=== PATIENT | male | born 1960 | race Caucasian/White ===

== ENCOUNTER 2017-12-07 08:31 | Inpatient (IN) ==
--- NOTE | 2017-12-07 08:39 | Emergency Department Report ---
Dizziness HPI - General Stated Complaint: dizzy,no appetite, Time Seen by Provider: 12/07/17 08:39 Source: patient Mode of arrival: ambulatory Limitations: no limitations - History of Present Illness HPI Narrative: Patient is a 57-year-old male presents emergency room for evaluation of a chief complaint of dizziness. Patient states he has been dizzy for about a week, and "not feeling well". Patient has not been eating well or drinking well for the past several days, did see his primary medical physician today for medication check, at that time patient was found to have a blood pressure of 80/50, so patient was referred to the ER for evaluation. Patient denies any chest pain or shortness of breath fevers or chills. Patient did urinate this morning " very dark". MD complaint: dizziness, lightheadedness Onset (ago): week(s) - Related Data Home Medications Medication Instructions Recorded Confirmed Cholecalciferol (Vitamin D3) 400 unit PO DAILY #0 03/04/16 12/07/17 [Vitamin D3] Etanercept [Enbrel Sureclick] 50 mg SQ WEEKLY #392 03/04/16 12/07/17 Diclofenac [Voltaren] 1 applicatio TOP BID PRN 12/07/17 12/07/17 Fluticasone Nasal [place] [Flonase] 1 spray EA NOSTRIL DAILY PRN 12/07/17 12/07/17 Hydrocodone/APAP 5/325 [[place] 1 tab PO QID PRN 12/07/17 12/07/17 5/325] azaTHIOprine [Imuran] 50 mg PO BID 12/07/17 12/07/17 Allergies Allergy/AdvReac Type Severity Reaction Status Date / Time No Known Allergies Allergy Verified 12/07/17 09:09 Review of Systems Constitutional: Reports: weakness. Denies: fever, chills Eyes: Denies: eye pain, eye discharge, vision change ENT: Denies: throat pain, dental pain Cardiovascular: Denies: chest pain, palpitations, dyspnea on exertion Respiratory: Denies: cough, dyspnea, wheezes Gastrointestinal: Denies: abdominal pain, nausea, vomiting Genitourinary: Denies: dysuria, frequency Musculoskeletal: Denies: back pain Neurological: Denies: headache, weakness Psychiatric: Denies: anxiety, depression Endocrine: Denies: fatigue, heat or cold intolerance PFSH Patient Stated Medical History Other HEENT Yes: a lot of sore throats Pneumonia Yes Other Musculoskeletal Yes: RA Shingles Yes Medical History Updates: Rheumatoid arthritis. History of alcohol - Social History Substance use type: does not use Physical Exam - Limitations Limitations: no limitations - General General appearance: alert, in no apparent distress - Eye Eye exam: Present: PERRL, EOMI - ENT ENT exam: Present: normal oropharynx, mucous membranes dry, TM's normal bilaterally - Neck Neck exam: Present: full ROM - Chest Chest inspection: Present: symmetric chest wall rise. Absent: tenderness - Respiratory Respiratory exam: Present: normal lung sounds bilaterally. Absent: respiratory distress, wheezes, stridor - Cardiovascular Cardiovascular exam: Present: regular rate, normal rhythm, normal heart sounds - Abdominal Exam Abdominal exam: Present: soft, normal bowel sounds. Absent: distention, tenderness - Skin Skin exam: Present: warm, dry, pallor - Neurological Exam Neurological exam: Present: alert, oriented X3 - Psychiatric Psychiatric exam: Present: normal affect, normal mood Course Vital Signs Temperature 98.8 F 12/07/17 08:31 Pulse Rate 138 H 12/07/17 08:31 Respiratory Rate 18 12/07/17 08:31 Blood Pressure 97/51 12/07/17 08:31 Pulse Oximetry 91 12/07/17 08:31 Temperature 98.8 F 12/07/17 08:31 Pulse Rate 138 H 12/07/17 08:31 Respiratory Rate 18 12/07/17 08:31 Blood Pressure 97/51 12/07/17 08:31 Pulse Oximetry 91 12/07/17 08:31 Dizziness - MDM Narrative Medical decision making narrative: Discuss case with Dr. Ying, he will admit patient CCU septic shock right upper lobe pneumonia - Medical Records Attestation: I reviewed the patient's medical records. - Lab Data Attestation: I reviewed the patient's lab results. Result diagrams: 12/07/17 08:49 12/07/17 08:49 Lab Results 12/07/17 12/07/17 12/07/17 Range/Units 08:49 08:49 08:49 WBC 3.7 L (4.5-11.0) T/MM3 RBC 2.38 L (4.50-5.90) M/MM3 Hgb 8.9 L (13.5-17.5) GM/DL Hct 24.6 L (41-53) % MCV 103.4 H (80-100) UM3 MCH 37.4 H (26-34) UUG MCHC 36.2 (31-37) GM/DL RDW Std Deviation 55.7 H (36.9-50.2) FL Plt Count 16 L* (130-400) T/MM3 MPV Not performed Immature Gran % (Auto) Not performed Neut % (Auto) Not performed Lymph % (Auto) Not performed [place] % (Auto) Not performed Eos % (Auto) Not performed Baso % (Auto) Not performed Neut # (Auto) Not performed Lymph # (Auto) Not performed [place] # (Auto) Not performed Eos # (Auto) Not performed Baso # (Auto) Not performed Abs Immat Gran (auto) Not performed Neutrophils % (Manual) 73.0 H (33-66) % Band Neutrophils % 9.0 H (0-6) % Lymphocytes % (Manual) 9.0 L (23-45) % Monocytes % (Manual) 8.0 (0-9.0) % Metamyelocytes % 1.0 H (0-0) % Neutrophils # (Manual) 2.7 (1.8-7.7) T/MM3 Band Neutrophils # 0.3 T/MM3 Lymphocytes # (Manual) 0.3 L (1-4.8) T/MM3 Monocytes # (Manual) 0.3 (0-0.8) T/MM3 Metamyelocytes # 0.0 T/MM3 Nucleated RBCs 4 Polychromasia 1+ Anisocytosis 1+ Macrocytosis 1+ Tear Drop Cells 1+ Helmet Cells 1+ Schistocytes 1+ RBC Morph Comment Abnormal INR 1.14 (0.99-1.21) Turbidity < 20 (0-20) Sodium 126 L (134-144) MEQ/L Potassium 4.8 (3.6-5) MEQ/L Chloride 90 L (98-107) MEQ/L Carbon Dioxide 23 (22-30) MEQ/L Anion Gap 13 (5-15) MEQ/L BUN 26.0 H (9-20) MG/DL Creatinine 0.9 (0.8-1.5) MG/DL GFR Calculation 87 BUN/Creatinine Ratio 29 H (6-26) RATIO Glucose 135 H (75-110) MG/DL Calculated Osmolality 250 L (261-280) MOSM/KG Calcium 10.4 H (8.4-10.2) MG/DL Total Bilirubin 2.40 H (0.20-1.30) MG/DL Icterus Index < 2 (0-7) AST 143 H (17-59) U/L ALT 65 (21-72) U/L Alkaline Phosphatase 553 H (38-126) U/L Creatine Kinase 125 (55-170) U/L Troponin I < 0.012 (0-0.12) ng/ml Total Protein 6.0 L (6.3-8.2) G/DL Albumin 2.8 L (3.5-5.0) G/DL Globulin 3.2 (2.4-3.6) G/DL Albumin/Globulin Ratio 0.9 L (1.1-2.2) RATIO Lipase 226 (23-300) U/L Plasma Lactate 4.5 H* (0.6-2.2) MMOL/L Procalcitonin NG/ML Specimen Hemolysis 52 H (0-25) 12/07/17 Range/Units 08:49 WBC (4.5-11.0) T/MM3 RBC (4.50-5.90) M/MM3 Hgb (13.5-17.5) GM/DL Hct (41-53) % MCV (80-100) UM3 MCH (26-34) UUG MCHC (31-37) GM/DL RDW Std Deviation (36.9-50.2) FL Plt Count (130-400) T/MM3 MPV Immature Gran % (Auto) Neut % (Auto) Lymph % (Auto) [place] % (Auto) Eos % (Auto) Baso % (Auto) Neut # (Auto) Lymph # (Auto) [place] # (Auto) Eos # (Auto) Baso # (Auto) Abs Immat Gran (auto) Neutrophils % (Manual) (33-66) % Band Neutrophils % (0-6) % Lymphocytes % (Manual) (23-45) % Monocytes % (Manual) (0-9.0) % Metamyelocytes % (0-0) % Neutrophils # (Manual) (1.8-7.7) T/MM3 Band Neutrophils # T/MM3 Lymphocytes # (Manual) (1-4.8) T/MM3 Monocytes # (Manual) (0-0.8) T/MM3 Metamyelocytes # T/MM3 Nucleated RBCs Polychromasia Anisocytosis Macrocytosis Tear Drop Cells Helmet Cells Schistocytes RBC Morph Comment INR (0.99-1.21) Turbidity (0-20) Sodium (134-144) MEQ/L Potassium (3.6-5) MEQ/L Chloride (98-107) MEQ/L Carbon Dioxide (22-30) MEQ/L Anion Gap (5-15) MEQ/L BUN (9-20) MG/DL Creatinine (0.8-1.5) MG/DL GFR Calculation BUN/Creatinine Ratio (6-26) RATIO Glucose (75-110) MG/DL Calculated Osmolality (261-280) MOSM/KG Calcium (8.4-10.2) MG/DL Total Bilirubin (0.20-1.30) MG/DL Icterus Index (0-7) AST (17-59) U/L ALT (21-72) U/L Alkaline Phosphatase (38-126) U/L Creatine Kinase (55-170) U/L Troponin I (0-0.12) ng/ml Total Protein (6.3-8.2) G/DL Albumin (3.5-5.0) G/DL Globulin (2.4-3.6) G/DL Albumin/Globulin Ratio (1.1-2.2) RATIO Lipase (23-300) U/L Plasma Lactate (0.6-2.2) MMOL/L Procalcitonin 12.91 H* NG/ML Specimen Hemolysis (0-25) - Radiology Data Attestation: I reviewed the patient's radiology results. Chest x-ray shows right upper lobe pneumonia Disposition Clinical Impression: Septic shock Right upper lobe pneumonia Qualifiers: Pneumonia type: due to unspecified organism Qualified Code(s): J18.1 - Lobar pneumonia, unspecified organism Disposition: 02 To [facility] Acute Care Condition: Stable Prescriptions: No Action Cholecalciferol (Vitamin D3) [Vitamin D3] 400 unit PO DAILY #0 Fluticasone Nasal [place] [Flonase] 1 spray EA NOSTRIL DAILY PRN PRN Reason: Prn Orders azaTHIOprine [Imuran] 50 mg PO BID Diclofenac [Voltaren] 1 applicatio TOP BID PRN PRN Reason: Pain Etanercept [Enbrel Sureclick] 50 mg SQ WEEKLY #392 Hydrocodone/APAP 5/325 [[place] 5/325] 1 tab PO QID PRN PRN Reason: Pain Referrals: Jair Danielle MD [Family Provider] - Time of Disposition: 09:58 - Seen By: physician
[2017-12-07] MEDS ORDERED: NS 1,000 ML IV ONE ×2 (08:43→09:13)
[2017-12-07] MEDS ORDERED: CEFEPIME 1 GM in NS 100 ML IV ONE (08:43)
[2017-12-07] MEDS: SALINE FLUSH 10ml SYRINGE IVF PRN ×3 (08:54→18:35)
--- NOTE | 2017-12-07 09:46 | XRay Report ---
Indication: dizziness shortness of air sepsis workup XR chest 2V: Comparison: 04/23/2012 Technique: PA and lateral chest Findings: Patient continues to show chronic appearing lung changes without superimposed pneumonic infiltrate involving the lower portion of the right upper lobe laterally. Follow-up after aggressive medical treatment suggested. Heart, mediastinum and central vascularity are unremarkable. Left lung shows no acute findings. Patient showed degenerative changes throughout the spine similar to the previous study. No new fractures are identified. Impression: 1. Probable pneumonic infiltrate involving the right upper lobe with follow-up imaging recommended after treatment. .
--- NOTE | 2017-12-07 10:36 | History & Physical Report ---
History of Present Illness Date: 12/07/17 Chief complaint: WEAKNESS HPI: "Jumana Baker is a 57 year-old immunocompromised male with a history of rheumatoid arthritis. He sees Dr. Hetal Jolly for RA and Dr. Finn Danielle for primary care. He reports that he's been sick with mild cough, shortness of breath dizziness and lightheadedness which is worse with change in positions, generalized weakness, poor oral intake (limited to jello, pudding, and tea) and dark-colored urine, sinus drainage, sore throat, headache, and body aches for almost a week. His legs have become very swollen. His friend, Andre, also reported that he's had hallucinations. He's been sleeping more, and he would wake up briefly with hallucinations, fall back asleep. When he woke back up he was lucid again. Edwin denies fevers or chills, vomiting or diarrhea, chest pain , or rashes/easy bruising/bleeding. His , Emelyn, has been trying to care for him at home over the weekend. Andre reports that Edwin finally agreed to see Dr. Danielle on 12/07/17. He was hypotensive, and Dr. Danielle recommended evaluation in the ED. There, his initial BP was 97/61 and HR was 138. Saturation was 91% on room air. IVF bolus per sepsis protocol was started. CXR revealed right sided pneumonia. He was found to be in septic shock with a lactate of 4.5. Procalcitonin was elevated at 12.91. In addition, he had organ dysfunction including thrombocytopenia with platelet count of 16 (which is a new finding -- he has had normal platelet counts in 2017), and hyperbilirubinemia with a total bilirubin of 2.4 (also a new finding). CRP was 570 (typically he is <0.5). Na was low at 126. WBC was low at 3.7; hgb was 8.9. He received 2L fluids in the ED which exceeds the 30 mL/kg bolus for septic shock. He was also started on cefepime. Dr. Vivar was notified and Mr. Baker was admitted to inpatient status for aggressive management of septic shock, organ dysfunction, cardiovascular support, and pneumonia. Review of Systems All systems PM: 10-point ROS was reviewed, no additional remarkable complaints except - Constitutional Constitutional: Present: as per HPI - EENMT Eyes: Absent: change in vision Balance: Present: as per HPI Nose: Present: as per HPI Mouth/Throat: Present: as per HPI - Cardiovascular Cardiovascular: Present: as per HPI Vascular: Present: see HPI - Respiratory Respiratory: Present: as per HPI - Gastrointestinal Gastrointestinal: Present: as per HPI - Genitourinary Genitourinary: Present: as per HPI - Musculoskeletal Musculoskeletal: Present: as per HPI, deformity (hands - RA) - Integumentary/Breasts Integumentary: Present: as per HPI - Neurological Neurological: Present: as per HPI - Psychiatric Psychiatric: Present: as per HPI - Endocrine Endocrine: Absent: polydipsia, polyuria - Hematologic/Lymphatic Hematologic/Lymphatic: Present: as per HPI - Allergic/Immunologic Allergic/Immunologic: Absent: tongue swelling Past Medical History Rheumatoid arthritis Immunocompromised Chronic antritis Depression Insomnia Chronic hyponatremia (131-134) Surgical History: Cyst removed from the left side of his neck Family History Updates: Mother had RA and emphysema. She in the mid but he's not sure of her age. Father had RA and lung cancer. Other records also show CAD. He in the mid but he's not sure of age. patient isn' t sure about medical history of paternal/maternal grandparents. He has 2 brothers with RA, 1 brother who is healthy. 1 step brother and 1 step sister are also healthy. 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 [employer] Social history: PCP - Shashi Jolyl ENT - [place] Medications Home Medications Medication Instructions Recorded Confirmed Type Cholecalciferol (Vitamin D3) 400 unit PO DAILY #0 03/04/16 12/07/17 History [Vitamin D3] Etanercept [Enbrel Sureclick] 50 mg SQ WEEKLY #392 03/04/16 12/07/17 History Diclofenac [Voltaren] 1 applicatio TOP BID PRN 12/07/17 12/07/17 History Fluticasone Nasal [place] [Flonase] 1 spray EA NOSTRIL DAILY PRN 12/07/17 History Hydrocodone/APAP 5/325 [[place] 1 tab PO QID PRN 12/07/17 12/07/17 History 5/325] azaTHIOprine [Imuran] 50 mg PO BID 12/07/17 12/07/17 History Allergies Allergy/AdvReac Type Severity Reaction Status Date / Time No Known Allergies Allergy Verified 12/07/17 09:09 Exam Vital Signs: Temperature 98.8 F 12/07/17 08:31 Pulse Rate 105 H 12/07/17 10:15 Respiratory Rate 20 12/07/17 10:15 Blood Pressure 91/58 12/07/17 10:15 Pulse Oximetry 100 12/07/17 10:15 Telemetry Rhythm: Sinus Tachycardia - Constitutional Present: no acute distress, thin - Routine HEENT Exam Head: Present: normocephalic Eye: Present: PERRL, conjunctival icterus (subtle) ENT: Present: mucous membranes dry, oropharynx clear. Absent: dentition normal (edentulous) - Routine Neck Exam Absent: lymphadenopathy - Routine Respiratory Exam Present: decreased breath sounds, wheezes (very faint, scattered), crackles ( right) - Routine Cardiovascular Exam Present: RRR, S1, S2, tachycardia Comments: radial pulses +2 pedal pulses +1 - Routine Abdominal Exam Present: soft, normoactive bowel sounds, tenderness (RUQ), non distended, organomegaly (hepatomegaly) - Routine Extremities Exam Present: edema (4+ BLE). Absent: normal capillary refill (>2 sec.) Comments: Rheumatoid deformity to hands/fingers - Routine Skin Exam Present: intact, dry, pallor, warm Comments: cap refill >2 sec. - Routine Neurological Exam Present: alert, oriented X3, CN II-XII intact, normal speech - Routine Psychiatric Exam Present: normal affect, normal thought process, cooperative Results - Labs CBC & Chem 7: 12/07/17 08:49 12/07/17 08:49 - ECG Data Tracing #1 I reviewed this ECG and interpreted as documented below: Sinus tachycardia, rate 111; no ST segment depression/elevation - Imaging and Cardiology Chest x-ray Status: image reviewed by me (Rt upper/lower infiltrates) Assessment and Plan (1) Septic shock Current visit: Yes Status: Acute Assessment and Plan: IMPRESSION Sepsis secondary to Right sided pneumonia Septic shock based on lactate of 4.5 (per CMS) Severe sepsis based on 2016 Surviving Sepsis Guidelines Organ dysfunction = MAP <70, hyperbilirubinemia (2.4), thrombocytopenia ( 16) SOFA on admission = 7, presumed baseline of 0 Acute on chronic Hyponatremia, POA (baseline 131-134) Pancytopenia, POA, including platelet count of 16 and hgb of 8.9 Hyperbilirubinemia, elevated AST and Alk phos, POA Hypercalcemia, POA Elevated CRP and procalcitonin, secondary to acute infection Macrocytic anemia Rheumatoid arthritis Immunocompromised Chronic antritis PLAN Admit, inpatient status, to CCU; Patient is critically ill. Dr. Vivar attending. Septic shock based on CMS and Severe Sepsis based on Surviving Sepsis He received full 30 mL/kg bolus in ED. If unable to keep MAP >65, will need to start norepinephrine, which would indicate shock based on 2016 rec. Initial lactate was 4.5; if lactate is still elevated >4 on recheck, this would also indicate shock based on 2016 recommendations. Blood cultures already drawn. Repeat physical exam done. Repeat procalcitonin in am. Sinus tachycardia has improved after fluid boluses, from 138-105. Right sided pneumonia in an immunocompromised patient with significant smoking history. Cefepime was started in the ED -- will continue with this and add vancomycin and cefepime d/t immunocompromised state. Check for strep pneumo and legionella. Check sputum culture. Consult Dr. Mckinney; suspect he may require additional respiratory intervention and with smoking hx likely has underlying COPD. Ev Pan. Ask RT to provide tobacco cessation information. Nicotine patch ordered. Hold RA medications including Enbrel & Imuran. Pancytopenia Suspect d/t sepsis. If no improvement in next few days consider heme consultation. Platelets only 16 on admission. Will give platelet pack x1. Lovenox is contraindicated. Macrocytic anemia - check iron studies, folate, vitamin B12. Hyperbilirubinemia Suspect d/t sepsis. Hepatomegaly and RUQ tenderness. He had liver sono in Aug which was normal. Consider repeating sono. Check INR. Hyponatremia and hypercalcemia Suspect d/t dehydration. Continue IVF and check in am. Advanced directives None. Requests full resuscitation. DVT Prophylaxis: SCD's, GIBRAN Hose Resuscitation Status: Full Code - Time spent with patient Time with patient PN: 50 minutes - Physician Narrative Physician: Wesley Vivar MD Narrative: Date: 12/07/17 Time: 1029 (MEDICAL OFFICE REP), 1305 Cb Have independently interviewed and examined pt. Chart reviewed. Case discussed with ED provider, CCU nursing, and my PATIENT CASE COORDINATOR. Care plan developed with my supervision; agree with above. Feeling sick for at least 1 week-increasing chest congestion and cough. Not mobilizing sputum. Appetite declining-not hungry. Nausea with eating. Progressively more weak, dizzy with positional changes. No falls or trauma. Chills. finally convinced him to go to clinic. Seen there and urgently directed to ED secondary to the acuity of his illness. Meeting septic shock in ED. CXR showing infiltrate. EXAM and Septic Shock evaluation: Lungs: decreased, no distress on 1L O2 CV: tachy, regular. Normal radial pulses bilaterally. MSE: awake alert, converses well. Skin: Normal color and temp, Cap refill less than 2 seconds Plan: Inpatient admission to CCU for treatment of his septic shock - anticipate greater than 2 midnights of care needed. Triple antibiotic therapy secondary to immunosuppression. 30mg/KG IV Bolus given in ED. Continue IVF for support; currently maintaining MAP above 65. O2 for respiratory support. Transfuse platelets. SCD (No Lovenox secondary to thrombocytopenia). Hospital Course Summary Disclaimer: The visit summary below is not to be considered part of the above Progress Note. Hospital Course: 12/07/17 Admit, inpatient status, to CCU; Patient is critically ill. Dr. Vivar attending. Septic shock based on CMS and Severe Sepsis based on Surviving Sepsis He received full 30 mL/kg bolus in ED. If unable to keep MAP >65, will need to start norepinephrine, which would indicate shock based on 2016 rec. Initial lactate was 4.5; if lactate is still elevated >4 on recheck, this would also indicate shock based on 2016 recommendations. Blood cultures already drawn. Repeat physical exam done. Repeat procalcitonin in am. Sinus tachycardia has improved after fluid boluses, from 138-105. Right sided pneumonia in an immunocompromised patient with significant smoking history. Cefepime was started in the ED -- will continue with this and add vanco d/t immunocompromised state. Check for strep pneumo and legionella. Check sputum culture. Consult Dr. Mckinney; suspect he may require additional respiratory intervention and with smoking hx likely has underlying COPD. Ev Pan. Ask RT to provide tobacco cessation information. Nicotine patch ordered. Hold RA medications including Enbrel & Imuran. Pancytopenia Suspect d/t sepsis. If no improvement in next few days consider heme consultation. Platelets only 16 on admission. Will give platelet pack x1. Lovenox is contraindicated. Macrocytic anemia - check iron studies, folate, vitamin B12. Hyperbilirubinemia Suspect d/t sepsis. Hepatomegaly and RUQ tenderness. He had liver sono in Aug which was normal. Consider repeating sono. Check INR. Hyponatremia and hypercalcemia Suspect d/t dehydration. Continue IVF and check in am. Advanced directives None. Requests full resuscitation.
[2017-12-07] MEDS ORDERED: ALBUTEROL/IPRATROPIUM 2.5mg-0.5mg/3ml NEB AEROSOL SCH (11:00)
[2017-12-07] MEDS ORDERED: VANCOMYCIN - PHARMACY CONSULT MC ONE ×2 (11:09→11:21)
[2017-12-07] MEDS ORDERED: CEFEPIME 1 GM in NS 100 ML IV SCH (11:21)
[2017-12-07] MEDS ORDERED: FLUTICASONE NASAL SPRAY 50mcg EA NOSTRIL PRN (11:25)
[2017-12-07] MEDS: NS 1,000 ML IV SCH ×2 (11:38→22:47)
--- NOTE | 2017-12-07 11:54 | Pulmonology Consult Note ---
<Sara Espinosa - Last Filed: 12/07/17 12:14> History of Present Illness Consult date: 12/07/17 Requesting physician: Wesley Vivar Reason for consult: dyspnea, cough, COPD, pneumonia Chief complaint: SOB History of present illness: This is a 57 yo male with a Hx of RA on Imuran and Enbrel for several years. He sees Dr. Hetal Jolly for his RA, was seen in the past 4 months with blood drawn and was told everything was fine and continued on his same therapies. He states for the past week he has had SOB, fatigue and generalization of not feling well. He did notice increased BLE edema, + cough but no sputum. States his SOB continued to increase and he was seen at his PCP's office today where it was recommended he be admitted to the hospital due to hypotension. In the ER his initial BP was 97/61 and HR was 138. Saturation was 91% on room air. He was found to be in septic shock with a lactate of 4.5, Procalcitonin was elevated at 12.91, Na 126, plt 16, CRP 570 (typically he is <0.5), WBC 3.7. CXR revealed right sided pneumonia. He was given cefepime in ER and 2L IVF for sepsis. He was admitted for further cares. We have been consulted for his pneumonia and likely COPD. Review of Systems - Constitutional Constitutional: Present: daytime sleepiness, fatigue, weakness. Absent: anorexia, chills, fever(s), increased appetite - EENT Eyes: Absent: blurry vision, change in vision, diplopia Nose: Absent: change in smell, pain Mouth/Throat: Present: mucosa dry - Cardiovascular Cardiovascular: Present: dyspnea on exertion. Absent: chest pain, palpitations - Respiratory Respiratory: Present: cough, dyspnea, dyspnea on exertion. Absent: wheezing - Gastrointestinal Gastrointestinal: Absent: abdominal pain, change in bowel habits - Musculoskeletal Additional comments: Hx RA, deformities to hands - Integumentary/Breasts Integumentary: Absent: alopecia, change in hair, change in nails - Neurological Neurological: Absent: abnormal movements, abnormal speech - Psychiatric Psychiatric: Present: abnormal sleep pattern. Absent: anxiety, mood swings - Hematologic/Lymphatic Hematologic/Lymphatic: Absent: easy bleeding, easy bruising - Allergic/Immunologic Allergic/Immunologic: Absent: tongue swelling, throat swelling PFSH Patient Stated Medical History Dental Problems Yes: poor fitting dentures Other HEENT Yes: a lot of sore throats Hypotension Yes: with sepsis 11/2017 Pneumonia Yes Other Respiratory Yes: 40 pk/yr hx. started smoking 1977 Gastrointestinal Bleeding Yes: current Clotting Problems Yes: thrombocytopenia Other Musculoskeletal Yes: RA Shingles Yes Medical History Updates: Rheumatoid arthritis. History of alcohol Surgical History: Cyst removed from the left side of his neck - Social History Smoking status: Current every day smoker (started smoking at age 17; has smoked 1-1.5 ppd since then) Housing: house Household members: spouse Medications Home Medications Medication Instructions Recorded Confirmed Type Cholecalciferol (Vitamin D3) 400 unit PO DAILY #0 03/04/16 12/07/17 History [Vitamin D3] Etanercept [Enbrel Sureclick] 50 mg SQ WEEKLY #392 03/04/16 12/07/17 History Diclofenac [Voltaren] 1 applicatio TOP BID PRN 12/07/17 12/07/17 History Fluticasone Nasal [place] [Flonase] 1 spray EA NOSTRIL DAILY PRN 12/07/17 History Hydrocodone/APAP 5/325 [[place] 1 tab PO QID PRN 12/07/17 12/07/17 History 5/325] azaTHIOprine [Imuran] 50 mg PO BID 12/07/17 12/07/17 History Allergies Allergy/AdvReac Type Severity Reaction Status Date / Time No Known Allergies Allergy Verified 12/07/17 09:09 Exam Vital signs: Temperature 98.8 F 12/07/17 08:31 Pulse Rate 105 H 12/07/17 10:15 Respiratory Rate 20 12/07/17 10:15 Blood Pressure 91/58 12/07/17 10:15 Pulse Oximetry 100 12/07/17 10:15 - Constitutional no acute distress, thin, cooperative - Routine HEENT Exam Head: Present: normocephalic, atraumatic Eye: Present: EOMI, PERRL - Routine Neck Exam Present: supple, full ROM, trachea midline - Routine Respiratory Exam Present: rhonchi. Absent: accessory muscle use, patient mechanically ventilated - Routine Cardiovascular Exam Present: RRR, S1, S2, no murmur - Routine Abdominal Exam Present: soft, normoactive bowel sounds - Routine Extremities Exam Present: edema, non tender, full ROM - Routine Back/Spine/Pelvis Exam Back/Spine: Present: full ROM - Routine Skin Exam Present: intact, dry - Routine Neurological Exam Present: alert, oriented X3, CN II-XII intact - Routine Psychiatric Exam Present: normal affect, normal thought process Results - Laboratory Findings CBC and BMP: 12/07/17 08:49 12/07/17 08:49 PT/INR, D-dimer INR 1.14 (0.99-1.21) 12/07/17 08:49 - Diagnostic Findings Chest x-ray: image reviewed (as noted in HPI) Assessment and Plan - Assessment and Plan Acute Hypoxic Respiratory Failure Sepsis RUL pneumonia RA/Immune compromised Pancytopenia - likely 2/2 sepsis Likely COPD Tobaccoism Hyponatremia Plan: Pt currently on O2 at 2L per NC and saad well, keep O2 to keep sats 90-95%. Will increase A/A to q4hr, start acapella. Highly encourage smoking cessation. Pt septic, CXR shows RUL infiltrates, WBC low 3.7, bands 9, procal 12.9, plasma 4.5 , on cefepime, levaquin and vanco. Follow CXR, already received 2L bolus in ER now on NS 125ml/hr. Recheck lactate per protocol and procal in am. Cont to hold Imuran and Enbrel. BC pending, awaiting sputum sample, strep/leg urine antigen pending. - Time Spent With Patient Total time spent is greater than 50% in coordination of care (as documented) at patient's floor/unit and/or counseling patient: 25 - 35 minutes <Christiano Mckinney - Last Filed: 12/08/17 16:45> [facility] Patient Stated Medical History Dental Problems Yes: poor fitting dentures Other HEENT Yes: a lot of sore throats Hypotension Yes: with sepsis 11/2017 Pneumonia Yes Other Respiratory Yes: 40 pk/yr hx. started smoking 1977 Gastrointestinal Bleeding Yes: current Hx Renal Disease No Clotting Problems Yes: thrombocytopenia Other Musculoskeletal Yes: RA Shingles Yes Exam Vital signs: Temperature 98.7 F 12/08/17 13:00 Pulse Rate 138 H 12/08/17 13:30 Respiratory Rate 16 12/08/17 16:14 Blood Pressure 113/66 12/08/17 13:30 Pulse Oximetry 94 12/08/17 16:14 Results - Laboratory Findings CBC and BMP: 12/08/17 11:38 12/08/17 04:28 PT/INR, D-dimer INR 1.14 (0.99-1.21) 12/07/17 08:49 Abnormal lab findings: Abnormal Labs 12/07/17 12/07/17 12/07/17 12:57 18:13 18:34 WBC RBC Hgb Hct MCV MCH RDW Std Deviation Plt Count 28 L* D Neutrophils % (Manual) Lymphocytes % (Manual) Monocytes % (Manual) Neutrophils # (Manual) Lymphocytes # (Manual) Sodium Creatinine BUN/Creatinine Ratio Calculated Osmolality Total Bilirubin AST Alkaline Phosphatase Total Protein Albumin Albumin/Globulin Ratio Prealbumin < 3.0 L Procalcitonin Urine Protein Trace A Urine Ketones Trace A Urine Bilirubin 1+ A 12/08/17 12/08/17 12/08/17 04:28 04:28 04:28 WBC 2.4 L RBC 1.80 L Hgb 6.7 L D Hct 18.9 L D MCV 105.0 H MCH 37.2 H RDW Std Deviation 57.3 H Plt Count 30 L Neutrophils % (Manual) 70.0 H Lymphocytes % (Manual) 11.0 L Monocytes % (Manual) 13.0 H Neutrophils # (Manual) 1.7 L Lymphocytes # (Manual) 0.3 L Sodium 128 L Creatinine 0.6 L D BUN/Creatinine Ratio 28 H Calculated Osmolality 249 L Total Bilirubin 1.40 H AST 63 H D Alkaline Phosphatase 349 H D Total Protein 4.9 L Albumin 2.1 L Albumin/Globulin Ratio 0.8 L Prealbumin Procalcitonin 11.91 H* Urine Protein Urine Ketones Urine Bilirubin 12/08/17 11:38 WBC RBC Hgb 8.7 L D Hct MCV MCH RDW Std Deviation Plt Count Neutrophils % (Manual) Lymphocytes % (Manual) Monocytes % (Manual) Neutrophils # (Manual) Lymphocytes # (Manual) Sodium Creatinine BUN/Creatinine Ratio Calculated Osmolality Total Bilirubin AST Alkaline Phosphatase Total Protein Albumin Albumin/Globulin Ratio Prealbumin Procalcitonin Urine Protein Urine Ketones Urine Bilirubin Assessment and Plan (1) Acute hypoxemic respiratory failure Status: Acute Current Visit: Yes (2) Septic shock Status: Acute Current Visit: Yes - Time Spent With Patient Total time spent is greater than 50% in coordination of care (as documented) at patient's floor/unit and/or counseling patient: - Attestation Attestation Narrative: I have personally interviewed and examined this patient. I have reviewed all pertinent data and discussed the case with the nurse and the family at bedside. I discussed the case with Dr Vivar. The above notes represent my findings and recommendations
[2017-12-07] MEDS: LEVOFLOXACIN PB 750 MG/150 ML BAG IV SCH (12:07)
[2017-12-07] MEDS: NICOTINE 21 MG PATCH TD SCH (12:11)
--- NOTE | 2017-12-07 12:44 | Pharmacy Consult-Antibiotics ---
Pharmacy Consult-Vancomycin - Laboratory Information WBC 3.7 T/MM3 (4.5-11.0) L 12/07/17 08:49 BUN 26.0 MG/DL (9-20) H 12/07/17 08:49 Creatinine 0.9 MG/DL (0.8-1.5) 12/07/17 08:49 Procalcitonin 12.91 NG/ML H* 12/07/17 08:49 - Consult Information 57 y.o. Male admitted with symptoms of shortness of air, lightheadedness, body aches, hypotensive. Chest x-ray report notes probable pneumonia involving the upper right lobe. Cefepime, Levofloxacin and Vancomycin were initiated for empiric coverage of sepsis. Goal Vanco trough range= 15 to 20 mcg/ml Will give a Vancomycin bolus dose of 1,750 mg IV then Vancomycin 1250 mg IV Q12h Pharmacy will monitor and adjust as needed. Thank you for the Vanco dosing consult, Mitali Anderson [facility]
[2017-12-07] MEDS ORDERED: BENZONATATE 100 MG CAPSULE PO PRN (12:48)
[2017-12-07] MEDS ORDERED: PROMETHAZINE/CODEINE ORAL LIQUID 5ml PO PRN (12:49)
[2017-12-07] MEDS ORDERED: BISACODYL 10 MG SUPPOSITORY RECTALLY PRN (12:53)
[2017-12-07] MEDS: NS FLUSH BAG 500ml IV PRN (15:00)
[2017-12-07] MEDS: ALBUTEROL/IPRATROPIUM 2.5mg-0.5mg/3ml NEB AEROSOL SCH ×3 (15:26→22:55)
[2017-12-07] MEDS: HYDROCODONE/APAP 5mg/325mg TABLET PO PRN (16:08)
[2017-12-07] MEDS: CEFEPIME 1 GM in NS 50 ML IV SCH ×2 (16:11→21:09)
[2017-12-07] MEDS: MORPHINE SULFATE 2mg INJECTION IVP PRN (22:07)
[2017-12-08] MEDS: ALBUTEROL/IPRATROPIUM 2.5mg-0.5mg/3ml NEB AEROSOL SCH ×6 (03:17→23:50)
[2017-12-08] MEDS: CEFEPIME 1 GM in NS 50 ML IV SCH ×4 (04:44→21:27)
[2017-12-08] MEDS: NS 1,000 ML IV SCH (05:16)
[2017-12-08] MEDS ORDERED: NS FLUSH BAG 500ml IV PRN (05:27)
--- NOTE | 2017-12-08 08:42 | XRay Report ---
Indication: pna PROCEDURE: XR chest 1V: Encounter: Initial Comparison: December 07, 2017 Findings: New right PICC line in place with the tip projecting over the expected cavoatrial junction. Worsening dense consolidation in the right upper lobe and right infrahilar region. Small right effusion. No pneumothorax. Left lung is grossly clear. Heart size and mediastinal contours are stable. Impression: New right PICC line appears appropriately positioned. Severe right-sided pneumonia. .
[2017-12-08] MEDS: NICOTINE 21 MG PATCH TD SCH (09:22)
[2017-12-08] MEDS: NICOTINE PATCH REMOVAL TD SCH (09:24)
[2017-12-08] MEDS: HYDROCODONE/APAP 5mg/325mg TABLET PO PRN ×2 (09:31→21:26)
--- NOTE | 2017-12-08 10:20 | Progress Note ---
- Date 12/08/17 Subjective: F/U: Septic shock, pneumonia Doing fair. Working more to breath - still with cough/congestion, hard to mobilize sputum. Oral drive decreased-working on intake, but coughs with swallow. Mouth and throat sore. Slight nausea, not having ab pain or cramping. Very weak in general. Objective Vital signs: Temperature 98.4 F 12/08/17 08:00 Pulse Rate 132 H 12/08/17 08:00 Respiratory Rate 22 12/08/17 08:00 Blood Pressure 113/63 12/08/17 08:00 Pulse Oximetry 93 12/08/17 08:00 Height/Weight/BMI: Height 1.7 m Weight 61.1 kg Body Mass Index 21.1 - Constitutional Present: mild distress, well developed, average body habitus, cooperative. Absent: agitated - Routine HEENT Exam Head: Present: normocephalic, atraumatic Eye: Present: EOMI, PERRL ENT: Present: mucous membranes dry - Routine Respiratory Exam Present: decreased breath sounds, rales, respiratory distress, rhonchi, distant breath sounds, diminished air movement - Routine Cardiovascular Exam Present: no murmur, tachycardia (Regular) - Routine Abdominal Exam Present: soft, non distended, non tender. Absent: normoactive bowel sounds ( Decreased ) - Routine Extremities Exam Present: edema (+2 pedal edema bilaterally), pulses intact, normal capillary refill. Absent: cyanosis, clubbing Comments: SCD in place - Routine Musculoskeletal Exam Musculoskeletal: Present: no clubbing or cyanosis - Routine Skin Exam Present: warm. Absent: mottling - Routine Neurological Exam Present: alert, oriented X3, CN II-XII intact, moving all extremities, vision grossly intact, hearing grossly intact, normal speech. Absent: motor deficit, altered mental status - Routine Psychiatric Exam Present: normal affect, normal thought process, cooperative. Absent: anxious, agitated Results - Labs CBC & Chem 7: 12/08/17 04:28 12/08/17 04:28 Microbiology Results: Microbiology 12/07/17 12:45 Sputum, Expectorated Gram Stain - Final 12/07/17 12:45 Sputum, Expectorated Sputum Culture - Preliminary Culture Initiated - Results Pending Assessment and Plan (1) Septic shock Current visit: Yes Status: Acute (2) Pneumonia Current visit: Yes Status: Acute Assessment and Plan: IMPRESSION Sepsis secondary to Right sided pneumonia Septic shock based on lactate of 4.5 (per CMS) Severe sepsis based on 2016 Surviving Sepsis Guidelines Organ dysfunction = MAP <70, hyperbilirubinemia (2.4), thrombocytopenia ( 16) SOFA on admission = 7, presumed baseline of 0 Pneumonia Hypoxia Acute on chronic Hyponatremia (POA) (baseline 131-134) Pancytopenia (POA) including platelet count of 16 and hgb of 8.9 Hyperbilirubinemia, elevated AST and Alk phos, POA Hypercalcemia (POA) Elevated CRP and procalcitonin, secondary to acute infection Severe PCM - prealbumin undetectable Macrocytic anemia Rheumatoid arthritis Immunocompromised Chronic antritis Tobacco dependency PLAN Continue with levofloxacin, cefepime and vancomycin for pulmonary coverage. Neb treatments and acapella to continue. Monitor saturations and work of breathing - on 2L currently. Will have speech check swallow secondary to coughing with swallow. Hemoglobin decreased to 6.7 - transfusion initiated. Iron/B12/Folate tests pending. Platelets increased to 30K. Monitor. No Lovenox due to thrombocytopenia. Sodium with slight improvement to 128, but potassium decreased to 3.7. Will change IVF to NS with 20KCl and 20KPhos and decrease rate to 75cc/hr. BP improved. Recheck CMP, Mg, Phos, Procalcitonin, and CBC secondary to resolving septic shock. Continues to need close nursing care and support, continue CCU monitoring. Case discussed with CCU nursing. Time spent with patient care 25 minutes. DVT Prophylaxis: SCD's Resuscitation Status: Full Code - Time spent with patient Time with patient PN: 25 minutes - Physician Narrative Physician: Wesley Vivar MD Narrative: Date: 12/08/17 Time: 1016 Hospital Course Summary Disclaimer: The visit summary below is not to be considered part of the above Progress Note. Hospital Course: 12/07/17 Admit, inpatient status, to CCU; Patient is critically ill. Dr. Vivar attending. Septic shock based on CMS and Severe Sepsis based on Surviving Sepsis He received full 30 mL/kg bolus in ED. If unable to keep MAP >65, will need to start norepinephrine, which would indicate shock based on 2016 rec. Initial lactate was 4.5; if lactate is still elevated >4 on recheck, this would also indicate shock based on 2016 recommendations. Blood cultures already drawn. Repeat physical exam done. Repeat procalcitonin in am. Sinus tachycardia has improved after fluid boluses, from 138-105. Right sided pneumonia in an immunocompromised patient with significant smoking history. Cefepime was started in the ED -- will continue with this and add vancomycin and levofloxacin d/t immunocompromised state. Check for strep pneumo and legionella. Check sputum culture. Consult Dr. Mckinney; suspect he may require additional respiratory intervention and with smoking hx likely has underlying COPD. Acapella, DuoNeb. Ask RT to provide tobacco cessation information. Nicotine patch ordered. Hold RA medications including Enbrel & Imuran. Pancytopenia Suspect d/t sepsis. If no improvement in next few days consider heme consultation. Platelets only 16 on admission. Will give platelet pack x1. Lovenox is contraindicated. SCD for DVT prevention. Macrocytic anemia - check iron studies, folate, vitamin B12. Hyperbilirubinemia Suspect d/t sepsis. Hepatomegaly and RUQ tenderness. He had liver sono in Aug which was normal. Check INR. Hyponatremia and hypercalcemia Suspect d/t dehydration. Continue IVF and check in am. Advanced directives None. Requests full resuscitation. 11/28/17 Continue with levofloxacin, cefepime and vancomycin for pulmonary coverage. Neb treatments and acapella to continue. Monitor saturations and work of breathing - on 2L currently. Will have speech check swallow secondary to coughing with swallow. Hemoglobin decreased to 6.7 - transfusion initiated. Iron/B12/Folate tests pending. Platelets increased to 30K. Monitor. No Lovenox due to thrombocytopenia. Sodium with slight improvement to 128, but potassium decreased to 3.7. Will change IVF to NS with 20KCl and 20KPhos and decrease rate to 75cc/hr. BP improved. Recheck CMP, Mg, Phos, Procalcitonin, and CBC secondary to resolving septic shock. Continues to need close nursing care and support, continue CCU monitoring.
[2017-12-08] MEDS: POTASSIUM CHLORIDE INJ 20 MEQ, POTASSIUM PHOSPHATE (mEq) 20 MEQ in NS 1,000 ML IV SCH (10:56)
[2017-12-08] MEDS: LEVOFLOXACIN PB 750 MG/150 ML BAG IV SCH (11:00)
[2017-12-08] MEDS: SALINE 0.65% NASAL SPRAY 44 ML BOTTLE EA NOSTRIL SCH ×4 (11:01→21:26)
[2017-12-08] MEDS: SALINE FLUSH 10ml SYRINGE IVF PRN (13:37)
[2017-12-08] MEDS: NS FLUSH BAG 500ml IV PRN (21:28)
[2017-12-09] MEDS: CEFEPIME 1 GM in NS 50 ML IV SCH ×4 (03:00→22:40)
[2017-12-09] MEDS: POTASSIUM CHLORIDE INJ 20 MEQ, POTASSIUM PHOSPHATE (mEq) 20 MEQ in NS 1,000 ML IV SCH (03:44)
[2017-12-09] MEDS: ALBUTEROL/IPRATROPIUM 2.5mg-0.5mg/3ml NEB AEROSOL SCH ×6 (04:11→23:07)
[2017-12-09] MEDS: HYDROCODONE/APAP 5mg/325mg TABLET PO PRN (08:00)
[2017-12-09] MEDS: NICOTINE PATCH REMOVAL TD SCH (09:14)
[2017-12-09] MEDS: NICOTINE 21 MG PATCH TD SCH (09:14)
[2017-12-09] MEDS: SALINE 0.65% NASAL SPRAY 44 ML BOTTLE EA NOSTRIL SCH ×4 (09:14→21:27)
[2017-12-09] MEDS ORDERED: NS FLUSH BAG 500ml IV PRN (10:36)
[2017-12-09] MEDS ORDERED: DiphenhydrAMINE 25 MG CAPSULE PO ONE (10:36)
--- NOTE | 2017-12-09 10:49 | Pulmonology Progress Note ---
Subjective Principal diagnosis: pneumonia Interval history: Pt sitting up in the bed. States his breathing is doing ok. No real SOB at this time, + cough with sputum, on O2 at 2L. Exam Vital signs: Temperature 98.0 F 12/09/17 03:30 Pulse Rate 112 H 12/09/17 07:00 Respiratory Rate 22 12/09/17 07:06 Blood Pressure 111/75 12/09/17 07:00 Pulse Oximetry 91 12/09/17 07:06 Inpatient Medications: Generic Name Dose Route Start Last Admin Trade Name Freq PRN Reason Stop Dose Admin Hydrocodone Bitart/Acetaminophen 1 tab 12/07/17 11:21 12/09/17 08:00 [place] 5/325 PO 1 tab QID PRN Administration Pain Albuterol/Ipratropium 3 ml 12/07/17 16:00 12/09/17 07:06 Duoneb AEROSOL 3 ml Q4HR RANDALL Administration Benzonatate 100 mg 12/07/17 12:48 Tessalon Perles PO TID PRN Cough Bisacodyl 10 mg 12/07/17 12:53 Dulcolax RECTALLY DAILY PRN Constipation Clotrimazole 10 mg 12/09/17 12:00 Mycelex Pj MM 5XD RANDALL Fluticasone Propionate 1 spray 12/07/17 11:25 Flonase EA NOSTRIL DAILY PRN PRN orders Cefepime HCl 1 gm/ Sodium 50 mls @ 100 mls/hr 12/07/17 16:00 12/09/17 09:53 Chloride IV 100 mls/hr Q6H RANDALL Administration Levofloxacin/Dextrose 750 mg in 150 mls @ 100 mls/hr 12/07/17 11:21 12/08/17 12:30 Levaquin Premix IV Infused Q24H RANDALL Infusion Vancomycin HCl 1,250 mg/ 250 mls @ 200 mls/hr 12/08/17 02:00 12/09/17 02:30 Sodium Chloride IV Infused Q12H RANDALL Infusion Potassium Chloride 20 meq/ 1,014.5455 mls @ 75 mls/hr 12/08/17 09:45 07:00 Potassium Phosphate 20 meq/ IV 75 mls/hr Sodium Chloride .[id number] RANDALL Infusion Lorazepam 0.25 mg 12/07/17 12:48 Ativan Inj IVP Q4H PRN Air hunger/Anxiety Magnesium Hydroxide 30 ml 12/07/17 12:53 Mom PO DAILY PRN Constipation Morphine Sulfate 2 mg 12/07/17 12:47 12/07/17 22:07 Morphine Sulfate Inj IVP 1 mg Q2HR PRN Administration Pain Nicotine 21 mg 12/07/17 10:45 12/09/17 09:14 Nicoderm TD 21 mg DAILY RANDALL Administration Nicotine 1 removal 12/08/17 09:00 12/09/17 09:14 Nicotine Patch Removal TD 1 removal DAILY RANDALL Administration Ondansetron HCl 4 mg 12/07/17 11:21 Zofran IVP Q6H PRN Nausea Promethazine HCl/Codeine 5 ml 12/07/17 12:49 Phenergan + Codeine PO Q6HR PRN Cough Sodium Chloride 10 - 80 ml 12/07/17 08:43 12/08/17 13:37 Iv Flush IVF 40 ml PRN PRN Administration [place] Sodium Chloride 500 ml 12/07/17 11:24 12/08/17 21:28 Normal Saline IV 500 ml PRN PRN Administration Sodium Chloride 2 spray 12/08/17 10:15 12/09/17 09:14 [place] Nasal Moisturizing [place] EA NOSTRIL 2 spray QID RANDALL Administration Sodium Chloride 500 ml 12/09/17 10:36 Normal Saline IV PRN PRN Discontinued Medications Generic Name Dose Route Start Last Admin Trade Name Freq PRN Reason Stop Dose Admin Albuterol/Ipratropium 3 ml 12/07/17 11:00 12/07/17 16:44 Duoneb AEROSOL Not Given RTQID RANDALL Diphenhydramine HCl 50 mg 12/09/17 10:36 Benadryl PO 12/09/17 10:37 ONCE ONE Cefepime HCl 1 gm/ Sodium 100 mls @ 200 mls/hr 12/07/17 08:43 12/07/17 09:33 Chloride IV 12/07/17 09:12 Infused O ONE Infusion Sodium Chloride 1,000 mls @ 1,000 mls/hr 12/07/17 08:43 12/07/17 10:08 Normal Saline IV 12/07/17 09:42 Infused .Q1H ONE Infusion Sodium Chloride 1,000 mls @ 999.9 mls/hr 12/07/17 09:13 12/07/17 11:38 Normal Saline IV 12/07/17 10:12 Infused .Q1H ONE Infusion Sodium Chloride 1,000 mls @ 125 mls/hr 12/07/17 11:21 12/08/17 10:31 Normal Saline IV Infused .Q8H RANDALL Infusion Vancomycin HCl 1,750 mg/ 500 mls @ 250 mls/hr 12/07/17 14:00 12/07/17 15:00 Sodium Chloride IV 12/07/17 14:01 Infused O ONE Infusion Sodium Chloride 500 mls @ 500 mls/hr 12/08/17 03:40 12/08/17 03:40 Normal Saline IV 12/08/17 04:39 Not Given .Q1H ONE Sodium Chloride 500 mls @ 500 mls/hr 12/08/17 05:30 12/08/17 05:17 Normal Saline IV 12/08/17 06:30 Not Given .Q1H RANDALL Vancomycin HCl 1 each 12/07/17 11:09 Pharmacy Consult - Vancomycin 12/07/17 11:10 O ONE Vancomycin HCl 1 each 12/07/17 11:21 Pharmacy Consult - Vancomycin 12/07/17 11:22 O ONE - Constitutional no acute distress, thin, cooperative - Routine HEENT Exam Head: Present: normocephalic, atraumatic Eye: Present: EOMI, PERRL ENT: Present: mucous membranes moist - Routine Neck Exam Present: supple, full ROM, trachea midline - Routine Respiratory Exam Present: decreased breath sounds, crackles. Absent: accessory muscle use, patient mechanically ventilated - Routine Cardiovascular Exam Present: RRR, S1, S2, no murmur - Routine Abdominal Exam Present: soft, normoactive bowel sounds - Routine Extremities Exam Present: no edema, non tender - Routine Skin Exam Present: intact, dry - Routine Neurological Exam Present: alert, oriented X3, CN II-XII intact - Routine Psychiatric Exam Present: normal affect, normal thought process - Urinary Catheter Management Urethral Cath placed during this visit: yes Reason for continuing: Prolonged Immobilization Insertion date: 12/07/17 Insertion time: 19:45 Results - Laboratory Findings Laboratory: Laboratory Results - last 48 hr 12/07/17 12/07/17 12/07/17 11:24 12:57 18:13 WBC RBC Hgb Hct MCV MCH MCHC RDW Std Deviation Plt Count MPV Immature Gran % (Auto) Neut % (Auto) Lymph % (Auto) [place] % (Auto) Eos % (Auto) Baso % (Auto) Neut # (Auto) Lymph # (Auto) [place] # (Auto) Eos # (Auto) Baso # (Auto) Abs Immat Gran (auto) Neutrophils % (Manual) Band Neutrophils % Lymphocytes % (Manual) Monocytes % (Manual) Metamyelocytes % Myelocytes % Neutrophils # (Manual) Band Neutrophils # Lymphocytes # (Manual) Monocytes # (Manual) Metamyelocytes # Myelocytes # Nucleated RBCs Polychromasia Anisocytosis Macrocytosis Tear Drop Cells Helmet Cells Schistocytes RBC Morph Comment Turbidity Sodium Potassium Chloride Carbon Dioxide Anion Gap BUN Creatinine GFR Calculation BUN/Creatinine Ratio Glucose Calculated Osmolality Calcium Phosphorus Magnesium Total Bilirubin Icterus Index AST ALT Alkaline Phosphatase Total Protein Albumin Globulin Albumin/Globulin Ratio Prealbumin < 3.0 L Plasma Lactate 2.1 Procalcitonin Specimen Hemolysis Ur Collection Type Urine, void-cc/notcc Urine Color Yellow Urine Clarity Sl cloudy Urine pH 5.5 Ur Specific [place] 1.025 Urine Protein Trace A Urine Glucose (UA) Negative Urine Ketones Trace A Urine Occult Blood Trace-intact Urine Nitrate Negative Urine Bilirubin 1+ A Urine Urobilinogen 1.0 Ur Leukocyte Esterase Negative Urinalysis Comment Microscopic not ind. Blood Product Request 1 unit ppp issued 12/07/17 12/08/17 12/08/17 18:34 04:28 04:28 WBC 2.4 L RBC 1.80 L Hgb 6.7 L D Hct 18.9 L D MCV 105.0 H MCH 37.2 H MCHC 35.4 RDW Std Deviation 57.3 H Plt Count 28 L* D 30 L MPV 11.4 Immature Gran % (Auto) Not performed Neut % (Auto) Not performed Lymph % (Auto) Not performed [place] % (Auto) Not performed Eos % (Auto) Not performed Baso % (Auto) Not performed Neut # (Auto) Not performed Lymph # (Auto) Not performed [place] # (Auto) Not performed Eos # (Auto) Not performed Baso # (Auto) Not performed Abs Immat Gran (auto) Not performed Neutrophils % (Manual) 70.0 H Band Neutrophils % 6.0 Lymphocytes % (Manual) 11.0 L Monocytes % (Manual) 13.0 H Metamyelocytes % Myelocytes % Neutrophils # (Manual) 1.7 L Band Neutrophils # 0.1 Lymphocytes # (Manual) 0.3 L Monocytes # (Manual) 0.3 Metamyelocytes # Myelocytes # Nucleated RBCs 1 Polychromasia 1+ Anisocytosis 1+ Macrocytosis 1+ Tear Drop Cells 1+ Helmet Cells 1+ Schistocytes 1+ RBC Morph Comment Abnormal Turbidity < 20 Sodium 128 L Potassium 3.7 D Chloride 98 D Carbon Dioxide 22 Anion Gap 8 BUN 17.0 Creatinine 0.6 L D GFR Calculation 139 BUN/Creatinine Ratio 28 H Glucose 105 Calculated Osmolality 249 L Calcium 9.8 Phosphorus Magnesium 1.9 Total Bilirubin 1.40 H Icterus Index < 2 AST 63 H D ALT 53 Alkaline Phosphatase 349 H D Total Protein 4.9 L Albumin 2.1 L Globulin 2.8 Albumin/Globulin Ratio 0.8 L Prealbumin Plasma Lactate Procalcitonin Specimen Hemolysis < 15 Ur Collection Type Urine Color Urine Clarity Urine pH Ur Specific [place] Urine Protein Urine Glucose (UA) Urine Ketones Urine Occult Blood Urine Nitrate Urine Bilirubin Urine Urobilinogen Ur Leukocyte Esterase Urinalysis Comment Blood Product Request 12/08/17 12/08/17 12/08/17 04:28 07:54 11:38 WBC RBC Hgb 8.7 L D Hct MCV MCH MCHC RDW Std Deviation Plt Count MPV Immature Gran % (Auto) Neut % (Auto) Lymph % (Auto) [place] % (Auto) Eos % (Auto) Baso % (Auto) Neut # (Auto) Lymph # (Auto) [place] # (Auto) Eos # (Auto) Baso # (Auto) Abs Immat Gran (auto) Neutrophils % (Manual) Band Neutrophils % Lymphocytes % (Manual) Monocytes % (Manual) Metamyelocytes % Myelocytes % Neutrophils # (Manual) Band Neutrophils # Lymphocytes # (Manual) Monocytes # (Manual) Metamyelocytes # Myelocytes # Nucleated RBCs Polychromasia Anisocytosis Macrocytosis Tear Drop Cells Helmet Cells Schistocytes RBC Morph Comment Turbidity Sodium Potassium Chloride Carbon Dioxide Anion Gap BUN Creatinine GFR Calculation BUN/Creatinine Ratio Glucose Calculated Osmolality Calcium Phosphorus Magnesium Total Bilirubin Icterus Index AST ALT Alkaline Phosphatase Total Protein Albumin Globulin Albumin/Globulin Ratio Prealbumin Plasma Lactate Procalcitonin 11.91 H* Specimen Hemolysis Ur Collection Type Urine Color Urine Clarity Urine pH Ur Specific [place] Urine Protein Urine Glucose (UA) Urine Ketones Urine Occult Blood Urine Nitrate Urine Bilirubin Urine Urobilinogen Ur Leukocyte Esterase Urinalysis Comment Blood Product Request 1 unit pc issued 12/09/17 12/09/17 12/09/17 04:50 04:50 04:50 WBC 3.7 L D RBC 2.39 L Hgb 8.2 L Hct 23.4 L D MCV 97.9 MCH 34.3 H MCHC 35.0 RDW Std Deviation 72.3 H Plt Count 19 L* D MPV 10.0 Immature Gran % (Auto) Not performed Neut % (Auto) Not performed Lymph % (Auto) Not performed [place] % (Auto) Not performed Eos % (Auto) Not performed Baso % (Auto) Not performed Neut # (Auto) Not performed Lymph # (Auto) Not performed [place] # (Auto) Not performed Eos # (Auto) Not performed Baso # (Auto) Not performed Abs Immat Gran (auto) Not performed Neutrophils % (Manual) 72.0 H Band Neutrophils % 15.0 H Lymphocytes % (Manual) 10.0 L Monocytes % (Manual) 1.0 Metamyelocytes % 1.0 H Myelocytes % 1.0 H Neutrophils # (Manual) 2.7 Band Neutrophils # 0.6 Lymphocytes # (Manual) 0.4 L Monocytes # (Manual) 0.0 Metamyelocytes # 0.0 Myelocytes # 0.0 Nucleated RBCs Polychromasia Anisocytosis 1+ Macrocytosis Tear Drop Cells Helmet Cells Schistocytes RBC Morph Comment Abnormal Turbidity < 20 Sodium 134 D Potassium 4.2 Chloride 104 D Carbon Dioxide 20 L Anion Gap 10 BUN 15.0 Creatinine 0.6 L GFR Calculation 139 BUN/Creatinine Ratio 25 Glucose 115 H Calculated Osmolality 260 L Calcium 10.6 H D Phosphorus 4.3 Magnesium 2.0 Total Bilirubin 1.50 H Icterus Index < 2 AST 128 H D ALT 65 Alkaline Phosphatase 469 H D Total Protein 5.0 L Albumin 2.2 L Globulin 2.8 Albumin/Globulin Ratio 0.8 L Prealbumin Plasma Lactate Procalcitonin 7.64 H* Specimen Hemolysis < 15 Ur Collection Type Urine Color Urine Clarity Urine pH Ur Specific [place] Urine Protein Urine Glucose (UA) Urine Ketones Urine Occult Blood Urine Nitrate Urine Bilirubin Urine Urobilinogen Ur Leukocyte Esterase Urinalysis Comment Blood Product Request Assessment and Plan - Assessment and Plan Acute Hypoxic Respiratory Failure Sepsis RUL pneumonia RA/Immune compromised Pancytopenia - likely 2/2 sepsis Likely COPD Tobaccoism Hyponatremia - improved Plan: Pt currently on O2 at 2L per NC and saad well, keep O2 to keep sats 90-95%. On A/ A q4hr with acapella. Highly encourage smoking cessation. Last CXR cont to show RUL infiltrates, WBC low 3.7, bands 15, procal 12.9>7.64. On cefepime, levaquin and vanco, temp max 99.3. Cont to hold Imuran and Enbrel. BC NTD, sputum showing early growth, strep/leg urine antigen negative, cont to follow cx's and CXR. - Time Spent With Patient Total time spent is greater than 50% in coordination of care (as documented) at patient's floor/unit and/or counseling patient: less than 15 minutes
[2017-12-09] MEDS: LEVOFLOXACIN PB 750 MG/150 ML BAG IV SCH (10:54)
[2017-12-09] MEDS ORDERED: POTASSIUM CHLORIDE INJ 20 MEQ, POTASSIUM PHOSPHATE (mEq) 20 MEQ in NS 1,000 ML IV SCH (11:00)
--- NOTE | 2017-12-09 11:12 | Progress Note ---
- Date 12/09/17 Subjective: F/U: Septic shock, pneumonia Breathing still short, congested, and with cough. Hard to mobilize sputum. Chest sore from cough. Some nasal congestion. Mouth dry and sore. Appetite with slight increase. Speech saw and changed diet to pureed as it takes so long for him to chew. Speech reports he is swallowing better. Stools slow. Very weak in general. Objective Vital signs: Temperature 98.0 F 12/09/17 03:30 Pulse Rate 112 H 12/09/17 07:00 Respiratory Rate 22 12/09/17 07:06 Blood Pressure 111/75 12/09/17 07:00 Pulse Oximetry 91 12/09/17 07:06 Height/Weight/BMI: Height 1.7 m Weight 68.3 kg Body Mass Index 21.4 - Constitutional Present: moderate distress, well nourished, well developed, average body habitus , cooperative. Absent: combative, agitated - Routine HEENT Exam Head: Present: normocephalic, atraumatic Eye: Present: EOMI, PERRL ENT: Present: mucous membranes dry - Routine Respiratory Exam Present: decreased breath sounds, rales, rhonchi, distant breath sounds, diminished air movement - Routine Cardiovascular Exam Present: no murmur, tachycardia - Routine Abdominal Exam Present: soft, non distended, non tender. Absent: normoactive bowel sounds ( decreased ) - Routine Exam Comments: Rivas present - Routine Extremities Exam Present: pulses intact. Absent: cyanosis, clubbing - Routine Musculoskeletal Exam Musculoskeletal: Present: no clubbing or cyanosis - Routine Skin Exam Present: dry, warm - Routine Neurological Exam Present: alert, oriented X3, CN II-XII intact, moving all extremities, normal speech. Absent: altered mental status - Routine Psychiatric Exam Present: normal affect, normal thought process, cooperative Results - Labs CBC & Chem 7: 12/09/17 04:50 12/09/17 04:50 Microbiology Results: Microbiology 12/07/17 18:13 Urine Legionella Urinary Antigen - Final 12/07/17 18:13 Urine Streptococcus pneumoniae Antigen (M - Final 12/07/17 12:45 Sputum, Expectorated Gram Stain - Final 12/07/17 12:45 Sputum, Expectorated Sputum Culture - Preliminary Early growth Assessment and Plan (1) Septic shock Current visit: Yes Status: Acute (2) Pneumonia Current visit: Yes Status: Acute Assessment and Plan: IMPRESSION Sepsis secondary to Right sided pneumonia Septic shock based on lactate of 4.5 (per CMS) Severe sepsis based on 2016 Surviving Sepsis Guidelines Organ dysfunction = MAP <70, hyperbilirubinemia (2.4), thrombocytopenia ( 16) SOFA on admission = 7, presumed baseline of 0 Pneumonia Hypoxia Acute on chronic Hyponatremia (POA) (baseline 131-134) Pancytopenia (POA) including platelet count of 16 and hgb of 8.9 Hyperbilirubinemia, elevated AST and Alk phos, POA Hypercalcemia (POA) Elevated CRP and procalcitonin, secondary to acute infection Severe PCM - prealbumin undetectable Thrush. Macrocytic anemia Rheumatoid arthritis Immunocompromised Chronic antritis Tobacco dependency PLAN Continue with levofloxacin, cefepime and vancomycin for pulmonary coverage. Neb treatments and acapella to continue. Monitor saturations and work of breathing - on 2L currently. Start Mycelex lola for thrush. Speech check recommends pureed diet as very difficult to chew foods - may need to upgrade is not liking pureed consistency. Platelets decreased to 20K. Monitor. Give platelet pack. Sodium improvement to 134, with potassium and phos normal at 4.2 and 4.3 respectively. Continue IVF to NS with 20KCl and 20KPhos but decrease rate to 50cc/hr. BP improved. HR still in 115 range. Start Bladder retraining - possible discontinue Rivas in near future. Start Miralax daily to help bowel function - hold with loose stool. PT/OT consult to help improve strength. Recheck CMP, Mg, Phos, Procalcitonin, and CBC secondary to resolving septic shock. Recheck CXR in am. Can transfer to medical floor for continuation of care. Case discussed with CCU nursing. Time spent with patient care 25 minutes. DVT Prophylaxis: SCD's Resuscitation Status: Full Code - Time spent with patient Time with patient PN: 25 minutes - Physician Narrative Physician: Wesley Vivar MD Narrative: Date: 12/09/17 Time: 1109 Hospital Course Summary Disclaimer: The visit summary below is not to be considered part of the above Progress Note. Hospital Course: 12/07/17 Admit, inpatient status, to CCU; Patient is critically ill. Dr. Vivar attending. Septic shock based on CMS and Severe Sepsis based on Surviving Sepsis He received full 30 mL/kg bolus in ED. If unable to keep MAP >65, will need to start norepinephrine, which would indicate shock based on 2016 rec. Initial lactate was 4.5; if lactate is still elevated >4 on recheck, this would also indicate shock based on 2016 recommendations. Blood cultures already drawn. Repeat physical exam done. Repeat procalcitonin in am. Sinus tachycardia has improved after fluid boluses, from 138-105. Right sided pneumonia in an immunocompromised patient with significant smoking history. Cefepime was started in the ED -- will continue with this and add vancomycin and levofloxacin d/t immunocompromised state. Check for strep pneumo and legionella. Check sputum culture. Consult Dr. Mckinney; suspect he may require additional respiratory intervention and with smoking hx likely has underlying COPD. Acapella, JameeloNeb. Ask RT to provide tobacco cessation information. Nicotine patch ordered. Hold RA medications including Enbrel & Imuran. Pancytopenia Suspect d/t sepsis. If no improvement in next few days consider heme consultation. Platelets only 16 on admission. Will give platelet pack x1. Lovenox is contraindicated. SCD for DVT prevention. Macrocytic anemia - check iron studies, folate, vitamin B12. Hyperbilirubinemia Suspect d/t sepsis. Hepatomegaly and RUQ tenderness. He had liver sonogram in Aug, 2017 which was normal. Check INR. Hyponatremia and hypercalcemia Suspect d/t dehydration. Continue IVF and check in am. Advanced directives None. Requests full resuscitation. 12/08/17 Continue with levofloxacin, cefepime and vancomycin for pulmonary coverage. Neb treatments and acapella to continue. Monitor saturations and work of breathing - on 2L currently. Will have speech check swallow secondary to coughing with swallow. Hemoglobin decreased to 6.7 - transfusion initiated. Iron/B12/Folate tests pending. Platelets increased to 30K. Monitor. No Lovenox due to thrombocytopenia. Sodium with slight improvement to 128, but potassium decreased to 3.7. Will change IVF to NS with 20KCl and 20KPhos and decrease rate to 75cc/hr. BP improved. Recheck CMP, Mg, Phos, Procalcitonin, and CBC secondary to resolving septic shock. Continues to need close nursing care and support, continue CCU monitoring. 12/09/17 Continue with levofloxacin, cefepime and vancomycin for pulmonary coverage. Neb treatments and acapella to continue. Monitor saturations and work of breathing - on 2L currently. Start Mycelex lola for thrush. Speech check recommends pureed diet as very difficult to chew foods - may need to upgrade is not liking pureed consistency. Platelets decreased to 20K. Monitor. Give platelet pack. Hemoglobin improved to 8.2 post transfusion yesterday. Sodium improvement to 134, with potassium and phos normal at 4.2 and 4.3 respectively. Continue IVF to NS with 20KCl and 20KPhos but decrease rate to 50cc/hr. BP improved. HR still in 115 range. Start Bladder retraining - possible discontinue Rivas in near future. Start Miralax daily to help bowel function - hold with loose stool. PT/OT consult to help improve strength. Can transfer to medical floor for continuation of care.
[2017-12-09] MEDS: POLYETHYL GLYCOL 3350 17gm PACKET PO SCH (11:17)
[2017-12-09] MEDS: CLOTRIMAZOLE 10 MG TROCHE MM SCH ×3 (13:06→18:38)
--- NOTE | 2017-12-09 14:29 | Pharmacy Consult-Antibiotics ---
Pharmacy Consult-Vancomycin - Laboratory Information WBC 3.7 T/MM3 (4.5-11.0) L D 12/09/17 04:50 BUN 15.0 MG/DL (9-20) 12/09/17 04:50 Creatinine 0.6 MG/DL (0.8-1.5) L 12/09/17 04:50 Procalcitonin 7.64 NG/ML H* 12/09/17 04:50 Vancomycin Trough 13.73 UG/ML (15-20) L 12/09/17 13:03 - Consult Information VANCOMYCIN CONSULT: Day 3 57 y.o. Male admitted with symptoms of shortness of air, lightheadedness, body aches, hypotensive. Chest x-ray report notes probable pneumonia involving the upper right lobe. Cefepime, Levofloxacin and Vancomycin were initiated for empiric coverage of sepsis. Vancomycin trough: 13.73 mcg/mL S Cr = 0.6 mg/dL Cr Cl = 130 Ml/MIN Will change the Vancomycin to 1,750 mg IV IV Q12h. The model indicates a vancomycin trough of around 17.00 mcg/mL. The pharmacy will continue monitor the renal function and the vancomycin troughs and the will adjust the vancomycin as needed. Thank you for the Vanco dosing consult, Jakub Carlisle, Pharmacist.
[2017-12-09] MEDS: SALINE FLUSH 10ml SYRINGE IVF PRN (21:26)
[2017-12-09] MEDS: NS FLUSH BAG 500ml IV PRN (21:27)
[2017-12-10] MEDS: SALINE FLUSH 10ml SYRINGE IVF PRN ×3 (00:20→05:33)
[2017-12-10] MEDS: CLOTRIMAZOLE 10 MG TROCHE MM SCH ×6 (00:20→22:23)
[2017-12-10] MEDS: ALBUTEROL/IPRATROPIUM 2.5mg-0.5mg/3ml NEB AEROSOL SCH ×5 (03:26→21:30)
[2017-12-10] MEDS: CEFEPIME 1 GM in NS 50 ML IV SCH ×4 (03:54→22:23)
[2017-12-10] MEDS: SALINE 0.65% NASAL SPRAY 44 ML BOTTLE EA NOSTRIL SCH ×4 (09:06→22:22)
[2017-12-10] MEDS: NICOTINE 21 MG PATCH TD SCH (09:07)
[2017-12-10] MEDS: NICOTINE PATCH REMOVAL TD SCH (09:08)
[2017-12-10] MEDS: POLYETHYL GLYCOL 3350 17gm PACKET PO SCH (09:08)
--- NOTE | 2017-12-10 09:11 | XRay Report ---
Indication: pna PROCEDURE: XR chest 1V: Encounter: Initial Comparison: December 08, 2017 Findings: Right PICC line remains in place. Worsening airspace consolidation in the right lower lobe with stable severe airspace disease in the right upper lobe. Left lung appears stable and grossly clear. No significant pleural effusion. No pneumothorax. Heart size and mediastinal contours are stable. Pulmonary vascularity is unchanged. Impression: Worsening airspace disease in the right lung base. .
--- NOTE | 2017-12-10 10:02 | Progress Note ---
- Date 12/10/17 Subjective: I was called by the nurse earlier this morning and notified that the patient had become confused last night and they were having trouble getting him to keep his oxygen on. He was becoming hypoxic at times and tachycardic with heart rate up into the 130s. He also pulled out his IV. When I came to see him they had cleaned him up and placed a new IV. When he was on oxygen his tachycardia improved with heart rate down to 110, but when I came in the room his nasal cannula was pointed down towards his mouth and his O2 sat was 75% with heart rate in the 130s. I did reposition his nasal cannula and on 4 L his oxygen saturation did go back up to 90%. Heart rate was in the 130s and improved into the 120s. The patient admits that he is confused but is oriented to place, time and situation, but also states he needs to be going home soon and asks if his dog is outside the window because he thinks he has seen his dog. He currently denies any pain. He has a Rivas catheter in place. He is requesting something to drink. Objective Vital signs: Temperature 99.4 F 12/10/17 04:00 Pulse Rate 119 H 12/10/17 08:39 Respiratory Rate 20 12/10/17 08:39 Blood Pressure 132/81 12/10/17 08:39 Pulse Oximetry 94 12/10/17 08:39 Height/Weight/BMI: Height 1.7 m Weight 70.7 kg Body Mass Index 21.4 Comments: Temp is 99 4, heart rate up to 139, blood pressure 138/67, O2 sat 92% on 4 L, respirations 28 Weight is up 9 kg. I&O is +9 L GEN-alert, oriented to [facility], 12/09/2017, self. Does appear confused. HEENT-sclera anicteric, oropharynx is moist, tongue has patchy white spots NECK-supple CV-tachycardic rate with irregular rhythm CHEST-coarse breath sounds bilaterally ABD-soft, nontender with positive bowel sounds -Rivas in place with good urine output EXT-2+ pedal edema NEURO-no focal deficits SKIN-warm and dry Results - Labs CBC & Chem 7: 12/10/17 04:00 12/10/17 04:00 Labs: Calcium is elevated at 10.6 and albumin is low at 2.2 Phosphorus is 4.4 Magnesium is 1.9 ANC is 2.2 Microbiology Results: Microbiology 12/07/17 12:45 Sputum, Expectorated Gram Stain - Final 12/07/17 12:45 Sputum, Expectorated Sputum Culture - Preliminary Pseudomonas aeruginosa 12/07/17 18:13 Urine Legionella Urinary Antigen - Final 12/07/17 18:13 Urine Streptococcus pneumoniae Antigen (M - Final - Impressions Chest x-ray shows stable right upper lobe infiltrate, worsening right lower lobe infiltrate, and no change in pulmonary vascularity. I have viewed the films myself and agree Assessment and Plan (1) Septic shock Current visit: Yes Status: Acute (2) Pneumonia Current visit: Yes Status: Acute Assessment and Plan: IMPRESSION Sepsis secondary to Right sided pneumonia Septic shock based on lactate of 4.5 (per CMS) Severe sepsis based on 2016 Surviving Sepsis Guidelines Organ dysfunction = MAP <70, hyperbilirubinemia (2.4), thrombocytopenia ( 16) SOFA on admission = 7, presumed baseline of 0 Pneumonia -right upper lobe and right lower lobe Acute Hypoxia -worsening on 12/10/2017 requiring 4 L Acute on chronic Hyponatremia (POA) (baseline 131-134) Pancytopenia (POA) including platelet count of 16 and hgb of 8.9 Hyperbilirubinemia, elevated AST and Alk phos, POA Hypercalcemia (POA) Hypoalbuminemia Elevated CRP and procalcitonin, secondary to acute infection Severe PCM - prealbumin undetectable Thrush. Macrocytic anemia Rheumatoid arthritis Immunocompromised Chronic antritis Tobacco dependency Encephalopathy-normal on 12/10/2017 Tachycardia with questionable atrial flutter on EKG on admission PLAN The patient became confused last night and was pulling off his oxygen and pulled out his IV. He is more calm at this time but is still confused. With his severity of illness, will transfer back to intensive care when a bed is open. In the meantime will have his nurse stay close to his room and obtain continuous oximetry. Dr. Galarza was called and consulted regarding his pancytopenia. We'll check PTH regarding hypercalcemia. His hypercalcemia is likely worse than it appears since he also has hypoalbuminemia. Hold IV fluids for now. He is 9 L up on fluids. May require diuresis. Continue Rivas catheter for now. Check ammonia level regarding altered mental status. Repeat CBC and CMP tomorrow. Continue with levofloxacin, cefepime and vancomycin for pneumonia with immunosuppression. Neb treatments and acapella to continue. Monitor saturations and work of breathing - now requiring 4 L PT/OT consult. Repeat EKG Greater than 40 minutes of critical care time spent seeing and evaluating the patient today. While waiting for an ICU bed, we'll move the patient close to the nurses station and have a sitter. DVT Prophylaxis: SCD's Resuscitation Status: Full Code - Physician Narrative Narrative: Date: 12/10/17 Time: 0959 Hospital Course Summary Disclaimer: The visit summary below is not to be considered part of the above Progress Note. Hospital Course: 12/07/17 Admit, inpatient status, to CCU; Patient is critically ill. Dr. Vivar attending. Septic shock based on CMS and Severe Sepsis based on Surviving Sepsis He received full 30 mL/kg bolus in ED. If unable to keep MAP >65, will need to start norepinephrine, which would indicate shock based on 2016 rec. Initial lactate was 4.5; if lactate is still elevated >4 on recheck, this would also indicate shock based on 2016 recommendations. Blood cultures already drawn. Repeat physical exam done. Repeat procalcitonin in am. Sinus tachycardia has improved after fluid boluses, from 138-105. Right sided pneumonia in an immunocompromised patient with significant smoking history. Cefepime was started in the ED -- will continue with this and add vancomycin and levofloxacin d/t immunocompromised state. Check for strep pneumo and legionella. Check sputum culture. Consult Dr. Mckinney; suspect he may require additional respiratory intervention and with smoking hx likely has underlying COPD. Acapella, DuoNeb. Ask RT to provide tobacco cessation information. Nicotine patch ordered. Hold RA medications including Enbrel & Imuran. Pancytopenia Suspect d/t sepsis. If no improvement in next few days consider heme consultation. Platelets only 16 on admission. Will give platelet pack x1. Lovenox is contraindicated. SCD for DVT prevention. Macrocytic anemia - check iron studies, folate, vitamin B12. Hyperbilirubinemia Suspect d/t sepsis. Hepatomegaly and RUQ tenderness. He had liver sonogram in Aug, 2017 which was normal. Check INR. Hyponatremia and hypercalcemia Suspect d/t dehydration. Continue IVF and check in am. Advanced directives None. Requests full resuscitation. 12/08/17 Continue with levofloxacin, cefepime and vancomycin for pulmonary coverage. Neb treatments and acapella to continue. Monitor saturations and work of breathing - on 2L currently. Will have speech check swallow secondary to coughing with swallow. Hemoglobin decreased to 6.7 - transfusion initiated. Iron/B12/Folate tests pending. Platelets increased to 30K. Monitor. No Lovenox due to thrombocytopenia. Sodium with slight improvement to 128, but potassium decreased to 3.7. Will change IVF to NS with 20KCl and 20KPhos and decrease rate to 75cc/hr. BP improved. Recheck CMP, Mg, Phos, Procalcitonin, and CBC secondary to resolving septic shock. Continues to need close nursing care and support, continue CCU monitoring. 12/09/17 Continue with levofloxacin, cefepime and vancomycin for pulmonary coverage. Neb treatments and acapella to continue. Monitor saturations and work of breathing - on 2L currently. Start Mycelex lola for thrush. Speech check recommends pureed diet as very difficult to chew foods - may need to upgrade is not liking pureed consistency. Platelets decreased to 20K. Monitor. Give platelet pack. Hemoglobin improved to 8.2 post transfusion yesterday. Sodium improvement to 134, with potassium and phos normal at 4.2 and 4.3 respectively. Continue IVF to NS with 20KCl and 20KPhos but decrease rate to 50cc/hr. BP improved. HR still in 115 range. Start Bladder retraining - possible discontinue Rivas in near future. Start Miralax daily to help bowel function - hold with loose stool. PT/OT consult to help improve strength. Can transfer to medical floor for continuation of care.
[2017-12-10] MEDS: MORPHINE SULFATE 2mg INJECTION IVP PRN ×2 (11:14→17:55)
[2017-12-10] MEDS: LEVOFLOXACIN PB 750 MG/150 ML BAG IV SCH (11:19)
--- NOTE | 2017-12-10 14:25 | Consult Note ---
<Sharifa Duarte - Last Filed: 12/10/17 14:13> Oncology HPI - Data of Consult Patient: new to practice Consult date: 12/10/17 Requesting Physician: Didi Jolly MD Primary Care Provider: Jair Danielle MD Family Provider: Jair Danielle MD - Consult Narrative Reason for consult: pancytopenia History of present illness: 57-year-old male, seen as new patient by Dr. Galarza was admitted through [facility] emergency room with acute weakness, fatigue and shortness of breath. He was seen by his primary care provider in the office day of admit and recommended he present to the emergency room secondary to hypotension. He was noted to be in septic shock with a lactate of 4.5, pro calcitonin elevated at 12.91, CRP 570. Chest x-ray revealed right-sided pneumonia. He is being followed by pulmonology for pneumonia, likely COPD. Was noted to be pancytopenic on admission, initially felt likely to sepsis. He was given 1 unit platelets. Pancytopenia has persisted/ not improved. Has a 20 year history of rheumatoid arthritis, is followed by Dr. Hetal Jolly, and takes Enbrel. At time of intake, reclining in hospital bed. He is alert and oriented to person/place. Answers questions appropriately; knows his name, 's name, and that he is in the hospital. Had acute confusion during the night and removed his IV and oxygen. c/o lower back pain, SOA, cough, and weakness. Unknown weight loss past 6 months , states decreased appetite. Review of Systems - Constitutional Constitutional: Present: fatigue, malaise, weight loss - EENT Mouth/Throat: Absent: painful swallowing - Cardiovascular Cardiovascular: Present: chest pain, dyspnea on exertion - Respiratory Respiratory: Present: cough, dyspnea - Gastrointestinal Gastrointestinal: Present: early satiety. Absent: abdominal pain - Musculoskeletal Musculoskeletal: Present: muscle weakness - Neurological Neurological: Present: confusion (acute confusion) - Hematologic/Lymphatic Hematologic/Lymphatic: Present: easy bleeding (denies epistatxis, but some bloody nasal mucous) [facility] Patient Stated Medical History Dental Problems Yes: poor fitting dentures Other HEENT Yes: a lot of sore throats Hypotension Yes: with sepsis 11/2017 Pneumonia Yes Other Respiratory Yes: 40 pk/yr hx. started smoking 1978 Gastrointestinal Bleeding Yes: current Hx Renal Disease No Clotting Problems Yes: thrombocytopenia Other Musculoskeletal Yes: RA Shingles Yes Medical History Updates: Rheumatoid arthritis. History of alcohol Surgical History: Cyst removed from the left side of his neck - Social History Smoking status: Current every day smoker Packs per day: 2 Household members: spouse, children (grandchild) Current residence: Apartment/Private Home Medications Home Medications Medication Instructions Recorded Confirmed Type Cholecalciferol (Vitamin D3) 400 unit PO DAILY #0 03/04/16 12/07/17 History [Vitamin D3] Etanercept [Enbrel Sureclick] 50 mg SQ WEEKLY #392 03/04/16 12/07/17 History Diclofenac [Voltaren] 1 applicatio TOP BID PRN 12/07/17 12/07/17 History Fluticasone Nasal [place] [Flonase] 1 spray EA NOSTRIL DAILY PRN 12/07/17 History Hydrocodone/APAP 5/325 [[place] 1 tab PO QID PRN 12/07/17 12/07/17 History 5/325] azaTHIOprine [Imuran] 50 mg PO BID 12/07/17 12/07/17 History Allergies Allergy/AdvReac Type Severity Reaction Status Date / Time No Known Allergies Allergy Verified 12/07/17 09:09 Exam Vital signs: Temperature 97.5 F 12/10/17 11:00 Pulse Rate 134 H 12/10/17 11:00 Respiratory Rate 18 12/10/17 11:49 Blood Pressure 112/63 12/10/17 11:00 Pulse Oximetry 96 12/10/17 11:49 - Constitutional mild distress, thin, cooperative - Routine HEENT Exam Head: Present: normocephalic Eye: Present: EOMI ENT: Present: mucous membranes moist (mild white coating of tongue) - Routine Neck Exam Present: supple. Absent: lymphadenopathy, thyromegaly - Routine Respiratory Exam Present: rhonchi, wheezes - Routine Cardiovascular Exam Present: RRR, tachycardia - Routine Abdominal Exam Present: soft, non distended, non tender - Routine Extremities Exam Present: no edema, joint swelling (christopher hands w/ lateral deviation of fingers) - Routine Skin Exam Present: dry, pallor, petechiae (dorsum christopher. feet and christopher. lower arms/wrists) - Routine Neurological Exam Present: alert, moving all extremities - Routine Psychiatric Exam Present: normal affect, cooperative Oncology Results - Labs CBC & Chem 7: 12/10/17 04:00 12/10/17 04:00 Labs: Short CBC 12/10/17 12/10/17 Range/Units 00:16 04:00 WBC 3.4 L (4.5-11.0) T/MM3 Hgb 8.0 L (13.5-17.5) GM/DL Hct 23.0 L (41-53) % Plt Count 30 L D 28 L* (130-400) T/MM3 BMP 12/10/17 04:00 Sodium 135 Potassium 4.1 Chloride 105 Carbon Dioxide 23 BUN 11.0 Creatinine 0.5 L Glucose 90 Calcium 10.6 H Liver Function 12/10/17 Range/Units 04:00 Total Bilirubin 1.50 H (0.20-1.30) MG/DL AST 146 H (17-59) U/L ALT 75 H (21-72) U/L Alkaline Phosphatase 513 H (38-126) U/L Albumin 2.2 L (3.5-5.0) G/DL Assessment and Plan Assessment and Plan: Assessment 1. Pancytopenia with decreased WBC, HGB, and platelets. Potential medication effect versus bone marrow failure vs liver disease versus metastatic process. 2. sepsis/pneumonia 3. COPD 4. rheumatoid arthritis Plan check GGT, LDH, peripheral smear, and reticulocyte count. Will recommend CT chest/abd/pelvis, without contrast. Dr. Galarza discussed with Dr. Malissa Jolly and patient/family. Continue supportive care. <Davy Galarza - Last Filed: 12/10/17 20:50> Oncology HPI - Data of Consult Requesting Physician: Didi Jolly MD Primary Care Provider: Jair Danielle MD Family Provider: Jair Danielle MD [facility] Patient Stated Medical History Dental Problems Yes: poor fitting dentures Other HEENT Yes: a lot of sore throats Hypotension Yes: with sepsis 11/2017 Pneumonia Yes Other Respiratory Yes: 40 pk/yr hx. started smoking 1978 Gastrointestinal Bleeding Yes: current Hx Renal Disease No Clotting Problems Yes: thrombocytopenia Other Musculoskeletal Yes: RA Shingles Yes Exam Vital signs: Temperature 97.8 F 12/10/17 15:15 Pulse Rate 130 H 12/10/17 16:00 Respiratory Rate 36 H 12/10/17 17:31 Blood Pressure 116/73 12/10/17 15:45 Pulse Oximetry 97 12/10/17 17:31 - Routine Respiratory Exam Present: dyspnea - Detailed Upper Extremity Exam Hand/Fingers: Bilateral joint swelling Oncology Results - Labs CBC & Chem 7: 12/10/17 20:09 12/10/17 20:09 Labs: Short CBC 12/10/17 12/10/17 12/10/17 Range/Units 00:16 04:00 20:09 WBC 3.4 L (4.5-11.0) T/MM3 Hgb 8.0 L 7.6 L (13.5-17.5) GM/DL Hct 23.0 L (41-53) % Plt Count 30 L D 28 L* (130-400) T/MM3 BMP 12/10/17 12/10/17 04:00 20:09 Sodium 135 138 Potassium 4.1 3.4 L Chloride 105 108 H Carbon Dioxide 23 22 BUN 11.0 11.0 Creatinine 0.5 L 0.6 L Glucose 90 118 H Calcium 10.6 H 10.7 H Liver Function 12/10/17 Range/Units 04:00 Total Bilirubin 1.50 H (0.20-1.30) MG/DL AST 146 H (17-59) U/L ALT 75 H (21-72) U/L Alkaline Phosphatase 513 H (38-126) U/L Albumin 2.2 L (3.5-5.0) G/DL Laboratory Tests 12/07/17 12/07/17 12/08/17 08:49 08:49 04:28 WBC Hgb Plt Count Neutrophils % (Manual) Band Neutrophils % Lymphocytes % (Manual) Monocytes % (Manual) Metamyelocytes % Myelocytes % Percent Retic AST ALT Alkaline Phosphatase Lactate Dehydrogenase C-Reactive Protein 570.5 H Procalcitonin 12.91 H* 11.91 H* 12/09/17 12/09/17 12/09/17 04:50 04:50 04:50 WBC Hgb Plt Count 19 L* D Neutrophils % (Manual) 72.0 H Band Neutrophils % 15.0 H Lymphocytes % (Manual) 10.0 L Monocytes % (Manual) 1.0 Metamyelocytes % 1.0 H Myelocytes % 1.0 H Percent Retic AST 128 H D ALT 65 Alkaline Phosphatase 469 H D Lactate Dehydrogenase C-Reactive Protein Procalcitonin 7.64 H* 12/10/17 12/10/17 12/10/17 00:16 03:58 04:00 WBC 3.4 L Hgb 8.0 L Plt Count 30 L D 28 L* Neutrophils % (Manual) 66.0 Band Neutrophils % 12.0 H Lymphocytes % (Manual) 12.0 L Monocytes % (Manual) 9.0 Metamyelocytes % 1.0 H Myelocytes % Percent Retic AST ALT Alkaline Phosphatase Lactate Dehydrogenase 3101 H C-Reactive Protein Procalcitonin 12/10/17 12/10/17 12/10/17 04:00 10:34 15:57 WBC Hgb Plt Count Neutrophils % (Manual) Band Neutrophils % Lymphocytes % (Manual) Monocytes % (Manual) Metamyelocytes % Myelocytes % Percent Retic 0.7 AST 146 H ALT 75 H Alkaline Phosphatase 513 H Lactate Dehydrogenase C-Reactive Protein Procalcitonin 4.09 H* Assessment and Plan Assessment and Plan: Patient examined, chart reviewed, hospital course noted. Sepsis with sputum growing Pseudomonas, staph aureus and Yeast. Elevated Pro Calcitonin. Worsening respiratory status and moved back to ICU today. Pancytopenia with NRBC and Metamyelocytes and Myelocytes on differential worrisome for Myelophthisic process. Immuran can suppress bone marrow function but this is on hold. Would be concerned about metastatic cancer with LDH of over 3000. This could also be due to sepsis or B 12 deficiency. Elevated LFT' s GGT drawn to clarify elevated alk phos as to liver or bone. Consider u/s of liver. Reticulocyte count low at 0.7 %. Peripheral smear pending. 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 Rheumatoid arthritis treated with embryl and Immuran. pancytopenia could be related to Immuran. This is currently on hold. COPD Tobacco use. Rec. Imaging. B 12, MMA and Homocysteine. Continue antibiotics.
--- NOTE | 2017-12-10 15:40 | Pulmonology Progress Note ---
Subjective Principal diagnosis: pneumonia Interval history: moved back to ICU due to respiratory distress, tachycardia afebrile Exam Vital signs: Temperature 97.5 F 12/10/17 11:00 Pulse Rate 150 H 12/10/17 14:49 Respiratory Rate 21 12/10/17 14:46 Blood Pressure 114/81 12/10/17 14:49 Pulse Oximetry 96 12/10/17 11:49 Inpatient Medications: Generic Name Dose Route Start Last Admin Trade Name Freq PRN Reason Stop Dose Admin Hydrocodone Bitart/Acetaminophen 1 tab 12/07/17 11:21 12/09/17 08:00 Dinosaur 5/325 PO 1 tab QID PRN Administration Pain Albuterol/Ipratropium 3 ml 12/07/17 16:00 12/10/17 11:46 Duoneb AEROSOL 3 ml Q4HR RANDALL Administration Benzonatate 100 mg 12/07/17 12:48 Tessalon Perles PO TID PRN Cough Bisacodyl 10 mg 12/07/17 12:53 Dulcolax RECTALLY DAILY PRN Constipation Clotrimazole 10 mg 12/09/17 12:00 12/10/17 13:16 Mycelex Pj MM 10 mg 5XD RANDALL Administration Fluticasone Propionate 1 spray 12/07/17 11:25 Flonase EA NOSTRIL DAILY PRN PRN orders Cefepime HCl 1 gm/ Sodium 50 mls @ 100 mls/hr 12/07/17 16:00 12/10/17 09:07 Chloride IV 100 mls/hr Q6H RANDALL Administration Levofloxacin/Dextrose 750 mg in 150 mls @ 100 mls/hr 12/07/17 11:21 12/10/17 11:19 Levaquin Premix IV 100 mls/hr Q24H RANDALL Administration Potassium Chloride 20 meq/ 1,014.5455 mls @ 50 mls/hr 12/09/17 11:00 05:30 Potassium Phosphate 20 meq/ IV 0 mls/hr Sodium Chloride .[id number] RANDALL Infusion Vancomycin HCl 1,750 mg/ 500 mls @ 250 mls/hr 12/09/17 14:00 12/10/17 07:54 Sodium Chloride IV Infused Q12H RANDALL Infusion Lorazepam 0.25 mg 12/07/17 12:48 Ativan Inj IVP Q4H PRN Air hunger/Anxiety Magnesium Hydroxide 30 ml 12/07/17 12:53 Mom PO DAILY PRN Constipation Morphine Sulfate 2 mg 12/07/17 12:47 12/10/17 11:14 Morphine Sulfate Inj IVP 2 mg Q2HR PRN Administration Pain Nicotine 21 mg 12/07/17 10:45 12/10/17 09:07 Nicoderm TD 21 mg DAILY RANDALL Administration Nicotine 1 removal 12/08/17 09:00 12/10/17 09:08 Nicotine Patch Removal TD 1 removal DAILY RANDALL Administration Ondansetron HCl 4 mg 12/07/17 11:21 Zofran IVP Q6H PRN Nausea Polyethylene Glycol 17 gm 12/09/17 11:00 12/10/17 09:08 Miralax PO Not Given DAILY RANDALL Promethazine HCl/Codeine 5 ml 12/07/17 12:49 Phenergan + Codeine PO Q6HR PRN Cough Sodium Chloride 10 - 80 ml 12/07/17 08:43 12/10/17 05:33 Iv Flush IVF 10 ml PRN PRN Administration Flushing Sodium Chloride 500 ml 12/07/17 11:24 12/09/17 21:27 Normal Saline IV 500 ml PRN PRN Administration Sodium Chloride 2 spray 12/08/17 10:15 12/10/17 13:20 Deep Sea Nasal Moisturizing [place]clure EA NOSTRIL 2 spray QID RANDALL Administration Sodium Chloride 500 ml 12/09/17 10:36 Normal Saline IV PRN PRN Discontinued Medications Generic Name Dose Route Start Last Admin Trade Name Freq PRN Reason Stop Dose Admin Albuterol/Ipratropium 3 ml 12/07/17 11:00 12/07/17 16:44 Duoneb AEROSOL Not Given RTQID RANDALL Diphenhydramine HCl 50 mg 12/09/17 10:36 12/09/17 12:51 Benadryl PO 12/09/17 10:37 50 mg ONCE ONE Administration Cefepime HCl 1 gm/ Sodium 100 mls @ 200 mls/hr 12/07/17 08:43 12/07/17 09:33 Chloride IV 12/07/17 09:12 Infused O ONE Infusion Sodium Chloride 1,000 mls @ 1,000 mls/hr 12/07/17 08:43 12/07/17 10:08 Normal Saline IV 12/07/17 09:42 Infused .Q1H ONE Infusion Sodium Chloride 1,000 mls @ 999.9 mls/hr 12/07/17 09:13 12/07/17 11:38 Normal Saline IV 12/07/17 10:12 Infused .Q1H ONE Infusion Sodium Chloride 1,000 mls @ 125 mls/hr 12/07/17 11:21 12/08/17 10:31 Normal Saline IV Infused .Q8H RANDALL Infusion Vancomycin HCl 1,250 mg/ 250 mls @ 200 mls/hr 12/08/17 02:00 12/09/17 18:58 Sodium Chloride IV Not Given Q12H RANDALL Vancomycin HCl 1,750 mg/ 500 mls @ 250 mls/hr 12/07/17 14:00 12/07/17 15:00 Sodium Chloride IV 12/07/17 14:01 Infused O ONE Infusion Sodium Chloride 500 mls @ 500 mls/hr 12/08/17 03:40 12/08/17 03:40 Normal Saline IV 12/08/17 04:39 Not Given .Q1H ONE Sodium Chloride 500 mls @ 500 mls/hr 12/08/17 05:30 12/08/17 05:17 Normal Saline IV 12/08/17 06:30 Not Given .Q1H RANDALL Potassium Chloride 20 meq/ 1,014.5455 mls @ 75 mls/hr 12/08/17 09:45 13:00 Potassium Phosphate 20 meq/ IV 0 mls/hr Sodium Chloride .[id number] RANDALL Infusion Vancomycin HCl 1 each 12/07/17 11:09 Pharmacy Consult - Vancomycin 12/07/17 11:10 O ONE Vancomycin HCl 1 each 12/07/17 11:21 Pharmacy Consult - Vancomycin 12/07/17 11:22 O ONE - Constitutional mild distress, thin - Routine HEENT Exam Head: Present: normocephalic, atraumatic Eye: Absent: conjunctival icterus - Routine Neck Exam Present: supple, full ROM - Routine Respiratory Exam Present: accessory muscle use, decreased breath sounds, CTA bilaterally. Absent : patient mechanically ventilated - Routine Cardiovascular Exam Present: tachycardia. Absent: murmur - Routine Abdominal Exam Present: soft. Absent: guarding - Routine Extremities Exam Absent: cyanosis, clubbing - Routine Skin Exam Absent: rash - Routine Neurological Exam Absent: motor deficit - Urinary Catheter Management Urethral Cath placed during this visit: yes Insertion date: 12/07/17 Insertion time: 19:45 Results - Laboratory Findings Laboratory: Laboratory Results - last 48 hr 12/09/17 12/09/17 12/09/17 04:50 04:50 04:50 WBC 3.7 L D RBC 2.39 L Hgb 8.2 L Hct 23.4 L D MCV 97.9 MCH 34.3 H MCHC 35.0 RDW Std Deviation 72.3 H Plt Count 19 L* D MPV 10.0 Immature Gran % (Auto) Not performed Neut % (Auto) Not performed Lymph % (Auto) Not performed Swisher % (Auto) Not performed Eos % (Auto) Not performed Baso % (Auto) Not performed Neut # (Auto) Not performed Lymph # (Auto) Not performed Swisher # (Auto) Not performed Eos # (Auto) Not performed Baso # (Auto) Not performed Abs Immat Gran (auto) Not performed Neutrophils % (Manual) 72.0 H Band Neutrophils % 15.0 H Lymphocytes % (Manual) 10.0 L Monocytes % (Manual) 1.0 Metamyelocytes % 1.0 H Myelocytes % 1.0 H Neutrophils # (Manual) 2.7 Band Neutrophils # 0.6 Lymphocytes # (Manual) 0.4 L Monocytes # (Manual) 0.0 Metamyelocytes # 0.0 Myelocytes # 0.0 Nucleated RBCs Blood Smear Review Poikilocytosis Anisocytosis 1+ Tear Drop Cells Ovalocytes Helmet Cells Schistocytes RBC Morph Comment Abnormal Absolute Retic Percent Retic Immature Retic Fraction Retic Hgb Content CHr Turbidity < 20 Sodium 134 D Potassium 4.2 Chloride 104 D Carbon Dioxide 20 L Anion Gap 10 BUN 15.0 Creatinine 0.6 L GFR Calculation 139 BUN/Creatinine Ratio 25 Glucose 115 H Calculated Osmolality 260 L Calcium 10.6 H D Phosphorus 4.3 Magnesium 2.0 Total Bilirubin 1.50 H Icterus Index < 2 AST 128 H D ALT 65 Alkaline Phosphatase 469 H D Ammonia Lactate Dehydrogenase Total Protein 5.0 L Albumin 2.2 L Globulin 2.8 Albumin/Globulin Ratio 0.8 L Procalcitonin 7.64 H* TSH PTH Intact Specimen Hemolysis < 15 Vancomycin Trough Blood Product Request 12/09/17 12/09/17 12/10/17 10:36 13:03 00:16 WBC RBC Hgb Hct MCV MCH MCHC RDW Std Deviation Plt Count 30 L D MPV Immature Gran % (Auto) Neut % (Auto) Lymph % (Auto) Swisher % (Auto) Eos % (Auto) Baso % (Auto) Neut # (Auto) Lymph # (Auto) Swisher # (Auto) Eos # (Auto) Baso # (Auto) Abs Immat Gran (auto) Neutrophils % (Manual) Band Neutrophils % Lymphocytes % (Manual) Monocytes % (Manual) Metamyelocytes % Myelocytes % Neutrophils # (Manual) Band Neutrophils # Lymphocytes # (Manual) Monocytes # (Manual) Metamyelocytes # Myelocytes # Nucleated RBCs Blood Smear Review Poikilocytosis Anisocytosis Tear Drop Cells Ovalocytes Helmet Cells Schistocytes RBC Morph Comment Absolute Retic Percent Retic Immature Retic Fraction Retic Hgb Content CHr Turbidity Sodium Potassium Chloride Carbon Dioxide Anion Gap BUN Creatinine GFR Calculation BUN/Creatinine Ratio Glucose Calculated Osmolality Calcium Phosphorus Magnesium Total Bilirubin Icterus Index AST ALT Alkaline Phosphatase Ammonia Lactate Dehydrogenase Total Protein Albumin Globulin Albumin/Globulin Ratio Procalcitonin TSH PTH Intact Specimen Hemolysis Vancomycin Trough 13.73 L Blood Product Request 1 unit ppp issued 12/10/17 12/10/17 12/10/17 03:58 04:00 04:00 WBC 3.4 L RBC 2.32 L Hgb 8.0 L Hct 23.0 L MCV 99.1 MCH 34.5 H MCHC 34.8 RDW Std Deviation 71.8 H Plt Count 28 L* MPV 9.9 Immature Gran % (Auto) Not performed Neut % (Auto) Not performed Lymph % (Auto) Not performed Swisher % (Auto) Not performed Eos % (Auto) Not performed Baso % (Auto) Not performed Neut # (Auto) Not performed Lymph # (Auto) Not performed Swisher # (Auto) Not performed Eos # (Auto) Not performed Baso # (Auto) Not performed Abs Immat Gran (auto) Not performed Neutrophils % (Manual) 66.0 Band Neutrophils % 12.0 H Lymphocytes % (Manual) 12.0 L Monocytes % (Manual) 9.0 Metamyelocytes % 1.0 H Myelocytes % Neutrophils # (Manual) 2.2 Band Neutrophils # 0.4 Lymphocytes # (Manual) 0.4 L Monocytes # (Manual) 0.3 Metamyelocytes # 0.0 Myelocytes # Nucleated RBCs 2 Blood Smear Review Poikilocytosis 1+ Anisocytosis 1+ Tear Drop Cells 1+ Ovalocytes 1+ Helmet Cells 1+ Schistocytes 1+ RBC Morph Comment Abnormal Absolute Retic Percent Retic Immature Retic Fraction Retic Hgb Content CHr Turbidity < 20 Sodium 135 Potassium 4.1 Chloride 105 Carbon Dioxide 23 Anion Gap 7 BUN 11.0 Creatinine 0.5 L GFR Calculation 172 BUN/Creatinine Ratio 22 Glucose 90 Calculated Osmolality 259 L Calcium 10.6 H Phosphorus 4.4 Magnesium 1.9 Total Bilirubin 1.50 H Icterus Index < 2 AST 146 H ALT 75 H Alkaline Phosphatase 513 H Ammonia Lactate Dehydrogenase 3101 H Total Protein 4.8 L Albumin 2.2 L Globulin 2.6 Albumin/Globulin Ratio 0.8 L Procalcitonin TSH PTH Intact Specimen Hemolysis < 15 Vancomycin Trough Blood Product Request 12/10/17 12/10/17 12/10/17 04:00 10:34 10:34 WBC RBC Hgb Hct MCV MCH MCHC RDW Std Deviation Plt Count MPV Immature Gran % (Auto) Neut % (Auto) Lymph % (Auto) Swisher % (Auto) Eos % (Auto) Baso % (Auto) Neut # (Auto) Lymph # (Auto) Swisher # (Auto) Eos # (Auto) Baso # (Auto) Abs Immat Gran (auto) Neutrophils % (Manual) Band Neutrophils % Lymphocytes % (Manual) Monocytes % (Manual) Metamyelocytes % Myelocytes % Neutrophils # (Manual) Band Neutrophils # Lymphocytes # (Manual) Monocytes # (Manual) Metamyelocytes # Myelocytes # Nucleated RBCs Blood Smear Review Poikilocytosis Anisocytosis Tear Drop Cells Ovalocytes Helmet Cells Schistocytes RBC Morph Comment Absolute Retic Percent Retic Immature Retic Fraction Retic Hgb Content CHr Turbidity Sodium Potassium Chloride Carbon Dioxide Anion Gap BUN Creatinine GFR Calculation BUN/Creatinine Ratio Glucose Calculated Osmolality Calcium Phosphorus Magnesium Total Bilirubin Icterus Index AST ALT Alkaline Phosphatase Ammonia < 9 L Lactate Dehydrogenase Total Protein Albumin Globulin Albumin/Globulin Ratio Procalcitonin TSH 1.33 PTH Intact 13.5 L Specimen Hemolysis Vancomycin Trough Blood Product Request 12/10/17 12/10/17 10:34 10:34 WBC RBC Hgb Hct MCV MCH MCHC RDW Std Deviation Plt Count MPV Immature Gran % (Auto) Neut % (Auto) Lymph % (Auto) Swisher % (Auto) Eos % (Auto) Baso % (Auto) Neut # (Auto) Lymph # (Auto) Swisher # (Auto) Eos # (Auto) Baso # (Auto) Abs Immat Gran (auto) Neutrophils % (Manual) Band Neutrophils % Lymphocytes % (Manual) Monocytes % (Manual) Metamyelocytes % Myelocytes % Neutrophils # (Manual) Band Neutrophils # Lymphocytes # (Manual) Monocytes # (Manual) Metamyelocytes # Myelocytes # Nucleated RBCs Blood Smear Review notified Poikilocytosis Anisocytosis Tear Drop Cells Ovalocytes Helmet Cells Schistocytes RBC Morph Comment Absolute Retic 0.0194 L Percent Retic 0.7 Immature Retic Fraction 16.5 H Retic Hgb Content CHr 28.4 L Turbidity Sodium Potassium Chloride Carbon Dioxide Anion Gap BUN Creatinine GFR Calculation BUN/Creatinine Ratio Glucose Calculated Osmolality Calcium Phosphorus Magnesium Total Bilirubin Icterus Index AST ALT Alkaline Phosphatase Ammonia Lactate Dehydrogenase Total Protein Albumin Globulin Albumin/Globulin Ratio Procalcitonin TSH PTH Intact Specimen Hemolysis Vancomycin Trough Blood Product Request - Diagnostic Findings Chest x-ray: report reviewed, image reviewed Assessment and Plan (1) Acute hypoxemic respiratory failure Status: Acute Assessment and plan: continue O2 at 4 lpm to maintain O2 sat >90% Current Visit: Yes (2) Septic shock Status: Acute Assessment and plan: likely related to RLL pneumonia, worsening airspace disease on CXR today. repeat cultures continue empiric antibiotics with Vanco/Cefepime/Levaquin agree with transfer to ICU Current Visit: Yes - Assessment and Plan Acute Hypoxic Respiratory Failure Sepsis RUL pneumonia RA/Immune compromised - Imuran/Enbrel Pancytopenia - likely 2/2 sepsis Likely COPD Tobaccoism Hyponatremia - improved - Time Spent With Patient Total time spent is greater than 50% in coordination of care (as documented) at patient's floor/unit and/or counseling patient: less than 15 minutes
[2017-12-10] MEDS: NS FLUSH BAG 500ml IV PRN (16:47)
[2017-12-10] MEDS ORDERED: NS 1,000 ML IV ONE (16:53)
[2017-12-10] MEDS ORDERED: NS FLUSH BAG 500ml IV PRN (16:57)
[2017-12-10] MEDS: HYDROCODONE/APAP 5mg/325mg TABLET PO PRN (20:42)
[2017-12-11] MEDS: ALBUTEROL/IPRATROPIUM 2.5mg-0.5mg/3ml NEB AEROSOL SCH ×6 (01:15→20:11)
[2017-12-11] MEDS: MORPHINE SULFATE 2mg INJECTION IVP PRN (03:40)
[2017-12-11] MEDS: CEFEPIME 1 GM in NS 50 ML IV SCH (03:55)
[2017-12-11] MEDS: SALINE FLUSH 10ml SYRINGE IVF PRN ×3 (08:24→23:59)
[2017-12-11] MEDS: POLYETHYL GLYCOL 3350 17gm PACKET PO SCH (08:25)
[2017-12-11] MEDS: CLOTRIMAZOLE 10 MG TROCHE MM SCH ×5 (08:26→23:02)
[2017-12-11] MEDS: HYDROCODONE/APAP 5mg/325mg TABLET PO PRN ×2 (08:27→20:04)
--- NOTE | 2017-12-11 08:28 | XRay Report ---
Indication: pneumonia and hypoxia PROCEDURE: XR chest 1V: Encounter: Initial Comparison: December 10, 2017 Findings: Severe right-sided airspace consolidation has not significantly changed. Diffuse groundglass type opacity in the right mid to lower lung field. No pneumothorax. Trace right effusion. Prior right PICC line has been removed. New left PICC line in place with the tip projecting over the expected cavoatrial junction. Impression: No significant change in severe right-sided airspace consolidation. There may be superimposed pulmonary edema which would be atypical edema given the relatively normal pulmonary vascularity on the left. This pattern of consolidation can sometimes be seen in acute mitral regurgitation. .
--- NOTE | 2017-12-11 10:01 | Pulmonology Progress Note ---
Subjective Principal diagnosis: pneumonia Interval history: Pt sitting up in the chair, resting. Wakes to voice. States no SOB at this time , + cough with some sputum. Exam Vital signs: Temperature 98.6 F 12/11/17 08:00 Pulse Rate 132 H 12/11/17 08:30 Respiratory Rate 19 12/11/17 08:30 Blood Pressure 123/90 H 12/11/17 08:00 Pulse Oximetry 95 12/11/17 08:30 Inpatient Medications: Generic Name Dose Route Start Last Admin Trade Name Freq PRN Reason Stop Dose Admin Hydrocodone Bitart/Acetaminophen 1 tab 12/07/17 11:21 12/11/17 08:27 [place] 5/325 PO 1 tab QID PRN Administration Pain Albuterol/Ipratropium 3 ml 12/07/17 16:00 12/11/17 07:30 Duoneb AEROSOL 3 ml Q4HR RANDALL Administration Benzonatate 100 mg 12/07/17 12:48 Tessalon Perles PO TID PRN Cough Bisacodyl 10 mg 12/07/17 12:53 Dulcolax RECTALLY DAILY PRN Constipation Clotrimazole 10 mg 12/09/17 12:00 12/11/17 08:26 Mycelex Pj MM 10 mg 5XD RANDALL Administration Fluticasone Propionate 1 spray 12/07/17 11:25 Flonase EA NOSTRIL DAILY PRN PRN orders Cefepime HCl 1 gm/ Sodium 50 mls @ 100 mls/hr 12/07/17 16:00 12/11/17 04:25 Chloride IV Infused Q6H RANDALL Infusion Levofloxacin/Dextrose 750 mg in 150 mls @ 100 mls/hr 12/07/17 11:21 12/10/17 12:49 Levaquin Premix IV Infused Q24H RANDALL Infusion Potassium Chloride 20 meq/ 1,014.5455 mls @ 50 mls/hr 12/09/17 11:00 05:30 Potassium Phosphate 20 meq/ IV 0 mls/hr Sodium Chloride .[id number] RANDALL Infusion Vancomycin HCl 1,750 mg/ 500 mls @ 250 mls/hr 12/09/17 14:00 12/11/17 08:15 Sodium Chloride IV 250 mls/hr Q12H RANDALL Administration Lorazepam 0.25 mg 12/07/17 12:48 Ativan Inj IVP Q4H PRN Air hunger/Anxiety Magnesium Hydroxide 30 ml 12/07/17 12:53 Mom PO DAILY PRN Constipation Morphine Sulfate 2 mg 12/07/17 12:47 12/11/17 03:40 Morphine Sulfate Inj IVP 2 mg Q2HR PRN Administration Pain Nicotine 21 mg 12/07/17 10:45 12/10/17 09:07 Nicoderm TD 21 mg DAILY RANDALL Administration Nicotine 1 removal 12/08/17 09:00 12/10/17 09:08 Nicotine Patch Removal TD 1 removal DAILY RANDALL Administration Ondansetron HCl 4 mg 12/07/17 11:21 Zofran IVP Q6H PRN Nausea Polyethylene Glycol 17 gm 12/09/17 11:00 12/11/17 08:25 Miralax PO 17 gm DAILY RANDALL Administration Promethazine HCl/Codeine 5 ml 12/07/17 12:49 Phenergan + Codeine PO Q6HR PRN Cough Sodium Chloride 10 - 80 ml 12/07/17 08:43 12/11/17 08:24 Iv Flush IVF 30 ml PRN PRN Administration [place] Sodium Chloride 500 ml 12/07/17 11:24 12/10/17 16:47 Normal Saline IV 500 ml PRN PRN Administration Sodium Chloride 2 spray 12/08/17 10:15 12/10/17 22:22 [place] Nasal Moisturizing [place] EA NOSTRIL 2 spray QID RANDALL Administration Sodium Chloride 500 ml 12/09/17 10:36 12/11/17 08:14 Normal Saline IV 500 ml PRN PRN Administration Sodium Chloride 500 ml 12/10/17 16:57 Normal Saline IV PRN PRN Discontinued Medications Generic Name Dose Route Start Last Admin Trade Name Freq PRN Reason Stop Dose Admin Albuterol/Ipratropium 3 ml 12/07/17 11:00 12/07/17 16:44 Duoneb AEROSOL Not Given RTQID RANDALL Diphenhydramine HCl 50 mg 12/09/17 10:36 12/09/17 12:51 Benadryl PO 12/09/17 10:37 50 mg ONCE ONE Administration Cefepime HCl 1 gm/ Sodium 100 mls @ 200 mls/hr 12/07/17 08:43 12/07/17 09:33 Chloride IV 12/07/17 09:12 Infused O ONE Infusion Sodium Chloride 1,000 mls @ 1,000 mls/hr 12/07/17 08:43 12/07/17 10:08 Normal Saline IV 12/07/17 09:42 Infused .Q1H ONE Infusion Sodium Chloride 1,000 mls @ 999.9 mls/hr 12/07/17 09:13 12/07/17 11:38 Normal Saline IV 12/07/17 10:12 Infused .Q1H ONE Infusion Sodium Chloride 1,000 mls @ 125 mls/hr 12/07/17 11:21 12/08/17 10:31 Normal Saline IV Infused .Q8H RANDALL Infusion Vancomycin HCl 1,250 mg/ 250 mls @ 200 mls/hr 12/08/17 02:00 12/09/17 18:58 Sodium Chloride IV Not Given Q12H RANDALL Vancomycin HCl 1,750 mg/ 500 mls @ 250 mls/hr 12/07/17 14:00 12/07/17 15:00 Sodium Chloride IV 12/07/17 14:01 Infused O ONE Infusion Sodium Chloride 500 mls @ 500 mls/hr 12/08/17 03:40 12/08/17 03:40 Normal Saline IV 12/08/17 04:39 Not Given .Q1H ONE Sodium Chloride 500 mls @ 500 mls/hr 12/08/17 05:30 12/08/17 05:17 Normal Saline IV 12/08/17 06:30 Not Given .Q1H RANDALL Potassium Chloride 20 meq/ 1,014.5455 mls @ 75 mls/hr 12/08/17 09:45 13:00 Potassium Phosphate 20 meq/ IV 0 mls/hr Sodium Chloride .[id number] RANDALL Infusion Sodium Chloride 1,000 mls @ 500 mls/hr 12/10/17 16:53 12/10/17 19:30 Normal Saline IV 12/10/17 18:52 Infused .Q2H ONE Infusion Vancomycin HCl 1 each 12/07/17 11:09 Pharmacy Consult - Vancomycin 12/07/17 11:10 O ONE Vancomycin HCl 1 each 12/07/17 11:21 Pharmacy Consult - Vancomycin 12/07/17 11:22 O ONE - Constitutional no acute distress, thin, cooperative - Routine HEENT Exam Head: Present: normocephalic, atraumatic Eye: Present: EOMI, PERRL ENT: Present: mucous membranes moist - Routine Neck Exam Present: supple, full ROM, trachea midline - Routine Respiratory Exam Present: decreased breath sounds, rhonchi. Absent: accessory muscle use, patient mechanically ventilated - Routine Cardiovascular Exam Present: RRR, S2, no murmur - Routine Abdominal Exam Present: soft, normoactive bowel sounds - Routine Extremities Exam Present: edema, non tender, full ROM - Routine Back/Spine/Pelvis Exam Back/Spine: Present: full ROM - Routine Skin Exam Present: intact, dry - Routine Neurological Exam Present: alert, CN II-XII intact - Routine Psychiatric Exam Present: normal affect, normal thought process, good judgment - Urinary Catheter Management Urethral Cath placed during this visit: yes Insertion date: 12/07/17 Insertion time: 19:45 Results - Laboratory Findings Laboratory: Laboratory Results - last 48 hr 12/09/17 12/09/17 12/10/17 10:36 13:03 00:16 WBC RBC Hgb Hct MCV MCH MCHC RDW Std Deviation Plt Count 30 L D MPV Immature Gran % (Auto) Neut % (Auto) Lymph % (Auto) [place] % (Auto) Eos % (Auto) Baso % (Auto) Neut # (Auto) Lymph # (Auto) [place] # (Auto) Eos # (Auto) Baso # (Auto) Abs Immat Gran (auto) Neutrophils % (Manual) Band Neutrophils % Lymphocytes % (Manual) Monocytes % (Manual) Metamyelocytes % Neutrophils # (Manual) Band Neutrophils # Lymphocytes # (Manual) Monocytes # (Manual) Metamyelocytes # Nucleated RBCs Blood Smear Review Poikilocytosis Anisocytosis Tear Drop Cells Ovalocytes Helmet Cells Schistocytes RBC Morph Comment Absolute Retic Percent Retic Immature Retic Fraction Retic Hgb Content CHr Turbidity Sodium Potassium Chloride Carbon Dioxide Anion Gap BUN Creatinine GFR Calculation BUN/Creatinine Ratio Glucose Calculated Osmolality Calcium Phosphorus Magnesium Total Bilirubin Icterus Index GGT AST ALT Alkaline Phosphatase Ammonia Lactate Dehydrogenase Total Protein Albumin Globulin Albumin/Globulin Ratio Plasma Lactate Procalcitonin TSH PTH Intact Specimen Hemolysis Vancomycin Trough 13.73 L Blood Type Antibody Screen Crossmatch ([facility]) Blood Product Request 1 unit ppp issued 12/10/17 12/10/17 12/10/17 03:58 04:00 04:00 WBC 3.4 L RBC 2.32 L Hgb 8.0 L Hct 23.0 L MCV 99.1 MCH 34.5 H MCHC 34.8 RDW Std Deviation 71.8 H Plt Count 28 L* MPV 9.9 Immature Gran % (Auto) Not performed Neut % (Auto) Not performed Lymph % (Auto) Not performed [place] % (Auto) Not performed Eos % (Auto) Not performed Baso % (Auto) Not performed Neut # (Auto) Not performed Lymph # (Auto) Not performed [place] # (Auto) Not performed Eos # (Auto) Not performed Baso # (Auto) Not performed Abs Immat Gran (auto) Not performed Neutrophils % (Manual) 66.0 Band Neutrophils % 12.0 H Lymphocytes % (Manual) 12.0 L Monocytes % (Manual) 9.0 Metamyelocytes % 1.0 H Neutrophils # (Manual) 2.2 Band Neutrophils # 0.4 Lymphocytes # (Manual) 0.4 L Monocytes # (Manual) 0.3 Metamyelocytes # 0.0 Nucleated RBCs 2 Blood Smear Review Poikilocytosis 1+ Anisocytosis 1+ Tear Drop Cells 1+ Ovalocytes 1+ Helmet Cells 1+ Schistocytes 1+ RBC Morph Comment Abnormal Absolute Retic Percent Retic Immature Retic Fraction Retic Hgb Content CHr Turbidity < 20 Sodium 135 Potassium 4.1 Chloride 105 Carbon Dioxide 23 Anion Gap 7 BUN 11.0 Creatinine 0.5 L GFR Calculation 172 BUN/Creatinine Ratio 22 Glucose 90 Calculated Osmolality 259 L Calcium 10.6 H Phosphorus 4.4 Magnesium 1.9 Total Bilirubin 1.50 H Icterus Index < 2 GGT AST 146 H ALT 75 H Alkaline Phosphatase 513 H Ammonia Lactate Dehydrogenase 3101 H Total Protein 4.8 L Albumin 2.2 L Globulin 2.6 Albumin/Globulin Ratio 0.8 L Plasma Lactate Procalcitonin TSH PTH Intact Specimen Hemolysis < 15 Vancomycin Trough Blood Type Antibody Screen Crossmatch ([facility]) Blood Product Request 12/10/17 12/10/17 12/10/17 04:00 10:34 10:34 WBC RBC Hgb Hct MCV MCH MCHC RDW Std Deviation Plt Count MPV Immature Gran % (Auto) Neut % (Auto) Lymph % (Auto) [place] % (Auto) Eos % (Auto) Baso % (Auto) Neut # (Auto) Lymph # (Auto) [place] # (Auto) Eos # (Auto) Baso # (Auto) Abs Immat Gran (auto) Neutrophils % (Manual) Band Neutrophils % Lymphocytes % (Manual) Monocytes % (Manual) Metamyelocytes % Neutrophils # (Manual) Band Neutrophils # Lymphocytes # (Manual) Monocytes # (Manual) Metamyelocytes # Nucleated RBCs Blood Smear Review Poikilocytosis Anisocytosis Tear Drop Cells Ovalocytes Helmet Cells Schistocytes RBC Morph Comment Absolute Retic Percent Retic Immature Retic Fraction Retic Hgb Content CHr Turbidity Sodium Potassium Chloride Carbon Dioxide Anion Gap BUN Creatinine GFR Calculation BUN/Creatinine Ratio Glucose Calculated Osmolality Calcium Phosphorus Magnesium Total Bilirubin Icterus Index GGT AST ALT Alkaline Phosphatase Ammonia < 9 L Lactate Dehydrogenase Total Protein Albumin Globulin Albumin/Globulin Ratio Plasma Lactate Procalcitonin TSH 1.33 PTH Intact 13.5 L Specimen Hemolysis Vancomycin Trough Blood Type Antibody Screen Crossmatch ([facility]) Blood Product Request 12/10/17 12/10/17 12/10/17 10:34 10:34 13:26 WBC RBC Hgb Hct MCV MCH MCHC RDW Std Deviation Plt Count MPV Immature Gran % (Auto) Neut % (Auto) Lymph % (Auto) [place] % (Auto) Eos % (Auto) Baso % (Auto) Neut # (Auto) Lymph # (Auto) [place] # (Auto) Eos # (Auto) Baso # (Auto) Abs Immat Gran (auto) Neutrophils % (Manual) Band Neutrophils % Lymphocytes % (Manual) Monocytes % (Manual) Metamyelocytes % Neutrophils # (Manual) Band Neutrophils # Lymphocytes # (Manual) Monocytes # (Manual) Metamyelocytes # Nucleated RBCs Blood Smear Review notified Poikilocytosis Anisocytosis Tear Drop Cells Ovalocytes Helmet Cells Schistocytes RBC Morph Comment Absolute Retic 0.0194 L Percent Retic 0.7 Immature Retic Fraction 16.5 H Retic Hgb Content CHr 28.4 L Turbidity Sodium Potassium Chloride Carbon Dioxide Anion Gap BUN Creatinine GFR Calculation BUN/Creatinine Ratio Glucose Calculated Osmolality Calcium Phosphorus Magnesium Total Bilirubin Icterus Index GGT 249 H AST ALT Alkaline Phosphatase Ammonia Lactate Dehydrogenase Total Protein Albumin Globulin Albumin/Globulin Ratio Plasma Lactate Procalcitonin TSH PTH Intact Specimen Hemolysis Vancomycin Trough Blood Type Antibody Screen Crossmatch ([facility]) Blood Product Request 12/10/17 12/10/17 12/10/17 15:57 15:57 20:09 WBC RBC Hgb Hct MCV MCH MCHC RDW Std Deviation Plt Count MPV Immature Gran % (Auto) Neut % (Auto) Lymph % (Auto) [place] % (Auto) Eos % (Auto) Baso % (Auto) Neut # (Auto) Lymph # (Auto) [place] # (Auto) Eos # (Auto) Baso # (Auto) Abs Immat Gran (auto) Neutrophils % (Manual) Band Neutrophils % Lymphocytes % (Manual) Monocytes % (Manual) Metamyelocytes % Neutrophils # (Manual) Band Neutrophils # Lymphocytes # (Manual) Monocytes # (Manual) Metamyelocytes # Nucleated RBCs Blood Smear Review Poikilocytosis Anisocytosis Tear Drop Cells Ovalocytes Helmet Cells Schistocytes RBC Morph Comment Absolute Retic Percent Retic Immature Retic Fraction Retic Hgb Content CHr Turbidity Sodium Potassium Chloride Carbon Dioxide Anion Gap BUN Creatinine GFR Calculation BUN/Creatinine Ratio Glucose Calculated Osmolality Calcium Phosphorus Magnesium Total Bilirubin Icterus Index GGT AST ALT Alkaline Phosphatase Ammonia Lactate Dehydrogenase Total Protein Albumin Globulin Albumin/Globulin Ratio Plasma Lactate 2.7 H 2.0 Procalcitonin 4.09 H* TSH PTH Intact Specimen Hemolysis Vancomycin Trough Blood Type Antibody Screen Crossmatch ([facility]) Blood Product Request 12/10/17 12/10/17 12/10/17 20:09 20:09 20:09 WBC RBC Hgb 7.6 L Hct MCV MCH MCHC RDW Std Deviation Plt Count MPV Immature Gran % (Auto) Neut % (Auto) Lymph % (Auto) [place] % (Auto) Eos % (Auto) Baso % (Auto) Neut # (Auto) Lymph # (Auto) [place] # (Auto) Eos # (Auto) Baso # (Auto) Abs Immat Gran (auto) Neutrophils % (Manual) Band Neutrophils % Lymphocytes % (Manual) Monocytes % (Manual) Metamyelocytes % Neutrophils # (Manual) Band Neutrophils # Lymphocytes # (Manual) Monocytes # (Manual) Metamyelocytes # Nucleated RBCs Blood Smear Review Poikilocytosis Anisocytosis Tear Drop Cells Ovalocytes Helmet Cells Schistocytes RBC Morph Comment Absolute Retic Percent Retic Immature Retic Fraction Retic Hgb Content CHr Turbidity < 20 Sodium 138 Potassium 3.4 L Chloride 108 H Carbon Dioxide 22 Anion Gap 8 BUN 11.0 Creatinine 0.6 L GFR Calculation 139 BUN/Creatinine Ratio 18 Glucose 118 H Calculated Osmolality 266 Calcium 10.7 H Phosphorus Magnesium Total Bilirubin Icterus Index < 2 GGT AST ALT Alkaline Phosphatase Ammonia Lactate Dehydrogenase Total Protein Albumin Globulin Albumin/Globulin Ratio Plasma Lactate Procalcitonin TSH PTH Intact Specimen Hemolysis < 15 Vancomycin Trough Blood Type O Positive Antibody Screen Negative Crossmatch ([facility]) See Detail Blood Product Request 12/11/17 12/11/17 03:48 03:48 WBC 4.8 D RBC 2.32 L Hgb 7.9 L Hct 23.2 L MCV 100.0 MCH 34.1 H MCHC 34.1 RDW Std Deviation 71.7 H Plt Count 18 L* D MPV Not performed Immature Gran % (Auto) Neut % (Auto) Lymph % (Auto) [place] % (Auto) Eos % (Auto) Baso % (Auto) Neut # (Auto) Lymph # (Auto) [place] # (Auto) Eos # (Auto) Baso # (Auto) Abs Immat Gran (auto) Neutrophils % (Manual) 67.0 H Band Neutrophils % 12.0 H Lymphocytes % (Manual) 14.0 L Monocytes % (Manual) 4.0 Metamyelocytes % 3.0 H Neutrophils # (Manual) 3.2 Band Neutrophils # 0.6 Lymphocytes # (Manual) 0.7 L Monocytes # (Manual) 0.2 Metamyelocytes # 0.1 Nucleated RBCs 1 Blood Smear Review Poikilocytosis 1+ Anisocytosis 2+ Tear Drop Cells Ovalocytes 1+ Helmet Cells 1+ Schistocytes 1+ RBC Morph Comment Abnormal Absolute Retic Percent Retic Immature Retic Fraction Retic Hgb Content CHr Turbidity < 20 Sodium 139 Potassium 3.5 L Chloride 108 H Carbon Dioxide 22 Anion Gap 9 BUN 12.0 Creatinine 0.6 L GFR Calculation 139 BUN/Creatinine Ratio 20 Glucose 108 Calculated Osmolality 269 Calcium 11.5 H Phosphorus Magnesium Total Bilirubin 1.30 Icterus Index < 2 GGT AST 75 H D ALT 67 Alkaline Phosphatase 475 H Ammonia Lactate Dehydrogenase Total Protein 4.9 L Albumin 2.2 L Globulin 2.7 Albumin/Globulin Ratio 0.8 L Plasma Lactate Procalcitonin TSH PTH Intact Specimen Hemolysis < 15 Vancomycin Trough Blood Type Antibody Screen Crossmatch ([facility]) Blood Product Request - Diagnostic Findings Chest x-ray: image reviewed (CXR: Continued RUL infiltrates, no change) Assessment and Plan - Assessment and Plan Acute Hypoxic Respiratory Failure Sepsis RUL pneumonia RA/Immune compromised - Imuran/Enbrel Pancytopenia - likely 2/2 sepsis Likely COPD Tobaccoism Hyponatremia - improved Dysphagia - alt diet Plan: Pt currently on O2 at 2L per [place], saad. O2 to keep sats 90-95%. CXR still with RUL infiltrate. sputum + psa and MSSA, currently on Vanco, levaquin and cefepime , primary to d/c cefepime. Primary also checking a CT chest/abd/pelvis, ? possible cancer, Ca+ elevated. Repeat cultures from yesterday pending. Continue on BT's with A/A q4hr and acapella. - Time Spent With Patient Total time spent is greater than 50% in coordination of care (as documented) at patient's floor/unit and/or counseling patient: less than 15 minutes
[2017-12-11] MEDS: NICOTINE 21 MG PATCH TD SCH (10:23)
[2017-12-11] MEDS: NICOTINE PATCH REMOVAL TD SCH (10:23)
[2017-12-11] MEDS: SALINE 0.65% NASAL SPRAY 44 ML BOTTLE EA NOSTRIL SCH ×4 (10:28→23:08)
[2017-12-11] MEDS ORDERED: FUROSEMIDE 20 MG/2 ML INJECTION IVP ONE (10:29)
[2017-12-11] MEDS ORDERED: DiphenhydrAMINE 25 MG CAPSULE PO ONE (10:29)
[2017-12-11] MEDS ORDERED: NS FLUSH BAG 500ml IV PRN (10:29)
[2017-12-11] MEDS ORDERED: ACETAMINOPHEN 325 MG TABLET PO ONE (10:30)
--- NOTE | 2017-12-11 10:40 | Progress Note ---
- Date 12/11/17 Subjective: The patient was seen this morning in CCU. He is sitting up in a chair. He has some mild shortness of breath. His heart rate remains in the 120s to 130s throughout the night. He seems a little confused. Speech is a little dysarthric. He complains of pain in his legs which is chronic. He denies any chest pain or abdominal pain. He denies any nausea. His appetite has been poor. He did check for breakfast. He has a Rivas in place with good urine output. RT was able to turn down his oxygen to 2 L today. Objective Vital signs: Temperature 98.6 F 12/11/17 08:00 Pulse Rate 132 H 12/11/17 08:30 Respiratory Rate 19 12/11/17 08:30 Blood Pressure 123/90 H 12/11/17 08:00 Pulse Oximetry 95 12/11/17 08:30 Height/Weight/BMI: Height 1.7 m Weight 70.5 kg Body Mass Index 21.4 Comments: Afebrile, O2 sat 99% on 2 L, heart rate 1:30 blood pressure 166 sitting I&O is 2759/1577 Weight is 70.5 kg which is stable over the past 2 days. Weight on admission was 61.1 kg GEN-alert, mildly mild dysarthric speech HEENT-sclerae anicteric, oropharynx is moist, mild white NECK-supple CV-tachycardic rate with irregular rhythm CHEST-clear to auscultation bilaterally ABD-soft, positive bowel sounds -Rivas in place with good urine output EXT-+1 pedal edema NEURO-mild dysarthric speech which is new per his , cranial nerves II through XII are intact, strength is poor throughout but no focal deficits. Oriented to [facility]. When asked the month he just says which was the date when he was admitted SKIN-warm and dry Results - Labs CBC & Chem 7: 12/11/17 03:48 12/11/17 03:48 Labs: GGT 249, AST 75, ALP 67, alkaline phosphatase 475 LDH 3101 Lactate elevated at 2.7 yesterday afternoon and by evening was 2.0 Microbiology Results: Microbiology 12/07/17 12:45 Sputum, Expectorated Gram Stain - Final 12/07/17 12:45 Sputum, Expectorated Sputum Culture - Preliminary Pseudomonas aeruginosa Staphylococcus aureus Normal Resp Pallavi incl. Yeast 12/10/17 15:57 Peripheral/Iv Start Blood Culture - Preliminary Culture Initiated - Results Pending 12/10/17 16:00 Peripheral/Iv Start Blood Culture - Preliminary Culture Initiated - Results Pending 12/07/17 18:13 Urine Legionella Urinary Antigen - Final 12/07/17 18:13 Urine Streptococcus pneumoniae Antigen (M - Final - Impressions Date of Exam: 12/11/17 Ordering Provider: Didi Jolly MD Type of Exam(s): XR chest 1V Reason for Exam(s): pneumonia and hypoxia Indication: pneumonia and hypoxia PROCEDURE: XR chest 1V: Encounter: Initial Comparison: December 10, 2017 Findings: Severe right-sided airspace consolidation has not significantly changed. Diffuse groundglass type opacity in the right mid to lower lung field. No pneumothorax. Trace right effusion. Prior right PICC line has been removed. New left PICC line in place with the tip projecting over the expected cavoatrial junction. Impression: No significant change in severe right-sided airspace consolidation. There may be superimposed pulmonary edema which would be atypical edema given the relatively normal pulmonary vascularity on the left. This pattern of consolidation can sometimes be seen in acute mitral regurgitation. . Assessment and Plan (1) Septic shock Current visit: Yes Status: Acute (2) Pneumonia Current visit: Yes Status: Acute Assessment and Plan: IMPRESSION Sepsis secondary to Right sided pneumonia Septic shock based on lactate of 4.5 (per CMS) Severe sepsis based on 2016 Surviving Sepsis Guidelines Organ dysfunction = MAP <70, hyperbilirubinemia (2.4), thrombocytopenia ( 16) SOFA on admission = 7, presumed baseline of 0 Pneumonia -right upper lobe and right lower lobe-sputum positive for Pseudomonas and MSSA Acute Hypoxia -currently on 2 L Acute on chronic Hyponatremia (POA) (baseline 131-134) Pancytopenia (POA) including platelet count of 16 and hgb of 8.9 Hyperbilirubinemia, elevated AST and Alk phos, POA Hypercalcemia-worsening Hypoalbuminemia Elevated LDH Elevated CRP and procalcitonin, secondary to acute infection Severe PCM - prealbumin undetectable Thrush. Macrocytic anemia Rheumatoid arthritis Immunocompromised Chronic antritis Tobacco dependency Encephalopathy Sinus tachycardia PLAN The patient had recurrence of elevated lactate yesterday despite continued treatment with triple antibiotics. Heart rate was back up to 1:30. The patient was given IV fluids and transferred back to closer monitoring. This morning hemoglobin is dropped to 7.9 and platelets are 18,000. Discussed with Dr. Galarza and we will give 1 platelet pack and 1 unit of blood. There is concern for occult malignancy and we will obtain a CT head, chest, abdomen and pelvis all without contrast today. Regarding his elevated calcium, PTH was low. Await results of CAT scans. Regarding Pseudomonas and MSSA pneumonia, continue Levaquin. Stop cefepime. Continue vancomycin for now until blood cultures have returned Discussed with Dr. Galarza, [employer], patient's , patient's nurse. Greater than 40 minutes of critical care time spent seeing and evaluating the patient Repeat CBC, CMP, magnesium, phosphorus tomorrow. DVT Prophylaxis: SCD's Resuscitation Status: Full Code - Physician Narrative Physician: Didi Jolly MD Narrative: Date: 12/11/17 Time: 1031 Hospital Course Summary Disclaimer: The visit summary below is not to be considered part of the above Progress Note. Hospital Course: 12/07/17 Admit, inpatient status, to CCU; Patient is critically ill. Dr. Vivar attending. Septic shock based on CMS and Severe Sepsis based on Surviving Sepsis He received full 30 mL/kg bolus in ED. If unable to keep MAP >65, will need to start norepinephrine, which would indicate shock based on 2016 rec. Initial lactate was 4.5; if lactate is still elevated >4 on recheck, this would also indicate shock based on 2016 recommendations. Blood cultures already drawn. Repeat physical exam done. Repeat procalcitonin in am. Sinus tachycardia has improved after fluid boluses, from 138-105. Right sided pneumonia in an immunocompromised patient with significant smoking history. Cefepime was started in the ED -- will continue with this and add vancomycin and levofloxacin d/t immunocompromised state. Check for strep pneumo and legionella. Check sputum culture. Consult Dr. Mckinney; suspect he may require additional respiratory intervention and with smoking hx likely has underlying COPD. AcaEv joya. Ask RT to provide tobacco cessation information. Nicotine patch ordered. Hold RA medications including Enbrel & Imuran. Pancytopenia Suspect d/t sepsis. If no improvement in next few days consider heme consultation. Platelets only 16 on admission. Will give platelet pack x1. Lovenox is contraindicated. SCD for DVT prevention. Macrocytic anemia - check iron studies, folate, vitamin B12. Hyperbilirubinemia Suspect d/t sepsis. Hepatomegaly and RUQ tenderness. He had liver sonogram in Aug, 2017 which was normal. Check INR. Hyponatremia and hypercalcemia Suspect d/t dehydration. Continue IVF and check in am. Advanced directives None. Requests full resuscitation. 12/08/17 Continue with levofloxacin, cefepime and vancomycin for pulmonary coverage. Neb treatments and acapella to continue. Monitor saturations and work of breathing - on 2L currently. Will have speech check swallow secondary to coughing with swallow. Hemoglobin decreased to 6.7 - transfusion initiated. Iron/B12/Folate tests pending. Platelets increased to 30K. Monitor. No Lovenox due to thrombocytopenia. Sodium with slight improvement to 128, but potassium decreased to 3.7. Will change IVF to NS with 20KCl and 20KPhos and decrease rate to 75cc/hr. BP improved. Recheck CMP, Mg, Phos, Procalcitonin, and CBC secondary to resolving septic shock. Continues to need close nursing care and support, continue CCU monitoring. 12/09/17 Continue with levofloxacin, cefepime and vancomycin for pulmonary coverage. Neb treatments and acapella to continue. Monitor saturations and work of breathing - on 2L currently. Start Mycelex lola for thrush. Speech check recommends pureed diet as very difficult to chew foods - may need to upgrade is not liking pureed consistency. Platelets decreased to 20K. Monitor. Give platelet pack. Hemoglobin improved to 8.2 post transfusion yesterday. Sodium improvement to 134, with potassium and phos normal at 4.2 and 4.3 respectively. Continue IVF to NS with 20KCl and 20KPhos but decrease rate to 50cc/hr. BP improved. HR still in 115 range. Start Bladder retraining - possible discontinue Rivas in near future. Start Miralax daily to help bowel function - hold with loose stool. PT/OT consult to help improve strength. Can transfer to medical floor for continuation of care.
[2017-12-11] MEDS ORDERED: FALL RISK - PHARMACY CONSULT XX ONE (11:34)
[2017-12-11] MEDS: LEVOFLOXACIN PB 750 MG/150 ML BAG IV SCH (11:45)
--- NOTE | 2017-12-11 13:11 | CT Scan Report ---
Indication: slurred speech, PNA, occult malignancy? PROCEDURE: CT head/chest/abd/pelv wo con: Encounter: Initial Comparison: None CT head without contrast: Technique: Axial CT images through the head were performed without contrast. Iterative Reconstruction dose reducing technique was utilized. FINDINGS: The ventricles are of normal size, shape, and contour for the patient's age. There are scattered areas of low attenuation in the white matter which most likely represent changes from chronic microvascular ischemia. The brainstem, cerebellum, and cerebral hemispheres otherwise have a normal morphology and CT attenuation. There is no evidence of midline displacement. No hemorrhage, signs of acute territorial stroke, mass effect, mass lesions, or edema is evident. The visualized portions of the skull base, midface, and calvarium demonstrate no abnormality. Chronic appearing maxillary sinus disease. Small air-fluid level in the left maxillary sinus. Small mastoid effusions.. The tympanic and mastoid cavities appear normal. IMPRESSION: No acute intracranial abnormality or hemorrhage. Mild sinus disease. CT chest, abdomen and pelvis without contrast: Comparison: Chest x-ray from today Technique: Axial CT images were performed through the chest, abdomen and pelvis without intravenous contrast. Coronal and sagittal two-dimensional reformats. Automated Exposure Control and Iterative Reconstruction dose reducing techniques were utilized. Findings: Chest: Paraseptal emphysema in the right lung apex. There is dense masslike consolidation with air bronchograms present in the right upper lobe which measures 9.4 x 5.6 cm on axial image #31. There are loculated right pleural effusions. There is an additional area of spiculated mass or masslike consolidation in the right middle lobe in a subpleural location best seen on axial image #43 measuring 4.7 x 3 cm in size. There is bronchial wall thickening and interlobular septal thickening seen in the right middle and lower lobes with areas of bronchiectasis. Moderate to severe emphysema in both lungs. There is a small to moderate left pleural effusion also present. No pneumothorax. The central airways are patent. No axillary adenopathy. There is mediastinal adenopathy present with a paratracheal is no on image #27 measuring 1.7 cm in short axis dimension. Additional right hilar adenopathy which is difficult to measure on this noncontrast study. Heart size is normal. Trace pericardial effusion. Abdomen/pelvis: Irregular low-attenuation lesion in the inferior medial right lobe liver on image #81 measuring 3.1 cm in diameter. The gallbladder is contracted. The spleen is unremarkable. The pancreas is grossly normal. The adrenal glands are normal. Kidneys are unremarkable. No obvious abdominal or pelvic lymphadenopathy. Bladder is decompressed. There is moderate amount of free pelvic fluid. No obvious bowel obstruction. Small and large bowel are not well evaluated without contrast. Diffuse subcutaneous edema. Bone windows show scattered small areas of lucency within the spine. There is a larger lytic focus in the right aspect of the T12 vertebra with evidence of cortical breakthrough seen on axial image #59. This lesion measures 1.4 cm. Old healed right rib fractures. Impression: 1. Constellation of findings most consistent with a primary lung malignancy which may be within the right middle or right upper lobes with regional ranjith metastatic disease along with hepatic and osseous metastases. Image guided biopsy of the liver could be performed to obtain a tissue diagnosis. 2. Superimposed right-sided pneumonia with bilateral effusions. Findings were called to the ordering physician at 1305 on December 11, 2017. .
--- NOTE | 2017-12-11 15:39 | Progress Note ---
<Sharifa Duarte - Last Filed: 12/11/17 15:35> Oncology Subjective Sitting in chair. /children at bedside. Knows his name/where he is. Cannot name date. Continues w/ SOA w/ minimal exertion, low back pain. Denies fever/ chills. Exam Vital signs: Temperature 98.6 F 12/11/17 08:00 Pulse Rate 132 H 12/11/17 08:30 Respiratory Rate 22 12/11/17 14:54 Blood Pressure 123/90 H 12/11/17 08:00 Pulse Oximetry 95 12/11/17 14:54 - Constitutional no acute distress, well nourished, well developed - Routine HEENT Exam Head: Present: normocephalic Eye: Present: EOMI ENT: Present: mucous membranes dry - Routine Neck Exam Present: supple. Absent: lymphadenopathy - Routine Respiratory Exam Present: decreased breath sounds (crackles bibasilar), crackles - Routine Cardiovascular Exam Present: RRR, tachycardia - Routine Abdominal Exam Present: soft, non tender - Routine Extremities Exam Present: edema (1+ - 2+ pitting edema christopher. LE) - Routine Skin Exam Present: dry, pallor - Routine Neurological Exam Present: alert, normal speech - Routine Psychiatric Exam Present: normal affect Oncology Results - Labs CBC & Chem 7: 12/11/17 14:56 12/11/17 12:39 Labs: Short CBC 12/10/17 12/11/17 12/11/17 Range/Units 20:09 03:48 14:56 WBC 4.8 D 5.1 (4.5-11.0) T/MM3 Hgb 7.6 L 7.9 L 7.5 L (13.5-17.5) GM/DL Hct 23.2 L 22.1 L (41-53) % Plt Count 18 L* D 55 L D (130-400) T/MM3 BMP 12/10/17 12/11/17 12/11/17 20:09 03:48 12:39 Sodium 138 139 Potassium 3.4 L 3.5 L Chloride 108 H 108 H Carbon Dioxide 22 22 BUN 11.0 12.0 Creatinine 0.6 L 0.6 L 0.6 L Glucose 118 H 108 Calcium 10.7 H 11.5 H Liver Function 12/10/17 12/11/17 Range/Units 13:26 03:48 Total Bilirubin 1.30 (0.20-1.30) MG/DL GGT 249 H (12-64) U/L AST 75 H D (17-59) U/L ALT 67 (21-72) U/L Alkaline Phosphatase 475 H (38-126) U/L Albumin 2.2 L (3.5-5.0) G/DL - Impressions Date of Exam: 12/11/17 Ordering Provider: Didi Jolly MD Type of Exam(s): CT head/chest/abd/pelv wo con Reason for Exam(s): sluured speech, PNA, occult malignancy? Indication: slurred speech, PNA, occult malignancy? PROCEDURE: CT head/chest/abd/pelv wo con: Encounter: Initial Comparison: None CT head without contrast: Technique: Axial CT images through the head were performed without contrast. Iterative Reconstruction dose reducing technique was utilized. FINDINGS: The ventricles are of normal size, shape, and contour for the patient's age. There are scattered areas of low attenuation in the white matter which most likely represent changes from chronic microvascular ischemia. The brainstem, cerebellum, and cerebral hemispheres otherwise have a normal morphology and CT attenuation. There is no evidence of midline displacement. No hemorrhage, signs of acute territorial stroke, mass effect, mass lesions, or edema is evident. The visualized portions of the skull base, midface, and calvarium demonstrate no abnormality. Chronic appearing maxillary sinus disease. Small air-fluid level in the left maxillary sinus. Small mastoid effusions.. The tympanic and mastoid cavities appear normal. IMPRESSION: No acute intracranial abnormality or hemorrhage. Mild sinus disease. CT chest, abdomen and pelvis without contrast: Comparison: Chest x-ray from today Technique: Axial CT images were performed through the chest, abdomen and pelvis without intravenous contrast. Coronal and sagittal two-dimensional reformats. Automated Exposure Control and Iterative Reconstruction dose reducing techniques were utilized. Findings: Chest: Paraseptal emphysema in the right lung apex. There is dense masslike consolidation with air bronchograms present in the right upper lobe which measures 9.4 x 5.6 cm on axial image #31. There are loculated right pleural effusions. There is an additional area of spiculated mass or masslike consolidation in the right middle lobe in a subpleural location best seen on axial image #43 measuring 4.7 x 3 cm in size. There is bronchial wall thickening and interlobular septal thickening seen in the right middle and lower lobes with areas of bronchiectasis. Moderate to severe emphysema in both lungs. There is a small to moderate left pleural effusion also present. No pneumothorax. The central airways are patent. No axillary adenopathy. There is mediastinal adenopathy present with a paratracheal is no on image #27 measuring 1.7 cm in short axis dimension. Additional right hilar adenopathy which is difficult to measure on this noncontrast study. Heart size is normal. Trace pericardial effusion. Abdomen/pelvis: Irregular low-attenuation lesion in the inferior medial right lobe liver on image #81 measuring 3.1 cm in diameter. The gallbladder is contracted. The spleen is unremarkable. The pancreas is grossly normal. The adrenal glands are normal. Kidneys are unremarkable. No obvious abdominal or pelvic lymphadenopathy. Bladder is decompressed. There is moderate amount of free pelvic fluid. No obvious bowel obstruction. Small and large bowel are not well evaluated without contrast. Diffuse subcutaneous edema. Bone windows show scattered small areas of lucency within the spine. There is a larger lytic focus in the right aspect of the T12 vertebra with evidence of cortical breakthrough seen on axial image #59. This lesion measures 1.4 cm. Old healed right rib fractures. Impression: 1. Constellation of findings most consistent with a primary lung malignancy which may be within the right middle or right upper lobes with regional ranjith metastatic disease along with hepatic and osseous metastases. Image guided biopsy of the liver could be performed to obtain a tissue diagnosis. 2. Superimposed right-sided pneumonia with bilateral effusions. Findings were called to the ordering physician at 1305 on December 11, 2017. . Assessment and Plan Assessment and Plan: Assessment 1. Pancytopenia with decreased WBC, HGB, and platelets. CT C/A/P shows constellation of findings consistent w/ likely primary lung malignancy w/ ranjith metastatic disease and hepatic and osseous metastases. Discussed w/ Dr. Galarza and Dr. Fofana-liver biopsy indicated to obtain tissue diagnosis. 2. sepsis/pneumonia 3. COPD 4. rheumatoid arthritis- treated with embryl and Immuran. pancytopenia could be related to Immuran. This is currently on hold. 5. Tobacco use. Plan Discussed findings w/ patient, , son, and daughter. Likely metastatic lung cancer, but unable to give definitive diagnosis without biopsy/tissue sample. Informed is metastatic disease- whatever the underlying cancer, will not be able to cure because of extensive metastatic findings. Option is comfort / palliative care or biopsy to determine cancer type and then look at possible treatment options. Patient and desire definitive diagnosis. Will give 1 u platelets, then do stat CBC. If platelets > 50K, will proceed with liver biopsy. Dr. Galarza will see patient later today. - Time Spent With Patient Total time spent is greater than 50% in coordination of care (as documented) at patient's floor/unit and/or counseling patient: 25 - 35 minutes <Davy Galarza - Last Filed: 12/11/17 17:58> Exam Vital signs: Temperature 98.6 F 12/11/17 08:00 Pulse Rate 118 H 12/11/17 17:00 Respiratory Rate 19 12/11/17 17:00 Blood Pressure 115/72 12/11/17 17:00 Pulse Oximetry 97 12/11/17 17:00 Oncology Results - Labs CBC & Chem 7: 12/11/17 14:56 12/11/17 12:39 Labs: Short CBC 12/10/17 12/11/17 12/11/17 Range/Units 20:09 03:48 14:56 WBC 4.8 D 5.1 (4.5-11.0) T/MM3 Hgb 7.6 L 7.9 L 7.5 L (13.5-17.5) GM/DL Hct 23.2 L 22.1 L (41-53) % Plt Count 18 L* D 55 L D (130-400) T/MM3 BMP 12/10/17 12/11/17 12/11/17 20:09 03:48 12:39 Sodium 138 139 Potassium 3.4 L 3.5 L Chloride 108 H 108 H Carbon Dioxide 22 22 BUN 11.0 12.0 Creatinine 0.6 L 0.6 L 0.6 L Glucose 118 H 108 Calcium 10.7 H 11.5 H Liver Function 12/10/17 12/11/17 Range/Units 13:26 03:48 Total Bilirubin 1.30 (0.20-1.30) MG/DL GGT 249 H (12-64) U/L AST 75 H D (17-59) U/L ALT 67 (21-72) U/L Alkaline Phosphatase 475 H (38-126) U/L Albumin 2.2 L (3.5-5.0) G/DL Assessment and Plan Assessment and Plan: Patient examined, Chart reviewed. Plan of care developed in conjunction with Yovana Duarte. CT findings suggesting lung cancer and LDH and lesions suggest small cell. This is treatable but need to get diagnosis MANISHA. Liver would be accessible and will give platelets and get biopsy today. Discussed with Dr. Jolly. - Time Spent With Patient Total time spent is greater than 50% in coordination of care (as documented) at patient's floor/unit and/or counseling patient:
[2017-12-11] MEDS ORDERED: LIDOCAINE 1% (10mg/ml) 5ml PF SDV ONE (15:48)
--- NOTE | 2017-12-11 16:55 | Ultrasound Report ---
Indication:LIVER MASS Procedure:US biopsy liver MONITORED IV SEDATION: The patient was given 1 mg Versed and 50 mcg fentanyl intravenously . Moderate sedation was administered by the sedation nurse under the supervision of the radiologist. The patient was continuously monitored with oxygen saturation, heart rate, ECG rhythm, and blood pressure throughout the administration of the sedation and throughout the procedure. There is no complication. Total intra-procedural sedation time was approximately 10 minutes. LIVER MASS BIOPSY WITH ULTRASOUND GUIDANCE: After discussing the details of the procedure, including the risks, the patient wished to proceed. Informed consent was obtained. Using aseptic technique, local lidocaine anesthetic, and ultrasound guidance throughout, four passes using an 18-gauge x 2.3 cm throw core Biopince biopsy needle were performed to obtain multiple tissue samples of the lesion in the medial right lobe of the liver. The tissue samples were placed in formalin and sent to lab for the requested studies. There was no complication. The patient tolerated this procedure well. Following this, the patient was taken back to his room in the CCU for continued monitoring. Impression: Successful core biopsy of the lesion located in the medial right lobe of the liver. Jace Becker RPA/COSMO performed this under my personal supervision. .
[2017-12-11] MEDS ORDERED: FentaNYL 100 MCG/2 ML INJECTION IVP ONE (17:55)
[2017-12-11] MEDS ORDERED: MIDAZOLAM 2mg/2ml INJECTION IVP ONE (17:55)
[2017-12-11] MEDS: NS 1,000 ML IV SCH (18:29)
[2017-12-12] MEDS: ALBUTEROL/IPRATROPIUM 2.5mg-0.5mg/3ml NEB AEROSOL SCH ×6 (00:17→19:55)
[2017-12-12] MEDS: CEFEPIME 1 GM in NS 50 ML IV SCH (00:59)
[2017-12-12] MEDS: HYDROCODONE/APAP 5mg/325mg TABLET PO PRN (03:02)
[2017-12-12] MEDS: CLOTRIMAZOLE 10 MG TROCHE MM SCH ×5 (08:37→20:14)
[2017-12-12] MEDS: NICOTINE 21 MG PATCH TD SCH (08:37)
[2017-12-12] MEDS: POLYETHYL GLYCOL 3350 17gm PACKET PO SCH (08:38)
[2017-12-12] MEDS: SALINE 0.65% NASAL SPRAY 44 ML BOTTLE EA NOSTRIL SCH ×4 (08:38→20:15)
[2017-12-12] MEDS: NICOTINE PATCH REMOVAL TD SCH (08:38)
--- NOTE | 2017-12-12 09:06 | Progress Note ---
Oncology Subjective No problems from the liver biopsy yesterday. He is having continued cough and shortness of breath. He continues to have joint pain and weakness. Rivas catheter is in place. Review of systems: Gen.: Negative for fever or chills, positive malaise Eyes: Negative eye discharge, eye pain ENT: Negative for nosebleeds, mouth sores positive for thrush Lymph: Negative enlarged lymph nodes, no night sweats Respiratory: Positive for cough, shortness of breath, negative for hemoptysis, Cardiac: Negative for chest pain, palpitations, or positive swelling GI: Negative for nausea, negative for vomiting, negative for diarrhea, positive for abdominal pain Genitourinary: Rivas catheter in place Musculoskeletal: Positive for weakness, positive for joint pain Neurologic: Negative for headache, negative for focal weakness, negative for numbness Exam Vital signs: Temperature 97.9 F 12/12/17 08:00 Pulse Rate 124 H 12/12/17 08:42 Respiratory Rate 17 12/12/17 08:42 Blood Pressure 112/74 12/12/17 08:42 Pulse Oximetry 94 12/12/17 08:42 - Constitutional mild distress, cooperative - Routine HEENT Exam Head: Present: normocephalic ENT: Present: mucous membranes moist Throat: other (Mycelex lola currently being used. Thrush is improved) - Routine Neck Exam Present: supple. Absent: lymphadenopathy - Routine Respiratory Exam Present: decreased breath sounds, rhonchi - Routine Cardiovascular Exam Present: RRR, no murmur - Routine Abdominal Exam Present: soft, tenderness (right upper quadrant of liver), non distended - Routine Extremities Exam Present: edema (2+). Absent: cyanosis, clubbing - Routine Back/Spine/Pelvis Exam Comments: Multiple joints with arthritic deformity and enlargement - Routine Skin Exam Present: dry, warm - Routine Neurological Exam Present: alert, CN II-XII intact - Routine Psychiatric Exam Present: normal affect Oncology Results - Labs CBC & Chem 7: 12/12/17 06:48 12/12/17 06:48 Labs: Short CBC 12/11/17 12/11/17 12/11/17 Range/Units 14:56 23:53 23:53 WBC 5.1 (4.5-11.0) T/MM3 Hgb 7.5 L 7.1 L (13.5-17.5) GM/DL Hct 22.1 L (41-53) % Plt Count 55 L D 34 L D (130-400) T/MM3 12/12/17 Range/Units 06:48 WBC 3.5 L (4.5-11.0) T/MM3 Hgb 7.7 L (13.5-17.5) GM/DL Hct 23.2 L (41-53) % Plt Count 33 L (130-400) T/MM3 BMP 12/11/17 12/12/17 12:39 06:48 Sodium 144 Potassium 3.3 L Chloride 113 H Carbon Dioxide 23 BUN 19.0 D Creatinine 0.6 L 1.0 D Glucose 107 Calcium 12.2 H Liver Function 12/12/17 Range/Units 06:48 Total Bilirubin 1.00 (0.20-1.30) MG/DL AST 60 H (17-59) U/L ALT 56 (21-72) U/L Alkaline Phosphatase 435 H (38-126) U/L Albumin 2.1 L (3.5-5.0) g/dL Laboratory Tests 12/10/17 12/10/17 12/10/17 03:58 04:00 13:26 WBC Hgb Plt Count Sodium Potassium Chloride Carbon Dioxide Creatinine Total Bilirubin 1.50 H GGT 249 H AST ALT Alkaline Phosphatase 513 H Lactate Dehydrogenase 3101 H Total Protein Albumin Plasma Lactate 12/10/17 12/11/17 12/11/17 15:57 03:48 03:48 WBC 4.8 D Hgb Plt Count 18 L* D Sodium Potassium Chloride Carbon Dioxide Creatinine Total Bilirubin GGT AST ALT Alkaline Phosphatase 475 H Lactate Dehydrogenase Total Protein Albumin Plasma Lactate 2.7 H 12/11/17 12/12/17 12/12/17 14:56 06:48 06:48 WBC 3.5 L Hgb 7.7 L Plt Count 55 L D 33 L Sodium 144 Potassium 3.3 L Chloride 113 H Carbon Dioxide 23 Creatinine 1.0 D Total Bilirubin 1.00 GGT AST 60 H ALT 56 Alkaline Phosphatase 435 H Lactate Dehydrogenase Total Protein 4.7 L Albumin 2.1 L Plasma Lactate - Impressions Call from Dr. Campos. Liver lesion is malignant. It is compatible with small cell lung cancer. Special stains for this will not be available Thursday. Assessment and Plan Assessment and Plan: 1. Malignant process with lesions and lung, liver, bone, elevated LDH, bone marrow involvement and thrombocytopenia and anemia. Preliminary pathology is compatible with small cell lung cancer and elevated LDH, pattern presentation, bone marrow involvement with thrombocytopenia also this diagnosis. Will discuss with family later today but based on how sick the patient is and multiple organs that are being compromised, I feel that we need to address urgent treatment directed toward small cell neuroendocrine carcinoma based on malignancy in liver and IHC for confirmation will not be available for another 2 to 2 1/2 days. Will discuss with family and Dr. Ying. Check for uric acid elevation, repeat LDH and Phos. Start allopurinol in anticipation of therapy. 2. 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 Pneumonia with culture growing Pseudomonas, MSSA, Hemophilus influenza, and yeast. Presented with Sepsis with elevated procalciton. Improving. 4. RA on Embryl Immuran. 5. Severe deconditioning Recommendations: Discuss therapy for small cell. Etoposide is in very short supply. We have carboplatin and Irenotecan that we can use to start therapy and that is an approved regimen for extensive stage small cell cancer. Will discuss with family and consider starting therapy soon. Continue antibiotics Blood and platelets support. - Time Spent With Patient Total time spent is greater than 50% in coordination of care (as documented) at patient's floor/unit and/or counseling patient: 25 - 35 minutes
[2017-12-12] MEDS: NS 1,000 ML IV SCH (11:24)
[2017-12-12] MEDS: LEVOFLOXACIN PB 750 MG/150 ML BAG IV SCH (11:26)
--- NOTE | 2017-12-12 11:27 | Pharmacy Consult-Antibiotics ---
Pharmacy Consult-Vancomycin - Laboratory Information WBC 3.5 T/MM3 (4.5-11.0) L 12/12/17 06:48 BUN 19.0 MG/DL (9-20) D 12/12/17 06:48 Creatinine 1.0 mg/dL (0.8-1.5) D 12/12/17 06:48 Procalcitonin 4.09 NG/ML H* 12/10/17 15:57 Vancomycin Trough 40.61 UG/ML (15-20) H* 12/12/17 06:48 - Consult Information Vancomycin: day 6 Patient's low urine output, critically high trough level = 40.61 mcg/ml, and increase in SCr from yesterday 12/11/17 @ 1239 SCr= 0.6 mg/dL; 12/12/17 0648 SCr= 1.0, suggest that patient has acute renal failure. Will give no vancomycin today. Will obtain a random Vancomycin level with tomorrow morning's labs. If tomorrow's Vanco level is less than 20 mcg/ml will give Vancomycin 1,750 mg IV q24h starting 12/12/17 @0800. Thank you, Mitali Anderson [facility]
[2017-12-12] MEDS ORDERED: SODIUM BICARBONATE 100 MEQ in D5W 1,000 ML IV SCH (14:00)
[2017-12-12] MEDS ORDERED: FUROSEMIDE 20 MG/2 ML INJECTION IVP ONE (14:06)
[2017-12-12] MEDS: ALLOPURINOL 300 MG TABLET PO SCH (14:14)
[2017-12-12] MEDS: SODIUM BICARBONATE 100 MEQ in D5W 1,000 ML IV SCH (14:46)
--- NOTE | 2017-12-12 19:03 | Progress Note ---
- Date 12/12/17 Subjective: F/U: Sepsis, pneumonia Doing fair this evening. Feels tired and weak. Breathing short, cough/ congestion varies. Oral drive decreased (eating about 10% of meals). Some nausea. Objective Vital signs: Temperature 98.7 F 12/12/17 13:30 Pulse Rate 123 H 12/12/17 16:30 Respiratory Rate 21 12/12/17 16:30 Blood Pressure 119/71 12/12/17 16:30 Pulse Oximetry 94 12/12/17 16:30 Height/Weight/BMI: Height 1.7 m Weight 73.7 kg Body Mass Index 21.4 - Constitutional Present: mild distress, well nourished, well developed, cooperative, other ( Appears tired and weak ) - Routine HEENT Exam Head: Present: normocephalic, atraumatic Eye: Present: EOMI, PERRL ENT: Present: mucous membranes dry - Routine Respiratory Exam Present: decreased breath sounds, respiratory distress (Shallow breathing), distant breath sounds, diminished air movement - Routine Cardiovascular Exam Present: no murmur, tachycardia - Routine Abdominal Exam Present: soft, non distended, non tender. Absent: normoactive bowel sounds - Routine Extremities Exam Present: pulses intact. Absent: cyanosis, clubbing - Routine Musculoskeletal Exam Musculoskeletal: Present: no clubbing or cyanosis - Routine Skin Exam Present: dry, warm - Routine Neurological Exam Present: alert, CN II-XII intact, vision grossly intact, hearing grossly intact. Absent: motor deficit, altered mental status - Routine Psychiatric Exam Present: normal affect, normal thought process, cooperative Results - Labs CBC & Chem 7: 12/12/17 06:48 12/12/17 06:48 Microbiology Results: Microbiology 12/10/17 16:00 Peripheral/Iv Start Blood Culture - Preliminary No Growth After 2 Days 12/10/17 15:57 Peripheral/Iv Start Blood Culture - Preliminary No Growth After 2 Days 12/07/17 12:45 Sputum, Expectorated Gram Stain - Final 12/07/17 12:45 Sputum, Expectorated Sputum Culture - Final Pseudomonas aeruginosa Haemophilus influenzae Staphylococcus aureus Normal Resp Pallavi incl. Yeast 12/07/17 18:13 Urine Legionella Urinary Antigen - Final 12/07/17 18:13 Urine Streptococcus pneumoniae Antigen (M - Final Assessment and Plan (1) Septic shock Current visit: Yes Status: Acute (2) Pneumonia Current visit: Yes Status: Acute Assessment and Plan: IMPRESSION Sepsis secondary to Right sided pneumonia Septic shock based on lactate of 4.5 (per CMS) Severe sepsis based on 2016 Surviving Sepsis Guidelines Organ dysfunction = MAP <70, hyperbilirubinemia (2.4), thrombocytopenia ( 16) SOFA on admission = 7, presumed baseline of 0 Pneumonia -right upper lobe and right lower lobe-sputum positive for Pseudomonas and MSSA Acute Hypoxia -currently on 2 L Malignant process with lesions and lung, liver, bone, elevated LDH, bone marrow involvement and thrombocytopenia and anemia. 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 Macrocytic anemia Rheumatoid arthritis Immunocompromised Chronic antritis Tobacco dependency Encephalopathy Sinus tachycardia PLAN Continue levofloxacin and vancomycin for antimicrobial coverage. Dr Galarza considering initiation of chemotherapy. Discussed with Dr Galarza about patient significantly declined status-concern currently too ill to start chemo. Worry that a large component of patient's acute problems are due to his cancerous process - uncertain if will make much gains without treating cancer, but uncertain how well he could tolerate chemo. Ultimately decided to wait until final path report returns before initiating chemo. Dr Galarza starting treatments to help protect from tumor lysis. IVF change to D5W with 2amps Bicarb at 75 cc/hr to alkalinize urine. Encourage oral intake. Monitor lab. Time spent with patient care 25 minutes. Case discussed with CCU nursing, Dr Galarza, and family. DVT Prophylaxis: SCD's Resuscitation Status: Full Code - Time spent with patient Time with patient PN: 25 minutes - Physician Narrative Physician: Wesley Vivar MD Narrative: Date: 12/12/17 Time: 1900 Hospital Course Summary Disclaimer: The visit summary below is not to be considered part of the above Progress Note. Hospital Course: 12/07/17 Admit, inpatient status, to CCU; Patient is critically ill. Dr. Vivar attending. Septic shock based on CMS and Severe Sepsis based on Surviving Sepsis He received full 30 mL/kg bolus in ED. If unable to keep MAP >65, will need to start norepinephrine, which would indicate shock based on 2016 rec. Initial lactate was 4.5; if lactate is still elevated >4 on recheck, this would also indicate shock based on 2016 recommendations. Blood cultures already drawn. Repeat physical exam done. Repeat procalcitonin in am. Sinus tachycardia has improved after fluid boluses, from 138-105. Right sided pneumonia in an immunocompromised patient with significant smoking history. Cefepime was started in the ED -- will continue with this and add vancomycin and levofloxacin d/t immunocompromised state. Check for strep pneumo and legionella. Check sputum culture. Consult Dr. Mckinney; suspect he may require additional respiratory intervention and with smoking hx likely has underlying COPD. Acapella, DuoNeb. Ask RT to provide tobacco cessation information. Nicotine patch ordered. Hold RA medications including Enbrel & Imuran. Pancytopenia Suspect d/t sepsis. If no improvement in next few days consider heme consultation. Platelets only 16 on admission. Will give platelet pack x1. Lovenox is contraindicated. SCD for DVT prevention. Macrocytic anemia - check iron studies, folate, vitamin B12. Hyperbilirubinemia Suspect d/t sepsis. Hepatomegaly and RUQ tenderness. He had liver sonogram in Aug, 2017 which was normal. Check INR. Hyponatremia and hypercalcemia Suspect d/t dehydration. Continue IVF and check in am. Advanced directives None. Requests full resuscitation. 12/08/17 Continue with levofloxacin, cefepime and vancomycin for pulmonary coverage. Neb treatments and acapella to continue. Monitor saturations and work of breathing - on 2L currently. Will have speech check swallow secondary to coughing with swallow. Hemoglobin decreased to 6.7 - transfusion initiated. Iron/B12/Folate tests pending. Platelets increased to 30K. Monitor. No Lovenox due to thrombocytopenia. Sodium with slight improvement to 128, but potassium decreased to 3.7. Will change IVF to NS with 20KCl and 20KPhos and decrease rate to 75cc/hr. BP improved. Recheck CMP, Mg, Phos, Procalcitonin, and CBC secondary to resolving septic shock. Continues to need close nursing care and support, continue CCU monitoring. 12/09/17 Continue with levofloxacin, cefepime and vancomycin for pulmonary coverage. Neb treatments and acapella to continue. Monitor saturations and work of breathing - on 2L currently. Start Mycelex lola for thrush. Speech check recommends pureed diet as very difficult to chew foods - may need to upgrade is not liking pureed consistency. Platelets decreased to 20K. Monitor. Give platelet pack. Hemoglobin improved to 8.2 post transfusion yesterday. Sodium improvement to 134, with potassium and phos normal at 4.2 and 4.3 respectively. Continue IVF to NS with 20KCl and 20KPhos but decrease rate to 50cc/hr. BP improved. HR still in 115 range. Start Bladder retraining - possible discontinue Rivas in near future. Start Miralax daily to help bowel function - hold with loose stool. PT/OT consult to help improve strength. Can transfer to medical floor for continuation of care. 12/10/17 The patient became confused last night and was pulling off his oxygen and pulled out his IV. He is more calm at this time but is still confused. With his severity of illness, will transfer back to intensive care when a bed is open. In the meantime will have his nurse stay close to his room and obtain continuous oximetry. Dr. Galarza was called and consulted regarding his pancytopenia. We'll check PTH regarding hypercalcemia. His hypercalcemia is likely worse than it appears since he also has hypoalbuminemia. Hold IV fluids for now. He is 9 L up on fluids. May require diuresis. Continue Rivas catheter for now. Check ammonia level regarding altered mental status. Repeat CBC and CMP tomorrow. Continue with levofloxacin, cefepime and vancomycin for pneumonia with immunosuppression. Neb treatments and acapella to continue. Monitor saturations and work of breathing - now requiring 4 L PT/OT consult. 12/11/17 The patient had recurrence of elevated lactate yesterday despite continued treatment with triple antibiotics. Heart rate was back up to 130. The patient was given IV fluids. This morning hemoglobin is dropped to 7.9 and platelets are 18,000. Discussed with Dr. Galarza and we will give 1 platelet pack and 1 unit of blood. There is concern for occult malignancy and we will obtain a CT head, chest, abdomen and pelvis all without contrast today. Regarding his elevated calcium, PTH was low. Await results of CAT scans. Regarding Pseudomonas and MSSA pneumonia, continue Levaquin. Stop cefepime. Continue vancomycin for now until blood cultures have returned. 12/12/17 Continue levofloxacin and vancomycin for antimicrobial coverage. Dr Galarza considering initiation of chemotherapy. Discussed with Dr Galarza about patient significantly declined status-concern currently too ill to start chemo. Worry that a large component of patient's acute problems are due to his cancerous process - uncertain if will make much gains without treating cancer, but uncertain how well he could tolerate chemo. Ultimately decided to wait until final path report returns before initiating chemo. Dr Galarza starting treatments to help protect from tumor lysis. IVF change to D5W with 2amps Bicarb at 75cc/hr to alkalinize urine.
[2017-12-12] MEDS: MORPHINE SULFATE 2mg INJECTION IVP PRN (22:01)
[2017-12-13] MEDS: ALBUTEROL/IPRATROPIUM 2.5mg-0.5mg/3ml NEB AEROSOL SCH ×6 (00:27→21:15)
[2017-12-13] MEDS: MORPHINE SULFATE 2mg INJECTION IVP PRN ×4 (04:22→18:01)
[2017-12-13] MEDS: SODIUM BICARBONATE 100 MEQ in D5W 1,000 ML IV SCH ×3 (04:26→17:08)
[2017-12-13] MEDS: ALLOPURINOL 300 MG TABLET PO SCH (09:17)
[2017-12-13] MEDS: POLYETHYL GLYCOL 3350 17gm PACKET PO SCH (09:18)
[2017-12-13] MEDS: CLOTRIMAZOLE 10 MG TROCHE MM SCH ×5 (09:18→20:02)
[2017-12-13] MEDS: NICOTINE 21 MG PATCH TD SCH (09:18)
[2017-12-13] MEDS: NICOTINE PATCH REMOVAL TD SCH (09:19)
[2017-12-13] MEDS: SALINE 0.65% NASAL SPRAY 44 ML BOTTLE EA NOSTRIL SCH ×4 (09:19→20:02)
[2017-12-13] MEDS ORDERED: NS FLUSH BAG 500ml IV PRN ×2 (09:27→10:04)
[2017-12-13] MEDS ORDERED: FUROSEMIDE 20 MG/2 ML INJECTION IVP ONE (09:29)
[2017-12-13] MEDS ORDERED: SPIRONOLACTONE 25 MG TABLET PO ONE (09:30)
--- NOTE | 2017-12-13 10:26 | Progress Note ---
Oncology Subjective Feels better today. Continues with cough. Some difficulty with confusion. Review of systems: Gen.: Negative for fever or chills, positive malaise Eyes: Negative eye discharge, eye pain ENT: Negative for nosebleeds, mouth sores Lymph: Negative enlarged lymph nodes, no night sweats Respiratory: Positive for cough, shortness of breath, negative hemoptysis, Cardiac: Negative for chest pain, palpitations, or swelling GI: Negative for nausea, negative for vomiting, negative for diarrhea Genitourinary: Rivas Musculoskeletal: Positive for weakness, positive for joint pain Neurologic: Negative for headache, negative for focal weakness, negative for numbness Exam Vital signs: Temperature 98.5 F 12/13/17 08:00 Pulse Rate 113 H 12/13/17 09:00 Respiratory Rate 27 H 12/13/17 09:00 Blood Pressure 133/80 12/13/17 09:00 Pulse Oximetry 96 12/13/17 09:00 - Constitutional no acute distress - Routine HEENT Exam Head: Present: normocephalic ENT: Present: mucous membranes moist - Routine Neck Exam Present: supple. Absent: lymphadenopathy - Routine Respiratory Exam Present: decreased breath sounds, rhonchi. Absent: accessory muscle use - Routine Cardiovascular Exam Present: RRR, no murmur - Routine Abdominal Exam Present: soft, tenderness (right upper quadrant). Absent: rebound, guarding - Routine Extremities Exam Present: edema (1+). Absent: cyanosis, clubbing - Routine Back/Spine/Pelvis Exam Comments: Swollen joints and ulnar deviation from rheumatoid arthritis - Routine Skin Exam Present: dry, warm - Routine Neurological Exam Present: alert, CN II-XII intact Strength good in ankle flexors - Routine Psychiatric Exam Present: normal affect Oncology Results - Labs CBC & Chem 7: 12/13/17 04:04 12/13/17 04:04 Labs: Short CBC 12/13/17 Range/Units 04:04 WBC 4.7 (4.5-11.0) T/MM3 Hgb 7.6 L (13.5-17.5) GM/DL Hct 22.6 L (41-53) % Plt Count 16 L* D (130-400) T/MM3 BMP 12/13/17 04:04 Sodium 144 Potassium 3.5 L Chloride 111 H Carbon Dioxide 26 BUN 25.0 H Creatinine 1.3 D Glucose 121 H Calcium 12.9 H Liver Function 12/13/17 Range/Units 04:04 Total Bilirubin 0.80 (0.20-1.30) MG/DL AST 51 (17-59) U/L ALT 48 (21-72) U/L Alkaline Phosphatase 439 H (38-126) U/L Albumin 2.0 L (3.5-5.0) g/dL Laboratory Tests 12/10/17 12/11/17 12/12/17 04:00 03:48 06:48 WBC Hgb Plt Count Band Neutrophils % Sodium Potassium Chloride Carbon Dioxide 23 BUN 19.0 D Creatinine 1.0 D Calcium 11.5 H 12.2 H Alkaline Phosphatase Lactate Dehydrogenase PTH Intact 13.5 L 12/12/17 12/13/17 12/13/17 06:48 04:04 04:04 WBC 4.7 Hgb 7.6 L Plt Count 16 L* D Band Neutrophils % 10.0 H D Sodium 144 Potassium 3.5 L Chloride 111 H Carbon Dioxide 26 BUN 25.0 H Creatinine 1.3 D Calcium 12.9 H Alkaline Phosphatase 439 H Lactate Dehydrogenase 1978 H 2177 H PTH Intact Assessment and Plan Assessment and Plan: 1. Malignant process with lesions and lung, liver, bone, elevated LDH, bone marrow involvement and thrombocytopenia and anemia. Preliminary pathology is compatible with small cell lung cancer and elevated LDH, pattern presentation, bone marrow involvement with thrombocytopenia also this diagnosis. Will discuss with family later today but based on how sick the patient is and multiple organs that are being compromised, I feel that we need to address urgent treatment directed toward small cell neuroendocrine carcinoma based on malignancy in liver and IHC for confirmation will not be available for another 2 to 2 1/2 days. Will discuss with family and Dr. Ying. Check for uric acid elevation, repeat LDH and Phos. Start allopurinol in anticipation of therapy. Calcium elevated and increasing. Renal function decreasing with creatinine 1.3 and elevated BUN. He is not a good candidate or hydration to treat the hypercalcemia and PTH is low suggesting this is hypercalcemia of malignancy. We'll use Zometa. We'll also obtain bone marrow biopsy to document bone marrow involvement. 2. 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 Dr. Vivar disorder platelets. 3. Pneumonia with culture growing Pseudomonas, MSSA, Hemophilus influenza, and yeast. Presented with Sepsis with elevated procalciton. Improving. 4. RA on Embryl Immuran. These medications have been discontinued 5. Severe deconditioning Recommendations: Probable small cell. Awaiting formal pathology. Will treat hypercalcemia with Zometa. Consider increasing fluids as BUN is increasing creatinine is increasing. Will discuss with Dr. Vivar. Continue antibiotics Blood and platelets support. Patient edentulous. Creat 1.3 CG GFR 56. Rapid rise in Creatinine. Will dose zometa at 3.0 because of declining renal function. - Time Spent With Patient Total time spent is greater than 50% in coordination of care (as documented) at patient's floor/unit and/or counseling patient: 25 - 35 minutes
[2017-12-13] MEDS ORDERED: ZOLEDRONIC ACID IV ONE (12:00)
--- NOTE | 2017-12-13 12:39 | Progress Note ---
- Date 12/13/17 Subjective: F/U: Sepsis, pneumonia Tired and weak this afternoon. Wants to be up in chair. More groggy-speaks with very short phrases. Still notes cough/congestion. Breathing short. More low back pain. Harder to take oral in. Objective Vital signs: Temperature 98.5 F 12/13/17 08:00 Pulse Rate 115 H 12/13/17 12:00 Respiratory Rate 17 12/13/17 12:15 Blood Pressure 133/80 12/13/17 09:00 Pulse Oximetry 97 12/13/17 12:15 Height/Weight/BMI: Height 1.7 m Weight 73.6 kg Body Mass Index 21.4 - Constitutional Present: moderate distress, well nourished, well developed, somnolent - Routine HEENT Exam Head: Present: normocephalic, atraumatic Eye: Present: EOMI, PERRL ENT: Present: mucous membranes dry - Routine Respiratory Exam Present: decreased breath sounds, rales, respiratory distress, rhonchi, distant breath sounds, diminished air movement - Routine Cardiovascular Exam Present: no murmur, tachycardia - Routine Abdominal Exam Present: soft, non distended, non tender. Absent: normoactive bowel sounds - Routine Extremities Exam Present: edema (+1 hands/feet bilaterally ), pulses intact. Absent: cyanosis, clubbing - Routine Musculoskeletal Exam Musculoskeletal: Present: no clubbing or cyanosis - Routine Skin Exam Present: dry, warm - Routine Neurological Exam Present: CN II-XII intact, altered mental status, moving all extremities, vision grossly intact, hearing grossly intact - Routine Psychiatric Exam Comments: Appears tire and somnolent Results - Labs CBC & Chem 7: 12/13/17 04:04 12/13/17 04:04 Microbiology Results: Microbiology 12/10/17 16:00 Peripheral/Iv Start Blood Culture - Preliminary No Growth After 2 Days 12/10/17 15:57 Peripheral/Iv Start Blood Culture - Preliminary No Growth After 2 Days 12/07/17 12:45 Sputum, Expectorated Gram Stain - Final 12/07/17 12:45 Sputum, Expectorated Sputum Culture - Final Pseudomonas aeruginosa Haemophilus influenzae Staphylococcus aureus Normal Resp Pallavi incl. Yeast 12/07/17 18:13 Urine Legionella Urinary Antigen - Final 12/07/17 18:13 Urine Streptococcus pneumoniae Antigen (M - Final Assessment and Plan (1) Septic shock Current visit: Yes Status: Acute (2) Pneumonia Current visit: Yes Status: Acute Assessment and Plan: IMPRESSION Sepsis secondary to Right sided pneumonia Septic shock based on lactate of 4.5 (per CMS) Severe sepsis based on 2016 Surviving Sepsis Guidelines Organ dysfunction = MAP <70, hyperbilirubinemia (2.4), thrombocytopenia ( 16) SOFA on admission = 7, presumed baseline of 0 Pneumonia -right upper lobe and right lower lobe-sputum positive for Pseudomonas and MSSA Acute Hypoxia -currently on 2 L Malignant process with lesions and lung, liver, bone, elevated LDH, bone marrow involvement and thrombocytopenia and anemia. 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 Macrocytic anemia Rheumatoid arthritis Immunocompromised Chronic antritis Tobacco dependency Encephalopathy Sinus tachycardia PLAN Continue levofloxacin and vancomycin for antimicrobial coverage. Increase rate of D5W with 2amps Bicarb to 100 cc/hr. Did give Lasix 20mg IV to help minimize edema and increase urine output. Zometa initiated by Dr Galarza to help hypercalcemia. Cautious oral intake secondary to somnolence. Continue pain control. Recheck CMP, Mg, CBC and CXR in am. Time spent with patient care 25 minutes. Case discussed with CCU nursing, Dr Galarza, and family. DVT Prophylaxis: SCD's Resuscitation Status: Full Code - Time spent with patient Time with patient PN: 25 minutes - Physician Narrative Physician: Wesley Vivar MD Narrative: Date: 12/13/17 Time: 1236 Hospital Course Summary Disclaimer: The visit summary below is not to be considered part of the above Progress Note. Hospital Course: 12/07/17 Admit, inpatient status, to CCU; Patient is critically ill. Dr. Vivar attending. Septic shock based on CMS and Severe Sepsis based on Surviving Sepsis He received full 30 mL/kg bolus in ED. If unable to keep MAP >65, will need to start norepinephrine, which would indicate shock based on 2016 rec. Initial lactate was 4.5; if lactate is still elevated >4 on recheck, this would also indicate shock based on 2016 recommendations. Blood cultures already drawn. Repeat physical exam done. Repeat procalcitonin in am. Sinus tachycardia has improved after fluid boluses, from 138-105. Right sided pneumonia in an immunocompromised patient with significant smoking history. Cefepime was started in the ED -- will continue with this and add vancomycin and levofloxacin d/t immunocompromised state. Check for strep pneumo and legionella. Check sputum culture. Consult Dr. Mckinney; suspect he may require additional respiratory intervention and with smoking hx likely has underlying COPD. Acapella, DuoNeb. Ask RT to provide tobacco cessation information. Nicotine patch ordered. Hold RA medications including Enbrel & Imuran. Pancytopenia Suspect d/t sepsis. If no improvement in next few days consider heme consultation. Platelets only 16 on admission. Will give platelet pack x1. Lovenox is contraindicated. SCD for DVT prevention. Macrocytic anemia - check iron studies, folate, vitamin B12. Hyperbilirubinemia Suspect d/t sepsis. Hepatomegaly and RUQ tenderness. He had liver sonogram in Aug, 2017 which was normal. Check INR. Hyponatremia and hypercalcemia Suspect d/t dehydration. Continue IVF and check in am. Advanced directives None. Requests full resuscitation. 12/08/17 Continue with levofloxacin, cefepime and vancomycin for pulmonary coverage. Neb treatments and acapella to continue. Monitor saturations and work of breathing - on 2L currently. Will have speech check swallow secondary to coughing with swallow. Hemoglobin decreased to 6.7 - transfusion initiated. Iron/B12/Folate tests pending. Platelets increased to 30K. Monitor. No Lovenox due to thrombocytopenia. Sodium with slight improvement to 128, but potassium decreased to 3.7. Will change IVF to NS with 20KCl and 20KPhos and decrease rate to 75cc/hr. BP improved. Recheck CMP, Mg, Phos, Procalcitonin, and CBC secondary to resolving septic shock. Continues to need close nursing care and support, continue CCU monitoring. 12/09/17 Continue with levofloxacin, cefepime and vancomycin for pulmonary coverage. Neb treatments and acapella to continue. Monitor saturations and work of breathing - on 2L currently. Start Mycelex lola for thrush. Speech check recommends pureed diet as very difficult to chew foods - may need to upgrade is not liking pureed consistency. Platelets decreased to 20K. Monitor. Give platelet pack. Hemoglobin improved to 8.2 post transfusion yesterday. Sodium improvement to 134, with potassium and phos normal at 4.2 and 4.3 respectively. Continue IVF to NS with 20KCl and 20KPhos but decrease rate to 50cc/hr. BP improved. HR still in 115 range. Start Bladder retraining - possible discontinue Rivas in near future. Start Miralax daily to help bowel function - hold with loose stool. PT/OT consult to help improve strength. Can transfer to medical floor for continuation of care. 12/10/17 The patient became confused last night and was pulling off his oxygen and pulled out his IV. He is more calm at this time but is still confused. With his severity of illness, will transfer back to intensive care when a bed is open. In the meantime will have his nurse stay close to his room and obtain continuous oximetry. Dr. Galarza was called and consulted regarding his pancytopenia. We'll check PTH regarding hypercalcemia. His hypercalcemia is likely worse than it appears since he also has hypoalbuminemia. Hold IV fluids for now. He is 9 L up on fluids. May require diuresis. Continue Rivas catheter for now. Check ammonia level regarding altered mental status. Continue with levofloxacin, cefepime and vancomycin for pneumonia with immunosuppression. Neb treatments and acapella to continue. Monitor saturations and work of breathing - now requiring 4 L PT/OT consult. 12/11/17 The patient had recurrence of elevated lactate yesterday despite continued treatment with triple antibiotics. Heart rate was back up to 130. The patient was given IV fluids. This morning hemoglobin is dropped to 7.9 and platelets are 18,000. Discussed with Dr. Galarza and we will give 1 platelet pack and 1 unit of blood. There is concern for occult malignancy and we will obtain a CT head, chest, abdomen and pelvis all without contrast today. Regarding his elevated calcium, PTH was low. Await results of CAT scans. Regarding Pseudomonas and MSSA pneumonia, continue Levaquin. Stop cefepime. Continue vancomycin for now until blood cultures have returned. 12/12/17 Continue levofloxacin and vancomycin for antimicrobial coverage. Dr Galarza considering initiation of chemotherapy. Discussed with Dr Galarza about patient significantly declined status-concern currently too ill to start chemo. Worry that a large component of patient's acute problems are due to his cancerous process - uncertain if will make much gains without treating cancer, but uncertain how well he could tolerate chemo. Ultimately decided to wait until final path report returns before initiating chemo. Dr Galarza starting treatments to help protect from tumor lysis. IVF change to D5W with 2amps Bicarb at 75cc/hr to alkalinize urine. 12/13/17 More somnolent and weak this afternoon. Oral drive decreased. Continue levofloxacin and vancomycin for antimicrobial coverage. Increase rate of D5W with 2amps Bicarb to 100 cc/hr. Did give Lasix 20mg IV to help minimize edema and increase urine output. Zometa initiated by Dr Galarza to help hypercalcemia. Cautious oral intake secondary to somnolence. Continue pain control.
[2017-12-13] MEDS: LEVOFLOXACIN PB 750 MG/150 ML BAG IV SCH (12:51)
--- NOTE | 2017-12-13 13:28 | Pulmonology Progress Note ---
Subjective Principal diagnosis: pneumonia Interval history: Pt sitting up in the chair, + cough with some spit, otherwise feeling ok. Exam Vital signs: Temperature 98.5 F 12/13/17 08:00 Pulse Rate 115 H 12/13/17 12:00 Respiratory Rate 17 12/13/17 12:15 Blood Pressure 133/80 12/13/17 09:00 Pulse Oximetry 97 12/13/17 12:15 Inpatient Medications: Generic Name Dose Route Start Last Admin Trade Name Freq PRN Reason Stop Dose Admin Hydrocodone Bitart/Acetaminophen 1 tab 12/07/17 11:21 12/12/17 03:02 [place] 5/325 PO 1 tab QID PRN Administration Pain Albuterol/Ipratropium 3 ml 12/07/17 16:00 12/13/17 12:14 Duoneb AEROSOL 3 ml Q4HR RANDALL Administration Allopurinol 300 mg 12/12/17 13:45 12/13/17 09:17 Zyloprim PO 300 mg DAILY RANDALL Administration Benzonatate 100 mg 12/07/17 12:48 Tessalon Perles PO TID PRN Cough Bisacodyl 10 mg 12/07/17 12:53 Dulcolax RECTALLY DAILY PRN Constipation Clotrimazole 10 mg 12/09/17 12:00 12/13/17 12:51 Mycelex Pj MM 10 mg 5XD RANDALL Administration Fluticasone Propionate 1 spray 12/07/17 11:25 Flonase EA NOSTRIL DAILY PRN PRN orders Levofloxacin/Dextrose 750 mg in 150 mls @ 100 mls/hr 12/07/17 11:21 12/13/17 12:51 Levaquin Premix IV 100 mls/hr Q24H RANDALL Administration Sodium Bicarbonate 100 meq/ 1,100 mls @ 75 mls/hr 12/12/17 14:00 12/13/17 04: 26 Dextrose IV 75 mls/hr .[id number] RANDALL Administration Vancomycin HCl 1,250 mg/ 250 mls @ 200 mls/hr 12/14/17 08:00 Sodium Chloride IV Q48H RANDALL Lorazepam 0.25 mg 12/07/17 12:48 12/13/17 04:22 Ativan Inj IVP 0.25 mg Q4H PRN Administration Air hunger/Anxiety Magnesium Hydroxide 30 ml 12/07/17 12:53 Mom PO DAILY PRN Constipation Morphine Sulfate 2 mg 12/07/17 12:47 12/13/17 11:50 Morphine Sulfate Inj IVP 2 mg Q2HR PRN Administration Pain Nicotine 21 mg 12/07/17 10:45 12/13/17 09:18 Nicoderm TD 21 mg DAILY RANDALL Administration Nicotine 1 removal 12/08/17 09:00 12/13/17 09:19 Nicotine Patch Removal TD 1 removal DAILY RANDALL Administration Ondansetron HCl 4 mg 12/07/17 11:21 Zofran IVP Q6H PRN Nausea Polyethylene Glycol 17 gm 12/09/17 11:00 12/13/17 09:18 Miralax PO 17 gm DAILY RANDALL Administration Potassium Chloride 20 meq 12/13/17 12:30 K-Dur 20 Meq Tablet PO BIDWM RANDALL Promethazine HCl/Codeine 5 ml 12/07/17 12:49 Phenergan + Codeine PO Q6HR PRN Cough Sodium Chloride 10 - 80 ml 12/07/17 08:43 12/11/17 23:59 Iv Flush IVF 50 ml PRN PRN Administration [place] Sodium Chloride 2 spray 12/08/17 10:15 12/13/17 09:19 [place] Nasal Moisturizing [place] EA NOSTRIL 2 spray QID RANDALL Administration Sodium Chloride 500 ml 12/11/17 10:29 Normal Saline IV PRN PRN Sodium Chloride 500 ml 12/13/17 09:27 Normal Saline IV PRN PRN Sodium Chloride 500 ml 12/13/17 10:04 Normal Saline IV PRN PRN Discontinued Medications Generic Name Dose Route Start Last Admin Trade Name Freq PRN Reason Stop Dose Admin Acetaminophen 650 mg 12/11/17 10:30 12/11/17 20:30 Tylenol PO 12/11/17 10:31 325 mg O ONE Administration Albuterol/Ipratropium 3 ml 12/07/17 11:00 12/07/17 16:44 Duoneb AEROSOL Not Given RTQID RANDALL Diphenhydramine HCl 50 mg 12/09/17 10:36 12/09/17 12:51 Benadryl PO 12/09/17 10:37 50 mg ONCE ONE Administration Diphenhydramine HCl 25 mg 12/11/17 10:29 12/11/17 20:30 Benadryl PO 12/11/17 10:30 25 mg ONCE ONE Administration Furosemide 20 mg 12/11/17 10:29 12/11/17 23:59 Lasix IVP 12/11/17 10:30 20 mg O ONE Administration Furosemide 20 mg 12/12/17 14:06 12/12/17 14:47 Lasix IVP 12/12/17 14:07 20 mg ONCE ONE Administration Furosemide 20 mg 12/13/17 09:29 12/13/17 11:51 Lasix IVP 12/13/17 09:30 20 mg ONCE ONE Administration Cefepime HCl 1 gm/ Sodium 100 mls @ 200 mls/hr 12/07/17 08:43 12/07/17 09:33 Chloride IV 12/07/17 09:12 Infused O ONE Infusion Sodium Chloride 1,000 mls @ 1,000 mls/hr 12/07/17 08:43 12/07/17 10:08 Normal Saline IV 12/07/17 09:42 Infused .Q1H ONE Infusion Sodium Chloride 1,000 mls @ 999.9 mls/hr 12/07/17 09:13 12/07/17 11:38 Normal Saline IV 12/07/17 10:12 Infused .Q1H ONE Infusion Cefepime HCl 1 gm/ Sodium 50 mls @ 100 mls/hr 12/07/17 16:00 12/12/17 00:59 Chloride IV Not Given Q6H RANDALL Sodium Chloride 1,000 mls @ 125 mls/hr 12/07/17 11:21 12/08/17 10:31 Normal Saline IV Infused .Q8H RANDALL Infusion Vancomycin HCl 1,250 mg/ 250 mls @ 200 mls/hr 12/08/17 02:00 12/09/17 18:58 Sodium Chloride IV Not Given Q12H RANDALL Vancomycin HCl 1,750 mg/ 500 mls @ 250 mls/hr 12/07/17 14:00 12/07/17 15:00 Sodium Chloride IV 12/07/17 14:01 Infused O ONE Infusion Sodium Chloride 500 mls @ 500 mls/hr 12/08/17 03:40 12/08/17 03:40 Normal Saline IV 12/08/17 04:39 Not Given .Q1H ONE Sodium Chloride 500 mls @ 500 mls/hr 12/08/17 05:30 12/08/17 05:17 Normal Saline IV 12/08/17 06:30 Not Given .Q1H RANDALL Potassium Chloride 20 meq/ 1,014.5455 mls @ 75 mls/hr 12/08/17 09:45 13:00 Potassium Phosphate 20 meq/ IV 0 mls/hr Sodium Chloride .[id number] RANDALL Infusion Potassium Chloride 20 meq/ 1,014.5455 mls @ 50 mls/hr 12/09/17 11:00 05:30 Potassium Phosphate 20 meq/ IV 0 mls/hr Sodium Chloride .[id number] RANDALL Infusion Vancomycin HCl 1,750 mg/ 500 mls @ 250 mls/hr 12/09/17 14:00 12/12/17 08:00 Sodium Chloride IV 12/12/17 07:30 Not Given Q12H RANDALL Sodium Chloride 1,000 mls @ 500 mls/hr 12/10/17 16:53 12/10/17 19:30 Normal Saline IV 12/10/17 18:52 Infused .Q2H ONE Infusion Sodium Chloride 1,000 mls @ 75 mls/hr 12/11/17 18:00 12/12/17 14:46 Normal Saline IV Infused .[id number] RANDALL Infusion Sodium Chloride 500 mls @ 250 mls/hr 12/11/17 15:45 12/11/17 18:20 Normal Saline IV 12/11/17 17:44 Infused .Q2H RANDALL Infusion Vancomycin HCl 1,750 mg/ 500 mls @ 250 mls/hr 12/13/17 08:00 Sodium Chloride IV 12/13/17 08:00 Q24H RANDALL Zoledronic Acid 3 mg in 75 mls @ 150 mls/hr 12/13/17 12:00 Zometa IV 12/13/17 12:29 O ONE Pharmacy Consult 1 each 12/11/17 11:34 Pharmacy Consult - Fall Risk XX 12/11/17 11:35 ONE TIME ONE Potassium Chloride 20 meq 12/12/17 13:58 12/12/17 14:14 K-Dur 20 Meq Tablet PO 12/12/17 13:59 20 meq O ONE Administration Sodium Chloride 500 ml 12/07/17 11:24 12/10/17 16:47 Normal Saline IV 500 ml PRN PRN Administration Sodium Chloride 500 ml 12/09/17 10:36 12/11/17 08:14 Normal Saline IV 500 ml PRN PRN Administration Sodium Chloride 500 ml 12/10/17 16:57 Normal Saline IV PRN PRN Spironolactone 12.5 mg 12/13/17 09:30 12/13/17 11:51 Aldactone PO 12/13/17 09:31 12.5 mg ONE TIME ONE Administration Vancomycin HCl 1 each 12/07/17 11:09 Pharmacy Consult - Vancomycin 12/07/17 11:10 O ONE Vancomycin HCl 1 each 12/07/17 11:21 Pharmacy Consult - Vancomycin 12/07/17 11:22 O ONE - Constitutional no acute distress, cachectic, cooperative - Routine HEENT Exam Head: Present: normocephalic, atraumatic Eye: Present: EOMI, PERRL ENT: Present: mucous membranes moist - Routine Neck Exam Present: supple, full ROM, trachea midline - Routine Respiratory Exam Present: rhonchi. Absent: patient mechanically ventilated - Routine Cardiovascular Exam Present: RRR, S1, S2, no murmur - Routine Abdominal Exam Present: soft, normoactive bowel sounds - Routine Extremities Exam Present: edema, non tender, full ROM. Absent: cyanosis, clubbing - Routine Back/Spine/Pelvis Exam Back/Spine: Present: full ROM - Routine Skin Exam Present: intact, dry - Routine Neurological Exam Present: alert, oriented X3, CN II-XII intact - Routine Psychiatric Exam Present: normal affect, normal thought process - Urinary Catheter Management Urethral Cath placed during this visit: yes Insertion date: 12/07/17 Insertion time: 19:45 Results - Laboratory Findings Laboratory: Laboratory Results - last 48 hr 12/10/17 12/11/17 12/11/17 20:09 10:29 10:29 WBC RBC Hgb Hct MCV MCH MCHC RDW Std Deviation Plt Count MPV Immature Gran % (Auto) Neut % (Auto) Lymph % (Auto) [place] % (Auto) Eos % (Auto) Baso % (Auto) Neut # (Auto) Lymph # (Auto) [place] # (Auto) Eos # (Auto) Baso # (Auto) Abs Immat Gran (auto) Neutrophils % (Manual) Band Neutrophils % Lymphocytes % (Manual) Reactive Lymphs % Monocytes % (Manual) Metamyelocytes % Myelocytes % Neutrophils # (Manual) Band Neutrophils # Lymphocytes # (Manual) Abs React Lymphs (Man) Monocytes # (Manual) Metamyelocytes # Myelocytes # Poikilocytosis Anisocytosis Macrocytosis Tear Drop Cells Ovalocytes Helmet Cells Schistocytes RBC Morph Comment Turbidity Sodium Potassium Chloride Carbon Dioxide Anion Gap BUN Creatinine GFR Calculation BUN/Creatinine Ratio Glucose Calculated Osmolality Uric Acid Calcium Phosphorus Magnesium Total Bilirubin Icterus Index AST ALT Alkaline Phosphatase Lactate Dehydrogenase Total Protein Albumin Globulin Albumin/Globulin Ratio Specimen Hemolysis Vancomycin Trough Random Vancomycin Blood Type O Positive Antibody Screen Negative Crossmatch ([facility]) See Detail Blood Product Request 1 unit pc issued 1 unit ppp issued 12/11/17 12/11/17 12/11/17 12:39 14:56 17:37 WBC 5.1 RBC 2.19 L Hgb 7.5 L Hct 22.1 L MCV 100.9 H MCH 34.2 H MCHC 33.9 RDW Std Deviation 70.8 H Plt Count 55 L D MPV 10.7 Immature Gran % (Auto) Not performed Neut % (Auto) Not performed Lymph % (Auto) Not performed [place] % (Auto) Not performed Eos % (Auto) Not performed Baso % (Auto) Not performed Neut # (Auto) Not performed Lymph # (Auto) Not performed [place] # (Auto) Not performed Eos # (Auto) Not performed Baso # (Auto) Not performed Abs Immat Gran (auto) Not performed Neutrophils % (Manual) 56.0 Band Neutrophils % 19.0 H Lymphocytes % (Manual) 13.0 L Reactive Lymphs % 1.0 H Monocytes % (Manual) 3.0 Metamyelocytes % 5.0 H Myelocytes % 3.0 H Neutrophils # (Manual) 2.9 Band Neutrophils # 1.0 Lymphocytes # (Manual) 0.7 L Abs React Lymphs (Man) 0.1 H Monocytes # (Manual) 0.2 Metamyelocytes # 0.3 Myelocytes # 0.2 Poikilocytosis 1+ Anisocytosis 3+ Macrocytosis 1+ Tear Drop Cells Ovalocytes 2+ Helmet Cells 1+ Schistocytes 1+ RBC Morph Comment Abnormal Turbidity Sodium Potassium Chloride Carbon Dioxide Anion Gap BUN Creatinine GFR Calculation BUN/Creatinine Ratio Glucose Calculated Osmolality Uric Acid Calcium Phosphorus Magnesium Total Bilirubin Icterus Index AST ALT Alkaline Phosphatase Lactate Dehydrogenase Total Protein Albumin Globulin Albumin/Globulin Ratio Specimen Hemolysis Vancomycin Trough Cancelled Random Vancomycin Blood Type Antibody Screen Crossmatch ([facility]) Blood Product Request 1 unit ppp issued 12/11/17 12/11/17 12/12/17 23:53 23:53 06:48 WBC RBC Hgb 7.1 L Hct MCV MCH MCHC RDW Std Deviation Plt Count 34 L D MPV Immature Gran % (Auto) Neut % (Auto) Lymph % (Auto) [place] % (Auto) Eos % (Auto) Baso % (Auto) Neut # (Auto) Lymph # (Auto) [place] # (Auto) Eos # (Auto) Baso # (Auto) Abs Immat Gran (auto) Neutrophils % (Manual) Band Neutrophils % Lymphocytes % (Manual) Reactive Lymphs % Monocytes % (Manual) Metamyelocytes % Myelocytes % Neutrophils # (Manual) Band Neutrophils # Lymphocytes # (Manual) Abs React Lymphs (Man) Monocytes # (Manual) Metamyelocytes # Myelocytes # Poikilocytosis Anisocytosis Macrocytosis Tear Drop Cells Ovalocytes Helmet Cells Schistocytes RBC Morph Comment Turbidity Sodium Potassium Chloride Carbon Dioxide Anion Gap BUN Creatinine GFR Calculation BUN/Creatinine Ratio Glucose Calculated Osmolality Uric Acid Calcium Phosphorus Magnesium Total Bilirubin Icterus Index AST ALT Alkaline Phosphatase Lactate Dehydrogenase Total Protein Albumin Globulin Albumin/Globulin Ratio Specimen Hemolysis Vancomycin Trough 40.61 H* Random Vancomycin Blood Type Antibody Screen Crossmatch ([facility]) Blood Product Request 12/12/17 12/12/17 12/12/17 06:48 06:48 06:48 WBC 3.5 L RBC 2.30 L Hgb 7.7 L Hct 23.2 L MCV 100.9 H MCH 33.5 MCHC 33.2 RDW Std Deviation 68.8 H Plt Count 33 L MPV 10.0 Immature Gran % (Auto) Neut % (Auto) Lymph % (Auto) [place] % (Auto) Eos % (Auto) Baso % (Auto) Neut # (Auto) Lymph # (Auto) [place] # (Auto) Eos # (Auto) Baso # (Auto) Abs Immat Gran (auto) Neutrophils % (Manual) 61.0 Band Neutrophils % 23.0 H Lymphocytes % (Manual) 8.0 L Reactive Lymphs % Monocytes % (Manual) Metamyelocytes % 7.0 H Myelocytes % 1.0 H Neutrophils # (Manual) 2.1 Band Neutrophils # 0.8 Lymphocytes # (Manual) 0.3 L Abs React Lymphs (Man) Monocytes # (Manual) Metamyelocytes # 0.2 Myelocytes # 0.0 Poikilocytosis 1+ Anisocytosis 3+ Macrocytosis Tear Drop Cells 1+ Ovalocytes Helmet Cells Schistocytes 1+ RBC Morph Comment Abnormal Turbidity < 20 Sodium 144 Potassium 3.3 L Chloride 113 H Carbon Dioxide 23 Anion Gap 8 BUN 19.0 D Creatinine 1.0 D GFR Calculation 77 BUN/Creatinine Ratio 19 Glucose 107 Calculated Osmolality 279 Uric Acid 5.7 Calcium 12.2 H Phosphorus 4.5 4.5 Magnesium 2.0 Total Bilirubin 1.00 Icterus Index < 2 AST 60 H ALT 56 Alkaline Phosphatase 435 H Lactate Dehydrogenase 1978 H Total Protein 4.7 L Albumin 2.1 L Globulin 2.6 Albumin/Globulin Ratio 0.8 L Specimen Hemolysis < 15 Vancomycin Trough Random Vancomycin Blood Type Antibody Screen Crossmatch ([facility]) Blood Product Request 12/13/17 12/13/17 04:04 04:04 WBC 4.7 RBC 2.25 L Hgb 7.6 L Hct 22.6 L MCV 100.4 H MCH 33.8 MCHC 33.6 RDW Std Deviation 68.6 H Plt Count 16 L* D MPV 9.3 L Immature Gran % (Auto) Not performed Neut % (Auto) Not performed Lymph % (Auto) Not performed [place] % (Auto) Not performed Eos % (Auto) Not performed Baso % (Auto) Not performed Neut # (Auto) Not performed Lymph # (Auto) Not performed [place] # (Auto) Not performed Eos # (Auto) Not performed Baso # (Auto) Not performed Abs Immat Gran (auto) Not performed Neutrophils % (Manual) 69.0 H Band Neutrophils % 10.0 H D Lymphocytes % (Manual) 20.0 L Reactive Lymphs % Monocytes % (Manual) 1.0 Metamyelocytes % Myelocytes % Neutrophils # (Manual) 3.2 Band Neutrophils # 0.5 Lymphocytes # (Manual) 0.9 L Abs React Lymphs (Man) Monocytes # (Manual) 0.0 Metamyelocytes # Myelocytes # Poikilocytosis 1+ Anisocytosis 1+ Macrocytosis Tear Drop Cells 1+ Ovalocytes Helmet Cells Schistocytes 1+ RBC Morph Comment Abnormal Turbidity < 20 Sodium 144 Potassium 3.5 L Chloride 111 H Carbon Dioxide 26 Anion Gap 7 BUN 25.0 H Creatinine 1.3 D GFR Calculation 57 BUN/Creatinine Ratio 19 Glucose 121 H Calculated Osmolality 282 H Uric Acid 5.7 Calcium 12.9 H Phosphorus Magnesium 2.2 Total Bilirubin 0.80 Icterus Index < 2 AST 51 ALT 48 Alkaline Phosphatase 439 H Lactate Dehydrogenase 2177 H Total Protein 4.7 L Albumin 2.0 L Globulin 2.7 Albumin/Globulin Ratio 0.7 L Specimen Hemolysis < 15 Vancomycin Trough Random Vancomycin 27.76 Blood Type Antibody Screen Crossmatch ([facility]) Blood Product Request Assessment and Plan - Assessment and Plan Acute Hypoxic Respiratory Failure Sepsis RUL pneumonia Met Cancer, Bx pending RA/Immune compromised - Imuran/Enbrel Pancytopenia - likely 2/2 sepsis, ? cancer Likely COPD Tobaccoism Hyponatremia - improved Dysphagia - alt diet Plan: Pt currently on O2 at 3L per [place], saad. O2 to keep sats 90-95%. Sputum + psa and MSSA, H. influenza, currently on Vanco, levaquin, s/p cefepime. Continue on BT' s with A/A q4hr and acapella. CT shows met Ca likely lung primary and ? small cell. S/P liver Bx on 12/11, awaiting path. Currently very weak, encourage increased ambulation. - Time Spent With Patient Total time spent is greater than 50% in coordination of care (as documented) at patient's floor/unit and/or counseling patient: less than 15 minutes
[2017-12-14] MEDS: ALBUTEROL/IPRATROPIUM 2.5mg-0.5mg/3ml NEB AEROSOL SCH ×5 (01:55→20:28)
[2017-12-14] MEDS: SODIUM BICARBONATE 100 MEQ in D5W 1,000 ML IV SCH ×2 (03:43→18:40)
--- NOTE | 2017-12-14 08:35 | XRay Report ---
Indication: F/U Procedure: XR chest 1V: Encounter: Subsequent Comparison: 12/11/2017, 12/10/2017 Technique: A single portable AP chest radiograph was obtained. Findings: Life support devices: Unchanged left PICC with tip in the right atrium. Lungs and airways: Normal lung volumes. Interval worsened heterogeneous airspace consolidation now involving both the right upper and lower lobes. Normal pulmonary vasculature. Pleura: Right pleural effusion effusion not excluded. No pneumothorax. Heart and mediastinum: The cardiomediastinal silhouette and great vessels are within normal limits. Osseous structures and soft tissues: No acute osseous abnormality is seen. Impression: Interval worsened heterogeneous airspace consolidation now involving both the right upper and lower lobes. .
[2017-12-14] MEDS: MORPHINE SULFATE 2mg INJECTION IVP PRN ×2 (08:36→10:38)
[2017-12-14] MEDS: SALINE FLUSH 10ml SYRINGE IVF PRN ×3 (08:55→12:46)
[2017-12-14] MEDS: CLOTRIMAZOLE 10 MG TROCHE MM SCH ×5 (09:09→20:04)
[2017-12-14] MEDS: NICOTINE 21 MG PATCH TD SCH (09:09)
[2017-12-14] MEDS: SALINE 0.65% NASAL SPRAY 44 ML BOTTLE EA NOSTRIL SCH ×4 (09:09→20:04)
[2017-12-14] MEDS: POLYETHYL GLYCOL 3350 17gm PACKET PO SCH (09:09)
[2017-12-14] MEDS: NICOTINE PATCH REMOVAL TD SCH (09:11)
[2017-12-14] MEDS: ALLOPURINOL 300 MG TABLET PO SCH (09:11)
--- NOTE | 2017-12-14 10:37 | Pulmonology Progress Note ---
Subjective Principal diagnosis: pneumonia Interval history: Pt sitting up in bed, + cough with some sputum noted. Feeling tired and c/o abd pain. Exam Vital signs: Temperature 98.3 F 12/14/17 00:00 Pulse Rate 145 H 12/14/17 07:00 Respiratory Rate 22 12/14/17 07:05 Blood Pressure 118/85 12/14/17 07:00 Pulse Oximetry 93 12/14/17 07:05 Inpatient Medications: Generic Name Dose Route Start Last Admin Trade Name Freq PRN Reason Stop Dose Admin Hydrocodone Bitart/Acetaminophen 1 tab 12/07/17 11:21 12/12/17 03:02 Stanley 5/325 PO 1 tab QID PRN Administration Pain Albuterol/Ipratropium 3 ml 12/07/17 16:00 12/14/17 07:05 Duoneb AEROSOL 3 ml Q4HR RANDALL Administration Allopurinol 300 mg 12/12/17 13:45 12/14/17 09:11 Zyloprim PO 300 mg DAILY RANDALL Administration Benzonatate 100 mg 12/07/17 12:48 Tessalon Perles PO TID PRN Cough Bisacodyl 10 mg 12/07/17 12:53 Dulcolax RECTALLY DAILY PRN Constipation Clotrimazole 10 mg 12/09/17 12:00 12/14/17 09:09 Mycelex Pj MM 10 mg 5XD RANDALL Administration Fluticasone Propionate 1 spray 12/07/17 11:25 Flonase EA NOSTRIL DAILY PRN PRN orders Levofloxacin/Dextrose 750 mg in 150 mls @ 100 mls/hr 12/07/17 11:21 12/13/17 14:21 Levaquin Premix IV Infused Q24H RANDALL Infusion Vancomycin HCl 1,250 mg/ 250 mls @ 200 mls/hr 12/14/17 08:00 12/14/17 09:04 Sodium Chloride IV 200 mls/hr Q48H RANDALL Administration Sodium Bicarbonate 100 meq/ 1,100 mls @ 100 mls/hr 12/13/17 12:30 12/14/17 07 :00 Dextrose IV 100 mls/hr .Q11H RANDALL Infusion Lorazepam 0.25 mg 12/07/17 12:48 12/13/17 04:22 Ativan Inj IVP 0.25 mg Q4H PRN Administration Air hunger/Anxiety Magnesium Hydroxide 30 ml 12/07/17 12:53 Mom PO DAILY PRN Constipation Morphine Sulfate 2 mg 12/07/17 12:47 12/14/17 08:36 Morphine Sulfate Inj IVP 2 mg Q2HR PRN Administration Pain Nicotine 21 mg 12/07/17 10:45 12/14/17 09:09 Nicoderm TD 21 mg DAILY RANDALL Administration Nicotine 1 removal 12/08/17 09:00 12/14/17 09:11 Nicotine Patch Removal TD 1 removal DAILY RANDALL Administration Ondansetron HCl 4 mg 12/07/17 11:21 Zofran IVP Q6H PRN Nausea Polyethylene Glycol 17 gm 12/09/17 11:00 12/14/17 09:09 Miralax PO 17 gm DAILY RANDALL Administration Potassium Chloride 20 meq 12/13/17 12:30 12/14/17 09:08 K-Dur 20 Meq Tablet PO 20 meq BIDWM RANDALL Administration Promethazine HCl/Codeine 5 ml 12/07/17 12:49 Phenergan + Codeine PO Q6HR PRN Cough Sodium Chloride 10 - 80 ml 12/07/17 08:43 12/14/17 08:55 Iv Flush IVF 30 ml PRN PRN Administration Flushing Sodium Chloride 2 spray 12/08/17 10:15 12/14/17 09:09 Deep Sea Nasal Moisturizing [place] EA NOSTRIL 2 spray QID RANDALL Administration Sodium Chloride 500 ml 12/11/17 10:29 Normal Saline IV PRN PRN Sodium Chloride 500 ml 12/13/17 09:27 Normal Saline IV PRN PRN Sodium Chloride 500 ml 12/13/17 10:04 Normal Saline IV PRN PRN Discontinued Medications Generic Name Dose Route Start Last Admin Trade Name Freq PRN Reason Stop Dose Admin Acetaminophen 650 mg 12/11/17 10:30 12/11/17 20:30 Tylenol PO 12/11/17 10:31 325 mg O ONE Administration Albuterol/Ipratropium 3 ml 12/07/17 11:00 12/07/17 16:44 Duoneb AEROSOL Not Given RTQID RANDALL Diphenhydramine HCl 50 mg 12/09/17 10:36 12/09/17 12:51 Benadryl PO 12/09/17 10:37 50 mg ONCE ONE Administration Diphenhydramine HCl 25 mg 12/11/17 10:29 12/11/17 20:30 Benadryl PO 12/11/17 10:30 25 mg ONCE ONE Administration Furosemide 20 mg 12/11/17 10:29 12/11/17 23:59 Lasix IVP 12/11/17 10:30 20 mg O ONE Administration Furosemide 20 mg 12/12/17 14:06 12/12/17 14:47 Lasix IVP 12/12/17 14:07 20 mg ONCE ONE Administration Furosemide 20 mg 12/13/17 09:29 12/13/17 11:51 Lasix IVP 12/13/17 09:30 20 mg ONCE ONE Administration Cefepime HCl 1 gm/ Sodium 100 mls @ 200 mls/hr 12/07/17 08:43 12/07/17 09:33 Chloride IV 12/07/17 09:12 Infused O ONE Infusion Sodium Chloride 1,000 mls @ 1,000 mls/hr 12/07/17 08:43 12/07/17 10:08 Normal Saline IV 12/07/17 09:42 Infused .Q1H ONE Infusion Sodium Chloride 1,000 mls @ 999.9 mls/hr 12/07/17 09:13 12/07/17 11:38 Normal Saline IV 12/07/17 10:12 Infused .Q1H ONE Infusion Cefepime HCl 1 gm/ Sodium 50 mls @ 100 mls/hr 12/07/17 16:00 12/12/17 00:59 Chloride IV Not Given Q6H RANDALL Sodium Chloride 1,000 mls @ 125 mls/hr 12/07/17 11:21 12/08/17 10:31 Normal Saline IV Infused .Q8H RANDALL Infusion Vancomycin HCl 1,250 mg/ 250 mls @ 200 mls/hr 12/08/17 02:00 12/09/17 18:58 Sodium Chloride IV Not Given Q12H RANDALL Vancomycin HCl 1,750 mg/ 500 mls @ 250 mls/hr 12/07/17 14:00 12/07/17 15:00 Sodium Chloride IV 12/07/17 14:01 Infused O ONE Infusion Sodium Chloride 500 mls @ 500 mls/hr 12/08/17 03:40 12/08/17 03:40 Normal Saline IV 12/08/17 04:39 Not Given .Q1H ONE Sodium Chloride 500 mls @ 500 mls/hr 12/08/17 05:30 12/08/17 05:17 Normal Saline IV 12/08/17 06:30 Not Given .Q1H RANDALL Potassium Chloride 20 meq/ 1,014.5455 mls @ 75 mls/hr 12/08/17 09:45 13:00 Potassium Phosphate 20 meq/ IV 0 mls/hr Sodium Chloride .[id number] RANDALL Infusion Potassium Chloride 20 meq/ 1,014.5455 mls @ 50 mls/hr 12/09/17 11:00 05:30 Potassium Phosphate 20 meq/ IV 0 mls/hr Sodium Chloride .[id number] RANDALL Infusion Vancomycin HCl 1,750 mg/ 500 mls @ 250 mls/hr 12/09/17 14:00 12/12/17 08:00 Sodium Chloride IV 12/12/17 07:30 Not Given Q12H RANDALL Sodium Chloride 1,000 mls @ 500 mls/hr 12/10/17 16:53 12/10/17 19:30 Normal Saline IV 12/10/17 18:52 Infused .Q2H ONE Infusion Sodium Chloride 1,000 mls @ 75 mls/hr 12/11/17 18:00 12/12/17 14:46 Normal Saline IV Infused .[id number] RANDALL Infusion Sodium Chloride 500 mls @ 250 mls/hr 12/11/17 15:45 12/11/17 18:20 Normal Saline IV 12/11/17 17:44 Infused .Q2H RANDALL Infusion Vancomycin HCl 1,750 mg/ 500 mls @ 250 mls/hr 12/13/17 08:00 Sodium Chloride IV 12/13/17 08:00 Q24H RANDALL Sodium Bicarbonate 100 meq/ 1,100 mls @ 75 mls/hr 12/12/17 14:00 12/13/17 12: 30 Dextrose IV Infused .[id number] RANDALL Infusion Zoledronic Acid 3 mg in 75 mls @ 150 mls/hr 12/13/17 12:00 12/13/17 14:59 Zometa IV 12/13/17 12:29 Infused O ONE Infusion Pharmacy Consult 1 each 12/11/17 11:34 Pharmacy Consult - Fall Risk XX 12/11/17 11:35 ONE TIME ONE Potassium Chloride 20 meq 12/12/17 13:58 12/12/17 14:14 K-Dur 20 Meq Tablet PO 12/12/17 13:59 20 meq O ONE Administration Sodium Chloride 500 ml 12/07/17 11:24 12/10/17 16:47 Normal Saline IV 500 ml PRN PRN Administration Sodium Chloride 500 ml 12/09/17 10:36 12/11/17 08:14 Normal Saline IV 500 ml PRN PRN Administration Sodium Chloride 500 ml 12/10/17 16:57 Normal Saline IV PRN PRN Spironolactone 12.5 mg 12/13/17 09:30 12/13/17 11:51 Aldactone PO 12/13/17 09:31 12.5 mg ONE TIME ONE Administration Vancomycin HCl 1 each 12/07/17 11:09 Pharmacy Consult - Vancomycin 12/07/17 11:10 O ONE Vancomycin HCl 1 each 12/07/17 11:21 Pharmacy Consult - Vancomycin 12/07/17 11:22 O ONE - Constitutional no acute distress, cachectic, cooperative - Routine HEENT Exam Head: Present: normocephalic, atraumatic Eye: Present: EOMI, PERRL ENT: Present: mucous membranes moist - Routine Neck Exam Present: supple, full ROM, trachea midline - Routine Respiratory Exam Present: rhonchi. Absent: accessory muscle use, patient mechanically ventilated - Routine Cardiovascular Exam Present: RRR, S1, S2, no murmur - Routine Abdominal Exam Present: soft, normoactive bowel sounds, tenderness - Routine Extremities Exam Present: edema, non tender, full ROM - Routine Back/Spine/Pelvis Exam Back/Spine: Present: full ROM - Routine Skin Exam Present: intact, dry - Routine Neurological Exam Present: alert, oriented X3, CN II-XII intact - Routine Psychiatric Exam Present: normal affect, normal thought process - Urinary Catheter Management Urethral Cath placed during this visit: yes Insertion date: 12/07/17 Insertion time: 19:45 Results - Laboratory Findings Laboratory: Laboratory Results - last 48 hr 12/10/17 12/13/17 12/13/17 20:09 04:04 04:04 WBC 4.7 RBC 2.25 L Hgb 7.6 L Hct 22.6 L MCV 100.4 H MCH 33.8 MCHC 33.6 RDW Std Deviation 68.6 H Plt Count 16 L* D MPV 9.3 L Immature Gran % (Auto) Not performed Neut % (Auto) Not performed Lymph % (Auto) Not performed [place] % (Auto) Not performed Eos % (Auto) Not performed Baso % (Auto) Not performed Neut # (Auto) Not performed Lymph # (Auto) Not performed [place] # (Auto) Not performed Eos # (Auto) Not performed Baso # (Auto) Not performed Abs Immat Gran (auto) Not performed Neutrophils % (Manual) 69.0 H Band Neutrophils % 10.0 H D Lymphocytes % (Manual) 20.0 L Monocytes % (Manual) 1.0 Eosinophils % (Manual) Metamyelocytes % Neutrophils # (Manual) 3.2 Band Neutrophils # 0.5 Lymphocytes # (Manual) 0.9 L Monocytes # (Manual) 0.0 Eosinophils # (Manual) Metamyelocytes # Nucleated RBCs Poikilocytosis 1+ Anisocytosis 1+ Tear Drop Cells 1+ Helmet Cells Schistocytes 1+ RBC Morph Comment Abnormal Turbidity < 20 Sodium 144 Potassium 3.5 L Chloride 111 H Carbon Dioxide 26 Anion Gap 7 BUN 25.0 H Creatinine 1.3 D GFR Calculation 57 BUN/Creatinine Ratio 19 Glucose 121 H Calculated Osmolality 282 H Uric Acid 5.7 Calcium 12.9 H Phosphorus Magnesium 2.2 Total Bilirubin 0.80 Icterus Index < 2 AST 51 ALT 48 Alkaline Phosphatase 439 H Lactate Dehydrogenase 2177 H Total Protein 4.7 L Albumin 2.0 L Globulin 2.7 Albumin/Globulin Ratio 0.7 L Specimen Hemolysis < 15 Random Vancomycin 27.76 Blood Type O Positive Antibody Screen Negative Crossmatch ([facility]) See Detail Blood Product Request 12/13/17 12/13/17 12/14/17 09:27 18:38 03:52 WBC 4.5 RBC 2.27 L Hgb 7.7 L Hct 22.9 L MCV 100.9 H MCH 33.9 MCHC 33.6 RDW Std Deviation 69.0 H Plt Count 43 L D 34 L MPV 11.2 Immature Gran % (Auto) Not performed Neut % (Auto) Not performed Lymph % (Auto) Not performed [place] % (Auto) Not performed Eos % (Auto) Not performed Baso % (Auto) Not performed Neut # (Auto) Not performed Lymph # (Auto) Not performed [place] # (Auto) Not performed Eos # (Auto) Not performed Baso # (Auto) Not performed Abs Immat Gran (auto) Not performed Neutrophils % (Manual) 71.0 H Band Neutrophils % 9.0 H Lymphocytes % (Manual) 8.0 L Monocytes % (Manual) 9.0 Eosinophils % (Manual) 1.0 Metamyelocytes % 2.0 H Neutrophils # (Manual) 3.2 Band Neutrophils # 0.4 Lymphocytes # (Manual) 0.4 L Monocytes # (Manual) 0.4 Eosinophils # (Manual) 0.0 Metamyelocytes # 0.1 Nucleated RBCs 3 Poikilocytosis 2+ Anisocytosis 2+ Tear Drop Cells 1+ Helmet Cells 1+ Schistocytes 1+ RBC Morph Comment Abnormal Turbidity Sodium Potassium Chloride Carbon Dioxide Anion Gap BUN Creatinine GFR Calculation BUN/Creatinine Ratio Glucose Calculated Osmolality Uric Acid Calcium Phosphorus Magnesium Total Bilirubin Icterus Index AST ALT Alkaline Phosphatase Lactate Dehydrogenase Total Protein Albumin Globulin Albumin/Globulin Ratio Specimen Hemolysis Random Vancomycin Blood Type Antibody Screen Crossmatch ([facility]) Blood Product Request 1 unit ppp issued 12/14/17 03:52 WBC RBC Hgb Hct MCV MCH MCHC RDW Std Deviation Plt Count MPV Immature Gran % (Auto) Neut % (Auto) Lymph % (Auto) [place] % (Auto) Eos % (Auto) Baso % (Auto) Neut # (Auto) Lymph # (Auto) [place] # (Auto) Eos # (Auto) Baso # (Auto) Abs Immat Gran (auto) Neutrophils % (Manual) Band Neutrophils % Lymphocytes % (Manual) Monocytes % (Manual) Eosinophils % (Manual) Metamyelocytes % Neutrophils # (Manual) Band Neutrophils # Lymphocytes # (Manual) Monocytes # (Manual) Eosinophils # (Manual) Metamyelocytes # Nucleated RBCs Poikilocytosis Anisocytosis Tear Drop Cells Helmet Cells Schistocytes RBC Morph Comment Turbidity < 20 Sodium 143 Potassium 3.6 Chloride 106 Carbon Dioxide 28 Anion Gap 9 BUN 28.0 H Creatinine 1.3 GFR Calculation 57 BUN/Creatinine Ratio 22 Glucose 125 H Calculated Osmolality 282 H Uric Acid Calcium 13.3 H* Phosphorus 3.0 Magnesium 2.0 Total Bilirubin 1.00 Icterus Index < 2 AST 131 H D ALT 68 Alkaline Phosphatase 574 H D Lactate Dehydrogenase 2433 H Total Protein 4.9 L Albumin 2.2 L Globulin 2.7 Albumin/Globulin Ratio 0.8 L Specimen Hemolysis < 15 Random Vancomycin Blood Type Antibody Screen Crossmatch ([facility]) Blood Product Request - Diagnostic Findings Chest x-ray: image reviewed (CXR with increased infiltrates in RLL now along with RUL infiltrates) Assessment and Plan - Assessment and Plan Acute Hypoxic Respiratory Failure Sepsis RUL pneumonia Met Cancer, Bx pending RA/Immune compromised - Imuran/Enbrel Pancytopenia - likely 2/2 sepsis, ? cancer Likely COPD Tobaccoism Hyponatremia - improved Dysphagia - alt diet Plan: Pt currently on O2 at 6L per NC, increased from 3L yesterday, sats 94%, O2 to keep sats 90-95%. Sputum + psa and MSSA, H. influenza, currently on Vanco, levaquin, s/p cefepime. Continue on BT's with A/A q4hr and acapella, add IS, don't have Ezpap available. CT shows met Ca likely lung primary and ? small cell. S/P liver Bx on 12/11, awaiting path. Currently very weak, encourage increased ambulation, IS and coughing. WBC stable, bands improving, follow closely. - Time Spent With Patient Total time spent is greater than 50% in coordination of care (as documented) at patient's floor/unit and/or counseling patient: less than 15 minutes
--- NOTE | 2017-12-14 10:58 | Progress Note ---
- Date 12/14/17 Subjective: F/U: Sepsis, pneumonia Very tired, weak. Will open eyes and verbalize with short phrases. Breathing feels more short and labored. Mouth and throat sore. Oral drive minimal-few bites of intake. Back pain has been bothersome-would like to be up in chair to help discomfort, but too weak for transfers. CXR worsening despite treatments. Objective Vital signs: Temperature 98.3 F 12/14/17 00:00 Pulse Rate 145 H 12/14/17 07:00 Respiratory Rate 22 12/14/17 07:05 Blood Pressure 118/85 12/14/17 07:00 Pulse Oximetry 93 12/14/17 07:05 Height/Weight/BMI: Height 1.7 m Weight 76.8 kg Body Mass Index 21.4 - Constitutional Present: moderate distress, well nourished, well developed, average body habitus , disheveled, other (Very weak and tired.) - Routine HEENT Exam Head: Present: normocephalic, atraumatic Eye: Present: EOMI, PERRL ENT: Present: mucous membranes dry. Absent: dentition normal - Routine Respiratory Exam Present: decreased breath sounds, rales, respiratory distress, rhonchi, distant breath sounds, diminished air movement - Routine Cardiovascular Exam Present: no murmur, tachycardia - Routine Abdominal Exam Present: soft, non distended, non tender. Absent: normoactive bowel sounds ( decreased) - Routine Extremities Exam Present: edema (+3 bilateral upper and lower). Absent: cyanosis, clubbing - Routine Musculoskeletal Exam Musculoskeletal: Present: no clubbing or cyanosis. Absent: normal strength - Routine Skin Exam Present: warm. Absent: dry (Moist) - Routine Neurological Exam Present: alert (For brief periods), CN II-XII intact, vision grossly intact, hearing grossly intact. Absent: motor deficit - Routine Psychiatric Exam Present: normal affect, cooperative. Absent: anxious, agitated Results - Labs CBC & Chem 7: 12/14/17 03:52 12/14/17 03:52 Microbiology Results: Microbiology 12/10/17 15:57 Peripheral/Iv Start Blood Culture - Preliminary No Growth After 3 Days 12/10/17 16:00 Peripheral/Iv Start Blood Culture - Preliminary No Growth After 3 Days 12/07/17 12:45 Sputum, Expectorated Gram Stain - Final 12/07/17 12:45 Sputum, Expectorated Sputum Culture - Final Pseudomonas aeruginosa Haemophilus influenzae Staphylococcus aureus Normal Resp Pallavi incl. Yeast 12/07/17 18:13 Urine Legionella Urinary Antigen - Final 12/07/17 18:13 Urine Streptococcus pneumoniae Antigen (M - Final Assessment and Plan (1) Septic shock Current visit: Yes Status: Acute (2) Pneumonia Current visit: Yes Status: Acute Assessment and Plan: IMPRESSION Sepsis secondary to Right sided pneumonia Septic shock based on lactate of 4.5 (per CMS) Severe sepsis based on 2016 Surviving Sepsis Guidelines Organ dysfunction = MAP <70, hyperbilirubinemia (2.4), thrombocytopenia ( 16) SOFA on admission = 7, presumed baseline of 0 Pneumonia -right upper lobe and right lower lobe-sputum positive for Pseudomonas and MSSA Acute Hypoxia -currently on 2 L Malignant process with lesions and lung, liver, bone, elevated LDH, bone marrow involvement and thrombocytopenia and anemia. 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 Macrocytic anemia Rheumatoid arthritis Immunocompromised Chronic antritis Tobacco dependency Encephalopathy Sinus tachycardia PLAN Clinically declining. O2 needs and work of breathing increasing. CXR worsening despite treatment. Calcium increasing despite Zometa. Uncertain that patient will survive this acute event. Discussed with about his progressive decline despite treatments initiated - will call family in. Continue with supportive care and antibiotics - levofloxacin and vancomycin, neb treatments, O2. Continue to work on pain and symptom control. Restart cefepime due to worsening pneumonia. Case discussed with CCU nursing, pulm, and family. Time spent with patient care 35 minutes. DVT Prophylaxis: SCD's Resuscitation Status: Full Code - Time spent with patient Time with patient PN: 35 minutes - Physician Narrative Physician: Wesley Vivar MD Narrative: Date: 12/14/17 Time: 1055 Hospital Course Summary Disclaimer: The visit summary below is not to be considered part of the above Progress Note. Hospital Course: 12/07/17 Admit, inpatient status, to CCU; Patient is critically ill. Dr. Vivar attending. Septic shock based on CMS and Severe Sepsis based on Surviving Sepsis He received full 30 mL/kg bolus in ED. If unable to keep MAP >65, will need to start norepinephrine, which would indicate shock based on 2016 rec. Initial lactate was 4.5; if lactate is still elevated >4 on recheck, this would also indicate shock based on 2016 recommendations. Blood cultures already drawn. Repeat physical exam done. Repeat procalcitonin in am. Sinus tachycardia has improved after fluid boluses, from 138-105. Right sided pneumonia in an immunocompromised patient with significant smoking history. Cefepime was started in the ED -- will continue with this and add vancomycin and levofloxacin d/t immunocompromised state. Check for strep pneumo and legionella. Check sputum culture. Consult Dr. Mckinney; suspect he may require additional respiratory intervention and with smoking hx likely has underlying COPD. Acapella, DuoNeb. Ask RT to provide tobacco cessation information. Nicotine patch ordered. Hold RA medications including Enbrel & Imuran. Pancytopenia Suspect d/t sepsis. If no improvement in next few days consider heme consultation. Platelets only 16 on admission. Will give platelet pack x1. Lovenox is contraindicated. SCD for DVT prevention. Macrocytic anemia - check iron studies, folate, vitamin B12. Hyperbilirubinemia Suspect d/t sepsis. Hepatomegaly and RUQ tenderness. He had liver sonogram in Aug, 2017 which was normal. Check INR. Hyponatremia and hypercalcemia Suspect d/t dehydration. Continue IVF and check in am. Advanced directives None. Requests full resuscitation. 12/08/17 Continue with levofloxacin, cefepime and vancomycin for pulmonary coverage. Neb treatments and acapella to continue. Monitor saturations and work of breathing - on 2L currently. Will have speech check swallow secondary to coughing with swallow. Hemoglobin decreased to 6.7 - transfusion initiated. Iron/B12/Folate tests pending. Platelets increased to 30K. Monitor. No Lovenox due to thrombocytopenia. Sodium with slight improvement to 128, but potassium decreased to 3.7. Will change IVF to NS with 20KCl and 20KPhos and decrease rate to 75cc/hr. BP improved. Recheck CMP, Mg, Phos, Procalcitonin, and CBC secondary to resolving septic shock. Continues to need close nursing care and support, continue CCU monitoring. 12/09/17 Continue with levofloxacin, cefepime and vancomycin for pulmonary coverage. Neb treatments and acapella to continue. Monitor saturations and work of breathing - on 2L currently. Start Mycelex lola for thrush. Speech check recommends pureed diet as very difficult to chew foods - may need to upgrade is not liking pureed consistency. Platelets decreased to 20K. Monitor. Give platelet pack. Hemoglobin improved to 8.2 post transfusion yesterday. Sodium improvement to 134, with potassium and phos normal at 4.2 and 4.3 respectively. Continue IVF to NS with 20KCl and 20KPhos but decrease rate to 50cc/hr. BP improved. HR still in 115 range. Start Bladder retraining - possible discontinue Rivas in near future. Start Miralax daily to help bowel function - hold with loose stool. PT/OT consult to help improve strength. Can transfer to medical floor for continuation of care. 12/10/17 The patient became confused last night and was pulling off his oxygen and pulled out his IV. He is more calm at this time but is still confused. With his severity of illness, will transfer back to intensive care when a bed is open. In the meantime will have his nurse stay close to his room and obtain continuous oximetry. Dr. Galarza was called and consulted regarding his pancytopenia. We'll check PTH regarding hypercalcemia. His hypercalcemia is likely worse than it appears since he also has hypoalbuminemia. Hold IV fluids for now. He is 9 L up on fluids. May require diuresis. Continue Rivas catheter for now. Check ammonia level regarding altered mental status. Continue with levofloxacin, cefepime and vancomycin for pneumonia with immunosuppression. Neb treatments and acapella to continue. Monitor saturations and work of breathing - now requiring 4 L PT/OT consult. 12/11/17 The patient had recurrence of elevated lactate yesterday despite continued treatment with triple antibiotics. Heart rate was back up to 130. The patient was given IV fluids. This morning hemoglobin is dropped to 7.9 and platelets are 18,000. Discussed with Dr. Galarza and we will give 1 platelet pack and 1 unit of blood. There is concern for occult malignancy and we will obtain a CT head, chest, abdomen and pelvis all without contrast today. Regarding his elevated calcium, PTH was low. Await results of CAT scans. Regarding Pseudomonas and MSSA pneumonia, continue Levaquin. Stop cefepime. Continue vancomycin for now until blood cultures have returned. 12/12/17 Continue levofloxacin and vancomycin for antimicrobial coverage. Dr Galarza considering initiation of chemotherapy. Discussed with Dr Galarza about patient significantly declined status-concern currently too ill to start chemo. Worry that a large component of patient's acute problems are due to his cancerous process - uncertain if will make much gains without treating cancer, but uncertain how well he could tolerate chemo. Ultimately decided to wait until final path report returns before initiating chemo. Dr Galarza starting treatments to help protect from tumor lysis. IVF change to D5W with 2amps Bicarb at 75cc/hr to alkalinize urine. 12/13/17 More somnolent and weak this afternoon. Oral drive decreased. Continue levofloxacin and vancomycin for antimicrobial coverage. Increase rate of D5W with 2amps Bicarb to 100 cc/hr. Did give Lasix 20mg IV to help minimize edema and increase urine output. Zometa initiated by Dr Galarza to help hypercalcemia. Cautious oral intake secondary to somnolence. Continue pain control. Restart cefepime due to worsening pneumonia.
[2017-12-14] MEDS ORDERED: FUROSEMIDE 40 MG/4 ML INJECTION IVP ONE (11:19)
[2017-12-14] MEDS: LEVOFLOXACIN PB 750 MG/150 ML BAG IV SCH (12:15)
[2017-12-14] MEDS: MORPHINE SULFATE 4mg INJECTION IVP PRN ×2 (12:44→17:44)
--- NOTE | 2017-12-14 14:58 | Pharmacy Consult-Antibiotics ---
Pharmacy Consult-Vancomycin - Laboratory Information WBC 4.5 T/MM3 (4.5-11.0) 12/14/17 03:52 BUN 28.0 MG/DL (9-20) H 12/14/17 03:52 Creatinine 1.3 mg/dL (0.8-1.5) 12/14/17 03:52 Procalcitonin 4.09 NG/ML H* 12/10/17 15:57 Vancomycin Trough 40.61 UG/ML (15-20) H* 12/12/17 06:48 - Consult Information We will confirm proper vancomycin dosing with vancomycin random level on2017. Adjustment if any will be made at that time. Thanks
[2017-12-14] MEDS ORDERED: LIDOCAINE 1% (10mg/ml) 5ml PF SDV ONE (16:50)
[2017-12-14] MEDS ORDERED: BUPIVACAINE 0.5% (5mg/ml) PF 30ml INJ SDV ONE (16:50)
--- NOTE | 2017-12-14 17:32 | CT Scan Report ---
Indication:pancytopenia Procedure:CT biopsy bone marrow CT GUIDED BONE MARROW BIOPSY/ASPIRATION: The procedure including the benefits, risks, and alternatives were explained in detail to the patient. All of his questions were answered. They stated that they understood and wished to proceed. Informed consent was obtained. A pre-procedural timeout was done to verify the correct patient and procedure. Using sterile technique, local Xylocaine and Marcaine anesthesia, and CT guidance, an 11-gauge bone biopsy needle is advanced from a posterior approach into the left iliac bone. Despite repeated repositioning of the needle, no bone marrow was able to be aspirated. A small bone core was obtained and the needle was removed. Hemostasis was obtained and a compression bandage was applied. Following this, the patient was taken back to his room in the CCU. He was in stable condition. Impression: 1. Inability to aspirate any bone marrow from the posterior aspect left iliac bone despite multiple repositionings of the needle. 2. Small bone core was obtained and sent to lab. Jace Becker RPA/COSMO performed this under my personal supervision. .
--- NOTE | 2017-12-14 17:46 | Progress Note ---
Oncology Subjective Bone marrow this evening. Pain in back and joints. Patient very passive. He does not want to but seems that his will to live is decreased. Exam Vital signs: Temperature 98.4 F 12/14/17 12:01 Pulse Rate 132 H 12/14/17 13:00 Respiratory Rate 18 12/14/17 14:59 Blood Pressure 108/74 12/14/17 13:00 Pulse Oximetry 90 12/14/17 14:59 - Constitutional moderate distress, thin, cooperative - Routine HEENT Exam Head: Present: normocephalic Eye: Present: EOMI, PERRL ENT: Present: mucous membranes moist - Routine Neck Exam Present: supple. Absent: lymphadenopathy - Routine Respiratory Exam Present: decreased breath sounds, rales (right lung) - Routine Cardiovascular Exam Present: RRR, no murmur - Routine Abdominal Exam Present: soft, tenderness (right upper quadrant) - Routine Extremities Exam Absent: cyanosis, clubbing - Routine Back/Spine/Pelvis Exam Comments: joint deformities 2 to RA - Routine Skin Exam Present: dry, warm - Routine Neurological Exam Present: alert, CN II-XII intact - Routine Psychiatric Exam Present: depressed Oncology Results - Labs CBC & Chem 7: 12/14/17 03:52 12/14/17 03:52 Labs: Short CBC 12/13/17 12/14/17 Range/Units 18:38 03:52 WBC 4.5 (4.5-11.0) T/MM3 Hgb 7.7 L (13.5-17.5) GM/DL Hct 22.9 L (41-53) % Plt Count 43 L D 34 L (130-400) T/MM3 BMP 12/14/17 03:52 Sodium 143 Potassium 3.6 Chloride 106 Carbon Dioxide 28 BUN 28.0 H Creatinine 1.3 Glucose 125 H Calcium 13.3 H* Liver Function 12/14/17 Range/Units 03:52 Total Bilirubin 1.00 (0.20-1.30) MG/DL AST 131 H D (17-59) U/L ALT 68 (21-72) U/L Alkaline Phosphatase 574 H D (38-126) U/L Albumin 2.2 L (3.5-5.0) g/dL Laboratory Tests 12/13/17 12/14/17 04:04 03:52 Creatinine 1.3 Calcium 12.9 H 13.3 H* AST 131 H D Lactate Dehydrogenase 2433 H Albumin 2.2 L CA increasing Assessment and Plan Assessment and Plan: 1. 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 Creatinine 1.3 and elevated BUN. Had Zometa yesterday. Calcium is increasing. He is not a good candidate or hydration to treat the hypercalcemia and PTH is low suggesting this is hypercalcemia of malignancy. Bone marrow biopsy to document bone marrow involvement done today. Discussed therapy with Carboplatin and etoposide versus comfort care. Patient and family will decide by tomorrow. Discussed with Dr. Vivar. Therapy would be prolonged hospitalization with blood and platelet support and he would not qualify for SNU. His ability to survive therapy would be limited and the comorbid conditions of RA have dramatically reduced performance status. . 2. 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 12/14/17: Platelets 35K. 3. Pneumonia with culture growing Pseudomonas, MSSA, Hemophilus influenza, and yeast. Presented with Sepsis with elevated procalciton. Respiratory status is declining. 4. RA on Embryl Immuran. These medications have been discontinued 5. Severe deconditioning Recommendations: Discussed with Dr. Vivar. Continue antibiotics Blood and platelets support. Follow lab Patient and family to make decision about therapy by AM. Their comprehension and realistic expectations of disease process is limited. . - Time Spent With Patient Total time spent is greater than 50% in coordination of care (as documented) at patient's floor/unit and/or counseling patient: 25 - 35 minutes
[2017-12-14] MEDS: CEFEPIME 1 GM in NS 100 ML IV SCH (20:42)
[2017-12-15] MEDS: CEFEPIME 1 GM in NS 100 ML IV SCH (01:01)
[2017-12-15] MEDS: ALBUTEROL/IPRATROPIUM 2.5mg-0.5mg/3ml NEB AEROSOL SCH ×8 (01:15→23:37)
[2017-12-15] MEDS: MORPHINE SULFATE 4mg INJECTION IVP PRN ×2 (02:24→15:16)
[2017-12-15] MEDS: SODIUM BICARBONATE 100 MEQ in D5W 1,000 ML IV SCH (07:21)
[2017-12-15] MEDS: CEFEPIME 1 GM in NS 50 ML IV SCH ×3 (08:38→20:21)
[2017-12-15] MEDS: ALLOPURINOL 300 MG TABLET PO SCH (09:27)
--- NOTE | 2017-12-15 09:27 | XRay Report ---
Indication: infiltrates PROCEDURE: XR chest 1V: Encounter: Initial Comparison: December 14, 2017 Findings: Slight interval improvement in aeration of the right lower lobe with continued severe right-sided airspace consolidation. Left PICC line remains in stable position. Small bilateral pleural effusions. Left basilar atelectasis is slightly increased. No pneumothorax. Heart size and mediastinal contours are stable. Impression: Slight improvement in aeration of the right lower lobe with continued severe airspace disease. .
[2017-12-15] MEDS: NICOTINE 21 MG PATCH TD SCH (09:28)
[2017-12-15] MEDS: CLOTRIMAZOLE 10 MG TROCHE MM SCH ×5 (09:28→22:05)
[2017-12-15] MEDS ORDERED: FUROSEMIDE 40 MG/4 ML INJECTION IVP ONE ×2 (09:29→17:41)
[2017-12-15] MEDS ORDERED: NS FLUSH BAG 500ml IV PRN (09:29)
[2017-12-15] MEDS: POLYETHYL GLYCOL 3350 17gm PACKET PO SCH (10:03)
[2017-12-15] MEDS: NICOTINE PATCH REMOVAL TD SCH (10:03)
[2017-12-15] MEDS: SALINE 0.65% NASAL SPRAY 44 ML BOTTLE EA NOSTRIL SCH ×4 (10:03→20:21)
--- NOTE | 2017-12-15 10:57 | Pharmacy Consult-Antibiotics ---
Pharmacy Consult-Vancomycin - Laboratory Information WBC 3.2 T/MM3 (4.5-11.0) L 12/15/17 04:12 BUN 36.0 MG/DL (9-20) H 12/15/17 04:12 Creatinine 1.3 mg/dL (0.8-1.5) 12/15/17 07:53 Procalcitonin 4.09 NG/ML H* 12/10/17 15:57 Vancomycin Trough 20.67 ug/mL (15-20) H 12/15/17 07:53 - Consult Information New dose of vancomycin 1gm ivpb will be given q24h at 1200. Renal function is still compensated from baseline so will closely monitor. A dose of vancomycin of 1.25gm was given at 0900 with a 24 hour random trough level resulted as 20.6. Decrease the dose to 1 gram q24h should provide safe and therapeutic dose. Thanks
[2017-12-15] MEDS: LEVOFLOXACIN PB 750 MG/150 ML BAG IV SCH (11:44)
--- NOTE | 2017-12-15 13:22 | Pulmonology Progress Note ---
Subjective Principal diagnosis: pneumonia Interval history: reports coughing with dark sputum breathing is not difficult at this time wants to drink but he is NPO Exam Vital signs: Temperature 97.4 F 12/15/17 08:00 Pulse Rate 127 H 12/15/17 11:00 Respiratory Rate 20 12/15/17 11:00 Blood Pressure 95/69 12/15/17 11:00 Pulse Oximetry 98 12/15/17 11:00 Inpatient Medications: Generic Name Dose Route Start Last Admin Trade Name Freq PRN Reason Stop Dose Admin Hydrocodone Bitart/Acetaminophen 1 tab 12/07/17 11:21 12/12/17 03:02 [place] 5/325 PO 1 tab QID PRN Administration Pain Albuterol/Ipratropium 3 ml 12/07/17 16:00 12/15/17 10:47 Duoneb AEROSOL 3 ml Q4HR RANDALL Administration Allopurinol 300 mg 12/12/17 13:45 12/15/17 09:27 Zyloprim PO 300 mg DAILY RANDALL Administration Benzonatate 100 mg 12/07/17 12:48 Tessalon Perles PO TID PRN Cough Bisacodyl 10 mg 12/07/17 12:53 Dulcolax RECTALLY DAILY PRN Constipation Clotrimazole 10 mg 12/09/17 12:00 12/15/17 12:59 Mycelex Pj MM Not Given 5XD RANDALL Fluticasone Propionate 1 spray 12/07/17 11:25 Flonase EA NOSTRIL DAILY PRN PRN orders Levofloxacin/Dextrose 750 mg in 150 mls @ 100 mls/hr 12/07/17 11:21 12/15/17 11:44 Levaquin Premix IV 150 mls/hr Q24H RANDALL Administration Sodium Bicarbonate 100 meq/ 1,100 mls @ 100 mls/hr 12/13/17 12:30 12/15/17 11 :44 Dextrose IV 0 mls/hr .Q11H RANDALL Infusion Cefepime HCl 1 gm/ Sodium 50 mls @ 200 mls/hr 12/15/17 09:00 12/15/17 08:53 Chloride IV Infused Q6HR RANDALL Infusion Vancomycin HCl 1,000 mg/ 250 mls @ 250 mls/hr 12/15/17 12:00 12/15/17 12:58 Sodium Chloride IV 250 mls/hr Q24H RANDALL Administration Lorazepam 0.25 mg 12/07/17 12:48 12/13/17 04:22 Ativan Inj IVP 0.25 mg Q4H PRN Administration Air hunger/Anxiety Magnesium Hydroxide 30 ml 12/07/17 12:53 Mom PO DAILY PRN Constipation Morphine Sulfate 4 mg 12/14/17 11:20 12/15/17 02:24 Morphine Sulfate Inj IVP 4 mg Q2HR PRN Administration Pain Nicotine 21 mg 12/07/17 10:45 12/15/17 09:28 Nicoderm TD 21 mg DAILY RANDALL Administration Nicotine 1 removal 12/08/17 09:00 12/15/17 10:03 Nicotine Patch Removal TD 1 removal DAILY RANDALL Administration Ondansetron HCl 4 mg 12/07/17 11:21 Zofran IVP Q6H PRN Nausea Pharmacy Profile Note 5 ml 12/14/17 11:19 Lidocaine/Maalox/Benadryl Soln PO Q4H PRN Mouth pain Polyethylene Glycol 17 gm 12/09/17 11:00 12/15/17 10:03 Miralax PO Not Given DAILY RANDALL Potassium Chloride 20 meq 12/13/17 12:30 12/15/17 07:57 K-Dur 20 Meq Tablet PO 20 meq BIDWM RANDALL Administration Promethazine HCl/Codeine 5 ml 12/07/17 12:49 Phenergan + Codeine PO Q6HR PRN Cough Sodium Chloride 10 - 80 ml 12/07/17 08:43 12/14/17 12:46 Iv Flush IVF 20 ml PRN PRN Administration Flushing Sodium Chloride 2 spray 12/08/17 10:15 12/15/17 10:03 [place] Nasal Moisturizing [place] EA NOSTRIL 2 spray QID RANDALL Administration Sodium Chloride 500 ml 12/13/17 10:04 Normal Saline IV PRN PRN Sodium Chloride 500 ml 12/15/17 09:29 Normal Saline IV PRN PRN Discontinued Medications Generic Name Dose Route Start Last Admin Trade Name Freq PRN Reason Stop Dose Admin Acetaminophen 650 mg 12/11/17 10:30 12/11/17 20:30 Tylenol PO 12/11/17 10:31 325 mg O ONE Administration Albuterol/Ipratropium 3 ml 12/07/17 11:00 12/07/17 16:44 Duoneb AEROSOL Not Given RTQID RANDALL Diphenhydramine HCl 50 mg 12/09/17 10:36 12/09/17 12:51 Benadryl PO 12/09/17 10:37 50 mg ONCE ONE Administration Diphenhydramine HCl 25 mg 12/11/17 10:29 12/11/17 20:30 Benadryl PO 12/11/17 10:30 25 mg ONCE ONE Administration Furosemide 20 mg 12/11/17 10:29 12/11/17 23:59 Lasix IVP 12/11/17 10:30 20 mg O ONE Administration Furosemide 20 mg 12/12/17 14:06 12/12/17 14:47 Lasix IVP 12/12/17 14:07 20 mg ONCE ONE Administration Furosemide 20 mg 12/13/17 09:29 12/13/17 11:51 Lasix IVP 12/13/17 09:30 20 mg ONCE ONE Administration Furosemide 40 mg 12/14/17 11:19 12/14/17 12:14 Lasix IVP 12/14/17 11:20 40 mg O ONE Administration Furosemide 40 mg 12/15/17 09:29 12/15/17 11:44 Lasix IVP 12/15/17 09:30 40 mg O ONE Administration Cefepime HCl 1 gm/ Sodium 100 mls @ 200 mls/hr 12/07/17 08:43 12/07/17 09:33 Chloride IV 12/07/17 09:12 Infused O ONE Infusion Sodium Chloride 1,000 mls @ 1,000 mls/hr 12/07/17 08:43 12/07/17 10:08 Normal Saline IV 12/07/17 09:42 Infused .Q1H ONE Infusion Sodium Chloride 1,000 mls @ 999.9 mls/hr 12/07/17 09:13 12/07/17 11:38 Normal Saline IV 12/07/17 10:12 Infused .Q1H ONE Infusion Cefepime HCl 1 gm/ Sodium 50 mls @ 100 mls/hr 12/07/17 16:00 12/12/17 00:59 Chloride IV Not Given Q6H RADNALL Sodium Chloride 1,000 mls @ 125 mls/hr 12/07/17 11:21 12/08/17 10:31 Normal Saline IV Infused .Q8H RANDALL Infusion Vancomycin HCl 1,250 mg/ 250 mls @ 200 mls/hr 12/08/17 02:00 12/09/17 18:58 Sodium Chloride IV Not Given Q12H RANDALL Vancomycin HCl 1,750 mg/ 500 mls @ 250 mls/hr 12/07/17 14:00 12/07/17 15:00 Sodium Chloride IV 12/07/17 14:01 Infused O ONE Infusion Sodium Chloride 500 mls @ 500 mls/hr 12/08/17 03:40 12/08/17 03:40 Normal Saline IV 12/08/17 04:39 Not Given .Q1H ONE Sodium Chloride 500 mls @ 500 mls/hr 12/08/17 05:30 12/08/17 05:17 Normal Saline IV 12/08/17 06:30 Not Given .Q1H RANDALL Potassium Chloride 20 meq/ 1,014.5455 mls @ 75 mls/hr 12/08/17 09:45 13:00 Potassium Phosphate 20 meq/ IV 0 mls/hr Sodium Chloride .[id number] RANDALL Infusion Potassium Chloride 20 meq/ 1,014.5455 mls @ 50 mls/hr 12/09/17 11:00 05:30 Potassium Phosphate 20 meq/ IV 0 mls/hr Sodium Chloride .[id number] RANDALL Infusion Vancomycin HCl 1,750 mg/ 500 mls @ 250 mls/hr 12/09/17 14:00 12/12/17 08:00 Sodium Chloride IV 12/12/17 07:30 Not Given Q12H RANDALL Sodium Chloride 1,000 mls @ 500 mls/hr 12/10/17 16:53 12/10/17 19:30 Normal Saline IV 12/10/17 18:52 Infused .Q2H ONE Infusion Sodium Chloride 1,000 mls @ 75 mls/hr 12/11/17 18:00 12/12/17 14:46 Normal Saline IV Infused .[id number] RANDALL Infusion Sodium Chloride 500 mls @ 250 mls/hr 12/11/17 15:45 12/11/17 18:20 Normal Saline IV 12/11/17 17:44 Infused .Q2H RANDALL Infusion Vancomycin HCl 1,750 mg/ 500 mls @ 250 mls/hr 12/13/17 08:00 Sodium Chloride IV 12/13/17 08:00 Q24H RANDALL Sodium Bicarbonate 100 meq/ 1,100 mls @ 75 mls/hr 12/12/17 14:00 12/13/17 12: 30 Dextrose IV Infused .[id number] RANDALL Infusion Vancomycin HCl 1,250 mg/ 250 mls @ 200 mls/hr 12/14/17 08:00 12/14/17 11:00 Sodium Chloride IV Infused Q48H RANDALL Infusion Zoledronic Acid 3 mg in 75 mls @ 150 mls/hr 12/13/17 12:00 12/13/17 14:59 Zometa IV 12/13/17 12:29 Infused O ONE Infusion Cefepime HCl 1 gm/ Sodium 100 mls @ 200 mls/hr 12/14/17 19:30 12/15/17 01:35 Chloride IV Infused Q6H RANDALL Infusion Morphine Sulfate 2 mg 12/07/17 12:47 12/14/17 10:38 Morphine Sulfate Inj IVP 2 mg Q2HR PRN Administration Pain Pharmacy Consult 1 each 12/11/17 11:34 Pharmacy Consult - Fall Risk XX 12/11/17 11:35 ONE TIME ONE Potassium Chloride 20 meq 12/12/17 13:58 12/12/17 14:14 K-Dur 20 Meq Tablet PO 12/12/17 13:59 20 meq O ONE Administration Sodium Chloride 500 ml 12/07/17 11:24 12/10/17 16:47 Normal Saline IV 500 ml PRN PRN Administration Sodium Chloride 500 ml 12/09/17 10:36 12/11/17 08:14 Normal Saline IV 500 ml PRN PRN Administration Sodium Chloride 500 ml 12/10/17 16:57 Normal Saline IV PRN PRN Sodium Chloride 500 ml 12/11/17 10:29 Normal Saline IV PRN PRN Sodium Chloride 500 ml 12/13/17 09:27 Normal Saline IV PRN PRN Spironolactone 12.5 mg 12/13/17 09:30 12/13/17 11:51 Aldactone PO 12/13/17 09:31 12.5 mg ONE TIME ONE Administration Vancomycin HCl 1 each 12/07/17 11:09 Pharmacy Consult - Vancomycin 12/07/17 11:10 O ONE Vancomycin HCl 1 each 12/07/17 11:21 Pharmacy Consult - Vancomycin 12/07/17 11:22 O ONE - Constitutional no acute distress Comments: lethargic - Routine HEENT Exam Head: Present: normocephalic, atraumatic - Routine Respiratory Exam Present: decreased breath sounds. Absent: accessory muscle use Comments: rales right base - Routine Cardiovascular Exam Present: RRR - Urinary Catheter Management Urethral Cath placed during this visit: yes Insertion date: 12/07/17 Insertion time: 19:45 Results - Laboratory Findings Laboratory: Laboratory Results - last 48 hr 12/10/17 12/13/17 12/13/17 20:09 09:27 18:38 WBC RBC Hgb Hct MCV MCH MCHC RDW Std Deviation Plt Count 43 L D MPV Immature Gran % (Auto) Neut % (Auto) Lymph % (Auto) [place] % (Auto) Eos % (Auto) Baso % (Auto) Neut # (Auto) Lymph # (Auto) [place] # (Auto) Eos # (Auto) Baso # (Auto) Abs Immat Gran (auto) Neutrophils % (Manual) Band Neutrophils % Lymphocytes % (Manual) Monocytes % (Manual) Eosinophils % (Manual) Metamyelocytes % Neutrophils # (Manual) Band Neutrophils # Lymphocytes # (Manual) Monocytes # (Manual) Eosinophils # (Manual) Metamyelocytes # Nucleated RBCs Poikilocytosis Anisocytosis Macrocytosis Tear Drop Cells Ovalocytes Helmet Cells Schistocytes RBC Morph Comment Turbidity Sodium Potassium Chloride Carbon Dioxide Anion Gap BUN Creatinine GFR Calculation BUN/Creatinine Ratio Glucose Calculated Osmolality Calcium Phosphorus Magnesium Total Bilirubin Icterus Index AST ALT Alkaline Phosphatase Lactate Dehydrogenase Total Protein Albumin Globulin Albumin/Globulin Ratio Specimen Hemolysis BM Aspirate Exam Vancomycin Trough Random Vancomycin Blood Type O Positive Antibody Screen Negative Crossmatch (AHG) See Detail Blood Product Request 1 unit ppp issued 12/14/17 12/14/17 12/14/17 03:52 03:52 13:22 WBC 4.5 RBC 2.27 L Hgb 7.7 L Hct 22.9 L MCV 100.9 H MCH 33.9 MCHC 33.6 RDW Std Deviation 69.0 H Plt Count 34 L MPV 11.2 Immature Gran % (Auto) Not performed Neut % (Auto) Not performed Lymph % (Auto) Not performed [place] % (Auto) Not performed Eos % (Auto) Not performed Baso % (Auto) Not performed Neut # (Auto) Not performed Lymph # (Auto) Not performed [place] # (Auto) Not performed Eos # (Auto) Not performed Baso # (Auto) Not performed Abs Immat Gran (auto) Not performed Neutrophils % (Manual) 71.0 H Band Neutrophils % 9.0 H Lymphocytes % (Manual) 8.0 L Monocytes % (Manual) 9.0 Eosinophils % (Manual) 1.0 Metamyelocytes % 2.0 H Neutrophils # (Manual) 3.2 Band Neutrophils # 0.4 Lymphocytes # (Manual) 0.4 L Monocytes # (Manual) 0.4 Eosinophils # (Manual) 0.0 Metamyelocytes # 0.1 Nucleated RBCs 3 Poikilocytosis 2+ Anisocytosis 2+ Macrocytosis Tear Drop Cells 1+ Ovalocytes Helmet Cells 1+ Schistocytes 1+ RBC Morph Comment Abnormal Turbidity < 20 Sodium 143 Potassium 3.6 Chloride 106 Carbon Dioxide 28 Anion Gap 9 BUN 28.0 H Creatinine 1.3 GFR Calculation 57 BUN/Creatinine Ratio 22 Glucose 125 H Calculated Osmolality 282 H Calcium 13.3 H* Phosphorus 3.0 Magnesium 2.0 Total Bilirubin 1.00 Icterus Index < 2 AST 131 H D ALT 68 Alkaline Phosphatase 574 H D Lactate Dehydrogenase 2433 H Total Protein 4.9 L Albumin 2.2 L Globulin 2.7 Albumin/Globulin Ratio 0.8 L Specimen Hemolysis < 15 BM Aspirate Exam Vancomycin Trough Random Vancomycin 29.17 Blood Type Antibody Screen Crossmatch (AHG) Blood Product Request 12/14/17 12/15/17 12/15/17 17:20 04:12 04:12 WBC 3.2 L RBC 2.10 L Hgb 7.2 L Hct 21.5 L MCV 102.4 H MCH 34.3 H MCHC 33.5 RDW Std Deviation 68.3 H Plt Count 15 L* D MPV TNP Immature Gran % (Auto) [employer]ile Supervisor Neut % (Auto) Sterile Supervisor Lymph % (Auto) Sterile Supervisor [place] % (Auto) Sterile Supervisor Eos % (Auto) Sterile Supervisor Baso % (Auto) Sterile Supervisor Neut # (Auto) Sterile Supervisor Lymph # (Auto) Sterile Supervisor [place] # (Auto) Sterile Supervisor Eos # (Auto) Sterile Supervisor Baso # (Auto) Sterile Supervisor Abs Immat Gran (auto) Sterile Supervisor Neutrophils % (Manual) 78.0 H Band Neutrophils % 7.0 H Lymphocytes % (Manual) 13.0 L Monocytes % (Manual) 1.0 Eosinophils % (Manual) Metamyelocytes % 1.0 H Neutrophils # (Manual) 2.5 Band Neutrophils # 0.2 Lymphocytes # (Manual) 0.4 L Monocytes # (Manual) 0.0 Eosinophils # (Manual) Metamyelocytes # 0.0 Nucleated RBCs 1 Poikilocytosis 2+ Anisocytosis 2+ Macrocytosis 1+ Tear Drop Cells Ovalocytes 1+ Helmet Cells 1+ Schistocytes 1+ RBC Morph Comment Abnormal Turbidity < 20 Sodium 143 Potassium 4.3 D Chloride 104 Carbon Dioxide 32 H Anion Gap 7 BUN 36.0 H Creatinine 1.4 GFR Calculation 52 BUN/Creatinine Ratio 26 Glucose 97 Calculated Osmolality 283 H Calcium 12.3 H Phosphorus Magnesium 2.0 Total Bilirubin 1.40 H Icterus Index < 2 AST 109 H ALT 62 Alkaline Phosphatase 489 H Lactate Dehydrogenase Total Protein 4.4 L Albumin 2.0 L Globulin 2.4 Albumin/Globulin Ratio 0.8 L Specimen Hemolysis < 15 BM Aspirate Exam Send out Vancomycin Trough Random Vancomycin Blood Type Antibody Screen Crossmatch ([facility]) Blood Product Request 12/15/17 12/15/17 07:53 07:53 WBC RBC Hgb Hct MCV MCH MCHC RDW Std Deviation Plt Count MPV Immature Gran % (Auto) Neut % (Auto) Lymph % (Auto) [place] % (Auto) Eos % (Auto) Baso % (Auto) Neut # (Auto) Lymph # (Auto) [place] # (Auto) Eos # (Auto) Baso # (Auto) Abs Immat Gran (auto) Neutrophils % (Manual) Band Neutrophils % Lymphocytes % (Manual) Monocytes % (Manual) Eosinophils % (Manual) Metamyelocytes % Neutrophils # (Manual) Band Neutrophils # Lymphocytes # (Manual) Monocytes # (Manual) Eosinophils # (Manual) Metamyelocytes # Nucleated RBCs Poikilocytosis Anisocytosis Macrocytosis Tear Drop Cells Ovalocytes Helmet Cells Schistocytes RBC Morph Comment Turbidity Sodium Potassium Chloride Carbon Dioxide Anion Gap BUN Creatinine 1.3 GFR Calculation 57 BUN/Creatinine Ratio Glucose Calculated Osmolality Calcium Phosphorus Magnesium Total Bilirubin Icterus Index AST ALT Alkaline Phosphatase Lactate Dehydrogenase Total Protein Albumin Globulin Albumin/Globulin Ratio Specimen Hemolysis BM Aspirate Exam Vancomycin Trough 20.67 H Random Vancomycin Blood Type Antibody Screen Crossmatch (AHG) Blood Product Request - Diagnostic Findings Chest x-ray: report reviewed, image reviewed Assessment and Plan (1) Neuroendocrine carcinoma metastatic to liver Status: Acute Assessment and plan: 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 prognosis is poor Current Visit: Yes (2) Acute hypoxemic respiratory failure Status: Acute Assessment and plan: continue O2, neb treatments I suggest DNR status on this patient Current Visit: Yes - Assessment and Plan Acute Hypoxic Respiratory Failure Sepsis RUL pneumonia Met Cancer, Bx pending RA/Immune compromised - Imuran/Enbrel Pancytopenia - likely 2/2 sepsis, ? cancer Likely COPD Tobaccoism Hyponatremia - improved Dysphagia - alt diet - Time Spent With Patient Total time spent is greater than 50% in coordination of care (as documented) at patient's floor/unit and/or counseling patient: less than 15 minutes
[2017-12-15] MEDS: D5-1/2NS 1,000 ML IV SCH (14:10)
--- NOTE | 2017-12-15 15:14 | Progress Note ---
<Sharifa Duarte - Last Filed: 12/15/17 15:11> Oncology Subjective Reclining in hospital bed, at bedside. Patient opens eyes, answers questions briefly but lethargic. General: No fever, no night sweats Eyes: No redness, no pain, no diplopia ENT: No mouth sores, no trouble swallowing Cardiac: No chest pain no palpitations Pulmonary: Positive cough, positive shortness of air Abdomen: No pain, no nausea vomiting, no diarrhea or constipation : crews Musculoskeletal: Rheumatoid arthritis/back pain Neurological: No headaches, no focal weakness Skin: No rash, no sores Psychiatric: No anxiety, no depression Exam Vital signs: Temperature 97.4 F 12/15/17 08:00 Pulse Rate 134 H 12/15/17 12:00 Respiratory Rate 25 H 12/15/17 14:30 Blood Pressure 95/69 12/15/17 11:00 Pulse Oximetry 94 12/15/17 14:30 - Constitutional no acute distress, cooperative, somnolent - Routine HEENT Exam Head: Present: normocephalic Eye: Present: EOMI ENT: Present: mucous membranes moist - Routine Neck Exam Present: supple. Absent: lymphadenopathy - Routine Respiratory Exam Present: decreased breath sounds, crackles (bibasilar) - Routine Cardiovascular Exam Present: RRR, no murmur - Routine Abdominal Exam Present: soft, normoactive bowel sounds, non tender - Routine Extremities Exam Present: edema (1+2+ pedal edema bilateral extremities.) - Routine Skin Exam Present: intact, dry, pallor, petechiae - Routine Neurological Exam Present: alert, altered mental status (answers questions appropriately, but slow with responses.), moving all extremities - Routine Psychiatric Exam Present: cooperative Oncology Results - Labs CBC & Chem 7: 12/15/17 04:12 12/15/17 07:53 Labs: Short CBC 12/15/17 Range/Units 04:12 WBC 3.2 L (4.5-11.0) T/MM3 Hgb 7.2 L (13.5-17.5) GM/DL Hct 21.5 L (41-53) % Plt Count 15 L* D (130-400) T/MM3 BMP 12/15/17 12/15/17 04:12 07:53 Sodium 143 Potassium 4.3 D Chloride 104 Carbon Dioxide 32 H BUN 36.0 H Creatinine 1.4 1.3 Glucose 97 Calcium 12.3 H Liver Function 12/15/17 Range/Units 04:12 Total Bilirubin 1.40 H (0.20-1.30) MG/DL AST 109 H (17-59) U/L ALT 62 (21-72) U/L Alkaline Phosphatase 489 H (38-126) U/L Albumin 2.0 L (3.5-5.0) g/dL - Impressions = = = = = = = = = = = = = = = = = = = = = = = = = = = = = = = = = = = = = = = = = = = = = = = = = = = = = = = = = = = Date of Exam: 12/15/17 Ordering Provider: Sara Espinosa APRN Type of Exam(s): XR chest 1V Reason for Exam(s): infiltrates Indication: infiltrates PROCEDURE: XR chest 1V: Encounter: Initial Comparison: December 14, 2017 Findings: Slight interval improvement in aeration of the right lower lobe with continued severe right-sided airspace consolidation. Left PICC line remains in stable position. Small bilateral pleural effusions. Left basilar atelectasis is slightly increased. No pneumothorax. Heart size and mediastinal contours are stable. Impression: Slight improvement in aeration of the right lower lobe with continued severe airspace disease. . Assessment and Plan Assessment and Plan: 1. 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 Creatinine 1.3 and elevated BUN. Had Zometa. Calcium is increasing. He is not a good candidate for hydration to treat the hypercalcemia and PTH is low suggesting this is hypercalcemia of malignancy. Bone marrow biopsy to document bone marrow involvement done today. Discussed therapy with Carboplatin and etoposide versus comfort care. Patient and family will decide by tomorrow. Discussed with Dr. Vivar. Therapy would be prolonged hospitalization with blood and platelet support and he would not qualify for SNU. His ability to survive therapy would be limited and the comorbid conditions of RA have dramatically reduced performance status. 2. 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 12/14/17: Platelets 35K. 12/15/17: Platelets 15 K. patient to receive one unit platelets today. 3. Pneumonia with culture growing Pseudomonas, MSSA, Hemophilus influenza, and yeast. Presented with Sepsis with elevated procalciton. 4. RA on Embryl Immuran. These medications have been discontinued 5. Severe deconditioning Plan Dr. Samayoa had long discussion with patient and , Maribeth. Reviewed small cell /neuroendocrine cancer, metastatic and is aggressive with growth and the cancer is contributing to pneumonia and decreased bone marrow function. Feel his cancer is aggressive, has limited life expectancy if cancer is not treated. Note , prior to this hospitalization, patient was ambulatory, working, and describes as "tough" . Reviewed potential toxicities with treatment, including worsening pneumonia, other infections, bleeding, transfusion reaction, and potentially life-threatening. Following discussion, patient and desire chemotherapy be initiated. Dr. Samayoa will visit with Dr. Vivar. - Time Spent With Patient Total time spent is greater than 50% in coordination of care (as documented) at patient's floor/unit and/or counseling patient: 25 - 35 minutes <Lizzette Samayoa - Last Filed: 12/16/17 15:42> Exam Vital signs: Temperature 97.8 F 12/16/17 11:00 Pulse Rate 120 H 12/16/17 12:00 Respiratory Rate 20 12/16/17 12:01 Blood Pressure 123/80 12/16/17 11:00 Pulse Oximetry 100 12/16/17 12:01 Oncology Results - Labs CBC & Chem 7: 12/16/17 02:12 12/16/17 02:12 Labs: Short CBC 12/15/17 12/16/17 Range/Units 18:35 02:12 WBC 2.7 L (4.5-11.0) T/MM3 Hgb 7.9 L (13.5-17.5) GM/DL Hct 23.2 L (41-53) % Plt Count 14 L* 27 L* D (130-400) T/MM3 BMP 03/07/18 02:12 Sodium 143 Potassium 4.1 Chloride 104 Carbon Dioxide 32 H BUN 40.0 H Creatinine 1.5 D Glucose 134 H Calcium 11.1 H D Liver Function 12/16/17 Range/Units 02:12 Total Bilirubin 1.70 H (0.20-1.30) MG/DL AST 88 H (17-59) U/L ALT 48 (21-72) U/L Alkaline Phosphatase 453 H (38-126) U/L Albumin 2.2 L (3.5-5.0) g/dL Assessment and Plan Assessment and Plan: I have examined the patient. I reviewed the chart and I discussed the critical situation of advanced disease and goal of therapy with the patient and his . We discussed the role of chemotherapy and potential toxicities. The patient and his would like to proceed with treatment. Chemotherapy using carboplatin AUC of 4 and etoposide 100 mg daily for 3 days will be started in the morning. - Time Spent With Patient Total time spent is greater than 50% in coordination of care (as documented) at patient's floor/unit and/or counseling patient:
[2017-12-15] MEDS: METHYLPREDNISOLONE SOD SUCC 125mg/2ml INJECTION IVP SCH ×2 (16:03→20:21)
--- NOTE | 2017-12-15 17:30 | Progress Note ---
- Date 12/15/17 Subjective: F/U: Sepsis, pneumonia Resting in bed. Answers questions with brief answers. Little change to breathing -still very congested and short, cough at time. Hard to move up sputum. No nausea. Oral drive decrease. Swallowing difficult. Denies nausea. Reports pain controlled with MS. Feels very tired and weak in general. Objective Vital signs: Temperature 98.6 F 12/15/17 15:30 Pulse Rate 130 H 12/15/17 16:00 Respiratory Rate 22 12/15/17 16:00 Blood Pressure 105/59 12/15/17 16:00 Pulse Oximetry 93 12/15/17 16:00 Height/Weight/BMI: Height 1.7 m Weight 77.7 kg Body Mass Index 21.4 - Constitutional Present: moderate distress, well nourished, well developed, other (Very tired and weak appearing) - Routine HEENT Exam Head: Present: normocephalic, atraumatic Eye: Present: EOMI, PERRL ENT: Present: mucous membranes dry - Routine Respiratory Exam Present: decreased breath sounds, rales, respiratory distress, rhonchi, distant breath sounds - Routine Cardiovascular Exam Present: no murmur, tachycardia - Routine Abdominal Exam Present: soft, non distended, non tender. Absent: normoactive bowel sounds ( decreased) - Routine Extremities Exam Present: edema (+3 bilateral upper and lower edema) - Routine Musculoskeletal Exam Musculoskeletal: Present: no clubbing or cyanosis - Routine Skin Exam Present: warm. Absent: dry (Moist) - Routine Psychiatric Exam Comments: Somnolent Results - Labs CBC & Chem 7: 12/15/17 04:12 12/15/17 07:53 Microbiology Results: Microbiology 12/10/17 15:57 Peripheral/Iv Start Blood Culture - Final No Growth After 5 Days 12/10/17 16:00 Peripheral/Iv Start Blood Culture - Final No Growth After 5 Days 12/07/17 12:45 Sputum, Expectorated Gram Stain - Final 12/07/17 12:45 Sputum, Expectorated Sputum Culture - Final Pseudomonas aeruginosa Haemophilus influenzae Staphylococcus aureus Normal Resp Pallavi incl. Yeast 12/07/17 18:13 Urine Legionella Urinary Antigen - Final 12/07/17 18:13 Urine Streptococcus pneumoniae Antigen (M - Final Assessment and Plan (1) Septic shock Current visit: Yes Status: Acute (2) Pneumonia Current visit: Yes Status: Acute Assessment and Plan: IMPRESSION Sepsis secondary to Right sided pneumonia Septic shock based on lactate of 4.5 (per CMS) Severe sepsis based on 2016 Surviving Sepsis Guidelines Organ dysfunction = MAP <70, hyperbilirubinemia (2.4), thrombocytopenia ( 16) SOFA on admission = 7, presumed baseline of 0 Pneumonia -right upper lobe and right lower lobe-sputum positive for Pseudomonas and MSSA Acute Hypoxia -currently on 2 L 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 Acute on chronic Hyponatremia (POA) (baseline 131-134) Pancytopenia (POA) including platelet count of 16 and hgb of 8.9 Hyperbilirubinemia, elevated AST and Alk phos, POA Hypercalcemia-worsening Hypoalbuminemia Elevated LDH Elevated CRP and procalcitonin, secondary to acute infection Severe PCM - prealbumin undetectable Thrush. Macrocytic anemia Rheumatoid arthritis Immunocompromised Chronic antritis Tobacco dependency Encephalopathy Sinus tachycardia PLAN Dr Samayoa discussed with family - with small cell cancer, only hope for survival is chemotherapy. With patient's significant decline, uncertain if pt could survive chemo. Will continue with antimicrobial therapy. Add Solu-Medrol to try to decrease pulmonary inflammation. Platelet transfusion given due to declining platelets of 15. IVF changed to D5 1/2NS at 75. Lasix given earlier to help motivate fluid. Will repeat dose this evening. Case discussed with CCU nursing and Dr Samayoa. Time spent with patient care 25 minutes. DVT Prophylaxis: SCD's Resuscitation Status: Full Code - Time spent with patient Time with patient PN: 25 minutes - Physician Narrative Physician: Wesley Vivar MD Narrative: Date: 12/15/17 Time: 1727 Hospital Course Summary Disclaimer: The visit summary below is not to be considered part of the above Progress Note. Hospital Course: 12/07/17 Admit, inpatient status, to CCU; Patient is critically ill. Dr. Vivar attending. Septic shock based on CMS and Severe Sepsis based on Surviving Sepsis He received full 30 mL/kg bolus in ED. If unable to keep MAP >65, will need to start norepinephrine, which would indicate shock based on 2016 rec. Initial lactate was 4.5; if lactate is still elevated >4 on recheck, this would also indicate shock based on 2016 recommendations. Blood cultures already drawn. Repeat physical exam done. Repeat procalcitonin in am. Sinus tachycardia has improved after fluid boluses, from 138-105. Right sided pneumonia in an immunocompromised patient with significant smoking history. Cefepime was started in the ED -- will continue with this and add vancomycin and levofloxacin d/t immunocompromised state. Check for strep pneumo and legionella. Check sputum culture. Consult Dr. Mckinney; suspect he may require additional respiratory intervention and with smoking hx likely has underlying COPD. Ev Pan. Ask RT to provide tobacco cessation information. Nicotine patch ordered. Hold RA medications including Enbrel & Imuran. Pancytopenia Suspect d/t sepsis. If no improvement in next few days consider heme consultation. Platelets only 16 on admission. Will give platelet pack x1. Lovenox is contraindicated. SCD for DVT prevention. Macrocytic anemia - check iron studies, folate, vitamin B12. Hyperbilirubinemia Suspect d/t sepsis. Hepatomegaly and RUQ tenderness. He had liver sonogram in Aug, 2017 which was normal. Check INR. Hyponatremia and hypercalcemia Suspect d/t dehydration. Continue IVF and check in am. Advanced directives None. Requests full resuscitation. 12/08/17 Continue with levofloxacin, cefepime and vancomycin for pulmonary coverage. Neb treatments and acapella to continue. Monitor saturations and work of breathing - on 2L currently. Will have speech check swallow secondary to coughing with swallow. Hemoglobin decreased to 6.7 - transfusion initiated. Iron/B12/Folate tests pending. Platelets increased to 30K. Monitor. No Lovenox due to thrombocytopenia. Sodium with slight improvement to 128, but potassium decreased to 3.7. Will change IVF to NS with 20KCl and 20KPhos and decrease rate to 75cc/hr. BP improved. Recheck CMP, Mg, Phos, Procalcitonin, and CBC secondary to resolving septic shock. Continues to need close nursing care and support, continue CCU monitoring. 12/09/17 Continue with levofloxacin, cefepime and vancomycin for pulmonary coverage. Neb treatments and acapella to continue. Monitor saturations and work of breathing - on 2L currently. Start Mycelex lola for thrush. Speech check recommends pureed diet as very difficult to chew foods - may need to upgrade is not liking pureed consistency. Platelets decreased to 20K. Monitor. Give platelet pack. Hemoglobin improved to 8.2 post transfusion yesterday. Sodium improvement to 134, with potassium and phos normal at 4.2 and 4.3 respectively. Continue IVF to NS with 20KCl and 20KPhos but decrease rate to 50cc/hr. BP improved. HR still in 115 range. Start Bladder retraining - possible discontinue Rivas in near future. Start Miralax daily to help bowel function - hold with loose stool. PT/OT consult to help improve strength. Can transfer to medical floor for continuation of care. 12/10/17 The patient became confused last night and was pulling off his oxygen and pulled out his IV. He is more calm at this time but is still confused. With his severity of illness, will transfer back to intensive care when a bed is open. In the meantime will have his nurse stay close to his room and obtain continuous oximetry. Dr. Galarza was called and consulted regarding his pancytopenia. We'll check PTH regarding hypercalcemia. His hypercalcemia is likely worse than it appears since he also has hypoalbuminemia. Hold IV fluids for now. He is 9 L up on fluids. May require diuresis. Continue Rivas catheter for now. Check ammonia level regarding altered mental status. Continue with levofloxacin, cefepime and vancomycin for pneumonia with immunosuppression. Neb treatments and acapella to continue. Monitor saturations and work of breathing - now requiring 4 L PT/OT consult. 12/11/17 The patient had recurrence of elevated lactate yesterday despite continued treatment with triple antibiotics. Heart rate was back up to 130. The patient was given IV fluids. This morning hemoglobin is dropped to 7.9 and platelets are 18,000. Discussed with Dr. Galarza and we will give 1 platelet pack and 1 unit of blood. There is concern for occult malignancy and we will obtain a CT head, chest, abdomen and pelvis all without contrast today. Regarding his elevated calcium, PTH was low. Await results of CAT scans. Regarding Pseudomonas and MSSA pneumonia, continue Levaquin. Stop cefepime. Continue vancomycin for now until blood cultures have returned. 12/12/17 Continue levofloxacin and vancomycin for antimicrobial coverage. Dr Galarza considering initiation of chemotherapy. Discussed with Dr Galarza about patient significantly declined status-concern currently too ill to start chemo. Worry that a large component of patient's acute problems are due to his cancerous process - uncertain if will make much gains without treating cancer, but uncertain how well he could tolerate chemo. Ultimately decided to wait until final path report returns before initiating chemo. Dr Galarza starting treatments to help protect from tumor lysis. IVF change to D5W with 2amps Bicarb at 75cc/hr to alkalinize urine. 12/13/17 More somnolent and weak this afternoon. Oral drive decreased. Continue levofloxacin and vancomycin for antimicrobial coverage. Increase rate of D5W with 2amps Bicarb to 100 cc/hr. Did give Lasix 20mg IV to help minimize edema and increase urine output. Zometa initiated by Dr Galarza to help hypercalcemia. Cautious oral intake secondary to somnolence. Continue pain control. Restart cefepime due to worsening pneumonia. 12/14/17 Dr Samayoa discussed with family - with small cell cancer, only hope for survival is chemotherapy. With patient's significant decline, uncertain if pt could survive chemo. Will continue with antimicrobial therapy. Add Solu-Medrol to try to decrease pulmonary inflammation. Platelet transfusion given due to declining platelets of 15. IVF changed to D5 1/2NS at 75. Lasix given earlier to help motivate fluid. Will repeat dose this evening.
[2017-12-15] MEDS: ALLOPURINOL 100 MG TABLET PO SCH (18:33)
[2017-12-16] MEDS: CEFEPIME 1 GM in NS 50 ML IV SCH ×4 (03:00→21:02)
[2017-12-16] MEDS: METHYLPREDNISOLONE SOD SUCC 125mg/2ml INJECTION IVP SCH ×4 (03:01→21:03)
[2017-12-16] MEDS: D5-1/2NS 1,000 ML IV SCH ×2 (03:01→22:26)
[2017-12-16] MEDS: ALBUTEROL/IPRATROPIUM 2.5mg-0.5mg/3ml NEB AEROSOL SCH ×6 (04:14→23:33)
[2017-12-16] MEDS: NICOTINE PATCH REMOVAL TD SCH (09:00)
--- NOTE | 2017-12-16 09:11 | XRay Report ---
Indication: F/U PROCEDURE: XR chest 1V: Encounter: Initial Comparison: December 15, 2017 Findings: Left PICC line remains in place. Worsening airspace consolidation in the right lower lobe with severe diffuse airspace disease and mass seen in the right chest. Increasing moderate right pleural effusion. No pneumothorax. Small left pleural effusion is grossly stable with left basilar airspace consolidation. Heart size and mediastinal contours are stable. Impression: Worsening appearance of the right lung. .
--- NOTE | 2017-12-16 09:27 | Pulmonology Progress Note ---
Subjective Principal diagnosis: pneumonia Interval history: Pt. resting quietly in bed. States he is still having SOB, fatigued, mumbles. Exam Vital signs: Temperature 98.0 F 12/16/17 04:00 Pulse Rate 101 H 12/16/17 07:00 Respiratory Rate 18 12/16/17 07:00 Blood Pressure 148/88 H 12/16/17 07:00 Pulse Oximetry 100 12/16/17 07:00 Inpatient Medications: Generic Name Dose Route Start Last Admin Trade Name Freq PRN Reason Stop Dose Admin Hydrocodone Bitart/Acetaminophen 1 tab 12/07/17 11:21 12/12/17 03:02 [place] 5/325 PO 1 tab QID PRN Administration Pain Albuterol/Ipratropium 3 ml 12/07/17 16:00 12/16/17 06:53 Duoneb AEROSOL 3 ml Q4HR RANDALL Administration Allopurinol 300 mg 12/12/17 13:45 12/15/17 09:27 Zyloprim PO 300 mg DAILY RANDALL Administration Allopurinol 100 mg 12/15/17 18:30 12/15/17 18:33 Zyloprim PO 100 mg DAILY RANDALL Administration Benzonatate 100 mg 12/07/17 12:48 Tessalon Perles PO TID PRN Cough Bisacodyl 10 mg 12/07/17 12:53 Dulcolax RECTALLY DAILY PRN Constipation Clotrimazole 10 mg 12/09/17 12:00 12/15/17 22:05 Mycelex Pj MM Not Given 5XD RANDALL Fluticasone Propionate 1 spray 12/07/17 11:25 Flonase EA NOSTRIL DAILY PRN PRN orders Levofloxacin/Dextrose 750 mg in 150 mls @ 100 mls/hr 12/07/17 11:21 12/15/17 12:44 Levaquin Premix IV Infused Q24H RANDALL Infusion Cefepime HCl 1 gm/ Sodium 50 mls @ 200 mls/hr 12/15/17 09:00 12/16/17 03:20 Chloride IV Infused Q6HR RANDALL Infusion Vancomycin HCl 1,000 mg/ 250 mls @ 250 mls/hr 12/15/17 12:00 12/15/17 13:58 Sodium Chloride IV Infused Q24H RANDALL Infusion Dextrose/Sodium Chloride 1,000 mls @ 75 mls/hr 12/15/17 13:30 03/07/18 07:00 D5-1/2ns IV 75 mls/hr .[id number] RANDALL Infusion Lorazepam 0.25 mg 12/07/17 12:48 12/13/17 04:22 Ativan Inj IVP 0.25 mg Q4H PRN Administration Air hunger/Anxiety Magnesium Hydroxide 30 ml 12/07/17 12:53 Mom PO DAILY PRN Constipation Methylprednisolone Sodium Succinate 125 mg 12/15/17 15:30 12/16/17 03:01 Solu-Medrol IVP 125 mg Q6HR RANDALL Administration Morphine Sulfate 4 mg 12/14/17 11:20 12/15/17 15:16 Morphine Sulfate Inj IVP 4 mg Q2HR PRN Administration Pain Nicotine 21 mg 12/07/17 10:45 12/15/17 09:28 Nicoderm TD 21 mg DAILY RANDALL Administration Nicotine 1 removal 12/08/17 09:00 12/15/17 10:03 Nicotine Patch Removal TD 1 removal DAILY RANDALL Administration Ondansetron HCl 4 mg 12/07/17 11:21 Zofran IVP Q6H PRN Nausea Pharmacy Profile Note 5 ml 12/14/17 11:19 Lidocaine/Maalox/Benadryl Soln PO Q4H PRN Mouth pain Polyethylene Glycol 17 gm 12/09/17 11:00 12/15/17 10:03 Miralax PO Not Given DAILY [facility] Potassium Chloride 20 meq 12/13/17 12:30 12/15/17 17:29 K-Dur 20 Meq Tablet PO Not Given BIDWM [facility] Promethazine HCl/Codeine 5 ml 12/07/17 12:49 Phenergan + Codeine PO Q6HR PRN Cough Sodium Chloride 10 - 80 ml 12/07/17 08:43 12/14/17 12:46 Iv Flush IVF 20 ml PRN PRN Administration [place] Sodium Chloride 2 spray 12/08/17 10:15 12/15/17 20:21 [place] Nasal Moisturizing [place] EA NOSTRIL 2 spray QID RANDALL Administration Sodium Chloride 500 ml 12/13/17 10:04 Normal Saline IV PRN PRN Sodium Chloride 500 ml 12/15/17 09:29 Normal Saline IV PRN PRN Sodium Chloride 500 ml 12/15/17 16:40 Normal Saline IV PRN PRN Sodium Chloride 10 - 80 ml 12/15/17 16:40 Iv Flush IV PRN PRN Flushing Discontinued Medications Generic Name Dose Route Start Last Admin Trade Name Freq PRN Reason Stop Dose Admin Acetaminophen 650 mg 12/11/17 10:30 12/11/17 20:30 Tylenol PO 12/11/17 10:31 325 mg O ONE Administration Albuterol/Ipratropium 3 ml 12/07/17 11:00 12/07/17 16:44 Duoneb AEROSOL Not Given RTQID RANDALL Diphenhydramine HCl 50 mg 12/09/17 10:36 12/09/17 12:51 Benadryl PO 12/09/17 10:37 50 mg ONCE ONE Administration Diphenhydramine HCl 25 mg 12/11/17 10:29 12/11/17 20:30 Benadryl PO 12/11/17 10:30 25 mg ONCE ONE Administration Furosemide 20 mg 12/11/17 10:29 12/11/17 23:59 Lasix IVP 12/11/17 10:30 20 mg O ONE Administration Furosemide 20 mg 12/12/17 14:06 12/12/17 14:47 Lasix IVP 12/12/17 14:07 20 mg ONCE ONE Administration Furosemide 20 mg 12/13/17 09:29 12/13/17 11:51 Lasix IVP 12/13/17 09:30 20 mg ONCE ONE Administration Furosemide 40 mg 12/14/17 11:19 12/14/17 12:14 Lasix IVP 12/14/17 11:20 40 mg O ONE Administration Furosemide 40 mg 12/15/17 09:29 12/15/17 11:44 Lasix IVP 12/15/17 09:30 40 mg O ONE Administration Furosemide 40 mg 12/15/17 17:41 12/15/17 18:32 Lasix IVP 12/15/17 17:42 40 mg O ONE Administration Cefepime HCl 1 gm/ Sodium 100 mls @ 200 mls/hr 12/07/17 08:43 12/07/17 09:33 Chloride IV 12/07/17 09:12 Infused O ONE Infusion Sodium Chloride 1,000 mls @ 1,000 mls/hr 12/07/17 08:43 12/07/17 10:08 Normal Saline IV 12/07/17 09:42 Infused .Q1H ONE Infusion Sodium Chloride 1,000 mls @ 999.9 mls/hr 12/07/17 09:13 12/07/17 11:38 Normal Saline IV 12/07/17 10:12 Infused .Q1H ONE Infusion Cefepime HCl 1 gm/ Sodium 50 mls @ 100 mls/hr 12/07/17 16:00 12/12/17 00:59 Chloride IV Not Given Q6H RANDALL Sodium Chloride 1,000 mls @ 125 mls/hr 12/07/17 11:21 12/08/17 10:31 Normal Saline IV Infused .Q8H RANDALL Infusion Vancomycin HCl 1,250 mg/ 250 mls @ 200 mls/hr 12/08/17 02:00 12/09/17 18:58 Sodium Chloride IV Not Given Q12H RANDALL Vancomycin HCl 1,750 mg/ 500 mls @ 250 mls/hr 12/07/17 14:00 12/07/17 15:00 Sodium Chloride IV 12/07/17 14:01 Infused O ONE Infusion Sodium Chloride 500 mls @ 500 mls/hr 12/08/17 03:40 12/08/17 03:40 Normal Saline IV 12/08/17 04:39 Not Given .Q1H ONE Sodium Chloride 500 mls @ 500 mls/hr 12/08/17 05:30 12/08/17 05:17 Normal Saline IV 12/08/17 06:30 Not Given .Q1H RANDALL Potassium Chloride 20 meq/ 1,014.5455 mls @ 75 mls/hr 12/08/17 09:45 13:00 Potassium Phosphate 20 meq/ IV 0 mls/hr Sodium Chloride .[id number] RANDALL Infusion Potassium Chloride 20 meq/ 1,014.5455 mls @ 50 mls/hr 12/09/17 11:00 05:30 Potassium Phosphate 20 meq/ IV 0 mls/hr Sodium Chloride .[id number] RANDALL Infusion Vancomycin HCl 1,750 mg/ 500 mls @ 250 mls/hr 12/09/17 14:00 12/12/17 08:00 Sodium Chloride IV 12/12/17 07:30 Not Given Q12H RANDALL Sodium Chloride 1,000 mls @ 500 mls/hr 12/10/17 16:53 12/10/17 19:30 Normal Saline IV 12/10/17 18:52 Infused .Q2H ONE Infusion Sodium Chloride 1,000 mls @ 75 mls/hr 12/11/17 18:00 12/12/17 14:46 Normal Saline IV Infused .[id number] RANDALL Infusion Sodium Chloride 500 mls @ 250 mls/hr 12/11/17 15:45 12/11/17 18:20 Normal Saline IV 12/11/17 17:44 Infused .Q2H RANDALL Infusion Vancomycin HCl 1,750 mg/ 500 mls @ 250 mls/hr 12/13/17 08:00 Sodium Chloride IV 12/13/17 08:00 Q24H RANDALL Sodium Bicarbonate 100 meq/ 1,100 mls @ 75 mls/hr 12/12/17 14:00 12/13/17 12: 30 Dextrose IV Infused .[id number] RANDALL Infusion Vancomycin HCl 1,250 mg/ 250 mls @ 200 mls/hr 12/14/17 08:00 12/14/17 11:00 Sodium Chloride IV Infused Q48H RANDALL Infusion Zoledronic Acid 3 mg in 75 mls @ 150 mls/hr 12/13/17 12:00 12/13/17 14:59 Zometa IV 12/13/17 12:29 Infused O ONE Infusion Sodium Bicarbonate 100 meq/ 1,100 mls @ 100 mls/hr 12/13/17 12:30 12/15/17 14 :10 Dextrose IV Infused .Q11H RANDALL Infusion Cefepime HCl 1 gm/ Sodium 100 mls @ 200 mls/hr 12/14/17 19:30 12/15/17 01:35 Chloride IV Infused Q6H RANDALL Infusion Morphine Sulfate 2 mg 12/07/17 12:47 12/14/17 10:38 Morphine Sulfate Inj IVP 2 mg Q2HR PRN Administration Pain Pharmacy Consult 1 each 12/11/17 11:34 Pharmacy Consult - Fall Risk XX 12/11/17 11:35 ONE TIME ONE Potassium Chloride 20 meq 12/12/17 13:58 12/12/17 14:14 K-Dur 20 Meq Tablet PO 12/12/17 13:59 20 meq O ONE Administration Sodium Chloride 500 ml 12/07/17 11:24 12/10/17 16:47 Normal Saline IV 500 ml PRN PRN Administration Sodium Chloride 500 ml 12/09/17 10:36 12/11/17 08:14 Normal Saline IV 500 ml PRN PRN Administration Sodium Chloride 500 ml 12/10/17 16:57 Normal Saline IV PRN PRN Sodium Chloride 500 ml 12/11/17 10:29 Normal Saline IV PRN PRN Sodium Chloride 500 ml 12/13/17 09:27 Normal Saline IV PRN PRN Spironolactone 12.5 mg 12/13/17 09:30 12/13/17 11:51 Aldactone PO 12/13/17 09:31 12.5 mg ONE TIME ONE Administration Vancomycin HCl 1 each 12/07/17 11:09 Pharmacy Consult - Vancomycin 12/07/17 11:10 O ONE Vancomycin HCl 1 each 12/07/17 11:21 Pharmacy Consult - Vancomycin 12/07/17 11:22 O ONE - Constitutional mild distress, cachectic - Routine HEENT Exam Head: Present: normocephalic, atraumatic Eye: Present: EOMI, PERRL ENT: Present: mucous membranes moist - Routine Respiratory Exam Present: decreased breath sounds, rhonchi, crackles - Routine Cardiovascular Exam Present: S1, S2, no murmur, tachycardia - Routine Abdominal Exam Present: soft, non tender Comments: Hypoactive - Routine Extremities Exam Present: edema, non tender, pulses intact. Absent: cyanosis, clubbing, full ROM - Routine Skin Exam Present: intact, dry, warm - Routine Neurological Exam Present: alert, abnormal gait, moving all extremities - Routine Psychiatric Exam Present: normal thought process, cooperative, good judgment - Urinary Catheter Management Urethral Cath placed during this visit: yes Urethral indwelling: Yes Reason for continuing: Prolonged Immobilization Insertion date: 12/07/17 Insertion time: 19:45 Results - Laboratory Findings Laboratory: Laboratory Results - last 48 hr 12/14/17 12/14/17 12/15/17 13:22 17:20 04:12 WBC 3.2 L RBC 2.10 L Hgb 7.2 L Hct 21.5 L MCV 102.4 H MCH 34.3 H MCHC 33.5 RDW Std Deviation 68.3 H Plt Count 15 L* D MPV TNP Immature Gran % (Auto) Egg Sorter Neut % (Auto) Egg Sorter Lymph % (Auto) Egg Sorter [place] % (Auto) Egg Sorter Eos % (Auto) Egg Sorter Baso % (Auto) Egg Sorter Neut # (Auto) Egg Sorter Lymph # (Auto) Egg Sorter [place] # (Auto) Egg Sorter Eos # (Auto) Egg Sorter Baso # (Auto) Egg Sorter Abs Immat Gran (auto) Egg Sorter Neutrophils % (Manual) 78.0 H Band Neutrophils % 7.0 H Lymphocytes % (Manual) 13.0 L Monocytes % (Manual) 1.0 Eosinophils % (Manual) Basophils % (Manual) Metamyelocytes % 1.0 H Myelocytes % Neutrophils # (Manual) 2.5 Band Neutrophils # 0.2 Lymphocytes # (Manual) 0.4 L Monocytes # (Manual) 0.0 Eosinophils # (Manual) Basophils # (Manual) Metamyelocytes # 0.0 Myelocytes # Nucleated RBCs 1 Poikilocytosis 2+ Anisocytosis 2+ Macrocytosis 1+ Ovalocytes 1+ Helmet Cells 1+ Schistocytes 1+ RBC Morph Comment Abnormal Turbidity Sodium Potassium Chloride Carbon Dioxide Anion Gap BUN Creatinine GFR Calculation BUN/Creatinine Ratio Glucose Calculated Osmolality Uric Acid Calcium Magnesium Total Bilirubin Icterus Index AST ALT Alkaline Phosphatase Lactate Dehydrogenase Total Protein Albumin Globulin Albumin/Globulin Ratio Specimen Hemolysis BM Aspirate Exam Send out Vancomycin Trough Random Vancomycin 29.17 Blood Type Antibody Screen Crossmatch (AHG) Blood Product Request 12/15/17 12/15/17 12/15/17 04:12 07:53 07:53 WBC RBC Hgb Hct MCV MCH MCHC RDW Std Deviation Plt Count MPV Immature Gran % (Auto) Neut % (Auto) Lymph % (Auto) [place] % (Auto) Eos % (Auto) Baso % (Auto) Neut # (Auto) Lymph # (Auto) [place] # (Auto) Eos # (Auto) Baso # (Auto) Abs Immat Gran (auto) Neutrophils % (Manual) Band Neutrophils % Lymphocytes % (Manual) Monocytes % (Manual) Eosinophils % (Manual) Basophils % (Manual) Metamyelocytes % Myelocytes % Neutrophils # (Manual) Band Neutrophils # Lymphocytes # (Manual) Monocytes # (Manual) Eosinophils # (Manual) Basophils # (Manual) Metamyelocytes # Myelocytes # Nucleated RBCs Poikilocytosis Anisocytosis Macrocytosis Ovalocytes Helmet Cells Schistocytes RBC Morph Comment Turbidity < 20 Sodium 143 Potassium 4.3 D Chloride 104 Carbon Dioxide 32 H Anion Gap 7 BUN 36.0 H Creatinine 1.4 1.3 GFR Calculation 52 57 BUN/Creatinine Ratio 26 Glucose 97 Calculated Osmolality 283 H Uric Acid Calcium 12.3 H Magnesium 2.0 Total Bilirubin 1.40 H Icterus Index < 2 AST 109 H ALT 62 Alkaline Phosphatase 489 H Lactate Dehydrogenase Total Protein 4.4 L Albumin 2.0 L Globulin 2.4 Albumin/Globulin Ratio 0.8 L Specimen Hemolysis < 15 BM Aspirate Exam Vancomycin Trough 20.67 H Random Vancomycin Blood Type Antibody Screen Crossmatch (AHG) Blood Product Request 12/15/17 12/15/17 12/15/17 09:29 10:41 16:41 WBC RBC Hgb Hct MCV MCH MCHC RDW Std Deviation Plt Count MPV Immature Gran % (Auto) Neut % (Auto) Lymph % (Auto) [place] % (Auto) Eos % (Auto) Baso % (Auto) Neut # (Auto) Lymph # (Auto) [place] # (Auto) Eos # (Auto) Baso # (Auto) Abs Immat Gran (auto) Neutrophils % (Manual) Band Neutrophils % Lymphocytes % (Manual) Monocytes % (Manual) Eosinophils % (Manual) Basophils % (Manual) Metamyelocytes % Myelocytes % Neutrophils # (Manual) Band Neutrophils # Lymphocytes # (Manual) Monocytes # (Manual) Eosinophils # (Manual) Basophils # (Manual) Metamyelocytes # Myelocytes # Nucleated RBCs Poikilocytosis Anisocytosis Macrocytosis Ovalocytes Helmet Cells Schistocytes RBC Morph Comment Turbidity Sodium Potassium Chloride Carbon Dioxide Anion Gap BUN Creatinine GFR Calculation BUN/Creatinine Ratio Glucose Calculated Osmolality Uric Acid Calcium Magnesium Total Bilirubin Icterus Index AST ALT Alkaline Phosphatase Lactate Dehydrogenase Total Protein Albumin Globulin Albumin/Globulin Ratio Specimen Hemolysis BM Aspirate Exam Vancomycin Trough Random Vancomycin Blood Type O Positive Antibody Screen Negative Crossmatch ([place]) See Detail Blood Product Request 1 unit ppp issued 1 unit pc issued 12/15/17 12/15/17 12/16/17 18:35 19:17 02:12 WBC 2.7 L RBC 2.34 L Hgb 7.9 L Hct 23.2 L MCV 99.1 MCH 33.8 MCHC 34.1 RDW Std Deviation 61.9 H Plt Count 14 L* 27 L* D MPV 10.1 Immature Gran % (Auto) Not performed Neut % (Auto) Not performed Lymph % (Auto) Not performed [place] % (Auto) Not performed Eos % (Auto) Not performed Baso % (Auto) Not performed Neut # (Auto) Not performed Lymph # (Auto) Not performed [place] # (Auto) Not performed Eos # (Auto) Not performed Baso # (Auto) Not performed Abs Immat Gran (auto) Not performed Neutrophils % (Manual) 81.0 H Band Neutrophils % 3.0 Lymphocytes % (Manual) 8.0 L Monocytes % (Manual) 4.0 Eosinophils % (Manual) 1.0 Basophils % (Manual) 1.0 Metamyelocytes % 1.0 H Myelocytes % 1.0 H Neutrophils # (Manual) 2.2 Band Neutrophils # 0.1 Lymphocytes # (Manual) 0.2 L Monocytes # (Manual) 0.1 Eosinophils # (Manual) 0.0 Basophils # (Manual) 0.0 Metamyelocytes # 0.0 Myelocytes # 0.0 Nucleated RBCs 5 Poikilocytosis 2+ Anisocytosis 2+ Macrocytosis Ovalocytes 1+ Helmet Cells 1+ Schistocytes RBC Morph Comment Abnormal Turbidity Sodium Potassium Chloride Carbon Dioxide Anion Gap BUN Creatinine GFR Calculation BUN/Creatinine Ratio Glucose Calculated Osmolality Uric Acid Calcium Magnesium Total Bilirubin Icterus Index AST ALT Alkaline Phosphatase Lactate Dehydrogenase Total Protein Albumin Globulin Albumin/Globulin Ratio Specimen Hemolysis BM Aspirate Exam Vancomycin Trough Random Vancomycin Blood Type Antibody Screen Crossmatch (AHG) Blood Product Request 1 unit ppp issued 12/16/17 12/16/17 02:12 02:12 WBC RBC Hgb Hct MCV MCH MCHC RDW Std Deviation Plt Count MPV Immature Gran % (Auto) Neut % (Auto) Lymph % (Auto) [place] % (Auto) Eos % (Auto) Baso % (Auto) Neut # (Auto) Lymph # (Auto) [place] # (Auto) Eos # (Auto) Baso # (Auto) Abs Immat Gran (auto) Neutrophils % (Manual) Band Neutrophils % Lymphocytes % (Manual) Monocytes % (Manual) Eosinophils % (Manual) Basophils % (Manual) Metamyelocytes % Myelocytes % Neutrophils # (Manual) Band Neutrophils # Lymphocytes # (Manual) Monocytes # (Manual) Eosinophils # (Manual) Basophils # (Manual) Metamyelocytes # Myelocytes # Nucleated RBCs Poikilocytosis Anisocytosis Macrocytosis Ovalocytes Helmet Cells Schistocytes RBC Morph Comment Turbidity < 20 Sodium 143 Potassium 4.1 Chloride 104 Carbon Dioxide 32 H Anion Gap 7 BUN 40.0 H Creatinine 1.5 D GFR Calculation 48 BUN/Creatinine Ratio 27 H Glucose 134 H Calculated Osmolality 287 H Uric Acid 4.5 Calcium 11.1 H D Magnesium Total Bilirubin 1.70 H Icterus Index < 2 AST 88 H ALT 48 Alkaline Phosphatase 453 H Lactate Dehydrogenase 3291 H Total Protein 4.8 L Albumin 2.2 L Globulin 2.6 Albumin/Globulin Ratio 0.8 L Specimen Hemolysis < 15 BM Aspirate Exam Vancomycin Trough Random Vancomycin Blood Type Antibody Screen Crossmatch (AHG) Blood Product Request - Diagnostic Findings Chest x-ray: image reviewed (CXR: Right lung infiltrate continued, now with right pleural effusion) Assessment and Plan - Assessment and Plan Acute Hypoxic Respiratory Failure Sepsis RUL pneumonia Right pleural effusion Met Cancer, Bx pending RA/Immune compromised - Imuran/Enbrel Pancytopenia - likely 2/2 sepsis, ? cancer Likely COPD Tobaccoism Hyponatremia - improved Dysphagia - alt diet Plan: Currently on 6L-NC. CXR showed development of right pleural effusion. Platelet count still low, will hold for thoracentesis at this time, poor prognosis. WBC 2.7, currently on Cefepime 1gm, Levaquin 750mg, and Vanco for pna. Duoneb bt's Q4, started on solu-medrol pre primary. Oncology following, family wanting chemo, poor prognosis and likely would not tolerate chemo. - Time Spent With Patient Total time spent is greater than 50% in coordination of care (as documented) at patient's floor/unit and/or counseling patient: less than 15 minutes
[2017-12-16] MEDS: POLYETHYL GLYCOL 3350 17gm PACKET PO SCH (10:36)
[2017-12-16] MEDS: NICOTINE 21 MG PATCH TD SCH (10:48)
[2017-12-16] MEDS: ALLOPURINOL 300 MG TABLET PO SCH (10:58)
[2017-12-16] MEDS: SALINE 0.65% NASAL SPRAY 44 ML BOTTLE EA NOSTRIL SCH ×4 (10:59→21:01)
[2017-12-16] MEDS: ALLOPURINOL 100 MG TABLET PO SCH (10:59)
--- NOTE | 2017-12-16 11:25 | Progress Note ---
- Date 12/16/17 Subjective: F/U: Sepsis, pneumonia More somnolent today. Speech evaluated patient-recommends NPO (to somnolent and weak to attempt swallow). O2 needs increasing - 6L. Creatine with increase to 1.5, urine output decreasing. Objective Vital signs: Temperature 98.0 F 12/16/17 04:00 Pulse Rate 101 H 12/16/17 07:00 Respiratory Rate 18 12/16/17 07:00 Blood Pressure 148/88 H 12/16/17 07:00 Pulse Oximetry 100 12/16/17 07:00 Height/Weight/BMI: Height 1.7 m Weight 77.7 kg Body Mass Index 21.4 - Constitutional Present: moderate distress, well nourished, well developed, somnolent - Routine HEENT Exam Head: Present: normocephalic, atraumatic Eye: Present: EOMI, PERRL ENT: Present: mucous membranes dry - Routine Respiratory Exam Present: decreased breath sounds, rales, respiratory distress, rhonchi - Routine Cardiovascular Exam Present: no murmur, tachycardia - Routine Abdominal Exam Present: soft, non distended, non tender. Absent: normoactive bowel sounds ( decreased) - Routine Extremities Exam Present: edema (+3 B Upper/lower). Absent: cyanosis, clubbing - Routine Musculoskeletal Exam Musculoskeletal: Present: no clubbing or cyanosis - Routine Skin Exam Present: warm. Absent: dry (Moist) - Routine Psychiatric Exam Comments: Somnolent Results - Labs CBC & Chem 7: 12/16/17 02:12 12/16/17 02:12 Microbiology Results: Microbiology 12/10/17 15:57 Peripheral/Iv Start Blood Culture - Final No Growth After 5 Days 12/10/17 16:00 Peripheral/Iv Start Blood Culture - Final No Growth After 5 Days 12/07/17 12:45 Sputum, Expectorated Gram Stain - Final 12/07/17 12:45 Sputum, Expectorated Sputum Culture - Final Pseudomonas aeruginosa Haemophilus influenzae Staphylococcus aureus Normal Resp Pallavi incl. Yeast 12/07/17 18:13 Urine Legionella Urinary Antigen - Final 12/07/17 18:13 Urine Streptococcus pneumoniae Antigen (M - Final Assessment and Plan (1) Septic shock Current visit: Yes Status: Acute (2) Pneumonia Current visit: Yes Status: Acute Assessment and Plan: IMPRESSION Sepsis secondary to Right sided pneumonia Septic shock based on lactate of 4.5 (per CMS) Severe sepsis based on 2016 Surviving Sepsis Guidelines Organ dysfunction = MAP <70, hyperbilirubinemia (2.4), thrombocytopenia ( 16) SOFA on admission = 7, presumed baseline of 0 Pneumonia -right upper lobe and right lower lobe-sputum positive for Pseudomonas and MSSA Acute Hypoxia -currently on 2 L 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 Acute on chronic Hyponatremia (POA) (baseline 131-134) Pancytopenia (POA) including platelet count of 16 and hgb of 8.9 Hyperbilirubinemia, elevated AST and Alk phos, POA Hypercalcemia-worsening Hypoalbuminemia Elevated LDH Elevated CRP and procalcitonin, secondary to acute infection Severe PCM - prealbumin undetectable Thrush. Macrocytic anemia Rheumatoid arthritis Immunocompromised Chronic antritis Tobacco dependency Encephalopathy Sinus tachycardia PLAN Oncology planning chemotherapy this afternoon - high risk for complications, but not likely to survive without treating his cancer. Discussed with about code status. Would recommend DNR as if patient would arrest, feel resuscitative measures would be futile. needs to discuss with family about this. Will continue with antimicrobial therapy and Solu-Medrol. Case discussed with CCU nursing and patient's . Time spent with patient care 25 minutes. DVT Prophylaxis: SCD's Resuscitation Status: Full Code - Time spent with patient Time with patient PN: 25 minutes - Physician Narrative Physician: Wesley Vivar MD Narrative: Date: 12/16/17 Time: 1121 Hospital Course Summary Disclaimer: The visit summary below is not to be considered part of the above Progress Note. Hospital Course: 12/07/17 Admit, inpatient status, to CCU; Patient is critically ill. Dr. Vivar attending. Septic shock based on CMS and Severe Sepsis based on Surviving Sepsis He received full 30 mL/kg bolus in ED. If unable to keep MAP >65, will need to start norepinephrine, which would indicate shock based on 2016 rec. Initial lactate was 4.5; if lactate is still elevated >4 on recheck, this would also indicate shock based on 2016 recommendations. Blood cultures already drawn. Repeat physical exam done. Repeat procalcitonin in am. Sinus tachycardia has improved after fluid boluses, from 138-105. Right sided pneumonia in an immunocompromised patient with significant smoking history. Cefepime was started in the ED -- will continue with this and add vancomycin and levofloxacin d/t immunocompromised state. Check for strep pneumo and legionella. Check sputum culture. Consult Dr. Mckinney; suspect he may require additional respiratory intervention and with smoking hx likely has underlying COPD. Acapella, DuoNeb. Ask RT to provide tobacco cessation information. Nicotine patch ordered. Hold RA medications including Enbrel & Imuran. Pancytopenia Suspect d/t sepsis. If no improvement in next few days consider heme consultation. Platelets only 16 on admission. Will give platelet pack x1. Lovenox is contraindicated. SCD for DVT prevention. Macrocytic anemia - check iron studies, folate, vitamin B12. Hyperbilirubinemia Suspect d/t sepsis. Hepatomegaly and RUQ tenderness. He had liver sonogram in Aug, 2017 which was normal. Check INR. Hyponatremia and hypercalcemia Suspect d/t dehydration. Continue IVF and check in am. Advanced directives None. Requests full resuscitation. 12/08/17 Continue with levofloxacin, cefepime and vancomycin for pulmonary coverage. Neb treatments and acapella to continue. Monitor saturations and work of breathing - on 2L currently. Will have speech check swallow secondary to coughing with swallow. Hemoglobin decreased to 6.7 - transfusion initiated. Iron/B12/Folate tests pending. Platelets increased to 30K. Monitor. No Lovenox due to thrombocytopenia. Sodium with slight improvement to 128, but potassium decreased to 3.7. Will change IVF to NS with 20KCl and 20KPhos and decrease rate to 75cc/hr. BP improved. Recheck CMP, Mg, Phos, Procalcitonin, and CBC secondary to resolving septic shock. Continues to need close nursing care and support, continue CCU monitoring. 12/09/17 Continue with levofloxacin, cefepime and vancomycin for pulmonary coverage. Neb treatments and acapella to continue. Monitor saturations and work of breathing - on 2L currently. Start Mycelex lola for thrush. Speech check recommends pureed diet as very difficult to chew foods - may need to upgrade is not liking pureed consistency. Platelets decreased to 20K. Monitor. Give platelet pack. Hemoglobin improved to 8.2 post transfusion yesterday. Sodium improvement to 134, with potassium and phos normal at 4.2 and 4.3 respectively. Continue IVF to NS with 20KCl and 20KPhos but decrease rate to 50cc/hr. BP improved. HR still in 115 range. Start Bladder retraining - possible discontinue Rivas in near future. Start Miralax daily to help bowel function - hold with loose stool. PT/OT consult to help improve strength. Can transfer to medical floor for continuation of care. 12/10/17 The patient became confused last night and was pulling off his oxygen and pulled out his IV. He is more calm at this time but is still confused. With his severity of illness, will transfer back to intensive care when a bed is open. In the meantime will have his nurse stay close to his room and obtain continuous oximetry. Dr. Galarza was called and consulted regarding his pancytopenia. We'll check PTH regarding hypercalcemia. His hypercalcemia is likely worse than it appears since he also has hypoalbuminemia. Hold IV fluids for now. He is 9 L up on fluids. May require diuresis. Continue Rivas catheter for now. Check ammonia level regarding altered mental status. Continue with levofloxacin, cefepime and vancomycin for pneumonia with immunosuppression. Neb treatments and acapella to continue. Monitor saturations and work of breathing - now requiring 4 L PT/OT consult. 12/11/17 The patient had recurrence of elevated lactate yesterday despite continued treatment with triple antibiotics. Heart rate was back up to 130. The patient was given IV fluids. This morning hemoglobin is dropped to 7.9 and platelets are 18,000. Discussed with Dr. Galarza and we will give 1 platelet pack and 1 unit of blood. There is concern for occult malignancy and we will obtain a CT head, chest, abdomen and pelvis all without contrast today. Regarding his elevated calcium, PTH was low. Await results of CAT scans. Regarding Pseudomonas and MSSA pneumonia, continue Levaquin. Stop cefepime. Continue vancomycin for now until blood cultures have returned. 12/12/17 Continue levofloxacin and vancomycin for antimicrobial coverage. Dr Galarza considering initiation of chemotherapy. Discussed with Dr Galarza about patient significantly declined status-concern currently too ill to start chemo. Worry that a large component of patient's acute problems are due to his cancerous process - uncertain if will make much gains without treating cancer, but uncertain how well he could tolerate chemo. Ultimately decided to wait until final path report returns before initiating chemo. Dr Galarza starting treatments to help protect from tumor lysis. IVF change to D5W with 2amps Bicarb at 75cc/hr to alkalinize urine. 12/13/17 More somnolent and weak this afternoon. Oral drive decreased. Continue levofloxacin and vancomycin for antimicrobial coverage. Increase rate of D5W with 2amps Bicarb to 100 cc/hr. Did give Lasix 20mg IV to help minimize edema and increase urine output. Zometa initiated by Dr Galarza to help hypercalcemia. Cautious oral intake secondary to somnolence. Continue pain control. Restart cefepime due to worsening pneumonia. 12/14/17 Dr Samayoa discussed with family - with small cell cancer, only hope for survival is chemotherapy. With patient's significant decline, uncertain if pt could survive chemo. Will continue with antimicrobial therapy. Add Solu-Medrol to try to decrease pulmonary inflammation. Platelet transfusion given due to declining platelets of 15. IVF changed to D5 1/2NS at 75. Lasix given earlier to help motivate fluid. Will repeat dose this evening. 12/15/17 More somnolent today. Speech evaluated patient-recommends NPO (to somnolent and weak to attempt swallow). O2 needs increasing - 6L. Creatine with increase to 1.5, urine output decreasing. Platelets 27 after 2 platelet pack transfusion yesterday. HGB 7.9. Oncology planning chemotherapy this afternoon - high risk for complications, but not likely to survive without treating his cancer. Discussed with about code status. Would recommend DNR as if patient would arrest, feel resuscitative measures would be futile. needs to discuss with family about this. Will continue with antimicrobial therapy and Solu-Medrol.
[2017-12-16] MEDS: SODIUM BICARBONATE 100 MEQ in D5W 1,000 ML IV SCH (12:04)
[2017-12-16] MEDS: LEVOFLOXACIN PB 750 MG/150 ML BAG IV SCH (12:58)
[2017-12-16] MEDS: SALINE FLUSH 10ml SYRINGE IVF PRN (12:59)
[2017-12-16] MEDS: CLOTRIMAZOLE 10 MG TROCHE MM SCH ×4 (13:01→20:53)
[2017-12-16] MEDS ORDERED: HYDROCORTISONE SOD SUCC 100mg/2ml INJECTION IVP PRN (14:00)
[2017-12-16] MEDS ORDERED: DEXAMETHASONE INJ 10 MG in NS 50 ML IV ONE (14:00)
[2017-12-16] MEDS ORDERED: METHYLPREDNISOLONE SOD SUCC 125mg/2ml INJECTION IVP PRN (14:00)
[2017-12-16] MEDS ORDERED: PALONOSETRON 0.25 MG/5 ML INJECTION IV ONE (14:00)
[2017-12-16] MEDS ORDERED: CARBOPLATIN IV ONE (14:30)
[2017-12-16] MEDS ORDERED: D5W IV ONE (14:30)
[2017-12-16] MEDS ORDERED: FUROSEMIDE 40 MG/4 ML INJECTION IVP ONE (15:13)
[2017-12-16] MEDS ORDERED: ETOPOSIDE IV ONE (15:30)
[2017-12-16] MEDS ORDERED: NS IV ONE (15:30)
--- NOTE | 2017-12-16 15:56 | Progress Note ---
Oncology Subjective The patient remains critically ill. He is very short of breath and congested. He remains bedridden. Exam Vital signs: Temperature 97.8 F 12/16/17 11:00 Pulse Rate 120 H 12/16/17 12:00 Respiratory Rate 20 12/16/17 12:01 Blood Pressure 123/80 12/16/17 11:00 Pulse Oximetry 100 12/16/17 12:01 - Constitutional moderate distress, thin Comments: Remains in critical condition. He is in respiratory distress, moderate. He is on nasal cannula oxygen. - Routine Respiratory Exam Present: dyspnea, rales, respiratory distress, rhonchi, wheezes, crackles Comments: Tachypneic with respiratory between 20-30. - Routine Cardiovascular Exam Present: RRR, no murmur - Routine Abdominal Exam Present: soft - Routine Neurological Exam Present: alert, oriented X3 Oncology Results - Labs CBC & Chem 7: 12/16/17 02:12 12/16/17 02:12 Labs: Short CBC 12/15/17 12/16/17 Range/Units 18:35 02:12 WBC 2.7 L (4.5-11.0) T/MM3 Hgb 7.9 L (13.5-17.5) GM/DL Hct 23.2 L (41-53) % Plt Count 14 L* 27 L* D (130-400) T/MM3 BMP 12/16/17 02:12 Sodium 143 Potassium 4.1 Chloride 104 Carbon Dioxide 32 H BUN 40.0 H Creatinine 1.5 D Glucose 134 H Calcium 11.1 H D Liver Function 12/16/17 Range/Units 02:12 Total Bilirubin 1.70 H (0.20-1.30) MG/DL AST 88 H (17-59) U/L ALT 48 (21-72) U/L Alkaline Phosphatase 453 H (38-126) U/L Albumin 2.2 L (3.5-5.0) g/dL Assessment and Plan Assessment and Plan: Assessment/plan 1. 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 2. Moderate respiratory distress/respiratory failure due to advanced disease and obstructive pneumonia. 3. Hypercalcemia due to malignancy. 4. Pancytopenia; neutropenia and thrombocytopenia due to bone metastasis and most likely bone marrow metastases. The patient and family decided for palliative chemotherapy. Risk and benefit of chemotherapy has been discussed with the patient and his . Today would be the first cycle of chemotherapy carboplatin AUC of 4+ etoposide 100 mg daily for 3 days. G-CSF 480 mcg subcu starting 24 hour after the chemotherapy. Allopurinol monitor patient for tumor lysis. Prognosis guarded. - Time Spent With Patient Total time spent is greater than 50% in coordination of care (as documented) at patient's floor/unit and/or counseling patient: less than 15 minutes
[2017-12-16] MEDS: MORPHINE SULFATE 4mg INJECTION IVP PRN (19:13)
[2017-12-17] MEDS: METHYLPREDNISOLONE SOD SUCC 125mg/2ml INJECTION IVP SCH ×4 (03:16→20:08)
[2017-12-17] MEDS: CEFEPIME 1 GM in NS 50 ML IV SCH ×3 (03:16→19:19)
[2017-12-17] MEDS: SALINE FLUSH 10ml SYRINGE IVF PRN (03:17)
[2017-12-17] MEDS: ALBUTEROL/IPRATROPIUM 2.5mg-0.5mg/3ml NEB AEROSOL SCH ×6 (03:41→23:14)
[2017-12-17] MEDS: POLYETHYL GLYCOL 3350 17gm PACKET PO SCH (08:56)
[2017-12-17] MEDS: ALLOPURINOL 300 MG TABLET PO SCH (08:56)
[2017-12-17] MEDS: ALLOPURINOL 100 MG TABLET PO SCH (08:56)
[2017-12-17] MEDS: CLOTRIMAZOLE 10 MG TROCHE MM SCH ×5 (08:56→22:16)
[2017-12-17] MEDS: SALINE 0.65% NASAL SPRAY 44 ML BOTTLE EA NOSTRIL SCH ×4 (09:09→20:27)
[2017-12-17] MEDS: NICOTINE 21 MG PATCH TD SCH (09:11)
[2017-12-17] MEDS: NICOTINE PATCH REMOVAL TD SCH (09:11)
--- NOTE | 2017-12-17 10:42 | Pulmonology Progress Note ---
Subjective Principal diagnosis: pneumonia Interval history: very weak. speech slurred. no respiratory distress Exam Vital signs: Temperature 97.9 F 12/17/17 04:00 Pulse Rate 116 H 12/17/17 08:00 Respiratory Rate 19 12/17/17 07:17 Blood Pressure 121/79 12/17/17 06:15 Pulse Oximetry 95 12/17/17 07:17 Inpatient Medications: Generic Name Dose Route Start Last Admin Trade Name Freq PRN Reason Stop Dose Admin Hydrocodone Bitart/Acetaminophen 1 tab 12/07/17 11:21 12/12/17 03:02 [place] 5/325 PO 1 tab QID PRN Administration Pain Albuterol/Ipratropium 3 ml 12/07/17 16:00 12/17/17 07:17 Duoneb AEROSOL 3 ml Q4HR RANDALL Administration Allopurinol 300 mg 12/12/17 13:45 12/17/17 08:56 Zyloprim PO Not Given DAILY RANDALL Allopurinol 100 mg 12/15/17 18:30 12/17/17 08:56 Zyloprim PO Not Given DAILY RANDALL Benzonatate 100 mg 12/07/17 12:48 Tessalon Perles PO TID PRN Cough Bisacodyl 10 mg 12/07/17 12:53 Dulcolax RECTALLY DAILY PRN Constipation Clotrimazole 10 mg 12/09/17 12:00 12/17/17 08:56 Mycelex Pj MM Not Given 5XD RANDALL Diphenhydramine HCl 50 mg 12/16/17 14:00 Benadryl IVP PRN PRN For reaction to chemo Fluticasone Propionate 1 spray 12/07/17 11:25 Flonase EA NOSTRIL DAILY PRN PRN orders Hydrocortisone Sodium Succinate 100 mg 12/16/17 14:00 Solu-Cortef IVP PRN PRN For reaction to chemo Levofloxacin/Dextrose 750 mg in 150 mls @ 100 mls/hr 12/07/17 11:21 12/16/17 14:11 Levaquin Premix IV Infused Q24H RANDALL Infusion Cefepime HCl 1 gm/ Sodium 50 mls @ 200 mls/hr 12/15/17 09:00 12/17/17 09:10 Chloride IV 200 mls/hr Q6HR RANDALL Administration Vancomycin HCl 1,000 mg/ 250 mls @ 250 mls/hr 12/15/17 12:00 12/16/17 14:11 Sodium Chloride IV Infused Q24H RANDALL Infusion Dextrose/Sodium Chloride 1,000 mls @ 75 mls/hr 12/15/17 13:30 12/17/17 07:00 D5-1/2ns IV 75 mls/hr .[id number] RANDALL Infusion Dexamethasone 10 mg/ Sodium 52.5 mls @ 150 mls/hr 12/17/17 14:00 Chloride IV 12/17/17 14:20 O ONE Etoposide 100 mg/ Sodium 505 mls @ 125 mls/hr 12/17/17 14:30 Chloride IV 12/17/17 18:32 O ONE Lorazepam 0.25 mg 12/07/17 12:48 12/13/17 04:22 Ativan Inj IVP 0.25 mg Q4H PRN Administration Air hunger/Anxiety Magnesium Hydroxide 30 ml 12/07/17 12:53 Mom PO DAILY PRN Constipation Methylprednisolone Sodium Succinate 125 mg 12/15/17 15:30 12/17/17 09:10 Solu-Medrol IVP 125 mg Q6HR RANDALL Administration Methylprednisolone Sodium Succinate 125 mg 12/16/17 14:00 Solu-Medrol IVP PRN PRN For reaction to chemo Morphine Sulfate 4 mg 12/14/17 11:20 12/16/17 19:13 Morphine Sulfate Inj IVP 4 mg Q2HR PRN Administration Pain Nicotine 21 mg 12/07/17 10:45 12/17/17 09:11 Nicoderm TD 21 mg DAILY RANDALL Administration Nicotine 1 removal 12/08/17 09:00 12/17/17 09:11 Nicotine Patch Removal TD 1 removal DAILY RANDALL Administration Ondansetron HCl 4 mg 12/07/17 11:21 Zofran IVP Q6H PRN Nausea Pharmacy Profile Note 5 ml 12/14/17 11:19 Lidocaine/Maalox/Benadryl Soln PO Q4H PRN Mouth pain Polyethylene Glycol 17 gm 12/09/17 11:00 12/17/17 08:56 Miralax PO Not Given DAILY RANDALL Potassium Chloride 20 meq 12/13/17 12:30 12/17/17 08:55 K-Dur 20 Meq Tablet PO Not Given BIDWM RANDALL Promethazine HCl/Codeine 5 ml 12/07/17 12:49 Phenergan + Codeine PO Q6HR PRN Cough Sodium Chloride 10 - 80 ml 12/07/17 08:43 12/17/17 03:17 Iv Flush IVF 60 ml PRN PRN Administration [place] Sodium Chloride 2 spray 12/08/17 10:15 12/17/17 09:09 [place] Nasal Moisturizing [place] EA NOSTRIL 2 spray QID RANDALL Administration Sodium Chloride 500 ml 12/15/17 16:40 Normal Saline IV PRN PRN Sodium Chloride 10 - 80 ml 12/15/17 16:40 Iv Flush IV PRN PRN [place] Discontinued Medications Generic Name Dose Route Start Last Admin Trade Name Freq PRN Reason Stop Dose Admin Acetaminophen 650 mg 12/11/17 10:30 12/11/17 20:30 Tylenol PO 12/11/17 10:31 325 mg O ONE Administration Albuterol/Ipratropium 3 ml 12/07/17 11:00 12/07/17 16:44 Duoneb AEROSOL Not Given RTQID RANDALL Diphenhydramine HCl 50 mg 12/09/17 10:36 12/09/17 12:51 Benadryl PO 12/09/17 10:37 50 mg ONCE ONE Administration Diphenhydramine HCl 25 mg 12/11/17 10:29 12/11/17 20:30 Benadryl PO 12/11/17 10:30 25 mg ONCE ONE Administration Furosemide 20 mg 12/11/17 10:29 12/11/17 23:59 Lasix IVP 12/11/17 10:30 20 mg O ONE Administration Furosemide 20 mg 12/12/17 14:06 12/12/17 14:47 Lasix IVP 12/12/17 14:07 20 mg ONCE ONE Administration Furosemide 20 mg 12/13/17 09:29 12/13/17 11:51 Lasix IVP 12/13/17 09:30 20 mg ONCE ONE Administration Furosemide 40 mg 12/14/17 11:19 12/14/17 12:14 Lasix IVP 12/14/17 11:20 40 mg O ONE Administration Furosemide 40 mg 12/15/17 09:29 12/15/17 11:44 Lasix IVP 12/15/17 09:30 40 mg O ONE Administration Furosemide 40 mg 12/15/17 17:41 12/15/17 18:32 Lasix IVP 12/15/17 17:42 40 mg O ONE Administration Furosemide 40 mg 12/16/17 15:13 12/16/17 15:18 Lasix IVP 12/16/17 15:14 40 mg O ONE Administration Cefepime HCl 1 gm/ Sodium 100 mls @ 200 mls/hr 12/07/17 08:43 12/07/17 09:33 Chloride IV 12/07/17 09:12 Infused O ONE Infusion Sodium Chloride 1,000 mls @ 1,000 mls/hr 12/07/17 08:43 12/07/17 10:08 Normal Saline IV 12/07/17 09:42 Infused .Q1H ONE Infusion Sodium Chloride 1,000 mls @ 999.9 mls/hr 12/07/17 09:13 12/07/17 11:38 Normal Saline IV 12/07/17 10:12 Infused .Q1H ONE Infusion Cefepime HCl 1 gm/ Sodium 50 mls @ 100 mls/hr 12/07/17 16:00 12/12/17 00:59 Chloride IV Not Given Q6H RANDALL Sodium Chloride 1,000 mls @ 125 mls/hr 12/07/17 11:21 12/08/17 10:31 Normal Saline IV Infused .Q8H RANDALL Infusion Vancomycin HCl 1,250 mg/ 250 mls @ 200 mls/hr 12/08/17 02:00 12/09/17 18:58 Sodium Chloride IV Not Given Q12H RANDALL Vancomycin HCl 1,750 mg/ 500 mls @ 250 mls/hr 12/07/17 14:00 12/07/17 15:00 Sodium Chloride IV 12/07/17 14:01 Infused O ONE Infusion Sodium Chloride 500 mls @ 500 mls/hr 12/08/17 03:40 12/08/17 03:40 Normal Saline IV 12/08/17 04:39 Not Given .Q1H ONE Sodium Chloride 500 mls @ 500 mls/hr 12/08/17 05:30 12/08/17 05:17 Normal Saline IV 12/08/17 06:30 Not Given .Q1H RANDALL Potassium Chloride 20 meq/ 1,014.5455 mls @ 75 mls/hr 12/08/17 09:45 13:00 Potassium Phosphate 20 meq/ IV 0 mls/hr Sodium Chloride .[id number] RANDALL Infusion Potassium Chloride 20 meq/ 1,014.5455 mls @ 50 mls/hr 12/09/17 11:00 12:05 Potassium Phosphate 20 meq/ IV Infused Sodium Chloride .[id number] RANDALL Infusion Vancomycin HCl 1,750 mg/ 500 mls @ 250 mls/hr 12/09/17 14:00 12/12/17 08:00 Sodium Chloride IV 12/12/17 07:30 Not Given Q12H RANDALL Sodium Chloride 1,000 mls @ 500 mls/hr 12/10/17 16:53 12/10/17 19:30 Normal Saline IV 12/10/17 18:52 Infused .Q2H ONE Infusion Sodium Chloride 1,000 mls @ 75 mls/hr 12/11/17 18:00 12/12/17 14:46 Normal Saline IV Infused .[id number] RANDALL Infusion Sodium Chloride 500 mls @ 250 mls/hr 12/11/17 15:45 12/11/17 18:20 Normal Saline IV 12/11/17 17:44 Infused .Q2H RANDALL Infusion Vancomycin HCl 1,750 mg/ 500 mls @ 250 mls/hr 12/13/17 08:00 Sodium Chloride IV 12/13/17 08:00 Q24H RANDALL Sodium Bicarbonate 100 meq/ 1,100 mls @ 75 mls/hr 12/12/17 14:00 12/13/17 12: 30 Dextrose IV Infused .[id number] RANDALL Infusion Vancomycin HCl 1,250 mg/ 250 mls @ 200 mls/hr 12/14/17 08:00 12/14/17 11:00 Sodium Chloride IV Infused Q48H RANDALL Infusion Zoledronic Acid 3 mg in 75 mls @ 150 mls/hr 12/13/17 12:00 12/13/17 14:59 Zometa IV 12/13/17 12:29 Infused O ONE Infusion Sodium Bicarbonate 100 meq/ 1,100 mls @ 100 mls/hr 12/13/17 12:30 12/16/17 12 :04 Dextrose IV Not Given .Q11H RANDALL Cefepime HCl 1 gm/ Sodium 100 mls @ 200 mls/hr 12/14/17 19:30 12/15/17 01:35 Chloride IV Infused Q6H RANDALL Infusion Dexamethasone 10 mg/ Sodium 52.5 mls @ 210 mls/hr 12/16/17 14:00 12/16/17 14: 39 Chloride IV 12/16/17 14:14 Infused O ONE Infusion Carboplatin 377 mg/ Dextrose 287.7 mls @ 250 mls/hr 12/16/17 14:30 12/16/17 16:00 IV 12/16/17 15:39 Infused O ONE Infusion Etoposide 100 mg/ Sodium 505 mls @ 125 mls/hr 12/16/17 15:30 12/16/17 20:00 Chloride IV 12/16/17 19:32 Infused O ONE Infusion Morphine Sulfate 2 mg 12/07/17 12:47 12/14/17 10:38 Morphine Sulfate Inj IVP 2 mg Q2HR PRN Administration Pain Palonosetron 0.25 mg 12/16/17 14:00 12/16/17 14:04 Aloxi IV 12/16/17 14:01 0.25 mg O ONE Administration Pharmacy Consult 1 each 12/11/17 11:34 Pharmacy Consult - Fall Risk XX 12/11/17 11:35 ONE TIME ONE Potassium Chloride 20 meq 12/12/17 13:58 12/12/17 14:14 K-Dur 20 Meq Tablet PO 12/12/17 13:59 20 meq O ONE Administration Sodium Chloride 500 ml 12/07/17 11:24 12/10/17 16:47 Normal Saline IV 500 ml PRN PRN Administration Sodium Chloride 500 ml 12/09/17 10:36 12/11/17 08:14 Normal Saline IV 500 ml PRN PRN Administration Sodium Chloride 500 ml 12/10/17 16:57 Normal Saline IV PRN PRN Sodium Chloride 500 ml 12/11/17 10:29 Normal Saline IV PRN PRN Sodium Chloride 500 ml 12/13/17 09:27 Normal Saline IV PRN PRN Sodium Chloride 500 ml 12/13/17 10:04 Normal Saline IV PRN PRN Sodium Chloride 500 ml 12/15/17 09:29 Normal Saline IV PRN PRN Spironolactone 12.5 mg 12/13/17 09:30 12/13/17 11:51 Aldactone PO 12/13/17 09:31 12.5 mg ONE TIME ONE Administration Vancomycin HCl 1 each 12/07/17 11:09 Pharmacy Consult - Vancomycin MC 12/07/17 11:10 O ONE Vancomycin HCl 1 each 12/07/17 11:21 Pharmacy Consult - Vancomycin 12/07/17 11:22 O ONE - Constitutional no acute distress, cachectic Comments: lethargic - Routine Neck Exam Present: supple - Routine Respiratory Exam Present: decreased breath sounds, rales Comments: rales on right - Routine Cardiovascular Exam Present: RRR, tachycardia - Routine Abdominal Exam Present: soft - Routine Extremities Exam Absent: cyanosis, clubbing, edema - Urinary Catheter Management Urethral Cath placed during this visit: yes Urethral indwelling: Yes Insertion date: 12/07/17 Insertion time: 19:45 Results - Laboratory Findings Laboratory: Laboratory Results - last 48 hr 12/15/17 12/15/17 12/15/17 09:29 10:41 16:41 WBC RBC Hgb Hct MCV MCH MCHC RDW Std Deviation Plt Count MPV Immature Gran % (Auto) Neut % (Auto) Lymph % (Auto) [place] % (Auto) Eos % (Auto) Baso % (Auto) Neut # (Auto) Lymph # (Auto) [place] # (Auto) Eos # (Auto) Baso # (Auto) Abs Immat Gran (auto) Neutrophils % (Manual) Band Neutrophils % Lymphocytes % (Manual) Monocytes % (Manual) Eosinophils % (Manual) Basophils % (Manual) Metamyelocytes % Myelocytes % Neutrophils # (Manual) Band Neutrophils # Lymphocytes # (Manual) Monocytes # (Manual) Eosinophils # (Manual) Basophils # (Manual) Metamyelocytes # Myelocytes # Nucleated RBCs Poikilocytosis Anisocytosis Tear Drop Cells Ovalocytes Helmet Cells RBC Morph Comment Turbidity Sodium Potassium Chloride Carbon Dioxide Anion Gap BUN Creatinine GFR Calculation BUN/Creatinine Ratio Glucose Calculated Osmolality Uric Acid Calcium Phosphorus Magnesium Total Bilirubin Icterus Index AST ALT Alkaline Phosphatase Lactate Dehydrogenase Total Protein Albumin Globulin Albumin/Globulin Ratio Specimen Hemolysis Blood Type O Positive Antibody Screen Negative Crossmatch (AHG) See Detail Blood Product Request 1 unit ppp issued 1 unit pc issued 12/15/17 12/15/17 12/16/17 18:35 19:17 02:12 WBC 2.7 L RBC 2.34 L Hgb 7.9 L Hct 23.2 L MCV 99.1 MCH 33.8 MCHC 34.1 RDW Std Deviation 61.9 H Plt Count 14 L* 27 L* D MPV 10.1 Immature Gran % (Auto) Not performed Neut % (Auto) Not performed Lymph % (Auto) Not performed [place] % (Auto) Not performed Eos % (Auto) Not performed Baso % (Auto) Not performed Neut # (Auto) Not performed Lymph # (Auto) Not performed [place] # (Auto) Not performed Eos # (Auto) Not performed Baso # (Auto) Not performed Abs Immat Gran (auto) Not performed Neutrophils % (Manual) 81.0 H Band Neutrophils % 3.0 Lymphocytes % (Manual) 8.0 L Monocytes % (Manual) 4.0 Eosinophils % (Manual) 1.0 Basophils % (Manual) 1.0 Metamyelocytes % 1.0 H Myelocytes % 1.0 H Neutrophils # (Manual) 2.2 Band Neutrophils # 0.1 Lymphocytes # (Manual) 0.2 L Monocytes # (Manual) 0.1 Eosinophils # (Manual) 0.0 Basophils # (Manual) 0.0 Metamyelocytes # 0.0 Myelocytes # 0.0 Nucleated RBCs 5 Poikilocytosis 2+ Anisocytosis 2+ Tear Drop Cells Ovalocytes 1+ Helmet Cells 1+ RBC Morph Comment Abnormal Turbidity Sodium Potassium Chloride Carbon Dioxide Anion Gap BUN Creatinine GFR Calculation BUN/Creatinine Ratio Glucose Calculated Osmolality Uric Acid Calcium Phosphorus Magnesium Total Bilirubin Icterus Index AST ALT Alkaline Phosphatase Lactate Dehydrogenase Total Protein Albumin Globulin Albumin/Globulin Ratio Specimen Hemolysis Blood Type Antibody Screen Crossmatch (AHG) Blood Product Request 1 unit ppp issued 12/16/17 12/16/17 12/17/17 02:12 02:12 04:01 WBC 3.0 L RBC 2.66 L Hgb 8.9 L D Hct 26.3 L D MCV 98.9 MCH 33.5 MCHC 33.8 RDW Std Deviation 66.1 H Plt Count 20 L* MPV TNP Immature Gran % (Auto) Not performed Neut % (Auto) Not performed Lymph % (Auto) Not performed [place] % (Auto) Not performed Eos % (Auto) Not performed Baso % (Auto) Not performed Neut # (Auto) Not performed Lymph # (Auto) Not performed [place] # (Auto) Not performed Eos # (Auto) Not performed Baso # (Auto) Not performed Abs Immat Gran (auto) Not performed Neutrophils % (Manual) 86.0 H Band Neutrophils % 9.0 H Lymphocytes % (Manual) 2.0 L Monocytes % (Manual) 2.0 Eosinophils % (Manual) Basophils % (Manual) 1.0 Metamyelocytes % Myelocytes % Neutrophils # (Manual) 2.6 Band Neutrophils # 0.3 Lymphocytes # (Manual) 0.1 L Monocytes # (Manual) 0.1 Eosinophils # (Manual) Basophils # (Manual) 0.0 Metamyelocytes # Myelocytes # Nucleated RBCs 5 Poikilocytosis 2+ Anisocytosis 2+ Tear Drop Cells 1+ Ovalocytes 1+ Helmet Cells 1+ RBC Morph Comment Abnormal Turbidity < 20 Sodium 143 Potassium 4.1 Chloride 104 Carbon Dioxide 32 H Anion Gap 7 BUN 40.0 H Creatinine 1.5 D GFR Calculation 48 BUN/Creatinine Ratio 27 H Glucose 134 H Calculated Osmolality 287 H Uric Acid 4.5 Calcium 11.1 H D Phosphorus Magnesium Total Bilirubin 1.70 H Icterus Index < 2 AST 88 H ALT 48 Alkaline Phosphatase 453 H Lactate Dehydrogenase 3291 H Total Protein 4.8 L Albumin 2.2 L Globulin 2.6 Albumin/Globulin Ratio 0.8 L Specimen Hemolysis < 15 Blood Type Antibody Screen Crossmatch (AHG) Blood Product Request 12/17/17 04:01 WBC RBC Hgb Hct MCV MCH MCHC RDW Std Deviation Plt Count MPV Immature Gran % (Auto) Neut % (Auto) Lymph % (Auto) [place] % (Auto) Eos % (Auto) Baso % (Auto) Neut # (Auto) Lymph # (Auto) [place] # (Auto) Eos # (Auto) Baso # (Auto) Abs Immat Gran (auto) Neutrophils % (Manual) Band Neutrophils % Lymphocytes % (Manual) Monocytes % (Manual) Eosinophils % (Manual) Basophils % (Manual) Metamyelocytes % Myelocytes % Neutrophils # (Manual) Band Neutrophils # Lymphocytes # (Manual) Monocytes # (Manual) Eosinophils # (Manual) Basophils # (Manual) Metamyelocytes # Myelocytes # Nucleated RBCs Poikilocytosis Anisocytosis Tear Drop Cells Ovalocytes Helmet Cells RBC Morph Comment Turbidity < 20 Sodium 144 Potassium 3.7 Chloride 106 Carbon Dioxide 29 Anion Gap 9 BUN 51.0 H* Creatinine 1.6 H D GFR Calculation 45 BUN/Creatinine Ratio 32 H Glucose 126 H Calculated Osmolality 293 H Uric Acid 4.6 Calcium 10.0 D Phosphorus 3.5 Magnesium 2.1 Total Bilirubin 1.50 H Icterus Index < 2 AST 73 H ALT 51 Alkaline Phosphatase 468 H Lactate Dehydrogenase 3102 H Total Protein 4.7 L Albumin 2.1 L Globulin 2.6 Albumin/Globulin Ratio 0.8 L Specimen Hemolysis < 15 Blood Type Antibody Screen Crossmatch (AHG) Blood Product Request - Diagnostic Findings Chest x-ray: report reviewed (12/16/17) Assessment and Plan (1) Neuroendocrine carcinoma metastatic to liver Status: Acute Assessment and plan: Neuroendocrine mixed small and large cell malignant process with lesions and lung, liver, bone, elevated LDH, bone marrow involvement and thrombocytopenia and anemia. prognosis is poor Current Visit: Yes (2) Acute hypoxemic respiratory failure Status: Acute Assessment and plan: continue O2, neb treatments I suggest DNR status on this patient, which would not preclude further treatment but would prevent intubation if he further deteriorates, which is expected Current Visit: Yes - Assessment and Plan Acute Hypoxic Respiratory Failure Sepsis RUL pneumonia Right pleural effusion Met Cancer, Bx pending RA/Immune compromised - Imuran/Enbrel Pancytopenia - likely 2/2 sepsis, ? cancer Likely COPD Tobaccoism Hyponatremia - improved Dysphagia - alt diet - Time Spent With Patient Total time spent is greater than 50% in coordination of care (as documented) at patient's floor/unit and/or counseling patient: less than 15 minutes
--- NOTE | 2017-12-17 11:35 | Progress Note ---
<Sharifa Duarte - Last Filed: 12/17/17 12:49> Oncology Subjective Alone in room. Alert, knows his name, knows month is December, knows his address. Incorrectly states [place] is president, otherwise totally appropriate with responses. Denies pain currently. States is hungry. Patient has been nothing by mouth with aspiration risk. Rivas. Incontinent of BM. General: No fever, no night sweats, generalized weakness. Eyes: No redness, no pain, no diplopia ENT: No mouth sores, no trouble swallowing Cardiac: No chest pain no palpitations Pulmonary: No cough or shortness of air currently. Abdomen: No pain, no nausea vomiting, no diarrhea or constipation : Rivas Musculoskeletal: Chronic back pain. Denies currently Neurological: No headaches, no focal weakness Skin: Scrotal swelling and skin breakdown. Psychiatric: No anxiety, no depression Exam Vital signs: Temperature 97.9 F 12/17/17 04:00 Pulse Rate 116 H 12/17/17 08:00 Respiratory Rate 22 12/17/17 11:06 Blood Pressure 121/79 12/17/17 06:15 Pulse Oximetry 96 12/17/17 11:06 - Constitutional no acute distress, well nourished, cooperative - Routine HEENT Exam Head: Present: normocephalic Eye: Present: EOMI ENT: Present: mucous membranes moist - Routine Neck Exam Present: supple. Absent: lymphadenopathy - Routine Respiratory Exam Present: decreased breath sounds - Routine Cardiovascular Exam Present: RRR, tachycardia - Routine Abdominal Exam Present: soft, normoactive bowel sounds - Routine Exam Penile: Present: lesions (scrotal lesions, penile lesion.) Scrotal: Present: swelling - Routine Extremities Exam Present: edema, joint swelling (chronic related to rheumatoid arthritis) - Routine Skin Exam Present: dry, petechiae, warm, ecchymosis (ecchymosis bilateral inner arms/ elbows). Absent: rash - Routine Neurological Exam Present: alert, oriented X3 - Routine Psychiatric Exam Present: normal affect Oncology Results - Labs CBC & Chem 7: 12/17/17 04:01 12/17/17 04:01 Labs: Short CBC 12/17/17 Range/Units 04:01 WBC 3.0 L (4.5-11.0) T/MM3 Hgb 8.9 L D (13.5-17.5) GM/DL Hct 26.3 L D (41-53) % Plt Count 20 L* (130-400) T/MM3 BMP 12/17/17 04:01 Sodium 144 Potassium 3.7 Chloride 106 Carbon Dioxide 29 BUN 51.0 H* Creatinine 1.6 H D Glucose 126 H Calcium 10.0 D Liver Function 12/17/17 Range/Units 04:01 Total Bilirubin 1.50 H (0.20-1.30) MG/DL AST 73 H (17-59) U/L ALT 51 (21-72) U/L Alkaline Phosphatase 468 H (38-126) U/L Albumin 2.1 L (3.5-5.0) g/dL Assessment and Plan Assessment and Plan: Assessment/plan 1. 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 2. Moderate respiratory distress/respiratory failure due to advanced disease and obstructive pneumonia. Pulmonology following. 3. Hypercalcemia due to malignancy. Improving, calcium level 10.0 today, . 4. Pancytopenia; neutropenia and thrombocytopenia due to bone metastasis and most likely bone marrow metastases. Platelets 12/17/17 are 20 K. Increased ecchymosis. Continue supportive care. Will give 1 unit of platelets today. Consider TPN. Wound Care has been consulted for scrotal/penile lesions. Nurse reports. Family have decided patient will be DO NOT RESUSCITATE. - Time Spent With Patient Total time spent is greater than 50% in coordination of care (as documented) at patient's floor/unit and/or counseling patient: 25 - 35 minutes <Davy Galarza - Last Filed: 12/17/17 17:09> Exam Vital signs: Temperature 97.8 F 12/17/17 12:01 Pulse Rate 121 H 12/17/17 16:00 Respiratory Rate 22 12/17/17 15:30 Blood Pressure 104/69 12/17/17 15:30 Pulse Oximetry 93 12/17/17 15:30 Oncology Results - Labs CBC & Chem 7: 12/17/17 04:01 12/17/17 04:01 Labs: Short CBC 12/17/17 Range/Units 04:01 WBC 3.0 L (4.5-11.0) T/MM3 Hgb 8.9 L D (13.5-17.5) GM/DL Hct 26.3 L D (41-53) % Plt Count 20 L* (130-400) T/MM3 BMP 12/17/17 04:01 Sodium 144 Potassium 3.7 Chloride 106 Carbon Dioxide 29 BUN 51.0 H* Creatinine 1.6 H D Glucose 126 H Calcium 10.0 D Liver Function 12/17/17 Range/Units 04:01 Total Bilirubin 1.50 H (0.20-1.30) MG/DL AST 73 H (17-59) U/L ALT 51 (21-72) U/L Alkaline Phosphatase 468 H (38-126) U/L Albumin 2.1 L (3.5-5.0) g/dL Assessment and Plan Assessment and Plan: Patient examined, chart reviewed, I participated in the development of the plan of care of this patient with Yovana Mccannns. Bone marrow showed significant necrosis with involvement with neuroendocrine carcinoma. He is currently getting day 3 of chemotherapy today. He has no evidence of tumor lysis is uric acid is 4.6. Creatinine is slightly higher that may be related to vancomycin. We'll continue to follow. Below her current lab results. Laboratory Tests 12/17/17 12/17/17 12/17/17 04:01 04:01 11:40 WBC 3.0 L Hgb 8.9 L D Plt Count 20 L* Creatinine 1.6 H D Uric Acid 4.6 Total Bilirubin 1.50 H AST 73 H Alkaline Phosphatase 468 H Lactate Dehydrogenase 3102 H Albumin 2.1 L Vancomycin Trough 22.52 H* We'll follow kidney function, uric acid, potassium, phosphorus, calcium, and continue to provide supportive care. - Time Spent With Patient Total time spent is greater than 50% in coordination of care (as documented) at patient's floor/unit and/or counseling patient:
[2017-12-17] MEDS: LEVOFLOXACIN PB 750 MG/150 ML BAG IV SCH (11:43)
[2017-12-17] MEDS ORDERED: FUROSEMIDE 20 MG/2 ML INJECTION IVP ONE ×2 (11:44→16:00)
[2017-12-17] MEDS ORDERED: DEXAMETHASONE INJ 10 MG in NS 50 ML IV ONE (14:00)
--- NOTE | 2017-12-17 14:10 | Pharmacy Consult-Antibiotics ---
Pharmacy Consult-Vancomycin - Laboratory Information WBC 3.0 T/MM3 (4.5-11.0) L 12/17/17 04:01 BUN 51.0 MG/DL (9-20) H* 12/17/17 04:01 Creatinine 1.6 mg/dL (0.8-1.5) H D 12/17/17 04:01 Procalcitonin 4.09 NG/ML H* 12/10/17 15:57 Vancomycin Trough 22.52 ug/mL (15-20) H* 12/17/17 11:40 - Consult Information Vancomycin: day 11 Goal vancomycin trough range= 15 to 20 mcg/ml today's trough level was high at 22.52 mcg/ml Will extend the dosing interval to Vancomycin 1 gm IV Q36H. Patient's 12/17/17 SCr remains high @ 1.6 mg/dL, baseline 12/08/17 SCr 0.6 mg/dL Will continue to closely monitor levels and dosing due to poor renal function. Thank you, Mitali Anderson [facility]
[2017-12-17] MEDS ORDERED: ETOPOSIDE IV ONE (14:30)
[2017-12-17] MEDS ORDERED: NS IV ONE (14:30)
--- NOTE | 2017-12-17 14:32 | Progress Note ---
- Date 12/17/17 Subjective: Mr. Baker was seen with nursing and his at the bedside. He reports that his breathing is about the same and was noncommittal with respect to dyspnea but denied cough. He indicated he had been up in a chair at bedside but required assistance of nursing to transfer. He denied pain or palpitations, reported as having no nausea, vomiting, or constipation. He denied fever or chills and reported that his appetite is poor. Nursing reported no oral intake and that even with thickened liquids the patient has been showing signs of aspiration. Speech therapy reports patient tolerated pured diet with honey thickened liquids well this morning while upright and alert. His reports the patient is often lethargic and confused and that she and other family members have discussed severity of his illness and have elected to change to DO NOT RESUSCITATE status. She reports this has been discussed with the patient who concurs. Objective Vital signs: Temperature 97.8 F 12/17/17 12:01 Pulse Rate 126 H 12/17/17 12:01 Respiratory Rate 24 12/17/17 12:01 Blood Pressure 109/84 12/17/17 12:01 Pulse Oximetry 96 - 12 L 12/17/17 12:01 I/O 2611/1058 Cumulative fluid balance since admission-33,450/11,891 Weight up 19 kg from admission EXAM Qcsjppv-gwuihvrv-vyogumkts male, NAD, soft-spoken HEENT-conjunctiva clear, sclera anicteric, oropharynx clear although membranes are somewhat dry Lungs-respirations slightly labored-dyspneic with speech; decreased breath sounds throughout the anterior right lung field, bronchial sounds on the left Cardiac-regular rhythm, distant heart tones, S1 and S2 Abd-soft, mild generalized tenderness in the upper abdomen, decreased bowel sounds Ext-+2 edema upper extremities-greatest in the hand; pitting edema in the thighs and feet Neuro-moving upper extremities spontaneously, flexes/extensive ankles Psych-flat affect - Rhythm: Sinus Tachycardia Height/Weight/BMI: Height 1.7 m Weight 79.5 kg Body Mass Index 21.4 Results - Labs CBC & Chem 7: 12/17/17 04:01 12/17/17 04:01 Labs: Calcium 10.0, albumin 2.1 Bilirubin 1.5, AST 73, ALT 51, alkaline phosphatase 468 LDH 3102, uric acid 4.6 Microbiology Results: Microbiology 12/10/17 15:57 Peripheral/Iv Start Blood Culture - Final No Growth After 5 Days 12/10/17 16:00 Peripheral/Iv Start Blood Culture - Final No Growth After 5 Days 12/07/17 12:45 Sputum, Expectorated Gram Stain - Final 12/07/17 12:45 Sputum, Expectorated Sputum Culture - Final Pseudomonas aeruginosa Haemophilus influenzae Staphylococcus aureus Normal Resp Pallavi incl. Yeast 12/07/17 18:13 Urine Legionella Urinary Antigen - negative 12/07/17 18:13 Urine Streptococcus pneumoniae Antigen - negative - Imaging and Cardiology Chest x-ray Status: image reviewed by me (chest x-ray from 12/16 reviewed by myself demonstrating dense infiltrate/mass right lung with increasing pleural effusion. ) Assessment and Plan (1) Septic shock Current visit: Yes Status: Acute (2) Pneumonia Current visit: Yes Status: Acute (3) Neuroendocrine carcinoma metastatic to liver Problem details: Lung/liver/bone involvement Current visit: Yes Status: Acute Assessment and Plan: IMPRESSION Sepsis secondary to Right sided pneumonia Septic shock based on lactate of 4.5 (per CMS) Severe sepsis based on 2016 Surviving Sepsis Guidelines Organ dysfunction = MAP <70, hyperbilirubinemia (2.4), thrombocytopenia ( 16) SOFA on admission = 7, presumed baseline of 0 Pneumonia -right upper lobe and right lower lobe-sputum positive for Pseudomonas , Haemophilus, and MSSA Acute Hypoxia -currently on 12 L 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 LIEN Pancytopenia (POA) including platelet count of 16, WBC 3.7, and hgb of 8.9 on admission Hyperbilirubinemia, elevated AST and Alk phos, POA Hypercalcemia-Zometa given 3/4 Hypoalbuminemia Elevated LDH Elevated CRP and procalcitonin, secondary to acute infection Severe PCM - prealbumin undetectable Thrush. Macrocytic anemia Rheumatoid arthritis-Imuran/Enbrel Immunocompromised pt Chronic antritis Tobacco dependency Encephalopathy Sinus tachycardia Dysphasia Acute on chronic Hyponatremia (POA) (baseline 131-134) PLAN Date 11 antibiotics with cefepime, Levaquin, and vancomycin. Remains on high dose methylprednisolone for respiratory symptoms. Chemotherapy initiated yesterday for neuroendocrine malignancy. Platelets 20 can-platelet pack to be given; discussed with Dr. Galarza. Calcium improving, remains elevated for albumin level. Renal function continues to deteriorate-grossly volume overloaded with poor urine output. Rise in creatinine loosely corresponds to time. Diuresis has been attempted, will add albumin infusions and attempt to diurese with albumin to mobilize third spaced fluid. Discussed with speech therapy and nursing-very poor oral intake, Dobbhoff to be placed if possible following platelet infusion today. Dietary consult for tube feedings. Add Protonix for GI prophylaxis. DO NOT RESUSCITATE confirmed with patient's , patient was sleeping at the time so not directly discussed with him. Case discussed with CCU nursing and patient's . DVT Prophylaxis: SCD's GI Prophylaxis: Protonix Resuscitation Status: Do Not Resuscitate - Physician Narrative Narrative: Date: 12/17/17 Time: 1428 Hospital Course Summary Disclaimer: The visit summary below is not to be considered part of the above Progress Note. Hospital Course: 12/07/17 Admit, inpatient status, to CCU; Patient is critically ill. Dr. Vivar attending. Septic shock based on CMS and Severe Sepsis based on Surviving Sepsis He received full 30 mL/kg bolus in ED. If unable to keep MAP >65, will need to start norepinephrine, which would indicate shock based on 2016 rec. Initial lactate was 4.5; if lactate is still elevated >4 on recheck, this would also indicate shock based on 2016 recommendations. Blood cultures already drawn. Repeat physical exam done. Repeat procalcitonin in am. Sinus tachycardia has improved after fluid boluses, from 138-105. Right sided pneumonia in an immunocompromised patient with significant smoking history. Cefepime was started in the ED -- will continue with this and add vancomycin and levofloxacin d/t immunocompromised state. Check for strep pneumo and legionella. Check sputum culture. Consult Dr. Mckinney; suspect he may require additional respiratory intervention and with smoking hx likely has underlying COPD. Ev Pan. Ask RT to provide tobacco cessation information. Nicotine patch ordered. Hold RA medications including Enbrel & Imuran. Pancytopenia Suspect d/t sepsis. If no improvement in next few days consider heme consultation. Platelets only 16 on admission. Will give platelet pack x1. Lovenox is contraindicated. SCD for DVT prevention. Macrocytic anemia - check iron studies, folate, vitamin B12. Hyperbilirubinemia Suspect d/t sepsis. Hepatomegaly and RUQ tenderness. He had liver sonogram in Aug, 2017 which was normal. Check INR. Hyponatremia and hypercalcemia Suspect d/t dehydration. Continue IVF and check in am. Advanced directives None. Requests full resuscitation. 12/08/17 Continue with levofloxacin, cefepime and vancomycin for pulmonary coverage. Neb treatments and acapella to continue. Monitor saturations and work of breathing - on 2L currently. Will have speech check swallow secondary to coughing with swallow. Hemoglobin decreased to 6.7 - transfusion initiated. Iron/B12/Folate tests pending. Platelets increased to 30K. Monitor. No Lovenox due to thrombocytopenia. Sodium with slight improvement to 128, but potassium decreased to 3.7. Will change IVF to NS with 20KCl and 20KPhos and decrease rate to 75cc/hr. BP improved. Recheck CMP, Mg, Phos, Procalcitonin, and CBC secondary to resolving septic shock. Continues to need close nursing care and support, continue CCU monitoring. 12/09/17 Continue with levofloxacin, cefepime and vancomycin for pulmonary coverage. Neb treatments and acapella to continue. Monitor saturations and work of breathing - on 2L currently. Start Mycelex lola for thrush. Speech check recommends pureed diet as very difficult to chew foods - may need to upgrade is not liking pureed consistency. Platelets decreased to 20K. Monitor. Give platelet pack. Hemoglobin improved to 8.2 post transfusion yesterday. Sodium improvement to 134, with potassium and phos normal at 4.2 and 4.3 respectively. Continue IVF to NS with 20KCl and 20KPhos but decrease rate to 50cc/hr. BP improved. HR still in 115 range. Start Bladder retraining - possible discontinue Rivas in near future. Start Miralax daily to help bowel function - hold with loose stool. PT/OT consult to help improve strength. Can transfer to medical floor for continuation of care. 12/10/17 The patient became confused last night and was pulling off his oxygen and pulled out his IV. He is more calm at this time but is still confused. With his severity of illness, will transfer back to intensive care when a bed is open. In the meantime will have his nurse stay close to his room and obtain continuous oximetry. Dr. Galarza was called and consulted regarding his pancytopenia. We'll check PTH regarding hypercalcemia. His hypercalcemia is likely worse than it appears since he also has hypoalbuminemia. Hold IV fluids for now. He is 9 L up on fluids. May require diuresis. Continue Rivas catheter for now. Check ammonia level regarding altered mental status. Continue with levofloxacin, cefepime and vancomycin for pneumonia with immunosuppression. Neb treatments and acapella to continue. Monitor saturations and work of breathing - now requiring 4 L PT/OT consult. 12/11/17 The patient had recurrence of elevated lactate yesterday despite continued treatment with triple antibiotics. Heart rate was back up to 130. The patient was given IV fluids. This morning hemoglobin is dropped to 7.9 and platelets are 18,000. Discussed with Dr. Galarza and we will give 1 platelet pack and 1 unit of blood. There is concern for occult malignancy and we will obtain a CT head, chest, abdomen and pelvis all without contrast today. Regarding his elevated calcium, PTH was low. Await results of CAT scans. Regarding Pseudomonas and MSSA pneumonia, continue Levaquin. Stop cefepime. Continue vancomycin for now until blood cultures have returned. 12/12/17 Continue levofloxacin and vancomycin for antimicrobial coverage. Dr Galarza considering initiation of chemotherapy. Discussed with Dr Galarza about patient significantly declined status-concern currently too ill to start chemo. Worry that a large component of patient's acute problems are due to his cancerous process - uncertain if will make much gains without treating cancer, but uncertain how well he could tolerate chemo. Ultimately decided to wait until final path report returns before initiating chemo. Dr Galarza starting treatments to help protect from tumor lysis. IVF change to D5W with 2amps Bicarb at 75cc/hr to alkalinize urine. 12/13/17 More somnolent and weak this afternoon. Oral drive decreased. Continue levofloxacin and vancomycin for antimicrobial coverage. Increase rate of D5W with 2amps Bicarb to 100 cc/hr. Did give Lasix 20mg IV to help minimize edema and increase urine output. Zometa initiated by Dr Galarza to help hypercalcemia. Cautious oral intake secondary to somnolence. Continue pain control. Restart cefepime due to worsening pneumonia. 12/14/17 Dr Samayoa discussed with family - with small cell cancer, only hope for survival is chemotherapy. With patient's significant decline, uncertain if pt could survive chemo. Will continue with antimicrobial therapy. Add Solu-Medrol to try to decrease pulmonary inflammation. Platelet transfusion given due to declining platelets of 15. IVF changed to D5 1/2NS at 75. Lasix given earlier to help motivate fluid. Will repeat dose this evening. 12/15/17 More somnolent today. Speech evaluated patient-recommends NPO (to somnolent and weak to attempt swallow). O2 needs increasing - 6L. Creatine with increase to 1.5, urine output decreasing. Platelets 27 after 2 platelet pack transfusion yesterday. HGB 7.9. Oncology planning chemotherapy this afternoon - high risk for complications, but not likely to survive without treating his cancer. Discussed with about code status. Would recommend DNR as if patient would arrest, feel resuscitative measures would be futile. needs to discuss with family about this. Will continue with antimicrobial therapy and Solu-Medrol. 12/16/17 Oncology planning chemotherapy this afternoon - high risk for complications, but not likely to survive without treating his cancer. Discussed with about code status. Would recommend DNR as if patient would arrest, feel resuscitative measures would be futile. needs to discuss with family about this. Will continue with antimicrobial therapy and Solu-Medrol. 12/17/17 Family has elected to convert to DO NOT RESUSCITATE status. Chemotherapy initiated with etoposide and carboplatin; platelets being given today for count of 20. Ongoing antibiotic therapy-day 11. Persistent dysphasia with minimal oral intake, Dobbhoff to be placed.
[2017-12-17] MEDS ORDERED: ALBUMIN HUMAN 25gm (25%) 100ml IV ONE (15:07)
[2017-12-17] MEDS: METOCLOPRAMIDE 10mg/10ml ORAL LIQUID DOB SCH ×2 (15:25→22:16)
[2017-12-17] MEDS: PANTOPRAZOLE 40 MG INJECTION IVP SCH (15:35)
--- NOTE | 2017-12-17 16:04 | Wound Care Progress Note ---
Wound Center Progress Note: Pt seen for wound consultation r/t wounds on scrotum and penis. 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 Scrotum: edematous, anterior aspect has denudation, punctate areas with scant serosanguineous drainage. Tip and base of penis: denudation, no drainage. Wound care: apply barrier cream daily and PRN, place gauze under crews tubing to provide cushioning, elevate scrotum.
--- NOTE | 2017-12-17 19:01 | Pharmacy Consult- Renal Dosing ---
Pharamcy Consul-Renal Dosing - Laboratory Information 12/08/17 12/09/17 12/10/17 04:28 04:50 04:00 BUN 17.0 15.0 11.0 Creatinine 0.6 L D 0.6 L 0.5 L 12/10/17 12/11/17 12/11/17 20:09 03:48 12:39 BUN 11.0 12.0 Creatinine 0.6 L 0.6 L 0.6 L 12/12/17 12/13/17 12/14/17 06:48 04:04 03:52 BUN 19.0 D 25.0 H 28.0 H Creatinine 1.0 D 1.3 D 1.3 12/15/17 12/15/17 12/16/17 04:12 07:53 02:12 BUN 36.0 H 40.0 H Creatinine 1.4 1.3 1.5 D 12/17/17 04:01 BUN 51.0 H* Creatinine 1.6 H D - Consult Information Renal dosing: Cefepime and Levaquin Cefepime adjusted to 1gm IV q8h Levaquin adjusted to 750 mg IV Q48H Doses and frequency based on current renal function. Adjustments made per pharmacy renal doing program. Thank you, Mitali Anderson [facility]
[2017-12-17] MEDS: D5-1/2NS 1,000 ML IV SCH ×2 (20:00→20:14)
[2017-12-17] MEDS: NS FLUSH BAG 500ml IV PRN (20:28)
[2017-12-17] MEDS: MORPHINE SULFATE 4mg INJECTION IVP PRN ×2 (20:30→23:03)
[2017-12-18] MEDS: CEFEPIME 1 GM in NS 50 ML IV SCH ×2 (00:51→09:01)
[2017-12-18] MEDS: METOCLOPRAMIDE 10mg/10ml ORAL LIQUID DOB SCH ×4 (01:56→21:07)
[2017-12-18] MEDS: METHYLPREDNISOLONE SOD SUCC 125mg/2ml INJECTION IVP SCH ×3 (02:39→16:10)
[2017-12-18] MEDS: ALBUTEROL/IPRATROPIUM 2.5mg-0.5mg/3ml NEB AEROSOL SCH ×6 (03:55→23:00)
[2017-12-18] MEDS: NICOTINE 21 MG PATCH TD SCH (08:58)
[2017-12-18] MEDS: CLOTRIMAZOLE 10 MG TROCHE MM SCH ×4 (08:59→19:35)
[2017-12-18] MEDS: NICOTINE PATCH REMOVAL TD SCH (09:00)
[2017-12-18] MEDS: SALINE 0.65% NASAL SPRAY 44 ML BOTTLE EA NOSTRIL SCH ×3 (09:01→19:34)
[2017-12-18] MEDS: PANTOPRAZOLE 40 MG INJECTION IVP SCH (09:11)
[2017-12-18] MEDS: ALLOPURINOL 100 MG TABLET PO SCH (09:43)
[2017-12-18] MEDS: POLYETHYL GLYCOL 3350 17gm PACKET PO SCH (09:44)
[2017-12-18] MEDS: D5-1/2NS 1,000 ML IV SCH (10:50)
--- NOTE | 2017-12-18 10:53 | Pulmonology Progress Note ---
Subjective Principal diagnosis: pneumonia Interval history: Pt in bed, appears weak. States no SOB and no cough. Wakes to voice but falls asleep easily. Exam Vital signs: Temperature 97.3 F 12/18/17 08:01 Pulse Rate 120 H 12/18/17 08:01 Respiratory Rate 41 H 12/18/17 08:01 Blood Pressure 137/87 12/18/17 08:01 Pulse Oximetry 90 12/18/17 08:01 Inpatient Medications: Generic Name Dose Route Start Last Admin Trade Name Freq PRN Reason Stop Dose Admin Hydrocodone Bitart/Acetaminophen 1 tab 12/07/17 11:21 12/12/17 03:02 [place] 5/325 PO 1 tab QID PRN Administration Pain Albuterol/Ipratropium 3 ml 12/07/17 16:00 12/18/17 06:46 Duoneb AEROSOL 3 ml Q4HR RANDALL Administration Allopurinol 100 mg 12/15/17 18:30 12/18/17 09:43 Zyloprim PO Not Given DAILY RANDALL Benzonatate 100 mg 12/07/17 12:48 Tessalon Perles PO TID PRN Cough Bisacodyl 10 mg 12/07/17 12:53 Dulcolax RECTALLY DAILY PRN Constipation Clotrimazole 10 mg 12/09/17 12:00 12/18/17 08:59 Mycelex Pj MM 10 mg 5XD RANDALL Administration Diphenhydramine HCl 50 mg 12/16/17 14:00 Benadryl IVP PRN PRN For reaction to chemo Fluticasone Propionate 1 spray 12/07/17 11:25 Flonase EA NOSTRIL DAILY PRN PRN orders Hydrocortisone Sodium Succinate 100 mg 12/16/17 14:00 Solu-Cortef IVP PRN PRN For reaction to chemo Dextrose/Sodium Chloride 1,000 mls @ 75 mls/hr 12/15/17 13:30 12/17/17 23:00 D5-1/2ns IV 75 mls/hr .[id number] RANDALL Infusion Vancomycin HCl 1,000 mg/ 250 mls @ 250 mls/hr 12/18/17 00:01 12/18/17 00:46 Sodium Chloride IV Infused Q36H RANDALL Infusion Cefepime HCl 1 gm/ Sodium 50 mls @ 100 mls/hr 12/17/17 17:00 03/09/18 09:01 Chloride IV 100 mls/hr Q8HR RANDALL Administration Levofloxacin/Dextrose 750 mg in 150 mls @ 100 mls/hr 12/19/17 09:00 Levaquin Premix IV Q48H RANDALL Dexamethasone 10 mg/ Sodium 52.5 mls @ 150 mls/hr 12/18/17 14:00 Chloride IV 12/18/17 14:20 O ONE Etoposide 100 mg/ Sodium 505 mls @ 125 mls/hr 12/18/17 14:30 Chloride IV 12/18/17 18:32 O ONE Lorazepam 0.25 mg 12/07/17 12:48 12/13/17 04:22 Ativan Inj IVP 0.25 mg Q4H PRN Administration Air hunger/Anxiety Magnesium Hydroxide 30 ml 12/07/17 12:53 Mom PO DAILY PRN Constipation Methylprednisolone Sodium Succinate 125 mg 12/15/17 15:30 12/18/17 09:12 Solu-Medrol IVP 125 mg Q6HR RANDALL Administration Methylprednisolone Sodium Succinate 125 mg 12/16/17 14:00 Solu-Medrol IVP PRN PRN For reaction to chemo Metoclopramide HCl 5 mg 12/17/17 14:30 12/18/17 09:43 Reglan Not Given Q6H [facility] Morphine Sulfate 4 mg 12/14/17 11:20 12/17/17 23:03 Morphine Sulfate Inj IVP 4 mg Q2HR PRN Administration Pain Nicotine 21 mg 12/07/17 10:45 12/18/17 08:58 Nicoderm TD 21 mg DAILY RANDALL Administration Nicotine 1 removal 12/08/17 09:00 12/18/17 09:00 Nicotine Patch Removal TD 1 removal DAILY [facility] Administration Ondansetron HCl 4 mg 12/07/17 11:21 Zofran IVP Q6H PRN Nausea Pantoprazole Sodium 40 mg 12/17/17 15:30 12/18/17 09:11 Protonix Iv IVP 40 mg DAILY RANDALL Administration Pharmacy Profile Note 5 ml 12/14/17 11:19 Lidocaine/Maalox/Benadryl Soln PO Q4H PRN Mouth pain Polyethylene Glycol 17 gm 12/09/17 11:00 12/18/17 09:44 Miralax PO Not Given DAILY [facility] Potassium Chloride 20 meq 12/13/17 12:30 12/18/17 09:43 K-Dur 20 Meq Tablet PO Not Given BIDWM RANDALL Sodium Chloride 10 - 80 ml 12/07/17 08:43 12/17/17 03:17 Iv Flush IVF 60 ml PRN PRN Administration [place] Sodium Chloride 2 spray 12/08/17 10:15 12/18/17 09:01 [place] Nasal Moisturizing [place] EA NOSTRIL 2 spray QID RANDALL Administration Sodium Chloride 500 ml 12/15/17 16:40 12/17/17 20:28 Normal Saline IV 500 ml PRN PRN Administration Sodium Chloride 10 - 80 ml 12/15/17 16:40 Iv Flush IV PRN PRN [place] Discontinued Medications Generic Name Dose Route Start Last Admin Trade Name Freq PRN Reason Stop Dose Admin Acetaminophen 650 mg 12/11/17 10:30 12/11/17 20:30 Tylenol PO 12/11/17 10:31 325 mg O ONE Administration Albumin Human 25 g 12/17/17 15:07 12/17/17 16:01 Albumin Human IV 12/17/17 15:08 25 g Q8H ONE Administration Albuterol/Ipratropium 3 ml 12/07/17 11:00 12/07/17 16:44 Duoneb AEROSOL Not Given RTQID [facility] Allopurinol 300 mg 12/12/17 13:45 12/17/17 08:56 Zyloprim PO Not Given DAILY RANDALL Diphenhydramine HCl 50 mg 12/09/17 10:36 12/09/17 12:51 Benadryl PO 12/09/17 10:37 50 mg ONCE ONE Administration Diphenhydramine HCl 25 mg 12/11/17 10:29 12/11/17 20:30 Benadryl PO 12/11/17 10:30 25 mg ONCE ONE Administration Furosemide 20 mg 12/11/17 10:29 12/11/17 23:59 Lasix IVP 12/11/17 10:30 20 mg O ONE Administration Furosemide 20 mg 12/12/17 14:06 12/12/17 14:47 Lasix IVP 12/12/17 14:07 20 mg ONCE ONE Administration Furosemide 20 mg 12/13/17 09:29 12/13/17 11:51 Lasix IVP 12/13/17 09:30 20 mg ONCE ONE Administration Furosemide 40 mg 12/14/17 11:19 12/14/17 12:14 Lasix IVP 12/14/17 11:20 40 mg O ONE Administration Furosemide 40 mg 12/15/17 09:29 12/15/17 11:44 Lasix IVP 12/15/17 09:30 40 mg O ONE Administration Furosemide 40 mg 12/15/17 17:41 12/15/17 18:32 Lasix IVP 12/15/17 17:42 40 mg O ONE Administration Furosemide 40 mg 12/16/17 15:13 12/16/17 15:18 Lasix IVP 12/16/17 15:14 40 mg O ONE Administration Furosemide 20 mg 12/17/17 11:44 12/17/17 12:27 Lasix IVP 12/17/17 11:45 20 mg ONCE ONE Administration Furosemide 20 mg 12/17/17 16:00 12/17/17 15:35 Lasix IVP 12/17/17 16:01 20 mg Q8H ONE Administration Cefepime HCl 1 gm/ Sodium 100 mls @ 200 mls/hr 12/07/17 08:43 12/07/17 09:33 Chloride IV 12/07/17 09:12 Infused O ONE Infusion Sodium Chloride 1,000 mls @ 1,000 mls/hr 12/07/17 08:43 12/07/17 10:08 Normal Saline IV 12/07/17 09:42 Infused .Q1H ONE Infusion Sodium Chloride 1,000 mls @ 999.9 mls/hr 12/07/17 09:13 12/07/17 11:38 Normal Saline IV 12/07/17 10:12 Infused .Q1H ONE Infusion Cefepime HCl 1 gm/ Sodium 50 mls @ 100 mls/hr 12/07/17 16:00 12/12/17 00:59 Chloride IV Not Given Q6H RANDALL Levofloxacin/Dextrose 750 mg in 150 mls @ 100 mls/hr 12/07/17 11:21 12/17/17 13:13 Levaquin Premix IV Infused Q24H RANDALL Infusion Sodium Chloride 1,000 mls @ 125 mls/hr 12/07/17 11:21 12/08/17 10:31 Normal Saline IV Infused .Q8H RANDALL Infusion Vancomycin HCl 1,250 mg/ 250 mls @ 200 mls/hr 12/08/17 02:00 12/09/17 18:58 Sodium Chloride IV Not Given Q12H RANDALL Vancomycin HCl 1,750 mg/ 500 mls @ 250 mls/hr 12/07/17 14:00 12/07/17 15:00 Sodium Chloride IV 12/07/17 14:01 Infused O ONE Infusion Sodium Chloride 500 mls @ 500 mls/hr 12/08/17 03:40 12/08/17 03:40 Normal Saline IV 12/08/17 04:39 Not Given .Q1H ONE Sodium Chloride 500 mls @ 500 mls/hr 12/08/17 05:30 12/08/17 05:17 Normal Saline IV 12/08/17 06:30 Not Given .Q1H RANDALL Potassium Chloride 20 meq/ 1,014.5455 mls @ 75 mls/hr 12/08/17 09:45 13:00 Potassium Phosphate 20 meq/ IV 0 mls/hr Sodium Chloride .[id number] RANDALL Infusion Potassium Chloride 20 meq/ 1,014.5455 mls @ 50 mls/hr 12/09/17 11:00 12:05 Potassium Phosphate 20 meq/ IV Infused Sodium Chloride .[id number] RANDALL Infusion Vancomycin HCl 1,750 mg/ 500 mls @ 250 mls/hr 12/09/17 14:00 12/12/17 08:00 Sodium Chloride IV 12/12/17 07:30 Not Given Q12H RANDALL Sodium Chloride 1,000 mls @ 500 mls/hr 12/10/17 16:53 12/10/17 19:30 Normal Saline IV 12/10/17 18:52 Infused .Q2H ONE Infusion Sodium Chloride 1,000 mls @ 75 mls/hr 12/11/17 18:00 12/12/17 14:46 Normal Saline IV Infused .[id number] RANDALL Infusion Sodium Chloride 500 mls @ 250 mls/hr 12/11/17 15:45 12/11/17 18:20 Normal Saline IV 12/11/17 17:44 Infused .Q2H RANDALL Infusion Vancomycin HCl 1,750 mg/ 500 mls @ 250 mls/hr 12/13/17 08:00 Sodium Chloride IV 12/13/17 08:00 Q24H RANDALL Sodium Bicarbonate 100 meq/ 1,100 mls @ 75 mls/hr 12/12/17 14:00 12/13/17 12: 30 Dextrose IV Infused .[id number] RANDALL Infusion Vancomycin HCl 1,250 mg/ 250 mls @ 200 mls/hr 12/14/17 08:00 12/14/17 11:00 Sodium Chloride IV Infused Q48H RANDALL Infusion Zoledronic Acid 3 mg in 75 mls @ 150 mls/hr 12/13/17 12:00 12/13/17 14:59 Zometa IV 12/13/17 12:29 Infused O ONE Infusion Sodium Bicarbonate 100 meq/ 1,100 mls @ 100 mls/hr 12/13/17 12:30 12/16/17 12 :04 Dextrose IV Not Given .Q11H RANDALL Cefepime HCl 1 gm/ Sodium 100 mls @ 200 mls/hr 12/14/17 19:30 12/15/17 01:35 Chloride IV Infused Q6H RANDALL Infusion Cefepime HCl 1 gm/ Sodium 50 mls @ 200 mls/hr 12/15/17 09:00 12/17/17 09:25 Chloride IV Infused Q6HR RANDALL Infusion Vancomycin HCl 1,000 mg/ 250 mls @ 250 mls/hr 12/15/17 12:00 12/16/17 14:11 Sodium Chloride IV 12/17/17 11:59 Infused Q24H RANDALL Infusion Dexamethasone 10 mg/ Sodium 52.5 mls @ 210 mls/hr 12/16/17 14:00 12/16/17 14: 39 Chloride IV 12/16/17 14:14 Infused O ONE Infusion Carboplatin 377 mg/ Dextrose 287.7 mls @ 250 mls/hr 12/16/17 14:30 12/16/17 16:00 IV 12/16/17 15:39 Infused O ONE Infusion Etoposide 100 mg/ Sodium 505 mls @ 125 mls/hr 12/16/17 15:30 12/16/17 20:00 Chloride IV 12/16/17 19:32 Infused O ONE Infusion Dexamethasone 10 mg/ Sodium 52.5 mls @ 150 mls/hr 12/17/17 14:00 12/17/17 14: 42 Chloride IV 12/17/17 14:20 Infused O ONE Infusion Etoposide 100 mg/ Sodium 505 mls @ 125 mls/hr 12/17/17 14:30 12/17/17 19:00 Chloride IV 12/17/17 18:32 Infused O ONE Infusion Morphine Sulfate 2 mg 12/07/17 12:47 12/14/17 10:38 Morphine Sulfate Inj IVP 2 mg Q2HR PRN Administration Pain Palonosetron 0.25 mg 12/16/17 14:00 12/16/17 14:04 Aloxi IV 12/16/17 14:01 0.25 mg O ONE Administration Pharmacy Consult 1 each 12/11/17 11:34 Pharmacy Consult - Fall Risk XX 12/11/17 11:35 ONE TIME ONE Potassium Chloride 20 meq 12/12/17 13:58 12/12/17 14:14 K-Dur 20 Meq Tablet PO 12/12/17 13:59 20 meq O ONE Administration Promethazine HCl/Codeine 5 ml 12/07/17 12:49 Phenergan + Codeine PO Q6HR PRN Cough Sodium Chloride 500 ml 12/07/17 11:24 12/10/17 16:47 Normal Saline IV 500 ml PRN PRN Administration Sodium Chloride 500 ml 12/09/17 10:36 12/11/17 08:14 Normal Saline IV 500 ml PRN PRN Administration Sodium Chloride 500 ml 12/10/17 16:57 Normal Saline IV PRN PRN Sodium Chloride 500 ml 12/11/17 10:29 Normal Saline IV PRN PRN Sodium Chloride 500 ml 12/13/17 09:27 Normal Saline IV PRN PRN Sodium Chloride 500 ml 12/13/17 10:04 Normal Saline IV PRN PRN Sodium Chloride 500 ml 12/15/17 09:29 Normal Saline IV PRN PRN Spironolactone 12.5 mg 12/13/17 09:30 12/13/17 11:51 Aldactone PO 12/13/17 09:31 12.5 mg ONE TIME ONE Administration Vancomycin HCl 1 each 12/07/17 11:09 Pharmacy Consult - Vancomycin 12/07/17 11:10 O ONE Vancomycin HCl 1 each 12/07/17 11:21 Pharmacy Consult - Vancomycin 12/07/17 11:22 O ONE - Constitutional mild distress, cachectic, cooperative - Routine HEENT Exam Head: Present: normocephalic, atraumatic Eye: Present: EOMI, PERRL ENT: Present: mucous membranes moist - Routine Neck Exam Present: supple, full ROM, trachea midline - Routine Respiratory Exam Present: decreased breath sounds, rhonchi, wheezes. Absent: patient mechanically ventilated - Routine Cardiovascular Exam Present: S1, S2, no murmur, tachycardia - Routine Abdominal Exam Present: soft, normoactive bowel sounds - Routine Extremities Exam Present: edema, non tender, full ROM Comments: very weak - Routine Back/Spine/Pelvis Exam Back/Spine: Present: full ROM - Routine Skin Exam Present: intact, dry - Routine Neurological Exam Present: alert, CN II-XII intact, abnormal gait, moving all extremities - Routine Psychiatric Exam Present: normal affect, cooperative - Urinary Catheter Management Urethral Cath placed during this visit: yes Urethral indwelling: Yes Insertion date: 12/07/17 Insertion time: 19:45 Results - Laboratory Findings Laboratory: Laboratory Results - last 48 hr 12/15/17 12/17/17 12/17/17 10:41 04:01 04:01 WBC 3.0 L RBC 2.66 L Hgb 8.9 L D Hct 26.3 L D MCV 98.9 MCH 33.5 MCHC 33.8 RDW Std Deviation 66.1 H Plt Count 20 L* MPV TNP Immature Gran % (Auto) Not performed Neut % (Auto) Not performed Lymph % (Auto) Not performed Emery % (Auto) Not performed Eos % (Auto) Not performed Baso % (Auto) Not performed Neut # (Auto) Not performed Lymph # (Auto) Not performed [place]y # (Auto) Not performed Eos # (Auto) Not performed Baso # (Auto) Not performed Abs Immat Gran (auto) Not performed Neutrophils % (Manual) 86.0 H Band Neutrophils % 9.0 H Lymphocytes % (Manual) 2.0 L Monocytes % (Manual) 2.0 Basophils % (Manual) 1.0 Neutrophils # (Manual) 2.6 Band Neutrophils # 0.3 Lymphocytes # (Manual) 0.1 L Monocytes # (Manual) 0.1 Basophils # (Manual) 0.0 Nucleated RBCs 5 Poikilocytosis 2+ Anisocytosis 2+ Tear Drop Cells 1+ Ovalocytes 1+ Helmet Cells 1+ RBC Morph Comment Abnormal Turbidity < 20 Sodium 144 Potassium 3.7 Chloride 106 Carbon Dioxide 29 Anion Gap 9 BUN 51.0 H* Creatinine 1.6 H D GFR Calculation 45 BUN/Creatinine Ratio 32 H Glucose 126 H Calculated Osmolality 293 H Uric Acid 4.6 Calcium 10.0 D Phosphorus 3.5 Magnesium 2.1 Total Bilirubin 1.50 H Icterus Index < 2 AST 73 H ALT 51 Alkaline Phosphatase 468 H Lactate Dehydrogenase 3102 H Total Protein 4.7 L Albumin 2.1 L Globulin 2.6 Albumin/Globulin Ratio 0.8 L Specimen Hemolysis < 15 Vancomycin Trough Blood Type O Positive Antibody Screen Negative Crossmatch ([facility]) See Detail Blood Product Request 12/17/17 12/17/17 12/17/17 11:40 13:40 20:42 WBC RBC Hgb Hct MCV MCH MCHC RDW Std Deviation Plt Count 33 L D MPV Immature Gran % (Auto) Neut % (Auto) Lymph % (Auto) Emery % (Auto) Eos % (Auto) Baso % (Auto) Neut # (Auto) Lymph # (Auto) Emery # (Auto) Eos # (Auto) Baso # (Auto) Abs Immat Gran (auto) Neutrophils % (Manual) Band Neutrophils % Lymphocytes % (Manual) Monocytes % (Manual) Basophils % (Manual) Neutrophils # (Manual) Band Neutrophils # Lymphocytes # (Manual) Monocytes # (Manual) Basophils # (Manual) Nucleated RBCs Poikilocytosis Anisocytosis Tear Drop Cells Ovalocytes Helmet Cells RBC Morph Comment Turbidity Sodium Potassium Chloride Carbon Dioxide Anion Gap BUN Creatinine GFR Calculation BUN/Creatinine Ratio Glucose Calculated Osmolality Uric Acid Calcium Phosphorus Magnesium Total Bilirubin Icterus Index AST ALT Alkaline Phosphatase Lactate Dehydrogenase Total Protein Albumin Globulin Albumin/Globulin Ratio Specimen Hemolysis Vancomycin Trough 22.52 H* Blood Type Antibody Screen Crossmatch ([facility]) Blood Product Request 1 unit ppp issued 12/18/17 12/18/17 05:24 05:24 WBC 1.9 L* RBC 2.21 L Hgb 7.3 L D Hct 21.9 L D MCV 99.1 MCH 33.0 MCHC 33.3 RDW Std Deviation 65.3 H Plt Count 23 L* MPV 9.9 Immature Gran % (Auto) Neut % (Auto) Lymph % (Auto) [place] % (Auto) Eos % (Auto) Baso % (Auto) Neut # (Auto) Lymph # (Auto) [place] # (Auto) Eos # (Auto) Baso # (Auto) Abs Immat Gran (auto) Neutrophils % (Manual) 92.0 H Band Neutrophils % 3.0 Lymphocytes % (Manual) 5.0 L Monocytes % (Manual) Basophils % (Manual) Neutrophils # (Manual) 1.7 L Band Neutrophils # 0.1 Lymphocytes # (Manual) 0.1 L Monocytes # (Manual) Basophils # (Manual) Nucleated RBCs 1 Poikilocytosis 2+ Anisocytosis 2+ Tear Drop Cells 1+ Ovalocytes 1+ Helmet Cells 1+ RBC Morph Comment Abnormal Turbidity < 20 Sodium 146 H Potassium 3.7 Chloride 108 H Carbon Dioxide 28 Anion Gap 10 BUN 63.0 H* Creatinine 1.9 H D GFR Calculation 37 BUN/Creatinine Ratio 33 H Glucose 151 H Calculated Osmolality 302 H Uric Acid 5.0 Calcium 8.6 D Phosphorus Magnesium 2.1 Total Bilirubin 1.80 H Icterus Index < 2 AST 183 H D ALT 67 Alkaline Phosphatase 474 H Lactate Dehydrogenase 5077 H Total Protein 4.5 L Albumin 2.2 L Globulin 2.3 L Albumin/Globulin Ratio 1.0 L Specimen Hemolysis < 15 Vancomycin Trough Blood Type Antibody Screen Crossmatch ([facility]) Blood Product Request Assessment and Plan - Assessment and Plan Acute Hypoxic Respiratory Failure Sepsis RUL pneumonia Right pleural effusion Met Cancer, Bx pending RA/Immune compromised - Imuran/Enbrel at home Pancytopenia - likely 2/2 sepsis, ? cancer Likely COPD Tobaccoism Hyponatremia - improved Dysphagia - alt diet Plan: Pt currently on 15L NRB since yesterday afternoon, sats 93%, wean to keep sats 90-95%. Júnior check an ABG, may benefit from bipap and will add prn due to weakness. Cont on Bt's with A/A q4hr, solum 125mg q6hr, on abx with levaquin, vanco and cefepime for pna. 2nd day of chemo, check CXR today due to increase O2 needs. - Time Spent With Patient Total time spent is greater than 50% in coordination of care (as documented) at patient's floor/unit and/or counseling patient: less than 15 minutes
--- NOTE | 2017-12-18 11:16 | XRay Report ---
Indication: infiltrates PROCEDURE: XR chest 1V: Encounter: Initial Comparison: December 16, 2017 Findings: Left PICC line remains in place. Right sided areas of airspace consolidation and mass are stable allowing for differences in exposure technique. Small to moderate right pleural effusion is stable. No pneumothorax. Small left effusion with left lower lobe airspace opacities which are unchanged. Slight worsening in pulmonary vascular congestion. Mediastinal contours are stable. Impression: Stable right-sided airspace disease and masses. Mild worsening in pulmonary edema. .
[2017-12-18] MEDS ORDERED: ALBUMIN HUMAN 25gm (25%) 100ml IV SCH (12:00)
--- NOTE | 2017-12-18 12:26 | Pharmacy Consult- Renal Dosing ---
Pharamcy Consul-Renal Dosing - Laboratory Information 12/08/17 12/09/17 12/10/17 04:28 04:50 04:00 BUN 17.0 15.0 11.0 Creatinine 0.6 L D 0.6 L 0.5 L 12/10/17 12/11/17 12/11/17 20:09 03:48 12:39 BUN 11.0 12.0 Creatinine 0.6 L 0.6 L 0.6 L 12/12/17 12/13/17 12/14/17 06:48 04:04 03:52 BUN 19.0 D 25.0 H 28.0 H Creatinine 1.0 D 1.3 D 1.3 12/15/17 12/15/17 12/16/17 04:12 07:53 02:12 BUN 36.0 H 40.0 H Creatinine 1.4 1.3 1.5 D 12/17/17 12/18/17 04:01 05:24 BUN 51.0 H* 63.0 H* Creatinine 1.6 H D 1.9 H D - Consult Information renal dosing: Cefepime SCr continues to rise, today's SCr= 1.9 mg/dL up from baseline 12/08/17 SCr= 0.6 mg/dL The Cefepime dosing interval was extended to Cefepime 1 gm IV Q12H. Adjustment's made per pharmacy renal adjustment protocol. Pharmacy will monitor and adjust dosing as needed. Thank you, Mitali Anderson [facility]
[2017-12-18] MEDS: ALBUMIN HUMAN 25gm (25%) 100ml IV SCH ×2 (12:56→21:01)
[2017-12-18] MEDS: NS FLUSH BAG 500ml IV PRN (13:59)
[2017-12-18] MEDS ORDERED: DEXAMETHASONE INJ 10 MG in NS 50 ML IV ONE (14:00)
--- NOTE | 2017-12-18 14:01 | Progress Note ---
<Sharifa Duarte - Last Filed: 12/18/17 15:13> Oncology Subjective Alone in room. Awakens easily. Denies pain. Only c/o is "dry mouth" General: No fever, no night sweats. Generalized weakness. Eyes: No redness, no pain, no diplopia ENT: No mouth sores, c/o dry mouth Cardiac: No chest pain no palpitations Pulmonary: SOA, cont hi flow O2. Abdomen: No pain, no nausea vomiting, no diarrhea or constipation :crews Musculoskeletal: chronic RA Neurological: No headaches, no focal weakness Skin: scotal wound Psychiatric: No anxiety, no depression Exam Vital signs: Temperature 97.3 F 12/18/17 08:01 Pulse Rate 120 H 12/18/17 08:01 Respiratory Rate 24 12/18/17 12:23 Blood Pressure 137/87 12/18/17 08:01 Pulse Oximetry 94 12/18/17 12:23 - Constitutional mild distress, well nourished, well developed, cooperative - Routine HEENT Exam Head: Present: normocephalic Eye: Present: EOMI ENT: Present: mucous membranes dry (no oral lesions noted) - Routine Neck Exam Present: supple. Absent: lymphadenopathy - Routine Respiratory Exam Present: decreased breath sounds, rhonchi - Routine Cardiovascular Exam Present: RRR, tachycardia - Routine Abdominal Exam Present: soft, normoactive bowel sounds. Absent: tenderness - Routine Exam Scrotal: Present: swelling - Routine Extremities Exam Present: edema (some upper extremity edema/ rt > left, 2-3+ edema christopher. LE) - Routine Skin Exam Present: dry, pallor, petechiae, ecchymosis (christopher. arms) - Routine Neurological Exam Present: alert, hearing grossly intact, normal speech - Routine Psychiatric Exam Present: normal affect, cooperative Oncology Results - Labs CBC & Chem 7: 12/18/17 05:24 12/18/17 05:24 Labs: Short CBC 12/17/17 12/18/17 Range/Units 20:42 05:24 WBC 1.9 L* (4.5-11.0) T/MM3 Hgb 7.3 L D (13.5-17.5) GM/DL Hct 21.9 L D (41-53) % Plt Count 33 L D 23 L* (130-400) T/MM3 BMP 12/18/17 05:24 Sodium 146 H Potassium 3.7 Chloride 108 H Carbon Dioxide 28 BUN 63.0 H* Creatinine 1.9 H D Glucose 151 H Calcium 8.6 D Liver Function 12/18/17 Range/Units 05:24 Total Bilirubin 1.80 H (0.20-1.30) MG/DL AST 183 H D (17-59) U/L ALT 67 (21-72) U/L Alkaline Phosphatase 474 H (38-126) U/L Albumin 2.2 L (3.5-5.0) g/dL - Impressions Date of Exam: 12/18/17 Ordering Provider: Sara Espinosa APRN Type of Exam(s): XR chest 1V Reason for Exam(s): infiltrates Indication: infiltrates PROCEDURE: XR chest 1V: Encounter: Initial Comparison: December 16, 2017 Findings: Left PICC line remains in place. Right sided areas of airspace consolidation and mass are stable allowing for differences in exposure technique. Small to moderate right pleural effusion is stable. No pneumothorax. Small left effusion with left lower lobe airspace opacities which are unchanged. Slight worsening in pulmonary vascular congestion. Mediastinal contours are stable. Impression: Stable right-sided airspace disease and masses. Mild worsening in pulmonary edema. . Assessment and Plan Assessment and Plan: Assessment/plan 1. 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 2. Moderate respiratory distress/respiratory failure due to advanced disease and obstructive pneumonia. Pulmonology following. 3. Hypercalcemia due to malignancy. Improving, calcium level 10.0 on 12/17/17, 8.6 on 12/18/17. 4. Pancytopenia; neutropenia and thrombocytopenia due to bone metastasis and most likely bone marrow metastases. Platelets on 12/17/17 are 20 K, platelets 23K on 12/18/17. HGB on 12/18/17 is 7.3, WBC 1.9/ANC 1.7. Plan Continue chemotherapy, supportive care, antibiotics. To receive Etoposide day 3 today. Plan C-GSF for neutropenia. Follow counts daily; now with fluid overload , worsening renal/liver function. Prognosis guarded. - Time Spent With Patient Total time spent is greater than 50% in coordination of care (as documented) at patient's floor/unit and/or counseling patient: less than 15 minutes <Davy Galarza - Last Filed: 12/18/17 17:08> Oncology Subjective Currently on BiPap. Opens eyes. Exam Vital signs: Temperature 97.3 F 12/18/17 08:01 Pulse Rate 120 H 12/18/17 08:01 Respiratory Rate 19 12/18/17 15:25 Blood Pressure 137/87 12/18/17 08:01 Pulse Oximetry 94 12/18/17 16:51 - Routine Neurological Exam Absent: normal speech Bipap mask. Difficult to understand. Oncology Results - Labs CBC & Chem 7: 12/18/17 05:24 12/18/17 05:24 Labs: Short CBC 12/17/17 12/18/17 Range/Units 20:42 05:24 WBC 1.9 L* (4.5-11.0) T/MM3 Hgb 7.3 L D (13.5-17.5) GM/DL Hct 21.9 L D (41-53) % Plt Count 33 L D 23 L* (130-400) T/MM3 BMP 12/18/17 05:24 Sodium 146 H Potassium 3.7 Chloride 108 H Carbon Dioxide 28 BUN 63.0 H* Creatinine 1.9 H D Glucose 151 H Calcium 8.6 D Liver Function 12/18/17 Range/Units 05:24 Total Bilirubin 1.80 H (0.20-1.30) MG/DL AST 183 H D (17-59) U/L ALT 67 (21-72) U/L Alkaline Phosphatase 474 H (38-126) U/L Albumin 2.2 L (3.5-5.0) g/dL Assessment and Plan Assessment and Plan: Worsening respiratory status and increasing creatinine are not good prognostic signs. Will start G CSF tomorrow evening. Platelets stable. Selected Entries 12/18/17 15:25 12/18/17 16:51 Respiratory Rate 19 Pulse Oximetry 96 94 Laboratory Tests 12/17/17 12/18/17 12/18/17 04:01 05:24 05:24 WBC 1.9 L* Hgb 7.3 L D Plt Count 23 L* Neutrophils % (Manual) 92.0 H Neutrophils # (Manual) 1.7 L BUN 51.0 H* 63.0 H* Creatinine 1.6 H D 1.9 H D Glucose 151 H Calculated Osmolality 302 H Uric Acid 5.0 Calcium 8.6 D Magnesium 2.1 Total Bilirubin 1.80 H AST 183 H D ALT 67 Alkaline Phosphatase 474 H Lactate Dehydrogenase 5077 H LDH can be from tumor lysis. Prognosis guarded. Will continue supportive care. I participated in the development of the plan of care of the patient with Yovana Duarte. - Time Spent With Patient Total time spent is greater than 50% in coordination of care (as documented) at patient's floor/unit and/or counseling patient:
[2017-12-18] MEDS ORDERED: NS IV ONE (14:30)
[2017-12-18] MEDS ORDERED: ETOPOSIDE IV ONE (14:30)
--- NOTE | 2017-12-18 16:29 | Progress Note ---
- Date 12/18/17 Subjective: Mr. Baker has required nonrebreather mask overnight with 15-16 L supplemental oxygen. Verbal responses are mumbled and cannot always be made out of was clear that he complains of pain from arthritis and some dyspnea. Nursing reports minimal oral intake and inability to place Dobbhoff yesterday due to desaturation and tube catching during attempts to pass. Patient denies nausea or vomiting, denies chest pain. No fever reported. Objective Vital signs: Temperature 97.3 F 12/18/17 08:01 Pulse Rate 120 H 12/18/17 08:01 Respiratory Rate 19 12/18/17 15:25 Blood Pressure 137/87 12/18/17 08:01 Pulse Oximetry 96 12/18/17 15:25 EXAM General-appears moderately uncomfortable, drowsy HEENT-conjunctiva clear, sclera anicteric; nonrebreather mask on Lungs-moderately dyspneic at rest, decreased airflow, upper anterior chamorro relatively clear but diminished sounds right anterior and at the left base Cardiac-regular rhythm, tachycardic, S1-S2 Abd-distended, soft, mild generalized tenderness in the upper abdomen, diminished bowel sounds Ext-+2 edema upper extremities, pitting edema in the thighs him a +3 edema in the feet Neuro-sensation intact 4 extremities, 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 Psych-dull, cooperates with testing, oriented to [facility] and [facility] - Rhythm: Sinus Tachycardia Height/Weight/BMI: Height 1.7 m Weight 80.1 kg Body Mass Index 21.4 Results - Labs CBC & Chem 7: 12/18/17 05:24 12/18/17 05:24 Labs: 92% neutrophils, 3% bands Bilirubin 1.8, AST 183-increasing, alkaline phosphatase 474, LDH 5077-increasing Calcium 8.6, albumin 2.2 Microbiology Results: Microbiology 12/10/17 15:57 Peripheral/Iv Start Blood Culture - Final No Growth After 5 Days 12/10/17 16:00 Peripheral/Iv Start Blood Culture - Final No Growth After 5 Days 12/07/17 12:45 Sputum, Expectorated Gram Stain - Final 12/07/17 12:45 Sputum, Expectorated Sputum Culture - Final Pseudomonas aeruginosa Haemophilus influenzae Staphylococcus aureus Normal Resp Pallavi incl. Yeast 12/07/17 18:13 Urine Legionella Urinary Antigen - Final 12/07/17 18:13 Urine Streptococcus pneumoniae Antigen (M - Final - Imaging and Cardiology Chest x-ray Status: image reviewed by me (persistent right mid/lower mass; increased vascular markings/pleural effusions) Assessment and Plan (1) Septic shock Current visit: Yes Status: Acute (2) Pneumonia Current visit: Yes Status: Acute (3) Neuroendocrine carcinoma metastatic to liver Problem details: Lung/liver/bone involvement Current visit: Yes Status: Acute Assessment and Plan: IMPRESSION Sepsis secondary to Right sided pneumonia Septic shock based on lactate of 4.5 (per CMS) Severe sepsis based on 2016 Surviving Sepsis Guidelines Organ dysfunction = MAP <70, hyperbilirubinemia (2.4), thrombocytopenia ( 16) SOFA on admission = 7, presumed baseline of 0 Pneumonia -right upper lobe and right lower lobe-sputum positive for Pseudomonas , Haemophilus, and MSSA Acute Hypoxia respiratory failure-currently on 16 L; BiPAP initiated 12/18 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 LIEN Pancytopenia (POA) including platelet count of 16, WBC 3.7, and hgb of 8.9 on admission Hyperbilirubinemia, elevated AST and Alk phos, POA Hypercalcemia-Zometa given / Hypoalbuminemia Elevated LDH Elevated CRP and procalcitonin, secondary to acute infection Severe PCM - prealbumin undetectable Thrush. Macrocytic anemia Rheumatoid arthritis-Imuran/Enbrel Immunocompromised pt Chronic antritis Tobacco dependency Encephalopathy Sinus tachycardia Dysphasia Acute on chronic Hyponatremia (POA) (baseline 131-134) PLAN Date 12 antibiotics with cefepime, Levaquin, and vancomycin. Remains on high dose methylprednisolone for respiratory symptoms. Chemotherapy initiated 12/16 for neuroendocrine malignancy. White count down, platelets transiently improved after platelet pack yesterday- suspect marrow failure due to malignancy. Calcium stabilizing after treatment earlier in the week. Renal function continues to deteriorate-grossly volume overloaded with poor urine output. Diuresis has been attempted, will add albumin infusions and attempt to diurese with albumin to mobilize third spaced fluid. Convert from Lasix to Bumex with albumin in attempt to diurese today. Respiratory status precludes placement of Dobbhoff at this time; volume status precludes TPN until diuresis can be effectively maintained. Case discussed with CCU nursing and patient's . Patient is critically ill, prognosis guarded at best and survival uncertain. Discussed with pulmonary collection systems consultant. DVT Prophylaxis: SCD's GI Prophylaxis: Protonix Resuscitation Status: Do Not Resuscitate - Physician Narrative Narrative: Date: 12/18/17 Time: 1626 Hospital Course Summary Disclaimer: The visit summary below is not to be considered part of the above Progress Note. Hospital Course: 12/07/17 Admit, inpatient status, to CCU; Patient is critically ill. Dr. Vivar attending. Septic shock based on CMS and Severe Sepsis based on Surviving Sepsis He received full 30 mL/kg bolus in ED. If unable to keep MAP >65, will need to start norepinephrine, which would indicate shock based on 2016 rec. Initial lactate was 4.5; if lactate is still elevated >4 on recheck, this would also indicate shock based on 2016 recommendations. Blood cultures already drawn. Repeat physical exam done. Repeat procalcitonin in am. Sinus tachycardia has improved after fluid boluses, from 138-105. Right sided pneumonia in an immunocompromised patient with significant smoking history. Cefepime was started in the ED -- will continue with this and add vancomycin and levofloxacin d/t immunocompromised state. Check for strep pneumo and legionella. Check sputum culture. Consult Dr. Mckinney; suspect he may require additional respiratory intervention and with smoking hx likely has underlying COPD. [place] j[place]. Ask RT to provide tobacco cessation information. Nicotine patch ordered. Hold RA medications including Enbrel & Imuran. Pancytopenia Suspect d/t sepsis. If no improvement in next few days consider heme consultation. Platelets only 16 on admission. Will give platelet pack x1. Lovenox is contraindicated. SCD for DVT prevention. Macrocytic anemia - check iron studies, folate, vitamin B12. Hyperbilirubinemia Suspect d/t sepsis. Hepatomegaly and RUQ tenderness. He had liver sonogram in Aug, 2017 which was normal. Check INR. Hyponatremia and hypercalcemia Suspect d/t dehydration. Continue IVF and check in am. Advanced directives None. Requests full resuscitation. 12/08/17 Continue with levofloxacin, cefepime and vancomycin for pulmonary coverage. Neb treatments and acapella to continue. Monitor saturations and work of breathing - on 2L currently. Will have speech check swallow secondary to coughing with swallow. Hemoglobin decreased to 6.7 - transfusion initiated. Iron/B12/Folate tests pending. Platelets increased to 30K. Monitor. No Lovenox due to thrombocytopenia. Sodium with slight improvement to 128, but potassium decreased to 3.7. Will change IVF to NS with 20KCl and 20KPhos and decrease rate to 75cc/hr. BP improved. Recheck CMP, Mg, Phos, Procalcitonin, and CBC secondary to resolving septic shock. Continues to need close nursing care and support, continue CCU monitoring. 12/09/17 Continue with levofloxacin, cefepime and vancomycin for pulmonary coverage. Neb treatments and acapella to continue. Monitor saturations and work of breathing - on 2L currently. Start Mycelex lola for thrush. Speech check recommends pureed diet as very difficult to chew foods - may need to upgrade is not liking pureed consistency. Platelets decreased to 20K. Monitor. Give platelet pack. Hemoglobin improved to 8.2 post transfusion yesterday. Sodium improvement to 134, with potassium and phos normal at 4.2 and 4.3 respectively. Continue IVF to NS with 20KCl and 20KPhos but decrease rate to 50cc/hr. BP improved. HR still in 115 range. Start Bladder retraining - possible discontinue Rivas in near future. Start Miralax daily to help bowel function - hold with loose stool. PT/OT consult to help improve strength. Can transfer to medical floor for continuation of care. 12/10/17 The patient became confused last night and was pulling off his oxygen and pulled out his IV. He is more calm at this time but is still confused. With his severity of illness, will transfer back to intensive care when a bed is open. In the meantime will have his nurse stay close to his room and obtain continuous oximetry. Dr. Galarza was called and consulted regarding his pancytopenia. We'll check PTH regarding hypercalcemia. His hypercalcemia is likely worse than it appears since he also has hypoalbuminemia. Hold IV fluids for now. He is 9 L up on fluids. May require diuresis. Continue Rivas catheter for now. Check ammonia level regarding altered mental status. Continue with levofloxacin, cefepime and vancomycin for pneumonia with immunosuppression. Neb treatments and acapella to continue. Monitor saturations and work of breathing - now requiring 4 L PT/OT consult. 12/11/17 The patient had recurrence of elevated lactate yesterday despite continued treatment with triple antibiotics. Heart rate was back up to 130. The patient was given IV fluids. This morning hemoglobin is dropped to 7.9 and platelets are 18,000. Discussed with Dr. Galarza and we will give 1 platelet pack and 1 unit of blood. There is concern for occult malignancy and we will obtain a CT head, chest, abdomen and pelvis all without contrast today. Regarding his elevated calcium, PTH was low. Await results of CAT scans. Regarding Pseudomonas and MSSA pneumonia, continue Levaquin. Stop cefepime. Continue vancomycin for now until blood cultures have returned. 12/12/17 Continue levofloxacin and vancomycin for antimicrobial coverage. Dr Galarza considering initiation of chemotherapy. Discussed with Dr Galarza about patient significantly declined status-concern currently too ill to start chemo. Worry that a large component of patient's acute problems are due to his cancerous process - uncertain if will make much gains without treating cancer, but uncertain how well he could tolerate chemo. Ultimately decided to wait until final path report returns before initiating chemo. Dr Galarza starting treatments to help protect from tumor lysis. IVF change to D5W with 2amps Bicarb at 75cc/hr to alkalinize urine. 12/13/17 More somnolent and weak this afternoon. Oral drive decreased. Continue levofloxacin and vancomycin for antimicrobial coverage. Increase rate of D5W with 2amps Bicarb to 100 cc/hr. Did give Lasix 20mg IV to help minimize edema and increase urine output. Zometa initiated by Dr Gaalrza to help hypercalcemia. Cautious oral intake secondary to somnolence. Continue pain control. Restart cefepime due to worsening pneumonia. 12/14/17 Dr Samayoa discussed with family - with small cell cancer, only hope for survival is chemotherapy. With patient's significant decline, uncertain if pt could survive chemo. Will continue with antimicrobial therapy. Add Solu-Medrol to try to decrease pulmonary inflammation. Platelet transfusion given due to declining platelets of 15. IVF changed to D5 1/2NS at 75. Lasix given earlier to help motivate fluid. Will repeat dose this evening. 12/15/17 More somnolent today. Speech evaluated patient-recommends NPO (to somnolent and weak to attempt swallow). O2 needs increasing - 6L. Creatine with increase to 1.5, urine output decreasing. Platelets 27 after 2 platelet pack transfusion yesterday. HGB 7.9. Oncology planning chemotherapy this afternoon - high risk for complications, but not likely to survive without treating his cancer. Discussed with about code status. Would recommend DNR as if patient would arrest, feel resuscitative measures would be futile. needs to discuss with family about this. Will continue with antimicrobial therapy and Solu-Medrol. 12/16/17 Oncology planning chemotherapy this afternoon - high risk for complications, but not likely to survive without treating his cancer. Discussed with about code status. Would recommend DNR as if patient would arrest, feel resuscitative measures would be futile. needs to discuss with family about this. Will continue with antimicrobial therapy and Solu-Medrol. 12/17/17 Family has elected to convert to DO NOT RESUSCITATE status. Chemotherapy initiated with etoposide and carboplatin; platelets being given today for count of 20. Ongoing antibiotic therapy-day 11. Persistent dysphasia with minimal oral intake, Dobbhoff to be placed. 12/18/17 Persistent pancytopenia; day 3 chemotherapy, day 12 triple antibiotics for sepsis. Oxygen demand increasing, creatinine climbing-converted to Bumex with albumin to attempt to diurese. Chest x-ray with increasing pleural effusions and pulmonary edema. Unable to place Dobbhoff and volume status precludes TPN. Prognosis guarded at best.
[2017-12-19] MEDS: CEFEPIME 1 GM in NS 50 ML IV SCH ×3 (00:01→21:11)
[2017-12-19] MEDS: METHYLPREDNISOLONE SOD SUCC 125mg/2ml INJECTION IVP SCH ×5 (00:07→21:18)
[2017-12-19] MEDS: CLOTRIMAZOLE 10 MG TROCHE MM SCH ×6 (00:08→21:16)
[2017-12-19] MEDS: SALINE 0.65% NASAL SPRAY 44 ML BOTTLE EA NOSTRIL SCH ×5 (00:11→21:26)
[2017-12-19] MEDS: D5-1/2NS 1,000 ML IV SCH ×2 (00:57→10:59)
[2017-12-19] MEDS: ALBUTEROL/IPRATROPIUM 2.5mg-0.5mg/3ml NEB AEROSOL SCH ×6 (03:22→23:40)
[2017-12-19] MEDS: METOCLOPRAMIDE 10mg/10ml ORAL LIQUID DOB SCH ×2 (03:39→10:58)
[2017-12-19] MEDS: ALBUMIN HUMAN 25gm (25%) 100ml IV SCH ×3 (03:57→20:17)
--- NOTE | 2017-12-19 06:40 | Progress Note ---
Oncology Subjective On BiPAP. He will open his eyes to command. Will squeeze fingers to command. ROS not obtainable secondary to respiratory distress Discussed events overnight with nurse. Exam Vital signs: Temperature 97.6 F 12/19/17 04:00 Pulse Rate 112 H 12/19/17 05:00 Respiratory Rate 21 12/19/17 05:00 Blood Pressure 125/74 12/19/17 05:00 Pulse Oximetry 92 12/19/17 05:00 - Constitutional no acute distress, other (on BiPAP. Will open eyes.) - Routine HEENT Exam Head: Present: normocephalic Eye: Present: PERRL. Absent: scleral injection Throat: other (will open mouth. Membranes appear dry.) - Routine Neck Exam Present: supple. Absent: lymphadenopathy - Routine Respiratory Exam Present: decreased breath sounds, rales, rhonchi (bilaterally). Absent: accessory muscle use - Routine Cardiovascular Exam Present: RRR, no murmur - Routine Abdominal Exam Present: soft, normoactive bowel sounds, non distended, non tender - Routine Extremities Exam Present: edema (3+ edema). Absent: cyanosis, clubbing - Routine Skin Exam Present: dry, warm - Routine Neurological Exam Present: alert. Absent: motor deficit (we'll move hands. Squeezes fingers. No focal deficit noted) Oncology Results - Labs CBC & Chem 7: 12/19/17 04:40 12/19/17 04:40 Labs: Short CBC 12/19/17 Range/Units 04:40 WBC 2.0 L (4.5-11.0) T/MM3 Hgb 7.2 L (13.5-17.5) GM/DL Hct 21.6 L (41-53) % Plt Count 16 L* (130-400) T/MM3 BMP 12/19/17 04:40 Sodium 148 H Potassium 3.4 L Chloride 108 H Carbon Dioxide 25 BUN 74.0 H* Creatinine 1.9 H Glucose 176 H Calcium 7.9 L D Liver Function 12/19/17 Range/Units 04:40 Total Bilirubin 1.40 H (0.20-1.30) MG/DL AST 85 H D (17-59) U/L ALT 47 (21-72) U/L Alkaline Phosphatase 366 H (38-126) U/L Albumin 2.7 L (3.5-5.0) g/dL Laboratory Tests 12/18/17 12/19/17 12/19/17 05:24 04:40 04:40 WBC 2.0 L Hgb 7.2 L Plt Count 16 L* BUN 63.0 H* 74.0 H* Creatinine 1.9 H D 1.9 H Calcium 7.9 L D Phosphorus 5.6 H Total Bilirubin 1.80 H 1.40 H AST 183 H D 85 H D Alkaline Phosphatase 474 H 366 H Lactate Dehydrogenase 5077 H 4612 H Assessment and Plan Assessment and Plan: 1. 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 Began chemotherapy with carboplatin and etoposide on 12/16/17. Completed on 12/18/17. Will start G-CSF tonight. 2. Moderate respiratory distress/respiratory failure due to advanced disease and obstructive pneumonia. Pulmonology following. On BiPAP. In no distress 3. Hypercalcemia due to malignancy. Improving, calcium level 10.0 on 12/17/17, 8.6 on 12/18/17, 7.9 on 12/19/17. 4. Pancytopenia; neutropenia and thrombocytopenia due to bone metastasis and most likely bone marrow metastases. Platelets on 12/17/17 are 20 K, platelets 23K on 12/18/17. HGB on 12/18/17 is 7.3, WBC 1.9/ANC 1.7, 12/19/17: WBC 2.0, ANC 1.9, PLT 16. 5. Anemia Hgb 7.2 on 12/19/17. May benefit from transfusion. 6. LDH is starting to decrease 7. Renal insufficiency Creatinine stable at 1.9 on 12/19/17. 8. Respiratory insufficency. Requires Bipap Plan Continue chemotherapy, supportive care, antibiotics. Received Etoposide day 3 on 12/18/17. Plan C-GSF for neutropenia starting at 7 PM tonight. . Follow counts daily; now with fluid overload, renal/liver function is stable to slightly improved today. Prognosis guarded. Discussed with Dr. Cortés - Time Spent With Patient Total time spent is greater than 50% in coordination of care (as documented) at patient's floor/unit and/or counseling patient: 25 - 35 minutes
[2017-12-19] MEDS ORDERED: LEVOFLOXACIN PB 750 MG/150 ML BAG IV SCH (09:00)
[2017-12-19] MEDS: NICOTINE 21 MG PATCH TD SCH (09:51)
[2017-12-19] MEDS: PANTOPRAZOLE 40 MG INJECTION IVP SCH (09:52)
[2017-12-19] MEDS: NICOTINE PATCH REMOVAL TD SCH (09:52)
[2017-12-19] MEDS: SALINE FLUSH 10ml SYRINGE IVF PRN ×3 (09:52→16:12)
[2017-12-19] MEDS: MORPHINE SULFATE 4mg INJECTION IVP PRN ×3 (09:54→23:59)
[2017-12-19] MEDS: POLYETHYL GLYCOL 3350 17gm PACKET PO SCH (10:59)
[2017-12-19] MEDS: ALLOPURINOL 100 MG TABLET PO SCH (10:59)
--- NOTE | 2017-12-19 11:56 | Progress Note ---
- Date 12/19/17 Subjective: Pt on bipap through the night; converted to high-flow mask to speak with me and maintained O2 sat with 16 L. Patient describes feeling short of breath, generalized pain (nursing localizes to abdomen), dry mouth, and nausea. Nursing reports no bowel movement in approximately 3 days and that patient is unable to take oral medications. No fevers overnight; urine output approximately matching fluid in with Bumex/albumin administration. No bleeding described by nursing and no respiratory secretions reported. Objective Vital signs: Temperature 97.7 F 12/19/17 09:30 Pulse Rate 127 H 12/19/17 08:00 Respiratory Rate 24 12/19/17 06:42 Blood Pressure 125/74 12/19/17 05:00 Pulse Oximetry 97 -BiPAP, FiO2 50% 12/19/17 06:46 I/O 2573/2224 Reported weight down 2.3 kg from yesterday EXAM General-fatigued, moderately dyspneic, weak voice-mumbled speech HEENT-conjunctiva clear, sclera anicteric, conjugate gaze, oral membranes pain with very small ulcerations on the distal tongue Lungs-moderately labored respirations, decreased breath sounds throughout- especially right mid and lower anterior lung field, bronchial sounds anterior left lung field, no wheezing Cardiac-regular rhythm, low-grade tachycardia, [id number] heart tones Abd-distended, soft, diminished bowel sounds, mild generalized tenderness without guarding Ext-+3 edema upper extremities and feet, +2 pitting edema in the thighs, minimal edema at the ankles bilaterally MS-marked deforming arthritic changes in the hands, external rotation at the ankles bilaterally Skin-superficial excoriations on the scrotum with hyperpigmented lesion laterally in the right hemiscrotum may represent bruising versus early necrotic tissue Neuro-generalized weakness especially in the lower extremities he does wiggle his toes/flex his ankles to command; spontaneous movement of upper extremities Psych-withdrawn, flat affect - Rhythm: Sinus Tachycardia Height/Weight/BMI: Height 1.7 m Weight 77.7 kg Body Mass Index 21.4 Results - Labs CBC & Chem 7: 12/19/17 04:40 12/19/17 04:40 Labs: S96, B2, M2 Phosphorus 5.6, bilirubin 1.4, AST 85, ALT 47, alkaline phosphatase 366, LDH 4612 Calcium 7.9, albumin 2.7 Uric acid 5.8 Vancomycin 17-controlled Microbiology Results: Microbiology 12/10/17 15:57 Peripheral/Iv Start Blood Culture - Final No Growth After 5 Days 12/10/17 16:00 Peripheral/Iv Start Blood Culture - Final No Growth After 5 Days 12/07/17 12:45 Sputum, Expectorated Gram Stain - Final 12/07/17 12:45 Sputum, Expectorated Sputum Culture - Final Pseudomonas aeruginosa Haemophilus influenzae Staphylococcus aureus Normal Resp Pallavi incl. Yeast 12/07/17 18:13 Urine Legionella Urinary Antigen - Final 12/07/17 18:13 Urine Streptococcus pneumoniae Antigen (M - Final Assessment and Plan (1) Septic shock Current visit: Yes Status: Acute (2) Pneumonia Current visit: Yes Status: Acute (3) Neuroendocrine carcinoma metastatic to liver Problem details: Lung/liver/bone involvement Current visit: Yes Status: Acute Assessment and Plan: IMPRESSION Sepsis secondary to Right sided pneumonia Septic shock based on lactate of 4.5 (per CMS) Severe sepsis based on 2016 Surviving Sepsis Guidelines Organ dysfunction = MAP <70, hyperbilirubinemia (2.4), thrombocytopenia ( 16) SOFA on admission = 7, presumed baseline of 0 Pneumonia -right upper lobe and right lower lobe-sputum positive for Pseudomonas , Haemophilus, and MSSA Acute Hypoxia respiratory failure-currently on 16 L; BiPAP initiated 12/18 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 LIEN Pancytopenia (POA) including platelet count of 16, WBC 3.7, and hgb of 8.9 on admission Hyperbilirubinemia, elevated AST and Alk phos, POA Hypercalcemia-Zometa given / Hypoalbuminemia Elevated LDH Elevated CRP and procalcitonin, secondary to acute infection Severe PCM - prealbumin undetectable Thrush. Macrocytic anemia Rheumatoid arthritis-Imuran/Enbrel Immunocompromised pt Chronic antritis Tobacco dependency Encephalopathy Sinus tachycardia Dysphasia Acute on chronic Hyponatremia (POA) (baseline 131-134)-resolved Volume overload/anasarca Hypokalemia-12/19/17 PLAN Date 13 antibiotics with cefepime, Levaquin, and vancomycin. Remains on high dose methylprednisolone for respiratory distress. Dependent on high flow oxygen/BiPAP. Chemotherapy 12/16-12/18 for neuroendocrine malignancy. G-CSF initiated 12/19. Remains pancytopenic, 1 unit packed red blood cells today. Will require platelets if any evidence of blood loss. Anticipate platelet transfusion tomorrow. Calcium stable following treatment. Urine output improving with albumin/Bumex; BUN climbing-continue regimen today but may not be able to continue if uremia progresses. IV fluids discontinued; supplement potassium IV due to inability to take oral medications. Repeat chest x-ray in a.m. Respiratory status precludes placement of Dobbhoff at this time; volume status precludes TPN until diuresis can be effectively maintained. Case discussed with CCU nursing and Dr. Galarza. Patient is critically ill, prognosis guarded at best and survival uncertain. - Physician Narrative Narrative: Date: 12/19/17 Time: 1152 Hospital Course Summary Disclaimer: The visit summary below is not to be considered part of the above Progress Note. Hospital Course: 12/07/17 Admit, inpatient status, to CCU; Patient is critically ill. Dr. Vivar attending. Septic shock based on CMS and Severe Sepsis based on Surviving Sepsis He received full 30 mL/kg bolus in ED. If unable to keep MAP >65, will need to start norepinephrine, which would indicate shock based on 2016 rec. Initial lactate was 4.5; if lactate is still elevated >4 on recheck, this would also indicate shock based on 2016 recommendations. Blood cultures already drawn. Repeat physical exam done. Repeat procalcitonin in am. Sinus tachycardia has improved after fluid boluses, from 138-105. Right sided pneumonia in an immunocompromised patient with significant smoking history. Cefepime was started in the ED -- will continue with this and add vancomycin and levofloxacin d/t immunocompromised state. Check for strep pneumo and legionella. Check sputum culture. Consult Dr. Mckinney; suspect he may require additional respiratory intervention and with smoking hx likely has underlying COPD. AcaEv joya. Ask RT to provide tobacco cessation information. Nicotine patch ordered. Hold RA medications including Enbrel & Imuran. Pancytopenia Suspect d/t sepsis. If no improvement in next few days consider heme consultation. Platelets only 16 on admission. Will give platelet pack x1. Lovenox is contraindicated. SCD for DVT prevention. Macrocytic anemia - check iron studies, folate, vitamin B12. Hyperbilirubinemia Suspect d/t sepsis. Hepatomegaly and RUQ tenderness. He had liver sonogram in Aug, 2017 which was normal. Check INR. Hyponatremia and hypercalcemia Suspect d/t dehydration. Continue IVF and check in am. Advanced directives None. Requests full resuscitation. 12/08/17 Continue with levofloxacin, cefepime and vancomycin for pulmonary coverage. Neb treatments and acapella to continue. Monitor saturations and work of breathing - on 2L currently. Will have speech check swallow secondary to coughing with swallow. Hemoglobin decreased to 6.7 - transfusion initiated. Iron/B12/Folate tests pending. Platelets increased to 30K. Monitor. No Lovenox due to thrombocytopenia. Sodium with slight improvement to 128, but potassium decreased to 3.7. Will change IVF to NS with 20KCl and 20KPhos and decrease rate to 75cc/hr. BP improved. Recheck CMP, Mg, Phos, Procalcitonin, and CBC secondary to resolving septic shock. Continues to need close nursing care and support, continue CCU monitoring. 12/09/17 Continue with levofloxacin, cefepime and vancomycin for pulmonary coverage. Neb treatments and acapella to continue. Monitor saturations and work of breathing - on 2L currently. Start Mycelex lola for thrush. Speech check recommends pureed diet as very difficult to chew foods - may need to upgrade is not liking pureed consistency. Platelets decreased to 20K. Monitor. Give platelet pack. Hemoglobin improved to 8.2 post transfusion yesterday. Sodium improvement to 134, with potassium and phos normal at 4.2 and 4.3 respectively. Continue IVF to NS with 20KCl and 20KPhos but decrease rate to 50cc/hr. BP improved. HR still in 115 range. Start Bladder retraining - possible discontinue Rivas in near future. Start Miralax daily to help bowel function - hold with loose stool. PT/OT consult to help improve strength. Can transfer to medical floor for continuation of care. 12/10/17 The patient became confused last night and was pulling off his oxygen and pulled out his IV. He is more calm at this time but is still confused. With his severity of illness, will transfer back to intensive care when a bed is open. In the meantime will have his nurse stay close to his room and obtain continuous oximetry. Dr. Galarza was called and consulted regarding his pancytopenia. We'll check PTH regarding hypercalcemia. His hypercalcemia is likely worse than it appears since he also has hypoalbuminemia. Hold IV fluids for now. He is 9 L up on fluids. May require diuresis. Continue Rivas catheter for now. Check ammonia level regarding altered mental status. Continue with levofloxacin, cefepime and vancomycin for pneumonia with immunosuppression. Neb treatments and acapella to continue. Monitor saturations and work of breathing - now requiring 4 L PT/OT consult. 12/11/17 The patient had recurrence of elevated lactate yesterday despite continued treatment with triple antibiotics. Heart rate was back up to 130. The patient was given IV fluids. This morning hemoglobin is dropped to 7.9 and platelets are 18,000. Discussed with Dr. Galarza and we will give 1 platelet pack and 1 unit of blood. There is concern for occult malignancy and we will obtain a CT head, chest, abdomen and pelvis all without contrast today. Regarding his elevated calcium, PTH was low. Await results of CAT scans. Regarding Pseudomonas and MSSA pneumonia, continue Levaquin. Stop cefepime. Continue vancomycin for now until blood cultures have returned. 12/12/17 Continue levofloxacin and vancomycin for antimicrobial coverage. Dr Galarza considering initiation of chemotherapy. Discussed with Dr Galarza about patient significantly declined status-concern currently too ill to start chemo. Worry that a large component of patient's acute problems are due to his cancerous process - uncertain if will make much gains without treating cancer, but uncertain how well he could tolerate chemo. Ultimately decided to wait until final path report returns before initiating chemo. Dr Galarza starting treatments to help protect from tumor lysis. IVF change to D5W with 2amps Bicarb at 75cc/hr to alkalinize urine. 12/13/17 More somnolent and weak this afternoon. Oral drive decreased. Continue levofloxacin and vancomycin for antimicrobial coverage. Increase rate of D5W with 2amps Bicarb to 100 cc/hr. Did give Lasix 20mg IV to help minimize edema and increase urine output. Zometa initiated by Dr Galarza to help hypercalcemia. Cautious oral intake secondary to somnolence. Continue pain control. Restart cefepime due to worsening pneumonia. 12/14/17 Dr Samayoa discussed with family - with small cell cancer, only hope for survival is chemotherapy. With patient's significant decline, uncertain if pt could survive chemo. Will continue with antimicrobial therapy. Add Solu-Medrol to try to decrease pulmonary inflammation. Platelet transfusion given due to declining platelets of 15. IVF changed to D5 1/2NS at 75. Lasix given earlier to help motivate fluid. Will repeat dose this evening. 12/15/17 More somnolent today. Speech evaluated patient-recommends NPO (to somnolent and weak to attempt swallow). O2 needs increasing - 6L. Creatine with increase to 1.5, urine output decreasing. Platelets 27 after 2 platelet pack transfusion yesterday. HGB 7.9. Oncology planning chemotherapy this afternoon - high risk for complications, but not likely to survive without treating his cancer. Discussed with about code status. Would recommend DNR as if patient would arrest, feel resuscitative measures would be futile. needs to discuss with family about this. Will continue with antimicrobial therapy and Solu-Medrol. 12/16/17 Oncology planning chemotherapy this afternoon - high risk for complications, but not likely to survive without treating his cancer. Discussed with about code status. Would recommend DNR as if patient would arrest, feel resuscitative measures would be futile. needs to discuss with family about this. Will continue with antimicrobial therapy and Solu-Medrol. 12/17/17 Family has elected to convert to DO NOT RESUSCITATE status. Chemotherapy initiated with etoposide and carboplatin; platelets being given today for count of 20. Ongoing antibiotic therapy-day 11. Persistent dysphasia with minimal oral intake, Dobbhoff to be placed. 12/18/17 Persistent pancytopenia; day 3 chemotherapy, day 12 triple antibiotics for sepsis. Oxygen demand increasing, creatinine climbing-converted to Bumex with albumin to attempt to diurese. Chest x-ray with increasing pleural effusions and pulmonary edema. Unable to place Dobbhoff and volume status precludes TPN. Prognosis guarded at best. 12/19/17 Date 13 antibiotics with cefepime, Levaquin, and vancomycin. Remains on high dose methylprednisolone for respiratory distress. Dependent on high flow oxygen/BiPAP. Chemotherapy 12/16-12/18 for neuroendocrine malignancy. G-CSF initiated 12/19. Remains pancytopenic, 1 unit packed red blood cells today. Will require platelets if any evidence of blood loss. Anticipate platelet transfusion tomorrow. Calcium stable following treatment. Urine output improving with albumin/Bumex; BUN climbing-continue regimen today but may not be able to continue if uremia progresses. IV fluids discontinued; supplement potassium IV due to inability to take oral medications. Repeat chest x-ray in a.m.
[2017-12-19] MEDS ORDERED: POTASSIUM CHLORIDE IV SCH (13:00)
[2017-12-19] MEDS ORDERED: D5W IV SCH (13:00)
--- NOTE | 2017-12-19 13:29 | Pharmacy Consult-Antibiotics ---
Pharmacy Consult-Vancomycin - Laboratory Information WBC 2.0 T/MM3 (4.5-11.0) L 12/19/17 04:40 BUN 74.0 MG/DL (9-20) H* 12/19/17 04:40 Creatinine 1.9 mg/dL (0.8-1.5) H 12/19/17 04:40 Procalcitonin 4.09 NG/ML H* 12/10/17 15:57 Vancomycin Trough 17.00 ug/mL (15-20) 12/19/17 10:55 - Consult Information VANCOMYCIN CONSULT: Day 13 Vancomycin Trough = 17 mcg/ml. Trough is within the desired range of 15-20. Today's SCr = 1.9 mg/dl. BUN = 74 Will continue with Vancomycin 1250 mg IV q 36 hrs. Will continue to monitor and make adjustments accordingly. Thank you. Elenita Hernandez, PharmD
[2017-12-19] MEDS: ONDANSETRON 4 MG/2 ML INJECTION IVP PRN (13:45)
[2017-12-19] MEDS: NS FLUSH BAG 500ml IV PRN (16:12)
[2017-12-19] MEDS ORDERED: FALL RISK - PHARMACY CONSULT XX ONE (17:12)
[2017-12-19] MEDS: TBO-FILGRASTIM 480mcg/0.8ml INJECTION SQ SCH (20:15)
[2017-12-20] MEDS: METHYLPREDNISOLONE SOD SUCC 125mg/2ml INJECTION IVP SCH ×4 (03:52→21:25)
[2017-12-20] MEDS: ALBUMIN HUMAN 25gm (25%) 100ml IV SCH ×3 (04:02→20:12)
[2017-12-20] MEDS: ALBUTEROL/IPRATROPIUM 2.5mg-0.5mg/3ml NEB AEROSOL SCH ×6 (05:07→23:54)
[2017-12-20] MEDS: NS FLUSH BAG 500ml IV PRN (09:58)
[2017-12-20] MEDS: SALINE FLUSH 10ml SYRINGE IVF PRN ×3 (09:59→15:18)
[2017-12-20] MEDS: CEFEPIME 1 GM in NS 50 ML IV SCH ×2 (10:01→21:25)
[2017-12-20] MEDS: NICOTINE 21 MG PATCH TD SCH (10:01)
[2017-12-20] MEDS: PANTOPRAZOLE 40 MG INJECTION IVP SCH (10:02)
[2017-12-20] MEDS: NICOTINE PATCH REMOVAL TD SCH (10:02)
--- NOTE | 2017-12-20 10:14 | XRay Report ---
Indication: respiratory failure/neuroendocrine cancer PROCEDURE: XR chest 1V: Encounter: Initial Comparison: December 18, 2017 Findings: Left PICC line remains in place. Improving aeration of the right lower lobe with continued dense consolidation and mass in the right hilar region and right upper lobe. Small bilateral effusions. Increasing interstitial prominence in the left lung. Heart size is grossly stable. Impression: Improving aeration of the right lung with slight worsening in moderate pulmonary edema. .
[2017-12-20] MEDS: SALINE 0.65% NASAL SPRAY 44 ML BOTTLE EA NOSTRIL SCH ×4 (10:18→21:27)
[2017-12-20] MEDS: POLYETHYL GLYCOL 3350 17gm PACKET PO SCH (10:18)
[2017-12-20] MEDS: CLOTRIMAZOLE 10 MG TROCHE MM SCH (10:19)
[2017-12-20] MEDS: ONDANSETRON 4 MG/2 ML INJECTION IVP PRN (10:20)
[2017-12-20] MEDS ORDERED: OXYMETAZOLINE 0.05% NASAL SPRAY 15ml EA NOSTRIL PRN (11:00)
[2017-12-20] MEDS: MORPHINE SULFATE 4mg INJECTION IVP PRN ×4 (11:07→21:59)
--- NOTE | 2017-12-20 12:18 | Progress Note ---
- Date 12/20/17 Subjective: Mr. Baker had minor epistaxis with oozing from the right nostril overnight per nursing report. He's been slightly more alert, continues to have generalized pain with abdominal pain localized more to the epigastrium and left upper quadrant yesterday evening and today. Nursing noted asymmetry of pupils this morning but felt the patient was more responsive and at that his speech was clearer than yesterday. Requires pain medication frequently however. He was able to take small amounts of thickened liquids with assistance. Patient describes persistent dyspnea. He is lethargic and responds to questions and commands inconsistently. There's been no recurrent fever per nursing report and urine output has been good with albumin/Bumex. Objective Vital signs: Temperature 97.6 F 12/20/17 08:00 Pulse Rate 108 H 12/20/17 08:42 Respiratory Rate 26 H 12/20/17 10:58 Blood Pressure 106/77 12/20/17 06:00 Pulse Oximetry 97 12/20/17 10:58 I/O 1715/2065 EXAM General-uncomfortable appearing male, mumbled speech HEENT-left pupil 4 mm, right pupil 2 mm-both react to light, EOMI conjugate gaze , sclera anicteric; facial structure symmetric Lungs-mildly labored respirations, improved airflow upper lung chamorro but diminished breath sounds left mid/lower lung, improved breath sounds in the left mid lung field, slightly coarse left lower lung field anteriorly [id number] tachycardia, regular rhythm Abd-marked tenderness on palpation of the left upper quadrant with guarding, epigastrium tender; generalized distention, diminished bowel sounds Ext-+2 edema upper extremities with pitting edema of the thighs and feet Neuro-moves arms spontaneously when stimulated-grossly symmetrically; sensation intact 4 extremities, did not spontaneously or to command and move feet today Psych-sedated having just received morphine prior to my evaluation - Rhythm: Sinus Tachycardia Height/Weight/BMI: Height 1.7 m Weight 79 kg Body Mass Index 21.4 Results - Labs CBC & Chem 7: 12/20/17 04:02 12/20/17 04:02 Labs: S85, B2, L10, M3 Osmolality 319, uric acid 7.2, calcium 6.8, albumin 2.9 AST 66, ALT 36, bilirubin 1.4, alkaline phosphatase 292, LDH 4661 Phosphorus 7.1, magnesium 2.1 Microbiology Results: Microbiology 12/10/17 15:57 Peripheral/Iv Start Blood Culture - Final No Growth After 5 Days 12/10/17 16:00 Peripheral/Iv Start Blood Culture - Final No Growth After 5 Days 12/07/17 12:45 Sputum, Expectorated Gram Stain - Final 12/07/17 12:45 Sputum, Expectorated Sputum Culture - Final Pseudomonas aeruginosa Haemophilus influenzae Staphylococcus aureus Normal Resp Pallavi incl. Yeast 12/07/17 18:13 Urine Legionella Urinary Antigen - Final 12/07/17 18:13 Urine Streptococcus pneumoniae Antigen (M - Final - Imaging and Cardiology Chest x-ray Status: image reviewed by me (persistent mass/infiltrate right lower lobe- slightly improved; increased vascular markings) Assessment and Plan (1) Septic shock Current visit: Yes Status: Acute (2) Pneumonia Current visit: Yes Status: Acute (3) Neuroendocrine carcinoma metastatic to liver Problem details: Lung/liver/bone involvement Current visit: Yes Status: Acute Assessment and Plan: IMPRESSION Sepsis secondary to Right sided pneumonia Septic shock based on lactate of 4.5 (per CMS) Severe sepsis based on 2016 Surviving Sepsis Guidelines Organ dysfunction = MAP <70, hyperbilirubinemia (2.4), thrombocytopenia ( 16) SOFA on admission = 7, presumed baseline of 0 Pneumonia -right upper lobe and right lower lobe-sputum positive for Pseudomonas , Haemophilus, and MSSA Acute Hypoxia respiratory failure-currently on 16 L; BiPAP initiated 12/18 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 LIEN Pancytopenia (POA) including platelet count of 16, WBC 3.7, and hgb of 8.9 on admission Hyperbilirubinemia, elevated AST and Alk phos, POA Hypercalcemia-Zometa given 3, Hypoalbuminemia Elevated LDH Elevated CRP and procalcitonin, secondary to acute infection Severe PCM - prealbumin undetectable Thrush Macrocytic anemia Rheumatoid arthritis-Imuran/Enbrel Immunocompromised pt Chronic antritis Tobacco dependency Encephalopathy Sinus tachycardia Dysphasia Acute on chronic Hyponatremia (POA) (baseline 131-134)-resolved Volume overload/anasarca Hypokalemia-12/19/17 Epistaxis, minor-12/20/ [id number] PLAN Date 14 antibiotics with cefepime, Levaquin, and vancomycin-anticipate discontinuing after today. Remains on high dose methylprednisolone for respiratory distress. Dependent on high flow oxygen/BiPAP. Chemotherapy 12/16-12/18 for neuroendocrine malignancy. G-CSF initiated 12/19. Remains pancytopenic, 1 unit packed red blood cells yesterday. Platelet pack today; Afrin nasal spray as needed for minor epistaxis-no ongoing bleeding this morning. Pupil asymmetry not previously present-mental status has not deteriorated compared to yesterday or the prior day and if anything patient may be slightly more alert but with thrombocytopenia will require CT head. Will also image abdomen/pelvis due to persistent/increasing abdominal pain to exclude intra-abdominal bleed. No contrast to be given. Calcium stable following treatment. Urine output improved with albumin/Bumex; however BUN climbing. Continue albumin but will hold Bumex today. Mycelex troches discontinued nursing request, will coated tongue with nystatin suspension for management of thrush will remains on antibiotics or neutropenic. Case discussed with CCU nursing and Dr. Galarza. Prognosis remains guarded; critically ill. DVT Prophylaxis: SCD's GI Prophylaxis: Protonix Resuscitation Status: Do Not Resuscitate - Physician Narrative Narrative: Date: 12/20/17 Time: 1213 Hospital Course Summary Disclaimer: The visit summary below is not to be considered part of the above Progress Note. Hospital Course: 12/07/17 Admit, inpatient status, to CCU; Patient is critically ill. Dr. Vivar attending. Septic shock based on CMS and Severe Sepsis based on Surviving Sepsis He received full 30 mL/kg bolus in ED. If unable to keep MAP >65, will need to start norepinephrine, which would indicate shock based on 2016 rec. Initial lactate was 4.5; if lactate is still elevated >4 on recheck, this would also indicate shock based on 2016 recommendations. Blood cultures already drawn. Repeat physical exam done. Repeat procalcitonin in am. Sinus tachycardia has improved after fluid boluses, from 138-105. Right sided pneumonia in an immunocompromised patient with significant smoking history. Cefepime was started in the ED -- will continue with this and add vancomycin and levofloxacin d/t immunocompromised state. Check for strep pneumo and legionella. Check sputum culture. Consult Dr. Mckinney; suspect he may require additional respiratory intervention and with smoking hx likely has underlying COPD. Ev Pan. Ask RT to provide tobacco cessation information. Nicotine patch ordered. Hold RA medications including Enbrel & Imuran. Pancytopenia Suspect d/t sepsis. If no improvement in next few days consider heme consultation. Platelets only 16 on admission. Will give platelet pack x1. Lovenox is contraindicated. SCD for DVT prevention. Macrocytic anemia - check iron studies, folate, vitamin B12. Hyperbilirubinemia Suspect d/t sepsis. Hepatomegaly and RUQ tenderness. He had liver sonogram in Aug, 2017 which was normal. Check INR. Hyponatremia and hypercalcemia Suspect d/t dehydration. Continue IVF and check in am. Advanced directives None. Requests full resuscitation. 12/08/17 Continue with levofloxacin, cefepime and vancomycin for pulmonary coverage. Neb treatments and acapella to continue. Monitor saturations and work of breathing - on 2L currently. Will have speech check swallow secondary to coughing with swallow. Hemoglobin decreased to 6.7 - transfusion initiated. Iron/B12/Folate tests pending. Platelets increased to 30K. Monitor. No Lovenox due to thrombocytopenia. Sodium with slight improvement to 128, but potassium decreased to 3.7. Will change IVF to NS with 20KCl and 20KPhos and decrease rate to 75cc/hr. BP improved. Recheck CMP, Mg, Phos, Procalcitonin, and CBC secondary to resolving septic shock. Continues to need close nursing care and support, continue CCU monitoring. 12/09/17 Continue with levofloxacin, cefepime and vancomycin for pulmonary coverage. Neb treatments and acapella to continue. Monitor saturations and work of breathing - on 2L currently. Start Mycelex lola for thrush. Speech check recommends pureed diet as very difficult to chew foods - may need to upgrade is not liking pureed consistency. Platelets decreased to 20K. Monitor. Give platelet pack. Hemoglobin improved to 8.2 post transfusion yesterday. Sodium improvement to 134, with potassium and phos normal at 4.2 and 4.3 respectively. Continue IVF to NS with 20KCl and 20KPhos but decrease rate to 50cc/hr. BP improved. HR still in 115 range. Start Bladder retraining - possible discontinue Rivas in near future. Start Miralax daily to help bowel function - hold with loose stool. PT/OT consult to help improve strength. Can transfer to medical floor for continuation of care. 12/10/17 The patient became confused last night and was pulling off his oxygen and pulled out his IV. He is more calm at this time but is still confused. With his severity of illness, will transfer back to intensive care when a bed is open. In the meantime will have his nurse stay close to his room and obtain continuous oximetry. Dr. Galarza was called and consulted regarding his pancytopenia. We'll check PTH regarding hypercalcemia. His hypercalcemia is likely worse than it appears since he also has hypoalbuminemia. Hold IV fluids for now. He is 9 L up on fluids. May require diuresis. Continue Rivas catheter for now. Check ammonia level regarding altered mental status. Continue with levofloxacin, cefepime and vancomycin for pneumonia with immunosuppression. Neb treatments and acapella to continue. Monitor saturations and work of breathing - now requiring 4 L PT/OT consult. 12/11/17 The patient had recurrence of elevated lactate yesterday despite continued treatment with triple antibiotics. Heart rate was back up to 130. The patient was given IV fluids. This morning hemoglobin is dropped to 7.9 and platelets are 18,000. Discussed with Dr. Galarza and we will give 1 platelet pack and 1 unit of blood. There is concern for occult malignancy and we will obtain a CT head, chest, abdomen and pelvis all without contrast today. Regarding his elevated calcium, PTH was low. Await results of CAT scans. Regarding Pseudomonas and MSSA pneumonia, continue Levaquin. Stop cefepime. Continue vancomycin for now until blood cultures have returned. 12/12/17 Continue levofloxacin and vancomycin for antimicrobial coverage. Dr Galarza considering initiation of chemotherapy. Discussed with Dr Galarza about patient significantly declined status-concern currently too ill to start chemo. Worry that a large component of patient's acute problems are due to his cancerous process - uncertain if will make much gains without treating cancer, but uncertain how well he could tolerate chemo. Ultimately decided to wait until final path report returns before initiating chemo. Dr Galarza starting treatments to help protect from tumor lysis. IVF change to D5W with 2amps Bicarb at 75cc/hr to alkalinize urine. 12/13/17 More somnolent and weak this afternoon. Oral drive decreased. Continue levofloxacin and vancomycin for antimicrobial coverage. Increase rate of D5W with 2amps Bicarb to 100 cc/hr. Did give Lasix 20mg IV to help minimize edema and increase urine output. Zometa initiated by Dr Galarza to help hypercalcemia. Cautious oral intake secondary to somnolence. Continue pain control. Restart cefepime due to worsening pneumonia. 12/14/17 Dr Samayoa discussed with family - with small cell cancer, only hope for survival is chemotherapy. With patient's significant decline, uncertain if pt could survive chemo. Will continue with antimicrobial therapy. Add Solu-Medrol to try to decrease pulmonary inflammation. Platelet transfusion given due to declining platelets of 15. IVF changed to D5 1/2NS at 75. Lasix given earlier to help motivate fluid. Will repeat dose this evening. 12/15/17 More somnolent today. Speech evaluated patient-recommends NPO (to somnolent and weak to attempt swallow). O2 needs increasing - 6L. Creatine with increase to 1.5, urine output decreasing. Platelets 27 after 2 platelet pack transfusion yesterday. HGB 7.9. Oncology planning chemotherapy this afternoon - high risk for complications, but not likely to survive without treating his cancer. Discussed with about code status. Would recommend DNR as if patient would arrest, feel resuscitative measures would be futile. needs to discuss with family about this. Will continue with antimicrobial therapy and Solu-Medrol. 12/16/17 Oncology planning chemotherapy this afternoon - high risk for complications, but not likely to survive without treating his cancer. Discussed with about code status. Would recommend DNR as if patient would arrest, feel resuscitative measures would be futile. needs to discuss with family about this. Will continue with antimicrobial therapy and Solu-Medrol. 12/17/17 Family has elected to convert to DO NOT RESUSCITATE status. Chemotherapy initiated with etoposide and carboplatin; platelets being given today for count of 20. Ongoing antibiotic therapy-day 11. Persistent dysphasia with minimal oral intake, Dobbhoff to be placed. 12/18/17 Persistent pancytopenia; day 3 chemotherapy, day 12 triple antibiotics for sepsis. Oxygen demand increasing, creatinine climbing-converted to Bumex with albumin to attempt to diurese. Chest x-ray with increasing pleural effusions and pulmonary edema. Unable to place Dobbhoff and volume status precludes TPN. Prognosis guarded at best. 12/19/17 Date 13 antibiotics with cefepime, Levaquin, and vancomycin. Remains on high dose methylprednisolone for respiratory distress. Dependent on high flow oxygen/BiPAP. Chemotherapy 12/16-12/18 for neuroendocrine malignancy. G-CSF initiated 12/19. Remains pancytopenic, 1 unit packed red blood cells today. Will require platelets if any evidence of blood loss. Anticipate platelet transfusion tomorrow. Calcium stable following treatment. Urine output improving with albumin/Bumex; BUN climbing-continue regimen today but may not be able to continue if uremia progresses. IV fluids discontinued; supplement potassium IV due to inability to take oral medications. Repeat chest x-ray in a.m. 12/20/17 Remains pancytopenic, 1 unit packed red blood cells yesterday. Platelet pack today; Afrin nasal spray as needed for minor epistaxis-no ongoing bleeding this morning. Pupil asymmetry not previously present-mental status has not deteriorated compared to yesterday or the prior day and if anything patient may be slightly more alert but with thrombocytopenia will require CT head. Will also image abdomen/pelvis due to persistent/increasing abdominal pain to exclude intra-abdominal bleed. No contrast to be given. Calcium stable following treatment. Urine output improved with albumin/Bumex; however BUN climbing. Continue albumin but will hold Bumex today. Mycelex troches discontinued nursing request, will coated tongue with nystatin suspension for management of thrush will remains on antibiotics or neutropenic.
--- NOTE | 2017-12-20 13:50 | Progress Note ---
Oncology Subjective More alert. talkative. Limited motion on request but nurse relates moving both arms. Pupils unequal this morning. CT head negative. Exam Vital signs: Temperature 97.6 F 12/20/17 08:00 Pulse Rate 108 H 12/20/17 08:42 Respiratory Rate 26 H 12/20/17 10:58 Blood Pressure 106/77 12/20/17 06:00 Pulse Oximetry 97 12/20/17 10:58 - Constitutional mild distress - Routine HEENT Exam Head: Present: normocephalic Eye: Present: EOMI. Absent: PERRL ENT: Absent: mucous membranes moist - Routine Neck Exam Present: supple. Absent: lymphadenopathy - Routine Respiratory Exam Present: accessory muscle use, rales, rhonchi - Routine Cardiovascular Exam Present: RRR, no murmur - Routine Abdominal Exam Present: soft, tenderness, distended - Routine Extremities Exam Present: edema. Absent: cyanosis - Routine Skin Exam Present: dry, warm - Routine Neurological Exam Present: alert (left pupil 4 mm right 2 mm new finding. Limitd motion of arms. ) Oncology Results - Labs CBC & Chem 7: 12/20/17 04:02 12/20/17 04:02 Labs: Short CBC 12/20/17 Range/Units 04:02 WBC 1.3 L* (4.5-11.0) T/MM3 Hgb 8.4 L D (13.5-17.5) GM/DL Hct 25.0 L D (41-53) % Plt Count 9 L* D (130-400) T/MM3 BMP 12/20/17 04:02 Sodium 150 H Potassium 3.6 Chloride 110 H Carbon Dioxide 25 BUN 88.0 H* Creatinine 2.0 H Glucose 179 H Calcium 6.8 L D Liver Function 12/20/17 Range/Units 04:02 Total Bilirubin 1.40 H (0.20-1.30) MG/DL AST 66 H (17-59) U/L ALT 36 (21-72) U/L Alkaline Phosphatase 292 H (38-126) U/L Albumin 2.9 L (3.5-5.0) g/dL Laboratory Tests 12/19/17 12/20/17 12/20/17 04:40 04:02 04:02 WBC 1.3 L* Hgb 8.4 L D Hct 25.0 L D Plt Count 9 L* D Sodium 150 H Potassium 3.6 Chloride 110 H Carbon Dioxide 25 Creatinine 2.0 H Calcium 7.9 L D Total Bilirubin 1.40 H AST 66 H ALT 36 Lactate Dehydrogenase 4661 H - Imaging and Cardiology CT scan - abdomen Additional comments: Liver mets Pelvic fluid. Assessment and Plan Assessment and Plan: 1. 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 Began chemotherapy with carboplatin and etoposide on 12/16/17. Completed on 12/18/17. Started G-CSF 12/19. Continuing aggressive support. . 2. Moderate respiratory distress/respiratory failure due to advanced disease and obstructive pneumonia. Pulmonology following. On high flow O2. In no distress 3. Hypercalcemia due to malignancy. Improving, calcium level 10.0 on 12/17/17, 8.6 on 12/18/17, 7.9 on 12/19/17. 6.8 with albumin of 2.7 on 12/20/17 4. Pancytopenia; neutropenia and thrombocytopenia due to bone metastasis and most likely bone marrow metastases. Platelets on 12/17/17 are 20 K, platelets 23K on 12/18/17. HGB on 12/18/17 is 7.3, WBC 1.9/ANC 1.7, 12/19/17: WBC 2.0, ANC 1.9, PLT 16. 3/08/29 WBC1.3, ANC-1.1, PLT-9 Platelets given. 5. Anemia Hgb 7.2 on 12/19/17. May benefit from transfusion. 6. LDH is starting to decrease 7. Renal insufficiency Creatinine stable at 2.0 on 12/20/17. 8. Respiratory insufficency. On High flow O2. 9. Unequal pupils with negative CT. Will follow. Plan Completed chemotherapy, supportive care, antibiotics. Received Etoposide day 3 on 12/18/17. Plan C-GSF for neutropenia starting12/19 . Follow counts daily; now with fluid overload, renal/liver function is stable to slightly improved today. Prognosis guarded. - Time Spent With Patient Total time spent is greater than 50% in coordination of care (as documented) at patient's floor/unit and/or counseling patient: 25 - 35 minutes
[2017-12-20] MEDS: ALLOPURINOL 100 MG TABLET PO SCH (14:10)
[2017-12-20] MEDS: NYSTATIN 500,000 units/5 ml ORAL LIQUID PO SCH ×3 (14:10→21:26)
[2017-12-20] MEDS: TBO-FILGRASTIM 480mcg/0.8ml INJECTION SQ SCH (20:12)
[2017-12-21] MEDS: METHYLPREDNISOLONE SOD SUCC 125mg/2ml INJECTION IVP SCH ×4 (03:19→20:32)
[2017-12-21] MEDS: ALBUMIN HUMAN 25gm (25%) 100ml IV SCH (03:19)
[2017-12-21] MEDS: ALBUTEROL/IPRATROPIUM 2.5mg-0.5mg/3ml NEB AEROSOL SCH ×5 (04:10→20:09)
[2017-12-21] MEDS: MORPHINE SULFATE 4mg INJECTION IVP PRN ×4 (04:25→22:24)
[2017-12-21] MEDS ORDERED: ALTEPLASE (Cathflo*) 2mg INJECTION IV ONE (04:32)
--- NOTE | 2017-12-21 08:19 | CT Scan Report ---
Indication: LLQ pain, thrombocytopenia PROCEDURE: CT abdomen pelvis wo con: Encounter: Initial Comparison: CT abdomen and pelvis dated December 11, 2017 Technique: Axial CT images were performed through the abdomen and pelvis without intravenous contrast. Coronal and sagittal two-dimensional reformats. Automated Exposure Control and Iterative Reconstruction dose reducing techniques were utilized. Findings: Mass in the right middle lobe. Moderate bilateral pleural effusions with compressive atelectasis in the lower lobes. Small pericardial effusion. The liver is diffusely infiltrated with metastases. There is moderate volume ascites. The spleen is grossly unremarkable. The pancreas is within normal. The adrenal glands and kidneys are normal. No bowel obstruction. Rivas catheter within the bladder. No free air. Subcutaneous edema. Bone windows show no acute findings. Impression: 1. Evidence of volume overload with pleural effusions, ascites and anasarca. 2. Otherwise, no gross acute disease process seen in the abdomen or pelvis on this noncontrast study. There is a preliminary report by [employer]. .
--- NOTE | 2017-12-21 08:21 | CT Scan Report ---
Indication: thrombocytopenia, assx pupils, AMS PROCEDURE: CT head/brain wo con: Encounter: Initial Comparison: None Technique: Axial CT images through the head were performed without contrast. Iterative Reconstruction dose reducing technique was utilized. FINDINGS: The ventricles are of normal size, shape, and contour for the patient's age. There are scattered areas of low attenuation in the white matter which most likely represent changes from chronic microvascular ischemia. The brainstem, cerebellum, and cerebral hemispheres otherwise have a normal morphology and CT attenuation. There is no evidence of midline displacement. No hemorrhage, signs of acute territorial stroke, mass effect, mass lesions, or edema is evident. The visualized portions of the skull base, midface, and calvarium demonstrate no abnormality. The paranasal sinuses are well aerated and free of significant disease. The tympanic and mastoid cavities appear normal. IMPRESSION: No acute intracranial abnormality or hemorrhage. There is a preliminary report by [employer]. .
[2017-12-21] MEDS ORDERED: DiphenhydrAMINE 25 MG CAPSULE PO ONE (08:38)
[2017-12-21] MEDS ORDERED: NS FLUSH BAG 500ml IV PRN (08:38)
[2017-12-21] MEDS ORDERED: FUROSEMIDE 20 MG/2 ML INJECTION IVP ONE (08:38)
[2017-12-21] MEDS: NICOTINE 21 MG PATCH TD SCH (08:47)
[2017-12-21] MEDS: CEFEPIME 1 GM in NS 50 ML IV SCH (08:48)
[2017-12-21] MEDS: NICOTINE PATCH REMOVAL TD SCH (08:48)
[2017-12-21] MEDS: PANTOPRAZOLE 40 MG INJECTION IVP SCH (08:51)
[2017-12-21] MEDS: ALLOPURINOL 100 MG TABLET PO SCH (08:51)
[2017-12-21] MEDS: NYSTATIN 500,000 units/5 ml ORAL LIQUID PO SCH ×4 (08:51→20:33)
[2017-12-21] MEDS: POLYETHYL GLYCOL 3350 17gm PACKET PO SCH (08:52)
[2017-12-21] MEDS: SALINE 0.65% NASAL SPRAY 44 ML BOTTLE EA NOSTRIL SCH ×4 (08:52→20:32)
--- NOTE | 2017-12-21 10:16 | Pulmonology Progress Note ---
Subjective Principal diagnosis: pneumonia Interval history: Pt in bed, currently on bipap and just given ativan. Per RN he does wake and answers appropriately, still very weak. Per RN has been pulling off his mask, when he does his sats drop to 70's. Exam Vital signs: Temperature 97.8 F 12/21/17 04:00 Pulse Rate 107 H 12/21/17 09:26 Respiratory Rate 10 12/21/17 09:26 Blood Pressure 131/68 12/21/17 09:00 Pulse Oximetry 98 12/21/17 09:00 Inpatient Medications: Generic Name Dose Route Start Last Admin Trade Name Freq PRN Reason Stop Dose Admin Hydrocodone Bitart/Acetaminophen 1 tab 12/07/17 11:21 12/12/17 03:02 [place] 5/325 PO 1 tab QID PRN Administration Pain Albuterol/Ipratropium 3 ml 12/07/17 16:00 12/21/17 07:21 Duoneb AEROSOL 3 ml Q4HR RANDALL Administration Allopurinol 100 mg 12/15/17 18:30 12/21/17 08:51 Zyloprim PO 100 mg DAILY RANDALL Administration Benzonatate 100 mg 12/07/17 12:48 Tessalon Perles PO TID PRN Cough Bisacodyl 10 mg 12/07/17 12:53 Dulcolax RECTALLY DAILY PRN Constipation Bumetanide 1 mg 12/18/17 14:30 12/20/17 05:50 Bumex 1 Mg/4 Ml Inj. IVP 1 mg Q8H RANDALL Administration Diphenhydramine HCl 50 mg 12/16/17 14:00 Benadryl IVP PRN PRN For reaction to chemo Fluticasone Propionate 1 spray 12/07/17 11:25 Flonase EA NOSTRIL DAILY PRN PRN orders Hydrocortisone Sodium Succinate 100 mg 12/16/17 14:00 Solu-Cortef IVP PRN PRN For reaction to chemo Vancomycin HCl 1,000 mg/ 250 mls @ 250 mls/hr 12/18/17 00:01 12/21/17 01:28 Sodium Chloride IV 12/21/17 11:00 Infused Q36H RANDALL Infusion Cefepime HCl 1 gm/ Sodium 50 mls @ 100 mls/hr 12/18/17 21:00 12/21/17 08:48 Chloride IV 12/21/17 11:00 100 mls/hr Q12H RANDALL Administration Potassium Chloride 40 meq/ 1,020 mls @ 100 mls/hr 12/21/17 10:00 Dextrose IV .[id number] RANDALL Albumin Human 50 mls @ 50 mls/hr 12/21/17 12:00 Albumin Human 12.5 Gm IV Q8H RANDALL Insulin Aspart 1 - 5 unit 12/21/17 09:19 Novolog SQ SS PRN Hyperglycemia Protocol Lorazepam 0.25 mg 12/07/17 12:48 12/21/17 09:55 Ativan Inj IVP 0.25 mg Q4H PRN Administration Air hunger/Anxiety Methylprednisolone Sodium Succinate 125 mg 12/15/17 15:30 12/21/17 08:50 Solu-Medrol IVP 125 mg Q6HR RANDALL Administration Methylprednisolone Sodium Succinate 125 mg 12/16/17 14:00 Solu-Medrol IVP PRN PRN For reaction to chemo Morphine Sulfate 2 - 4 mg 12/19/17 10:49 12/21/17 08:49 Morphine Sulfate Inj IVP 4 mg Q2HR PRN Administration Pain Nicotine 21 mg 12/07/17 10:45 12/21/17 08:47 Nicoderm TD 21 mg DAILY RANDALL Administration Nicotine 1 removal 12/08/17 09:00 12/21/17 08:48 Nicotine Patch Removal TD 1 removal DAILY RANDALL Administration Nystatin 5 ml 12/20/17 13:00 12/21/17 08:51 Mycostatin PO 12/30/17 12:59 5 ml QID RANDALL Administration Ondansetron HCl 4 mg 12/07/17 11:21 12/20/17 10:20 Zofran IVP 4 mg Q6H PRN Administration Nausea Oxymetazoline HCl 2 spray 12/20/17 11:00 12/20/17 13:25 Afrin Nasal [place] EA NOSTRIL 2 spray BID PRN Administration Bleeding Pantoprazole Sodium 40 mg 12/17/17 15:30 12/21/17 08:51 Protonix Iv IVP 40 mg DAILY RANDALL Administration Pharmacy Profile Note 5 ml 12/14/17 11:19 Lidocaine/Maalox/Benadryl Soln PO Q4H PRN Mouth pain Polyethylene Glycol 17 gm 12/09/17 11:00 12/21/17 08:52 Miralax PO Not Given DAILY RANDALL Sodium Chloride 2 spray 12/08/17 10:15 12/21/17 08:52 Deep Sea Nasal Moisturizing [place] EA NOSTRIL 2 spray QID RANDALL Administration Sodium Chloride 500 ml 12/15/17 16:40 12/20/17 09:58 Normal Saline IV 500 ml PRN PRN Administration Sodium Chloride 10 - 80 ml 12/15/17 16:40 Iv Flush IV PRN PRN [place] Sodium Chloride 500 ml 12/21/17 08:38 Normal Saline IV PRN PRN Tbo-Filgrastim 480 mcg 12/19/17 19:00 12/20/17 20:12 Granix SQ 480 mcg Q24H RANDALL Administration Discontinued Medications Generic Name Dose Route Start Last Admin Trade Name Freq PRN Reason Stop Dose Admin Acetaminophen 650 mg 12/11/17 10:30 12/11/17 20:30 Tylenol PO 12/11/17 10:31 325 mg O ONE Administration Albumin Human 25 g 12/17/17 15:07 12/17/17 16:01 Albumin Human IV 12/17/17 15:08 25 g Q8H ONE Administration Albumin Human 25 g 12/18/17 12:00 Albumin Human IV Q8H [facility] Albuterol/Ipratropium 3 ml 12/07/17 11:00 12/07/17 16:44 Duoneb AEROSOL Not Given RTQID [facility] Allopurinol 300 mg 12/12/17 13:45 12/17/17 08:56 Zyloprim PO Not Given DAILY [facility] Alteplase, Recombinant 2 mg 12/21/17 04:32 12/21/17 04:59 Cathflo Activase IV 12/21/17 04:33 2 mg O ONE Administration Bumetanide 1 mg 12/19/17 19:00 12/19/17 19:10 Bumex 1 Mg/4 Ml Inj. IVP 12/19/17 19:01 1 mg O ONE Administration Clotrimazole 10 mg 12/09/17 12:00 12/20/17 10:19 Mycelex Pj MM Not Given 5XD [facility] Diphenhydramine HCl 50 mg 12/09/17 10:36 12/09/17 12:51 Benadryl PO 12/09/17 10:37 50 mg ONCE ONE Administration Diphenhydramine HCl 25 mg 12/11/17 10:29 12/11/17 20:30 Benadryl PO 12/11/17 10:30 25 mg ONCE ONE Administration Diphenhydramine HCl 50 mg 12/21/17 08:38 Benadryl PO 12/21/17 08:39 ONCE ONE Furosemide 20 mg 12/11/17 10:29 12/11/17 23:59 Lasix IVP 12/11/17 10:30 20 mg O ONE Administration Furosemide 20 mg 12/12/17 14:06 12/12/17 14:47 Lasix IVP 12/12/17 14:07 20 mg ONCE ONE Administration Furosemide 20 mg 12/13/17 09:29 12/13/17 11:51 Lasix IVP 12/13/17 09:30 20 mg ONCE ONE Administration Furosemide 40 mg 12/14/17 11:19 12/14/17 12:14 Lasix IVP 12/14/17 11:20 40 mg O ONE Administration Furosemide 40 mg 12/15/17 09:29 12/15/17 11:44 Lasix IVP 12/15/17 09:30 40 mg O ONE Administration Furosemide 40 mg 12/15/17 17:41 12/15/17 18:32 Lasix IVP 12/15/17 17:42 40 mg O ONE Administration Furosemide 40 mg 12/16/17 15:13 12/16/17 15:18 Lasix IVP 12/16/17 15:14 40 mg O ONE Administration Furosemide 20 mg 12/17/17 11:44 12/17/17 12:27 Lasix IVP 12/17/17 11:45 20 mg ONCE ONE Administration Furosemide 20 mg 12/17/17 16:00 12/17/17 15:35 Lasix IVP 12/17/17 16:01 20 mg Q8H ONE Administration Furosemide 20 mg 12/21/17 08:38 Lasix IVP 12/21/17 08:39 O ONE Cefepime HCl 1 gm/ Sodium 100 mls @ 200 mls/hr 12/07/17 08:43 12/07/17 09:33 Chloride IV 12/07/17 09:12 Infused O ONE Infusion Sodium Chloride 1,000 mls @ 1,000 mls/hr 12/07/17 08:43 12/07/17 10:08 Normal Saline IV 12/07/17 09:42 Infused .Q1H ONE Infusion Sodium Chloride 1,000 mls @ 999.9 mls/hr 12/07/17 09:13 12/07/17 11:38 Normal Saline IV 12/07/17 10:12 Infused .Q1H ONE Infusion Cefepime HCl 1 gm/ Sodium 50 mls @ 100 mls/hr 12/07/17 16:00 12/12/17 00:59 Chloride IV Not Given Q6H [facility] Levofloxacin/Dextrose 750 mg in 150 mls @ 100 mls/hr 12/07/17 11:21 12/17/17 13:13 Levaquin Premix IV Infused Q24H [facility]ALL Infusion Sodium Chloride 1,000 mls @ 125 mls/hr 12/07/17 11:21 12/08/17 10:31 Normal Saline IV Infused .Q8H [facility] Infusion Vancomycin HCl 1,250 mg/ 250 mls @ 200 mls/hr 12/08/17 02:00 12/09/17 18:58 Sodium Chloride IV Not Given Q12H RANDALL Vancomycin HCl 1,750 mg/ 500 mls @ 250 mls/hr 12/07/17 14:00 12/07/17 15:00 Sodium Chloride IV 12/07/17 14:01 Infused O ONE Infusion Sodium Chloride 500 mls @ 500 mls/hr 12/08/17 03:40 12/08/17 03:40 Normal Saline IV 12/08/17 04:39 Not Given .Q1H ONE Sodium Chloride 500 mls @ 500 mls/hr 12/08/17 05:30 12/08/17 05:17 Normal Saline IV 12/08/17 06:30 Not Given .Q1H RANDALL Potassium Chloride 20 meq/ 1,014.5455 mls @ 75 mls/hr 12/08/17 09:45 13:00 Potassium Phosphate 20 meq/ IV 0 mls/hr Sodium Chloride .[id number] RANDALL Infusion Potassium Chloride 20 meq/ 1,014.5455 mls @ 50 mls/hr 12/09/17 11:00 12:05 Potassium Phosphate 20 meq/ IV Infused Sodium Chloride .[id number] RANDALL Infusion Vancomycin HCl 1,750 mg/ 500 mls @ 250 mls/hr 12/09/17 14:00 12/12/17 08:00 Sodium Chloride IV 12/12/17 07:30 Not Given Q12H RANDALL Sodium Chloride 1,000 mls @ 500 mls/hr 12/10/17 16:53 12/10/17 19:30 Normal Saline IV 12/10/17 18:52 Infused .Q2H ONE Infusion Sodium Chloride 1,000 mls @ 75 mls/hr 12/11/17 18:00 12/12/17 14:46 Normal Saline IV Infused .[id number] RANDALL Infusion Sodium Chloride 500 mls @ 250 mls/hr 12/11/17 15:45 12/11/17 18:20 Normal Saline IV 12/11/17 17:44 Infused .Q2H RANDALL Infusion Vancomycin HCl 1,750 mg/ 500 mls @ 250 mls/hr 12/13/17 08:00 Sodium Chloride IV 12/13/17 08:00 Q24H RANDALL Sodium Bicarbonate 100 meq/ 1,100 mls @ 75 mls/hr 12/12/17 14:00 12/13/17 12: 30 Dextrose IV Infused .[id number] RANDALL Infusion Vancomycin HCl 1,250 mg/ 250 mls @ 200 mls/hr 12/14/17 08:00 12/14/17 11:00 Sodium Chloride IV Infused Q48H RANDALL Infusion Zoledronic Acid 3 mg in 75 mls @ 150 mls/hr 12/13/17 12:00 12/13/17 14:59 Zometa IV 12/13/17 12:29 Infused O ONE Infusion Sodium Bicarbonate 100 meq/ 1,100 mls @ 100 mls/hr 12/13/17 12:30 12/16/17 12 :04 Dextrose IV Not Given .Q11H RANDALL Cefepime HCl 1 gm/ Sodium 100 mls @ 200 mls/hr 12/14/17 19:30 12/15/17 01:35 Chloride IV Infused Q6H RANDALL Infusion Cefepime HCl 1 gm/ Sodium 50 mls @ 200 mls/hr 12/15/17 09:00 12/17/17 09:25 Chloride IV Infused Q6HR [facility]ALL Infusion Vancomycin HCl 1,000 mg/ 250 mls @ 250 mls/hr 12/15/17 12:00 12/16/17 14:11 Sodium Chloride IV 12/17/17 11:59 Infused Q24H RANDALL Infusion Dextrose/Sodium Chloride 1,000 mls @ 75 mls/hr 12/15/17 13:30 12/19/17 14:00 D5-1/2ns IV Infused .[id number] RANDALL Infusion Dexamethasone 10 mg/ Sodium 52.5 mls @ 210 mls/hr 12/16/17 14:00 12/16/17 14: 39 Chloride IV 12/16/17 14:14 Infused O ONE Infusion Carboplatin 377 mg/ Dextrose 287.7 mls @ 250 mls/hr 12/16/17 14:30 12/16/17 16:00 IV 12/16/17 15:39 Infused O ONE Infusion Etoposide 100 mg/ Sodium 505 mls @ 125 mls/hr 12/16/17 15:30 12/16/17 20:00 Chloride IV 12/16/17 19:32 Infused O ONE Infusion Dexamethasone 10 mg/ Sodium 52.5 mls @ 150 mls/hr 12/17/17 14:00 12/17/17 14: 42 Chloride IV 12/17/17 14:20 Infused O ONE Infusion Etoposide 100 mg/ Sodium 505 mls @ 125 mls/hr 12/17/17 14:30 12/17/17 19:00 Chloride IV 12/17/17 18:32 Infused O ONE Infusion Cefepime HCl 1 gm/ Sodium 50 mls @ 100 mls/hr 12/17/17 17:00 12/18/17 09:01 Chloride IV 100 mls/hr Q8HR RANDALL Administration Levofloxacin/Dextrose 750 mg in 150 mls @ 100 mls/hr 12/19/17 09:00 12/19/17 12:15 Levaquin Premix IV Infused Q48H RANDALL Infusion Dexamethasone 10 mg/ Sodium 52.5 mls @ 150 mls/hr 12/18/17 14:00 12/18/17 14: 38 Chloride IV 12/18/17 14:20 Infused O ONE Infusion Etoposide 100 mg/ Sodium 505 mls @ 125 mls/hr 12/18/17 14:30 12/18/17 14:38 Chloride IV 12/18/17 18:32 125 mls/hr O ONE Administration Albumin Human 100 mls @ 50 mls/hr 12/18/17 12:00 12/21/17 05:19 Albumin Human 25 Gm IV Infused Q8H [facility] Infusion Potassium Chloride 40 meq/ 520 mls @ 100 mls/hr 12/19/17 13:00 03/10/18 19:00 Dextrose IV 12/19/17 18:11 100 mls/hr .Q5H12M [facility]ANDALL Infusion Magnesium Hydroxide 30 ml 12/07/17 12:53 Mom PO DAILY PRN Constipation Metoclopramide HCl 5 mg 12/17/17 14:30 12/19/17 10:58 Reglan Not Given Q6H RANADLL Morphine Sulfate 2 mg 12/07/17 12:47 12/14/17 10:38 Morphine Sulfate Inj IVP 2 mg Q2HR PRN Administration Pain Morphine Sulfate 4 mg 12/14/17 11:20 12/19/17 09:54 Morphine Sulfate Inj IVP 4 mg Q2HR PRN Administration Pain Palonosetron 0.25 mg 12/16/17 14:00 12/16/17 14:04 Aloxi IV 12/16/17 14:01 0.25 mg O ONE Administration Pharmacy Consult 1 each 12/11/17 11:34 Pharmacy Consult - Fall Risk XX 12/11/17 11:35 ONE TIME ONE Pharmacy Consult 1 each 12/19/17 17:12 Pharmacy Consult - Fall Risk XX 12/19/17 17:13 ONE TIME ONE Potassium Chloride 20 meq 12/12/17 13:58 12/12/17 14:14 K-Dur 20 Meq Tablet PO 12/12/17 13:59 20 meq O ONE Administration Potassium Chloride 20 meq 12/13/17 12:30 12/19/17 10:58 K-Dur 20 Meq Tablet PO Not Given BIDWM RANDALL Promethazine HCl/Codeine 5 ml 12/07/17 12:49 Phenergan + Codeine PO Q6HR PRN Cough Sodium Chloride 10 - 80 ml 12/07/17 08:43 12/20/17 15:18 Iv Flush IVF 40 ml PRN PRN Administration Flushing Sodium Chloride 500 ml 12/07/17 11:24 12/10/17 16:47 Normal Saline IV 500 ml PRN PRN Administration Sodium Chloride 500 ml 12/09/17 10:36 12/11/17 08:14 Normal Saline IV 500 ml PRN PRN Administration Sodium Chloride 500 ml 12/10/17 16:57 Normal Saline IV PRN PRN Sodium Chloride 500 ml 12/11/17 10:29 Normal Saline IV PRN PRN Sodium Chloride 500 ml 12/13/17 09:27 Normal Saline IV PRN PRN Sodium Chloride 500 ml 12/13/17 10:04 Normal Saline IV PRN PRN Sodium Chloride 500 ml 12/15/17 09:29 Normal Saline IV PRN PRN Spironolactone 12.5 mg 12/13/17 09:30 12/13/17 11:51 Aldactone PO 12/13/17 09:31 12.5 mg ONE TIME ONE Administration Vancomycin HCl 1 each 12/07/17 11:09 Pharmacy Consult - Vancomycin 12/07/17 11:10 O ONE Vancomycin HCl 1 each 12/07/17 11:21 Pharmacy Consult - Vancomycin 12/07/17 11:22 O ONE - Constitutional mild distress, thin, cachectic - Routine HEENT Exam Head: Present: normocephalic, atraumatic Eye: Present: EOMI, PERRL ENT: Present: mucous membranes moist - Routine Neck Exam Present: supple, full ROM, trachea midline - Routine Respiratory Exam Present: decreased breath sounds, rhonchi - Routine Cardiovascular Exam Present: RRR, S1, S2 - Routine Abdominal Exam Present: soft, normoactive bowel sounds - Routine Extremities Exam Present: edema, non tender, full ROM - Routine Back/Spine/Pelvis Exam Back/Spine: Present: full ROM - Routine Skin Exam Present: intact, dry - Routine Neurological Exam pt sedated on the bipap with morphine and ativan. - Routine Psychiatric Exam Present: unable to assess - Urinary Catheter Management Urethral Cath placed during this visit: yes Urethral indwelling: Yes Insertion date: 12/07/17 Insertion time: 19:45 Results - Laboratory Findings Laboratory: Laboratory Results - last 48 hr 12/19/17 12/19/17 12/19/17 04:40 10:55 10:55 WBC RBC Hgb Hct MCV MCH MCHC RDW Std Deviation Plt Count MPV Immature Gran % (Auto) Neut % (Auto) Lymph % (Auto) [place] % (Auto) Eos % (Auto) Baso % (Auto) Neut # (Auto) Lymph # (Auto) [place] # (Auto) Eos # (Auto) Baso # (Auto) Abs Immat Gran (auto) Neutrophils % (Manual) Band Neutrophils % Lymphocytes % (Manual) Monocytes % (Manual) Neutrophils # (Manual) Band Neutrophils # Lymphocytes # (Manual) Monocytes # (Manual) Nucleated RBCs Poikilocytosis Anisocytosis Tear Drop Cells Ovalocytes Helmet Cells RBC Morph Comment Turbidity Sodium Potassium Chloride Carbon Dioxide Anion Gap BUN Creatinine GFR Calculation BUN/Creatinine Ratio Glucose Calculated Osmolality Uric Acid 5.8 Calcium Phosphorus Magnesium Total Bilirubin Icterus Index AST ALT Alkaline Phosphatase Lactate Dehydrogenase Total Protein Albumin Globulin Albumin/Globulin Ratio Specimen Hemolysis Vancomycin Trough 17.00 Blood Type O Positive Antibody Screen Negative Crossmatch ([facility]) See Detail Blood Product Request 12/19/17 12/20/17 12/20/17 15:20 04:02 04:02 WBC 1.3 L* RBC 2.67 L Hgb 8.4 L D Hct 25.0 L D MCV 93.6 MCH 31.5 MCHC 33.6 RDW Std Deviation 64.5 H Plt Count 9 L* D MPV Not performed Immature Gran % (Auto) Not performed Neut % (Auto) Not performed Lymph % (Auto) Not performed [place] % (Auto) Not performed Eos % (Auto) Not performed Baso % (Auto) Not performed Neut # (Auto) Not performed Lymph # (Auto) Not performed [place] # (Auto) Not performed Eos # (Auto) Not performed Baso # (Auto) Not performed Abs Immat Gran (auto) Not performed Neutrophils % (Manual) 85.0 H Band Neutrophils % 2.0 Lymphocytes % (Manual) 10.0 L Monocytes % (Manual) 3.0 Neutrophils # (Manual) 1.1 L Band Neutrophils # 0.0 Lymphocytes # (Manual) 0.1 L Monocytes # (Manual) 0.0 Nucleated RBCs 1 Poikilocytosis 2+ Anisocytosis 2+ Tear Drop Cells 1+ Ovalocytes 1+ Helmet Cells 1+ RBC Morph Comment Abnormal Turbidity < 20 Sodium 150 H Potassium 3.6 Chloride 110 H Carbon Dioxide 25 Anion Gap 15 BUN 88.0 H* Creatinine 2.0 H GFR Calculation 35 BUN/Creatinine Ratio 44 H Glucose 179 H Calculated Osmolality 319 H Uric Acid 7.2 Calcium 6.8 L D Phosphorus Magnesium 2.1 Total Bilirubin 1.40 H Icterus Index < 2 AST 66 H ALT 36 Alkaline Phosphatase 292 H Lactate Dehydrogenase 4661 H Total Protein 4.9 L Albumin 2.9 L Globulin 2.0 L Albumin/Globulin Ratio 1.5 Specimen Hemolysis < 15 Vancomycin Trough Blood Type Antibody Screen Crossmatch ([facility]) Blood Product Request 1 unit pc issued 12/20/17 12/20/17 12/20/17 04:02 13:00 16:45 WBC RBC Hgb Hct MCV MCH MCHC RDW Std Deviation Plt Count 11 L* MPV Immature Gran % (Auto) Neut % (Auto) Lymph % (Auto) [place] % (Auto) Eos % (Auto) Baso % (Auto) Neut # (Auto) Lymph # (Auto) [place] # (Auto) Eos # (Auto) Baso # (Auto) Abs Immat Gran (auto) Neutrophils % (Manual) Band Neutrophils % Lymphocytes % (Manual) Monocytes % (Manual) Neutrophils # (Manual) Band Neutrophils # Lymphocytes # (Manual) Monocytes # (Manual) Nucleated RBCs Poikilocytosis Anisocytosis Tear Drop Cells Ovalocytes Helmet Cells RBC Morph Comment Turbidity Sodium Potassium Chloride Carbon Dioxide Anion Gap BUN Creatinine GFR Calculation BUN/Creatinine Ratio Glucose Calculated Osmolality Uric Acid Calcium Phosphorus 7.1 H Magnesium Total Bilirubin Icterus Index AST ALT Alkaline Phosphatase Lactate Dehydrogenase Total Protein Albumin Globulin Albumin/Globulin Ratio Specimen Hemolysis Vancomycin Trough Blood Type Antibody Screen Crossmatch ([facility]) Blood Product Request 1 unit ppp issued 12/21/17 12/21/17 04:00 04:00 WBC 0.5 L* D RBC 2.07 L Hgb 6.5 L D Hct 19.7 L D MCV 95.2 MCH 31.4 MCHC 33.0 RDW Std Deviation 64.8 H Plt Count 7 L* D MPV 9.6 Immature Gran % (Auto) Neut % (Auto) Lymph % (Auto) [place] % (Auto) Eos % (Auto) Baso % (Auto) Neut # (Auto) Lymph # (Auto) [place] # (Auto) Eos # (Auto) Baso # (Auto) Abs Immat Gran (auto) Neutrophils % (Manual) 76.0 H Band Neutrophils % Lymphocytes % (Manual) 24.0 Monocytes % (Manual) Neutrophils # (Manual) 0.4 L Band Neutrophils # Lymphocytes # (Manual) 0.1 L Monocytes # (Manual) Nucleated RBCs Poikilocytosis 2+ Anisocytosis 2+ Tear Drop Cells 1+ Ovalocytes 1+ Helmet Cells 1+ RBC Morph Comment Abnormal Turbidity < 20 Sodium 154 H Potassium 3.1 L Chloride 112 H Carbon Dioxide 25 Anion Gap 17 H BUN 95.0 H* Creatinine 2.3 H D GFR Calculation 30 BUN/Creatinine Ratio 41 H Glucose 179 H Calculated Osmolality 328 H Uric Acid 8.6 H Calcium 6.0 L D Phosphorus 6.9 H Magnesium Total Bilirubin Icterus Index < 2 AST ALT Alkaline Phosphatase Lactate Dehydrogenase 4217 H Total Protein Albumin 3.1 L Globulin Albumin/Globulin Ratio Specimen Hemolysis < 15 Vancomycin Trough Blood Type Antibody Screen Crossmatch ([facility]) Blood Product Request - Diagnostic Findings Chest x-ray: image reviewed (Improved RLL effusion, otherwise RUL infiltrate still noted.) Assessment and Plan - Assessment and Plan Acute Hypoxic Respiratory Failure Sepsis RUL pneumonia Right pleural effusion Met Cancer, Bx pending RA/Immune compromised - Imuran/Enbrel at home Pancytopenia - likely 2/2 sepsis, ? cancer Likely COPD Tobaccoism Hyponatremia - improved Dysphagia - alt diet Plan: Pt currently on bipap, f 12, 07/17, 40%, increased to 50% Fio2 as sats 88% after taking off mask. when off bipap uses aerosolized mask at 95%, wean to keep sats 90-95%. Cont on Bt's with A/A q4hr, solum 125mg q6hr, wean. On abx with levaquin , vanco and cefepime for pna. s/p chemo, CXR as noted. BUN/Cr up, diuresis on hold. - Time Spent With Patient Total time spent is greater than 50% in coordination of care (as documented) at patient's floor/unit and/or counseling patient: less than 15 minutes
[2017-12-21] MEDS: POTASSIUM CHLORIDE 40 MEQ in D5W 1,000 ML IV SCH ×2 (10:52→23:45)
--- NOTE | 2017-12-21 11:56 | Progress Note ---
- Date 12/21/17 Subjective: Mr. Baker had been sedated shortly before I arrived. He opened his eyes when his extremities were palpated and mumble slightly but did not respond to questions in a coherent fashion. Nursing reported minimal oral intake this morning although he was able to take allopurinol crushed in applesauce. Oxygen flow rate was decreased yesterday but has again returned FiO2 of 50% on BiPAP, urine output stable off diuretics, no fevers reported. Objective Vital signs: Temperature 97.8 F 12/21/17 04:00 Pulse Rate 107 H 12/21/17 09:26 Respiratory Rate 10 12/21/17 09:26 Blood Pressure 131/68 12/21/17 09:00 Pulse Oximetry 98 12/21/17 09:00 I/O 945/1260 Weight down approximately 1/2 kg over the past 3 days EXAM General-drowsy, mumbled speech HEENT-slight asymmetry of pupils-not is evident is yesterday, left 3 mm, right 2 mm, conjunctiva clear, sclera anicteric; face mask on-oral membranes not assessed Lungs-respirations slightly labored, breath sounds improved upper anterior lung chamorro, diminished sounds mid and lower right lung field and left base laterally ; no wheezing appreciated Cardiac-regular rhythm, low-grade tachycardia, S1 and S2-heart tones much easier to hear than they were several days ago Abd-distended, diffusely tender, diminished bowel sounds Ext-+2 edema proximal upper arms and at the elbows, no edema in the hands or wrists; +2-3 pitting edema in the thighs, edema in the feet has improved-trace at present 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, no spontaneous movement in the feet; moans when legs or arms are palpated Psych-sedated - Rhythm: Sinus Tachycardia Height/Weight/BMI: Height 1.7 m Weight 78.4 kg Body Mass Index 21.4 Results - Labs CBC & Chem 7: 12/21/17 04:00 12/21/17 04:00 Labs: S76, L24 Uric acid 8.6, LDH 4217 Calcium 6.0, albumin 3.1 Microbiology Results: Microbiology 12/10/17 15:57 Peripheral/Iv Start Blood Culture - Final No Growth After 5 Days 12/10/17 16:00 Peripheral/Iv Start Blood Culture - Final No Growth After 5 Days Assessment and Plan (1) Septic shock Current visit: Yes Status: Acute (2) Pneumonia Current visit: Yes Status: Acute (3) Neuroendocrine carcinoma metastatic to liver Problem details: Lung/liver/bone involvement Current visit: Yes Status: Acute Assessment and Plan: IMPRESSION Sepsis secondary to Right sided pneumonia Septic shock based on lactate of 4.5 (per CMS) Severe sepsis based on 2016 Surviving Sepsis Guidelines Organ dysfunction = MAP <70, hyperbilirubinemia (2.4), thrombocytopenia ( 16) SOFA on admission = 7, presumed baseline of 0 Pneumonia -right upper lobe and right lower lobe-sputum positive for Pseudomonas , Haemophilus, and MSSA Acute Hypoxia respiratory failure-currently on 16 L; BiPAP initiated 12/18 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 LIEN Pancytopenia (POA) including platelet count of 16, WBC 3.7, and hgb of 8.9 on admission Hyperbilirubinemia, elevated AST and Alk phos, POA Hypercalcemia-Zometa given 12/13, Hypoalbuminemia Elevated LDH Elevated CRP and procalcitonin, secondary to acute infection Severe PCM - prealbumin undetectable Thrush Macrocytic anemia Rheumatoid arthritis-Imuran/Enbrel Immunocompromised pt Chronic antritis Tobacco dependency Encephalopathy Sinus tachycardia Dysphasia Acute on chronic Hyponatremia (POA) (baseline 131-134)-resolved Volume overload/anasarca Hypokalemia-12/19/17 Epistaxis, minor-12/20/17, resolved Hypernatremia-12/21/17 PLAN Completed 14 days of cefepime, Levaquin, and vancomycin on 12/20. Remains on high dose methylprednisolone for respiratory distress. Dependent on high flow oxygen/BiPAP. Chest x-ray/exam slightly improved from pulmonary perspective. Repeat chest x-ray in a.m. Chemotherapy 12/16-12/18 for neuroendocrine malignancy. G-CSF initiated 12/19. Neutropenic precautions initiated 12/21. Remains pancytopenic, requires blood products intermittently-will receive packed red blood cells and platelets today. Uric acid climbing-has taken allopurinol the last 2 days but was unable to take for several days prior to that time. Pupil asymmetry noted yesterday, CT head without acute pathology. Will discuss MRI brain with Dr. Galarza. Abdominal imaging yesterday compatible with volume overload/anasarca but no evidence of acute intra-abdominal process or hemorrhage. Sodium climbing and potassium down with attempted diuresis-D5 with KCl initiated , electrolytes to be reevaluated later in the day. Diuretics discontinued yesterday, albumin infusions decreased to 12.5 g every 8 hours. Calcium stable following treatment. Mycelex troches discontinued nursing request yesterday, will coated tongue with nystatin suspension for management of thrush will remains on antibiotics or neutropenic. Case discussed with CCU nursing, pulmonary, and Dr. Galarza. Prognosis remains guarded; critically ill. DVT Prophylaxis: SCD's GI Prophylaxis: Protonix Resuscitation Status: Do Not Resuscitate - Physician Narrative Narrative: Date: 12/21/17 Time: 1152 Hospital Course Summary Disclaimer: The visit summary below is not to be considered part of the above Progress Note. Hospital Course: 12/07/17 Admit, inpatient status, to CCU; Patient is critically ill. Dr. Vivar attending. Septic shock based on CMS and Severe Sepsis based on Surviving Sepsis He received full 30 mL/kg bolus in ED. If unable to keep MAP >65, will need to start norepinephrine, which would indicate shock based on 2016 rec. Initial lactate was 4.5; if lactate is still elevated >4 on recheck, this would also indicate shock based on 2016 recommendations. Blood cultures already drawn. Repeat physical exam done. Repeat procalcitonin in am. Sinus tachycardia has improved after fluid boluses, from 138-105. Right sided pneumonia in an immunocompromised patient with significant smoking history. Cefepime was started in the ED -- will continue with this and add vancomycin and levofloxacin d/t immunocompromised state. Check for strep pneumo and legionella. Check sputum culture. Consult Dr. Mckinney; suspect he may require additional respiratory intervention and with smoking hx likely has underlying COPD. Ev Pan. Ask RT to provide tobacco cessation information. Nicotine patch ordered. Hold RA medications including Enbrel & Imuran. Pancytopenia Suspect d/t sepsis. If no improvement in next few days consider heme consultation. Platelets only 16 on admission. Will give platelet pack x1. Lovenox is contraindicated. SCD for DVT prevention. Macrocytic anemia - check iron studies, folate, vitamin B12. Hyperbilirubinemia Suspect d/t sepsis. Hepatomegaly and RUQ tenderness. He had liver sonogram in Aug, 2017 which was normal. Check INR. Hyponatremia and hypercalcemia Suspect d/t dehydration. Continue IVF and check in am. Advanced directives None. Requests full resuscitation. 12/08/17 Continue with levofloxacin, cefepime and vancomycin for pulmonary coverage. Neb treatments and acapella to continue. Monitor saturations and work of breathing - on 2L currently. Will have speech check swallow secondary to coughing with swallow. Hemoglobin decreased to 6.7 - transfusion initiated. Iron/B12/Folate tests pending. Platelets increased to 30K. Monitor. No Lovenox due to thrombocytopenia. Sodium with slight improvement to 128, but potassium decreased to 3.7. Will change IVF to NS with 20KCl and 20KPhos and decrease rate to 75cc/hr. BP improved. Recheck CMP, Mg, Phos, Procalcitonin, and CBC secondary to resolving septic shock. Continues to need close nursing care and support, continue CCU monitoring. 12/09/17 Continue with levofloxacin, cefepime and vancomycin for pulmonary coverage. Neb treatments and acapella to continue. Monitor saturations and work of breathing - on 2L currently. Start Mycelex lola for thrush. Speech check recommends pureed diet as very difficult to chew foods - may need to upgrade is not liking pureed consistency. Platelets decreased to 20K. Monitor. Give platelet pack. Hemoglobin improved to 8.2 post transfusion yesterday. Sodium improvement to 134, with potassium and phos normal at 4.2 and 4.3 respectively. Continue IVF to NS with 20KCl and 20KPhos but decrease rate to 50cc/hr. BP improved. HR still in 115 range. Start Bladder retraining - possible discontinue Rivas in near future. Start Miralax daily to help bowel function - hold with loose stool. PT/OT consult to help improve strength. Can transfer to medical floor for continuation of care. 12/10/17 The patient became confused last night and was pulling off his oxygen and pulled out his IV. He is more calm at this time but is still confused. With his severity of illness, will transfer back to intensive care when a bed is open. In the meantime will have his nurse stay close to his room and obtain continuous oximetry. Dr. Galarza was called and consulted regarding his pancytopenia. We'll check PTH regarding hypercalcemia. His hypercalcemia is likely worse than it appears since he also has hypoalbuminemia. Hold IV fluids for now. He is 9 L up on fluids. May require diuresis. Continue Rivas catheter for now. Check ammonia level regarding altered mental status. Continue with levofloxacin, cefepime and vancomycin for pneumonia with immunosuppression. Neb treatments and acapella to continue. Monitor saturations and work of breathing - now requiring 4 L PT/OT consult. 12/11/17 The patient had recurrence of elevated lactate yesterday despite continued treatment with triple antibiotics. Heart rate was back up to 130. The patient was given IV fluids. This morning hemoglobin is dropped to 7.9 and platelets are 18,000. Discussed with Dr. Galarza and we will give 1 platelet pack and 1 unit of blood. There is concern for occult malignancy and we will obtain a CT head, chest, abdomen and pelvis all without contrast today. Regarding his elevated calcium, PTH was low. Await results of CAT scans. Regarding Pseudomonas and MSSA pneumonia, continue Levaquin. Stop cefepime. Continue vancomycin for now until blood cultures have returned. 12/12/17 Continue levofloxacin and vancomycin for antimicrobial coverage. Dr Galarza considering initiation of chemotherapy. Discussed with Dr Galarza about patient significantly declined status-concern currently too ill to start chemo. Worry that a large component of patient's acute problems are due to his cancerous process - uncertain if will make much gains without treating cancer, but uncertain how well he could tolerate chemo. Ultimately decided to wait until final path report returns before initiating chemo. Dr Galarza starting treatments to help protect from tumor lysis. IVF change to D5W with 2amps Bicarb at 75cc/hr to alkalinize urine. 12/13/17 More somnolent and weak this afternoon. Oral drive decreased. Continue levofloxacin and vancomycin for antimicrobial coverage. Increase rate of D5W with 2amps Bicarb to 100 cc/hr. Did give Lasix 20mg IV to help minimize edema and increase urine output. Zometa initiated by Dr Galarza to help hypercalcemia. Cautious oral intake secondary to somnolence. Continue pain control. Restart cefepime due to worsening pneumonia. 12/14/17 Dr Samayoa discussed with family - with small cell cancer, only hope for survival is chemotherapy. With patient's significant decline, uncertain if pt could survive chemo. Will continue with antimicrobial therapy. Add Solu-Medrol to try to decrease pulmonary inflammation. Platelet transfusion given due to declining platelets of 15. IVF changed to D5 1/2NS at 75. Lasix given earlier to help motivate fluid. Will repeat dose this evening. 12/15/17 More somnolent today. Speech evaluated patient-recommends NPO (to somnolent and weak to attempt swallow). O2 needs increasing - 6L. Creatine with increase to 1.5, urine output decreasing. Platelets 27 after 2 platelet pack transfusion yesterday. HGB 7.9. Oncology planning chemotherapy this afternoon - high risk for complications, but not likely to survive without treating his cancer. Discussed with about code status. Would recommend DNR as if patient would arrest, feel resuscitative measures would be futile. needs to discuss with family about this. Will continue with antimicrobial therapy and Solu-Medrol. 12/16/17 Oncology planning chemotherapy this afternoon - high risk for complications, but not likely to survive without treating his cancer. Discussed with about code status. Would recommend DNR as if patient would arrest, feel resuscitative measures would be futile. needs to discuss with family about this. Will continue with antimicrobial therapy and Solu-Medrol. 12/17/17 Family has elected to convert to DO NOT RESUSCITATE status. Chemotherapy initiated with etoposide and carboplatin; platelets being given today for count of 20. Ongoing antibiotic therapy-day 11. Persistent dysphasia with minimal oral intake, Dobbhoff to be placed. 12/18/17 Persistent pancytopenia; day 3 chemotherapy, day 12 triple antibiotics for sepsis. Oxygen demand increasing, creatinine climbing-converted to Bumex with albumin to attempt to diurese. Chest x-ray with increasing pleural effusions and pulmonary edema. Unable to place Dobbhoff and volume status precludes TPN. Prognosis guarded at best. 12/19/17 Date 13 antibiotics with cefepime, Levaquin, and vancomycin. Remains on high dose methylprednisolone for respiratory distress. Dependent on high flow oxygen/BiPAP. Chemotherapy 12/16-12/18 for neuroendocrine malignancy. G-CSF initiated 12/19. Remains pancytopenic, 1 unit packed red blood cells today. Will require platelets if any evidence of blood loss. Anticipate platelet transfusion tomorrow. Calcium stable following treatment. Urine output improving with albumin/Bumex; BUN climbing-continue regimen today but may not be able to continue if uremia progresses. IV fluids discontinued; supplement potassium IV due to inability to take oral medications. Repeat chest x-ray in a.m. 12/20/17 Remains pancytopenic, 1 unit packed red blood cells yesterday. Platelet pack today; Afrin nasal spray as needed for minor epistaxis-no ongoing bleeding this morning. Pupil asymmetry not previously present-mental status has not deteriorated compared to yesterday or the prior day and if anything patient may be slightly more alert but with thrombocytopenia will require CT head. Will also image abdomen/pelvis due to persistent/increasing abdominal pain to exclude intra-abdominal bleed. No contrast to be given. Calcium stable following treatment. Urine output improved with albumin/Bumex; however BUN climbing. Continue albumin but will hold Bumex today. Mycelex troches discontinued nursing request, will coated tongue with nystatin suspension for management of thrush will remains on antibiotics or neutropenic. 12/21/17 Completed 14 days of cefepime, Levaquin, and vancomycin on 12/20. Remains on high dose methylprednisolone for respiratory distress. Dependent on high flow oxygen/BiPAP. Chest x-ray/exam slightly improved from pulmonary perspective. Chemotherapy 12/16-12/18 for neuroendocrine malignancy. G-CSF initiated 12/19. Neutropenic precautions initiated 12/21. Remains pancytopenic, requires blood products intermittently-will receive packed red blood cells and platelets today. Pupil asymmetry noted yesterday, CT head without acute pathology. Will discuss MRI brain with Dr. Galarza. Abdominal imaging yesterday compatible with volume overload/anasarca but no evidence of acute intra-abdominal process or hemorrhage. Sodium climbing and potassium down with attempted diuresis-D5 with KCl initiated , electrolytes to be reevaluated later in the day. Diuretics discontinued yesterday, albumin infusions decreased to 12.5 g every 8 hours.
[2017-12-21] MEDS: ALBUMIN 12.5 GM/50 ML IV SCH ×2 (12:10→19:57)
[2017-12-21] MEDS: INSULIN ASPART 100unit/ml INJECTION SQ PRN ×2 (12:10→19:02)
[2017-12-21] MEDS: DiphenhydrAMINE 50 MG/ML INJECTION IVP PRN (12:11)
[2017-12-21] MEDS ORDERED: RASBURICASE 1.5 MG IV ONE (13:35)
[2017-12-21] MEDS ORDERED: RASBURICASE 3 MG in NS 50 ML IV ONE (14:30)
--- NOTE | 2017-12-21 17:06 | Progress Note ---
<Sharifa Duarte - Last Filed: 12/21/17 17:20> Oncology Subjective On BiPAP. Opens eyes, but minimal verbal response. Shakes head no when asked if having pain. at bedside. Exam Vital signs: Temperature 97.3 F 12/21/17 14:00 Pulse Rate 92 12/21/17 15:00 Respiratory Rate 15 12/21/17 15:20 Blood Pressure 113/71 12/21/17 15:00 Pulse Oximetry 94 12/21/17 15:20 - Constitutional mild distress, well nourished, well developed - Routine HEENT Exam Head: Present: normocephalic ENT: Present: mucous membranes dry - Routine Neck Exam Present: supple. Absent: lymphadenopathy - Routine Respiratory Exam Present: decreased breath sounds. Absent: wheezes - Routine Cardiovascular Exam Present: RRR, no murmur - Routine Abdominal Exam Present: soft, normoactive bowel sounds, distended (mildly distended) - Routine Exam Scrotal: Present: swelling - Routine Extremities Exam Present: edema, joint swelling (deviation related to rheumatoid arthritis) - Routine Skin Exam Present: dry, pallor, petechiae (bilateral forearms, dorsum of feet. No worsening) - Routine Neurological Exam Present: altered mental status (drowsy, awakens to verbal stimulus.), moving all extremities - Routine Psychiatric Exam Present: unable to assess Oncology Results - Labs CBC & Chem 7: 12/21/17 04:00 12/21/17 04:00 Labs: Short CBC 12/20/17 12/21/17 Range/Units 16:45 04:00 WBC 0.5 L* D (4.5-11.0) T/MM3 Hgb 6.5 L D (13.5-17.5) GM/DL Hct 19.7 L D (41-53) % Plt Count 11 L* 7 L* D (130-400) T/MM3 BMP 12/21/17 04:00 Sodium 154 H Potassium 3.1 L Chloride 112 H Carbon Dioxide 25 BUN 95.0 H* Creatinine 2.3 H D Glucose 179 H Calcium 6.0 L D Liver Function 12/21/17 Range/Units 04:00 Albumin 3.1 L (3.5-5.0) g/dL Assessment and Plan Assessment and Plan: 1. 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 Began chemotherapy with carboplatin and etoposide on 12/16/17. Completed on 12/18/17. Started G-CSF 12/19. Continuing aggressive support. 2. Moderate respiratory distress/respiratory failure due to advanced disease and obstructive pneumonia. Pulmonology following. On high flow O2. In no distress 3. Hypercalcemia due to malignancy. Improving, calcium level 10.0 on 12/17/17, 8.6 on 12/18/17, 7.9 on 12/19/17. 6.8 with albumin of 2.7 on 12/20/17 4. Pancytopenia; neutropenia and thrombocytopenia due to bone metastasis and most likely bone marrow metastases. Platelets on 12/17/17 are 20 K, platelets 23K on 12/18/17. HGB on 12/18/17 is 7.3, WBC 1.9/ANC 1.7, 12/19/17: WBC 2.0, ANC 1.9, PLT 16. 3/08/29 WBC1.3, ANC-1.1, PLT-9 Platelets given. Today, 12/21/17 -WBC 0.5/ANC is 0.4, HGB 6.5, PLT 7. 5. Anemia Hgb 7.2 on 12/19/17. Hemoglobin 6.5 on 12/21/17, one unit PRBC'S to be given today. 6. LDH is starting to decrease 7. Renal insufficiency Creatinine stable at 2.0 on 12/20/17, increased at 2.3 on 12/21/17. 8. Respiratory insufficency. On High flow O2. 9. Unequal pupils with negative CT. Will follow. 10. Hyperuricemia, uric acid today 8.6. Plan Completed chemotherapy, supportive care, antibiotics. Received Etoposide day 3 on 12/18/17. Continue C-GSF for neutropenia starting 12/19 . Follow counts daily ; supportive care with platelets and packed RBCs today, 12/21/17. Now with fluid overload, renal/liver function slightly worse today, 12/21/17. Evidence of hyperuricemia; Rasburicase given. Prognosis guarded. - Time Spent With Patient Total time spent is greater than 50% in coordination of care (as documented) at patient's floor/unit and/or counseling patient: 25 - 35 minutes <Davy Galarza - Last Filed: 12/21/17 22:25> Exam Vital signs: Temperature 97.3 F 12/21/17 14:00 Pulse Rate 102 H 12/21/17 22:00 Respiratory Rate 29 H 12/21/17 22:00 Blood Pressure 131/74 12/21/17 22:00 Pulse Oximetry 100 12/21/17 22:00 Oncology Results - Labs CBC & Chem 7: 12/21/17 19:16 12/21/17 19:16 Labs: Short CBC 12/21/17 12/21/17 12/21/17 Range/Units 04:00 19:16 19:16 WBC 0.5 L* D (4.5-11.0) T/MM3 Hgb 6.5 L D 7.4 L D (13.5-17.5) GM/DL Hct 19.7 L D (41-53) % Plt Count 7 L* D 17 L* D (130-400) T/MM3 BMP 12/21/17 12/21/17 04:00 19:16 Sodium 154 H 153 H Potassium 3.1 L 3.4 L Chloride 112 H 112 H Carbon Dioxide 25 24 BUN 95.0 H* 100.0 H* Creatinine 2.3 H D 2.4 H Glucose 179 H 213 H Calcium 6.0 L D 5.9 L* Liver Function 12/21/17 Range/Units 04:00 Albumin 3.1 L (3.5-5.0) g/dL Assessment and Plan Assessment and Plan: Patient examined.Chart reviewed. Renal function deteriorated. Will continue present therapy. Rasburicase for hyperuricemia. I participated in the development of the plan of care of this patient. - Time Spent With Patient Total time spent is greater than 50% in coordination of care (as documented) at patient's floor/unit and/or counseling patient:
[2017-12-21] MEDS: TBO-FILGRASTIM 480mcg/0.8ml INJECTION SQ SCH (19:02)
[2017-12-21] MEDS: NS FLUSH BAG 500ml IV PRN (19:56)
[2017-12-22] MEDS: ALBUTEROL/IPRATROPIUM 2.5mg-0.5mg/3ml NEB AEROSOL SCH ×6 (00:05→20:02)
[2017-12-22] MEDS: INSULIN ASPART 100unit/ml INJECTION SQ PRN ×2 (00:29→17:17)
[2017-12-22] MEDS: MORPHINE SULFATE 4mg INJECTION IVP PRN ×6 (00:37→17:36)
[2017-12-22] MEDS: METHYLPREDNISOLONE SOD SUCC 125mg/2ml INJECTION IVP SCH ×4 (03:48→21:10)
[2017-12-22] MEDS: ALBUMIN 12.5 GM/50 ML IV SCH ×3 (03:55→19:37)
--- NOTE | 2017-12-22 08:45 | XRay Report ---
Indication: respiratory failure/neuroendocrine cancer PROCEDURE: XR chest 1V: Encounter: Initial Comparison: December 20, 2017 Findings: Left PICC line appears to have been advanced with its tip now projecting over the right ventricle. Continued dense airspace disease in the right lung with lower lung volumes than the prior study. Small bilateral pleural effusions are stable. No pneumothorax. Heart size and mediastinal contours are stable. Impression: 1. Left PICC line tip projects over the right ventricle. Recommend retraction by 4 cm. 2. Worsening hypoinflation with otherwise stable bilateral infiltrates. .
[2017-12-22] MEDS: NICOTINE 21 MG PATCH TD SCH (08:55)
[2017-12-22] MEDS: ALLOPURINOL 100 MG TABLET PO SCH (08:55)
[2017-12-22] MEDS: NYSTATIN 500,000 units/5 ml ORAL LIQUID PO SCH ×4 (08:56→21:19)
[2017-12-22] MEDS: PANTOPRAZOLE 40 MG INJECTION IVP SCH (08:56)
[2017-12-22] MEDS: POLYETHYL GLYCOL 3350 17gm PACKET PO SCH (08:56)
[2017-12-22] MEDS: SALINE 0.65% NASAL SPRAY 44 ML BOTTLE EA NOSTRIL SCH ×4 (08:56→21:22)
[2017-12-22] MEDS: NICOTINE PATCH REMOVAL TD SCH (08:56)
[2017-12-22] MEDS: POTASSIUM CHLORIDE 40 MEQ in D5W 1,000 ML IV SCH (09:59)
[2017-12-22] MEDS: SALINE FLUSH 10ml SYRINGE IV PRN ×6 (11:29→17:37)
--- NOTE | 2017-12-22 11:31 | Progress Note ---
- Date 12/22/17 Subjective: Mr. Baker is more alert today and has been taking fluids per nursing. He advised me that he had things to ask me when I entered the room today and proceeded to talk for the next 15 minutes without desaturating while on high flow nasal cannula. He reports that he is hungry today, that he is breathing more easily, and that he has less abdominal pain although he complains of pain associated with wearing BiPAP and arthritis pain. Nursing reports no fever, improved swallow and that he was able to eat some soft/pured foods this morning. Patient has been pulling at the BiPAP mask intermittently. FiO2 on BiPAP down to 35% overnight. Objective Vital signs: Temperature 97.5 F 12/22/17 04:00 Pulse Rate 100 12/22/17 09:00 Respiratory Rate 18 12/22/17 11:00 Blood Pressure 138/75 12/22/17 06:00 Pulse Oximetry 93 -16 L 12/22/17 11:00 EXAM General-NAD, much more alert than prior days, speech can be understood HEENT-conjugate gaze, sclera anicteric, L pupil slightly > R pupil, conjunctiva minimally injected Lungs-respirations slightly labored but less so than prior days, decreased breath sounds at the bases, slightly coarse after taking sip of for water Cardiac-regular rhythm, S1-S2, low-grade tachycardia Abd-distended, soft, mild generalized tenderness but again improved from prior days, no bowel sounds appreciated Ext-+2 pitting edema bilateral thighs, +1 bilateral feet, +2 edema at the elbows , no edema in the hands Neuro-moving both arms symmetrically/spontaneously, dorsiflexes/plantar flexes ankles to request - Rhythm: Normal Sinus Rhythm, Sinus Tachycardia Height/Weight/BMI: Height 1.7 m Weight 76.8 kg Body Mass Index 21.4 Results - Labs CBC & Chem 7: 12/22/17 03:53 12/22/17 03:53 Labs: S72, L28 Anion gap 17, calcium 5.4, albumin 3.0, magnesium 2.1, phosphorus 6.7 Uric acid 7.8 Bilirubin 1.5, transaminases normal, alkaline phosphatase 186, LDH 3720 Microbiology Results: - Imaging and Cardiology Chest x-ray Status: image reviewed by me (increased hypoventilation compared to prior days, stable infiltrates; PICC needs to be pulled back per radiology report) Assessment and Plan (1) Septic shock Current visit: Yes Status: Acute (2) Pneumonia Current visit: Yes Status: Acute (3) Neuroendocrine carcinoma metastatic to liver Problem details: Lung/liver/bone involvement Current visit: Yes Status: Acute Assessment and Plan: IMPRESSION Sepsis secondary to Right sided pneumonia Septic shock based on lactate of 4.5 (per CMS) Severe sepsis based on 2016 Surviving Sepsis Guidelines Organ dysfunction = MAP <70, hyperbilirubinemia (2.4), thrombocytopenia ( 16) SOFA on admission = 7, presumed baseline of 0 Pneumonia -right upper lobe and right lower lobe-sputum positive for Pseudomonas , Haemophilus, and MSSA; antibiotics completed 12/20 Acute Hypoxia respiratory failure-currently on 16 L; BiPAP initiated 12/18 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 LIEN Pancytopenia (POA) including platelet count of 16, WBC 3.7, and hgb of 8.9 on admission Hyperbilirubinemia, elevated AST and Alk phos, POA Hypercalcemia-Zometa given 12/13--> hypocalcemia Hypoalbuminemia Elevated LDH Elevated CRP and procalcitonin, secondary to acute infection Severe PCM - prealbumin undetectable Thrush Macrocytic anemia Rheumatoid arthritis-Imuran/Enbrel Immunocompromised pt Chronic antritis Tobacco dependency Encephalopathy Sinus tachycardia Dysphasia Acute on chronic Hyponatremia (POA) (baseline 131-134)-resolved Volume overload/anasarca Hypokalemia-12/19/17 Epistaxis, minor-12/20/17, resolved Hypernatremia-12/21/17 Metabolic acidosis-12/21/17 PLAN Completed 14 days of cefepime, Levaquin, and vancomycin on 12/20. Remains on methylprednisolone for respiratory failure. Dependent on high flow oxygen/BiPAP. Chest x-ray/exam/symptoms improving slightly. Chemotherapy 12/16-12/18 for neuroendocrine malignancy. G-CSF initiated 12/19. Neutropenic precautions initiated 12/21. Remains pancytopenic, requires blood products intermittently-will receive platelets again today. Uric acid slightly better today after IV dose of Rasburicase yesterday-redose tomorrow if no further improvement; taking allopurinol. Pupil asymmetry noted 12/20, CT head without acute pathology. Sodium stable/slightly improved with D5 infusion; potassium has corrected. Persistent metabolic acidosis consistent with renal failure. Urine output acceptable off diuretics, continue low-dose albumin due to extensive third spacing of fluids. If creatinine/BUN rise further will require volume replacement. Calcium low however I'm reluctant to treat with calcium given elevated phosphorus-continue to monitor. Mycelex troches discontinued several days ago; nystatin suspension for management of thrush while neutropenic. Given improvement in mental status and patient interest in food will resume speech therapy. PICC line to be withdrawn 4-5 cm based on chest x-ray findings. Case discussed with CCU nursing and oncology. Prognosis remains guarded; critically ill. DVT Prophylaxis: SCD's GI Prophylaxis: Protonix Resuscitation Status: Do Not Resuscitate - Physician Narrative Narrative: Date: 12/22/17 Time: 1117 Hospital Course Summary Disclaimer: The visit summary below is not to be considered part of the above Progress Note. Hospital Course: 12/07/17 Admit, inpatient status, to CCU; Patient is critically ill. Dr. Vivar attending. Septic shock based on CMS and Severe Sepsis based on Surviving Sepsis He received full 30 mL/kg bolus in ED. If unable to keep MAP >65, will need to start norepinephrine, which would indicate shock based on 2016 rec. Initial lactate was 4.5; if lactate is still elevated >4 on recheck, this would also indicate shock based on 2016 recommendations. Blood cultures already drawn. Repeat physical exam done. Repeat procalcitonin in am. Sinus tachycardia has improved after fluid boluses, from 138-105. Right sided pneumonia in an immunocompromised patient with significant smoking history. Cefepime was started in the ED -- will continue with this and add vancomycin and levofloxacin d/t immunocompromised state. Check for strep pneumo and legionella. Check sputum culture. Consult Dr. Mckinney; suspect he may require additional respiratory intervention and with smoking hx likely has underlying COPD. Ev Pan. Ask RT to provide tobacco cessation information. Nicotine patch ordered. Hold RA medications including Enbrel & Imuran. Pancytopenia Suspect d/t sepsis. If no improvement in next few days consider heme consultation. Platelets only 16 on admission. Will give platelet pack x1. Lovenox is contraindicated. SCD for DVT prevention. Macrocytic anemia - check iron studies, folate, vitamin B12. Hyperbilirubinemia Suspect d/t sepsis. Hepatomegaly and RUQ tenderness. He had liver sonogram in Aug, 2017 which was normal. Check INR. Hyponatremia and hypercalcemia Suspect d/t dehydration. Continue IVF and check in am. Advanced directives None. Requests full resuscitation. 12/08/17 Continue with levofloxacin, cefepime and vancomycin for pulmonary coverage. Neb treatments and acapella to continue. Monitor saturations and work of breathing - on 2L currently. Will have speech check swallow secondary to coughing with swallow. Hemoglobin decreased to 6.7 - transfusion initiated. Iron/B12/Folate tests pending. Platelets increased to 30K. Monitor. No Lovenox due to thrombocytopenia. Sodium with slight improvement to 128, but potassium decreased to 3.7. Will change IVF to NS with 20KCl and 20KPhos and decrease rate to 75cc/hr. BP improved. Recheck CMP, Mg, Phos, Procalcitonin, and CBC secondary to resolving septic shock. Continues to need close nursing care and support, continue CCU monitoring. 12/09/17 Continue with levofloxacin, cefepime and vancomycin for pulmonary coverage. Neb treatments and acapella to continue. Monitor saturations and work of breathing - on 2L currently. Start Mycelex lola for thrush. Speech check recommends pureed diet as very difficult to chew foods - may need to upgrade is not liking pureed consistency. Platelets decreased to 20K. Monitor. Give platelet pack. Hemoglobin improved to 8.2 post transfusion yesterday. Sodium improvement to 134, with potassium and phos normal at 4.2 and 4.3 respectively. Continue IVF to NS with 20KCl and 20KPhos but decrease rate to 50cc/hr. BP improved. HR still in 115 range. Start Bladder retraining - possible discontinue Rivas in near future. Start Miralax daily to help bowel function - hold with loose stool. PT/OT consult to help improve strength. Can transfer to medical floor for continuation of care. 12/10/17 The patient became confused last night and was pulling off his oxygen and pulled out his IV. He is more calm at this time but is still confused. With his severity of illness, will transfer back to intensive care when a bed is open. In the meantime will have his nurse stay close to his room and obtain continuous oximetry. Dr. Galarza was called and consulted regarding his pancytopenia. We'll check PTH regarding hypercalcemia. His hypercalcemia is likely worse than it appears since he also has hypoalbuminemia. Hold IV fluids for now. He is 9 L up on fluids. May require diuresis. Continue Rivas catheter for now. Check ammonia level regarding altered mental status. Continue with levofloxacin, cefepime and vancomycin for pneumonia with immunosuppression. Neb treatments and acapella to continue. Monitor saturations and work of breathing - now requiring 4 L PT/OT consult. 12/11/17 The patient had recurrence of elevated lactate yesterday despite continued treatment with triple antibiotics. Heart rate was back up to 130. The patient was given IV fluids. This morning hemoglobin is dropped to 7.9 and platelets are 18,000. Discussed with Dr. Galarza and we will give 1 platelet pack and 1 unit of blood. There is concern for occult malignancy and we will obtain a CT head, chest, abdomen and pelvis all without contrast today. Regarding his elevated calcium, PTH was low. Await results of CAT scans. Regarding Pseudomonas and MSSA pneumonia, continue Levaquin. Stop cefepime. Continue vancomycin for now until blood cultures have returned. 12/12/17 Continue levofloxacin and vancomycin for antimicrobial coverage. Dr Galarza considering initiation of chemotherapy. Discussed with Dr Galarza about patient significantly declined status-concern currently too ill to start chemo. Worry that a large component of patient's acute problems are due to his cancerous process - uncertain if will make much gains without treating cancer, but uncertain how well he could tolerate chemo. Ultimately decided to wait until final path report returns before initiating chemo. Dr Galarza starting treatments to help protect from tumor lysis. IVF change to D5W with 2amps Bicarb at 75cc/hr to alkalinize urine. 12/13/17 More somnolent and weak this afternoon. Oral drive decreased. Continue levofloxacin and vancomycin for antimicrobial coverage. Increase rate of D5W with 2amps Bicarb to 100 cc/hr. Did give Lasix 20mg IV to help minimize edema and increase urine output. Zometa initiated by Dr Galarza to help hypercalcemia. Cautious oral intake secondary to somnolence. Continue pain control. Restart cefepime due to worsening pneumonia. 12/14/17 Dr Samayoa discussed with family - with small cell cancer, only hope for survival is chemotherapy. With patient's significant decline, uncertain if pt could survive chemo. Will continue with antimicrobial therapy. Add Solu-Medrol to try to decrease pulmonary inflammation. Platelet transfusion given due to declining platelets of 15. IVF changed to D5 1/2NS at 75. Lasix given earlier to help motivate fluid. Will repeat dose this evening. 12/15/17 More somnolent today. Speech evaluated patient-recommends NPO (to somnolent and weak to attempt swallow). O2 needs increasing - 6L. Creatine with increase to 1.5, urine output decreasing. Platelets 27 after 2 platelet pack transfusion yesterday. HGB 7.9. Oncology planning chemotherapy this afternoon - high risk for complications, but not likely to survive without treating his cancer. Discussed with about code status. Would recommend DNR as if patient would arrest, feel resuscitative measures would be futile. needs to discuss with family about this. Will continue with antimicrobial therapy and Solu-Medrol. 12/16/17 Oncology planning chemotherapy this afternoon - high risk for complications, but not likely to survive without treating his cancer. Discussed with about code status. Would recommend DNR as if patient would arrest, feel resuscitative measures would be futile. needs to discuss with family about this. Will continue with antimicrobial therapy and Solu-Medrol. 12/17/17 Family has elected to convert to DO NOT RESUSCITATE status. Chemotherapy initiated with etoposide and carboplatin; platelets being given today for count of 20. Ongoing antibiotic therapy-day 11. Persistent dysphasia with minimal oral intake, Dobbhoff to be placed. 12/18/17 Persistent pancytopenia; day 3 chemotherapy, day 12 triple antibiotics for sepsis. Oxygen demand increasing, creatinine climbing-converted to Bumex with albumin to attempt to diurese. Chest x-ray with increasing pleural effusions and pulmonary edema. Unable to place Dobbhoff and volume status precludes TPN. Prognosis guarded at best. 12/19/17 Date 13 antibiotics with cefepime, Levaquin, and vancomycin. Remains on high dose methylprednisolone for respiratory distress. Dependent on high flow oxygen/BiPAP. Chemotherapy 12/16-12/18 for neuroendocrine malignancy. G-CSF initiated 12/19. Remains pancytopenic, 1 unit packed red blood cells today. Will require platelets if any evidence of blood loss. Anticipate platelet transfusion tomorrow. Calcium stable following treatment. Urine output improving with albumin/Bumex; BUN climbing-continue regimen today but may not be able to continue if uremia progresses. IV fluids discontinued; supplement potassium IV due to inability to take oral medications. Repeat chest x-ray in a.m. 12/20/17 Remains pancytopenic, 1 unit packed red blood cells yesterday. Platelet pack today; Afrin nasal spray as needed for minor epistaxis-no ongoing bleeding this morning. Pupil asymmetry not previously present-mental status has not deteriorated compared to yesterday or the prior day and if anything patient may be slightly more alert but with thrombocytopenia will require CT head. Will also image abdomen/pelvis due to persistent/increasing abdominal pain to exclude intra-abdominal bleed. No contrast to be given. Calcium stable following treatment. Urine output improved with albumin/Bumex; however BUN climbing. Continue albumin but will hold Bumex today. Mycelex troches discontinued nursing request, will coated tongue with nystatin suspension for management of thrush will remains on antibiotics or neutropenic. 12/21/17 Completed 14 days of cefepime, Levaquin, and vancomycin on 12/20. Remains on high dose methylprednisolone for respiratory distress. Dependent on high flow oxygen/BiPAP. Chest x-ray/exam slightly improved from pulmonary perspective. Chemotherapy 12/16-12/18 for neuroendocrine malignancy. G-CSF initiated 12/19. Neutropenic precautions initiated 12/21. Remains pancytopenic, requires blood products intermittently-will receive packed red blood cells and platelets today. Pupil asymmetry noted yesterday, CT head without acute pathology. Will discuss MRI brain with Dr. Galarza. Abdominal imaging yesterday compatible with volume overload/anasarca but no evidence of acute intra-abdominal process or hemorrhage. Sodium climbing and potassium down with attempted diuresis-D5 with KCl initiated , electrolytes to be reevaluated later in the day. Diuretics discontinued yesterday, albumin infusions decreased to 12.5 g every 8 hours. 12/22/17 Remains pancytopenic, requires blood products intermittently-will receive platelets again today. Uric acid slightly better today after IV dose of Rasburicase yesterday-redose tomorrow if no further improvement; taking allopurinol. Pupil asymmetry noted 12/20, CT head without acute pathology. Sodium stable/slightly improved with D5 infusion; potassium has corrected. Persistent metabolic acidosis consistent with renal failure. Urine output acceptable off diuretics, continue low-dose albumin due to extensive third spacing of fluids. If creatinine/BUN rise further will require volume replacement. Calcium low however I'm reluctant to treat with calcium given elevated phosphorus-continue to monitor. Mycelex troches discontinued several days ago; nystatin suspension for management of thrush while neutropenic. Given improvement in mental status and patient interest in food will resume speech therapy. PICC line to be withdrawn 4-5 cm based on chest x-ray findings.
--- NOTE | 2017-12-22 11:43 | Progress Note ---
<Sharifa Duarte - Last Filed: 12/22/17 16:32> Oncology Subjective Alone in room. Drowsy/lethargic. Moves head when spoken to, but no verbal response. Exam Vital signs: Temperature 97.5 F 12/22/17 04:00 Pulse Rate 100 12/22/17 09:00 Respiratory Rate 18 12/22/17 11:00 Blood Pressure 138/75 12/22/17 06:00 Pulse Oximetry 93 12/22/17 11:00 - Constitutional no acute distress, somnolent - Routine HEENT Exam Head: Present: normocephalic ENT: Present: mucous membranes moist - Routine Neck Exam Present: supple. Absent: lymphadenopathy - Routine Respiratory Exam Present: rhonchi (bilateral) - Routine Cardiovascular Exam Present: RRR. Absent: no murmur - Routine Abdominal Exam Present: soft, non tender (no grimace or movement w/ examination), distended - Routine Exam Penile: Present: ulceration Scrotal: Present: swelling (scortal wound-no s/sx inflammation) - Routine Extremities Exam Present: edema - Routine Skin Exam Present: dry, pallor, petechiae (unchanged dorsum christopher. feet), wounds (penis/ scrotum) - Routine Neurological Exam Present: altered mental status (somnolent) - Routine Psychiatric Exam Present: unable to assess Oncology Results - Labs CBC & Chem 7: 12/22/17 03:53 12/22/17 03:53 Labs: Short CBC 12/21/17 12/21/17 12/22/17 Range/Units 19:16 19:16 03:53 WBC 0.2 L* D (4.5-11.0) T/MM3 Hgb 7.4 L D 7.4 L (13.5-17.5) GM/DL Hct 22.1 L D (41-53) % Plt Count 17 L* D 11 L* D (130-400) T/MM3 BMP 12/21/17 12/22/17 19:16 03:53 Sodium 153 H 152 H Potassium 3.4 L 3.7 Chloride 112 H 113 H Carbon Dioxide 24 22 BUN 100.0 H* 102.0 H* Creatinine 2.4 H 2.4 H Glucose 213 H 188 H Calcium 5.9 L* 5.4 L* D Liver Function 12/22/17 Range/Units 03:53 Total Bilirubin 1.50 H (0.20-1.30) MG/DL AST 44 (17-59) U/L ALT 34 (21-72) U/L Alkaline Phosphatase 186 H D (38-126) U/L Albumin 3.0 L (3.5-5.0) g/dL - Impressions Date of Exam: 12/22/17 Ordering Provider: Rachel Cortés MD Type of Exam(s): XR chest 1V Reason for Exam(s): check picc placement after repositioning Indication: check picc placement after repositioning PROCEDURE: XR chest 1V: Encounter: Initial Comparison: December 22 at 0550 Findings: Left PICC line has been retracted with tip now projecting over the expected cavoatrial junction. Aeration of the lungs has improved with larger lung volumes and decreased consolidation in both lower lobes. Areas of right hilar and upper lobe mass remain. Small effusions are grossly stable. No pneumothorax. Heart size and mediastinal contours are unchanged. Impression: 1. Repositioning of the left PICC line as above. 2. Improving aeration of the lungs. . Assessment and Plan Assessment and Plan: Assessment 1. 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 Began chemotherapy with carboplatin and etoposide on 12/16/17. Completed on 12/18/17. Started G-CSF 12/19, receiving daily. Continuing aggressive support. 2. Moderate respiratory distress/respiratory failure due to advanced disease and obstructive pneumonia. Pulmonology following. 3. Hypercalcemia due to malignancy. Resolved. Now trending down;continue to follow closely. 4. Pancytopenia; neutropenia and thrombocytopenia due to bone metastasis and most likely bone marrow metastases. Platelets on 12/17/17 are 20 K, platelets 23K on 12/18/17. HGB on 12/18/17 is 7.3, WBC 1.9/ANC 1.7, 12/19/17: WBC 2.0, ANC 1.9, PLT 16. 3/08/29 WBC1.3, ANC-1.1, PLT-9 Platelets given. 12/21/17 -WBC 0.5/ANC is 0.4, HGB 6.5, PLT 7. Received 1 U PRBC's 12/21/17. Today, 12/22/17 WBC 0.2, HGB 7.4, and PLT 11. Will give 1 u Platelets ordered to be given. 5. LDH continues to decrease; today 12/22/17 is 3720 7. Renal insufficiency Creatinine increased at 2.3 on 12/21/17, 12/22/17 is 2.4. 8. Respiratory insufficency. On High flow O2. CXR today, 12/22/17 shows improved aeration. 9. Unequal pupils with negative CT. Will follow. 10. Hyperuricemia, uric acid 12/21/17 is 8.6. Given Rasburicase. Today,12/22/17 , uric acid decreased to 7.8 Plan Continue aggressive supportive care. Follow counts, renal function, liver function, and for tumor lysis syndrome. - Time Spent With Patient Total time spent is greater than 50% in coordination of care (as documented) at patient's floor/unit and/or counseling patient: less than 15 minutes <Lizzette Samayoa - Last Filed: 12/22/17 18:35> Exam Vital signs: Temperature 97.1 F 12/22/17 15:37 Pulse Rate 97 12/22/17 17:00 Respiratory Rate 16 12/22/17 16:00 Blood Pressure 116/74 12/22/17 16:00 Pulse Oximetry 100 12/22/17 16:00 Oncology Results - Labs CBC & Chem 7: 12/22/17 17:30 12/22/17 17:30 Labs: Short CBC 12/21/17 12/21/17 12/22/17 Range/Units 19:16 19:16 03:53 WBC 0.2 L* D (4.5-11.0) T/MM3 Hgb 7.4 L D 7.4 L (13.5-17.5) GM/DL Hct 22.1 L D (41-53) % Plt Count 17 L* D 11 L* D (130-400) T/MM3 12/22/17 Range/Units 17:30 WBC (4.5-11.0) T/MM3 Hgb (13.5-17.5) GM/DL Hct (41-53) % Plt Count 15 L* D (130-400) T/MM3 BMP 12/21/17 12/22/17 12/22/17 19:16 03:53 17:30 Sodium 153 H 152 H 151 H Potassium 3.4 L 3.7 4.2 Chloride 112 H 113 H 112 H Carbon Dioxide 24 22 21 L BUN 100.0 H* 102.0 H* 105.0 H* Creatinine 2.4 H 2.4 H 2.5 H Glucose 213 H 188 H 226 H Calcium 5.9 L* 5.4 L* D 5.3 L* Liver Function 12/22/17 Range/Units 03:53 Total Bilirubin 1.50 H (0.20-1.30) MG/DL AST 44 (17-59) U/L ALT 34 (21-72) U/L Alkaline Phosphatase 186 H D (38-126) U/L Albumin 3.0 L (3.5-5.0) g/dL Assessment and Plan Assessment and Plan: The patient remains critical in ICU. She is sleepy after pain medicine and Benadryl. His lung sounds better. His counts remain very low on G-CSF and transfusions as needed. - Time Spent With Patient Total time spent is greater than 50% in coordination of care (as documented) at patient's floor/unit and/or counseling patient:
[2017-12-22] MEDS ORDERED: NS FLUSH BAG 500ml IV PRN (12:30)
[2017-12-22] MEDS ORDERED: DiphenhydrAMINE 25 MG CAPSULE PO ONE (12:30)
--- NOTE | 2017-12-22 13:57 | XRay Report ---
Indication: check picc placement after repositioning PROCEDURE: XR chest 1V: Encounter: Initial Comparison: December 22 at 0550 Findings: Left PICC line has been retracted with tip now projecting over the expected cavoatrial junction. Aeration of the lungs has improved with larger lung volumes and decreased consolidation in both lower lobes. Areas of right hilar and upper lobe mass remain. Small effusions are grossly stable. No pneumothorax. Heart size and mediastinal contours are unchanged. Impression: 1. Repositioning of the left PICC line as above. 2. Improving aeration of the lungs. .
[2017-12-22] MEDS: DiphenhydrAMINE 50 MG/ML INJECTION IVP PRN ×2 (15:03→15:07)
[2017-12-22] MEDS: LACTULOSE 20 GM/30 ML ORAL LIQUID PO PRN (17:18)
--- NOTE | 2017-12-22 17:22 | Pulmonology Progress Note ---
Subjective Principal diagnosis: pneumonia Interval history: remains on high flow NC very weak. unable to perform IS Exam Vital signs: Temperature 97.1 F 12/22/17 15:37 Pulse Rate 101 H 12/22/17 16:00 Respiratory Rate 16 12/22/17 16:00 Blood Pressure 116/74 12/22/17 16:00 Pulse Oximetry 100 12/22/17 16:00 Inpatient Medications: Generic Name Dose Route Start Last Admin Trade Name Freq PRN Reason Stop Dose Admin Hydrocodone Bitart/Acetaminophen 1 tab 12/07/17 11:21 12/12/17 03:02 Schuyler 5/325 PO 1 tab QID PRN Administration Pain Albuterol/Ipratropium 3 ml 12/07/17 16:00 12/22/17 15:25 Duoneb AEROSOL 3 ml Q4HR RANDALL Administration Allopurinol 100 mg 12/15/17 18:30 12/22/17 08:55 Zyloprim PO 100 mg DAILY RANDALL Administration Benzonatate 100 mg 12/07/17 12:48 Tessalon Perles PO TID PRN Cough Bisacodyl 10 mg 12/07/17 12:53 Dulcolax RECTALLY DAILY PRN Constipation Bumetanide 1 mg 12/18/17 14:30 12/20/17 05:50 Bumex 1 Mg/4 Ml Inj. IVP 1 mg Q8H RANDALL Administration Diphenhydramine HCl 50 mg 12/16/17 14:00 12/22/17 15:07 Benadryl IVP 50 mg PRN PRN Administration For reaction to chemo Fluticasone Propionate 1 spray 12/07/17 11:25 Flonase EA NOSTRIL DAILY PRN PRN orders Hydrocortisone Sodium Succinate 100 mg 12/16/17 14:00 Solu-Cortef IVP PRN PRN For reaction to chemo Potassium Chloride 40 meq/ 1,020 mls @ 100 mls/hr 12/21/17 10:00 12/22/17 09: 59 Dextrose IV 100 mls/hr .[id number] RANDALL Administration Albumin Human 50 mls @ 50 mls/hr 12/21/17 12:00 12/22/17 13:45 Albumin Human 12.5 Gm IV Infused Q8H RANDALL Infusion Insulin Aspart 1 - 5 unit 12/21/17 09:19 12/22/17 17:17 Novolog SQ 2 unit SS PRN Administration Hyperglycemia Protocol Lactulose 10 gm 12/22/17 10:39 12/22/17 17:18 Lactulose PO 10 gm DAILY PRN Administration Constipation Lorazepam 0.25 mg 12/07/17 12:48 12/22/17 11:28 Ativan Inj IVP 0.25 mg Q4H PRN Administration Air hunger/Anxiety Methylprednisolone Sodium Succinate 125 mg 12/16/17 14:00 Solu-Medrol IVP PRN PRN For reaction to chemo Methylprednisolone Sodium Succinate 80 mg 12/21/17 10:24 12/22/17 15:03 Solu-Medrol IVP 80 mg Q6HR RANDALL Administration Morphine Sulfate 2 - 4 mg 12/19/17 10:49 12/22/17 14:16 Morphine Sulfate Inj IVP 4 mg Q2HR PRN Administration Pain Nicotine 21 mg 12/07/17 10:45 12/22/17 08:55 Nicoderm TD 21 mg DAILY RANDALL Administration Nicotine 1 removal 12/08/17 09:00 12/22/17 08:56 Nicotine Patch Removal TD 1 removal DAILY RANDALL Administration Nystatin 5 ml 12/20/17 13:00 12/22/17 17:17 Mycostatin PO 12/30/17 12:59 5 ml QID RANDALL Administration Ondansetron HCl 4 mg 12/07/17 11:21 12/20/17 10:20 Zofran IVP 4 mg Q6H PRN Administration Nausea Oxymetazoline HCl 2 spray 12/20/17 11:00 12/20/17 13:25 Afrin Nasal [place] EA NOSTRIL 2 spray BID PRN Administration Bleeding Pantoprazole Sodium 40 mg 12/17/17 15:30 12/22/17 08:56 Protonix Iv IVP 40 mg DAILY RANDALL Administration Pharmacy Profile Note 5 ml 12/14/17 11:19 12/21/17 18:12 Lidocaine/Maalox/Benadryl Soln PO 5 ml Q4H PRN Administration Mouth pain Polyethylene Glycol 17 gm 12/09/17 11:00 12/22/17 08:56 Miralax PO 17 gm DAILY RANDALL Administration Sodium Chloride 2 spray 12/08/17 10:15 12/22/17 17:17 [place] Nasal Moisturizing [place] EA NOSTRIL 2 spray QID RANDALL Administration Sodium Chloride 500 ml 12/15/17 16:40 12/21/17 19:56 Normal Saline IV 500 ml PRN PRN Administration Sodium Chloride 10 - 80 ml 12/15/17 16:40 12/22/17 16:51 Iv Flush IV 40 ml PRN PRN Administration Flushing Sodium Chloride 500 ml 12/21/17 08:38 Normal Saline IV PRN PRN Sodium Chloride 500 ml 12/22/17 12:30 Normal Saline IV PRN PRN Tbo-Filgrastim 480 mcg 12/19/17 19:00 12/21/17 19:02 Granix SQ 480 mcg Q24H RANDALL Administration Discontinued Medications Generic Name Dose Route Start Last Admin Trade Name Freq PRN Reason Stop Dose Admin Acetaminophen 650 mg 12/11/17 10:30 12/11/17 20:30 Tylenol PO 12/11/17 10:31 325 mg O ONE Administration Albumin Human 25 g 12/17/17 15:07 12/17/17 16:01 Albumin Human IV 12/17/17 15:08 25 g Q8H ONE Administration Albumin Human 25 g 12/18/17 12:00 Albumin Human IV Q8H [facility] Albuterol/Ipratropium 3 ml 12/07/17 11:00 12/07/17 16:44 Duoneb AEROSOL Not Given RTQID [facility] Allopurinol 300 mg 12/12/17 13:45 12/17/17 08:56 Zyloprim PO Not Given DAILY [facility] Alteplase, Recombinant 2 mg 12/21/17 04:32 12/21/17 04:59 Cathflo Activase IV 12/21/17 04:33 2 mg O ONE Administration Bumetanide 1 mg 12/19/17 19:00 12/19/17 19:10 Bumex 1 Mg/4 Ml Inj. IVP 12/19/17 19:01 1 mg O ONE Administration Clotrimazole 10 mg 12/09/17 12:00 12/20/17 10:19 Mycelex Pj MM Not Given 5XD [facility] Diphenhydramine HCl 50 mg 12/09/17 10:36 12/09/17 12:51 Benadryl PO 12/09/17 10:37 50 mg ONCE ONE Administration Diphenhydramine HCl 25 mg 12/11/17 10:29 12/11/17 20:30 Benadryl PO 12/11/17 10:30 25 mg ONCE ONE Administration Diphenhydramine HCl 50 mg 12/21/17 08:38 12/21/17 18:16 Benadryl PO 12/21/17 08:39 Not Given ONCE ONE Diphenhydramine HCl 50 mg 12/22/17 12:30 12/22/17 15:05 Benadryl PO 12/22/17 12:31 Not Given ONCE ONE Furosemide 20 mg 12/11/17 10:29 12/11/17 23:59 Lasix IVP 12/11/17 10:30 20 mg O ONE Administration Furosemide 20 mg 12/12/17 14:06 12/12/17 14:47 Lasix IVP 12/12/17 14:07 20 mg ONCE ONE Administration Furosemide 20 mg 12/13/17 09:29 12/13/17 11:51 Lasix IVP 12/13/17 09:30 20 mg ONCE ONE Administration Furosemide 40 mg 12/14/17 11:19 12/14/17 12:14 Lasix IVP 12/14/17 11:20 40 mg O ONE Administration Furosemide 40 mg 12/15/17 09:29 12/15/17 11:44 Lasix IVP 12/15/17 09:30 40 mg O ONE Administration Furosemide 40 mg 12/15/17 17:41 12/15/17 18:32 Lasix IVP 12/15/17 17:42 40 mg O ONE Administration Furosemide 40 mg 12/16/17 15:13 12/16/17 15:18 Lasix IVP 12/16/17 15:14 40 mg O ONE Administration Furosemide 20 mg 12/17/17 11:44 12/17/17 12:27 Lasix IVP 12/17/17 11:45 20 mg ONCE ONE Administration Furosemide 20 mg 12/17/17 16:00 12/17/17 15:35 Lasix IVP 12/17/17 16:01 20 mg Q8H ONE Administration Furosemide 20 mg 12/21/17 08:38 12/21/17 16:07 Lasix IVP 12/21/17 08:39 20 mg O ONE Administration Cefepime HCl 1 gm/ Sodium 100 mls @ 200 mls/hr 12/07/17 08:43 12/07/17 09:33 Chloride IV 12/07/17 09:12 Infused O ONE Infusion Sodium Chloride 1,000 mls @ 1,000 mls/hr 12/07/17 08:43 12/07/17 10:08 Normal Saline IV 12/07/17 09:42 Infused .Q1H ONE Infusion Sodium Chloride 1,000 mls @ 999.9 mls/hr 12/07/17 09:13 12/07/17 11:38 Normal Saline IV 12/07/17 10:12 Infused .Q1H ONE Infusion Cefepime HCl 1 gm/ Sodium 50 mls @ 100 mls/hr 12/07/17 16:00 12/12/17 00:59 Chloride IV Not Given Q6H RANDALL Levofloxacin/Dextrose 750 mg in 150 mls @ 100 mls/hr 12/07/17 11:21 12/17/17 13:13 Levaquin Premix IV Infused Q24H RANDALL Infusion Sodium Chloride 1,000 mls @ 125 mls/hr 12/07/17 11:21 12/08/17 10:31 Normal Saline IV Infused .Q8H RANDALL Infusion Vancomycin HCl 1,250 mg/ 250 mls @ 200 mls/hr 12/08/17 02:00 12/09/17 18:58 Sodium Chloride IV Not Given Q12H RANDALL Vancomycin HCl 1,750 mg/ 500 mls @ 250 mls/hr 12/07/17 14:00 12/07/17 15:00 Sodium Chloride IV 12/07/17 14:01 Infused O ONE Infusion Sodium Chloride 500 mls @ 500 mls/hr 12/08/17 03:40 12/08/17 03:40 Normal Saline IV 12/08/17 04:39 Not Given .Q1H ONE Sodium Chloride 500 mls @ 500 mls/hr 12/08/17 05:30 12/08/17 05:17 Normal Saline IV 12/08/17 06:30 Not Given .Q1H RANDALL Potassium Chloride 20 meq/ 1,014.5455 mls @ 75 mls/hr 12/08/17 09:45 13:00 Potassium Phosphate 20 meq/ IV 0 mls/hr Sodium Chloride .[id number] RANDALL Infusion Potassium Chloride 20 meq/ 1,014.5455 mls @ 50 mls/hr 12/09/17 11:00 12:05 Potassium Phosphate 20 meq/ IV Infused Sodium Chloride .[id number] RANDALL Infusion Vancomycin HCl 1,750 mg/ 500 mls @ 250 mls/hr 12/09/17 14:00 12/12/17 08:00 Sodium Chloride IV 12/12/17 07:30 Not Given Q12H RANDALL Sodium Chloride 1,000 mls @ 500 mls/hr 12/10/17 16:53 12/10/17 19:30 Normal Saline IV 12/10/17 18:52 Infused .Q2H ONE Infusion Sodium Chloride 1,000 mls @ 75 mls/hr 12/11/17 18:00 12/12/17 14:46 Normal Saline IV Infused .[id number] RANDALL Infusion Sodium Chloride 500 mls @ 250 mls/hr 12/11/17 15:45 12/11/17 18:20 Normal Saline IV 12/11/17 17:44 Infused .Q2H RANDALL Infusion Vancomycin HCl 1,750 mg/ 500 mls @ 250 mls/hr 12/13/17 08:00 Sodium Chloride IV 12/13/17 08:00 Q24H RANDALL Sodium Bicarbonate 100 meq/ 1,100 mls @ 75 mls/hr 12/12/17 14:00 12/13/17 12: 30 Dextrose IV Infused .[id number] RANDALL Infusion Vancomycin HCl 1,250 mg/ 250 mls @ 200 mls/hr 12/14/17 08:00 12/14/17 11:00 Sodium Chloride IV Infused Q48H RANDALL Infusion Zoledronic Acid 3 mg in 75 mls @ 150 mls/hr 12/13/17 12:00 12/13/17 14:59 Zometa IV 12/13/17 12:29 Infused O ONE Infusion Sodium Bicarbonate 100 meq/ 1,100 mls @ 100 mls/hr 12/13/17 12:30 12/16/17 12 :04 Dextrose IV Not Given .Q11H RANDALL Cefepime HCl 1 gm/ Sodium 100 mls @ 200 mls/hr 12/14/17 19:30 12/15/17 01:35 Chloride IV Infused Q6H RANDALL Infusion Cefepime HCl 1 gm/ Sodium 50 mls @ 200 mls/hr 12/15/17 09:00 12/17/17 09:25 Chloride IV Infused Q6HR RANDALL Infusion Vancomycin HCl 1,000 mg/ 250 mls @ 250 mls/hr 12/15/17 12:00 12/16/17 14:11 Sodium Chloride IV 12/17/17 11:59 Infused Q24H RANDALL Infusion Dextrose/Sodium Chloride 1,000 mls @ 75 mls/hr 12/15/17 13:30 12/19/17 14:00 D5-1/2ns IV Infused .[id number] RANDALL Infusion Dexamethasone 10 mg/ Sodium 52.5 mls @ 210 mls/hr 12/16/17 14:00 12/16/17 14: 39 Chloride IV 12/16/17 14:14 Infused O ONE Infusion Carboplatin 377 mg/ Dextrose 287.7 mls @ 250 mls/hr 12/16/17 14:30 12/16/17 16:00 IV 12/16/17 15:39 Infused O ONE Infusion Etoposide 100 mg/ Sodium 505 mls @ 125 mls/hr 12/16/17 15:30 12/16/17 20:00 Chloride IV 12/16/17 19:32 Infused O ONE Infusion Dexamethasone 10 mg/ Sodium 52.5 mls @ 150 mls/hr 12/17/17 14:00 12/17/17 14: 42 Chloride IV 12/17/17 14:20 Infused O ONE Infusion Etoposide 100 mg/ Sodium 505 mls @ 125 mls/hr 12/17/17 14:30 12/17/17 19:00 Chloride IV 12/17/17 18:32 Infused O ONE Infusion Vancomycin HCl 1,000 mg/ 250 mls @ 250 mls/hr 12/18/17 00:01 12/21/17 01:28 Sodium Chloride IV 12/21/17 11:00 Infused Q36H RANDALL Infusion Cefepime HCl 1 gm/ Sodium 50 mls @ 100 mls/hr 12/17/17 17:00 12/18/17 09:01 Chloride IV 100 mls/hr Q8HR RANDALL Administration Levofloxacin/Dextrose 750 mg in 150 mls @ 100 mls/hr 12/19/17 09:00 12/19/17 12:15 Levaquin Premix IV Infused Q48H RANDALL Infusion Dexamethasone 10 mg/ Sodium 52.5 mls @ 150 mls/hr 12/18/17 14:00 12/18/17 14: 38 Chloride IV 12/18/17 14:20 Infused O ONE Infusion Etoposide 100 mg/ Sodium 505 mls @ 125 mls/hr 12/18/17 14:30 12/18/17 14:38 Chloride IV 12/18/17 18:32 125 mls/hr O ONE Administration Albumin Human 100 mls @ 50 mls/hr 12/18/17 12:00 12/21/17 05:19 Albumin Human 25 Gm IV Infused Q8H [facility]ALL Infusion Cefepime HCl 1 gm/ Sodium 50 mls @ 100 mls/hr 12/18/17 21:00 12/21/17 09:18 Chloride IV 12/21/17 11:00 Infused Q12H RANDALL Infusion Potassium Chloride 40 meq/ 520 mls @ 100 mls/hr 12/19/17 13:00 12/19/17 19:00 Dextrose IV 12/19/17 18:11 100 mls/hr .Q5H12M RANDALL Infusion Rasburicase 3 mg/ Sodium 50 mls @ 100 mls/hr 12/21/17 14:30 12/21/17 19:51 Chloride IV 12/21/17 14:59 Infused O ONE Infusion Magnesium Hydroxide 30 ml 12/07/17 12:53 Mom PO DAILY PRN Constipation Methylprednisolone Sodium Succinate 125 mg 12/15/17 15:30 12/21/17 08:50 Solu-Medrol IVP 125 mg Q6HR RANDALL Administration Metoclopramide HCl 5 mg 12/17/17 14:30 12/19/17 10:58 Reglan Not Given Q6H RANDALL Morphine Sulfate 2 mg 12/07/17 12:47 12/14/17 10:38 Morphine Sulfate Inj IVP 2 mg Q2HR PRN Administration Pain Morphine Sulfate 4 mg 12/14/17 11:20 12/19/17 09:54 Morphine Sulfate Inj IVP 4 mg Q2HR PRN Administration Pain Palonosetron 0.25 mg 12/16/17 14:00 12/16/17 14:04 Aloxi IV 12/16/17 14:01 0.25 mg O ONE Administration Pharmacy Consult 1 each 12/11/17 11:34 Pharmacy Consult - Fall Risk XX 12/11/17 11:35 ONE TIME ONE Pharmacy Consult 1 each 12/19/17 17:12 Pharmacy Consult - Fall Risk XX 12/19/17 17:13 ONE TIME ONE Potassium Chloride 20 meq 12/12/17 13:58 12/12/17 14:14 K-Dur 20 Meq Tablet PO 12/12/17 13:59 20 meq O ONE Administration Potassium Chloride 20 meq 12/13/17 12:30 12/19/17 10:58 K-Dur 20 Meq Tablet PO Not Given BIDWM RANDALL Promethazine HCl/Codeine 5 ml 12/07/17 12:49 Phenergan + Codeine PO Q6HR PRN Cough Rasburicase 3 mg 12/21/17 13:35 12/21/17 18:17 Elitek IV 12/21/17 13:36 Not Given O ONE Sodium Chloride 10 - 80 ml 12/07/17 08:43 12/20/17 15:18 Iv Flush IVF 40 ml PRN PRN Administration Flushing Sodium Chloride 500 ml 12/07/17 11:24 12/10/17 16:47 Normal Saline IV 500 ml PRN PRN Administration Sodium Chloride 500 ml 12/09/17 10:36 12/11/17 08:14 Normal Saline IV 500 ml PRN PRN Administration Sodium Chloride 500 ml 12/10/17 16:57 Normal Saline IV PRN PRN Sodium Chloride 500 ml 12/11/17 10:29 Normal Saline IV PRN PRN Sodium Chloride 500 ml 12/13/17 09:27 Normal Saline IV PRN PRN Sodium Chloride 500 ml 12/13/17 10:04 Normal Saline IV PRN PRN Sodium Chloride 500 ml 12/15/17 09:29 Normal Saline IV PRN PRN Spironolactone 12.5 mg 12/13/17 09:30 12/13/17 11:51 Aldactone PO 12/13/17 09:31 12.5 mg ONE TIME ONE Administration Vancomycin HCl 1 each 12/07/17 11:09 Pharmacy Consult - Vancomycin 12/07/17 11:10 O ONE Vancomycin HCl 1 each 12/07/17 11:21 Pharmacy Consult - Vancomycin 12/07/17 11:22 O ONE - Constitutional no acute distress, thin - Routine Neck Exam Present: supple, full ROM - Routine Respiratory Exam Present: decreased breath sounds, rhonchi - Routine Cardiovascular Exam Present: RRR - Routine Abdominal Exam Present: soft. Absent: guarding - Urinary Catheter Management Urethral Cath placed during this visit: yes Urethral indwelling: Yes Insertion date: 12/07/17 Insertion time: 19:45 Results - Laboratory Findings Laboratory: Laboratory Results - last 48 hr 12/19/17 12/21/17 12/21/17 10:55 04:00 04:00 WBC 0.5 L* D RBC 2.07 L Hgb 6.5 L D Hct 19.7 L D MCV 95.2 MCH 31.4 MCHC 33.0 RDW Std Deviation 64.8 H Plt Count 7 L* D MPV 9.6 Neutrophils % (Manual) 76.0 H Lymphocytes % (Manual) 24.0 Neutrophils # (Manual) 0.4 L Lymphocytes # (Manual) 0.1 L Poikilocytosis 2+ Anisocytosis 2+ Tear Drop Cells 1+ Ovalocytes 1+ Helmet Cells 1+ RBC Morph Comment Abnormal Turbidity < 20 Sodium 154 H Potassium 3.1 L Chloride 112 H Carbon Dioxide 25 Anion Gap 17 H BUN 95.0 H* Creatinine 2.3 H D GFR Calculation 30 BUN/Creatinine Ratio 41 H Glucose 179 H Glucometer Calculated Osmolality 328 H Uric Acid 8.6 H Calcium 6.0 L D Phosphorus 6.9 H Magnesium Total Bilirubin Icterus Index < 2 AST ALT Alkaline Phosphatase Lactate Dehydrogenase 4217 H Total Protein Albumin 3.1 L Globulin Albumin/Globulin Ratio Specimen Hemolysis < 15 Blood Type O Positive Antibody Screen Negative Crossmatch (G) See Detail Blood Product Request 12/21/17 12/21/17 12/21/17 11:03 12:44 16:47 WBC RBC Hgb Hct MCV MCH MCHC RDW Std Deviation Plt Count MPV Neutrophils % (Manual) Lymphocytes % (Manual) Neutrophils # (Manual) Lymphocytes # (Manual) Poikilocytosis Anisocytosis Tear Drop Cells Ovalocytes Helmet Cells RBC Morph Comment Turbidity Sodium Potassium Chloride Carbon Dioxide Anion Gap BUN Creatinine GFR Calculation BUN/Creatinine Ratio Glucose Glucometer 222 Calculated Osmolality Uric Acid Calcium Phosphorus Magnesium Total Bilirubin Icterus Index AST ALT Alkaline Phosphatase Lactate Dehydrogenase Total Protein Albumin Globulin Albumin/Globulin Ratio Specimen Hemolysis Blood Type Antibody Screen Crossmatch ([facility]) Blood Product Request 1 unit pc issued 1 unit ppp issued 12/21/17 12/21/17 12/21/17 18:41 19:16 19:16 WBC RBC Hgb 7.4 L D Hct MCV MCH MCHC RDW Std Deviation Plt Count MPV Neutrophils % (Manual) Lymphocytes % (Manual) Neutrophils # (Manual) Lymphocytes # (Manual) Poikilocytosis Anisocytosis Tear Drop Cells Ovalocytes Helmet Cells RBC Morph Comment Turbidity < 20 Sodium 153 H Potassium 3.4 L Chloride 112 H Carbon Dioxide 24 Anion Gap 17 H BUN 100.0 H* Creatinine 2.4 H GFR Calculation 28 BUN/Creatinine Ratio 42 H Glucose 213 H Glucometer 216 Calculated Osmolality 331 H Uric Acid Calcium 5.9 L* Phosphorus Magnesium Total Bilirubin Icterus Index < 2 AST ALT Alkaline Phosphatase Lactate Dehydrogenase Total Protein Albumin Globulin Albumin/Globulin Ratio Specimen Hemolysis < 15 Blood Type Antibody Screen Crossmatch ([facility]) Blood Product Request 12/21/17 12/22/17 12/22/17 19:16 00:26 03:53 WBC 0.2 L* D RBC 2.44 L Hgb 7.4 L Hct 22.1 L D MCV 90.6 MCH 30.3 MCHC 33.5 RDW Std Deviation 67.1 H Plt Count 17 L* D 11 L* D MPV 8.8 L Neutrophils % (Manual) 72.0 H Lymphocytes % (Manual) 28.0 Neutrophils # (Manual) 0.1 L Lymphocytes # (Manual) 0.1 L Poikilocytosis 2+ Anisocytosis 2+ Tear Drop Cells 1+ Ovalocytes 1+ Helmet Cells 1+ RBC Morph Comment Abnormal Turbidity Sodium Potassium Chloride Carbon Dioxide Anion Gap BUN Creatinine GFR Calculation BUN/Creatinine Ratio Glucose Glucometer 214 Calculated Osmolality Uric Acid Calcium Phosphorus Magnesium Total Bilirubin Icterus Index AST ALT Alkaline Phosphatase Lactate Dehydrogenase Total Protein Albumin Globulin Albumin/Globulin Ratio Specimen Hemolysis Blood Type Antibody Screen Crossmatch ([facility]) Blood Product Request 12/22/17 12/22/17 12/22/17 03:53 05:39 12:31 WBC RBC Hgb Hct MCV MCH MCHC RDW Std Deviation Plt Count MPV Neutrophils % (Manual) Lymphocytes % (Manual) Neutrophils # (Manual) Lymphocytes # (Manual) Poikilocytosis Anisocytosis Tear Drop Cells Ovalocytes Helmet Cells RBC Morph Comment Turbidity < 20 Sodium 152 H Potassium 3.7 Chloride 113 H Carbon Dioxide 22 Anion Gap 17 H BUN 102.0 H* Creatinine 2.4 H GFR Calculation 28 BUN/Creatinine Ratio 43 H Glucose 188 H Glucometer 155 Calculated Osmolality 329 H Uric Acid 7.8 Calcium 5.4 L* D Phosphorus 6.7 H Magnesium 2.1 Total Bilirubin 1.50 H Icterus Index < 2 AST 44 ALT 34 Alkaline Phosphatase 186 H D Lactate Dehydrogenase 3720 H Total Protein 5.1 L Albumin 3.0 L Globulin 2.1 L Albumin/Globulin Ratio 1.4 Specimen Hemolysis < 15 Blood Type Antibody Screen Crossmatch ([facility]) Blood Product Request 1 unit ppp issued 12/22/17 16:04 WBC RBC Hgb Hct MCV MCH MCHC RDW Std Deviation Plt Count MPV Neutrophils % (Manual) Lymphocytes % (Manual) Neutrophils # (Manual) Lymphocytes # (Manual) Poikilocytosis Anisocytosis Tear Drop Cells Ovalocytes Helmet Cells RBC Morph Comment Turbidity Sodium Potassium Chloride Carbon Dioxide Anion Gap BUN Creatinine GFR Calculation BUN/Creatinine Ratio Glucose Glucometer 248 Calculated Osmolality Uric Acid Calcium Phosphorus Magnesium Total Bilirubin Icterus Index AST ALT Alkaline Phosphatase Lactate Dehydrogenase Total Protein Albumin Globulin Albumin/Globulin Ratio Specimen Hemolysis Blood Type Antibody Screen Crossmatch ([facility]) Blood Product Request - Diagnostic Findings Chest x-ray: report reviewed, image reviewed Assessment and Plan (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 CXR is mildly improved since starting chemotx prognosis is poor Current Visit: Yes (2) Acute hypoxemic respiratory failure Status: Acute Assessment and plan: continue O2, neb treatments IS as tolerated Current Visit: Yes - Assessment and Plan Acute Hypoxic Respiratory Failure Sepsis RUL pneumonia Right pleural effusion Met Cancer, Bx pending RA/Immune compromised - Imuran/Enbrel at home Pancytopenia - likely 2/2 sepsis, ? cancer Likely COPD Tobaccoism Hyponatremia - improved Dysphagia - alt diet - Time Spent With Patient Total time spent is greater than 50% in coordination of care (as documented) at patient's floor/unit and/or counseling patient: less than 15 minutes
[2017-12-22] MEDS: TBO-FILGRASTIM 480mcg/0.8ml INJECTION SQ SCH (18:27)
[2017-12-22] MEDS: D5-1/2NS 1,000 ML IV SCH (21:19)
[2017-12-23] MEDS: ALBUTEROL/IPRATROPIUM 2.5mg-0.5mg/3ml NEB AEROSOL SCH ×7 (00:02→23:28)
[2017-12-23] MEDS: MORPHINE SULFATE 4mg INJECTION IVP PRN ×4 (00:19→20:44)
[2017-12-23] MEDS: METHYLPREDNISOLONE SOD SUCC 125mg/2ml INJECTION IVP SCH ×4 (04:15→20:50)
[2017-12-23] MEDS: ALBUMIN 12.5 GM/50 ML IV SCH (04:17)
[2017-12-23] MEDS: INSULIN ASPART 100unit/ml INJECTION SQ PRN ×4 (05:08→23:28)
[2017-12-23] MEDS: POTASSIUM CHLORIDE 40 MEQ in D5W 1,000 ML IV SCH (07:07)
[2017-12-23] MEDS: D5-1/2NS 1,000 ML IV SCH (08:20)
[2017-12-23] MEDS: PANTOPRAZOLE 40 MG INJECTION IVP SCH (08:22)
[2017-12-23] MEDS: POLYETHYL GLYCOL 3350 17gm PACKET PO SCH (08:22)
[2017-12-23] MEDS: NICOTINE 21 MG PATCH TD SCH (08:22)
[2017-12-23] MEDS: LACTULOSE 20 GM/30 ML ORAL LIQUID PO PRN (08:22)
[2017-12-23] MEDS: NYSTATIN 500,000 units/5 ml ORAL LIQUID PO SCH ×4 (08:23→20:51)
[2017-12-23] MEDS: NICOTINE PATCH REMOVAL TD SCH (08:23)
[2017-12-23] MEDS: SALINE 0.65% NASAL SPRAY 44 ML BOTTLE EA NOSTRIL SCH ×4 (08:23→20:52)
[2017-12-23] MEDS: ALLOPURINOL 100 MG TABLET PO SCH (08:26)
[2017-12-23] MEDS ORDERED: NS FLUSH BAG 500ml IV PRN (09:30)
--- NOTE | 2017-12-23 09:31 | Progress Note ---
- Date 12/23/17 Subjective: The patient was seen earlier this morning accompanied by his nurse. He stated he feels rough. He mostly complains of feeling short of breath, having some pain in his mouth, and nausea. He is intermittently confused and occasionally takes off his oxygen. His nurse stated he slept fairly well last night on BiPAP. His appetite is improving a little bit. He was able to eat pudding for breakfast. He has a Rivas catheter in place with good urine output. He has not had a bowel movement reported but has not eaten much during this hospital stay. Objective Vital signs: Temperature 97.2 F 12/23/17 00:00 Pulse Rate 105 H 12/23/17 08:39 Respiratory Rate 25 H 12/23/17 07:09 Blood Pressure 144/91 H 12/23/17 06:00 Pulse Oximetry 95 12/23/17 07:09 Rhythm: Normal Sinus Rhythm, Sinus Tachycardia Height/Weight/BMI: Height 1.7 m Weight 81.8 kg Body Mass Index 21.4 Comments: Weight today is 81.8 kg. That is up from 61.1 on admission and 76.8 kg yesterday. Uncertain if bed weights are accurate, but weight is definitely up from admission. Cumulative I&O is 25 L positive Urine output yesterday is 892 mL's. Afebrile, Heart rate is 111, blood pressure 122/81 (he has not had any hypotension), O2 sat 97% on 15 L high flow nasal cannula, respirations 19 GEN-alert, mildly confused, no acute distress, appears chronically ill HEENT-sclera anicteric, oropharynx reveals some dark blood in the posterior pharynx NECK-supple CV-borderline tachycardic rate with irregular rhythm CHEST-coarse breath sounds bilaterally ABD-soft, moderately distended, positive bowel sounds, mild tympany, patient is passing gas without difficulties -Rivas in place with good urine output. EXT-significant for 4+ edema in his legs and 2+ edema in his arms NEURO-he has significant generalized weakness SKIN-warm and dry Results - Labs CBC & Chem 7: 12/23/17 04:12 12/23/17 04:12 Labs: Laboratory Tests 12/23/17 04:12 Uric Acid 7.1 Calcium 5.3 L* Phosphorus 6.0 H Lactate Dehydrogenase 3493 H C-Reactive Protein 58.6 H Albumin 3.1 L Microbiology Results: Microbiology 12/10/17 15:57 Peripheral/Iv Start Blood Culture - Final No Growth After 5 Days 12/10/17 16:00 Peripheral/Iv Start Blood Culture - Final No Growth After 5 Days 12/07/17 12:45 Sputum, Expectorated Gram Stain - Final 12/07/17 12:45 Sputum, Expectorated Sputum Culture - Final Pseudomonas aeruginosa Haemophilus influenzae Staphylococcus aureus Normal Resp Pallavi incl. Yeast 12/07/17 18:13 Urine Legionella Urinary Antigen - Final 12/07/17 18:13 Urine Streptococcus pneumoniae Antigen (M - Final Assessment and Plan (1) Septic shock Current visit: Yes Status: Acute (2) Pneumonia Current visit: Yes Status: Acute (3) Neuroendocrine carcinoma metastatic to liver Problem details: Lung/liver/bone involvement Current visit: Yes Status: Acute Assessment and Plan: IMPRESSION Sepsis secondary to Right sided pneumonia Septic shock based on lactate of 4.5 (per CMS) Severe sepsis based on 2016 Surviving Sepsis Guidelines Organ dysfunction = MAP <70, hyperbilirubinemia (2.4), thrombocytopenia ( 16) SOFA on admission = 7, presumed baseline of 0 Pneumonia -right upper lobe and right lower lobe-sputum positive for Pseudomonas , Haemophilus, and MSSA; antibiotics completed 12/20 Acute Hypoxia respiratory failure-currently on 15 L; BiPAP initiated 12/18 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 LIEN-with good urine output Pancytopenia (POA) including platelet count of 16, WBC 3.7, and hgb of 8.9 on admission Hyperbilirubinemia, elevated AST and Alk phos, POA Hypercalcemia-Zometa given 12/13--> hypocalcemia Hypoalbuminemia-improved with albumin 3.1 Elevated LDH Elevated CRP and procalcitonin, secondary to acute infection Severe PCM - prealbumin undetectable Thrush Macrocytic anemia Rheumatoid arthritis-Imuran/Enbrel Immunocompromised pt Chronic antritis Tobacco dependency Encephalopathy Sinus tachycardia Dysphasia Acute on chronic Hyponatremia (POA) (baseline 131-134)-resolved Volume overload/anasarca Hypokalemia-12/19/17 Epistaxis, minor-12/20/17, resolved Hypernatremia-12/21/17 Metabolic acidosis-12/21/17 PLAN Completed 14 days of cefepime, Levaquin, and vancomycin on 12/20. Remains on methylprednisolone for respiratory failure. Dependent on high flow oxygen/BiPAP. Chemotherapy 12/16-12/18 for neuroendocrine malignancy. G-CSF initiated 12/19. Neutropenic precautions initiated 12/21. Remains pancytopenic, requires blood products intermittently-receive platelets yesterday, will replace again today. Uric acid slightly better today after IV dose of Rasburicase-taking allopurinol. Pupil asymmetry noted 12/20, CT head without acute pathology. Discussed acute kidney injury with anasarca with nephrology. Recommended D5W to help with hypernatremia. Recommended discontinuation of albumin at this time now that albumin is over 3. Could repeat IV albumin if albumin level drops below 3. Would give intermittent IV Bumex if needed for worsening urine output or hypoxia. Will obtain chest x-ray tomorrow. Discussed hypocalcemia with nephrology as well, will give Tums with meals and check a vitamin D level. If vitamin D level is low, start vitamin D. We'll still need to monitor closely for recurrence of hypercalcemia. If patient becomes symptomatic from hypocalcemia, can give IV calcium. Mycelex troches discontinued several days ago; nystatin suspension for management of thrush while neutropenic. Encourage oral nutrition, speech therapy has been consulted. Discussed thrombocytopenia and dark blood in posterior pharynx with Dr. Galarza, he recommends platelet transfusion today. Case discussed with CCU nursing, nephrology and oncology. The patient is critically ill. Greater than 45 minutes of critical care time spent seeing and evaluating the patient, determining care plan and discussing with consultants. Prognosis remains guarded. DVT Prophylaxis: SCD's GI Prophylaxis: Protonix Resuscitation Status: Do Not Resuscitate - Time spent with patient Time with patient PN: 35 minutes - Physician Narrative Narrative: Date: 12/23/17 Time: 09 Hospital Course Summary Disclaimer: The visit summary below is not to be considered part of the above Progress Note. Hospital Course: 12/07/17 Admit, inpatient status, to CCU; Patient is critically ill. Dr. Vivar attending. Septic shock based on CMS and Severe Sepsis based on Surviving Sepsis He received full 30 mL/kg bolus in ED. If unable to keep MAP >65, will need to start norepinephrine, which would indicate shock based on 2016 rec. Initial lactate was 4.5; if lactate is still elevated >4 on recheck, this would also indicate shock based on 2016 recommendations. Blood cultures already drawn. Repeat physical exam done. Repeat procalcitonin in am. Sinus tachycardia has improved after fluid boluses, from 138-105. Right sided pneumonia in an immunocompromised patient with significant smoking history. Cefepime was started in the ED -- will continue with this and add vancomycin and levofloxacin d/t immunocompromised state. Check for strep pneumo and legionella. Check sputum culture. Consult Dr. Mckinney; suspect he may require additional respiratory intervention and with smoking hx likely has underlying COPD. Acapella, DuoNeb. Ask RT to provide tobacco cessation information. Nicotine patch ordered. Hold RA medications including Enbrel & Imuran. Pancytopenia Suspect d/t sepsis. If no improvement in next few days consider heme consultation. Platelets only 16 on admission. Will give platelet pack x1. Lovenox is contraindicated. SCD for DVT prevention. Macrocytic anemia - check iron studies, folate, vitamin B12. Hyperbilirubinemia Suspect d/t sepsis. Hepatomegaly and RUQ tenderness. He had liver sonogram in Aug, 2017 which was normal. Check INR. Hyponatremia and hypercalcemia Suspect d/t dehydration. Continue IVF and check in am. Advanced directives None. Requests full resuscitation. 12/08/17 Continue with levofloxacin, cefepime and vancomycin for pulmonary coverage. Neb treatments and acapella to continue. Monitor saturations and work of breathing - on 2L currently. Will have speech check swallow secondary to coughing with swallow. Hemoglobin decreased to 6.7 - transfusion initiated. Iron/B12/Folate tests pending. Platelets increased to 30K. Monitor. No Lovenox due to thrombocytopenia. Sodium with slight improvement to 128, but potassium decreased to 3.7. Will change IVF to NS with 20KCl and 20KPhos and decrease rate to 75cc/hr. BP improved. Recheck CMP, Mg, Phos, Procalcitonin, and CBC secondary to resolving septic shock. Continues to need close nursing care and support, continue CCU monitoring. 12/09/17 Continue with levofloxacin, cefepime and vancomycin for pulmonary coverage. Neb treatments and acapella to continue. Monitor saturations and work of breathing - on 2L currently. Start Mycelex lola for thrush. Speech check recommends pureed diet as very difficult to chew foods - may need to upgrade is not liking pureed consistency. Platelets decreased to 20K. Monitor. Give platelet pack. Hemoglobin improved to 8.2 post transfusion yesterday. Sodium improvement to 134, with potassium and phos normal at 4.2 and 4.3 respectively. Continue IVF to NS with 20KCl and 20KPhos but decrease rate to 50cc/hr. BP improved. HR still in 115 range. Start Bladder retraining - possible discontinue Rivas in near future. Start Miralax daily to help bowel function - hold with loose stool. PT/OT consult to help improve strength. Can transfer to medical floor for continuation of care. 12/10/17 The patient became confused last night and was pulling off his oxygen and pulled out his IV. He is more calm at this time but is still confused. With his severity of illness, will transfer back to intensive care when a bed is open. In the meantime will have his nurse stay close to his room and obtain continuous oximetry. Dr. Galarza was called and consulted regarding his pancytopenia. We'll check PTH regarding hypercalcemia. His hypercalcemia is likely worse than it appears since he also has hypoalbuminemia. Hold IV fluids for now. He is 9 L up on fluids. May require diuresis. Continue Rivas catheter for now. Check ammonia level regarding altered mental status. Continue with levofloxacin, cefepime and vancomycin for pneumonia with immunosuppression. Neb treatments and acapella to continue. Monitor saturations and work of breathing - now requiring 4 L PT/OT consult. 12/11/17 The patient had recurrence of elevated lactate yesterday despite continued treatment with triple antibiotics. Heart rate was back up to 130. The patient was given IV fluids. This morning hemoglobin is dropped to 7.9 and platelets are 18,000. Discussed with Dr. Galarza and we will give 1 platelet pack and 1 unit of blood. There is concern for occult malignancy and we will obtain a CT head, chest, abdomen and pelvis all without contrast today. Regarding his elevated calcium, PTH was low. Await results of CAT scans. Regarding Pseudomonas and MSSA pneumonia, continue Levaquin. Stop cefepime. Continue vancomycin for now until blood cultures have returned. 12/12/17 Continue levofloxacin and vancomycin for antimicrobial coverage. Dr Galarza considering initiation of chemotherapy. Discussed with Dr Galarza about patient significantly declined status-concern currently too ill to start chemo. Worry that a large component of patient's acute problems are due to his cancerous process - uncertain if will make much gains without treating cancer, but uncertain how well he could tolerate chemo. Ultimately decided to wait until final path report returns before initiating chemo. Dr Galarza starting treatments to help protect from tumor lysis. IVF change to D5W with 2amps Bicarb at 75cc/hr to alkalinize urine. 12/13/17 More somnolent and weak this afternoon. Oral drive decreased. Continue levofloxacin and vancomycin for antimicrobial coverage. Increase rate of D5W with 2amps Bicarb to 100 cc/hr. Did give Lasix 20mg IV to help minimize edema and increase urine output. Zometa initiated by Dr Galarza to help hypercalcemia. Cautious oral intake secondary to somnolence. Continue pain control. Restart cefepime due to worsening pneumonia. 12/14/17 Dr Samayoa discussed with family - with small cell cancer, only hope for survival is chemotherapy. With patient's significant decline, uncertain if pt could survive chemo. Will continue with antimicrobial therapy. Add Solu-Medrol to try to decrease pulmonary inflammation. Platelet transfusion given due to declining platelets of 15. IVF changed to D5 1/2NS at 75. Lasix given earlier to help motivate fluid. Will repeat dose this evening. 12/15/17 More somnolent today. Speech evaluated patient-recommends NPO (to somnolent and weak to attempt swallow). O2 needs increasing - 6L. Creatine with increase to 1.5, urine output decreasing. Platelets 27 after 2 platelet pack transfusion yesterday. HGB 7.9. Oncology planning chemotherapy this afternoon - high risk for complications, but not likely to survive without treating his cancer. Discussed with about code status. Would recommend DNR as if patient would arrest, feel resuscitative measures would be futile. needs to discuss with family about this. Will continue with antimicrobial therapy and Solu-Medrol. 12/16/17 Oncology planning chemotherapy this afternoon - high risk for complications, but not likely to survive without treating his cancer. Discussed with about code status. Would recommend DNR as if patient would arrest, feel resuscitative measures would be futile. needs to discuss with family about this. Will continue with antimicrobial therapy and Solu-Medrol. 12/17/17 Family has elected to convert to DO NOT RESUSCITATE status. Chemotherapy initiated with etoposide and carboplatin; platelets being given today for count of 20. Ongoing antibiotic therapy-day 11. Persistent dysphasia with minimal oral intake, Dobbhoff to be placed. 12/18/17 Persistent pancytopenia; day 3 chemotherapy, day 12 triple antibiotics for sepsis. Oxygen demand increasing, creatinine climbing-converted to Bumex with albumin to attempt to diurese. Chest x-ray with increasing pleural effusions and pulmonary edema. Unable to place Dobbhoff and volume status precludes TPN. Prognosis guarded at best. 12/19/17 Date 13 antibiotics with cefepime, Levaquin, and vancomycin. Remains on high dose methylprednisolone for respiratory distress. Dependent on high flow oxygen/BiPAP. Chemotherapy 12/16-12/18 for neuroendocrine malignancy. G-CSF initiated 12/19. Remains pancytopenic, 1 unit packed red blood cells today. Will require platelets if any evidence of blood loss. Anticipate platelet transfusion tomorrow. Calcium stable following treatment. Urine output improving with albumin/Bumex; BUN climbing-continue regimen today but may not be able to continue if uremia progresses. IV fluids discontinued; supplement potassium IV due to inability to take oral medications. Repeat chest x-ray in a.m. 12/20/17 Remains pancytopenic, 1 unit packed red blood cells yesterday. Platelet pack today; Afrin nasal spray as needed for minor epistaxis-no ongoing bleeding this morning. Pupil asymmetry not previously present-mental status has not deteriorated compared to yesterday or the prior day and if anything patient may be slightly more alert but with thrombocytopenia will require CT head. Will also image abdomen/pelvis due to persistent/increasing abdominal pain to exclude intra-abdominal bleed. No contrast to be given. Calcium stable following treatment. Urine output improved with albumin/Bumex; however BUN climbing. Continue albumin but will hold Bumex today. Mycelex troches discontinued nursing request, will coated tongue with nystatin suspension for management of thrush will remains on antibiotics or neutropenic. 12/21/17 Completed 14 days of cefepime, Levaquin, and vancomycin on 12/20. Remains on high dose methylprednisolone for respiratory distress. Dependent on high flow oxygen/BiPAP. Chest x-ray/exam slightly improved from pulmonary perspective. Chemotherapy 12/16-12/18 for neuroendocrine malignancy. G-CSF initiated 12/19. Neutropenic precautions initiated 12/21. Remains pancytopenic, requires blood products intermittently-will receive packed red blood cells and platelets today. Pupil asymmetry noted yesterday, CT head without acute pathology. Will discuss MRI brain with Dr. Galarza. Abdominal imaging yesterday compatible with volume overload/anasarca but no evidence of acute intra-abdominal process or hemorrhage. Sodium climbing and potassium down with attempted diuresis-D5 with KCl initiated , electrolytes to be reevaluated later in the day. Diuretics discontinued yesterday, albumin infusions decreased to 12.5 g every 8 hours. 12/22/17 Remains pancytopenic, requires blood products intermittently-will receive platelets again today. Uric acid slightly better today after IV dose of Rasburicase yesterday-redose tomorrow if no further improvement; taking allopurinol. Pupil asymmetry noted 12/20, CT head without acute pathology. Sodium stable/slightly improved with D5 infusion; potassium has corrected. Persistent metabolic acidosis consistent with renal failure. Urine output acceptable off diuretics, continue low-dose albumin due to extensive third spacing of fluids. If creatinine/BUN rise further will require volume replacement. Calcium low however I'm reluctant to treat with calcium given elevated phosphorus-continue to monitor. Mycelex troches discontinued several days ago; nystatin suspension for management of thrush while neutropenic. Given improvement in mental status and patient interest in food will resume speech therapy. PICC line to be withdrawn 4-5 cm based on chest x-ray findings.
[2017-12-23] MEDS: ONDANSETRON 4 MG/2 ML INJECTION IVP PRN ×2 (10:35→16:20)
[2017-12-23 10:45] VITALS: BMI 28.2
--- NOTE | 2017-12-23 11:19 | Pulmonology Progress Note ---
Subjective Principal diagnosis: pneumonia Interval history: Pt resting in bed, wakes to voice. + cough with some sputum, stable SOB. Still very weak. Exam Vital signs: Temperature 98.5 F 12/23/17 08:00 Pulse Rate 102 H 12/23/17 09:01 Respiratory Rate 10 12/23/17 09:01 Blood Pressure 133/95 H 12/23/17 09:01 Pulse Oximetry 98 12/23/17 09:01 Inpatient Medications: Generic Name Dose Route Start Last Admin Trade Name Freq PRN Reason Stop Dose Admin Hydrocodone Bitart/Acetaminophen 1 tab 12/07/17 11:21 12/12/17 03:02 [place] 5/325 PO 1 tab QID PRN Administration Pain Albuterol/Ipratropium 3 ml 12/07/17 16:00 12/23/17 04:04 Duoneb AEROSOL 3 ml Q4HR RANDALL Administration Allopurinol 100 mg 12/15/17 18:30 12/23/17 08:26 Zyloprim PO 100 mg DAILY RANDALL Administration Benzonatate 100 mg 12/07/17 12:48 Tessalon Perles PO TID PRN Cough Bisacodyl 10 mg 12/07/17 12:53 Dulcolax RECTALLY DAILY PRN Constipation Bumetanide 1 mg 12/18/17 14:30 12/20/17 05:50 Bumex 1 Mg/4 Ml Inj. IVP 1 mg Q8H RANDALL Administration Calcium Carbonate 1,000 mg 12/23/17 12:00 Tums PO WM RANDALL Diphenhydramine HCl 50 mg 12/16/17 14:00 12/22/17 15:07 Benadryl IVP 50 mg PRN PRN Administration For reaction to chemo Fluticasone Propionate 1 spray 12/07/17 11:25 Flonase EA NOSTRIL DAILY PRN PRN orders Hydrocortisone Sodium Succinate 100 mg 12/16/17 14:00 Solu-Cortef IVP PRN PRN For reaction to chemo Dextrose 1,000 mls @ 75 mls/hr 12/23/17 11:15 Dextrose 5% In Water IV .[id number] [facility] Insulin Aspart 1 - 5 unit 12/21/17 09:19 12/23/17 10:35 Novolog SQ 2 unit SS PRN Administration Hyperglycemia Protocol Lactulose 10 gm 12/22/17 10:39 12/23/17 08:22 Lactulose PO 10 gm DAILY PRN Administration Constipation Lorazepam 0.25 mg 12/07/17 12:48 12/22/17 11:28 Ativan Inj IVP 0.25 mg Q4H PRN Administration Air hunger/Anxiety Methylprednisolone Sodium Succinate 125 mg 12/16/17 14:00 Solu-Medrol IVP PRN PRN For reaction to chemo Methylprednisolone Sodium Succinate 80 mg 12/21/17 10:24 12/23/17 08:22 Solu-Medrol IVP 80 mg Q6HR RANDALL Administration Morphine Sulfate 2 - 4 mg 12/19/17 10:49 12/23/17 10:35 Morphine Sulfate Inj IVP 4 mg Q2HR PRN Administration Pain Nicotine 21 mg 12/07/17 10:45 12/23/17 08:22 Nicoderm TD 21 mg DAILY RANDALL Administration Nicotine 1 removal 12/08/17 09:00 12/23/17 08:23 Nicotine Patch Removal TD 1 removal DAILY RANDALL Administration Nystatin 5 ml 12/20/17 13:00 12/23/17 08:23 Mycostatin PO 12/30/17 12:59 5 ml QID RANDALL Administration Ondansetron HCl 4 mg 12/07/17 11:21 12/23/17 10:35 Zofran IVP 4 mg Q6H PRN Administration Nausea Oxymetazoline HCl 2 spray 12/20/17 11:00 12/20/17 13:25 Afrin Nasal Alpha EA NOSTRIL 2 spray BID PRN Administration Bleeding Pantoprazole Sodium 40 mg 12/17/17 15:30 12/23/17 08:22 Protonix Iv IVP 40 mg DAILY RANDALL Administration Pharmacy Profile Note 5 ml 12/14/17 11:19 12/21/17 18:12 Lidocaine/Maalox/Benadryl Soln PO 5 ml Q4H PRN Administration Mouth pain Polyethylene Glycol 17 gm 12/09/17 11:00 12/23/17 08:22 Miralax PO 17 gm DAILY RANDALL Administration Sodium Chloride 2 spray 12/08/17 10:15 12/23/17 08:23 [place] Nasal Moisturizing Alpha EA NOSTRIL 2 spray QID RANDALL Administration Sodium Chloride 500 ml 12/15/17 16:40 12/21/17 19:56 Normal Saline IV 500 ml PRN PRN Administration Sodium Chloride 10 - 80 ml 12/15/17 16:40 12/22/17 17:37 Iv Flush IV 10 ml PRN PRN Administration Flushing Sodium Chloride 500 ml 12/21/17 08:38 Normal Saline IV PRN PRN Sodium Chloride 500 ml 12/22/17 12:30 Normal Saline IV PRN PRN Sodium Chloride 500 ml 12/23/17 09:30 Normal Saline IV PRN PRN Tbo-Filgrastim 480 mcg 12/19/17 19:00 12/22/17 18:27 Granix SQ 480 mcg Q24H RANDALL Administration Discontinued Medications Generic Name Dose Route Start Last Admin Trade Name Freq PRN Reason Stop Dose Admin Acetaminophen 650 mg 12/11/17 10:30 12/11/17 20:30 Tylenol PO 12/11/17 10:31 325 mg O ONE Administration Albumin Human 25 g 12/17/17 15:07 12/17/17 16:01 Albumin Human IV 12/17/17 15:08 25 g Q8H ONE Administration Albumin Human 25 g 12/18/17 12:00 Albumin Human IV Q8H [facility] Albuterol/Ipratropium 3 ml 12/07/17 11:00 12/07/17 16:44 Duoneb AEROSOL Not Given RTQID [facility] Allopurinol 300 mg 12/12/17 13:45 12/17/17 08:56 Zyloprim PO Not Given DAILY [facility] Alteplase, Recombinant 2 mg 12/21/17 04:32 12/21/17 04:59 Cathflo Activase IV 12/21/17 04:33 2 mg O ONE Administration Bumetanide 1 mg 12/19/17 19:00 12/19/17 19:10 Bumex 1 Mg/4 Ml Inj. IVP 12/19/17 19:01 1 mg O ONE Administration Clotrimazole 10 mg 12/09/17 12:00 12/20/17 10:19 Mycelex Jp MM Not Given 5XD [facility] Diphenhydramine HCl 50 mg 12/09/17 10:36 12/09/17 12:51 Benadryl PO 12/09/17 10:37 50 mg ONCE ONE Administration Diphenhydramine HCl 25 mg 12/11/17 10:29 12/11/17 20:30 Benadryl PO 12/11/17 10:30 25 mg ONCE ONE Administration Diphenhydramine HCl 50 mg 12/21/17 08:38 12/21/17 18:16 Benadryl PO 12/21/17 08:39 Not Given ONCE ONE Diphenhydramine HCl 50 mg 12/22/17 12:30 12/22/17 15:05 Benadryl PO 12/22/17 12:31 Not Given ONCE ONE Furosemide 20 mg 12/11/17 10:29 12/11/17 23:59 Lasix IVP 12/11/17 10:30 20 mg O ONE Administration Furosemide 20 mg 12/12/17 14:06 12/12/17 14:47 Lasix IVP 12/12/17 14:07 20 mg ONCE ONE Administration Furosemide 20 mg 12/13/17 09:29 12/13/17 11:51 Lasix IVP 12/13/17 09:30 20 mg ONCE ONE Administration Furosemide 40 mg 12/14/17 11:19 12/14/17 12:14 Lasix IVP 12/14/17 11:20 40 mg O ONE Administration Furosemide 40 mg 12/15/17 09:29 12/15/17 11:44 Lasix IVP 12/15/17 09:30 40 mg O ONE Administration Furosemide 40 mg 12/15/17 17:41 12/15/17 18:32 Lasix IVP 12/15/17 17:42 40 mg O ONE Administration Furosemide 40 mg 12/16/17 15:13 12/16/17 15:18 Lasix IVP 12/16/17 15:14 40 mg O ONE Administration Furosemide 20 mg 12/17/17 11:44 12/17/17 12:27 Lasix IVP 12/17/17 11:45 20 mg ONCE ONE Administration Furosemide 20 mg 12/17/17 16:00 12/17/17 15:35 Lasix IVP 12/17/17 16:01 20 mg Q8H ONE Administration Furosemide 20 mg 12/21/17 08:38 12/21/17 16:07 Lasix IVP 12/21/17 08:39 20 mg O ONE Administration Cefepime HCl 1 gm/ Sodium 100 mls @ 200 mls/hr 12/07/17 08:43 12/07/17 09:33 Chloride IV 12/07/17 09:12 Infused O ONE Infusion Sodium Chloride 1,000 mls @ 1,000 mls/hr 12/07/17 08:43 12/07/17 10:08 Normal Saline IV 12/07/17 09:42 Infused .Q1H ONE Infusion Sodium Chloride 1,000 mls @ 999.9 mls/hr 12/07/17 09:13 12/07/17 11:38 Normal Saline IV 12/07/17 10:12 Infused .Q1H ONE Infusion Cefepime HCl 1 gm/ Sodium 50 mls @ 100 mls/hr 12/07/17 16:00 12/12/17 00:59 Chloride IV Not Given Q6H RANDALL Levofloxacin/Dextrose 750 mg in 150 mls @ 100 mls/hr 12/07/17 11:21 12/17/17 13:13 Levaquin Premix IV Infused Q24H RANDALL Infusion Sodium Chloride 1,000 mls @ 125 mls/hr 12/07/17 11:21 12/08/17 10:31 Normal Saline IV Infused .Q8H RANDALL Infusion Vancomycin HCl 1,250 mg/ 250 mls @ 200 mls/hr 12/08/17 02:00 12/09/17 18:58 Sodium Chloride IV Not Given Q12H RANDALL Vancomycin HCl 1,750 mg/ 500 mls @ 250 mls/hr 12/07/17 14:00 12/07/17 15:00 Sodium Chloride IV 12/07/17 14:01 Infused O ONE Infusion Sodium Chloride 500 mls @ 500 mls/hr 12/08/17 03:40 12/08/17 03:40 Normal Saline IV 12/08/17 04:39 Not Given .Q1H ONE Sodium Chloride 500 mls @ 500 mls/hr 12/08/17 05:30 12/08/17 05:17 Normal Saline IV 12/08/17 06:30 Not Given .Q1H RANDALL Potassium Chloride 20 meq/ 1,014.5455 mls @ 75 mls/hr 12/08/17 09:45 13:00 Potassium Phosphate 20 meq/ IV 0 mls/hr Sodium Chloride .[id number] RANDALL Infusion Potassium Chloride 20 meq/ 1,014.5455 mls @ 50 mls/hr 12/09/17 11:00 12:05 Potassium Phosphate 20 meq/ IV Infused Sodium Chloride .[id number] RANDALL Infusion Vancomycin HCl 1,750 mg/ 500 mls @ 250 mls/hr 12/09/17 14:00 12/12/17 08:00 Sodium Chloride IV 12/12/17 07:30 Not Given Q12H RANDALL Sodium Chloride 1,000 mls @ 500 mls/hr 12/10/17 16:53 12/10/17 19:30 Normal Saline IV 12/10/17 18:52 Infused .Q2H ONE Infusion Sodium Chloride 1,000 mls @ 75 mls/hr 12/11/17 18:00 12/12/17 14:46 Normal Saline IV Infused .[id number] RANDALL Infusion Sodium Chloride 500 mls @ 250 mls/hr 12/11/17 15:45 12/11/17 18:20 Normal Saline IV 12/11/17 17:44 Infused .Q2H RANDALL Infusion Vancomycin HCl 1,750 mg/ 500 mls @ 250 mls/hr 12/13/17 08:00 Sodium Chloride IV 12/13/17 08:00 Q24H RANDALL Sodium Bicarbonate 100 meq/ 1,100 mls @ 75 mls/hr 12/12/17 14:00 12/13/17 12: 30 Dextrose IV Infused .[id number] RANDALL Infusion Vancomycin HCl 1,250 mg/ 250 mls @ 200 mls/hr 12/14/17 08:00 12/14/17 11:00 Sodium Chloride IV Infused Q48H RANDALL Infusion Zoledronic Acid 3 mg in 75 mls @ 150 mls/hr 12/13/17 12:00 12/13/17 14:59 Zometa IV 12/13/17 12:29 Infused O ONE Infusion Sodium Bicarbonate 100 meq/ 1,100 mls @ 100 mls/hr 12/13/17 12:30 12/16/17 12 :04 Dextrose IV Not Given .Q11H RANDALL Cefepime HCl 1 gm/ Sodium 100 mls @ 200 mls/hr 12/14/17 19:30 12/15/17 01:35 Chloride IV Infused Q6H RANDALL Infusion Cefepime HCl 1 gm/ Sodium 50 mls @ 200 mls/hr 12/15/17 09:00 12/17/17 09:25 Chloride IV Infused Q6HR RANDALL Infusion Vancomycin HCl 1,000 mg/ 250 mls @ 250 mls/hr 12/15/17 12:00 12/16/17 14:11 Sodium Chloride IV 12/17/17 11:59 Infused Q24H RANDALL Infusion Dextrose/Sodium Chloride 1,000 mls @ 75 mls/hr 12/15/17 13:30 12/19/17 14:00 D5-1/2ns IV Infused .[id number] RANDALL Infusion Dexamethasone 10 mg/ Sodium 52.5 mls @ 210 mls/hr 12/16/17 14:00 12/16/17 14: 39 Chloride IV 12/16/17 14:14 Infused O ONE Infusion Carboplatin 377 mg/ Dextrose 287.7 mls @ 250 mls/hr 12/16/17 14:30 12/16/17 16:00 IV 12/16/17 15:39 Infused O ONE Infusion Etoposide 100 mg/ Sodium 505 mls @ 125 mls/hr 12/16/17 15:30 12/16/17 20:00 Chloride IV 12/16/17 19:32 Infused O ONE Infusion Dexamethasone 10 mg/ Sodium 52.5 mls @ 150 mls/hr 12/17/17 14:00 12/17/17 14: 42 Chloride IV 12/17/17 14:20 Infused O ONE Infusion Etoposide 100 mg/ Sodium 505 mls @ 125 mls/hr 12/17/17 14:30 12/17/17 19:00 Chloride IV 12/17/17 18:32 Infused O ONE Infusion Vancomycin HCl 1,000 mg/ 250 mls @ 250 mls/hr 12/18/17 00:01 12/21/17 01:28 Sodium Chloride IV 12/21/17 11:00 Infused Q36H RANDALL Infusion Cefepime HCl 1 gm/ Sodium 50 mls @ 100 mls/hr 12/17/17 17:00 12/18/17 09:01 Chloride IV 100 mls/hr Q8HR RANDALL Administration Levofloxacin/Dextrose 750 mg in 150 mls @ 100 mls/hr 12/19/17 09:00 12/19/17 12:15 Levaquin Premix IV Infused Q48H RANDALL Infusion Dexamethasone 10 mg/ Sodium 52.5 mls @ 150 mls/hr 12/18/17 14:00 12/18/17 14: 38 Chloride IV 12/18/17 14:20 Infused O ONE Infusion Etoposide 100 mg/ Sodium 505 mls @ 125 mls/hr 12/18/17 14:30 12/18/17 14:38 Chloride IV 12/18/17 18:32 125 mls/hr O ONE Administration Albumin Human 100 mls @ 50 mls/hr 12/18/17 12:00 12/21/17 05:19 Albumin Human 25 Gm IV Infused Q8H RANDALL Infusion Cefepime HCl 1 gm/ Sodium 50 mls @ 100 mls/hr 12/18/17 21:00 12/21/17 09:18 Chloride IV 12/21/17 11:00 Infused Q12H RANDALL Infusion Potassium Chloride 40 meq/ 520 mls @ 100 mls/hr 12/19/17 13:00 12/19/17 19:00 Dextrose IV 12/19/17 18:11 100 mls/hr .[id number] RANDALL Infusion Potassium Chloride 40 meq/ 1,020 mls @ 100 mls/hr 12/21/17 10:00 12/23/17 07: 07 Dextrose IV Infused .[id number] RANDALL Infusion Albumin Human 50 mls @ 50 mls/hr 12/21/17 12:00 12/23/17 05:20 Albumin Human 12.5 Gm IV Infused Q8H RANDALL Infusion Rasburicase 3 mg/ Sodium 50 mls @ 100 mls/hr 12/21/17 14:30 12/21/17 19:51 Chloride IV 12/21/17 14:59 Infused O ONE Infusion Dextrose/Sodium Chloride 1,000 mls @ 75 mls/hr 12/22/17 18:45 12/23/17 08:20 D5-1/2ns IV 75 mls/hr .[id number] RANDALL Administration Magnesium Hydroxide 30 ml 12/07/17 12:53 Mom PO DAILY PRN Constipation Methylprednisolone Sodium Succinate 125 mg 12/15/17 15:30 12/21/17 08:50 Solu-Medrol IVP 125 mg Q6HR RANDALL Administration Metoclopramide HCl 5 mg 12/17/17 14:30 12/19/17 10:58 Reglan Not Given Q6H RANDALL Morphine Sulfate 2 mg 12/07/17 12:47 12/14/17 10:38 Morphine Sulfate Inj IVP 2 mg Q2HR PRN Administration Pain Morphine Sulfate 4 mg 12/14/17 11:20 12/19/17 09:54 Morphine Sulfate Inj IVP 4 mg Q2HR PRN Administration Pain Palonosetron 0.25 mg 12/16/17 14:00 12/16/17 14:04 Aloxi IV 12/16/17 14:01 0.25 mg O ONE Administration Pharmacy Consult 1 each 12/11/17 11:34 Pharmacy Consult - Fall Risk XX 12/11/17 11:35 ONE TIME ONE Pharmacy Consult 1 each 12/19/17 17:12 Pharmacy Consult - Fall Risk XX 12/19/17 17:13 ONE TIME ONE Potassium Chloride 20 meq 12/12/17 13:58 12/12/17 14:14 K-Dur 20 Meq Tablet PO 12/12/17 13:59 20 meq O ONE Administration Potassium Chloride 20 meq 12/13/17 12:30 12/19/17 10:58 K-Dur 20 Meq Tablet PO Not Given BIDWM RANDALL Promethazine HCl/Codeine 5 ml 12/07/17 12:49 Phenergan + Codeine PO Q6HR PRN Cough Rasburicase 3 mg 12/21/17 13:35 12/21/17 18:17 Elitek IV 12/21/17 13:36 Not Given O ONE Sodium Chloride 10 - 80 ml 12/07/17 08:43 12/20/17 15:18 Iv Flush IVF 40 ml PRN PRN Administration Flushing Sodium Chloride 500 ml 12/07/17 11:24 12/10/17 16:47 Normal Saline IV 500 ml PRN PRN Administration Sodium Chloride 500 ml 12/09/17 10:36 12/11/17 08:14 Normal Saline IV 500 ml PRN PRN Administration Sodium Chloride 500 ml 12/10/17 16:57 Normal Saline IV PRN PRN Sodium Chloride 500 ml 12/11/17 10:29 Normal Saline IV PRN PRN Sodium Chloride 500 ml 12/13/17 09:27 Normal Saline IV PRN PRN Sodium Chloride 500 ml 12/13/17 10:04 Normal Saline IV PRN PRN Sodium Chloride 500 ml 12/15/17 09:29 Normal Saline IV PRN PRN Spironolactone 12.5 mg 12/13/17 09:30 12/13/17 11:51 Aldactone PO 12/13/17 09:31 12.5 mg ONE TIME ONE Administration Vancomycin HCl 1 each 12/07/17 11:09 Pharmacy Consult - Vancomycin MC 12/07/17 11:10 O ONE Vancomycin HCl 1 each 12/07/17 11:21 Pharmacy Consult - Vancomycin 12/07/17 11:22 O ONE - Constitutional no acute distress, cachectic, cooperative - Routine HEENT Exam Head: Present: normocephalic, atraumatic Eye: Present: EOMI, PERRL - Routine Neck Exam Present: supple, full ROM, trachea midline - Routine Respiratory Exam Present: decreased breath sounds, rhonchi. Absent: patient mechanically ventilated - Routine Cardiovascular Exam Present: RRR, S1, S2, no murmur - Routine Abdominal Exam Present: soft, normoactive bowel sounds - Routine Extremities Exam Present: edema, non tender, full ROM. Absent: cyanosis - Routine Back/Spine/Pelvis Exam Back/Spine: Present: full ROM - Routine Skin Exam Present: intact, dry - Routine Neurological Exam Present: alert, oriented X3, CN II-XII intact - Routine Psychiatric Exam Present: normal affect, normal thought process - Urinary Catheter Management Urethral Cath placed during this visit: yes Urethral indwelling: Yes Insertion date: 12/07/17 Insertion time: 19:45 Results - Laboratory Findings Laboratory: Laboratory Results - last 48 hr 12/19/17 12/21/17 12/21/17 10:55 11:03 12:44 WBC RBC Hgb Hct MCV MCH MCHC RDW Std Deviation Plt Count MPV Neutrophils % (Manual) Lymphocytes % (Manual) Neutrophils # (Manual) Lymphocytes # (Manual) Poikilocytosis Anisocytosis Tear Drop Cells Ovalocytes Helmet Cells RBC Morph Comment Turbidity Sodium Potassium Chloride Carbon Dioxide Anion Gap BUN Creatinine GFR Calculation BUN/Creatinine Ratio Glucose Glucometer 222 Calculated Osmolality Uric Acid Calcium Phosphorus Magnesium Total Bilirubin Icterus Index AST ALT Alkaline Phosphatase Lactate Dehydrogenase C-Reactive Protein Total Protein Albumin Globulin Albumin/Globulin Ratio Specimen Hemolysis Blood Type O Positive Antibody Screen Negative Crossmatch (AHG) See Detail Blood Product Request 1 unit pc issued 12/21/17 12/21/17 12/21/17 16:47 18:41 19:16 WBC RBC Hgb Hct MCV MCH MCHC RDW Std Deviation Plt Count MPV Neutrophils % (Manual) Lymphocytes % (Manual) Neutrophils # (Manual) Lymphocytes # (Manual) Poikilocytosis Anisocytosis Tear Drop Cells Ovalocytes Helmet Cells RBC Morph Comment Turbidity < 20 Sodium 153 H Potassium 3.4 L Chloride 112 H Carbon Dioxide 24 Anion Gap 17 H BUN 100.0 H* Creatinine 2.4 H GFR Calculation 28 BUN/Creatinine Ratio 42 H Glucose 213 H Glucometer 216 Calculated Osmolality 331 H Uric Acid Calcium 5.9 L* Phosphorus Magnesium Total Bilirubin Icterus Index < 2 AST ALT Alkaline Phosphatase Lactate Dehydrogenase C-Reactive Protein Total Protein Albumin Globulin Albumin/Globulin Ratio Specimen Hemolysis < 15 Blood Type Antibody Screen Crossmatch ([facility]) Blood Product Request 1 unit ppp issued 12/21/17 12/21/17 12/22/17 19:16 19:16 00:26 WBC RBC Hgb 7.4 L D Hct MCV MCH MCHC RDW Std Deviation Plt Count 17 L* D MPV Neutrophils % (Manual) Lymphocytes % (Manual) Neutrophils # (Manual) Lymphocytes # (Manual) Poikilocytosis Anisocytosis Tear Drop Cells Ovalocytes Helmet Cells RBC Morph Comment Turbidity Sodium Potassium Chloride Carbon Dioxide Anion Gap BUN Creatinine GFR Calculation BUN/Creatinine Ratio Glucose Glucometer 214 Calculated Osmolality Uric Acid Calcium Phosphorus Magnesium Total Bilirubin Icterus Index AST ALT Alkaline Phosphatase Lactate Dehydrogenase C-Reactive Protein Total Protein Albumin Globulin Albumin/Globulin Ratio Specimen Hemolysis Blood Type Antibody Screen Crossmatch ([facility]) Blood Product Request 12/22/17 12/22/17 12/22/17 03:53 03:53 05:39 WBC 0.2 L* D RBC 2.44 L Hgb 7.4 L Hct 22.1 L D MCV 90.6 MCH 30.3 MCHC 33.5 RDW Std Deviation 67.1 H Plt Count 11 L* D MPV 8.8 L Neutrophils % (Manual) 72.0 H Lymphocytes % (Manual) 28.0 Neutrophils # (Manual) 0.1 L Lymphocytes # (Manual) 0.1 L Poikilocytosis 2+ Anisocytosis 2+ Tear Drop Cells 1+ Ovalocytes 1+ Helmet Cells 1+ RBC Morph Comment Abnormal Turbidity < 20 Sodium 152 H Potassium 3.7 Chloride 113 H Carbon Dioxide 22 Anion Gap 17 H BUN 102.0 H* Creatinine 2.4 H GFR Calculation 28 BUN/Creatinine Ratio 43 H Glucose 188 H Glucometer 155 Calculated Osmolality 329 H Uric Acid 7.8 Calcium 5.4 L* D Phosphorus 6.7 H Magnesium 2.1 Total Bilirubin 1.50 H Icterus Index < 2 AST 44 ALT 34 Alkaline Phosphatase 186 H D Lactate Dehydrogenase 3720 H C-Reactive Protein Total Protein 5.1 L Albumin 3.0 L Globulin 2.1 L Albumin/Globulin Ratio 1.4 Specimen Hemolysis < 15 Blood Type Antibody Screen Crossmatch ([facility]) Blood Product Request 12/22/17 12/22/17 12/22/17 12:31 16:04 17:30 WBC RBC Hgb Hct MCV MCH MCHC RDW Std Deviation Plt Count MPV Neutrophils % (Manual) Lymphocytes % (Manual) Neutrophils # (Manual) Lymphocytes # (Manual) Poikilocytosis Anisocytosis Tear Drop Cells Ovalocytes Helmet Cells RBC Morph Comment Turbidity < 20 Sodium 151 H Potassium 4.2 Chloride 112 H Carbon Dioxide 21 L Anion Gap 18 H BUN 105.0 H* Creatinine 2.5 H GFR Calculation 27 BUN/Creatinine Ratio 42 H Glucose 226 H Glucometer 248 Calculated Osmolality 330 H Uric Acid Calcium 5.3 L* Phosphorus Magnesium Total Bilirubin Icterus Index < 2 AST ALT Alkaline Phosphatase Lactate Dehydrogenase C-Reactive Protein Total Protein Albumin Globulin Albumin/Globulin Ratio Specimen Hemolysis < 15 Blood Type Antibody Screen Crossmatch ([facility]) Blood Product Request 1 unit ppp issued 12/22/17 12/22/17 12/23/17 17:30 22:43 04:12 WBC 0.1 L* D RBC 2.31 L Hgb 7.1 L Hct 21.4 L MCV 92.6 MCH 30.7 MCHC 33.2 RDW Std Deviation 68.3 H Plt Count 15 L* D 9 L* D MPV 9.3 L Neutrophils % (Manual) 24.0 L Lymphocytes % (Manual) 76.0 H Neutrophils # (Manual) 0.0 L Lymphocytes # (Manual) 0.1 L Poikilocytosis 2+ Anisocytosis 2+ Tear Drop Cells 1+ Ovalocytes 1+ Helmet Cells 1+ RBC Morph Comment Abnormal Turbidity Sodium Potassium Chloride Carbon Dioxide Anion Gap BUN Creatinine GFR Calculation BUN/Creatinine Ratio Glucose Glucometer 197 Calculated Osmolality Uric Acid Calcium Phosphorus Magnesium Total Bilirubin Icterus Index AST ALT Alkaline Phosphatase Lactate Dehydrogenase C-Reactive Protein Total Protein Albumin Globulin Albumin/Globulin Ratio Specimen Hemolysis Blood Type Antibody Screen Crossmatch ([facility]) Blood Product Request 12/23/17 12/23/17 12/23/17 04:12 05:03 10:28 WBC RBC Hgb Hct MCV MCH MCHC RDW Std Deviation Plt Count MPV Neutrophils % (Manual) Lymphocytes % (Manual) Neutrophils # (Manual) Lymphocytes # (Manual) Poikilocytosis Anisocytosis Tear Drop Cells Ovalocytes Helmet Cells RBC Morph Comment Turbidity < 20 Sodium 149 H Potassium 4.1 Chloride 112 H Carbon Dioxide 22 Anion Gap 15 BUN 103.0 H* Creatinine 2.5 H GFR Calculation 27 BUN/Creatinine Ratio 41 H Glucose 237 H Glucometer 253 223 Calculated Osmolality 326 H Uric Acid 7.1 Calcium 5.3 L* Phosphorus 6.0 H Magnesium Total Bilirubin Icterus Index < 2 AST ALT Alkaline Phosphatase Lactate Dehydrogenase 3493 H C-Reactive Protein 58.6 H Total Protein Albumin 3.1 L Globulin Albumin/Globulin Ratio Specimen Hemolysis < 15 Blood Type Antibody Screen Crossmatch (AHG) Blood Product Request Assessment and Plan - Assessment and Plan Acute Hypoxic Respiratory Failure RUL pneumonia Right pleural effusion - improved 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 Cont on Bt's with A/A q4hr, solum 80mg q6hr, wean. S/p abx with levaquin, vanco and cefepime for pna. s/p chemo, follow - Time Spent With Patient Total time spent is greater than 50% in coordination of care (as documented) at patient's floor/unit and/or counseling patient: less than 15 minutes
[2017-12-23] MEDS: D5W 1,000 ML IV SCH (11:56)
[2017-12-23] MEDS: CALCIUM CARBONATE Chewable 500mg TABLET PO SCH ×2 (12:48→17:49)
--- NOTE | 2017-12-23 14:57 | Progress Note ---
Oncology Subjective Patient much more alert today answers questions appropriately. Slight amount of difficulty understanding but seems to be oriented to person place and time. Breathing is easier. Exam Vital signs: Temperature 98.5 F 12/23/17 08:00 Pulse Rate 108 H 12/23/17 12:00 Respiratory Rate 14 12/23/17 12:00 Blood Pressure 149/95 H 12/23/17 12:00 Pulse Oximetry 99 12/23/17 12:00 - Constitutional mild distress - Routine HEENT Exam Head: Present: normocephalic Eye: Present: EOMI. Absent: scleral injection Throat: other (Bloody mucous present. ) - Routine Neck Exam Present: supple. Absent: lymphadenopathy - Routine Respiratory Exam Present: accessory muscle use, rales (bilaterally), rhonchi - Routine Cardiovascular Exam Present: RRR, no murmur - Routine Abdominal Exam Present: soft, tenderness. Absent: rebound, guarding - Routine Extremities Exam Present: edema - Routine Back/Spine/Pelvis Exam Comments: Severe arthropathy of feet. - Routine Skin Exam Present: dry, warm, ecchymosis - Routine Neurological Exam Present: alert, oriented X3, CN II-XII intact - Routine Psychiatric Exam Present: normal affect Oncology Results - Labs CBC & Chem 7: 12/23/17 16:33 12/23/17 17:56 Labs: Short CBC 12/22/17 12/23/17 Range/Units 17:30 04:12 WBC 0.1 L* D (4.5-11.0) T/MM3 Hgb 7.1 L (13.5-17.5) GM/DL Hct 21.4 L (41-53) % Plt Count 15 L* D 9 L* D (130-400) T/MM3 BMP 12/22/17 12/23/17 17:30 04:12 Sodium 151 H 149 H Potassium 4.2 4.1 Chloride 112 H 112 H Carbon Dioxide 21 L 22 BUN 105.0 H* 103.0 H* Creatinine 2.5 H 2.5 H Glucose 226 H 237 H Calcium 5.3 L* 5.3 L* Liver Function 12/23/17 Range/Units 04:12 Albumin 3.1 L (3.5-5.0) g/dL Laboratory Tests 12/23/17 12/23/17 04:12 04:12 WBC 0.1 L* D Hgb 7.1 L Plt Count 9 L* D Sodium 149 H BUN 103.0 H* Creatinine 2.5 H Uric Acid 7.1 Phosphorus 6.0 H Lactate Dehydrogenase 3493 H Albumin 3.1 L Assessment and Plan Assessment and Plan: .1. 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 Began chemotherapy with carboplatin and etoposide on 12/16/17. Completed on 12/18/17. Started G-CSF 12/19. Continues today. Severe pancytopenia even prior to chemotherapy secondary to bone marrow involvement On Granix. More alert today. Continuing aggressive support. 2. Moderate respiratory distress/respiratory failure due to advanced disease and obstructive pneumonia. Pulmonology following. On high flow O2. Breathing seems to be improving. 3. Hypercalcemia due to malignancy. Improving, calcium level 10.0 on 12/17/17, 8.6 on 12/18/17, 7.9 on 12/19/17. 6.8 with albumin of 2.7 on 12/20/17 On 12/23/17 it is 5.0 with Albumin of 2.9. May benefit from calcium replacement. Discussed with hospitalist. 4. Pancytopenia; neutropenia and thrombocytopenia due to bone metastasis and most likely bone marrow metastases. Platelets on 12/17/17 are 20 K, platelets 23K on 12/18/17. HGB on 12/18/17 is 7.3, WBC 1.9/ANC 1.7, 12/19/17: WBC 2.0, ANC 1.9, PLT 16. /08/29 WBC1.3, ANC-1.1, PLT-9 Platelets given. 12/21/17 -WBC 0.5/ANC is 0.4, HGB 6.5, PLT 7. 12/23/17: WBc-0.1 24% neutrophils. Hgb 7.1 and PLT 9. Will give platelets. 5. Anemia Hgb 7.2 on 12/19/17. Hemoglobin 6.5 on 12/21/17, one unit PRBC'S given 12/23/17: Hgb 7.1 . 6. LDH is starting to decrease 12/18/17: [id number] 12/19/17: [id number] 12/20/17: [id number] 12/21/17: [id number] 12/22/17: [id number] 12/23/17: [id number] 7. Renal insufficiency Creatinine stable at 2.0 on 12/20/17, increased at 2.3 on 12/21/17. Creat 2.5 on 12/23/17. 8. Respiratory insufficency. On High flow O2. 9. Unequal pupils with negative CT. Will follow. Improved. 10. Hyperuricemia, uric acid 8.6 on12/21/17, 7.1 on 12/23/17. Plan Completed chemotherapy12/18/17. Supportive care, antibiotics. Continue C-GSF for neutropenia starting 12/19 . Follow counts daily; supportive care with platelets and packed RBCs Prognosis guarded. - Time Spent With Patient Total time spent is greater than 50% in coordination of care (as documented) at patient's floor/unit and/or counseling patient: 25 - 35 minutes
[2017-12-23] MEDS: METOCLOPRAMIDE 10mg/2ml INJECTION IVP PRN (17:49)
[2017-12-23] MEDS: TBO-FILGRASTIM 480mcg/0.8ml INJECTION SQ SCH (18:25)
[2017-12-23] MEDS ORDERED: CALCIUM GLUCONATE 1,000 MG in NS 50 ML IV ONE (18:32)
[2017-12-24] MEDS: MORPHINE SULFATE 4mg INJECTION IVP PRN ×5 (01:01→17:01)
[2017-12-24] MEDS: D5W 1,000 ML IV SCH ×2 (02:17→16:30)
[2017-12-24] MEDS: ALBUTEROL/IPRATROPIUM 2.5mg-0.5mg/3ml NEB AEROSOL SCH ×6 (03:11→23:51)
[2017-12-24] MEDS: METHYLPREDNISOLONE SOD SUCC 125mg/2ml INJECTION IVP SCH ×4 (04:17→21:20)
[2017-12-24] MEDS: POLYETHYL GLYCOL 3350 17gm PACKET PO SCH (08:14)
--- NOTE | 2017-12-24 08:14 | XRay Report ---
Indication: emesis PROCEDURE: XR abdomen 1V: Encounter: Initial Comparison: CT abdomen dated December 20, 2017 Findings: No gross free air. Small pleural effusions. Bowel gas pattern is nonobstructive and nonspecific overall. No significant stool burden seen. Degenerative change in the spine. Impression: Nonobstructive bowel gas pattern. .
[2017-12-24] MEDS: PANTOPRAZOLE 40 MG INJECTION IVP SCH (08:24)
[2017-12-24] MEDS: METOCLOPRAMIDE 10mg/2ml INJECTION IVP PRN ×2 (08:24→14:04)
[2017-12-24] MEDS: NYSTATIN 500,000 units/5 ml ORAL LIQUID PO SCH ×4 (08:25→21:21)
[2017-12-24] MEDS: LACTULOSE 20 GM/30 ML ORAL LIQUID PO PRN (08:25)
[2017-12-24] MEDS: ALLOPURINOL 100 MG TABLET PO SCH (08:25)
[2017-12-24] MEDS: CALCIUM CARBONATE Chewable 500mg TABLET PO SCH ×3 (08:25→17:01)
[2017-12-24] MEDS: NICOTINE 21 MG PATCH TD SCH (08:25)
[2017-12-24] MEDS: NICOTINE PATCH REMOVAL TD SCH (08:25)
[2017-12-24] MEDS: SALINE 0.65% NASAL SPRAY 44 ML BOTTLE EA NOSTRIL SCH ×4 (08:26→21:21)
--- NOTE | 2017-12-24 08:27 | XRay Report ---
Indication: hypoxia PROCEDURE: XR chest 1V: Encounter: Initial Comparison: December 25, 2017 Findings: Left PICC line remains in place. Persistent consolidation and mass in the right perihilar region and right upper lobe. No new or worsening airspace disease. Small bilateral effusions are stable. No pneumothorax. Heart size is unchanged. Impression: Stable appearance of the chest. .
--- NOTE | 2017-12-24 08:33 | Progress Note ---
- Date 12/24/17 Subjective: The patient was seen this morning in his room. Family is not currently present. Per his nurse, he frequently pulled off BiPAP last night. He did have nausea yesterday late afternoon with some vomiting. He did not have any further nausea or vomiting last night. He was able to drink a whole cup of thickened juice last evening. This morning, the patient denies any pain. He states his breathing is "slow." He denies any pain in his mouth. He states his mouth feels dry. He has had no recent bowel movements. He has been passing gas. He has a Rivas catheter in place with good urine output. Objective Vital signs: Temperature 98.1 F 12/23/17 20:00 Pulse Rate 133 H 12/24/17 07:18 Respiratory Rate 12 12/24/17 07:04 Blood Pressure 131/83 12/24/17 07:00 Pulse Oximetry 95 12/24/17 07:04 Rhythm: Normal Sinus Rhythm, Sinus Tachycardia Height/Weight/BMI: Height 1.7 m Weight 81.8 kg Body Mass Index 28.2 Comments: Afebrile, heart rate 105 to 115, blood pressure 131/83, O2 sat 95% on 12 L per nasal cannula (down from 15 L yesterday), respirations 14 I&O yesterday 3311/1141 Weight is 81.6 kg which is stable from yesterday but overall up 21 kg since admission GEN-mildly drowsy, speech somewhat difficult to understand, asks appropriate questions, chronically ill-appearing, no acute distress HEENT-sclera anicteric, pupils appear equal to me today, oropharynx is mildly dry with some bruising seen on the soft palate. No bleeding seen NECK-supple CV-mild tachycardic rate with irregular rhythm CHEST-her to auscultation anteriorly ABD-soft, moderately distended, positive bowel sounds, nontender -Rivas in place with good urine output EXT-4+ edema in the legs, 2-3+ edema in the arms, left hand is without edema, right hand reveals +2 edema NEURO-drowsy, no focal deficits, generalized weakness present SKIN-warm and dry Results - Labs CBC & Chem 7: 12/24/17 04:01 12/24/17 04:01 Labs: Uric acid is normal at 6.6, calcium is 5.4, phosphorus 5.6, albumin 3.1 Microbiology Results: Microbiology 12/10/17 15:57 Peripheral/Iv Start Blood Culture - Final No Growth After 5 Days 12/10/17 16:00 Peripheral/Iv Start Blood Culture - Final No Growth After 5 Days 12/07/17 12:45 Sputum, Expectorated Gram Stain - Final 12/07/17 12:45 Sputum, Expectorated Sputum Culture - Final Pseudomonas aeruginosa Haemophilus influenzae Staphylococcus aureus Normal Resp Pallavi incl. Yeast 12/07/17 18:13 Urine Legionella Urinary Antigen - Final 12/07/17 18:13 Urine Streptococcus pneumoniae Antigen (M - Final - Impressions Chest x-ray today shows stable appearance of the chest with small bilateral effusions, no new or worsening airspace disease. Persistent consolidation and mass in the right perihilar region and right upper lobe. KUB early yesterday evening for emesis revealed nonobstructive bowel gas pattern Assessment and Plan (1) Septic shock Current visit: Yes Status: Acute (2) Pneumonia Current visit: Yes Status: Acute (3) Neuroendocrine carcinoma metastatic to liver Problem details: Lung/liver/bone involvement Current visit: Yes Status: Acute Assessment and Plan: IMPRESSION Sepsis secondary to Right sided pneumonia Septic shock based on lactate of 4.5 (per CMS) Severe sepsis based on 2016 Surviving Sepsis Guidelines Organ dysfunction = MAP <70, hyperbilirubinemia (2.4), thrombocytopenia ( 16) SOFA on admission = 7, presumed baseline of 0 Pneumonia -right upper lobe and right lower lobe-sputum positive for Pseudomonas , Haemophilus, and MSSA; Completed 14 days of cefepime, Levaquin, and vancomycin on 12/20. 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 Chemotherapy 12/16- for neuroendocrine malignancy. Pancytopenia (POA) including platelet count of 16, WBC 3.7, and hgb of 8.9 on admission Hyperbilirubinemia, elevated AST and Alk phos, POA Hypercalcemia-Zometa given 12/13--> hypocalcemia Hypoalbuminemia-improved with albumin 3.1 Elevated LDH Elevated CRP and procalcitonin, secondary to acute infection Severe PCM - prealbumin undetectable Thrush Macrocytic anemia Rheumatoid arthritis-Imuran/Enbrel Acute on chronic Hyponatremia (POA) (baseline 131-134)-resolved Hypokalemia-12/19/17 Epistaxis, minor-12/20/17, resolved Pupil asymmetry noted 12/20, CT head without acute pathology. Immunocompromised pt-neutropenic, recent chemotherapy-start Levaquin prophylactically on 12/24/2017 Encephalopathy Sinus tachycardia Dysphagia-speech therapy consulted Volume overload/anasarca-the patient is intravascularly dry and will need to continue IV fluids for now. Give IV albumin if albumin level is less than 3. Hypernatremia-12/21/17 Metabolic acidosis-12/21/17 Acute Hypoxia respiratory failure-currently on 12 L; BiPAP when necessary initiated 12/18 LIEN-with good urine output Hypocalcemia without symptoms-given IV calcium gluconate 1 g times one yesterday. Oral calcium initiated. Vitamin D levels pending Hyperuricemia -received rasburicase IV and uric acid level now normal Hyperglycemia secondary to steroids and D5W PLAN Start Levaquin prophylactically regarding neutropenia Remains on methylprednisolone and breathing treatments for respiratory failure. Chest x-ray is slowly improving. Dependent on high flow oxygen/BiPAP. Continue G-CSF (initiated 12/19). Neutropenic precautions initiated 12/21. Remains pancytopenic, requires blood products intermittently-receive platelets yesterday. Uric acid normalized-continue allopurinol. Hypocalcemia without symptoms-given IV calcium gluconate 1 g times one yesterday. Oral calcium initiated. Vitamin D levels pending Regarding worsening hypernatremia, increase D5W to 100 ML's per hour Discussed acute kidney injury with anasarca with nephrology 12/23/2017. Recommended D5W to help with hypernatremia. Recommended discontinuation of albumin at this time now that albumin is over 3. Could repeat IV albumin if albumin level drops below 3. Repeat renal panel this afternoon Would give intermittent IV Bumex if needed for worsening urine output or hypoxia. Nystatin suspension for management of thrush while neutropenic. Encourage oral nutrition, speech therapy has been consulted. Continue daily CBC and renal panel. Check liver enzymes tomorrow. LDH is slowly improving Increase sliding scale insulin for hyperglycemia Case discussed with CCU nursing, and Dr. Galarza. The patient is critically ill. Greater than 45 minutes of critical care time spent seeing and evaluating the patient, determining care plan and discussing with consultants. Prognosis remains guarded. DVT Prophylaxis: SCD's GI Prophylaxis: Protonix Resuscitation Status: Do Not Resuscitate - Physician Narrative Physician: Didi Jolly MD Narrative: Date: 12/24/17 Time: 0824 Hospital Course Summary Disclaimer: The visit summary below is not to be considered part of the above Progress Note. Hospital Course: 12/07/17 Admit, inpatient status, to CCU; Patient is critically ill. Dr. Vivar attending. Septic shock based on CMS and Severe Sepsis based on Surviving Sepsis He received full 30 mL/kg bolus in ED. If unable to keep MAP >65, will need to start norepinephrine, which would indicate shock based on 2016 rec. Initial lactate was 4.5; if lactate is still elevated >4 on recheck, this would also indicate shock based on 2016 recommendations. Blood cultures already drawn. Repeat physical exam done. Repeat procalcitonin in am. Sinus tachycardia has improved after fluid boluses, from 138-105. Right sided pneumonia in an immunocompromised patient with significant smoking history. Cefepime was started in the ED -- will continue with this and add vancomycin and levofloxacin d/t immunocompromised state. Check for strep pneumo and legionella. Check sputum culture. Consult Dr. Mckinney; suspect he may require additional respiratory intervention and with smoking hx likely has underlying COPD. Acapella, DuoNeb. Ask RT to provide tobacco cessation information. Nicotine patch ordered. Hold RA medications including Enbrel & Imuran. Pancytopenia Suspect d/t sepsis. If no improvement in next few days consider heme consultation. Platelets only 16 on admission. Will give platelet pack x1. Lovenox is contraindicated. SCD for DVT prevention. Macrocytic anemia - check iron studies, folate, vitamin B12. Hyperbilirubinemia Suspect d/t sepsis. Hepatomegaly and RUQ tenderness. He had liver sonogram in Aug, 2017 which was normal. Check INR. Hyponatremia and hypercalcemia Suspect d/t dehydration. Continue IVF and check in am. Advanced directives None. Requests full resuscitation. 12/08/17 Continue with levofloxacin, cefepime and vancomycin for pulmonary coverage. Neb treatments and acapella to continue. Monitor saturations and work of breathing - on 2L currently. Will have speech check swallow secondary to coughing with swallow. Hemoglobin decreased to 6.7 - transfusion initiated. Iron/B12/Folate tests pending. Platelets increased to 30K. Monitor. No Lovenox due to thrombocytopenia. Sodium with slight improvement to 128, but potassium decreased to 3.7. Will change IVF to NS with 20KCl and 20KPhos and decrease rate to 75cc/hr. BP improved. Recheck CMP, Mg, Phos, Procalcitonin, and CBC secondary to resolving septic shock. Continues to need close nursing care and support, continue CCU monitoring. 12/09/17 Continue with levofloxacin, cefepime and vancomycin for pulmonary coverage. Neb treatments and acapella to continue. Monitor saturations and work of breathing - on 2L currently. Start Mycelex lola for thrush. Speech check recommends pureed diet as very difficult to chew foods - may need to upgrade is not liking pureed consistency. Platelets decreased to 20K. Monitor. Give platelet pack. Hemoglobin improved to 8.2 post transfusion yesterday. Sodium improvement to 134, with potassium and phos normal at 4.2 and 4.3 respectively. Continue IVF to NS with 20KCl and 20KPhos but decrease rate to 50cc/hr. BP improved. HR still in 115 range. Start Bladder retraining - possible discontinue Rivas in near future. Start Miralax daily to help bowel function - hold with loose stool. PT/OT consult to help improve strength. Can transfer to medical floor for continuation of care. 12/10/17 The patient became confused last night and was pulling off his oxygen and pulled out his IV. He is more calm at this time but is still confused. With his severity of illness, will transfer back to intensive care when a bed is open. In the meantime will have his nurse stay close to his room and obtain continuous oximetry. Dr. Galarza was called and consulted regarding his pancytopenia. We'll check PTH regarding hypercalcemia. His hypercalcemia is likely worse than it appears since he also has hypoalbuminemia. Hold IV fluids for now. He is 9 L up on fluids. May require diuresis. Continue Rivas catheter for now. Check ammonia level regarding altered mental status. Continue with levofloxacin, cefepime and vancomycin for pneumonia with immunosuppression. Neb treatments and acapella to continue. Monitor saturations and work of breathing - now requiring 4 L PT/OT consult. 12/11/17 The patient had recurrence of elevated lactate yesterday despite continued treatment with triple antibiotics. Heart rate was back up to 130. The patient was given IV fluids. This morning hemoglobin is dropped to 7.9 and platelets are 18,000. Discussed with Dr. Galarza and we will give 1 platelet pack and 1 unit of blood. There is concern for occult malignancy and we will obtain a CT head, chest, abdomen and pelvis all without contrast today. Regarding his elevated calcium, PTH was low. Await results of CAT scans. Regarding Pseudomonas and MSSA pneumonia, continue Levaquin. Stop cefepime. Continue vancomycin for now until blood cultures have returned. 12/12/17 Continue levofloxacin and vancomycin for antimicrobial coverage. Dr Galarza considering initiation of chemotherapy. Discussed with Dr Galarza about patient significantly declined status-concern currently too ill to start chemo. Worry that a large component of patient's acute problems are due to his cancerous process - uncertain if will make much gains without treating cancer, but uncertain how well he could tolerate chemo. Ultimately decided to wait until final path report returns before initiating chemo. Dr Galarza starting treatments to help protect from tumor lysis. IVF change to D5W with 2amps Bicarb at 75cc/hr to alkalinize urine. 12/13/17 More somnolent and weak this afternoon. Oral drive decreased. Continue levofloxacin and vancomycin for antimicrobial coverage. Increase rate of D5W with 2amps Bicarb to 100 cc/hr. Did give Lasix 20mg IV to help minimize edema and increase urine output. Zometa initiated by Dr Galarza to help hypercalcemia. Cautious oral intake secondary to somnolence. Continue pain control. Restart cefepime due to worsening pneumonia. 12/14/17 Dr Samayoa discussed with family - with small cell cancer, only hope for survival is chemotherapy. With patient's significant decline, uncertain if pt could survive chemo. Will continue with antimicrobial therapy. Add Solu-Medrol to try to decrease pulmonary inflammation. Platelet transfusion given due to declining platelets of 15. IVF changed to D5 1/2NS at 75. Lasix given earlier to help motivate fluid. Will repeat dose this evening. 12/15/17 More somnolent today. Speech evaluated patient-recommends NPO (to somnolent and weak to attempt swallow). O2 needs increasing - 6L. Creatine with increase to 1.5, urine output decreasing. Platelets 27 after 2 platelet pack transfusion yesterday. HGB 7.9. Oncology planning chemotherapy this afternoon - high risk for complications, but not likely to survive without treating his cancer. Discussed with about code status. Would recommend DNR as if patient would arrest, feel resuscitative measures would be futile. needs to discuss with family about this. Will continue with antimicrobial therapy and Solu-Medrol. 12/16/17 Oncology planning chemotherapy this afternoon - high risk for complications, but not likely to survive without treating his cancer. Discussed with about code status. Would recommend DNR as if patient would arrest, feel resuscitative measures would be futile. needs to discuss with family about this. Will continue with antimicrobial therapy and Solu-Medrol. 12/17/17 Family has elected to convert to DO NOT RESUSCITATE status. Chemotherapy initiated with etoposide and carboplatin; platelets being given today for count of 20. Ongoing antibiotic therapy-day 11. Persistent dysphasia with minimal oral intake, Dobbhoff to be placed. 12/18/17 Persistent pancytopenia; day 3 chemotherapy, day 12 triple antibiotics for sepsis. Oxygen demand increasing, creatinine climbing-converted to Bumex with albumin to attempt to diurese. Chest x-ray with increasing pleural effusions and pulmonary edema. Unable to place Dobbhoff and volume status precludes TPN. Prognosis guarded at best. 12/19/17 Date 13 antibiotics with cefepime, Levaquin, and vancomycin. Remains on high dose methylprednisolone for respiratory distress. Dependent on high flow oxygen/BiPAP. Chemotherapy 12/16-12/18 for neuroendocrine malignancy. G-CSF initiated 12/19. Remains pancytopenic, 1 unit packed red blood cells today. Will require platelets if any evidence of blood loss. Anticipate platelet transfusion tomorrow. Calcium stable following treatment. Urine output improving with albumin/Bumex; BUN climbing-continue regimen today but may not be able to continue if uremia progresses. IV fluids discontinued; supplement potassium IV due to inability to take oral medications. Repeat chest x-ray in a.m. 12/20/17 Remains pancytopenic, 1 unit packed red blood cells yesterday. Platelet pack today; Afrin nasal spray as needed for minor epistaxis-no ongoing bleeding this morning. Pupil asymmetry not previously present-mental status has not deteriorated compared to yesterday or the prior day and if anything patient may be slightly more alert but with thrombocytopenia will require CT head. Will also image abdomen/pelvis due to persistent/increasing abdominal pain to exclude intra-abdominal bleed. No contrast to be given. Calcium stable following treatment. Urine output improved with albumin/Bumex; however BUN climbing. Continue albumin but will hold Bumex today. Mycelex troches discontinued nursing request, will coated tongue with nystatin suspension for management of thrush will remains on antibiotics or neutropenic. 12/21/17 Completed 14 days of cefepime, Levaquin, and vancomycin on 12/20. Remains on high dose methylprednisolone for respiratory distress. Dependent on high flow oxygen/BiPAP. Chest x-ray/exam slightly improved from pulmonary perspective. Chemotherapy 12/16-12/18 for neuroendocrine malignancy. G-CSF initiated 12/19. Neutropenic precautions initiated 12/21. Remains pancytopenic, requires blood products intermittently-will receive packed red blood cells and platelets today. Pupil asymmetry noted yesterday, CT head without acute pathology. Will discuss MRI brain with Dr. Galarza. Abdominal imaging yesterday compatible with volume overload/anasarca but no evidence of acute intra-abdominal process or hemorrhage. Sodium climbing and potassium down with attempted diuresis-D5 with KCl initiated , electrolytes to be reevaluated later in the day. Diuretics discontinued yesterday, albumin infusions decreased to 12.5 g every 8 hours. 12/22/17 Remains pancytopenic, requires blood products intermittently-will receive platelets again today. Uric acid slightly better today after IV dose of Rasburicase yesterday-redose tomorrow if no further improvement; taking allopurinol. Pupil asymmetry noted 12/20, CT head without acute pathology. Sodium stable/slightly improved with D5 infusion; potassium has corrected. Persistent metabolic acidosis consistent with renal failure. Urine output acceptable off diuretics, continue low-dose albumin due to extensive third spacing of fluids. If creatinine/BUN rise further will require volume replacement. Calcium low however I'm reluctant to treat with calcium given elevated phosphorus-continue to monitor. Mycelex troches discontinued several days ago; nystatin suspension for management of thrush while neutropenic. Given improvement in mental status and patient interest in food will resume speech therapy. PICC line to be withdrawn 4-5 cm based on chest x-ray findings.
[2017-12-24] MEDS: LEVOFLOXACIN PB 750 MG/150 ML BAG IV SCH (08:50)
--- NOTE | 2017-12-24 12:07 | Progress Note ---
<Sharifa Duarte - Last Filed: 12/24/17 15:38> Oncology Subjective Alone in room. Alert/oriented X2. c/o dry mouth. Responds yes, my back when asked if having pain. Minimal po intake. Cont. w/ infreq. cough. Rivas. Last BM noted in chart 12/18/17-soft. General: No fever, no night sweats Eyes: No redness, no pain, no diplopia ENT: No mouth sores, + dry mouth Cardiac: No chest pain no palpitations Pulmonary: + cough, + shortness of breath, no wheezing Abdomen: No pain, no nausea vomiting, no diarrhea : Rivas Musculoskeletal: chronic back pain, rheumatoid arthritis. Neurological: No headaches, no focal weakness Skin: + penile and scrotal wounds. Psychiatric: No anxiety, no depression Exam Vital signs: Temperature 98.1 F 12/23/17 20:00 Pulse Rate 110 H 12/24/17 11:00 Respiratory Rate 16 12/24/17 11:30 Blood Pressure 111/78 12/24/17 11:00 Pulse Oximetry 99 12/24/17 11:30 - Constitutional no acute distress, well developed, cooperative - Routine HEENT Exam Head: Present: normocephalic Eye: Present: EOMI Nose: dry mucous membranes (no oral lesions ) - Routine Neck Exam Present: supple. Absent: lymphadenopathy - Routine Respiratory Exam Present: rhonchi. Absent: wheezes - Routine Cardiovascular Exam Present: RRR - Routine Abdominal Exam Present: soft, distended (Bowel sounds present, bit decreased) - Routine Exam Penile: Present: swelling, ulceration Scrotal: Present: swelling - Routine Extremities Exam Present: edema - Routine Skin Exam Present: dry, pallor, petechiae, ecchymosis (christopher. upper arms, RUQ of abd.) - Routine Neurological Exam Present: alert, vision grossly intact, hearing grossly intact - Routine Psychiatric Exam Present: normal affect, cooperative Oncology Results - Labs CBC & Chem 7: 12/24/17 04:01 12/24/17 14:32 Labs: Short CBC 12/23/17 12/24/17 Range/Units 16:33 04:01 WBC 0.1 L* (4.5-11.0) T/MM3 Hgb 7.5 L (13.5-17.5) GM/DL Hct 23.0 L (41-53) % Plt Count 16 L* D 14 L* (130-400) T/MM3 BMP 12/23/17 12/24/17 17:56 04:01 Sodium 143 D 151 H D Potassium 3.7 3.7 Chloride 108 H 113 H Carbon Dioxide 20 L 21 L BUN 97.0 H* 103.0 H* Creatinine 2.3 H D 2.4 H Glucose 395 H 171 H Calcium 5.0 L* 5.4 L* Liver Function 12/23/17 12/24/17 Range/Units 17:56 04:01 Albumin 2.9 L 3.1 L (3.5-5.0) g/dL Assessment and Plan Assessment and Plan: ASSESSMENT 1. 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 Began chemotherapy with carboplatin and etoposide on 12/16/17. Completed on 12/18/17. Started G-CSF 12/19. Continues today. Severe pancytopenia even prior to chemotherapy secondary to bone marrow involvement. On Granix. More alert today. Continuing aggressive support. 2. Moderate respiratory distress/respiratory failure due to advanced disease and obstructive pneumonia. Pulmonology following. Today,12/24/17- O2 via nasal cannula only at time of intake. Breathing seems to be improving. 3. Hypercalcemia due to malignancy. Improving, calcium level 10.0 on 12/17/17, 8.6 on 12/18/17, 7.9 on 12/19/17. 6.8 with albumin of 2.7 on 12/20/17. On 12/23/17 calcium is 5.0 with Albumin of 2.9. May benefit from calcium replacement. Discussed with hospitalist. Calcium 12/24/17 is 5.1 4. Pancytopenia; neutropenia and thrombocytopenia due to bone metastasis and most likely bone marrow metastases. Platelets on 12/17/17 are 20 K, platelets 23K on 12/18/17. HGB on 12/18/17 is 7.3, WBC 1.9/ANC 1.7, 12/19/17: WBC 2.0, ANC 1.9, PLT 16. 3/08/29 WBC 1.3, ANC-1.1, PLT-9 Platelets given. 12/21/17 -WBC 0.5/ANC is 0.4, HGB 6.5, PLT 7. One unit PRBC's given 12/23/17: WBC-0.1 24% neutrophils. Hgb 7.1 and PLT 9. Will give platelets. 12/24/17: WBC 0.1, 10%neutrophils. Hgb 7.5, and PLT14. 5. LDH is starting to decrease 12/18/17: LDH 5077 12/19/17: LDH 4612 12/20/17: LDH 4661 12/21/17: LDH 4217 12/22/17: LDH 3720 12/23/17: LDH 3493 12/24/17: LDH 3334 6. Renal insufficiency Creatinine stable at 2.0 on 12/20/17, increased at 2.3 on 12/21/17. Creat 2.5 on 12/23/17. Creat 2.4 on 12/24/17. 7. Respiratory insufficency. On High flow O2. 8. Unequal pupils with negative CT. Will follow. Improved. 9. Hyperuricemia, uric acid 8.6 on12/21/17, 7.1 on 12/23/17, and 6.6 on 12/24/17 Plan Completed chemotherapy 12/18/17. Continue aggressive supportive care, antibiotics. Continue C-GSF for neutropenia; started 12/19. Follow counts daily; supportive care with platelets and packed RBCs Prognosis guarded. - Time Spent With Patient Total time spent is greater than 50% in coordination of care (as documented) at patient's floor/unit and/or counseling patient: less than 15 minutes <Davy Galarza - Last Filed: 12/24/17 18:27> Exam Vital signs: Temperature 98.0 F 12/24/17 12:00 Pulse Rate 107 H 12/24/17 16:00 Respiratory Rate 10 12/24/17 15:08 Blood Pressure 122/77 12/24/17 15:00 Pulse Oximetry 100 12/24/17 15:08 Oncology Results - Labs CBC & Chem 7: 12/24/17 04:01 12/24/17 14:32 Labs: Short CBC 12/24/17 Range/Units 04:01 WBC 0.1 L* (4.5-11.0) T/MM3 Hgb 7.5 L (13.5-17.5) GM/DL Hct 23.0 L (41-53) % Plt Count 14 L* (130-400) T/MM3 BMP 12/23/17 12/24/17 12/24/17 17:56 04:01 14:32 Sodium 143 D 151 H D 147 H Potassium 3.7 3.5 L Chloride 113 H 109 H Carbon Dioxide 21 L 20 L BUN 97.0 H* 103.0 H* 100.0 H* Creatinine 2.3 H D 2.4 H 2.3 H Glucose 171 H 296 H Calcium 5.0 L* 5.4 L* 5.1 L* Liver Function 12/24/17 12/24/17 Range/Units 04:01 14:32 Albumin 3.1 L 2.8 L (3.5-5.0) g/dL Assessment and Plan Assessment and Plan: Patient examined, Chart Reviewed. I participated in the development of the plan of care with Yovana Duarte. More alert today. Talkative. Wbc low. On G CSF. LDH better and creatinine better. Discussed with Dr. Jolly. - Time Spent With Patient Total time spent is greater than 50% in coordination of care (as documented) at patient's floor/unit and/or counseling patient:
[2017-12-24] MEDS: INSULIN ASPART 100unit/ml INJECTION SQ PRN ×3 (12:42→23:37)
--- NOTE | 2017-12-24 12:57 | Pulmonology Progress Note ---
Subjective Principal diagnosis: pneumonia Interval history: looking somewhat better awake and talkative. trying to take PO breathing is stable Exam Vital signs: Temperature 98.1 F 12/23/17 20:00 Pulse Rate 105 H 12/24/17 12:00 Respiratory Rate 16 12/24/17 11:30 Blood Pressure 111/78 12/24/17 11:00 Pulse Oximetry 99 12/24/17 11:30 Inpatient Medications: Generic Name Dose Route Start Last Admin Trade Name Freq PRN Reason Stop Dose Admin Hydrocodone Bitart/Acetaminophen 1 tab 12/07/17 11:21 12/12/17 03:02 [place] 5/325 PO 1 tab QID PRN Administration Pain Albuterol/Ipratropium 3 ml 12/07/17 16:00 12/24/17 11:29 Duoneb AEROSOL 3 ml Q4HR RANDALL Administration Allopurinol 100 mg 12/15/17 18:30 12/24/17 08:25 Zyloprim PO 100 mg DAILY RANDALL Administration Bisacodyl 10 mg 12/07/17 12:53 Dulcolax RECTALLY DAILY PRN Constipation Bumetanide 1 mg 12/18/17 14:30 12/20/17 05:50 Bumex 1 Mg/4 Ml Inj. IVP 1 mg Q8H RANDALL Administration Calcium Carbonate 1,000 mg 12/23/17 12:00 12/24/17 12:35 Tums PO 1,000 mg WM RANDALL Administration Diphenhydramine HCl 50 mg 12/16/17 14:00 12/22/17 15:07 Benadryl IVP 50 mg PRN PRN Administration For reaction to chemo Fluticasone Propionate 1 spray 12/07/17 11:25 Flonase EA NOSTRIL DAILY PRN PRN orders Hydrocortisone Sodium Succinate 100 mg 12/16/17 14:00 Solu-Cortef IVP PRN PRN For reaction to chemo Dextrose 1,000 mls @ 75 mls/hr 12/23/17 11:15 12/24/17 07:00 Dextrose 5% In Water IV 75 mls/hr .[id number] RANDALL Infusion 100 mls/hr Levofloxacin/Dextrose 750 mg in 150 mls @ 100 mls/hr 12/24/17 09:00 12/24/17 10:31 Levaquin Premix IV Infused Q48H RANDALL Infusion Insulin Aspart 2 - 8 unit 12/24/17 10:27 12/24/17 12:42 Novolog SQ 3 unit SS PRN Administration Hyperglycemia Protocol Lactulose 10 gm 12/22/17 10:39 12/24/17 08:25 Lactulose PO 10 gm DAILY PRN Administration Constipation Lorazepam 0.25 mg 12/07/17 12:48 12/24/17 00:42 Ativan Inj IVP 0.25 mg Q4H PRN Administration Air hunger/Anxiety Methylprednisolone Sodium Succinate 125 mg 12/16/17 14:00 Solu-Medrol IVP PRN PRN For reaction to chemo Methylprednisolone Sodium Succinate 80 mg 12/21/17 10:24 12/24/17 08:24 Solu-Medrol IVP 80 mg Q6HR RANDALL Administration Metoclopramide HCl 10 mg 12/23/17 17:32 12/24/17 08:24 Reglan IVP 10 mg Q6H PRN Administration Morphine Sulfate 2 - 4 mg 12/19/17 10:49 12/24/17 08:24 Morphine Sulfate Inj IVP 4 mg Q2HR PRN Administration Pain Nicotine 21 mg 12/07/17 10:45 12/24/17 08:25 Nicoderm TD 21 mg DAILY RANDALL Administration Nicotine 1 removal 12/08/17 09:00 12/24/17 08:25 Nicotine Patch Removal TD 1 removal DAILY RANDALL Administration Nystatin 5 ml 12/20/17 13:00 12/24/17 12:36 Mycostatin PO 12/30/17 12:59 5 ml QID RANDALL Administration Oxymetazoline HCl 2 spray 12/20/17 11:00 12/20/17 13:25 Afrin Nasal [place] EA NOSTRIL 2 spray BID PRN Administration Bleeding Pantoprazole Sodium 40 mg 12/17/17 15:30 12/24/17 08:24 Protonix Iv IVP 40 mg DAILY RANDALL Administration Pharmacy Profile Note 5 ml 12/14/17 11:19 12/21/17 18:12 Lidocaine/Maalox/Benadryl Soln PO 5 ml Q4H PRN Administration Mouth pain Polyethylene Glycol 17 gm 12/09/17 11:00 12/24/17 08:14 Miralax PO Not Given DAILY RANDALL Sodium Chloride 2 spray 12/08/17 10:15 12/24/17 12:35 [place] Nasal Moisturizing [place] EA NOSTRIL 2 spray QID RANDALL Administration Sodium Chloride 500 ml 12/15/17 16:40 12/21/17 19:56 Normal Saline IV 500 ml PRN PRN Administration Sodium Chloride 10 - 80 ml 12/15/17 16:40 12/22/17 17:37 Iv Flush IV 10 ml PRN PRN Administration Flushing Sodium Chloride 500 ml 12/21/17 08:38 Normal Saline IV PRN PRN Sodium Chloride 500 ml 12/22/17 12:30 Normal Saline IV PRN PRN Sodium Chloride 500 ml 12/23/17 09:30 Normal Saline IV PRN PRN Tbo-Filgrastim 480 mcg 12/19/17 19:00 12/23/17 18:25 Granix SQ 480 mcg Q24H RANDALL Administration Discontinued Medications Generic Name Dose Route Start Last Admin Trade Name Freq PRN Reason Stop Dose Admin Acetaminophen 650 mg 12/11/17 10:30 12/11/17 20:30 Tylenol PO 12/11/17 10:31 325 mg O ONE Administration Albumin Human 25 g 12/17/17 15:07 12/17/17 16:01 Albumin Human IV 12/17/17 15:08 25 g Q8H ONE Administration Albumin Human 25 g 12/18/17 12:00 Albumin Human IV Q8H [facility] Albuterol/Ipratropium 3 ml 12/07/17 11:00 12/07/17 16:44 Duoneb AEROSOL Not Given RTQID [facility] Allopurinol 300 mg 12/12/17 13:45 12/17/17 08:56 Zyloprim PO Not Given DAILY [facility] Alteplase, Recombinant 2 mg 12/21/17 04:32 12/21/17 04:59 Cathflo Activase IV 12/21/17 04:33 2 mg O ONE Administration Benzonatate 100 mg 12/07/17 12:48 Tessalon Perles PO TID PRN Cough Bumetanide 1 mg 12/19/17 19:00 12/19/17 19:10 Bumex 1 Mg/4 Ml Inj. IVP 12/19/17 19:01 1 mg O ONE Administration Clotrimazole 10 mg 12/09/17 12:00 12/20/17 10:19 Mycelex Pj MM Not Given 5XD [facility] Diphenhydramine HCl 50 mg 12/09/17 10:36 12/09/17 12:51 Benadryl PO 12/09/17 10:37 50 mg ONCE ONE Administration Diphenhydramine HCl 25 mg 12/11/17 10:29 12/11/17 20:30 Benadryl PO 12/11/17 10:30 25 mg ONCE ONE Administration Diphenhydramine HCl 50 mg 12/21/17 08:38 12/21/17 18:16 Benadryl PO 12/21/17 08:39 Not Given ONCE ONE Diphenhydramine HCl 50 mg 12/22/17 12:30 12/22/17 15:05 Benadryl PO 12/22/17 12:31 Not Given ONCE ONE Furosemide 20 mg 12/11/17 10:29 12/11/17 23:59 Lasix IVP 12/11/17 10:30 20 mg O ONE Administration Furosemide 20 mg 12/12/17 14:06 12/12/17 14:47 Lasix IVP 12/12/17 14:07 20 mg ONCE ONE Administration Furosemide 20 mg 12/13/17 09:29 12/13/17 11:51 Lasix IVP 12/13/17 09:30 20 mg ONCE ONE Administration Furosemide 40 mg 12/14/17 11:19 12/14/17 12:14 Lasix IVP 12/14/17 11:20 40 mg O ONE Administration Furosemide 40 mg 12/15/17 09:29 12/15/17 11:44 Lasix IVP 12/15/17 09:30 40 mg O ONE Administration Furosemide 40 mg 12/15/17 17:41 12/15/17 18:32 Lasix IVP 12/15/17 17:42 40 mg O ONE Administration Furosemide 40 mg 12/16/17 15:13 12/16/17 15:18 Lasix IVP 12/16/17 15:14 40 mg O ONE Administration Furosemide 20 mg 12/17/17 11:44 12/17/17 12:27 Lasix IVP 12/17/17 11:45 20 mg ONCE ONE Administration Furosemide 20 mg 12/17/17 16:00 12/17/17 15:35 Lasix IVP 12/17/17 16:01 20 mg Q8H ONE Administration Furosemide 20 mg 12/21/17 08:38 12/21/17 16:07 Lasix IVP 12/21/17 08:39 20 mg O ONE Administration Cefepime HCl 1 gm/ Sodium 100 mls @ 200 mls/hr 12/07/17 08:43 12/07/17 09:33 Chloride IV 12/07/17 09:12 Infused O ONE Infusion Sodium Chloride 1,000 mls @ 1,000 mls/hr 12/07/17 08:43 12/07/17 10:08 Normal Saline IV 12/07/17 09:42 Infused .Q1H ONE Infusion Sodium Chloride 1,000 mls @ 999.9 mls/hr 12/07/17 09:13 12/07/17 11:38 Normal Saline IV 12/07/17 10:12 Infused .Q1H ONE Infusion Cefepime HCl 1 gm/ Sodium 50 mls @ 100 mls/hr 12/07/17 16:00 12/12/17 00:59 Chloride IV Not Given Q6H RANDALL Levofloxacin/Dextrose 750 mg in 150 mls @ 100 mls/hr 12/07/17 11:21 12/17/17 13:13 Levaquin Premix IV Infused Q24H RANDALL Infusion Sodium Chloride 1,000 mls @ 125 mls/hr 12/07/17 11:21 12/08/17 10:31 Normal Saline IV Infused .Q8H RANDALL Infusion Vancomycin HCl 1,250 mg/ 250 mls @ 200 mls/hr 12/08/17 02:00 12/09/17 18:58 Sodium Chloride IV Not Given Q12H RANDALL Vancomycin HCl 1,750 mg/ 500 mls @ 250 mls/hr 12/07/17 14:00 12/07/17 15:00 Sodium Chloride IV 12/07/17 14:01 Infused O ONE Infusion Sodium Chloride 500 mls @ 500 mls/hr 12/08/17 03:40 12/08/17 03:40 Normal Saline IV 12/08/17 04:39 Not Given .Q1H ONE Sodium Chloride 500 mls @ 500 mls/hr 12/08/17 05:30 12/08/17 05:17 Normal Saline IV 12/08/17 06:30 Not Given .Q1H RANDALL Potassium Chloride 20 meq/ 1,014.5455 mls @ 75 mls/hr 12/08/17 09:45 13:00 Potassium Phosphate 20 meq/ IV 0 mls/hr Sodium Chloride .[id number] RANDALL Infusion Potassium Chloride 20 meq/ 1,014.5455 mls @ 50 mls/hr 12/09/17 11:00 12:05 Potassium Phosphate 20 meq/ IV Infused Sodium Chloride .[id number] RANDALL Infusion Vancomycin HCl 1,750 mg/ 500 mls @ 250 mls/hr 12/09/17 14:00 12/12/17 08:00 Sodium Chloride IV 12/12/17 07:30 Not Given Q12H RANDALL Sodium Chloride 1,000 mls @ 500 mls/hr 12/10/17 16:53 12/10/17 19:30 Normal Saline IV 12/10/17 18:52 Infused .Q2H ONE Infusion Sodium Chloride 1,000 mls @ 75 mls/hr 12/11/17 18:00 12/12/17 14:46 Normal Saline IV Infused .[id number] RANDALL Infusion Sodium Chloride 500 mls @ 250 mls/hr 12/11/17 15:45 12/11/17 18:20 Normal Saline IV 12/11/17 17:44 Infused .Q2H RANDALL Infusion Vancomycin HCl 1,750 mg/ 500 mls @ 250 mls/hr 12/13/17 08:00 Sodium Chloride IV 12/13/17 08:00 Q24H RANDALL Sodium Bicarbonate 100 meq/ 1,100 mls @ 75 mls/hr 12/12/17 14:00 12/13/17 12: 30 Dextrose IV Infused .[id number] RANDALL Infusion Vancomycin HCl 1,250 mg/ 250 mls @ 200 mls/hr 12/14/17 08:00 12/14/17 11:00 Sodium Chloride IV Infused Q48H RANDALL Infusion Zoledronic Acid 3 mg in 75 mls @ 150 mls/hr 12/13/17 12:00 12/13/17 14:59 Zometa IV 12/13/17 12:29 Infused O ONE Infusion Sodium Bicarbonate 100 meq/ 1,100 mls @ 100 mls/hr 12/13/17 12:30 12/16/17 12 :04 Dextrose IV Not Given .Q11H RANDALL Cefepime HCl 1 gm/ Sodium 100 mls @ 200 mls/hr 12/14/17 19:30 12/15/17 01:35 Chloride IV Infused Q6H RANDALL Infusion Cefepime HCl 1 gm/ Sodium 50 mls @ 200 mls/hr 12/15/17 09:00 12/17/17 09:25 Chloride IV Infused Q6HR RANDALL Infusion Vancomycin HCl 1,000 mg/ 250 mls @ 250 mls/hr 12/15/17 12:00 12/16/17 14:11 Sodium Chloride IV 12/17/17 11:59 Infused Q24H RANDALL Infusion Dextrose/Sodium Chloride 1,000 mls @ 75 mls/hr 12/15/17 13:30 12/19/17 14:00 D5-1/2ns IV Infused .[id number] RANDALL Infusion Dexamethasone 10 mg/ Sodium 52.5 mls @ 210 mls/hr 12/16/17 14:00 12/16/17 14: 39 Chloride IV 12/16/17 14:14 Infused O ONE Infusion Carboplatin 377 mg/ Dextrose 287.7 mls @ 250 mls/hr 12/16/17 14:30 12/16/17 16:00 IV 12/16/17 15:39 Infused O ONE Infusion Etoposide 100 mg/ Sodium 505 mls @ 125 mls/hr 12/16/17 15:30 12/16/17 20:00 Chloride IV 12/16/17 19:32 Infused O ONE Infusion Dexamethasone 10 mg/ Sodium 52.5 mls @ 150 mls/hr 12/17/17 14:00 12/17/17 14: 42 Chloride IV 12/17/17 14:20 Infused O ONE Infusion Etoposide 100 mg/ Sodium 505 mls @ 125 mls/hr 12/17/17 14:30 12/17/17 19:00 Chloride IV 12/17/17 18:32 Infused O ONE Infusion Vancomycin HCl 1,000 mg/ 250 mls @ 250 mls/hr 12/18/17 00:01 12/21/17 01:28 Sodium Chloride IV 12/21/17 11:00 Infused Q36H RANDALL Infusion Cefepime HCl 1 gm/ Sodium 50 mls @ 100 mls/hr 12/17/17 17:00 12/18/17 09:01 Chloride IV 100 mls/hr Q8HR RANDALL Administration Levofloxacin/Dextrose 750 mg in 150 mls @ 100 mls/hr 12/19/17 09:00 12/19/17 12:15 Levaquin Premix IV Infused Q48H RANDALL Infusion Dexamethasone 10 mg/ Sodium 52.5 mls @ 150 mls/hr 12/18/17 14:00 12/18/17 14: 38 Chloride IV 12/18/17 14:20 Infused O ONE Infusion Etoposide 100 mg/ Sodium 505 mls @ 125 mls/hr 12/18/17 14:30 12/18/17 14:38 Chloride IV 12/18/17 18:32 125 mls/hr O ONE Administration Albumin Human 100 mls @ 50 mls/hr 12/18/17 12:00 12/21/17 05:19 Albumin Human 25 Gm IV Infused Q8H R[facility]ALL Infusion Cefepime HCl 1 gm/ Sodium 50 mls @ 100 mls/hr 12/18/17 21:00 12/21/17 09:18 Chloride IV 12/21/17 11:00 Infused Q12H R[facility]ALL Infusion Potassium Chloride 40 meq/ 520 mls @ 100 mls/hr 12/19/17 13:00 12/19/17 19:00 Dextrose IV 12/19/17 18:11 100 mls/hr .[id number] RANDALL Infusion Potassium Chloride 40 meq/ 1,020 mls @ 100 mls/hr 12/21/17 10:00 12/23/17 07: 07 Dextrose IV Infused .[id number] RANDALL Infusion Albumin Human 50 mls @ 50 mls/hr 12/21/17 12:00 12/23/17 05:20 Albumin Human 12.5 Gm IV Infused Q8H RANDALL Infusion Rasburicase 3 mg/ Sodium 50 mls @ 100 mls/hr 12/21/17 14:30 12/21/17 19:51 Chloride IV 12/21/17 14:59 Infused O ONE Infusion Dextrose/Sodium Chloride 1,000 mls @ 75 mls/hr 12/22/17 18:45 12/23/17 11:56 D5-1/2ns IV Infused .[id number] RANDALL Infusion Calcium Gluconate 1,000 mg/ 60 mls @ 200 mls/hr 12/23/17 18:32 12/23/17 19:52 Sodium Chloride IV 12/23/17 18:49 Infused O ONE Infusion Insulin Aspart 1 - 5 unit 12/21/17 09:19 12/23/17 23:28 Novolog SQ 2 unit SS PRN Administration Hyperglycemia Protocol Magnesium Hydroxide 30 ml 12/07/17 12:53 Mom PO DAILY PRN Constipation Methylprednisolone Sodium Succinate 125 mg 12/15/17 15:30 12/21/17 08:50 Solu-Medrol IVP 125 mg Q6HR RANDALL Administration Metoclopramide HCl 5 mg 12/17/17 14:30 12/19/17 10:58 Reglan Not Given Q6H R[facility] Morphine Sulfate 2 mg 12/07/17 12:47 12/14/17 10:38 Morphine Sulfate Inj IVP 2 mg Q2HR PRN Administration Pain Morphine Sulfate 4 mg 12/14/17 11:20 12/19/17 09:54 Morphine Sulfate Inj IVP 4 mg Q2HR PRN Administration Pain Ondansetron HCl 4 mg 12/07/17 11:21 12/23/17 16:20 Zofran IVP 4 mg Q6H PRN Administration Nausea Palonosetron 0.25 mg 12/16/17 14:00 12/16/17 14:04 Aloxi IV 12/16/17 14:01 0.25 mg O ONE Administration Pharmacy Consult 1 each 12/11/17 11:34 Pharmacy Consult - Fall Risk XX 12/11/17 11:35 ONE TIME ONE Pharmacy Consult 1 each 12/19/17 17:12 Pharmacy Consult - Fall Risk XX 12/19/17 17:13 ONE TIME ONE Potassium Chloride 20 meq 12/12/17 13:58 12/12/17 14:14 K-Dur 20 Meq Tablet PO 12/12/17 13:59 20 meq O ONE Administration Potassium Chloride 20 meq 12/13/17 12:30 12/19/17 10:58 K-Dur 20 Meq Tablet PO Not Given BIDWM RANDALL Promethazine HCl/Codeine 5 ml 12/07/17 12:49 Phenergan + Codeine PO Q6HR PRN Cough Rasburicase 3 mg 12/21/17 13:35 12/21/17 18:17 Elitek IV 12/21/17 13:36 Not Given O ONE Sodium Chloride 10 - 80 ml 12/07/17 08:43 12/20/17 15:18 Iv Flush IVF 40 ml PRN PRN Administration Flushing Sodium Chloride 500 ml 12/07/17 11:24 12/10/17 16:47 Normal Saline IV 500 ml PRN PRN Administration Sodium Chloride 500 ml 12/09/17 10:36 12/11/17 08:14 Normal Saline IV 500 ml PRN PRN Administration Sodium Chloride 500 ml 12/10/17 16:57 Normal Saline IV PRN PRN Sodium Chloride 500 ml 12/11/17 10:29 Normal Saline IV PRN PRN Sodium Chloride 500 ml 12/13/17 09:27 Normal Saline IV PRN PRN Sodium Chloride 500 ml 12/13/17 10:04 Normal Saline IV PRN PRN Sodium Chloride 500 ml 12/15/17 09:29 Normal Saline IV PRN PRN Spironolactone 12.5 mg 12/13/17 09:30 12/13/17 11:51 Aldactone PO 12/13/17 09:31 12.5 mg ONE TIME ONE Administration Vancomycin HCl 1 each 12/07/17 11:09 Pharmacy Consult - Vancomycin 12/07/17 11:10 O ONE Vancomycin HCl 1 each 12/07/17 11:21 Pharmacy Consult - Vancomycin 12/07/17 11:22 O ONE - Constitutional no acute distress, cachectic - Routine HEENT Exam Head: Present: normocephalic - Routine Neck Exam Present: supple - Routine Respiratory Exam Present: decreased breath sounds. Absent: accessory muscle use - Routine Cardiovascular Exam Present: RRR - Urinary Catheter Management Urethral Cath placed during this visit: yes Urethral indwelling: Yes Insertion date: 12/07/17 Insertion time: 19:45 Results - Laboratory Findings Laboratory: Laboratory Results - last 48 hr 12/22/17 12/22/17 12/22/17 00:26 05:39 12:31 WBC RBC Hgb Hct MCV MCH MCHC RDW Std Deviation Plt Count MPV Neutrophils % (Manual) Lymphocytes % (Manual) Neutrophils # (Manual) Lymphocytes # (Manual) Poikilocytosis Anisocytosis Tear Drop Cells Ovalocytes Helmet Cells Schistocytes RBC Morph Comment Turbidity Sodium Potassium Chloride Carbon Dioxide Anion Gap BUN Creatinine GFR Calculation BUN/Creatinine Ratio Glucose Glucometer 214 155 Calculated Osmolality Uric Acid Calcium Phosphorus Icterus Index Lactate Dehydrogenase C-Reactive Protein Albumin Specimen Hemolysis Blood Product Request 1 unit ppp issued 12/22/17 12/22/17 12/22/17 16:04 17:30 17:30 WBC RBC Hgb Hct MCV MCH MCHC RDW Std Deviation Plt Count 15 L* D MPV Neutrophils % (Manual) Lymphocytes % (Manual) Neutrophils # (Manual) Lymphocytes # (Manual) Poikilocytosis Anisocytosis Tear Drop Cells Ovalocytes Helmet Cells Schistocytes RBC Morph Comment Turbidity < 20 Sodium 151 H Potassium 4.2 Chloride 112 H Carbon Dioxide 21 L Anion Gap 18 H BUN 105.0 H* Creatinine 2.5 H GFR Calculation 27 BUN/Creatinine Ratio 42 H Glucose 226 H Glucometer 248 Calculated Osmolality 330 H Uric Acid Calcium 5.3 L* Phosphorus Icterus Index < 2 Lactate Dehydrogenase C-Reactive Protein Albumin Specimen Hemolysis < 15 Blood Product Request 12/22/17 12/23/17 12/23/17 22:43 04:12 04:12 WBC 0.1 L* D RBC 2.31 L Hgb 7.1 L Hct 21.4 L MCV 92.6 MCH 30.7 MCHC 33.2 RDW Std Deviation 68.3 H Plt Count 9 L* D MPV 9.3 L Neutrophils % (Manual) 24.0 L Lymphocytes % (Manual) 76.0 H Neutrophils # (Manual) 0.0 L Lymphocytes # (Manual) 0.1 L Poikilocytosis 2+ Anisocytosis 2+ Tear Drop Cells 1+ Ovalocytes 1+ Helmet Cells 1+ Schistocytes RBC Morph Comment Abnormal Turbidity < 20 Sodium 149 H Potassium 4.1 Chloride 112 H Carbon Dioxide 22 Anion Gap 15 BUN 103.0 H* Creatinine 2.5 H GFR Calculation 27 BUN/Creatinine Ratio 41 H Glucose 237 H Glucometer 197 Calculated Osmolality 326 H Uric Acid 7.1 Calcium 5.3 L* Phosphorus 6.0 H Icterus Index < 2 Lactate Dehydrogenase 3493 H C-Reactive Protein 58.6 H Albumin 3.1 L Specimen Hemolysis < 15 Blood Product Request 12/23/17 12/23/17 12/23/17 05:03 10:28 13:55 WBC RBC Hgb Hct MCV MCH MCHC RDW Std Deviation Plt Count MPV Neutrophils % (Manual) Lymphocytes % (Manual) Neutrophils # (Manual) Lymphocytes # (Manual) Poikilocytosis Anisocytosis Tear Drop Cells Ovalocytes Helmet Cells Schistocytes RBC Morph Comment Turbidity Sodium Potassium Chloride Carbon Dioxide Anion Gap BUN Creatinine GFR Calculation BUN/Creatinine Ratio Glucose Glucometer 253 223 Calculated Osmolality Uric Acid Calcium Phosphorus Icterus Index Lactate Dehydrogenase C-Reactive Protein Albumin Specimen Hemolysis Blood Product Request 1 unit ppp issued 12/23/17 12/23/17 12/23/17 16:18 16:33 17:56 WBC RBC Hgb Hct MCV MCH MCHC RDW Std Deviation Plt Count 16 L* D MPV Neutrophils % (Manual) Lymphocytes % (Manual) Neutrophils # (Manual) Lymphocytes # (Manual) Poikilocytosis Anisocytosis Tear Drop Cells Ovalocytes Helmet Cells Schistocytes RBC Morph Comment Turbidity < 20 Sodium 143 D Potassium 3.7 Chloride 108 H Carbon Dioxide 20 L Anion Gap 15 BUN 97.0 H* Creatinine 2.3 H D GFR Calculation 30 BUN/Creatinine Ratio 42 H Glucose 395 H Glucometer 205 Calculated Osmolality 321 H Uric Acid Calcium 5.0 L* Phosphorus 5.4 H Icterus Index < 2 Lactate Dehydrogenase C-Reactive Protein Albumin 2.9 L Specimen Hemolysis < 15 Blood Product Request 12/23/17 12/24/17 12/24/17 23:15 04:01 04:01 WBC 0.1 L* RBC 2.47 L Hgb 7.5 L Hct 23.0 L MCV 93.1 MCH 30.4 MCHC 32.6 RDW Std Deviation 67.8 H Plt Count 14 L* MPV 11.6 Neutrophils % (Manual) 10.0 L Lymphocytes % (Manual) 90.0 H Neutrophils # (Manual) 0.0 L Lymphocytes # (Manual) 0.1 L Poikilocytosis 2+ Anisocytosis 2+ Tear Drop Cells 1+ Ovalocytes 1+ Helmet Cells 1+ Schistocytes 1+ RBC Morph Comment Abnormal Turbidity < 20 Sodium 151 H D Potassium 3.7 Chloride 113 H Carbon Dioxide 21 L Anion Gap 17 H BUN 103.0 H* Creatinine 2.4 H GFR Calculation 28 BUN/Creatinine Ratio 43 H Glucose 171 H Glucometer 235 Calculated Osmolality 326 H Uric Acid 6.6 Calcium 5.4 L* Phosphorus 5.6 H Icterus Index < 2 Lactate Dehydrogenase 3334 H C-Reactive Protein Albumin 3.1 L Specimen Hemolysis < 15 Blood Product Request 12/24/17 12:41 WBC RBC Hgb Hct MCV MCH MCHC RDW Std Deviation Plt Count MPV Neutrophils % (Manual) Lymphocytes % (Manual) Neutrophils # (Manual) Lymphocytes # (Manual) Poikilocytosis Anisocytosis Tear Drop Cells Ovalocytes Helmet Cells Schistocytes RBC Morph Comment Turbidity Sodium Potassium Chloride Carbon Dioxide Anion Gap BUN Creatinine GFR Calculation BUN/Creatinine Ratio Glucose Glucometer 214 Calculated Osmolality Uric Acid Calcium Phosphorus Icterus Index Lactate Dehydrogenase C-Reactive Protein Albumin Specimen Hemolysis Blood Product Request - Diagnostic Findings Chest x-ray: report reviewed Assessment and Plan (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 overall clinically stable continue supportive respiratory care Current Visit: Yes (2) Acute hypoxemic respiratory failure Status: Acute Assessment and plan: continue O2, neb treatments IS as tolerated Current Visit: Yes - Assessment and Plan Acute Hypoxic Respiratory Failure RUL pneumonia Right pleural effusion - improved Met Cancer - Neuroendocrine mixed small and large cell malignant process with lesions and lung, liver, bone, RA/Immune compromised - Imuran/Enbrel at home Pancytopenia - 2/2 chemo Sepsis - resolved Likely COPD/Tobaccoism Dysphagia - alt diet - Time Spent With Patient Total time spent is greater than 50% in coordination of care (as documented) at patient's floor/unit and/or counseling patient: less than 15 minutes
[2017-12-24] MEDS ORDERED: CALCIUM GLUCONATE 1,000 MG in NS 50 ML IV ONE ×2 (16:29→19:13)
[2017-12-24] MEDS ORDERED: POTASSIUM CHLORIDE PREMIX 10 MEQ/100 ML BAG IV SCH (16:45)
[2017-12-24] MEDS: SODIUM BICARBONATE 50 MEQ in D5W 1,000 ML IV SCH (17:09)
[2017-12-24] MEDS: POTASSIUM CHLORIDE INJ 10 MEQ in NS 100 ML IV SCH ×2 (17:44→19:01)
[2017-12-24] MEDS: TBO-FILGRASTIM 480mcg/0.8ml INJECTION SQ SCH (19:20)
[2017-12-24] MEDS: NS FLUSH BAG 500ml IV PRN (20:04)
[2017-12-24] MEDS: SALINE FLUSH 10ml SYRINGE IV PRN (21:21)
[2017-12-25] MEDS: METHYLPREDNISOLONE SOD SUCC 125mg/2ml INJECTION IVP SCH ×3 (02:06→18:28)
[2017-12-25] MEDS: SALINE FLUSH 10ml SYRINGE IV PRN ×2 (02:07→08:57)
[2017-12-25] MEDS: ALBUTEROL/IPRATROPIUM 2.5mg-0.5mg/3ml NEB AEROSOL SCH ×6 (03:10→23:08)
[2017-12-25] MEDS: MORPHINE SULFATE 4mg INJECTION IVP PRN (03:44)
[2017-12-25] MEDS ORDERED: NS FLUSH BAG 500ml IV PRN (06:53)
[2017-12-25] MEDS: SODIUM BICARBONATE 50 MEQ in D5W 1,000 ML IV SCH ×2 (07:17→18:36)
[2017-12-25] MEDS: NYSTATIN 500,000 units/5 ml ORAL LIQUID PO SCH ×4 (08:26→20:21)
[2017-12-25] MEDS: PANTOPRAZOLE 40 MG INJECTION IVP SCH (08:27)
[2017-12-25] MEDS: CALCIUM CARBONATE Chewable 500mg TABLET PO SCH ×3 (08:29→18:29)
[2017-12-25] MEDS: ALLOPURINOL 100 MG TABLET PO SCH (08:29)
[2017-12-25] MEDS: NICOTINE PATCH REMOVAL TD SCH (08:31)
[2017-12-25] MEDS: NICOTINE 21 MG PATCH TD SCH (08:31)
[2017-12-25] MEDS: POLYETHYL GLYCOL 3350 17gm PACKET PO SCH (08:31)
[2017-12-25] MEDS: SALINE 0.65% NASAL SPRAY 44 ML BOTTLE EA NOSTRIL SCH ×4 (08:32→20:21)
--- NOTE | 2017-12-25 08:34 | Progress Note ---
- Date 12/25/17 Subjective: The patient was seen this morning in his room accompanied by his nurse. He did not tolerate the BiPAP for any length of time last night. The patient also states he was having bad dreams last night and thinks it's due to the morphine. He states he does not want to take morphine anymore. He denies any pain currently, but he does complain of some shortness of breath. He does feel hungry this morning. He has a Rivas in place and continues to have good urine output. He has not had any vomiting overnight but did have some retching when I was in the room. No bleeding issues overnight. Objective Vital signs: Temperature 97.5 F 12/25/17 04:00 Pulse Rate 108 H 12/25/17 06:00 Respiratory Rate 14 12/25/17 06:58 Blood Pressure 131/90 H 12/25/17 06:00 Pulse Oximetry 95 12/25/17 06:58 Rhythm: Normal Sinus Rhythm, Sinus Tachycardia Height/Weight/BMI: Height 1.7 m Weight 81.6 kg Body Mass Index 28.2 Comments: I&O equals 2263/976 Afebrile, heart rate 100 to 1:30, blood pressure 131/90, O2 sat 95% on 12 L GEN-8, mildly confused, no acute distress HEENT-sclera anicteric, pupils are equal, oropharynx is moist. He has some bruising on the soft palate. NECK-supple CV-tachycardic rate with irregular rhythm CHEST-clear to auscultation anteriorly ABD-soft, moderately distended, nontender, positive bowel sounds -Rivas in place with good urine output EXT-3-4+ edema in all 4 extremities, unchanged except for less edema in the left hand since it has been propped up NEURO-no skin for generalized weakness, fine tremors in the arms are present today SKIN-warm and dry Results - Labs CBC & Chem 7: 12/25/17 04:03 12/25/17 04:03 Labs: Anion gap is 19 which is up from 18 yesterday. Calcium is 5.6 up from 5.1 yesterday. Phosphorus is 5.0 down from 5.5 yesterday. Magnesium is normal at 2.0. Albumin is 2.9. Uric acid is normal at 6.2. Microbiology Results: Microbiology 12/10/17 15:57 Peripheral/Iv Start Blood Culture - Final No Growth After 5 Days 12/10/17 16:00 Peripheral/Iv Start Blood Culture - Final No Growth After 5 Days 12/07/17 12:45 Sputum, Expectorated Gram Stain - Final 12/07/17 12:45 Sputum, Expectorated Sputum Culture - Final Pseudomonas aeruginosa Haemophilus influenzae Staphylococcus aureus Normal Resp Pallavi incl. Yeast 12/07/17 18:13 Urine Legionella Urinary Antigen - Final 12/07/17 18:13 Urine Streptococcus pneumoniae Antigen (M - Final - Impressions Chest x-ray official report is pending but no significant change on my read with persistent consolidation and mass in the right perihilar/right upper lobe. Assessment and Plan (1) Septic shock Current visit: Yes Status: Acute (2) Pneumonia Current visit: Yes Status: Acute (3) Neuroendocrine carcinoma metastatic to liver Problem details: Lung/liver/bone involvement Current visit: Yes Status: Acute Assessment and Plan: IMPRESSION Sepsis secondary to Right sided pneumonia Septic shock based on lactate of 4.5 (per CMS) Severe sepsis based on 2016 Surviving Sepsis Guidelines Organ dysfunction = MAP <70, hyperbilirubinemia (2.4), thrombocytopenia ( 16) SOFA on admission = 7, presumed baseline of 0 Pneumonia -right upper lobe and right lower lobe-sputum positive for Pseudomonas , Haemophilus, and MSSA; Completed 14 days of cefepime, Levaquin, and vancomycin on 12/20. 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 Chemotherapy 12/16- for neuroendocrine malignancy. Pancytopenia (POA) including platelet count of 16, WBC 3.7, and hgb of 8.9 on admission Hyperbilirubinemia, elevated AST and Alk phos, POA Hypercalcemia-Zometa given 12/13--> hypocalcemia Hypoalbuminemia-improved with albumin IV Elevated LDH Elevated CRP and procalcitonin, secondary to acute infection Severe PCM - prealbumin undetectable Thrush Macrocytic anemia Rheumatoid arthritis-Imuran/Enbrel Acute on chronic Hyponatremia (POA) (baseline 131-134)-resolved Hypokalemia-12/19/17 Epistaxis, minor-12/20/17, resolved Pupil asymmetry noted 12/20, CT head without acute pathology. Immunocompromised pt-neutropenic, recent chemotherapy-start Levaquin prophylactically on 12/24/2017 Encephalopathy-improving Sinus tachycardia Dysphagia-speech therapy consulted Volume overload/anasarca-the patient is intravascularly dry and will need to continue IV fluids for now. Give IV albumin if albumin level decreasing Hypernatremia-12/21/17 Metabolic acidosis-12/21/17 Acute Hypoxia respiratory failure-currently on 12 L; BiPAP when necessary initiated 12/18 LIEN-with good urine output Hypocalcemia without symptoms-given IV calcium gluconate 2 g yesterday. Oral calcium initiated. Vitamin D levels pending Hyperuricemia -received rasburicase IV and uric acid level now normal Hyperglycemia secondary to steroids and D5W 12/25/2017 PLAN Clinically the patient appears stable. He continues to have good urine output without diuretics or albumin. BUN and creatinine remain elevated at 103 and 2.4 respectively. Patient continues to have fairly severe pancytopenia and white count today is 0. Hemoglobin 7.2. Platelets are 5. Fortunately, he has not had any bleeding overnight. By mouth intake is intermittent and we are encouraging increased caloric intake. Unable to place Dobbhoff. We'll start a multivitamin once daily. Due to nightmares, we'll discontinue morphine at patient's request. We'll have when necessary Dilaudid available if needed. Remains on methylprednisolone and breathing treatments for respiratory failure, consider decreasing steroids. Chest x-ray is slowly improving. Dependent on high flow oxygen/BiPAP. Continue G-CSF (initiated 12/19). Neutropenic precautions initiated 12/21. Remains pancytopenic, requires blood products intermittently-give platelets today for platelet count of 5 Uric acid normalized-continue allopurinol. Hypocalcemia without symptoms-give IV calcium again today. Oral calcium initiated. Vitamin D levels pending Regarding hypernatremia and metabolic acidosis, continue D5W with 1 amp of bicarbonate Recheck renal panel later today. Would give intermittent IV Bumex if needed for worsening urine output or hypoxia. Nystatin suspension for management of thrush while neutropenic. Encourage oral nutrition, speech therapy has been consulted. Continue daily CBC and renal panel. Continue sliding scale insulin for hyperglycemia The patient is critically ill. Greater than 45 minutes of critical care time spent seeing and evaluating the patient, determining care plan Prognosis remains guarded. GI Prophylaxis: Protonix Resuscitation Status: Do Not Resuscitate - Physician Narrative Physician: Didi Jolly MD Narrative: Date: 12/25/17 Time: 0830 Hospital Course Summary Disclaimer: The visit summary below is not to be considered part of the above Progress Note. Hospital Course: 12/07/17 Admit, inpatient status, to CCU; Patient is critically ill. Dr. Vivar attending. Septic shock based on CMS and Severe Sepsis based on Surviving Sepsis He received full 30 mL/kg bolus in ED. If unable to keep MAP >65, will need to start norepinephrine, which would indicate shock based on 2016 rec. Initial lactate was 4.5; if lactate is still elevated >4 on recheck, this would also indicate shock based on 2016 recommendations. Blood cultures already drawn. Repeat physical exam done. Repeat procalcitonin in am. Sinus tachycardia has improved after fluid boluses, from 138-105. Right sided pneumonia in an immunocompromised patient with significant smoking history. Cefepime was started in the ED -- will continue with this and add vancomycin and levofloxacin d/t immunocompromised state. Check for strep pneumo and legionella. Check sputum culture. Consult Dr. Mckinney; suspect he may require additional respiratory intervention and with smoking hx likely has underlying COPD. Acapella, DuoNeb. Ask RT to provide tobacco cessation information. Nicotine patch ordered. Hold RA medications including Enbrel & Imuran. Pancytopenia Suspect d/t sepsis. If no improvement in next few days consider heme consultation. Platelets only 16 on admission. Will give platelet pack x1. Lovenox is contraindicated. SCD for DVT prevention. Macrocytic anemia - check iron studies, folate, vitamin B12. Hyperbilirubinemia Suspect d/t sepsis. Hepatomegaly and RUQ tenderness. He had liver sonogram in Aug, 2017 which was normal. Check INR. Hyponatremia and hypercalcemia Suspect d/t dehydration. Continue IVF and check in am. Advanced directives None. Requests full resuscitation. 12/08/17 Continue with levofloxacin, cefepime and vancomycin for pulmonary coverage. Neb treatments and acapella to continue. Monitor saturations and work of breathing - on 2L currently. Will have speech check swallow secondary to coughing with swallow. Hemoglobin decreased to 6.7 - transfusion initiated. Iron/B12/Folate tests pending. Platelets increased to 30K. Monitor. No Lovenox due to thrombocytopenia. Sodium with slight improvement to 128, but potassium decreased to 3.7. Will change IVF to NS with 20KCl and 20KPhos and decrease rate to 75cc/hr. BP improved. Recheck CMP, Mg, Phos, Procalcitonin, and CBC secondary to resolving septic shock. Continues to need close nursing care and support, continue CCU monitoring. 12/09/17 Continue with levofloxacin, cefepime and vancomycin for pulmonary coverage. Neb treatments and acapella to continue. Monitor saturations and work of breathing - on 2L currently. Start Mycelex lola for thrush. Speech check recommends pureed diet as very difficult to chew foods - may need to upgrade is not liking pureed consistency. Platelets decreased to 20K. Monitor. Give platelet pack. Hemoglobin improved to 8.2 post transfusion yesterday. Sodium improvement to 134, with potassium and phos normal at 4.2 and 4.3 respectively. Continue IVF to NS with 20KCl and 20KPhos but decrease rate to 50cc/hr. BP improved. HR still in 115 range. Start Bladder retraining - possible discontinue Rivas in near future. Start Miralax daily to help bowel function - hold with loose stool. PT/OT consult to help improve strength. Can transfer to medical floor for continuation of care. 12/10/17 The patient became confused last night and was pulling off his oxygen and pulled out his IV. He is more calm at this time but is still confused. With his severity of illness, will transfer back to intensive care when a bed is open. In the meantime will have his nurse stay close to his room and obtain continuous oximetry. Dr. Galarza was called and consulted regarding his pancytopenia. We'll check PTH regarding hypercalcemia. His hypercalcemia is likely worse than it appears since he also has hypoalbuminemia. Hold IV fluids for now. He is 9 L up on fluids. May require diuresis. Continue Rivas catheter for now. Check ammonia level regarding altered mental status. Continue with levofloxacin, cefepime and vancomycin for pneumonia with immunosuppression. Neb treatments and acapella to continue. Monitor saturations and work of breathing - now requiring 4 L PT/OT consult. 12/11/17 The patient had recurrence of elevated lactate yesterday despite continued treatment with triple antibiotics. Heart rate was back up to 130. The patient was given IV fluids. This morning hemoglobin is dropped to 7.9 and platelets are 18,000. Discussed with Dr. Galarza and we will give 1 platelet pack and 1 unit of blood. There is concern for occult malignancy and we will obtain a CT head, chest, abdomen and pelvis all without contrast today. Regarding his elevated calcium, PTH was low. Await results of CAT scans. Regarding Pseudomonas and MSSA pneumonia, continue Levaquin. Stop cefepime. Continue vancomycin for now until blood cultures have returned. 12/12/17 Continue levofloxacin and vancomycin for antimicrobial coverage. Dr Galarza considering initiation of chemotherapy. Discussed with Dr Galarza about patient significantly declined status-concern currently too ill to start chemo. Worry that a large component of patient's acute problems are due to his cancerous process - uncertain if will make much gains without treating cancer, but uncertain how well he could tolerate chemo. Ultimately decided to wait until final path report returns before initiating chemo. Dr Galarza starting treatments to help protect from tumor lysis. IVF change to D5W with 2amps Bicarb at 75cc/hr to alkalinize urine. 12/13/17 More somnolent and weak this afternoon. Oral drive decreased. Continue levofloxacin and vancomycin for antimicrobial coverage. Increase rate of D5W with 2amps Bicarb to 100 cc/hr. Did give Lasix 20mg IV to help minimize edema and increase urine output. Zometa initiated by Dr Galarza to help hypercalcemia. Cautious oral intake secondary to somnolence. Continue pain control. Restart cefepime due to worsening pneumonia. 12/14/17 Dr Samayoa discussed with family - with small cell cancer, only hope for survival is chemotherapy. With patient's significant decline, uncertain if pt could survive chemo. Will continue with antimicrobial therapy. Add Solu-Medrol to try to decrease pulmonary inflammation. Platelet transfusion given due to declining platelets of 15. IVF changed to D5 1/2NS at 75. Lasix given earlier to help motivate fluid. Will repeat dose this evening. 12/15/17 More somnolent today. Speech evaluated patient-recommends NPO (to somnolent and weak to attempt swallow). O2 needs increasing - 6L. Creatine with increase to 1.5, urine output decreasing. Platelets 27 after 2 platelet pack transfusion yesterday. HGB 7.9. Oncology planning chemotherapy this afternoon - high risk for complications, but not likely to survive without treating his cancer. Discussed with about code status. Would recommend DNR as if patient would arrest, feel resuscitative measures would be futile. needs to discuss with family about this. Will continue with antimicrobial therapy and Solu-Medrol. 12/16/17 Oncology planning chemotherapy this afternoon - high risk for complications, but not likely to survive without treating his cancer. Discussed with about code status. Would recommend DNR as if patient would arrest, feel resuscitative measures would be futile. needs to discuss with family about this. Will continue with antimicrobial therapy and Solu-Medrol. 12/17/17 Family has elected to convert to DO NOT RESUSCITATE status. Chemotherapy initiated with etoposide and carboplatin; platelets being given today for count of 20. Ongoing antibiotic therapy-day 11. Persistent dysphasia with minimal oral intake, Dobbhoff to be placed. 12/18/17 Persistent pancytopenia; day 3 chemotherapy, day 12 triple antibiotics for sepsis. Oxygen demand increasing, creatinine climbing-converted to Bumex with albumin to attempt to diurese. Chest x-ray with increasing pleural effusions and pulmonary edema. Unable to place Dobbhoff and volume status precludes TPN. Prognosis guarded at best. 12/19/17 Date 13 antibiotics with cefepime, Levaquin, and vancomycin. Remains on high dose methylprednisolone for respiratory distress. Dependent on high flow oxygen/BiPAP. Chemotherapy 12/16-12/18 for neuroendocrine malignancy. G-CSF initiated 12/19. Remains pancytopenic, 1 unit packed red blood cells today. Will require platelets if any evidence of blood loss. Anticipate platelet transfusion tomorrow. Calcium stable following treatment. Urine output improving with albumin/Bumex; BUN climbing-continue regimen today but may not be able to continue if uremia progresses. IV fluids discontinued; supplement potassium IV due to inability to take oral medications. Repeat chest x-ray in a.m. 12/20/17 Remains pancytopenic, 1 unit packed red blood cells yesterday. Platelet pack today; Afrin nasal spray as needed for minor epistaxis-no ongoing bleeding this morning. Pupil asymmetry not previously present-mental status has not deteriorated compared to yesterday or the prior day and if anything patient may be slightly more alert but with thrombocytopenia will require CT head. Will also image abdomen/pelvis due to persistent/increasing abdominal pain to exclude intra-abdominal bleed. No contrast to be given. Calcium stable following treatment. Urine output improved with albumin/Bumex; however BUN climbing. Continue albumin but will hold Bumex today. Mycelex troches discontinued nursing request, will coated tongue with nystatin suspension for management of thrush will remains on antibiotics or neutropenic. 12/21/17 Completed 14 days of cefepime, Levaquin, and vancomycin on 12/20. Remains on high dose methylprednisolone for respiratory distress. Dependent on high flow oxygen/BiPAP. Chest x-ray/exam slightly improved from pulmonary perspective. Chemotherapy 12/16-12/18 for neuroendocrine malignancy. G-CSF initiated 12/19. Neutropenic precautions initiated 12/21. Remains pancytopenic, requires blood products intermittently-will receive packed red blood cells and platelets today. Pupil asymmetry noted yesterday, CT head without acute pathology. Will discuss MRI brain with Dr. Galarza. Abdominal imaging yesterday compatible with volume overload/anasarca but no evidence of acute intra-abdominal process or hemorrhage. Sodium climbing and potassium down with attempted diuresis-D5 with KCl initiated , electrolytes to be reevaluated later in the day. Diuretics discontinued yesterday, albumin infusions decreased to 12.5 g every 8 hours. 12/22/17 Remains pancytopenic, requires blood products intermittently-will receive platelets again today. Uric acid slightly better today after IV dose of Rasburicase yesterday-redose tomorrow if no further improvement; taking allopurinol. Pupil asymmetry noted 12/20, CT head without acute pathology. Sodium stable/slightly improved with D5 infusion; potassium has corrected. Persistent metabolic acidosis consistent with renal failure. Urine output acceptable off diuretics, continue low-dose albumin due to extensive third spacing of fluids. If creatinine/BUN rise further will require volume replacement. Calcium low however I'm reluctant to treat with calcium given elevated phosphorus-continue to monitor. Mycelex troches discontinued several days ago; nystatin suspension for management of thrush while neutropenic. Given improvement in mental status and patient interest in food will resume speech therapy. PICC line to be withdrawn 4-5 cm based on chest x-ray findings. 12/23/2017 PLAN Completed 14 days of cefepime, Levaquin, and vancomycin on 12/20. Remains on methylprednisolone for respiratory failure. Dependent on high flow oxygen/BiPAP. Chemotherapy 12/16-12/18 for neuroendocrine malignancy. G-CSF initiated 12/19. Neutropenic precautions initiated 12/21. Remains pancytopenic, requires blood products intermittently-receive platelets yesterday, will replace again today. Uric acid slightly better today after IV dose of Rasburicase-taking allopurinol. Pupil asymmetry noted 12/20, CT head without acute pathology. Discussed acute kidney injury with anasarca with nephrology. Recommended D5W to help with hypernatremia. Recommended discontinuation of albumin at this time now that albumin is over 3. Could repeat IV albumin if albumin level drops below 3. Would give intermittent IV Bumex if needed for worsening urine output or hypoxia. Will obtain chest x-ray tomorrow. Discussed hypocalcemia with nephrology as well, will give Tums with meals and check a vitamin D level. If vitamin D level is low, start vitamin D. We'll still need to monitor closely for recurrence of hypercalcemia. If patient becomes symptomatic from hypocalcemia, can give IV calcium. Mycelex troches discontinued several days ago; nystatin suspension for management of thrush while neutropenic. Encourage oral nutrition, speech therapy has been consulted. Discussed thrombocytopenia and dark blood in posterior pharynx with Dr. Galarza, he recommends platelet transfusion today. Case discussed with CCU nursing, nephrology and oncology. The patient is critically ill. Greater than 45 minutes of critical care time spent seeing and evaluating the patient, determining care plan and discussing with consultants. Prognosis remains guarded. 12/24/2017 PLAN Start Levaquin prophylactically regarding neutropenia Remains on methylprednisolone and breathing treatments for respiratory failure. Chest x-ray is slowly improving. Dependent on high flow oxygen/BiPAP. Continue G-CSF (initiated 12/19). Neutropenic precautions initiated 12/21. Remains pancytopenic, requires blood products intermittently-receive platelets yesterday. Uric acid normalized-continue allopurinol. Hypocalcemia without symptoms-given IV calcium gluconate 1 g times one yesterday. Oral calcium initiated. Vitamin D levels pending Regarding worsening hypernatremia, increase D5W to 100 ML's per hour Discussed acute kidney injury with anasarca with nephrology 12/23/2017. Recommended D5W to help with hypernatremia. Recommended discontinuation of albumin at this time now that albumin is over 3. Could repeat IV albumin if albumin level drops below 3. Repeat renal panel this afternoon Would give intermittent IV Bumex if needed for worsening urine output or hypoxia. Nystatin suspension for management of thrush while neutropenic. Encourage oral nutrition, speech therapy has been consulted. Continue daily CBC and renal panel. Check liver enzymes tomorrow. LDH is slowly improving Increase sliding scale insulin for hyperglycemia Case discussed with CCU nursing, and Dr. Galarza. The patient is critically ill. Greater than 45 minutes of critical care time spent seeing and evaluating the patient, determining care plan and discussing with consultants. Prognosis remains guarded.
[2017-12-25] MEDS ORDERED: CALCIUM GLUCONATE 1,000 MG in NS 50 ML IV ONE ×2 (08:49→16:59)
[2017-12-25] MEDS: METOCLOPRAMIDE 10mg/2ml INJECTION IVP PRN (08:57)
--- NOTE | 2017-12-25 09:08 | XRay Report ---
Indication: hypoxia PROCEDURE: XR chest 1V: Encounter: Initial Comparison: December 24, 2017 Findings: Left PICC line remains in place. Right perihilar consolidation and mass are stable. Hazy airspace disease in the lateral right upper and lower lobes is unchanged. Emphysema. Small effusions are stable. No pneumothorax. Heart size and mediastinal contours are stable. Impression: No change. .
--- NOTE | 2017-12-25 10:13 | Pulmonology Progress Note ---
Subjective Principal diagnosis: pneumonia Interval history: Pt resting in bed, wakes to voice, no distress noted. Some SOB noted, + cough with sputum. Exam Vital signs: Temperature 97.1 F 12/25/17 08:00 Pulse Rate 121 H 12/25/17 09:00 Respiratory Rate 16 12/25/17 09:00 Blood Pressure 133/79 12/25/17 08:00 Pulse Oximetry 93 12/25/17 09:00 Inpatient Medications: Generic Name Dose Route Start Last Admin Trade Name Freq PRN Reason Stop Dose Admin Hydrocodone Bitart/Acetaminophen 1 tab 12/07/17 11:21 12/12/17 03:02 Clifford 5/325 PO 1 tab QID PRN Administration Pain Albuterol/Ipratropium 3 ml 12/07/17 16:00 12/25/17 06:57 Duoneb AEROSOL 3 ml Q4HR RANDALL Administration Allopurinol 100 mg 12/15/17 18:30 12/25/17 08:29 Zyloprim PO 100 mg DAILY RANDALL Administration Bisacodyl 10 mg 12/07/17 12:53 Dulcolax RECTALLY DAILY PRN Constipation Bumetanide 1 mg 12/18/17 14:30 12/20/17 05:50 Bumex 1 Mg/4 Ml Inj. IVP 1 mg Q8H RANDALL Administration Calcium Carbonate 1,000 mg 12/23/17 12:00 12/25/17 08:29 Tums PO 1,000 mg WM RANDALL Administration Diphenhydramine HCl 50 mg 12/16/17 14:00 12/22/17 15:07 Benadryl IVP 50 mg PRN PRN Administration For reaction to chemo Fluticasone Propionate 1 spray 12/07/17 11:25 Flonase EA NOSTRIL DAILY PRN PRN orders Hydrocortisone Sodium Succinate 100 mg 12/16/17 14:00 Solu-Cortef IVP PRN PRN For reaction to chemo Hydromorphone HCl 0.5 mg 12/25/17 08:47 Dilaudid IVP Q3H PRN Pain Levofloxacin/Dextrose 750 mg in 150 mls @ 100 mls/hr 12/24/17 09:00 12/24/17 10:31 Levaquin Premix IV Infused Q48H RANDALL Infusion Sodium Bicarbonate 50 meq/ 1,050 mls @ 100 mls/hr 12/24/17 16:30 12/25/17 07: 17 Dextrose IV 100 mls/hr .[id number] RANDALL Administration Insulin Aspart 2 - 8 unit 12/24/17 10:27 12/24/17 23:37 Novolog SQ 3 unit SS PRN Administration Hyperglycemia Protocol Lactulose 10 gm 12/22/17 10:39 12/24/17 08:25 Lactulose PO 10 gm DAILY PRN Administration Constipation Lorazepam 0.25 mg 12/07/17 12:48 12/25/17 02:06 Ativan Inj IVP 0.25 mg Q4H PRN Administration Air hunger/Anxiety Methylprednisolone Sodium Succinate 125 mg 12/16/17 14:00 Solu-Medrol IVP PRN PRN For reaction to chemo Methylprednisolone Sodium Succinate 80 mg 12/21/17 10:24 12/25/17 08:30 Solu-Medrol IVP 80 mg Q6HR RANDALL Administration Metoclopramide HCl 10 mg 12/23/17 17:32 12/25/17 08:57 Reglan IVP 10 mg Q6H PRN Administration Multivitamins/Minerals 1 tab 12/25/17 09:00 Therapeutic - M PO DAILY RANDALL Nicotine 21 mg 12/07/17 10:45 12/25/17 08:31 Nicoderm TD 21 mg DAILY RANDALL Administration Nicotine 1 removal 12/08/17 09:00 12/25/17 08:31 Nicotine Patch Removal TD 1 removal DAILY RANDALL Administration Nystatin 5 ml 12/20/17 13:00 12/25/17 08:26 Mycostatin PO 12/30/17 12:59 5 ml QID RANDALL Administration Oxymetazoline HCl 2 spray 12/20/17 11:00 12/20/17 13:25 Afrin Nasal [place] EA NOSTRIL 2 spray BID PRN Administration Bleeding Pantoprazole Sodium 40 mg 12/17/17 15:30 12/25/17 08:27 Protonix Iv IVP 40 mg DAILY RANDALL Administration Pharmacy Profile Note 5 ml 12/14/17 11:19 12/21/17 18:12 Lidocaine/Maalox/Benadryl Soln PO 5 ml Q4H PRN Administration Mouth pain Polyethylene Glycol 17 gm 12/09/17 11:00 12/25/17 08:31 Miralax PO 17 gm DAILY RANDALL Administration Sodium Chloride 2 spray 12/08/17 10:15 12/25/17 08:32 Deep Sea Nasal Moisturizing [place] EA NOSTRIL 2 spray QID RANDALL Administration Sodium Chloride 500 ml 12/15/17 16:40 12/24/17 20:04 Normal Saline IV 500 ml PRN PRN Administration Sodium Chloride 10 - 80 ml 12/15/17 16:40 12/25/17 08:57 Iv Flush IV 40 ml PRN PRN Administration Flushing Sodium Chloride 500 ml 12/21/17 08:38 Normal Saline IV PRN PRN Sodium Chloride 500 ml 12/22/17 12:30 Normal Saline IV PRN PRN Sodium Chloride 500 ml 12/23/17 09:30 Normal Saline IV PRN PRN Sodium Chloride 500 ml 12/25/17 06:53 Normal Saline IV PRN PRN Tbo-Filgrastim 480 mcg 12/19/17 19:00 12/24/17 19:20 Granix SQ 480 mcg Q24H RANDALL Administration Discontinued Medications Generic Name Dose Route Start Last Admin Trade Name Freq PRN Reason Stop Dose Admin Acetaminophen 650 mg 12/11/17 10:30 12/11/17 20:30 Tylenol PO 12/11/17 10:31 325 mg O ONE Administration Albumin Human 25 g 12/17/17 15:07 12/17/17 16:01 Albumin Human IV 12/17/17 15:08 25 g Q8H ONE Administration Albumin Human 25 g 12/18/17 12:00 Albumin Human IV Q8H RANDALL Albuterol/Ipratropium 3 ml 12/07/17 11:00 12/07/17 16:44 Duoneb AEROSOL Not Given RTQID COUNTS INCLUDE 234 BEDS AT [facility] Allopurinol 300 mg 12/12/17 13:45 12/17/17 08:56 Zyloprim PO Not Given DAILY COUNTS INCLUDE 234 BEDS AT THE [facility] Alteplase, Recombinant 2 mg 12/21/17 04:32 12/21/17 04:59 Cathflo Activase IV 12/21/17 04:33 2 mg O ONE Administration Benzonatate 100 mg 12/07/17 12:48 Tessalon Perles PO TID PRN Cough Bumetanide 1 mg 12/19/17 19:00 12/19/17 19:10 Bumex 1 Mg/4 Ml Inj. IVP 12/19/17 19:01 1 mg O ONE Administration Clotrimazole 10 mg 12/09/17 12:00 12/20/17 10:19 Mycelex Pj MM Not Given 5XD RANDALL Diphenhydramine HCl 50 mg 12/09/17 10:36 12/09/17 12:51 Benadryl PO 12/09/17 10:37 50 mg ONCE ONE Administration Diphenhydramine HCl 25 mg 12/11/17 10:29 12/11/17 20:30 Benadryl PO 12/11/17 10:30 25 mg ONCE ONE Administration Diphenhydramine HCl 50 mg 12/21/17 08:38 12/21/17 18:16 Benadryl PO 12/21/17 08:39 Not Given ONCE ONE Diphenhydramine HCl 50 mg 12/22/17 12:30 12/22/17 15:05 Benadryl PO 12/22/17 12:31 Not Given ONCE ONE Furosemide 20 mg 12/11/17 10:29 12/11/17 23:59 Lasix IVP 12/11/17 10:30 20 mg O ONE Administration Furosemide 20 mg 12/12/17 14:06 12/12/17 14:47 Lasix IVP 12/12/17 14:07 20 mg ONCE ONE Administration Furosemide 20 mg 12/13/17 09:29 12/13/17 11:51 Lasix IVP 12/13/17 09:30 20 mg ONCE ONE Administration Furosemide 40 mg 12/14/17 11:19 12/14/17 12:14 Lasix IVP 12/14/17 11:20 40 mg O ONE Administration Furosemide 40 mg 12/15/17 09:29 12/15/17 11:44 Lasix IVP 12/15/17 09:30 40 mg O ONE Administration Furosemide 40 mg 12/15/17 17:41 12/15/17 18:32 Lasix IVP 12/15/17 17:42 40 mg O ONE Administration Furosemide 40 mg 12/16/17 15:13 12/16/17 15:18 Lasix IVP 12/16/17 15:14 40 mg O ONE Administration Furosemide 20 mg 12/17/17 11:44 12/17/17 12:27 Lasix IVP 12/17/17 11:45 20 mg ONCE ONE Administration Furosemide 20 mg 12/17/17 16:00 03/08/18 15:35 Lasix IVP 12/17/17 16:01 20 mg Q8H ONE Administration Furosemide 20 mg 12/21/17 08:38 12/21/17 16:07 Lasix IVP 12/21/17 08:39 20 mg O ONE Administration Cefepime HCl 1 gm/ Sodium 100 mls @ 200 mls/hr 12/07/17 08:43 12/07/17 09:33 Chloride IV 12/07/17 09:12 Infused O ONE Infusion Sodium Chloride 1,000 mls @ 1,000 mls/hr 12/07/17 08:43 12/07/17 10:08 Normal Saline IV 12/07/17 09:42 Infused .Q1H ONE Infusion Sodium Chloride 1,000 mls @ 999.9 mls/hr 12/07/17 09:13 12/07/17 11:38 Normal Saline IV 12/07/17 10:12 Infused .Q1H ONE Infusion Cefepime HCl 1 gm/ Sodium 50 mls @ 100 mls/hr 12/07/17 16:00 12/12/17 00:59 Chloride IV Not Given Q6H RANDALL Levofloxacin/Dextrose 750 mg in 150 mls @ 100 mls/hr 12/07/17 11:21 12/17/17 13:13 Levaquin Premix IV Infused Q24H RANDALL Infusion Sodium Chloride 1,000 mls @ 125 mls/hr 12/07/17 11:21 12/08/17 10:31 Normal Saline IV Infused .Q8H RANDALL Infusion Vancomycin HCl 1,250 mg/ 250 mls @ 200 mls/hr 12/08/17 02:00 12/09/17 18:58 Sodium Chloride IV Not Given Q12H RANDALL Vancomycin HCl 1,750 mg/ 500 mls @ 250 mls/hr 12/07/17 14:00 12/07/17 15:00 Sodium Chloride IV 12/07/17 14:01 Infused O ONE Infusion Sodium Chloride 500 mls @ 500 mls/hr 12/08/17 03:40 12/08/17 03:40 Normal Saline IV 12/08/17 04:39 Not Given .Q1H ONE Sodium Chloride 500 mls @ 500 mls/hr 12/08/17 05:30 12/08/17 05:17 Normal Saline IV 12/08/17 06:30 Not Given .Q1H RANDALL Potassium Chloride 20 meq/ 1,014.5455 mls @ 75 mls/hr 12/08/17 09:45 13:00 Potassium Phosphate 20 meq/ IV 0 mls/hr Sodium Chloride .[id number] RANDALL Infusion Potassium Chloride 20 meq/ 1,014.5455 mls @ 50 mls/hr 12/09/17 11:00 12:05 Potassium Phosphate 20 meq/ IV Infused Sodium Chloride .[id number] RANDALL Infusion Vancomycin HCl 1,750 mg/ 500 mls @ 250 mls/hr 12/09/17 14:00 12/12/17 08:00 Sodium Chloride IV 12/12/17 07:30 Not Given Q12H RANDALL Sodium Chloride 1,000 mls @ 500 mls/hr 12/10/17 16:53 12/10/17 19:30 Normal Saline IV 12/10/17 18:52 Infused .Q2H ONE Infusion Sodium Chloride 1,000 mls @ 75 mls/hr 12/11/17 18:00 12/12/17 14:46 Normal Saline IV Infused .[id number] RANDALL Infusion Sodium Chloride 500 mls @ 250 mls/hr 12/11/17 15:45 12/11/17 18:20 Normal Saline IV 12/11/17 17:44 Infused .Q2H RANDALL Infusion Vancomycin HCl 1,750 mg/ 500 mls @ 250 mls/hr 12/13/17 08:00 Sodium Chloride IV 12/13/17 08:00 Q24H RANDALL Sodium Bicarbonate 100 meq/ 1,100 mls @ 75 mls/hr 12/12/17 14:00 12/13/17 12: 30 Dextrose IV Infused .[id number] RANDALL Infusion Vancomycin HCl 1,250 mg/ 250 mls @ 200 mls/hr 12/14/17 08:00 12/14/17 11:00 Sodium Chloride IV Infused Q48H RANDALL Infusion Zoledronic Acid 3 mg in 75 mls @ 150 mls/hr 12/13/17 12:00 12/13/17 14:59 Zometa IV 12/13/17 12:29 Infused O ONE Infusion Sodium Bicarbonate 100 meq/ 1,100 mls @ 100 mls/hr 12/13/17 12:30 12/16/17 12 :04 Dextrose IV Not Given .Q11H RANDALL Cefepime HCl 1 gm/ Sodium 100 mls @ 200 mls/hr 12/14/17 19:30 12/15/17 01:35 Chloride IV Infused Q6H RANDALL Infusion Cefepime HCl 1 gm/ Sodium 50 mls @ 200 mls/hr 12/15/17 09:00 12/17/17 09:25 Chloride IV Infused Q6HR RANDALL Infusion Vancomycin HCl 1,000 mg/ 250 mls @ 250 mls/hr 12/15/17 12:00 12/16/17 14:11 Sodium Chloride IV 12/17/17 11:59 Infused Q24H RANDALL Infusion Dextrose/Sodium Chloride 1,000 mls @ 75 mls/hr 12/15/17 13:30 12/19/17 14:00 D5-1/2ns IV Infused .[id number] RANDALL Infusion Dexamethasone 10 mg/ Sodium 52.5 mls @ 210 mls/hr 12/16/17 14:00 12/16/17 14: 39 Chloride IV 12/16/17 14:14 Infused O ONE Infusion Carboplatin 377 mg/ Dextrose 287.7 mls @ 250 mls/hr 12/16/17 14:30 12/16/17 16:00 IV 12/16/17 15:39 Infused O ONE Infusion Etoposide 100 mg/ Sodium 505 mls @ 125 mls/hr 12/16/17 15:30 12/16/17 20:00 Chloride IV 12/16/17 19:32 Infused O ONE Infusion Dexamethasone 10 mg/ Sodium 52.5 mls @ 150 mls/hr 12/17/17 14:00 12/17/17 14: 42 Chloride IV 12/17/17 14:20 Infused O ONE Infusion Etoposide 100 mg/ Sodium 505 mls @ 125 mls/hr 12/17/17 14:30 12/17/17 19:00 Chloride IV 12/17/17 18:32 Infused O ONE Infusion Vancomycin HCl 1,000 mg/ 250 mls @ 250 mls/hr 12/18/17 00:01 12/21/17 01:28 Sodium Chloride IV 12/21/17 11:00 Infused Q36H RANDALL Infusion Cefepime HCl 1 gm/ Sodium 50 mls @ 100 mls/hr 12/17/17 17:00 12/18/17 09:01 Chloride IV 100 mls/hr Q8HR RANDALL Administration Levofloxacin/Dextrose 750 mg in 150 mls @ 100 mls/hr 12/19/17 09:00 12/19/17 12:15 Levaquin Premix IV Infused Q48H RANDALL Infusion Dexamethasone 10 mg/ Sodium 52.5 mls @ 150 mls/hr 12/18/17 14:00 12/18/17 14: 38 Chloride IV 12/18/17 14:20 Infused O ONE Infusion Etoposide 100 mg/ Sodium 505 mls @ 125 mls/hr 12/18/17 14:30 12/18/17 14:38 Chloride IV 12/18/17 18:32 125 mls/hr O ONE Administration Albumin Human 100 mls @ 50 mls/hr 12/18/17 12:00 12/21/17 05:19 Albumin Human 25 Gm IV Infused Q8H RANDALL Infusion Cefepime HCl 1 gm/ Sodium 50 mls @ 100 mls/hr 12/18/17 21:00 12/21/17 09:18 Chloride IV 12/21/17 11:00 Infused Q12H RANDALL Infusion Potassium Chloride 40 meq/ 520 mls @ 100 mls/hr 12/19/17 13:00 12/19/17 19:00 Dextrose IV 12/19/17 18:11 100 mls/hr .[id number] RANDALL Infusion Potassium Chloride 40 meq/ 1,020 mls @ 100 mls/hr 12/21/17 10:00 12/23/17 07: 07 Dextrose IV Infused .[id number] RANDALL Infusion Albumin Human 50 mls @ 50 mls/hr 12/21/17 12:00 12/23/17 05:20 Albumin Human 12.5 Gm IV Infused Q8H RANDALL Infusion Rasburicase 3 mg/ Sodium 50 mls @ 100 mls/hr 12/21/17 14:30 12/21/17 19:51 Chloride IV 12/21/17 14:59 Infused O ONE Infusion Dextrose/Sodium Chloride 1,000 mls @ 75 mls/hr 12/22/17 18:45 12/23/17 11:56 D5-1/2ns IV Infused .[id number] RANDALL Infusion Dextrose 1,000 mls @ 75 mls/hr 12/23/17 11:15 12/24/17 16:30 Dextrose 5% In Water IV Infused .[id number] RANDALL Infusion 100 mls/hr Calcium Gluconate 1,000 mg/ 60 mls @ 200 mls/hr 12/23/17 18:32 12/23/17 19:52 Sodium Chloride IV 12/23/17 18:49 Infused O ONE Infusion Calcium Gluconate 1,000 mg/ 60 mls @ 200 mls/hr 12/24/17 16:29 12/24/17 17:18 Sodium Chloride IV 12/24/17 16:46 Infused O ONE Infusion Potassium Chloride 10 meq in 100 mls @ 100 mls/hr 12/24/17 16:45 12/24/17 17: 18 Potassium Chloride Premix IV 12/24/17 18:44 Not Given Q1H RANDALL Potassium Chloride 10 meq/ 105 mls @ 100 mls/hr 12/24/17 17:30 12/24/17 20:05 Sodium Chloride IV 12/24/17 19:29 Infused Q1H RANDALL Infusion Calcium Gluconate 1,000 mg/ 60 mls @ 200 mls/hr 12/24/17 19:13 12/24/17 20:22 Sodium Chloride IV 12/24/17 19:30 Infused O ONE Infusion Calcium Gluconate 1,000 mg/ 60 mls @ 200 mls/hr 12/25/17 08:49 Sodium Chloride IV 12/25/17 09:06 O ONE Insulin Aspart 1 - 5 unit 12/21/17 09:19 12/23/17 23:28 Novolog SQ 2 unit SS PRN Administration Hyperglycemia Protocol Magnesium Hydroxide 30 ml 12/07/17 12:53 Mom PO DAILY PRN Constipation Methylprednisolone Sodium Succinate 125 mg 12/15/17 15:30 12/21/17 08:50 Solu-Medrol IVP 125 mg Q6HR RANDALL Administration Metoclopramide HCl 5 mg 12/17/17 14:30 12/19/17 10:58 Reglan Not Given Q6H RANDALL Morphine Sulfate 2 mg 12/07/17 12:47 12/14/17 10:38 Morphine Sulfate Inj IVP 2 mg Q2HR PRN Administration Pain Morphine Sulfate 4 mg 12/14/17 11:20 12/19/17 09:54 Morphine Sulfate Inj IVP 4 mg Q2HR PRN Administration Pain Morphine Sulfate 2 - 4 mg 12/19/17 10:49 12/25/17 03:44 Morphine Sulfate Inj IVP 2 mg Q2HR PRN Administration Pain Ondansetron HCl 4 mg 12/07/17 11:21 12/23/17 16:20 Zofran IVP 4 mg Q6H PRN Administration Nausea Palonosetron 0.25 mg 12/16/17 14:00 12/16/17 14:04 Aloxi IV 12/16/17 14:01 0.25 mg O ONE Administration Pharmacy Consult 1 each 12/11/17 11:34 Pharmacy Consult - Fall Risk XX 12/11/17 11:35 ONE TIME ONE Pharmacy Consult 1 each 12/19/17 17:12 Pharmacy Consult - Fall Risk XX 12/19/17 17:13 ONE TIME ONE Potassium Chloride 20 meq 12/12/17 13:58 12/12/17 14:14 K-Dur 20 Meq Tablet PO 12/12/17 13:59 20 meq O ONE Administration Potassium Chloride 20 meq 12/13/17 12:30 12/19/17 10:58 K-Dur 20 Meq Tablet PO Not Given BIDWM RANDALL Promethazine HCl/Codeine 5 ml 12/07/17 12:49 Phenergan + Codeine PO Q6HR PRN Cough Rasburicase 3 mg 12/21/17 13:35 12/21/17 18:17 Elitek IV 12/21/17 13:36 Not Given O ONE Sodium Chloride 10 - 80 ml 12/07/17 08:43 12/20/17 15:18 Iv Flush IVF 40 ml PRN PRN Administration [place]ushing Sodium Chloride 500 ml 12/07/17 11:24 12/10/17 16:47 Normal Saline IV 500 ml PRN PRN Administration Sodium Chloride 500 ml 12/09/17 10:36 12/11/17 08:14 Normal Saline IV 500 ml PRN PRN Administration Sodium Chloride 500 ml 12/10/17 16:57 Normal Saline IV PRN PRN Sodium Chloride 500 ml 12/11/17 10:29 Normal Saline IV PRN PRN Sodium Chloride 500 ml 12/13/17 09:27 Normal Saline IV PRN PRN Sodium Chloride 500 ml 12/13/17 10:04 Normal Saline IV PRN PRN Sodium Chloride 500 ml 12/15/17 09:29 Normal Saline IV PRN PRN Spironolactone 12.5 mg 12/13/17 09:30 12/13/17 11:51 Aldactone PO 12/13/17 09:31 12.5 mg ONE TIME ONE Administration Vancomycin HCl 1 each 12/07/17 11:09 Pharmacy Consult - Vancomycin 12/07/17 11:10 O ONE Vancomycin HCl 1 each 12/07/17 11:21 Pharmacy Consult - Vancomycin 12/07/17 11:22 O ONE - Constitutional no acute distress, cachectic - Routine HEENT Exam Head: Present: normocephalic, atraumatic Eye: Present: EOMI, PERRL ENT: Present: mucous membranes moist - Routine Neck Exam Present: supple, full ROM, trachea midline - Routine Respiratory Exam Present: rhonchi, wheezes. Absent: accessory muscle use, patient mechanically ventilated - Routine Cardiovascular Exam Present: RRR, S1, S2, no murmur - Routine Abdominal Exam Present: soft, normoactive bowel sounds - Routine Extremities Exam Present: edema, non tender, normal capillary refill - Routine Back/Spine/Pelvis Exam Back/Spine: Present: full ROM - Routine Skin Exam Present: intact, dry - Routine Neurological Exam Present: alert, CN II-XII intact - Routine Psychiatric Exam Present: normal affect, cooperative - Urinary Catheter Management Urethral Cath placed during this visit: yes Urethral indwelling: Yes Reason for continuing: Accurate I&O/Aggressive Diuresis Insertion date: 12/07/17 Insertion time: 19:45 Results - Laboratory Findings Laboratory: Laboratory Results - last 48 hr 12/15/17 12/23/17 12/23/17 10:41 10:28 13:55 WBC RBC Hgb Hct MCV MCH MCHC RDW Std Deviation Plt Count MPV Neutrophils % (Manual) Lymphocytes % (Manual) Neutrophils # (Manual) Lymphocytes # (Manual) Poikilocytosis Anisocytosis Tear Drop Cells Ovalocytes Helmet Cells [place] Cells Schistocytes RBC Morph Comment INR APTT Fibrinogen Turbidity Sodium Potassium Chloride Carbon Dioxide Anion Gap BUN Creatinine GFR Calculation BUN/Creatinine Ratio Glucose Glucometer 223 Calculated Osmolality Uric Acid Calcium Phosphorus Magnesium Total Bilirubin Conjugated Bilirubin Unconjugated Bilirubin Icterus Index AST ALT Alkaline Phosphatase Lactate Dehydrogenase Total Protein Albumin Globulin Albumin/Globulin Ratio Specimen Hemolysis Crossmatch ([facility]) See Detail Blood Product Request 1 unit ppp issued 12/23/17 12/23/17 12/23/17 16:18 16:33 17:56 WBC RBC Hgb Hct MCV MCH MCHC RDW Std Deviation Plt Count 16 L* D MPV Neutrophils % (Manual) Lymphocytes % (Manual) Neutrophils # (Manual) Lymphocytes # (Manual) Poikilocytosis Anisocytosis Tear Drop Cells Ovalocytes Helmet Cells [place] Cells Schistocytes RBC Morph Comment INR APTT Fibrinogen Turbidity < 20 Sodium 143 D Potassium 3.7 Chloride 108 H Carbon Dioxide 20 L Anion Gap 15 BUN 97.0 H* Creatinine 2.3 H D GFR Calculation 30 BUN/Creatinine Ratio 42 H Glucose 395 H Glucometer 205 Calculated Osmolality 321 H Uric Acid Calcium 5.0 L* Phosphorus 5.4 H Magnesium Total Bilirubin Conjugated Bilirubin Unconjugated Bilirubin Icterus Index < 2 AST ALT Alkaline Phosphatase Lactate Dehydrogenase Total Protein Albumin 2.9 L Globulin Albumin/Globulin Ratio Specimen Hemolysis < 15 Crossmatch ([facility]) Blood Product Request 12/23/17 12/24/17 12/24/17 23:15 04:01 04:01 WBC 0.1 L* RBC 2.47 L Hgb 7.5 L Hct 23.0 L MCV 93.1 MCH 30.4 MCHC 32.6 RDW Std Deviation 67.8 H Plt Count 14 L* MPV 11.6 Neutrophils % (Manual) 10.0 L Lymphocytes % (Manual) 90.0 H Neutrophils # (Manual) 0.0 L Lymphocytes # (Manual) 0.1 L Poikilocytosis 2+ Anisocytosis 2+ Tear Drop Cells 1+ Ovalocytes 1+ Helmet Cells 1+ [place] Cells Schistocytes 1+ RBC Morph Comment Abnormal INR APTT Fibrinogen Turbidity < 20 Sodium 151 H D Potassium 3.7 Chloride 113 H Carbon Dioxide 21 L Anion Gap 17 H BUN 103.0 H* Creatinine 2.4 H GFR Calculation 28 BUN/Creatinine Ratio 43 H Glucose 171 H Glucometer 235 Calculated Osmolality 326 H Uric Acid 6.6 Calcium 5.4 L* Phosphorus 5.6 H Magnesium Total Bilirubin Conjugated Bilirubin Unconjugated Bilirubin Icterus Index < 2 AST ALT Alkaline Phosphatase Lactate Dehydrogenase 3334 H Total Protein Albumin 3.1 L Globulin Albumin/Globulin Ratio Specimen Hemolysis < 15 Crossmatch ([facility]) Blood Product Request 12/24/17 12/24/17 12/24/17 12:41 14:32 14:32 WBC RBC Hgb Hct MCV MCH MCHC RDW Std Deviation Plt Count MPV Neutrophils % (Manual) Lymphocytes % (Manual) Neutrophils # (Manual) Lymphocytes # (Manual) Poikilocytosis Anisocytosis Tear Drop Cells Ovalocytes Helmet Cells [place] Cells Schistocytes RBC Morph Comment INR 1.39 H APTT 29.4 Fibrinogen 207 Turbidity < 20 Sodium 147 H Potassium 3.5 L Chloride 109 H Carbon Dioxide 20 L Anion Gap 18 H BUN 100.0 H* Creatinine 2.3 H GFR Calculation 30 BUN/Creatinine Ratio 44 H Glucose 296 H Glucometer 214 Calculated Osmolality 324 H Uric Acid Calcium 5.1 L* Phosphorus 5.5 H Magnesium Total Bilirubin Conjugated Bilirubin Unconjugated Bilirubin Icterus Index < 2 AST ALT Alkaline Phosphatase Lactate Dehydrogenase Total Protein Albumin 2.8 L Globulin Albumin/Globulin Ratio Specimen Hemolysis < 15 Crossmatch ([facility]) Blood Product Request 12/24/17 12/25/17 12/25/17 23:27 04:03 04:03 WBC 0.0 L* D RBC 2.33 L Hgb 7.2 L Hct 21.7 L MCV 93.1 MCH 30.9 MCHC 33.2 RDW Std Deviation 66.7 H Plt Count 5 L* D MPV Not performed Neutrophils % (Manual) 0.0 L Lymphocytes % (Manual) 100.0 H Neutrophils # (Manual) 0.0 L Lymphocytes # (Manual) 0.0 L Poikilocytosis 2+ Anisocytosis 2+ Tear Drop Cells 1+ Ovalocytes 1+ Helmet Cells 1+ Timothy Cells 1+ Schistocytes 1+ RBC Morph Comment Abnormal INR APTT Fibrinogen Turbidity < 20 Sodium 150 H Potassium 3.7 Chloride 111 H Carbon Dioxide 20 L Anion Gap 19 H BUN 103.0 H* Creatinine 2.4 H GFR Calculation 28 BUN/Creatinine Ratio 43 H Glucose 118 H Glucometer 220 Calculated Osmolality 321 H Uric Acid 6.2 Calcium 5.6 L* D Phosphorus 5.0 H Magnesium 2.0 Total Bilirubin 1.70 H Conjugated Bilirubin 0.00 Unconjugated Bilirubin 0.70 Icterus Index < 2 AST 41 ALT 25 Alkaline Phosphatase 173 H Lactate Dehydrogenase 2929 H Total Protein 5.1 L Albumin 2.9 L Globulin 2.2 L Albumin/Globulin Ratio 1.3 Specimen Hemolysis < 15 Crossmatch ([facility]) Blood Product Request 12/25/17 06:01 WBC RBC Hgb Hct MCV MCH MCHC RDW Std Deviation Plt Count MPV Neutrophils % (Manual) Lymphocytes % (Manual) Neutrophils # (Manual) Lymphocytes # (Manual) Poikilocytosis Anisocytosis Tear Drop Cells Ovalocytes Helmet Cells [place] Cells Schistocytes RBC Morph Comment INR APTT Fibrinogen Turbidity Sodium Potassium Chloride Carbon Dioxide Anion Gap BUN Creatinine GFR Calculation BUN/Creatinine Ratio Glucose Glucometer 139 Calculated Osmolality Uric Acid Calcium Phosphorus Magnesium Total Bilirubin Conjugated Bilirubin Unconjugated Bilirubin Icterus Index AST ALT Alkaline Phosphatase Lactate Dehydrogenase Total Protein Albumin Globulin Albumin/Globulin Ratio Specimen Hemolysis Crossmatch ([facility]) Blood Product Request - Diagnostic Findings Chest x-ray: image reviewed (Cont RUL infiltrates with small R effusion and atelectasis, unchanged from prev CXR) Assessment and Plan - Assessment and Plan Acute Hypoxic Respiratory Failure RUL pneumonia Right pleural effusion - improved 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 Cont on Bt's with A/A q4hr, solum 80mg q6hr, wean to q8. Abx with levaquin, s/p vanco and cefepime for pna. s/p chemo, follow. Still on diuresis per primary. - Time Spent With Patient Total time spent is greater than 50% in coordination of care (as documented) at patient's floor/unit and/or counseling patient: less than 15 minutes
[2017-12-25] MEDS: MULTI-VITAMIN + MINERAL TABLET PO SCH (10:38)
[2017-12-25] MEDS: HYDROMORPHONE 2 MG/ML INJECTION IVP PRN ×2 (11:20→16:26)
[2017-12-25] MEDS: LACTULOSE 20 GM/30 ML ORAL LIQUID PO PRN (13:00)
--- NOTE | 2017-12-25 13:12 | Progress Note ---
<Sharifa Duarte - Last Filed: 12/25/17 14:54> Oncology Subjective Alone in room. Awake/alert and oriented X2. Speech hard to understand. Cont. w/ occ. prod cough, SOA at times, interm. back and abd. pain-denies pain now. Last documented BM 12/16/17. crews intact General: No fever, no night sweats Eyes: No redness, no pain, no diplopia ENT: + mouth sores, dry mouth Cardiac: No chest pain no palpitations Pulmonary: + cough, + shortness of breath at times. no wheezing Abdomen: + intermittent pain, no nausea vomiting, : crews Musculoskeletal: + Rhematoid arthritis, gen. weakness Neurological: No headaches, no focal weakness Skin: No rash Psychiatric: No anxiety, no depression Exam Vital signs: Temperature 97.1 F 12/25/17 08:00 Pulse Rate 121 H 12/25/17 09:00 Respiratory Rate 18 12/25/17 11:04 Blood Pressure 133/79 12/25/17 08:00 Pulse Oximetry 95 12/25/17 11:05 - Constitutional no acute distress, well nourished, well developed, cooperative - Routine HEENT Exam Head: Present: normocephalic Eye: Present: EOMI ENT: Present: mucous membranes dry (tongue pink, dry. No bleeding noted. 2 small discrete shallow lesions under tongue) - Routine Neck Exam Present: supple. Absent: lymphadenopathy - Routine Respiratory Exam Present: decreased breath sounds, rhonchi. Absent: wheezes - Routine Cardiovascular Exam Present: RRR - Routine Abdominal Exam Present: soft, distended (bowel sounds present/decreased) - Routine Exam Penile: Present: ulceration Scrotal: Present: swelling - Routine Extremities Exam Present: edema, joint swelling - Routine Skin Exam Present: pallor, petechiae, wounds (penile/scrotal excoriated wounds), ecchymosis (scattered petechia dorsum christopher. feet/ecchymosis christopher upper arms/RLQ of abd.-no worsening or new areas noted.) - Routine Neurological Exam Present: alert, oriented X3 - Routine Psychiatric Exam Present: normal affect, cooperative Oncology Results - Labs CBC & Chem 7: 12/25/17 13:07 12/25/17 13:07 Labs: Short CBC 12/25/17 Range/Units 04:03 WBC 0.0 L* D (4.5-11.0) T/MM3 Hgb 7.2 L (13.5-17.5) GM/DL Hct 21.7 L (41-53) % Plt Count 5 L* D (130-400) T/MM3 BMP 12/24/17 12/25/17 14:32 04:03 Sodium 147 H 150 H Potassium 3.5 L 3.7 Chloride 109 H 111 H Carbon Dioxide 20 L 20 L BUN 100.0 H* 103.0 H* Creatinine 2.3 H 2.4 H Glucose 296 H 118 H Calcium 5.1 L* 5.6 L* D Liver Function 12/24/17 12/25/17 Range/Units 14:32 04:03 Total Bilirubin 1.70 H (0.20-1.30) MG/DL AST 41 (17-59) U/L ALT 25 (1-50) U/L Alkaline Phosphatase 173 H (38-126) U/L Albumin 2.8 L 2.9 L (3.5-5.0) g/dL Assessment and Plan Assessment and Plan: ASSESSMENT 1. 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 Began chemotherapy with carboplatin and etoposide on 12/16/17. Completed on 12/18/17. Started G-CSF 12/19/17 and continues daily. Severe pancytopenia even prior to chemotherapy secondary to bone marrow involvemant. 2. Moderate respiratory distress/respiratory failure due to advanced disease and obstructive pneumonia. Pulmonology following. Today,12/24/17- O2 via nasal cannula only at time of intake. Breathing seems to be improving. 3. Hypercalcemia due to malignancy. Improving, calcium level 10.0 on 12/17/17, 8.6 on 12/18/17, 7.9 on 12/19/17. 6.8 with albumin of 2.7 on 12/20/17. On 12/23/17 calcium is 5.0 with Albumin of 2.9. May benefit from calcium replacement. Discussed with hospitalist. Calcium 12/24/17 is 5.1. Calcium 12/25/17 is 5.6. 4. Pancytopenia; neutropenia and thrombocytopenia due to bone metastasis and most likely bone marrow metastases. Platelets on 12/17/17 are 20 K, platelets 23K on 12/18/17. HGB on 12/18/17 is 7.3, WBC 1.9/ANC 1.7, 12/19/17: WBC 2.0, ANC 1.9, PLT 16. /08/29 WBC 1.3, ANC-1.1, PLT-9 Platelets given. 12/21/17 -WBC 0.5/ANC is 0.4, HGB 6.5, PLT 7. One unit PRBC's given 12/23/17: WBC-0.1 24% neutrophils. Hgb 7.1 and PLT 9. Will give platelets. 12/24/17: WBC 0.1, 10%neutrophils. Hgb 7.5, and PLT14. 12/25/17 WBC 0.0, Hgb 7.2, and PLT 5. Given 1 Unit platelets today 12/25/16. Repeat platelets 12/25/17 are 33 5. LDH continues to decrease 12/18/17: LDH 5077 12/19/17: LDH 4612 12/20/17: LDH 4661 12/21/17: LDH 4217 12/22/17: LDH 3720 12/23/17: LDH 3493 12/24/17: LDH 3334 12/25/17: LDH 2929 6. Renal insufficiency Creatinine stable at 2.0 on 12/20/17, increased at 2.3 on 12/21/17. Creat 2.5 on 12/23/17. Creat 2.4 on 12/24/17. Creat 2.1 on @1307. 7. Respiratory insufficency. On High flow O2. 8. Unequal pupils with negative CT. Will follow. Improved. 9. Hyperuricemia, uric acid 8.6 on12/21/17, 7.1 on 12/23/17, 6.6 on 12/24/17, and 6.2 on 12/25/17. Plan Completed chemotherapy 12/18/17. Continue aggressive supportive care, antibiotics. Continue C-GSF for neutropenia; started 12/19. Follow counts daily; supportive care with platelets and packed RBCs Asked nurse to repeat Lactulose today. Prognosis guarded. - Time Spent With Patient Total time spent is greater than 50% in coordination of care (as documented) at patient's floor/unit and/or counseling patient: less than 15 minutes <Davy Galarza D - Last Filed: 12/25/17 16:35> Exam Vital signs: Temperature 97.1 F 12/25/17 08:00 Pulse Rate 121 H 12/25/17 09:00 Respiratory Rate 14 12/25/17 14:56 Blood Pressure 133/79 12/25/17 08:00 Pulse Oximetry 93 12/25/17 14:56 Oncology Results - Labs CBC & Chem 7: 12/25/17 13:07 12/25/17 13:07 Labs: Short CBC 12/25/17 12/25/17 Range/Units 04:03 13:07 WBC 0.0 L* D (4.5-11.0) T/MM3 Hgb 7.2 L (13.5-17.5) GM/DL Hct 21.7 L (41-53) % Plt Count 5 L* D 33 L D (130-400) T/MM3 BMP 12/25/17 12/25/17 04:03 13:07 Sodium 150 H 140 D Potassium 3.7 3.5 L Chloride 111 H 102 D Carbon Dioxide 20 L 23 BUN 103.0 H* 96.0 H* Creatinine 2.4 H 2.1 H D Glucose 118 H 463 H Calcium 5.6 L* D 5.3 L* Liver Function 12/25/17 12/25/17 Range/Units 04:03 13:07 Total Bilirubin 1.70 H (0.20-1.30) MG/DL AST 41 (17-59) U/L ALT 25 (1-50) U/L Alkaline Phosphatase 173 H (38-126) U/L Albumin 2.9 L 2.8 L (3.5-5.0) g/dL Assessment and Plan Assessment and Plan: Patient examined chart reviewed. Agree with Yovana Duarte documentation. I participated in the development of the plan of care of this patient. Platelets today. Up to33K after transfusion. Continue G CSF and antibiotics. Supportive care. - Time Spent With Patient Total time spent is greater than 50% in coordination of care (as documented) at patient's floor/unit and/or counseling patient: 25 - 35 minutes
[2017-12-25] MEDS: TBO-FILGRASTIM 480mcg/0.8ml INJECTION SQ SCH (19:52)
[2017-12-26] MEDS: INSULIN ASPART 100unit/ml INJECTION SQ PRN ×3 (00:14→13:47)
[2017-12-26] MEDS: METHYLPREDNISOLONE SOD SUCC 125mg/2ml INJECTION IVP SCH ×3 (00:55→18:50)
[2017-12-26] MEDS: ALBUTEROL/IPRATROPIUM 2.5mg-0.5mg/3ml NEB AEROSOL SCH ×6 (03:05→23:38)
[2017-12-26] MEDS: SODIUM BICARBONATE 50 MEQ in D5W 1,000 ML IV SCH (04:46)
[2017-12-26] MEDS ORDERED: CALCIUM GLUCONATE 2,000 MG in NS 100 ML IV ONE (05:03)
--- NOTE | 2017-12-26 08:09 | Progress Note ---
- Date 12/26/17 Subjective: The patient was seen this morning in his room accompanied by his nurse. He states he is feeling "rough". He complains of thirst and some shortness of breath. He is more edematous today. Urine output was only 600 ML's yesterday. He denied any nightmares last night. He was able to drink about 840 ML's yesterday. He has had some occasional nausea. He has not had a bowel movement recently despite when necessary lactulose. He has not eaten any solid foods. Objective Vital signs: Temperature 97.9 F 12/26/17 04:10 Pulse Rate 113 H 12/26/17 07:00 Respiratory Rate 14 12/26/17 07:00 Blood Pressure 120/74 12/26/17 07:00 Pulse Oximetry 95 12/26/17 07:00 Rhythm: Normal Sinus Rhythm, Sinus Tachycardia Height/Weight/BMI: Height 1.7 m Weight 81.6 kg Body Mass Index 28.2 Comments: Weight today is pending. I&O yesterday 3068/620 GEN-alert, mildly confused, no acute distress HEENT-sclera anicteric, oropharynx is moist NECK-supple CV-tachycardic rate with irregular rhythm CHEST-clear to auscultation anteriorly ABD-soft, mildly distended, nontender with positive bowel sounds -Rivas in place, decreased urine output yesterday EXT-increasing edema, especially in his legs NEURO-generalized weakness SKIN-warm and dry Results - Labs CBC & Chem 7: 12/26/17 04:02 12/26/17 04:02 Labs: Calcium is 5.9, ionized calcium 0.73, phosphorus is 4.9, albumin is 3.0 Microbiology Results: Microbiology 12/10/17 15:57 Peripheral/Iv Start Blood Culture - Final No Growth After 5 Days 12/10/17 16:00 Peripheral/Iv Start Blood Culture - Final No Growth After 5 Days 12/07/17 12:45 Sputum, Expectorated Gram Stain - Final 12/07/17 12:45 Sputum, Expectorated Sputum Culture - Final Pseudomonas aeruginosa Haemophilus influenzae Staphylococcus aureus Normal Resp Pallavi incl. Yeast 12/07/17 18:13 Urine Legionella Urinary Antigen - Final 12/07/17 18:13 Urine Streptococcus pneumoniae Antigen (M - Final Assessment and Plan (1) Septic shock Current visit: Yes Status: Acute (2) Pneumonia Current visit: Yes Status: Acute (3) Neuroendocrine carcinoma metastatic to liver Problem details: Lung/liver/bone involvement Current visit: Yes Status: Acute Assessment and Plan: IMPRESSION Sepsis secondary to Right sided pneumonia Septic shock based on lactate of 4.5 (per CMS) Severe sepsis based on 2016 Surviving Sepsis Guidelines Organ dysfunction = MAP <70, hyperbilirubinemia (2.4), thrombocytopenia ( 16) SOFA on admission = 7, presumed baseline of 0 Pneumonia -right upper lobe and right lower lobe-sputum positive for Pseudomonas , Haemophilus, and MSSA; Completed 14 days of cefepime, Levaquin, and vancomycin on 12/20. 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 Chemotherapy 12/16- for neuroendocrine malignancy. Pancytopenia (POA) including platelet count of 16, WBC 3.7, and hgb of 8.9 on admission Hyperbilirubinemia, elevated AST and Alk phos, POA Hypercalcemia-Zometa given 12/13--> hypocalcemia Hypoalbuminemia-improved with albumin IV Elevated LDH Elevated CRP and procalcitonin, secondary to acute infection Severe PCM - prealbumin undetectable Thrush Macrocytic anemia Rheumatoid arthritis-Imuran/Enbrel Acute on chronic Hyponatremia (POA) (baseline 131-134)-resolved Hypokalemia-12/19/17 Epistaxis, minor-12/20/17, resolved Pupil asymmetry noted 12/20, CT head without acute pathology. Immunocompromised pt-neutropenic, recent chemotherapy-start Levaquin prophylactically on 12/24/2017 Encephalopathy-improving Sinus tachycardia Dysphagia-speech therapy consulted Volume overload/anasarca-worsening today, we'll give cautious Bumex and decrease IV fluid rate to 50. Hypernatremia-12/21/17-slowly improving with D5W with 1 amp bicarbonate and increased oral intake Metabolic acidosis-12/21/17-mild improvement with IV fluids with bicarbonate Acute Hypoxia respiratory failure-currently on 15 L; BiPAP when necessary initiated 12/18 LIEN-urine output decreased yesterday. We'll give cautious Bumex today. Recheck labs Hypocalcemia without symptoms-given IV calcium gluconate 2 g yesterday and 2 g this morning. Still on oral calcium Hyperuricemia -received rasburicase IV and uric acid level now normal Hyperglycemia secondary to steroids and D5W 12/26/2017 PLAN Clinically, the patient appears more edematous today. Will decrease IV fluid rate to 50. Will get Bumex 1 mg IV 1 now and recheck renal panel later today. Patient was given 2 g of calcium gluconate IV this morning. We'll recheck this afternoon. The patient is asymptomatic from hypocalcemia. Vitamin D levels are pending. Oral intake has increased. Encourage supplement shakes for added nutrition. Platelets are better today. He did receive a platelet pack yesterday. No bleeding noted yesterday or today. Patient continues to require 15 L per high flow nasal cannula. Solu-Medrol decreased yesterday. Regarding severe neutropenia, Continue G-CSF (initiated 12/19). Neutropenic precautions initiated 12/21. Anemia is stable Uric acid normalized-continue allopurinol. Hypernatremia is better, decrease IV fluid rate to 50. Considered DC IV fluids if blood pressure is stable Recheck renal panel later today. Continue Levaquin for prophylaxis while patient is neutropenic Nystatin suspension for management of thrush while neutropenic. Continue daily CBC and renal panel. Continue sliding scale insulin for hyperglycemia The patient is critically ill. Greater than 45 minutes of critical care time spent seeing and evaluating the patient, determining care plan Prognosis remains guarded. DVT Prophylaxis: SCD's GI Prophylaxis: Protonix Resuscitation Status: Do Not Resuscitate - Physician Narrative Physician: Didi Jolly MD Narrative: Date: 12/26/17 Time: 0805 Hospital Course Summary Disclaimer: The visit summary below is not to be considered part of the above Progress Note. Hospital Course: 12/07/17 Admit, inpatient status, to CCU; Patient is critically ill. Dr. Vivar attending. Septic shock based on CMS and Severe Sepsis based on Surviving Sepsis He received full 30 mL/kg bolus in ED. If unable to keep MAP >65, will need to start norepinephrine, which would indicate shock based on 2016 rec. Initial lactate was 4.5; if lactate is still elevated >4 on recheck, this would also indicate shock based on 2016 recommendations. Blood cultures already drawn. Repeat physical exam done. Repeat procalcitonin in am. Sinus tachycardia has improved after fluid boluses, from 138-105. Right sided pneumonia in an immunocompromised patient with significant smoking history. Cefepime was started in the ED -- will continue with this and add vancomycin and levofloxacin d/t immunocompromised state. Check for strep pneumo and legionella. Check sputum culture. Consult Dr. Mckinney; suspect he may require additional respiratory intervention and with smoking hx likely has underlying COPD. Ev Pan. Ask RT to provide tobacco cessation information. Nicotine patch ordered. Hold RA medications including Enbrel & Imuran. Pancytopenia Suspect d/t sepsis. If no improvement in next few days consider heme consultation. Platelets only 16 on admission. Will give platelet pack x1. Lovenox is contraindicated. SCD for DVT prevention. Macrocytic anemia - check iron studies, folate, vitamin B12. Hyperbilirubinemia Suspect d/t sepsis. Hepatomegaly and RUQ tenderness. He had liver sonogram in Aug, 2017 which was normal. Check INR. Hyponatremia and hypercalcemia Suspect d/t dehydration. Continue IVF and check in am. Advanced directives None. Requests full resuscitation. 12/08/17 Continue with levofloxacin, cefepime and vancomycin for pulmonary coverage. Neb treatments and acapella to continue. Monitor saturations and work of breathing - on 2L currently. Will have speech check swallow secondary to coughing with swallow. Hemoglobin decreased to 6.7 - transfusion initiated. Iron/B12/Folate tests pending. Platelets increased to 30K. Monitor. No Lovenox due to thrombocytopenia. Sodium with slight improvement to 128, but potassium decreased to 3.7. Will change IVF to NS with 20KCl and 20KPhos and decrease rate to 75cc/hr. BP improved. Recheck CMP, Mg, Phos, Procalcitonin, and CBC secondary to resolving septic shock. Continues to need close nursing care and support, continue CCU monitoring. 12/09/17 Continue with levofloxacin, cefepime and vancomycin for pulmonary coverage. Neb treatments and acapella to continue. Monitor saturations and work of breathing - on 2L currently. Start Mycelex lola for thrush. Speech check recommends pureed diet as very difficult to chew foods - may need to upgrade is not liking pureed consistency. Platelets decreased to 20K. Monitor. Give platelet pack. Hemoglobin improved to 8.2 post transfusion yesterday. Sodium improvement to 134, with potassium and phos normal at 4.2 and 4.3 respectively. Continue IVF to NS with 20KCl and 20KPhos but decrease rate to 50cc/hr. BP improved. HR still in 115 range. Start Bladder retraining - possible discontinue Rivas in near future. Start Miralax daily to help bowel function - hold with loose stool. PT/OT consult to help improve strength. Can transfer to medical floor for continuation of care. 12/10/17 The patient became confused last night and was pulling off his oxygen and pulled out his IV. He is more calm at this time but is still confused. With his severity of illness, will transfer back to intensive care when a bed is open. In the meantime will have his nurse stay close to his room and obtain continuous oximetry. Dr. Galarza was called and consulted regarding his pancytopenia. We'll check PTH regarding hypercalcemia. His hypercalcemia is likely worse than it appears since he also has hypoalbuminemia. Hold IV fluids for now. He is 9 L up on fluids. May require diuresis. Continue Rivas catheter for now. Check ammonia level regarding altered mental status. Continue with levofloxacin, cefepime and vancomycin for pneumonia with immunosuppression. Neb treatments and acapella to continue. Monitor saturations and work of breathing - now requiring 4 L PT/OT consult. 12/11/17 The patient had recurrence of elevated lactate yesterday despite continued treatment with triple antibiotics. Heart rate was back up to 130. The patient was given IV fluids. This morning hemoglobin is dropped to 7.9 and platelets are 18,000. Discussed with Dr. Galarza and we will give 1 platelet pack and 1 unit of blood. There is concern for occult malignancy and we will obtain a CT head, chest, abdomen and pelvis all without contrast today. Regarding his elevated calcium, PTH was low. Await results of CAT scans. Regarding Pseudomonas and MSSA pneumonia, continue Levaquin. Stop cefepime. Continue vancomycin for now until blood cultures have returned. 12/12/17 Continue levofloxacin and vancomycin for antimicrobial coverage. Dr Galarza considering initiation of chemotherapy. Discussed with Dr Galarza about patient significantly declined status-concern currently too ill to start chemo. Worry that a large component of patient's acute problems are due to his cancerous process - uncertain if will make much gains without treating cancer, but uncertain how well he could tolerate chemo. Ultimately decided to wait until final path report returns before initiating chemo. Dr Galarza starting treatments to help protect from tumor lysis. IVF change to D5W with 2amps Bicarb at 75cc/hr to alkalinize urine. 12/13/17 More somnolent and weak this afternoon. Oral drive decreased. Continue levofloxacin and vancomycin for antimicrobial coverage. Increase rate of D5W with 2amps Bicarb to 100 cc/hr. Did give Lasix 20mg IV to help minimize edema and increase urine output. Zometa initiated by Dr Galarza to help hypercalcemia. Cautious oral intake secondary to somnolence. Continue pain control. Restart cefepime due to worsening pneumonia. 12/14/17 Dr Samayoa discussed with family - with small cell cancer, only hope for survival is chemotherapy. With patient's significant decline, uncertain if pt could survive chemo. Will continue with antimicrobial therapy. Add Solu-Medrol to try to decrease pulmonary inflammation. Platelet transfusion given due to declining platelets of 15. IVF changed to D5 1/2NS at 75. Lasix given earlier to help motivate fluid. Will repeat dose this evening. 12/15/17 More somnolent today. Speech evaluated patient-recommends NPO (to somnolent and weak to attempt swallow). O2 needs increasing - 6L. Creatine with increase to 1.5, urine output decreasing. Platelets 27 after 2 platelet pack transfusion yesterday. HGB 7.9. Oncology planning chemotherapy this afternoon - high risk for complications, but not likely to survive without treating his cancer. Discussed with about code status. Would recommend DNR as if patient would arrest, feel resuscitative measures would be futile. needs to discuss with family about this. Will continue with antimicrobial therapy and Solu-Medrol. 12/16/17 Oncology planning chemotherapy this afternoon - high risk for complications, but not likely to survive without treating his cancer. Discussed with about code status. Would recommend DNR as if patient would arrest, feel resuscitative measures would be futile. needs to discuss with family about this. Will continue with antimicrobial therapy and Solu-Medrol. 12/17/17 Family has elected to convert to DO NOT RESUSCITATE status. Chemotherapy initiated with etoposide and carboplatin; platelets being given today for count of 20. Ongoing antibiotic therapy-day 11. Persistent dysphasia with minimal oral intake, Dobbhoff to be placed. 12/18/17 Persistent pancytopenia; day 3 chemotherapy, day 12 triple antibiotics for sepsis. Oxygen demand increasing, creatinine climbing-converted to Bumex with albumin to attempt to diurese. Chest x-ray with increasing pleural effusions and pulmonary edema. Unable to place Dobbhoff and volume status precludes TPN. Prognosis guarded at best. 12/19/17 Date 13 antibiotics with cefepime, Levaquin, and vancomycin. Remains on high dose methylprednisolone for respiratory distress. Dependent on high flow oxygen/BiPAP. Chemotherapy 12/16-12/18 for neuroendocrine malignancy. G-CSF initiated 12/19. Remains pancytopenic, 1 unit packed red blood cells today. Will require platelets if any evidence of blood loss. Anticipate platelet transfusion tomorrow. Calcium stable following treatment. Urine output improving with albumin/Bumex; BUN climbing-continue regimen today but may not be able to continue if uremia progresses. IV fluids discontinued; supplement potassium IV due to inability to take oral medications. Repeat chest x-ray in a.m. 12/20/17 Remains pancytopenic, 1 unit packed red blood cells yesterday. Platelet pack today; Afrin nasal spray as needed for minor epistaxis-no ongoing bleeding this morning. Pupil asymmetry not previously present-mental status has not deteriorated compared to yesterday or the prior day and if anything patient may be slightly more alert but with thrombocytopenia will require CT head. Will also image abdomen/pelvis due to persistent/increasing abdominal pain to exclude intra-abdominal bleed. No contrast to be given. Calcium stable following treatment. Urine output improved with albumin/Bumex; however BUN climbing. Continue albumin but will hold Bumex today. Mycelex troches discontinued nursing request, will coated tongue with nystatin suspension for management of thrush will remains on antibiotics or neutropenic. 12/21/17 Completed 14 days of cefepime, Levaquin, and vancomycin on 12/20. Remains on high dose methylprednisolone for respiratory distress. Dependent on high flow oxygen/BiPAP. Chest x-ray/exam slightly improved from pulmonary perspective. Chemotherapy 12/16-12/18 for neuroendocrine malignancy. G-CSF initiated 12/19. Neutropenic precautions initiated 12/21. Remains pancytopenic, requires blood products intermittently-will receive packed red blood cells and platelets today. Pupil asymmetry noted yesterday, CT head without acute pathology. Will discuss MRI brain with Dr. Galarza. Abdominal imaging yesterday compatible with volume overload/anasarca but no evidence of acute intra-abdominal process or hemorrhage. Sodium climbing and potassium down with attempted diuresis-D5 with KCl initiated , electrolytes to be reevaluated later in the day. Diuretics discontinued yesterday, albumin infusions decreased to 12.5 g every 8 hours. 12/22/17 Remains pancytopenic, requires blood products intermittently-will receive platelets again today. Uric acid slightly better today after IV dose of Rasburicase yesterday-redose tomorrow if no further improvement; taking allopurinol. Pupil asymmetry noted 12/20, CT head without acute pathology. Sodium stable/slightly improved with D5 infusion; potassium has corrected. Persistent metabolic acidosis consistent with renal failure. Urine output acceptable off diuretics, continue low-dose albumin due to extensive third spacing of fluids. If creatinine/BUN rise further will require volume replacement. Calcium low however I'm reluctant to treat with calcium given elevated phosphorus-continue to monitor. Mycelex troches discontinued several days ago; nystatin suspension for management of thrush while neutropenic. Given improvement in mental status and patient interest in food will resume speech therapy. PICC line to be withdrawn 4-5 cm based on chest x-ray findings. 12/23/2017 PLAN Completed 14 days of cefepime, Levaquin, and vancomycin on 12/20. Remains on methylprednisolone for respiratory failure. Dependent on high flow oxygen/BiPAP. Chemotherapy 12/16-12/18 for neuroendocrine malignancy. G-CSF initiated 12/19. Neutropenic precautions initiated 12/21. Remains pancytopenic, requires blood products intermittently-receive platelets yesterday, will replace again today. Uric acid slightly better today after IV dose of Rasburicase-taking allopurinol. Pupil asymmetry noted 12/20, CT head without acute pathology. Discussed acute kidney injury with anasarca with nephrology. Recommended D5W to help with hypernatremia. Recommended discontinuation of albumin at this time now that albumin is over 3. Could repeat IV albumin if albumin level drops below 3. Would give intermittent IV Bumex if needed for worsening urine output or hypoxia. Will obtain chest x-ray tomorrow. Discussed hypocalcemia with nephrology as well, will give Tums with meals and check a vitamin D level. If vitamin D level is low, start vitamin D. We'll still need to monitor closely for recurrence of hypercalcemia. If patient becomes symptomatic from hypocalcemia, can give IV calcium. Mycelex troches discontinued several days ago; nystatin suspension for management of thrush while neutropenic. Encourage oral nutrition, speech therapy has been consulted. Discussed thrombocytopenia and dark blood in posterior pharynx with Dr. Galarza, he recommends platelet transfusion today. Case discussed with CCU nursing, nephrology and oncology. The patient is critically ill. Greater than 45 minutes of critical care time spent seeing and evaluating the patient, determining care plan and discussing with consultants. Prognosis remains guarded. 12/24/2017 PLAN Start Levaquin prophylactically regarding neutropenia Remains on methylprednisolone and breathing treatments for respiratory failure. Chest x-ray is slowly improving. Dependent on high flow oxygen/BiPAP. Continue G-CSF (initiated 12/19). Neutropenic precautions initiated 12/21. Remains pancytopenic, requires blood products intermittently-receive platelets yesterday. Uric acid normalized-continue allopurinol. Hypocalcemia without symptoms-given IV calcium gluconate 1 g times one yesterday. Oral calcium initiated. Vitamin D levels pending Regarding worsening hypernatremia, increase D5W to 100 ML's per hour Discussed acute kidney injury with anasarca with nephrology 12/23/2017. Recommended D5W to help with hypernatremia. Recommended discontinuation of albumin at this time now that albumin is over 3. Could repeat IV albumin if albumin level drops below 3. Repeat renal panel this afternoon Would give intermittent IV Bumex if needed for worsening urine output or hypoxia. Nystatin suspension for management of thrush while neutropenic. Encourage oral nutrition, speech therapy has been consulted. Continue daily CBC and renal panel. Check liver enzymes tomorrow. LDH is slowly improving Increase sliding scale insulin for hyperglycemia Case discussed with CCU nursing, and Dr. Galarza. The patient is critically ill. Greater than 45 minutes of critical care time spent seeing and evaluating the patient, determining care plan and discussing with consultants. Prognosis remains guarded. 12/25/2017 PLAN Clinically the patient appears stable. He continues to have good urine output without diuretics or albumin. BUN and creatinine remain elevated at 103 and 2.4 respectively. Patient continues to have fairly severe pancytopenia and white count today is 0. Hemoglobin 7.2. Platelets are 5. Fortunately, he has not had any bleeding overnight. By mouth intake is intermittent and we are encouraging increased caloric intake. Unable to place Dobbhoff. We'll start a multivitamin once daily. Due to nightmares, we'll discontinue morphine at patient's request. We'll have when necessary Dilaudid available if needed. Remains on methylprednisolone and breathing treatments for respiratory failure, consider decreasing steroids. Chest x-ray is slowly improving. Dependent on high flow oxygen/BiPAP. Continue G-CSF (initiated 12/19). Neutropenic precautions initiated 12/21. Remains pancytopenic, requires blood products intermittently-give platelets today for platelet count of 5 Uric acid normalized-continue allopurinol. Hypocalcemia without symptoms-give IV calcium again today. Oral calcium initiated. Vitamin D levels pending Regarding hypernatremia and metabolic acidosis, continue D5W with 1 amp of bicarbonate Recheck renal panel later today. Would give intermittent IV Bumex if needed for worsening urine output or hypoxia. Nystatin suspension for management of thrush while neutropenic. Encourage oral nutrition, speech therapy has been consulted. Continue daily CBC and renal panel. Continue sliding scale insulin for hyperglycemia The patient is critically ill. Greater than 45 minutes of critical care time spent seeing and evaluating the patient, determining care plan Prognosis remains guarded. 12/26/2017 PLAN Clinically, the patient appears more edematous today. Will decrease IV fluid rate to 50. Will get Bumex 1 mg IV 1 now and recheck renal panel later today. Patient was given 2 g of calcium gluconate IV this morning. We'll recheck this afternoon. The patient is asymptomatic from hypocalcemia. Vitamin D levels are pending. Oral intake has increased. Encourage supplement shakes for added nutrition. Platelets are better today. He did receive a platelet pack yesterday. No bleeding noted yesterday or today. Patient continues to require 15 L per high flow nasal cannula. Solu-Medrol decreased yesterday. Regarding severe neutropenia, Continue G-CSF (initiated 12/19). Neutropenic precautions initiated 12/21. Anemia is stable Uric acid normalized-continue allopurinol. Hypernatremia is better, decrease IV fluid rate to 50. Considered DC IV fluids if blood pressure is stable Recheck renal panel later today. Continue Levaquin for prophylaxis while patient is neutropenic Nystatin suspension for management of thrush while neutropenic. Continue daily CBC and renal panel. Continue sliding scale insulin for hyperglycemia The patient is critically ill. Greater than 45 minutes of critical care time spent seeing and evaluating the patient, determining care plan Prognosis remains guarded.
[2017-12-26] MEDS: SALINE FLUSH 10ml SYRINGE IV PRN ×5 (08:58→18:53)
[2017-12-26] MEDS: LACTULOSE 20 GM/30 ML ORAL LIQUID PO PRN ×2 (08:59→20:04)
[2017-12-26] MEDS: POLYETHYL GLYCOL 3350 17gm PACKET PO SCH (09:01)
[2017-12-26] MEDS: PANTOPRAZOLE 40 MG INJECTION IVP SCH (09:03)
[2017-12-26] MEDS: NICOTINE PATCH REMOVAL TD SCH (09:05)
[2017-12-26] MEDS: NYSTATIN 500,000 units/5 ml ORAL LIQUID PO SCH ×4 (09:05→20:04)
[2017-12-26] MEDS: NICOTINE 21 MG PATCH TD SCH (09:06)
[2017-12-26] MEDS: MULTI-VITAMIN + MINERAL TABLET PO SCH (09:09)
[2017-12-26] MEDS: ALLOPURINOL 100 MG TABLET PO SCH (09:10)
[2017-12-26] MEDS: LEVOFLOXACIN PB 750 MG/150 ML BAG IV SCH (09:12)
[2017-12-26] MEDS: SALINE 0.65% NASAL SPRAY 44 ML BOTTLE EA NOSTRIL SCH ×4 (09:23→20:04)
[2017-12-26] MEDS: HYDROMORPHONE 2 MG/ML INJECTION IVP PRN ×2 (10:14→17:09)
--- NOTE | 2017-12-26 11:48 | Progress Note ---
Oncology Subjective Doing somewhat better. He is more alert. He is short of breath with minimal exertion. She has not been out of bed yet. Exam Vital signs: Temperature 97.9 F 12/26/17 04:10 Pulse Rate 116 H 12/26/17 08:00 Respiratory Rate 18 12/26/17 09:18 Blood Pressure 120/74 12/26/17 07:00 Pulse Oximetry 95 12/26/17 09:18 - Constitutional no acute distress Comments: He requires respiratory suction and respiratory support. - Routine Respiratory Exam Present: respiratory distress, rhonchi, stridor, wheezes, crackles - Routine Cardiovascular Exam Present: RRR, no murmur - Routine Abdominal Exam Present: soft - Routine Extremities Exam Present: edema Comments: Severe lower extremity edema. Significant fluid retention in the legs. - Routine Neurological Exam Present: alert Oncology Results - Labs CBC & Chem 7: 12/26/17 04:02 12/26/17 04:02 Labs: Short CBC 12/25/17 12/26/17 Range/Units 13:07 04:02 WBC 0.0 L* (4.5-11.0) T/MM3 Hgb 7.3 L (13.5-17.5) GM/DL Hct 22.0 L (41-53) % Plt Count 33 L D 22 L* (130-400) T/MM3 BMP 12/25/17 12/25/17 12/26/17 13:07 16:24 04:02 Sodium 140 D 148 H D 146 H Potassium 3.5 L 3.7 3.5 L Chloride 102 D 109 H D 107 Carbon Dioxide 23 22 21 L BUN 96.0 H* 102.0 H* 103.0 H* Creatinine 2.1 H D 2.3 H D 2.3 H Glucose 463 H 200 H 129 H Calcium 5.3 L* 5.7 L* 5.9 L* Liver Function 12/25/17 12/25/17 12/26/17 Range/Units 13:07 16:24 04:02 Albumin 2.8 L 3.1 L 3.0 L (3.5-5.0) g/dL Assessment and Plan Assessment and Plan: Assessment and plan: 1. 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 2. Chemotherapy-induced severe neutropenia with ANC of 0.0. He remains afebrile. On Levaquin. The patient was treated with cefepime and Vanco Levaquin for Pseudomonas, Haemophilus influenza, MRSA. -Continue G-CSF until ANC more than 1.5. -May consider switched to cefepime for good Pseudomonas coverage requirements severely neutropenic. 3. Renal insufficiency, stable. We'll continue supportive care. - Time Spent With Patient Total time spent is greater than 50% in coordination of care (as documented) at patient's floor/unit and/or counseling patient: less than 15 minutes
[2017-12-26] MEDS: CALCIUM 600 + VIT D 400 TABLET PO SCH ×2 (12:47→20:04)
[2017-12-26] MEDS: METOCLOPRAMIDE 10mg/2ml INJECTION IVP PRN (15:57)
[2017-12-26] MEDS ORDERED: CONTAINER EMPTY IV ONE (16:10)
[2017-12-26] MEDS ORDERED: ALBUMIN HUMAN IV ONE (16:10)
[2017-12-26] MEDS ORDERED: CALCIUM GLUCONATE 1,000 MG in NS 50 ML IV ONE (16:58)
[2017-12-26] MEDS: TBO-FILGRASTIM 480mcg/0.8ml INJECTION SQ SCH (20:05)
[2017-12-27] MEDS: INSULIN ASPART 100unit/ml INJECTION SQ PRN ×3 (00:17→13:04)
[2017-12-27] MEDS: METHYLPREDNISOLONE SOD SUCC 125mg/2ml INJECTION IVP SCH ×3 (00:17→16:34)
[2017-12-27] MEDS: ALBUTEROL/IPRATROPIUM 2.5mg-0.5mg/3ml NEB AEROSOL SCH ×6 (03:25→23:26)
[2017-12-27] MEDS: HYDROMORPHONE 2 MG/ML INJECTION IVP PRN (07:53)
[2017-12-27] MEDS: SALINE FLUSH 10ml SYRINGE IV PRN ×6 (07:55→19:50)
[2017-12-27] MEDS: PANTOPRAZOLE 40 MG INJECTION IVP SCH (08:00)
[2017-12-27] MEDS ORDERED: RENAL DOSING - PHARMACY CONSULT MC ONE (08:05)
[2017-12-27] MEDS ORDERED: CEFEPIME 1 GM in NS 100 ML IV SCH (08:15)
--- NOTE | 2017-12-27 08:20 | Progress Note ---
- Date 12/27/17 Subjective: Mr. Baker was seen this morning in CCU. He is on BIPAP. He complains of shortness of breath and lower abdominal pain. He was able to take in 510 mL's of fluid orally yesterday. He had put with Bumex yesterday. He has continued edema of his extremities and increased scrotal edema today. There is some excoriation of his skin on the posterior aspect of his scrotum. He was otherwise stable overnight and was on either BiPAP or 11 L per nasal cannula. No recent bowel movements despite lactulose and MiraLAX. Objective Vital signs: Temperature 98.1 F 12/27/17 00:13 Pulse Rate 131 H 12/27/17 07:00 Respiratory Rate 17 12/27/17 07:27 Blood Pressure 142/82 H 12/27/17 07:00 Pulse Oximetry 98 12/27/17 07:27 Rhythm: Normal Sinus Rhythm, Sinus Tachycardia Height/Weight/BMI: Height 1.7 m Weight 82.9 kg Body Mass Index 28.2 Comments: I&O yesterday 182/1603 Oral intake 510 ML's GEN-alert, on BiPAP, no acute distress HEENT-on BiPAP CV-tachycardic rate with irregular rhythm CHEST-clear anteriorly ABD-soft, moderate distention, positive bowel sounds -Rivas in place, scrotal edema with excoriation, skin breakdown over the posterior scrotum. EXT-3-4+ edema in the legs is unchanged. 2+ edema in the arms NEURO-generalized weakness SKIN-warm and dry. Skin over the legs is tight from edema. Excoriation/mild skin breakdown at the posterior scrotum as described above. Results - Labs CBC & Chem 7: 12/27/17 04:04 12/27/17 04:04 Labs: Calcium 6.2. Phosphorus 4.6. Magnesium 1.9. Bilirubin 2.3. Albumin 2.7. Anion gap 15 Microbiology Results: Microbiology 12/10/17 15:57 Peripheral/Iv Start Blood Culture - Final No Growth After 5 Days 12/10/17 16:00 Peripheral/Iv Start Blood Culture - Final No Growth After 5 Days 12/07/17 12:45 Sputum, Expectorated Gram Stain - Final 12/07/17 12:45 Sputum, Expectorated Sputum Culture - Final Pseudomonas aeruginosa Haemophilus influenzae Staphylococcus aureus Normal Resp Pallavi incl. Yeast 12/07/17 18:13 Urine Legionella Urinary Antigen - Final 12/07/17 18:13 Urine Streptococcus pneumoniae Antigen (M - Final Assessment and Plan (1) Septic shock Current visit: Yes Status: Acute (2) Pneumonia Current visit: Yes Status: Acute (3) Neuroendocrine carcinoma metastatic to liver Problem details: Lung/liver/bone involvement Current visit: Yes Status: Acute Assessment and Plan: IMPRESSION Sepsis secondary to Right sided pneumonia Septic shock based on lactate of 4.5 (per CMS) Severe sepsis based on 2016 Surviving Sepsis Guidelines Organ dysfunction = MAP <70, hyperbilirubinemia (2.4), thrombocytopenia ( 16) SOFA on admission = 7, presumed baseline of 0 Pneumonia -right upper lobe and right lower lobe-sputum positive for Pseudomonas , Haemophilus, and MSSA; Completed 14 days of cefepime, Levaquin, and vancomycin on 12/20. 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 Chemotherapy 12/16- for neuroendocrine malignancy. Pancytopenia (POA) including platelet count of 16, WBC 3.7, and hgb of 8.9 on admission Hyperbilirubinemia, elevated AST and Alk phos, POA Hypercalcemia-Zometa given 12/13--> hypocalcemia Hypoalbuminemia-improved with albumin IV Elevated LDH Elevated CRP and procalcitonin, secondary to acute infection Severe PCM - prealbumin undetectable Thrush Macrocytic anemia Rheumatoid arthritis-Imuran/Enbrel Acute on chronic Hyponatremia (POA) (baseline 131-134)-resolved Hypokalemia-12/19/17 Epistaxis, minor-12/20/17, resolved Pupil asymmetry noted 12/20, CT head without acute pathology. Immunocompromised pt-neutropenic, recent chemotherapy-start Levaquin prophylactically on 12/24/2017, will switch to cefepime 12/27/2017 for better Pseudomonas coverage with history of Pseudomonas. Encephalopathy-improving Sinus tachycardia Dysphagia-speech therapy consulted Volume overload/anasarca-worsening today Hypernatremia-12/21/17-slowly improving Metabolic acidosis-12/21/17-mild improvement with IV fluids with bicarbonate- currently resolved Acute Hypoxia respiratory failure-currently on 11 L; BiPAP when necessary initiated 3/9 LIEN-stable. With good urine output with when necessary Bumex. Hypocalcemia without symptoms-given IV calcium gluconate with slow improvement. Still on oral calcium Hyperuricemia -received rasburicase IV and uric acid level now normal Hyperglycemia secondary to steroids 12/26/2017 PLAN Patient continues to have significant edema today. He was given Bumex 1 g IV 2 yesterday and D5 W with bicarbonate was discontinued yesterday. He had a fall in hemoglobin to 6.5 from 7.3. Will transfuse one unit of blood and follow with Bumex. Platelets have decreased to 7 today and will transfuse a unit of platelets. With lower abdominal pain, will check urinalysis and abdominal film. Recheck chest x-ray regarding hypoxia. Renal function is essentially stable with discontinuation of IV fluids and addition of Bumex yesterday. Regarding mild hypokalemia, will replace potassium orally Encourage by mouth intake with nutrition Albumin is down to 2.7 today. Consider IV albumin followed by Bumex later today after blood transfusion. Give calcium gluconate IV 1 today. Recheck renal panel at 3 PM today. Will discuss with Dr. Samayoa. Calmoseptine for skin breakdown over the scrotum. Will ask wound and skin team to see the patient tomorrow. Continue neutropenic cautions and Granix for severe neutropenia with white count of 0 again today. Prognosis remains guarded. The patient is critically ill. Greater than 45 minutes of critical care time spent seeing and evaluating the patient today. DVT Prophylaxis: SCD's GI Prophylaxis: Protonix Resuscitation Status: Do Not Resuscitate - Physician Narrative Physician: Didi Jolly MD Narrative: Date: 12/27/17 Time: 0815 Hospital Course Summary Disclaimer: The visit summary below is not to be considered part of the above Progress Note. Hospital Course: 12/07/17 Admit, inpatient status, to CCU; Patient is critically ill. Dr. Vivar attending. Septic shock based on CMS and Severe Sepsis based on Surviving Sepsis He received full 30 mL/kg bolus in ED. If unable to keep MAP >65, will need to start norepinephrine, which would indicate shock based on 2016 rec. Initial lactate was 4.5; if lactate is still elevated >4 on recheck, this would also indicate shock based on 2016 recommendations. Blood cultures already drawn. Repeat physical exam done. Repeat procalcitonin in am. Sinus tachycardia has improved after fluid boluses, from 138-105. Right sided pneumonia in an immunocompromised patient with significant smoking history. Cefepime was started in the ED -- will continue with this and add vancomycin and levofloxacin d/t immunocompromised state. Check for strep pneumo and legionella. Check sputum culture. Consult Dr. Mckinney; suspect he may require additional respiratory intervention and with smoking hx likely has underlying COPD. Acapella, DuoNeb. Ask RT to provide tobacco cessation information. Nicotine patch ordered. Hold RA medications including Enbrel & Imuran. Pancytopenia Suspect d/t sepsis. If no improvement in next few days consider heme consultation. Platelets only 16 on admission. Will give platelet pack x1. Lovenox is contraindicated. SCD for DVT prevention. Macrocytic anemia - check iron studies, folate, vitamin B12. Hyperbilirubinemia Suspect d/t sepsis. Hepatomegaly and RUQ tenderness. He had liver sonogram in Aug, 2017 which was normal. Check INR. Hyponatremia and hypercalcemia Suspect d/t dehydration. Continue IVF and check in am. Advanced directives None. Requests full resuscitation. 12/08/17 Continue with levofloxacin, cefepime and vancomycin for pulmonary coverage. Neb treatments and acapella to continue. Monitor saturations and work of breathing - on 2L currently. Will have speech check swallow secondary to coughing with swallow. Hemoglobin decreased to 6.7 - transfusion initiated. Iron/B12/Folate tests pending. Platelets increased to 30K. Monitor. No Lovenox due to thrombocytopenia. Sodium with slight improvement to 128, but potassium decreased to 3.7. Will change IVF to NS with 20KCl and 20KPhos and decrease rate to 75cc/hr. BP improved. Recheck CMP, Mg, Phos, Procalcitonin, and CBC secondary to resolving septic shock. Continues to need close nursing care and support, continue CCU monitoring. 12/09/17 Continue with levofloxacin, cefepime and vancomycin for pulmonary coverage. Neb treatments and acapella to continue. Monitor saturations and work of breathing - on 2L currently. Start Mycelex lola for thrush. Speech check recommends pureed diet as very difficult to chew foods - may need to upgrade is not liking pureed consistency. Platelets decreased to 20K. Monitor. Give platelet pack. Hemoglobin improved to 8.2 post transfusion yesterday. Sodium improvement to 134, with potassium and phos normal at 4.2 and 4.3 respectively. Continue IVF to NS with 20KCl and 20KPhos but decrease rate to 50cc/hr. BP improved. HR still in 115 range. Start Bladder retraining - possible discontinue Rivas in near future. Start Miralax daily to help bowel function - hold with loose stool. PT/OT consult to help improve strength. Can transfer to medical floor for continuation of care. 12/10/17 The patient became confused last night and was pulling off his oxygen and pulled out his IV. He is more calm at this time but is still confused. With his severity of illness, will transfer back to intensive care when a bed is open. In the meantime will have his nurse stay close to his room and obtain continuous oximetry. Dr. Galarza was called and consulted regarding his pancytopenia. We'll check PTH regarding hypercalcemia. His hypercalcemia is likely worse than it appears since he also has hypoalbuminemia. Hold IV fluids for now. He is 9 L up on fluids. May require diuresis. Continue Rivas catheter for now. Check ammonia level regarding altered mental status. Continue with levofloxacin, cefepime and vancomycin for pneumonia with immunosuppression. Neb treatments and acapella to continue. Monitor saturations and work of breathing - now requiring 4 L PT/OT consult. 12/11/17 The patient had recurrence of elevated lactate yesterday despite continued treatment with triple antibiotics. Heart rate was back up to 130. The patient was given IV fluids. This morning hemoglobin is dropped to 7.9 and platelets are 18,000. Discussed with Dr. Galarza and we will give 1 platelet pack and 1 unit of blood. There is concern for occult malignancy and we will obtain a CT head, chest, abdomen and pelvis all without contrast today. Regarding his elevated calcium, PTH was low. Await results of CAT scans. Regarding Pseudomonas and MSSA pneumonia, continue Levaquin. Stop cefepime. Continue vancomycin for now until blood cultures have returned. 12/12/17 Continue levofloxacin and vancomycin for antimicrobial coverage. Dr Galarza considering initiation of chemotherapy. Discussed with Dr Galarza about patient significantly declined status-concern currently too ill to start chemo. Worry that a large component of patient's acute problems are due to his cancerous process - uncertain if will make much gains without treating cancer, but uncertain how well he could tolerate chemo. Ultimately decided to wait until final path report returns before initiating chemo. Dr Galarza starting treatments to help protect from tumor lysis. IVF change to D5W with 2amps Bicarb at 75cc/hr to alkalinize urine. 12/13/17 More somnolent and weak this afternoon. Oral drive decreased. Continue levofloxacin and vancomycin for antimicrobial coverage. Increase rate of D5W with 2amps Bicarb to 100 cc/hr. Did give Lasix 20mg IV to help minimize edema and increase urine output. Zometa initiated by Dr Galarza to help hypercalcemia. Cautious oral intake secondary to somnolence. Continue pain control. Restart cefepime due to worsening pneumonia. 12/14/17 Dr Samayoa discussed with family - with small cell cancer, only hope for survival is chemotherapy. With patient's significant decline, uncertain if pt could survive chemo. Will continue with antimicrobial therapy. Add Solu-Medrol to try to decrease pulmonary inflammation. Platelet transfusion given due to declining platelets of 15. IVF changed to D5 1/2NS at 75. Lasix given earlier to help motivate fluid. Will repeat dose this evening. 12/15/17 More somnolent today. Speech evaluated patient-recommends NPO (to somnolent and weak to attempt swallow). O2 needs increasing - 6L. Creatine with increase to 1.5, urine output decreasing. Platelets 27 after 2 platelet pack transfusion yesterday. HGB 7.9. Oncology planning chemotherapy this afternoon - high risk for complications, but not likely to survive without treating his cancer. Discussed with about code status. Would recommend DNR as if patient would arrest, feel resuscitative measures would be futile. needs to discuss with family about this. Will continue with antimicrobial therapy and Solu-Medrol. 12/16/17 Oncology planning chemotherapy this afternoon - high risk for complications, but not likely to survive without treating his cancer. Discussed with about code status. Would recommend DNR as if patient would arrest, feel resuscitative measures would be futile. needs to discuss with family about this. Will continue with antimicrobial therapy and Solu-Medrol. 12/17/17 Family has elected to convert to DO NOT RESUSCITATE status. Chemotherapy initiated with etoposide and carboplatin; platelets being given today for count of 20. Ongoing antibiotic therapy-day 11. Persistent dysphasia with minimal oral intake, Dobbhoff to be placed. 12/18/17 Persistent pancytopenia; day 3 chemotherapy, day 12 triple antibiotics for sepsis. Oxygen demand increasing, creatinine climbing-converted to Bumex with albumin to attempt to diurese. Chest x-ray with increasing pleural effusions and pulmonary edema. Unable to place Dobbhoff and volume status precludes TPN. Prognosis guarded at best. 12/19/17 Date 13 antibiotics with cefepime, Levaquin, and vancomycin. Remains on high dose methylprednisolone for respiratory distress. Dependent on high flow oxygen/BiPAP. Chemotherapy 12/16-12/18 for neuroendocrine malignancy. G-CSF initiated 12/19. Remains pancytopenic, 1 unit packed red blood cells today. Will require platelets if any evidence of blood loss. Anticipate platelet transfusion tomorrow. Calcium stable following treatment. Urine output improving with albumin/Bumex; BUN climbing-continue regimen today but may not be able to continue if uremia progresses. IV fluids discontinued; supplement potassium IV due to inability to take oral medications. Repeat chest x-ray in a.m. 12/20/17 Remains pancytopenic, 1 unit packed red blood cells yesterday. Platelet pack today; Afrin nasal spray as needed for minor epistaxis-no ongoing bleeding this morning. Pupil asymmetry not previously present-mental status has not deteriorated compared to yesterday or the prior day and if anything patient may be slightly more alert but with thrombocytopenia will require CT head. Will also image abdomen/pelvis due to persistent/increasing abdominal pain to exclude intra-abdominal bleed. No contrast to be given. Calcium stable following treatment. Urine output improved with albumin/Bumex; however BUN climbing. Continue albumin but will hold Bumex today. Mycelex troches discontinued nursing request, will coated tongue with nystatin suspension for management of thrush will remains on antibiotics or neutropenic. 12/21/17 Completed 14 days of cefepime, Levaquin, and vancomycin on 12/20. Remains on high dose methylprednisolone for respiratory distress. Dependent on high flow oxygen/BiPAP. Chest x-ray/exam slightly improved from pulmonary perspective. Chemotherapy 12/16-12/18 for neuroendocrine malignancy. G-CSF initiated 12/19. Neutropenic precautions initiated 12/21. Remains pancytopenic, requires blood products intermittently-will receive packed red blood cells and platelets today. Pupil asymmetry noted yesterday, CT head without acute pathology. Will discuss MRI brain with Dr. Galarza. Abdominal imaging yesterday compatible with volume overload/anasarca but no evidence of acute intra-abdominal process or hemorrhage. Sodium climbing and potassium down with attempted diuresis-D5 with KCl initiated , electrolytes to be reevaluated later in the day. Diuretics discontinued yesterday, albumin infusions decreased to 12.5 g every 8 hours. 12/22/17 Remains pancytopenic, requires blood products intermittently-will receive platelets again today. Uric acid slightly better today after IV dose of Rasburicase yesterday-redose tomorrow if no further improvement; taking allopurinol. Pupil asymmetry noted 12/20, CT head without acute pathology. Sodium stable/slightly improved with D5 infusion; potassium has corrected. Persistent metabolic acidosis consistent with renal failure. Urine output acceptable off diuretics, continue low-dose albumin due to extensive third spacing of fluids. If creatinine/BUN rise further will require volume replacement. Calcium low however I'm reluctant to treat with calcium given elevated phosphorus-continue to monitor. Mycelex troches discontinued several days ago; nystatin suspension for management of thrush while neutropenic. Given improvement in mental status and patient interest in food will resume speech therapy. PICC line to be withdrawn 4-5 cm based on chest x-ray findings. 12/23/2017 PLAN Completed 14 days of cefepime, Levaquin, and vancomycin on 12/20. Remains on methylprednisolone for respiratory failure. Dependent on high flow oxygen/BiPAP. Chemotherapy 12/16-12/18 for neuroendocrine malignancy. G-CSF initiated 12/19. Neutropenic precautions initiated 12/21. Remains pancytopenic, requires blood products intermittently-receive platelets yesterday, will replace again today. Uric acid slightly better today after IV dose of Rasburicase-taking allopurinol. Pupil asymmetry noted 12/20, CT head without acute pathology. Discussed acute kidney injury with anasarca with nephrology. Recommended D5W to help with hypernatremia. Recommended discontinuation of albumin at this time now that albumin is over 3. Could repeat IV albumin if albumin level drops below 3. Would give intermittent IV Bumex if needed for worsening urine output or hypoxia. Will obtain chest x-ray tomorrow. Discussed hypocalcemia with nephrology as well, will give Tums with meals and check a vitamin D level. If vitamin D level is low, start vitamin D. We'll still need to monitor closely for recurrence of hypercalcemia. If patient becomes symptomatic from hypocalcemia, can give IV calcium. Mycelex troches discontinued several days ago; nystatin suspension for management of thrush while neutropenic. Encourage oral nutrition, speech therapy has been consulted. Discussed thrombocytopenia and dark blood in posterior pharynx with Dr. Galarza, he recommends platelet transfusion today. Case discussed with CCU nursing, nephrology and oncology. The patient is critically ill. Greater than 45 minutes of critical care time spent seeing and evaluating the patient, determining care plan and discussing with consultants. Prognosis remains guarded. 12/24/2017 PLAN Start Levaquin prophylactically regarding neutropenia Remains on methylprednisolone and breathing treatments for respiratory failure. Chest x-ray is slowly improving. Dependent on high flow oxygen/BiPAP. Continue G-CSF (initiated 12/19). Neutropenic precautions initiated 12/21. Remains pancytopenic, requires blood products intermittently-receive platelets yesterday. Uric acid normalized-continue allopurinol. Hypocalcemia without symptoms-given IV calcium gluconate 1 g times one yesterday. Oral calcium initiated. Vitamin D levels pending Regarding worsening hypernatremia, increase D5W to 100 ML's per hour Discussed acute kidney injury with imanisarca with nephrology 12/23/2017. Recommended D5W to help with hypernatremia. Recommended discontinuation of albumin at this time now that albumin is over 3. Could repeat IV albumin if albumin level drops below 3. Repeat renal panel this afternoon Would give intermittent IV Bumex if needed for worsening urine output or hypoxia. Nystatin suspension for management of thrush while neutropenic. Encourage oral nutrition, speech therapy has been consulted. Continue daily CBC and renal panel. Check liver enzymes tomorrow. LDH is slowly improving Increase sliding scale insulin for hyperglycemia Case discussed with CCU nursing, and Dr. Galarza. The patient is critically ill. Greater than 45 minutes of critical care time spent seeing and evaluating the patient, determining care plan and discussing with consultants. Prognosis remains guarded. 12/25/2017 PLAN Clinically the patient appears stable. He continues to have good urine output without diuretics or albumin. BUN and creatinine remain elevated at 103 and 2.4 respectively. Patient continues to have fairly severe pancytopenia and white count today is 0. Hemoglobin 7.2. Platelets are 5. Fortunately, he has not had any bleeding overnight. By mouth intake is intermittent and we are encouraging increased caloric intake. Unable to place Dobbhoff. We'll start a multivitamin once daily. Due to nightmares, we'll discontinue morphine at patient's request. We'll have when necessary Dilaudid available if needed. Remains on methylprednisolone and breathing treatments for respiratory failure, consider decreasing steroids. Chest x-ray is slowly improving. Dependent on high flow oxygen/BiPAP. Continue G-CSF (initiated 12/19). Neutropenic precautions initiated 12/21. Remains pancytopenic, requires blood products intermittently-give platelets today for platelet count of 5 Uric acid normalized-continue allopurinol. Hypocalcemia without symptoms-give IV calcium again today. Oral calcium initiated. Vitamin D levels pending Regarding hypernatremia and metabolic acidosis, continue D5W with 1 amp of bicarbonate Recheck renal panel later today. Would give intermittent IV Bumex if needed for worsening urine output or hypoxia. Nystatin suspension for management of thrush while neutropenic. Encourage oral nutrition, speech therapy has been consulted. Continue daily CBC and renal panel. Continue sliding scale insulin for hyperglycemia The patient is critically ill. Greater than 45 minutes of critical care time spent seeing and evaluating the patient, determining care plan Prognosis remains guarded. 12/26/2017 PLAN Clinically, the patient appears more edematous today. Will decrease IV fluid rate to 50. Will get Bumex 1 mg IV 1 now and recheck renal panel later today. Patient was given 2 g of calcium gluconate IV this morning. We'll recheck this afternoon. The patient is asymptomatic from hypocalcemia. Vitamin D levels are pending. Oral intake has increased. Encourage supplement shakes for added nutrition. Platelets are better today. He did receive a platelet pack yesterday. No bleeding noted yesterday or today. Patient continues to require 15 L per high flow nasal cannula. Solu-Medrol decreased yesterday. Regarding severe neutropenia, Continue G-CSF (initiated 12/19). Neutropenic precautions initiated 12/21. Anemia is stable Uric acid normalized-continue allopurinol. Hypernatremia is better, decrease IV fluid rate to 50. Considered DC IV fluids if blood pressure is stable Recheck renal panel later today. Continue Levaquin for prophylaxis while patient is neutropenic Nystatin suspension for management of thrush while neutropenic. Continue daily CBC and renal panel. Continue sliding scale insulin for hyperglycemia The patient is critically ill. Greater than 45 minutes of critical care time spent seeing and evaluating the patient, determining care plan Prognosis remains guarded.
[2017-12-27] MEDS ORDERED: NS FLUSH BAG 500ml IV PRN (08:29)
[2017-12-27] MEDS ORDERED: CALMOSEPTINE OINTMENT 113gm TUBE TP PRN (08:40)
[2017-12-27] MEDS ORDERED: CALCIUM GLUCONATE 1,000 MG in NS 50 ML IV ONE (08:40)
[2017-12-27] MEDS: MULTI-VITAMIN + MINERAL TABLET PO SCH (09:42)
[2017-12-27] MEDS: ALLOPURINOL 100 MG TABLET PO SCH (09:42)
[2017-12-27] MEDS: SALINE 0.65% NASAL SPRAY 44 ML BOTTLE EA NOSTRIL SCH ×4 (09:45→21:18)
[2017-12-27] MEDS: NICOTINE 7 MG PATCH TD SCH (09:45)
[2017-12-27] MEDS: POLYETHYL GLYCOL 3350 17gm PACKET PO SCH (09:45)
[2017-12-27] MEDS: NYSTATIN 500,000 units/5 ml ORAL LIQUID PO SCH ×4 (10:14→21:18)
[2017-12-27] MEDS: CALCIUM 600 + VIT D 400 TABLET PO SCH ×2 (10:15→21:18)
[2017-12-27] MEDS: CEFEPIME 1 GM in NS 50 ML IV SCH ×3 (10:30→23:52)
[2017-12-27] MEDS: METOCLOPRAMIDE 10mg/2ml INJECTION IVP SCH ×3 (10:31→21:18)
[2017-12-27] MEDS: SODIUM BICARBONATE 50 MEQ in D5W 1,000 ML IV SCH (11:05)
[2017-12-27] MEDS: CALCIUM CARBONATE Chewable 500mg TABLET PO SCH (11:05)
--- NOTE | 2017-12-27 13:02 | XRay Report ---
Indication: abd pain PROCEDURE: XR abdomen 1V: Encounter: Initial Comparison: December 23, 2017 Findings: The bowel gas pattern is nonobstructive. Gas is seen in small and large bowel to the level of the rectum. Diffusely gas-filled colon. The bony structures are grossly unremarkable. Impression: Possible ileus. There is a preliminary report by [facility]. The preliminary report suggests possible small bowel or colonic obstruction. I do not appreciate this. .
--- NOTE | 2017-12-27 13:03 | XRay Report ---
Indication: hypoxia PROCEDURE: XR chest 1V: Encounter: Initial Comparison: December 25, 2017 Findings: Slightly improved aeration of the right lower lobe. Right hilar and upper lobe mass again noted. Left PICC line remains in place. Slightly increased interstitial prominence in the left lung. Small bilateral pleural effusions are decreased. No pneumothorax. Heart size is stable. Impression: Improving aeration of the right lower lobe and decreasing effusions. .
[2017-12-27] MEDS: TBO-FILGRASTIM 480mcg/0.8ml INJECTION SQ SCH (18:04)
[2017-12-27] MEDS ORDERED: CALCIUM GLUCONATE 2,000 MG in NS 100 ML IV ONE (18:18)
[2017-12-27] MEDS: ALBUMIN HUMAN IV SCH (18:32)
[2017-12-27] MEDS: CONTAINER EMPTY IV SCH (18:32)
[2017-12-27] MEDS ORDERED: ALTEPLASE (Cathflo*) 2mg INJECTION IV ONE (23:41)
[2017-12-28] MEDS: HYDROMORPHONE 2 MG/ML INJECTION IVP PRN ×3 (00:31→15:06)
[2017-12-28] MEDS: METHYLPREDNISOLONE SOD SUCC 125mg/2ml INJECTION IVP SCH ×3 (01:38→20:26)
[2017-12-28] MEDS: CONTAINER EMPTY IV SCH ×2 (01:38→10:03)
[2017-12-28] MEDS: ALBUMIN HUMAN IV SCH ×2 (01:38→10:03)
[2017-12-28] MEDS: INSULIN ASPART 100unit/ml INJECTION SQ PRN ×3 (01:47→20:25)
[2017-12-28] MEDS: ALBUTEROL/IPRATROPIUM 2.5mg-0.5mg/3ml NEB AEROSOL SCH ×6 (03:25→23:50)
[2017-12-28] MEDS: METOCLOPRAMIDE 10mg/2ml INJECTION IVP SCH ×4 (03:53→22:08)
[2017-12-28] MEDS ORDERED: NS FLUSH BAG 500ml IV PRN (04:57)
--- NOTE | 2017-12-28 07:56 | XRay Report ---
EXAM: XR chest 1V HISTORY: infiltrates COMPARISON: Prior examination dated 12/27/2017 FINDINGS: The heart remains within normal limits size. The trachea is midline is no evidence mediastinal widening. The pulmonary vascularity is normal. There is been slight further improvement in the aeration at the right lung base but there is no significant interval change in the remaining infiltrates seen in the right mid and upper lungs are again scattered throughout the upper, mid and lower left lung zones. Small bilateral pleural effusions persist. There is a stable left-sided PICC line in place. Bony thorax is stable. There is artifact from cardiac monitoring lead wires over the chest. IMPRESSION: 1. There is been slight further improvement in the right lung base infiltrate but there is no other significant interval change. .
[2017-12-28] MEDS: CEFEPIME 1 GM in NS 50 ML IV SCH ×3 (08:51→23:30)
[2017-12-28] MEDS: CALCIUM 600 + VIT D 400 TABLET PO SCH ×2 (08:52→20:29)
[2017-12-28] MEDS: ALLOPURINOL 100 MG TABLET PO SCH (08:52)
[2017-12-28] MEDS: MULTI-VITAMIN + MINERAL TABLET PO SCH (08:52)
[2017-12-28] MEDS: NYSTATIN 500,000 units/5 ml ORAL LIQUID PO SCH ×4 (08:53→20:41)
[2017-12-28] MEDS: SALINE 0.65% NASAL SPRAY 44 ML BOTTLE EA NOSTRIL SCH ×4 (08:53→20:33)
[2017-12-28] MEDS: NICOTINE 7 MG PATCH TD SCH (08:53)
[2017-12-28] MEDS: PANTOPRAZOLE 40 MG INJECTION IVP SCH (08:53)
--- NOTE | 2017-12-28 09:35 | Pulmonology Progress Note ---
Subjective Principal diagnosis: pneumonia Interval history: Pt resting in bed this am, no distress. Per nursing, pt. is tolerating BiPAP only short periods of time. Pt. states that he is still coughing, no sputum. Currently on 13L-HFNC. Exam Vital signs: Temperature 98.1 F 12/27/17 20:00 Pulse Rate 122 H 12/28/17 08:00 Respiratory Rate 22 12/28/17 07:11 Blood Pressure 130/84 12/28/17 06:00 Pulse Oximetry 97 12/28/17 07:11 Inpatient Medications: Generic Name Dose Route Start Last Admin Trade Name Freq PRN Reason Stop Dose Admin Hydrocodone Bitart/Acetaminophen 1 tab 12/07/17 11:21 12/12/17 03:02 [place] 5/325 PO 1 tab QID PRN Administration Pain Albuterol/Ipratropium 3 ml 12/07/17 16:00 12/28/17 07:10 Duoneb AEROSOL 3 ml Q4HR RANDALL Administration Allopurinol 100 mg 12/15/17 18:30 12/28/17 08:52 Zyloprim PO 100 mg DAILY RANDALL Administration Bisacodyl 10 mg 12/07/17 12:53 Dulcolax RECTALLY DAILY PRN Constipation Bumetanide 1 mg 12/18/17 14:30 12/20/17 05:50 Bumex 1 Mg/4 Ml Inj. IVP 1 mg Q8H RANDALL Administration Calamine/Phenol 1 applic 12/27/17 08:40 12/27/17 15:44 Risamine Oint TP 1 applic PRN PRN Administration Calcium/Vitamin D 1 tab 12/26/17 09:00 12/28/17 08:52 Caltrate + D PO 1 tab BID RANDALL Administration Diphenhydramine HCl 50 mg 12/16/17 14:00 12/22/17 15:07 Benadryl IVP 50 mg PRN PRN Administration For reaction to chemo Fluticasone Propionate 1 spray 12/07/17 11:25 Flonase EA NOSTRIL DAILY PRN PRN orders Hydrocortisone Sodium Succinate 100 mg 12/16/17 14:00 Solu-Cortef IVP PRN PRN For reaction to chemo Hydromorphone HCl 0.5 mg 12/25/17 08:47 12/28/17 00:31 Dilaudid IVP 0.5 mg Q3H PRN Administration Pain Cefepime HCl 1 gm/ Sodium 50 mls @ 200 mls/hr 12/27/17 08:15 12/28/17 08:51 Chloride IV 100 mls/hr Q8H RANDALL Administration Albumin Human 12.5 g/ IV 50 mls @ 50 mls/hr 12/27/17 18:30 12/28/17 02:57 Solution IV 12/28/17 11:29 Infused Q8H RANDLAL Infusion Insulin Aspart 2 - 8 unit 12/24/17 10:27 12/28/17 06:05 Novolog SQ 2 unit SS PRN Administration Hyperglycemia Protocol Lactulose 10 gm 12/22/17 10:39 12/26/17 20:04 Lactulose PO 10 gm DAILY PRN Administration Constipation Lorazepam 0.25 mg 12/07/17 12:48 12/25/17 10:49 Ativan Inj IVP 0.25 mg Q4H PRN Administration Air hunger/Anxiety Methylprednisolone Sodium Succinate 125 mg 12/16/17 14:00 Solu-Medrol IVP PRN PRN For reaction to chemo Methylprednisolone Sodium Succinate 80 mg 12/25/17 17:00 12/28/17 08:54 Solu-Medrol IVP 80 mg Q8HR RANDALL Administration Metoclopramide HCl 10 mg 12/27/17 10:00 12/28/17 03:53 Reglan IVP 10 mg Q6H RANDALL Administration Multivitamins/Minerals 1 tab 12/25/17 09:00 12/28/17 08:52 Therapeutic - M PO 1 tab DAILY RANADLL Administration Nicotine 7 mg 12/27/17 09:00 12/28/17 08:53 Nicoderm TD 7 mg DAILY RANDALL Administration Nystatin 5 ml 12/20/17 13:00 12/28/17 08:53 Mycostatin PO 12/30/17 12:59 5 ml QID RANDALL Administration Oxymetazoline HCl 2 spray 12/20/17 11:00 12/20/17 13:25 Afrin Nasal [place] EA NOSTRIL 2 spray BID PRN Administration Bleeding Pantoprazole Sodium 40 mg 12/17/17 15:30 12/28/17 08:53 Protonix Iv IVP 40 mg DAILY RANDALL Administration Pharmacy Profile Note 5 ml 12/14/17 11:19 12/21/17 18:12 Lidocaine/Maalox/Benadryl Soln PO 5 ml Q4H PRN Administration Mouth pain Polyethylene Glycol 17 gm 12/09/17 11:00 12/27/17 09:45 Miralax PO 17 gm DAILY RANDALL Administration Sodium Chloride 2 spray 12/08/17 10:15 12/28/17 08:53 [place] Nasal Moisturizing [place] EA NOSTRIL 2 spray QID RANDALL Administration Sodium Chloride 500 ml 12/15/17 16:40 12/24/17 20:04 Normal Saline IV 500 ml PRN PRN Administration Sodium Chloride 10 - 80 ml 12/15/17 16:40 12/27/17 19:50 Iv Flush IV 30 ml PRN PRN Administration [place]ushing Sodium Chloride 500 ml 12/21/17 08:38 Normal Saline IV PRN PRN Sodium Chloride 500 ml 12/22/17 12:30 Normal Saline IV PRN PRN Sodium Chloride 500 ml 12/23/17 09:30 Normal Saline IV PRN PRN Sodium Chloride 500 ml 12/25/17 06:53 Normal Saline IV PRN PRN Sodium Chloride 500 ml 12/27/17 08:29 Normal Saline IV PRN PRN Sodium Chloride 500 ml 12/28/17 04:57 Normal Saline IV PRN PRN Tbo-Filgrastim 480 mcg 12/19/17 19:00 12/27/17 18:04 Granix SQ 480 mcg Q24H RANDALL Administration Discontinued Medications Generic Name Dose Route Start Last Admin Trade Name Freq PRN Reason Stop Dose Admin Acetaminophen 650 mg 12/11/17 10:30 12/11/17 20:30 Tylenol PO 12/11/17 10:31 325 mg O ONE Administration Albumin Human 25 g 12/17/17 15:07 12/17/17 16:01 Albumin Human IV 12/17/17 15:08 25 g Q8H ONE Administration Albumin Human 25 g 12/18/17 12:00 Albumin Human IV Q8H RANDALL Albuterol/Ipratropium 3 ml 12/07/17 11:00 12/07/17 16:44 Duoneb AEROSOL Not Given RTQID RANDALL Allopurinol 300 mg 12/12/17 13:45 12/17/17 08:56 Zyloprim PO Not Given DAILY [facility] Alteplase, Recombinant 2 mg 12/21/17 04:32 12/21/17 04:59 Cathflo Activase IV 12/21/17 04:33 2 mg O ONE Administration Alteplase, Recombinant 2 mg 12/27/17 23:41 12/27/17 23:51 Cathflo Activase IV 12/27/17 23:42 2 mg O ONE Administration Benzonatate 100 mg 12/07/17 12:48 Tessalon Perles PO TID PRN Cough Bumetanide 1 mg 12/19/17 19:00 12/19/17 19:10 Bumex 1 Mg/4 Ml Inj. IVP 12/19/17 19:01 1 mg O ONE Administration Bumetanide 1 mg 12/26/17 08:01 12/26/17 08:56 Bumex 1 Mg/4 Ml Inj. IVP 12/26/17 08:02 1 mg O ONE Administration Bumetanide 1 mg 12/26/17 15:00 12/26/17 14:28 Bumex 1 Mg/4 Ml Inj. IVP 12/26/17 15:01 1 mg O ONE Administration Bumetanide 1 mg 12/27/17 08:30 12/27/17 10:30 Bumex 1 Mg/4 Ml Inj. IVP 12/27/17 08:31 1 mg O ONE Administration Bumetanide 1 mg 12/27/17 18:17 12/27/17 19:46 Bumex 1 Mg/4 Ml Inj. IVP 12/27/17 18:18 1 mg O ONE Administration Calcium Carbonate 1,000 mg 12/23/17 12:00 12/27/17 11:05 Tums PO Not Given WM RANDALL Clotrimazole 10 mg 12/09/17 12:00 12/20/17 10:19 Mycelex Pj MM Not Given 5XD RANDALL Diphenhydramine HCl 50 mg 12/09/17 10:36 12/09/17 12:51 Benadryl PO 12/09/17 10:37 50 mg ONCE ONE Administration Diphenhydramine HCl 25 mg 12/11/17 10:29 12/11/17 20:30 Benadryl PO 12/11/17 10:30 25 mg ONCE ONE Administration Diphenhydramine HCl 50 mg 12/21/17 08:38 12/21/17 18:16 Benadryl PO 12/21/17 08:39 Not Given ONCE ONE Diphenhydramine HCl 50 mg 12/22/17 12:30 12/22/17 15:05 Benadryl PO 12/22/17 12:31 Not Given ONCE ONE Furosemide 20 mg 12/11/17 10:29 12/11/17 23:59 Lasix IVP 12/11/17 10:30 20 mg O ONE Administration Furosemide 20 mg 12/12/17 14:06 12/12/17 14:47 Lasix IVP 12/12/17 14:07 20 mg ONCE ONE Administration Furosemide 20 mg 12/13/17 09:29 12/13/17 11:51 Lasix IVP 12/13/17 09:30 20 mg ONCE ONE Administration Furosemide 40 mg 12/14/17 11:19 12/14/17 12:14 Lasix IVP 12/14/17 11:20 40 mg O ONE Administration Furosemide 40 mg 12/15/17 09:29 12/15/17 11:44 Lasix IVP 12/15/17 09:30 40 mg O ONE Administration Furosemide 40 mg 12/15/17 17:41 12/15/17 18:32 Lasix IVP 12/15/17 17:42 40 mg O ONE Administration Furosemide 40 mg 12/16/17 15:13 12/16/17 15:18 Lasix IVP 12/16/17 15:14 40 mg O ONE Administration Furosemide 20 mg 12/17/17 11:44 12/17/17 12:27 Lasix IVP 12/17/17 11:45 20 mg ONCE ONE Administration Furosemide 20 mg 12/17/17 16:00 12/17/17 15:35 Lasix IVP 12/17/17 16:01 20 mg Q8H ONE Administration Furosemide 20 mg 12/21/17 08:38 12/21/17 16:07 Lasix IVP 12/21/17 08:39 20 mg O ONE Administration Cefepime HCl 1 gm/ Sodium 100 mls @ 200 mls/hr 12/07/17 08:43 12/07/17 09:33 Chloride IV 12/07/17 09:12 Infused O ONE Infusion Sodium Chloride 1,000 mls @ 1,000 mls/hr 12/07/17 08:43 12/07/17 10:08 Normal Saline IV 12/07/17 09:42 Infused .Q1H ONE Infusion Sodium Chloride 1,000 mls @ 999.9 mls/hr 12/07/17 09:13 12/07/17 11:38 Normal Saline IV 12/07/17 10:12 Infused .Q1H ONE Infusion Cefepime HCl 1 gm/ Sodium 50 mls @ 100 mls/hr 12/07/17 16:00 12/12/17 00:59 Chloride IV Not Given Q6H RANDALL Levofloxacin/Dextrose 750 mg in 150 mls @ 100 mls/hr 12/07/17 11:21 12/17/17 13:13 Levaquin Premix IV Infused Q24H RANDALL Infusion Sodium Chloride 1,000 mls @ 125 mls/hr 12/07/17 11:21 12/08/17 10:31 Normal Saline IV Infused .Q8H RANDALL Infusion Vancomycin HCl 1,250 mg/ 250 mls @ 200 mls/hr 12/08/17 02:00 12/09/17 18:58 Sodium Chloride IV Not Given Q12H RANDALL Vancomycin HCl 1,750 mg/ 500 mls @ 250 mls/hr 12/07/17 14:00 12/07/17 15:00 Sodium Chloride IV 12/07/17 14:01 Infused O ONE Infusion Sodium Chloride 500 mls @ 500 mls/hr 12/08/17 03:40 12/08/17 03:40 Normal Saline IV 12/08/17 04:39 Not Given .Q1H ONE Sodium Chloride 500 mls @ 500 mls/hr 12/08/17 05:30 12/08/17 05:17 Normal Saline IV 12/08/17 06:30 Not Given .Q1H RANDALL Potassium Chloride 20 meq/ 1,014.5455 mls @ 75 mls/hr 12/08/17 09:45 13:00 Potassium Phosphate 20 meq/ IV 0 mls/hr Sodium Chloride .[id number] RANDALL Infusion Potassium Chloride 20 meq/ 1,014.5455 mls @ 50 mls/hr 12/09/17 11:00 12:05 Potassium Phosphate 20 meq/ IV Infused Sodium Chloride .[id number] RANDALL Infusion Vancomycin HCl 1,750 mg/ 500 mls @ 250 mls/hr 12/09/17 14:00 12/12/17 08:00 Sodium Chloride IV 12/12/17 07:30 Not Given Q12H RANDALL Sodium Chloride 1,000 mls @ 500 mls/hr 12/10/17 16:53 12/10/17 19:30 Normal Saline IV 12/10/17 18:52 Infused .Q2H ONE Infusion Sodium Chloride 1,000 mls @ 75 mls/hr 12/11/17 18:00 12/12/17 14:46 Normal Saline IV Infused .[id number] RANDALL Infusion Sodium Chloride 500 mls @ 250 mls/hr 12/11/17 15:45 12/11/17 18:20 Normal Saline IV 12/11/17 17:44 Infused .Q2H RANDALL Infusion Vancomycin HCl 1,750 mg/ 500 mls @ 250 mls/hr 12/13/17 08:00 Sodium Chloride IV 12/13/17 08:00 Q24H RANDALL Sodium Bicarbonate 100 meq/ 1,100 mls @ 75 mls/hr 12/12/17 14:00 12/13/17 12: 30 Dextrose IV Infused .[id number] RANDALL Infusion Vancomycin HCl 1,250 mg/ 250 mls @ 200 mls/hr 12/14/17 08:00 12/14/17 11:00 Sodium Chloride IV Infused Q48H RANDALL Infusion Zoledronic Acid 3 mg in 75 mls @ 150 mls/hr 12/13/17 12:00 12/13/17 14:59 Zometa IV 12/13/17 12:29 Infused O ONE Infusion Sodium Bicarbonate 100 meq/ 1,100 mls @ 100 mls/hr 12/13/17 12:30 12/16/17 12 :04 Dextrose IV Not Given .Q11H RANDALL Cefepime HCl 1 gm/ Sodium 100 mls @ 200 mls/hr 12/14/17 19:30 12/15/17 01:35 Chloride IV Infused Q6H RANDALL Infusion Cefepime HCl 1 gm/ Sodium 50 mls @ 200 mls/hr 12/15/17 09:00 12/17/17 09:25 Chloride IV Infused Q6HR RANDALL Infusion Vancomycin HCl 1,000 mg/ 250 mls @ 250 mls/hr 12/15/17 12:00 12/16/17 14:11 Sodium Chloride IV 12/17/17 11:59 Infused Q24H RANDALL Infusion Dextrose/Sodium Chloride 1,000 mls @ 75 mls/hr 12/15/17 13:30 12/19/17 14:00 D5-1/2ns IV Infused .[id number] RANDALL Infusion Dexamethasone 10 mg/ Sodium 52.5 mls @ 210 mls/hr 12/16/17 14:00 12/16/17 14: 39 Chloride IV 12/16/17 14:14 Infused O ONE Infusion Carboplatin 377 mg/ Dextrose 287.7 mls @ 250 mls/hr 12/16/17 14:30 12/16/17 16:00 IV 12/16/17 15:39 Infused O ONE Infusion Etoposide 100 mg/ Sodium 505 mls @ 125 mls/hr 12/16/17 15:30 12/16/17 20:00 Chloride IV 12/16/17 19:32 Infused O ONE Infusion Dexamethasone 10 mg/ Sodium 52.5 mls @ 150 mls/hr 12/17/17 14:00 12/17/17 14: 42 Chloride IV 12/17/17 14:20 Infused O ONE Infusion Etoposide 100 mg/ Sodium 505 mls @ 125 mls/hr 12/17/17 14:30 12/17/17 19:00 Chloride IV 12/17/17 18:32 Infused O ONE Infusion Vancomycin HCl 1,000 mg/ 250 mls @ 250 mls/hr 12/18/17 00:01 12/21/17 01:28 Sodium Chloride IV 12/21/17 11:00 Infused Q36H RANDALL Infusion Cefepime HCl 1 gm/ Sodium 50 mls @ 100 mls/hr 12/17/17 17:00 12/18/17 09:01 Chloride IV 100 mls/hr Q8HR RANDALL Administration Levofloxacin/Dextrose 750 mg in 150 mls @ 100 mls/hr 12/19/17 09:00 12/19/17 12:15 Levaquin Premix IV Infused Q48H RANDALL Infusion Dexamethasone 10 mg/ Sodium 52.5 mls @ 150 mls/hr 12/18/17 14:00 12/18/17 14: 38 Chloride IV 12/18/17 14:20 Infused O ONE Infusion Etoposide 100 mg/ Sodium 505 mls @ 125 mls/hr 12/18/17 14:30 12/18/17 14:38 Chloride IV 12/18/17 18:32 125 mls/hr O ONE Administration Albumin Human 100 mls @ 50 mls/hr 12/18/17 12:00 12/21/17 05:19 Albumin Human 25 Gm IV Infused Q8H RANDALL Infusion Cefepime HCl 1 gm/ Sodium 50 mls @ 100 mls/hr 12/18/17 21:00 12/21/17 09:18 Chloride IV 12/21/17 11:00 Infused Q12H RANDALL Infusion Potassium Chloride 40 meq/ 520 mls @ 100 mls/hr 12/19/17 13:00 12/19/17 19:00 Dextrose IV 12/19/17 18:11 100 mls/hr .[id number] RANDALL Infusion Potassium Chloride 40 meq/ 1,020 mls @ 100 mls/hr 12/21/17 10:00 12/23/17 07: 07 Dextrose IV Infused .[id number] RANDALL Infusion Albumin Human 50 mls @ 50 mls/hr 12/21/17 12:00 12/23/17 05:20 Albumin Human 12.5 Gm IV Infused Q8H RANDALL Infusion Rasburicase 3 mg/ Sodium 50 mls @ 100 mls/hr 12/21/17 14:30 12/21/17 19:51 Chloride IV 12/21/17 14:59 Infused O ONE Infusion Dextrose/Sodium Chloride 1,000 mls @ 75 mls/hr 12/22/17 18:45 12/23/17 11:56 D5-1/2ns IV Infused .[id number] RANDALL Infusion Dextrose 1,000 mls @ 75 mls/hr 12/23/17 11:15 12/24/17 16:30 Dextrose 5% In Water IV Infused .[id number] RANDALL Infusion 100 mls/hr Calcium Gluconate 1,000 mg/ 60 mls @ 200 mls/hr 12/23/17 18:32 12/23/17 19:52 Sodium Chloride IV 12/23/17 18:49 Infused O ONE Infusion Levofloxacin/Dextrose 750 mg in 150 mls @ 100 mls/hr 12/24/17 09:00 12/26/17 11:00 Levaquin Premix IV Infused Q48H RANDALL Infusion Calcium Gluconate 1,000 mg/ 60 mls @ 200 mls/hr 12/24/17 16:29 12/24/17 17:18 Sodium Chloride IV 12/24/17 16:46 Infused O ONE Infusion Sodium Bicarbonate 50 meq/ 1,050 mls @ 50 mls/hr 12/24/17 16:30 12/27/17 11: 05 Dextrose IV Not Given .Q21H RANDALL Potassium Chloride 10 meq in 100 mls @ 100 mls/hr 12/24/17 16:45 12/24/17 17: 18 Potassium Chloride Premix IV 12/24/17 18:44 Not Given Q1H RANDALL Potassium Chloride 10 meq/ 105 mls @ 100 mls/hr 12/24/17 17:30 12/24/17 20:05 Sodium Chloride IV 12/24/17 19:29 Infused Q1H RANDALL Infusion Calcium Gluconate 1,000 mg/ 60 mls @ 200 mls/hr 12/24/17 19:13 12/24/17 20:22 Sodium Chloride IV 12/24/17 19:30 Infused O ONE Infusion Calcium Gluconate 1,000 mg/ 60 mls @ 200 mls/hr 12/25/17 08:49 12/27/17 11:06 Sodium Chloride IV 12/25/17 09:06 Infused O ONE Infusion Calcium Gluconate 1,000 mg/ 60 mls @ 200 mls/hr 12/25/17 16:59 12/27/17 11:05 Sodium Chloride IV 12/25/17 17:16 Infused O ONE Infusion Calcium Gluconate 2,000 mg/ 120 mls @ 50 mls/hr 12/26/17 05:03 12/26/17 08:05 Sodium Chloride IV 12/26/17 07:26 Infused O ONE Infusion Albumin Human 12.5 g/ IV 50 mls @ 50 mls/hr 12/26/17 16:10 12/26/17 20:45 Solution IV 12/26/17 17:09 Infused O ONE Infusion Calcium Gluconate 1,000 mg/ 60 mls @ 200 mls/hr 12/26/17 16:58 12/26/17 20:00 Sodium Chloride IV 12/26/17 17:15 Infused O ONE Infusion Cefepime HCl 1 gm/ Sodium 100 mls @ 200 mls/hr 12/27/17 08:15 Chloride IV Q8H RANDALL Calcium Gluconate 1,000 mg/ 60 mls @ 200 mls/hr 12/27/17 08:40 12/27/17 10:00 Sodium Chloride IV 12/27/17 08:57 Infused O ONE Infusion Calcium Gluconate 2,000 mg/ 120 mls @ 50 mls/hr 12/27/17 18:18 12/27/17 22:00 Sodium Chloride IV 12/27/17 20:41 Infused O ONE Infusion Insulin Aspart 1 - 5 unit 12/21/17 09:19 12/23/17 23:28 Novolog SQ 2 unit SS PRN Administration Hyperglycemia Protocol Magnesium Hydroxide 30 ml 12/07/17 12:53 Mom PO DAILY PRN Constipation Methylprednisolone Sodium Succinate 125 mg 12/15/17 15:30 12/21/17 08:50 Solu-Medrol IVP 125 mg Q6HR RANDALL Administration Methylprednisolone Sodium Succinate 80 mg 12/21/17 10:24 12/25/17 08:30 Solu-Medrol IVP 80 mg Q6HR RANDALL Administration Metoclopramide HCl 5 mg 12/17/17 14:30 12/19/17 10:58 Reglan Not Given Q6H RANDALL Metoclopramide HCl 10 mg 12/23/17 17:32 12/26/17 15:57 Reglan IVP 10 mg Q6H PRN Administration Miscellaneous Medication 1 each 12/27/17 08:05 12/27/17 11:05 Pharmacy Consult - Renal Dosing MC 12/27/17 08:06 Not Given O ONE Morphine Sulfate 2 mg 12/07/17 12:47 12/14/17 10:38 Morphine Sulfate Inj IVP 2 mg Q2HR PRN Administration Pain Morphine Sulfate 4 mg 12/14/17 11:20 12/19/17 09:54 Morphine Sulfate Inj IVP 4 mg Q2HR PRN Administration Pain Morphine Sulfate 2 - 4 mg 12/19/17 10:49 12/25/17 03:44 Morphine Sulfate Inj IVP 2 mg Q2HR PRN Administration Pain Nicotine 21 mg 12/07/17 10:45 12/26/17 09:06 Nicoderm TD 21 mg DAILY RANDALL Administration Nicotine 1 removal 12/08/17 09:00 12/26/17 09:05 Nicotine Patch Removal TD 1 removal DAILY RANDALL Administration Ondansetron HCl 4 mg 12/07/17 11:21 12/23/17 16:20 Zofran IVP 4 mg Q6H PRN Administration Nausea Palonosetron 0.25 mg 12/16/17 14:00 12/16/17 14:04 Aloxi IV 12/16/17 14:01 0.25 mg O ONE Administration Pharmacy Consult 1 each 12/11/17 11:34 Pharmacy Consult - Fall Risk XX 12/11/17 11:35 ONE TIME ONE Pharmacy Consult 1 each 12/19/17 17:12 Pharmacy Consult - Fall Risk XX 12/19/17 17:13 ONE TIME ONE Potassium Chloride 20 meq 12/12/17 13:58 12/12/17 14:14 K-Dur 20 Meq Tablet PO 12/12/17 13:59 20 meq O ONE Administration Potassium Chloride 20 meq 12/13/17 12:30 12/19/17 10:58 K-Dur 20 Meq Tablet PO Not Given BIDWM RANDALL Potassium Chloride 40 meq 12/26/17 16:09 12/26/17 16:37 K-Dur 20 Meq Tablet PO 12/26/17 16:10 40 meq O ONE Administration Potassium Chloride 20 meq 12/27/17 08:13 12/27/17 10:31 K-Dur 20 Meq Tablet PO 12/27/17 08:14 20 meq O ONE Administration Potassium Chloride 20 meq 12/27/17 12:00 12/27/17 11:53 K-Dur 20 Meq Tablet PO 12/27/17 12:01 20 meq O ONE Administration Promethazine HCl/Codeine 5 ml 12/07/17 12:49 Phenergan + Codeine PO Q6HR PRN Cough Rasburicase 3 mg 12/21/17 13:35 12/21/17 18:17 Elitek IV 12/21/17 13:36 Not Given O ONE Sodium Chloride 10 - 80 ml 12/07/17 08:43 12/20/17 15:18 Iv Flush IVF 40 ml PRN PRN Administration [place] Sodium Chloride 500 ml 12/07/17 11:24 12/10/17 16:47 Normal Saline IV 500 ml PRN PRN Administration Sodium Chloride 500 ml 12/09/17 10:36 12/11/17 08:14 Normal Saline IV 500 ml PRN PRN Administration Sodium Chloride 500 ml 12/10/17 16:57 Normal Saline IV PRN PRN Sodium Chloride 500 ml 12/11/17 10:29 Normal Saline IV PRN PRN Sodium Chloride 500 ml 12/13/17 09:27 Normal Saline IV PRN PRN Sodium Chloride 500 ml 12/13/17 10:04 Normal Saline IV PRN PRN Sodium Chloride 500 ml 12/15/17 09:29 Normal Saline IV PRN PRN Spironolactone 12.5 mg 12/13/17 09:30 12/13/17 11:51 Aldactone PO 12/13/17 09:31 12.5 mg ONE TIME ONE Administration Vancomycin HCl 1 each 12/07/17 11:09 Pharmacy Consult - Vancomycin 12/07/17 11:10 O ONE Vancomycin HCl 1 each 12/07/17 11:21 Pharmacy Consult - Vancomycin 12/07/17 11:22 O ONE - Constitutional no acute distress, cooperative - Routine HEENT Exam Head: Present: normocephalic, atraumatic Eye: Present: PERRL ENT: Present: mucous membranes moist, nares patent - Routine Neck Exam Present: supple. Absent: JVD, carotid bruit - Routine Respiratory Exam Present: rhonchi, crackles, diminished air movement - Routine Cardiovascular Exam Present: S1, S2, no murmur, tachycardia - Routine Abdominal Exam Present: soft, tenderness, distended Comments: Hypoactive bowel sounds - Routine Extremities Exam Present: edema, pulses intact, normal capillary refill. Absent: cyanosis Comments: +4 BLE/weeping, +3 BUE/weeping - Routine Skin Exam Present: intact, warm, ecchymosis - Routine Neurological Exam Present: alert, oriented X3, moving all extremities Pt. difficult to understand at times/mumbles - Routine Psychiatric Exam Present: normal affect, normal thought process, good insight, good judgment - Urinary Catheter Management Urethral Cath placed during this visit: yes Urethral indwelling: Yes Reason for continuing: Prolonged Immobilization Insertion date: 12/07/17 Insertion time: 19:45 Results - Laboratory Findings Laboratory: Laboratory Results - last 48 hr 12/26/17 12/26/17 12/26/17 13:34 14:53 18:34 WBC RBC Hgb Hct MCV MCH MCHC RDW Std Deviation Plt Count MPV Neutrophils % (Manual) Lymphocytes % (Manual) Monocytes % (Manual) Lymphocytes # (Manual) Monocytes # (Manual) Poikilocytosis Anisocytosis Tear Drop Cells Ovalocytes Helmet Cells [place] Cells Schistocytes RBC Morph Comment Turbidity < 20 Sodium 147 H Potassium 3.2 L Chloride 107 Carbon Dioxide 23 Anion Gap 17 H BUN 103.0 H* Creatinine 2.3 H GFR Calculation 30 BUN/Creatinine Ratio 45 H Glucose 169 H Glucometer 205 134 Calculated Osmolality 318 H Calcium 6.1 L Phosphorus 4.8 H Magnesium Total Bilirubin Icterus Index < 2 AST ALT Alkaline Phosphatase Total Protein Albumin 2.9 L Globulin Albumin/Globulin Ratio Specimen Hemolysis < 15 Ur Collection Type Urine Color Urine Clarity Urine pH Ur Specific [place] Urine Protein Urine Glucose (UA) Urine Ketones Urine Occult Blood Urine Nitrate Urine Bilirubin Urine Urobilinogen Ur Leukocyte Esterase Urine RBC Urine WBC Ur Squamous Epith Cells Ur Transition Epith Cell Ur Renal Epithelial Cell Urine Bacteria Hyaline Casts Granular Casts Ur Culture Indicated? Blood Type Antibody Screen Crossmatch ([facility]) Blood Product Request 12/27/17 12/27/17 12/27/17 00:13 04:04 04:04 WBC 0.0 L* RBC 2.12 L Hgb 6.5 L Hct 19.2 L D MCV 90.6 MCH 30.7 MCHC 33.9 RDW Std Deviation 61.5 H Plt Count 7 L* D MPV Not performed Neutrophils % (Manual) Not performed Lymphocytes % (Manual) 100.0 H Monocytes % (Manual) Lymphocytes # (Manual) 0.0 L Monocytes # (Manual) Poikilocytosis 2+ Anisocytosis 2+ Tear Drop Cells 1+ Ovalocytes 1+ Helmet Cells 1+ [place] Cells 1+ Schistocytes 1+ RBC Morph Comment Abnormal Turbidity < 20 Sodium 147 H Potassium 3.3 L Chloride 108 H Carbon Dioxide 24 Anion Gap 15 BUN 108.0 H* Creatinine 2.3 H GFR Calculation 30 BUN/Creatinine Ratio 47 H Glucose 167 H Glucometer 234 Calculated Osmolality 320 H Calcium 6.2 L Phosphorus 4.6 H Magnesium 1.9 Total Bilirubin 2.30 H Icterus Index < 2 AST 50 ALT 27 Alkaline Phosphatase 188 H Total Protein 5.2 L Albumin 2.7 L Globulin 2.5 Albumin/Globulin Ratio 1.1 Specimen Hemolysis < 15 Ur Collection Type Urine Color Urine Clarity Urine pH Ur Specific [place] Urine Protein Urine Glucose (UA) Urine Ketones Urine Occult Blood Urine Nitrate Urine Bilirubin Urine Urobilinogen Ur Leukocyte Esterase Urine RBC Urine WBC Ur Squamous Epith Cells Ur Transition Epith Cell Ur Renal Epithelial Cell Urine Bacteria Hyaline Casts Granular Casts Ur Culture Indicated? Blood Type Antibody Screen Crossmatch ([facility]) Blood Product Request 12/27/17 12/27/17 12/27/17 06:19 08:30 08:49 WBC RBC Hgb Hct MCV MCH MCHC RDW Std Deviation Plt Count MPV Neutrophils % (Manual) Lymphocytes % (Manual) Monocytes % (Manual) Lymphocytes # (Manual) Monocytes # (Manual) Poikilocytosis Anisocytosis Tear Drop Cells Ovalocytes Helmet Cells Timothy Cells Schistocytes RBC Morph Comment Turbidity Sodium Potassium Chloride Carbon Dioxide Anion Gap BUN Creatinine GFR Calculation BUN/Creatinine Ratio Glucose Glucometer 174 Calculated Osmolality Calcium Phosphorus Magnesium Total Bilirubin Icterus Index AST ALT Alkaline Phosphatase Total Protein Albumin Globulin Albumin/Globulin Ratio Specimen Hemolysis Ur Collection Type Urine Color Urine Clarity Urine pH Ur Specific [place] Urine Protein Urine Glucose (UA) Urine Ketones Urine Occult Blood Urine Nitrate Urine Bilirubin Urine Urobilinogen Ur Leukocyte Esterase Urine RBC Urine WBC Ur Squamous Epith Cells Ur Transition Epith Cell Ur Renal Epithelial Cell Urine Bacteria Hyaline Casts Granular Casts Ur Culture Indicated? Blood Type O Positive Antibody Screen Negative Crossmatch ([facility]) See Detail Blood Product Request 1 unit pc issued 12/27/17 12/27/17 12/27/17 11:34 12:59 15:17 WBC RBC Hgb Hct MCV MCH MCHC RDW Std Deviation Plt Count MPV Neutrophils % (Manual) Lymphocytes % (Manual) Monocytes % (Manual) Lymphocytes # (Manual) Monocytes # (Manual) Poikilocytosis Anisocytosis Tear Drop Cells Ovalocytes Helmet Cells Timothy Cells Schistocytes RBC Morph Comment Turbidity Sodium Potassium Chloride Carbon Dioxide Anion Gap BUN Creatinine GFR Calculation BUN/Creatinine Ratio Glucose Glucometer 205 Calculated Osmolality Calcium Phosphorus Magnesium Total Bilirubin [place] Index AST ALT Alkaline Phosphatase Total Protein Albumin Globulin Albumin/Globulin Ratio Specimen Hemolysis Ur Collection Type Urine, cath crews Urine Color Yellow Urine Clarity Sl cloudy Urine pH 5.0 Ur Specific [place] 1.010 L Urine Protein Trace A Urine Glucose (UA) Negative Urine Ketones Negative Urine Occult Blood 3+ A Urine Nitrate Negative Urine Bilirubin Negative Urine Urobilinogen 0.2 Ur Leukocyte Esterase Negative Urine RBC 50-200 H Urine WBC 0-1 Ur Squamous Epith Cells None seen Ur Transition Epith Cell 0-1 Ur Renal Epithelial Cell 0-1 Urine Bacteria 1+ H Hyaline Casts 1-3 Granular Casts 5-10 Ur Culture Indicated? Cult not indicated Blood Type Antibody Screen Crossmatch ([facility]) Blood Product Request 1 unit ppp issued 12/27/17 12/27/17 12/27/17 17:15 17:15 17:15 WBC RBC Hgb 7.4 L D Hct MCV MCH MCHC RDW Std Deviation Plt Count 27 L* D MPV Neutrophils % (Manual) Lymphocytes % (Manual) Monocytes % (Manual) Lymphocytes # (Manual) Monocytes # (Manual) Poikilocytosis Anisocytosis Tear Drop Cells Ovalocytes Helmet Cells [place] Cells Schistocytes RBC Morph Comment Turbidity < 20 Sodium 148 H Potassium 3.4 L Chloride 110 H Carbon Dioxide 24 Anion Gap 14 BUN 112.0 H* Creatinine 2.3 H GFR Calculation 30 BUN/Creatinine Ratio 49 H Glucose 162 H Glucometer Calculated Osmolality 324 H Calcium 6.0 L Phosphorus 4.7 H Magnesium Total Bilirubin Icterus Index < 2 AST ALT Alkaline Phosphatase Total Protein Albumin 2.7 L Globulin Albumin/Globulin Ratio Specimen Hemolysis < 15 Ur Collection Type Urine Color Urine Clarity Urine pH Ur Specific [place] Urine Protein Urine Glucose (UA) Urine Ketones Urine Occult Blood Urine Nitrate Urine Bilirubin Urine Urobilinogen Ur Leukocyte Esterase Urine RBC Urine WBC Ur Squamous Epith Cells Ur Transition Epith Cell Ur Renal Epithelial Cell Urine Bacteria Hyaline Casts Granular Casts Ur Culture Indicated? Blood Type Antibody Screen Crossmatch ([facility]) Blood Product Request 12/27/17 12/28/17 12/28/17 18:14 01:45 03:46 WBC 0.0 L* RBC 2.28 L Hgb 6.8 L Hct 20.1 L MCV 88.2 MCH 29.8 MCHC 33.8 RDW Std Deviation 56.7 H Plt Count 11 L* D MPV 9.2 L Neutrophils % (Manual) Not performed Lymphocytes % (Manual) 90.0 H Monocytes % (Manual) 10.0 H Lymphocytes # (Manual) 0.0 L Monocytes # (Manual) 0.0 Poikilocytosis 2+ Anisocytosis 2+ Tear Drop Cells 1+ Ovalocytes 1+ Helmet Cells 1+ [place] Cells 1+ Schistocytes 1+ RBC Morph Comment Abnormal Turbidity Sodium Potassium Chloride Carbon Dioxide Anion Gap BUN Creatinine GFR Calculation BUN/Creatinine Ratio Glucose Glucometer 180 222 Calculated Osmolality Calcium Phosphorus Magnesium Total Bilirubin Icterus Index AST ALT Alkaline Phosphatase Total Protein Albumin Globulin Albumin/Globulin Ratio Specimen Hemolysis Ur Collection Type Urine Color Urine Clarity Urine pH Ur Specific [place] Urine Protein Urine Glucose (UA) Urine Ketones Urine Occult Blood Urine Nitrate Urine Bilirubin Urine Urobilinogen Ur Leukocyte Esterase Urine RBC Urine WBC Ur Squamous Epith Cells Ur Transition Epith Cell Ur Renal Epithelial Cell Urine Bacteria Hyaline Casts Granular Casts Ur Culture Indicated? Blood Type Antibody Screen Crossmatch ([facility]) Blood Product Request 12/28/17 12/28/17 03:46 06:02 WBC RBC Hgb Hct MCV MCH MCHC RDW Std Deviation Plt Count MPV Neutrophils % (Manual) Lymphocytes % (Manual) Monocytes % (Manual) Lymphocytes # (Manual) Monocytes # (Manual) Poikilocytosis Anisocytosis Tear Drop Cells Ovalocytes Helmet Cells [place] Cells Schistocytes RBC Morph Comment Turbidity < 20 Sodium 152 H Potassium 3.3 L Chloride 111 H Carbon Dioxide 24 Anion Gap 17 H BUN 114.0 H* Creatinine 2.4 H GFR Calculation 28 BUN/Creatinine Ratio 48 H Glucose 163 H Glucometer 179 Calculated Osmolality 332 H Calcium 6.3 L Phosphorus 4.7 H Magnesium Total Bilirubin Icterus Index < 2 AST ALT Alkaline Phosphatase Total Protein Albumin 2.8 L Globulin Albumin/Globulin Ratio Specimen Hemolysis < 15 Ur Collection Type Urine Color Urine Clarity Urine pH Ur Specific [place] Urine Protein Urine Glucose (UA) Urine Ketones Urine Occult Blood Urine Nitrate Urine Bilirubin Urine Urobilinogen Ur Leukocyte Esterase Urine RBC Urine WBC Ur Squamous Epith Cells Ur Transition Epith Cell Ur Renal Epithelial Cell Urine Bacteria Hyaline Casts Granular Casts Ur Culture Indicated? Blood Type Antibody Screen Crossmatch (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 Cont on Bt's with A/A q4hr and acapella, solum 80mg q8hr, wean to q12. Abx with Cefepime, s/ p vanco and levaquin for pna. s/p chemo, follow. Diuresis on hold, IVF decreased to 50mL/hr./Na slightly increased to 152, manage per primary. Will continue to follow. - Time Spent With Patient Total time spent is greater than 50% in coordination of care (as documented) at patient's floor/unit and/or counseling patient: less than 15 minutes
--- NOTE | 2017-12-28 12:02 | Progress Note ---
<Sharifa Duarte - Last Filed: 12/28/17 13:40> Oncology Subjective Alone in room at time of intake. Opens eyes; minimal verbal response and unable to understand what he tries to say. Unable to obtain ROS. He nods head yes when I am examining abdomen/groin and ask if this hurts. Exam Vital signs: Temperature 97.8 F 12/28/17 09:20 Pulse Rate 129 H 12/28/17 09:00 Respiratory Rate 20 12/28/17 11:56 Blood Pressure 117/79 12/28/17 09:00 Pulse Oximetry 94 12/28/17 11:56 - Constitutional mild distress, obtunded - Routine HEENT Exam Head: Present: normocephalic Eye: Present: EOMI ENT: Present: mucous membranes dry - Routine Neck Exam Present: supple. Absent: lymphadenopathy - Routine Respiratory Exam Present: CTA bilaterally (anteriorally) - Routine Cardiovascular Exam Present: tachycardia. Absent: no murmur - Routine Abdominal Exam Present: tenderness (absent bowel sounds-reported mod amount BM today in chart documentation), distended - Routine Exam Penile: Present: swelling Scrotal: Present: swelling - Routine Extremities Exam Present: edema (3+ edema entire lower extremities. ) - Routine Skin Exam Present: pallor, petechiae, ecchymosis - Routine Neurological Exam Present: altered mental status, hearing grossly intact - Routine Psychiatric Exam Present: unable to assess Oncology Results - Labs CBC & Chem 7: 12/28/17 03:46 12/28/17 03:46 Labs: Short CBC 12/27/17 12/27/17 12/28/17 Range/Units 17:15 17:15 03:46 WBC 0.0 L* (4.5-11.0) T/MM3 Hgb 7.4 L D 6.8 L (13.5-17.5) GM/DL Hct 20.1 L (41-53) % Plt Count 27 L* D 11 L* D (130-400) T/MM3 BMP 12/27/17 12/28/17 17:15 03:46 Sodium 148 H 152 H Potassium 3.4 L 3.3 L Chloride 110 H 111 H Carbon Dioxide 24 24 BUN 112.0 H* 114.0 H* Creatinine 2.3 H 2.4 H Glucose 162 H 163 H Calcium 6.0 L 6.3 L Liver Function 12/27/17 12/28/17 Range/Units 17:15 03:46 Albumin 2.7 L 2.8 L (3.5-5.0) g/dL - Impressions Date of Exam: 12/28/17 Ordering Provider: Sara Espinosa APRN Type of Exam(s): XR chest 1V Reason for Exam(s): infiltrates EXAM: XR chest 1V HISTORY: infiltrates COMPARISON: Prior examination dated 12/27/2017 FINDINGS: The heart remains within normal limits size. The trachea is midline is no evidence mediastinal widening. The pulmonary vascularity is normal. There is been slight further improvement in the aeration at the right lung base but there is no significant interval change in the remaining infiltrates seen in the right mid and upper lungs are again scattered throughout the upper, mid and lower left lung zones. Small bilateral pleural effusions persist. There is a stable left-sided PICC line in place. Bony thorax is stable. There is artifact from cardiac monitoring lead wires over the chest. IMPRESSION: 1. There is been slight further improvement in the right lung base infiltrate but there is no other significant interval change. . Assessment and Plan Assessment and Plan: Assessment 1. 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 Began chemotherapy with carboplatin and etoposide on 12/16/17. Completed on 12/18/17. Started G-CSF 12/19/17 and continues daily. Severe pancytopenia even prior to chemotherapy secondary to bone marrow involvement; severe pancytopenia persists. 2. Moderate respiratory distress/respiratory failure due to advanced disease and obstructive pneumonia. Pulmonology following. Today, 12/28/17 on high flow O2 via nasal cannula. 3. Hypercalcemia due to malignancy. Improving, calcium level 10.0 on 12/17/17, 8.6 on 12/18/17, 7.9 on 12/19/17. 6.8 with albumin of 2.7 on 12/20/17. On 12/23/17 calcium is 5.0 with Albumin of 2.9. May benefit from calcium replacement. Discussed with hospitalist. Calcium 12/24/17 is 5.1. Calcium 12/25/17 is 5.6. Calcium 12/28/17 is 6.3. 4. Pancytopenia; neutropenia and thrombocytopenia due to bone metastasis and most likely bone marrow metastases. Platelets on 12/17/17 are 20 K, platelets 23K on 12/18/17. HGB on 12/18/17 is 7.3, WBC 1.9/ANC 1.7, 12/19/17: WBC 2.0, ANC 1.9, PLT 16. /08/29 WBC 1.3, ANC-1.1, PLT-9 Platelets given. 12/21/17 -WBC 0.5/ANC is 0.4, HGB 6.5, PLT 7. One unit PRBC's given 12/23/17: WBC-0.1 24% neutrophils. Hgb 7.1 and PLT 9. Will give platelets. 12/24/17: WBC 0.1, 10%neutrophils. Hgb 7.5, and PLT14. 12/25/17 WBC 0.0, Hgb 7.2, and PLT 5. Given 1 Unit platelets today 12/25/16. Repeat platelets 12/25/17 are 33 12/28/17: WBC 0.0, Hgb 6.8, and PLT 11. Received 1 unit PRBC's 12/27/17 and again today, 12/28/17. 1 unit PLT given 12/27/17. 5. LDH continues to decrease 12/18/17: LDH 5077 12/19/17: LDH 4612 12/20/17: LDH 4661 12/21/17: LDH 4217 12/22/17: LDH 3720 12/23/17: LDH 3493 12/24/17: LDH 3334 12/25/17: LDH 2929 12/26/17: LDH 2517 6. Renal insufficiency Creatinine stable at 2.0 on 12/20/17, increased at 2.3 on 12/21/17. Creat 2.5 on 12/23/17. Creat 2.4 on 12/24/17. Creat 2.1 on @1307. Creatinine 12/27/17 is 2.3 and 12/28/17 is 2.4. 7. Unequal pupils with negative CT. Will follow. Improved. 8. Hyperuricemia, uric acid 8.6 on12/21/17, 7.1 on 12/23/17, 6.6 on 12/24/17, and 6.2 on 12/25/17. Improved; today 12/28/17 is 5.8. Plan Continue aggressive supportive care. Condition poor; outlook remains guarded. Dr. Galarza to discuss patient w/ Dr. Cortés today. - Time Spent With Patient Total time spent is greater than 50% in coordination of care (as documented) at patient's floor/unit and/or counseling patient: less than 15 minutes <Davy Galarza - Last Filed: 12/28/17 18:15> Exam Vital signs: Temperature 97.4 F 12/28/17 16:00 Pulse Rate 126 H 12/28/17 16:00 Respiratory Rate 16 12/28/17 16:00 Blood Pressure 121/80 12/28/17 16:00 Pulse Oximetry 94 12/28/17 16:00 Oncology Results - Labs CBC & Chem 7: 12/28/17 14:21 12/28/17 03:46 Labs: Short CBC 12/27/17 12/28/17 12/28/17 Range/Units 17:15 03:46 14:21 WBC 0.0 L* (4.5-11.0) T/MM3 Hgb 6.8 L 8.4 L D (13.5-17.5) GM/DL Hct 20.1 L (41-53) % Plt Count 27 L* D 11 L* D (130-400) T/MM3 BMP 12/28/17 03:46 Sodium 152 H Potassium 3.3 L Chloride 111 H Carbon Dioxide 24 BUN 114.0 H* Creatinine 2.4 H Glucose 163 H Calcium 6.3 L Liver Function 12/28/17 Range/Units 03:46 Albumin 2.8 L (3.5-5.0) g/dL Assessment and Plan Assessment and Plan: Patient examined Chart reviewed. I participated in the development of the plan of care of this patient . Platelets 11K but not active bleeding . Will hold off on transfusion. Continue supportive care. Currently day 12 of chemotherapy. Counts should start improving in next week if we are to see improvement. If not better by 01/05/18, consider transition to hospice care. - Time Spent With Patient Total time spent is greater than 50% in coordination of care (as documented) at patient's floor/unit and/or counseling patient:
--- NOTE | 2017-12-28 14:31 | Pharmacy Consult- Renal Dosing ---
[facility] Consul-Renal Dosing - Laboratory Information 12/08/17 12/09/17 12/10/17 04:28 04:50 04:00 BUN 17.0 15.0 11.0 Creatinine 0.6 L D 0.6 L 0.5 L 12/10/17 12/11/17 12/11/17 20:09 03:48 12:39 BUN 11.0 12.0 Creatinine 0.6 L 0.6 L 0.6 L 12/12/17 12/13/17 12/14/17 06:48 04:04 03:52 BUN 19.0 D 25.0 H 28.0 H Creatinine 1.0 D 1.3 D 1.3 12/15/17 12/15/17 12/16/17 04:12 07:53 02:12 BUN 36.0 H 40.0 H Creatinine 1.4 1.3 1.5 D 12/17/17 12/18/17 12/19/17 04:01 05:24 04:40 BUN 51.0 H* 63.0 H* 74.0 H* Creatinine 1.6 H D 1.9 H D 1.9 H 12/20/17 12/21/17 12/21/17 04:02 04:00 19:16 BUN 88.0 H* 95.0 H* 100.0 H* Creatinine 2.0 H 2.3 H D 2.4 H 12/22/17 12/22/17 12/23/17 03:53 17:30 04:12 BUN 102.0 H* 105.0 H* 103.0 H* Creatinine 2.4 H 2.5 H 2.5 H 12/23/17 12/24/17 12/24/17 17:56 04:01 14:32 BUN 97.0 H* 103.0 H* 100.0 H* Creatinine 2.3 H D 2.4 H 2.3 H 12/25/17 12/25/17 12/25/17 04:03 13:07 16:24 BUN 103.0 H* 96.0 H* 102.0 H* Creatinine 2.4 H 2.1 H D 2.3 H D 12/26/17 12/26/17 12/27/17 04:02 14:53 04:04 BUN 103.0 H* 103.0 H* 108.0 H* Creatinine 2.3 H 2.3 H 2.3 H 12/27/17 12/28/17 17:15 03:46 BUN 112.0 H* 114.0 H* Creatinine 2.3 H 2.4 H - Consult Information RENAL DOSING: METOCLOPRAMIDE (Reglan) Today's SCr = 2.4 mg/dl. Calculated CrCl = 35 ml/min. Metoclopramide dose was 10 mg IV q6h scheduled. When the CrCl drops below 40 ml/ min, Metoclopramide dose is to be adjusted by 50%. The adjusted dose is now 5 mg IV q6hrs. Elenita Hernandez, PharmD
--- NOTE | 2017-12-28 17:12 | Wound Care Progress Note ---
Wound Center Progress Note: Wound care in to see pt who at this time is cooperative. Assessed pt's scrotum that is very edematous with areas that appear to be previous blisters, Calmoseptine applied at this time. On coccyx area pt has an open area of 2 x 2 x 01 Stage III , pt's nutritional needs are great, pt is gravely ill and is now having stools. This area is covered with 3 M Advanced skin protectant and a mepilex applied for coverage. Will assist if needed.
--- NOTE | 2017-12-28 17:17 | Progress Note ---
- Date 12/28/17 Subjective: Mr. Baker was seen late this morning, family was not present. The patient nodded occasionally indicating he's having generalized pain and that he short of breath. Nursing reports he is tolerating BiPAP for only short intervals is typically using high flow nasal cannula. He had several bowel movements over the past 24 hours. Nursing additionally reports increasing edema and scrotum and some serous drainage from the extremities. He is taking small amounts of food orally but generally only with medications. No fevers. Objective Vital signs: Temperature 97.9 F 12/28/17 12:00 Pulse Rate 119 H 12/28/17 12:00 Respiratory Rate 20 12/28/17 15:32 Blood Pressure 125/74 12/28/17 12:00 Pulse Oximetry 95 - 13 L 12/28/17 15:32 Appears uncomfortable, respirations moderately labored, speech mumbled/soft EOMI, pupils equal-3 mm, conjunctiva clear, sclera anicteric, oropharynx clear- no indication of thrush Diminished airflow throughout, anterior breath sounds clear Regular rhythm, S1-S2, low-grade tachycardia Abdomen is distended but soft, no bowel sounds appreciated +3-4 edema bilateral lower extremities with serous drainage present on the left , +2-3 edema independent aspects of the arms at the elbows/upper arms Moving upper extremities spontaneously, external rotation lower extremities Rhythm: Sinus Tachycardia Height/Weight/BMI: Height 1.7 m Weight 81.7 kg Body Mass Index 28.2 Results - Labs CBC & Chem 7: 12/28/17 14:21 12/28/17 03:46 Labs: White count 0 this morning with hemoglobin 6.8 prior to transfusion, platelet count 11 Calcium 6.3, albumin 2.8 Microbiology Results: Microbiology 12/10/17 15:57 Peripheral/Iv Start Blood Culture - Final No Growth After 5 Days 12/10/17 16:00 Peripheral/Iv Start Blood Culture - Final No Growth After 5 Days 12/07/17 12:45 Sputum, Expectorated Gram Stain - Final 12/07/17 12:45 Sputum, Expectorated Sputum Culture - Final Pseudomonas aeruginosa Haemophilus influenzae Staphylococcus aureus Normal Resp Pallavi incl. Yeast 12/07/17 18:13 Urine Legionella Urinary Antigen - Final 12/07/17 18:13 Urine Streptococcus pneumoniae Antigen (M - Final - Imaging and Cardiology Chest x-ray Status: image reviewed by me (decreased infiltrate on the right compared to a week ago although there is residual right mid/upper lung infiltrate present) Assessment and Plan (1) Septic shock Current visit: Yes Status: Acute (2) Pneumonia Current visit: Yes Status: Acute (3) Neuroendocrine carcinoma metastatic to liver Problem details: Lung/liver/bone involvement Current visit: Yes Status: Acute Assessment and Plan: IMPRESSION Sepsis secondary to Right sided pneumonia Septic shock based on lactate of 4.5 (per CMS) Severe sepsis based on 2016 Surviving Sepsis Guidelines Organ dysfunction = MAP <70, hyperbilirubinemia (2.4), thrombocytopenia ( 16) SOFA on admission = 7, presumed baseline of 0 Pneumonia -right upper lobe and right lower lobe-sputum positive for Pseudomonas , Haemophilus, and MSSA; Completed 14 days of cefepime, Levaquin, and vancomycin on 12/20. 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 Chemotherapy 12/16- for neuroendocrine malignancy. Pancytopenia (POA) including platelet count of 16, WBC 3.7, and hgb of 8.9 on admission Hyperbilirubinemia, elevated AST and Alk phos, POA Hypercalcemia-Zometa given 12/13--> hypocalcemia Hypoalbuminemia-improved with albumin IV Elevated LDH Elevated CRP and procalcitonin, secondary to acute infection Severe PCM - prealbumin undetectable Thrush Macrocytic anemia Rheumatoid arthritis-Imuran/Enbrel Acute on chronic Hyponatremia (POA) (baseline 131-134)-resolved Hypokalemia-12/19/17 Epistaxis, minor-12/20/17, resolved Pupil asymmetry noted 12/20, CT head without acute pathology. Immunocompromised pt-neutropenic, recent chemotherapy-start Levaquin prophylactically on 12/24/2017, will switch to cefepime 12/27/2017 for better Pseudomonas coverage with history of Pseudomonas. Encephalopathy-improving Sinus tachycardia Dysphagia-speech therapy consulted Volume overload/anasarca-worsening today Hypernatremia-12/21/17-slowly improving Metabolic acidosis-12/21/17-mild improvement with IV fluids with bicarbonate- currently resolved Acute Hypoxia respiratory failure-currently on 11 L; BiPAP when necessary initiated 12/18 LIEN-stable. With good urine output with when necessary Bumex. Hypocalcemia without symptoms-given IV calcium gluconate with slow improvement. Still on oral calcium Hyperuricemia -received rasburicase IV and uric acid level now normal Hyperglycemia secondary to steroids PLAN Patient continues to have significant edema-increased from when I last saw him. Weight relatively stable over the past week. Sodium up slightly after attempt to diurese over the weekend, monitor for now but may require resumption of low volume fluids. Platelets and red cells being transfused again today, received packed red cells today-anticipate platelets tomorrow. X-rays yesterday for consistent with ileus, subsequently had several bowel movements. Renal function is essentially stable with discontinuation of IV fluids and addition of Bumex yesterday. Replace potassium IV today. Encourage by mouth intake with nutrition Albumin is down to 2.7 today. Received 3 doses of albumin over the past 24 hours -completed this morning, recheck level in a.m.-redosed if less than 3. Calcium gluconate IV 1 yesterday-slightly improved level, re-dose tomorrow if ionized calcium significantly depressed. Prognosis discussed with Dr. Galarza and Dr. Mckinney - multiple challenges present, prognosis poor. Continue neutropenic cautions and Granix for severe neutropenia with white count of 0 again today. Prognosis remains guarded. The patient is critically ill. DVT Prophylaxis: SCD's Resuscitation Status: Do Not Resuscitate - Physician Narrative Narrative: Date: 12/28/17 Time: 1705 Hospital Course Summary Disclaimer: The visit summary below is not to be considered part of the above Progress Note. Hospital Course: 12/07/17 Admit, inpatient status, to CCU; Patient is critically ill. Dr. Vivar attending. Septic shock based on CMS and Severe Sepsis based on Surviving Sepsis He received full 30 mL/kg bolus in ED. If unable to keep MAP >65, will need to start norepinephrine, which would indicate shock based on 2016 rec. Initial lactate was 4.5; if lactate is still elevated >4 on recheck, this would also indicate shock based on 2016 recommendations. Blood cultures already drawn. Repeat physical exam done. Repeat procalcitonin in am. Sinus tachycardia has improved after fluid boluses, from 138-105. Right sided pneumonia in an immunocompromised patient with significant smoking history. Cefepime was started in the ED -- will continue with this and add vancomycin and levofloxacin d/t immunocompromised state. Check for strep pneumo and legionella. Check sputum culture. Consult Dr. Mckinney; suspect he may require additional respiratory intervention and with smoking hx likely has underlying COPD. Ev Pan. Ask RT to provide tobacco cessation information. Nicotine patch ordered. Hold RA medications including Enbrel & Imuran. Pancytopenia Suspect d/t sepsis. If no improvement in next few days consider heme consultation. Platelets only 16 on admission. Will give platelet pack x1. Lovenox is contraindicated. SCD for DVT prevention. Macrocytic anemia - check iron studies, folate, vitamin B12. Hyperbilirubinemia Suspect d/t sepsis. Hepatomegaly and RUQ tenderness. He had liver sonogram in Aug, 2017 which was normal. Check INR. Hyponatremia and hypercalcemia Suspect d/t dehydration. Continue IVF and check in am. Advanced directives None. Requests full resuscitation. 12/08/17 Continue with levofloxacin, cefepime and vancomycin for pulmonary coverage. Neb treatments and acapella to continue. Monitor saturations and work of breathing - on 2L currently. Will have speech check swallow secondary to coughing with swallow. Hemoglobin decreased to 6.7 - transfusion initiated. Iron/B12/Folate tests pending. Platelets increased to 30K. Monitor. No Lovenox due to thrombocytopenia. Sodium with slight improvement to 128, but potassium decreased to 3.7. Will change IVF to NS with 20KCl and 20KPhos and decrease rate to 75cc/hr. BP improved. Recheck CMP, Mg, Phos, Procalcitonin, and CBC secondary to resolving septic shock. Continues to need close nursing care and support, continue CCU monitoring. 12/09/17 Continue with levofloxacin, cefepime and vancomycin for pulmonary coverage. Neb treatments and acapella to continue. Monitor saturations and work of breathing - on 2L currently. Start Mycelex lola for thrush. Speech check recommends pureed diet as very difficult to chew foods - may need to upgrade is not liking pureed consistency. Platelets decreased to 20K. Monitor. Give platelet pack. Hemoglobin improved to 8.2 post transfusion yesterday. Sodium improvement to 134, with potassium and phos normal at 4.2 and 4.3 respectively. Continue IVF to NS with 20KCl and 20KPhos but decrease rate to 50cc/hr. BP improved. HR still in 115 range. Start Bladder retraining - possible discontinue Rivas in near future. Start Miralax daily to help bowel function - hold with loose stool. PT/OT consult to help improve strength. Can transfer to medical floor for continuation of care. 12/10/17 The patient became confused last night and was pulling off his oxygen and pulled out his IV. He is more calm at this time but is still confused. With his severity of illness, will transfer back to intensive care when a bed is open. In the meantime will have his nurse stay close to his room and obtain continuous oximetry. Dr. Galarza was called and consulted regarding his pancytopenia. We'll check PTH regarding hypercalcemia. His hypercalcemia is likely worse than it appears since he also has hypoalbuminemia. Hold IV fluids for now. He is 9 L up on fluids. May require diuresis. Continue Rivas catheter for now. Check ammonia level regarding altered mental status. Continue with levofloxacin, cefepime and vancomycin for pneumonia with immunosuppression. Neb treatments and acapella to continue. Monitor saturations and work of breathing - now requiring 4 L PT/OT consult. 12/11/17 The patient had recurrence of elevated lactate yesterday despite continued treatment with triple antibiotics. Heart rate was back up to 130. The patient was given IV fluids. This morning hemoglobin is dropped to 7.9 and platelets are 18,000. Discussed with Dr. Galarza and we will give 1 platelet pack and 1 unit of blood. There is concern for occult malignancy and we will obtain a CT head, chest, abdomen and pelvis all without contrast today. Regarding his elevated calcium, PTH was low. Await results of CAT scans. Regarding Pseudomonas and MSSA pneumonia, continue Levaquin. Stop cefepime. Continue vancomycin for now until blood cultures have returned. 12/12/17 Continue levofloxacin and vancomycin for antimicrobial coverage. Dr Galarza considering initiation of chemotherapy. Discussed with Dr Galarza about patient significantly declined status-concern currently too ill to start chemo. Worry that a large component of patient's acute problems are due to his cancerous process - uncertain if will make much gains without treating cancer, but uncertain how well he could tolerate chemo. Ultimately decided to wait until final path report returns before initiating chemo. Dr Galarza starting treatments to help protect from tumor lysis. IVF change to D5W with 2amps Bicarb at 75cc/hr to alkalinize urine. 12/13/17 More somnolent and weak this afternoon. Oral drive decreased. Continue levofloxacin and vancomycin for antimicrobial coverage. Increase rate of D5W with 2amps Bicarb to 100 cc/hr. Did give Lasix 20mg IV to help minimize edema and increase urine output. Zometa initiated by Dr Galarza to help hypercalcemia. Cautious oral intake secondary to somnolence. Continue pain control. Restart cefepime due to worsening pneumonia. 12/14/17 Dr Samayoa discussed with family - with small cell cancer, only hope for survival is chemotherapy. With patient's significant decline, uncertain if pt could survive chemo. Will continue with antimicrobial therapy. Add Solu-Medrol to try to decrease pulmonary inflammation. Platelet transfusion given due to declining platelets of 15. IVF changed to D5 1/2NS at 75. Lasix given earlier to help motivate fluid. Will repeat dose this evening. 12/15/17 More somnolent today. Speech evaluated patient-recommends NPO (to somnolent and weak to attempt swallow). O2 needs increasing - 6L. Creatine with increase to 1.5, urine output decreasing. Platelets 27 after 2 platelet pack transfusion yesterday. HGB 7.9. Oncology planning chemotherapy this afternoon - high risk for complications, but not likely to survive without treating his cancer. Discussed with about code status. Would recommend DNR as if patient would arrest, feel resuscitative measures would be futile. needs to discuss with family about this. Will continue with antimicrobial therapy and Solu-Medrol. 12/16/17 Oncology planning chemotherapy this afternoon - high risk for complications, but not likely to survive without treating his cancer. Discussed with about code status. Would recommend DNR as if patient would arrest, feel resuscitative measures would be futile. needs to discuss with family about this. Will continue with antimicrobial therapy and Solu-Medrol. 12/17/17 Family has elected to convert to DO NOT RESUSCITATE status. Chemotherapy initiated with etoposide and carboplatin; platelets being given today for count of 20. Ongoing antibiotic therapy-day 11. Persistent dysphasia with minimal oral intake, Dobbhoff to be placed. 12/18/17 Persistent pancytopenia; day 3 chemotherapy, day 12 triple antibiotics for sepsis. Oxygen demand increasing, creatinine climbing-converted to Bumex with albumin to attempt to diurese. Chest x-ray with increasing pleural effusions and pulmonary edema. Unable to place Dobbhoff and volume status precludes TPN. Prognosis guarded at best. 12/19/17 Date 13 antibiotics with cefepime, Levaquin, and vancomycin. Remains on high dose methylprednisolone for respiratory distress. Dependent on high flow oxygen/BiPAP. Chemotherapy 12/16-12/18 for neuroendocrine malignancy. G-CSF initiated 12/19. Remains pancytopenic, 1 unit packed red blood cells today. Will require platelets if any evidence of blood loss. Anticipate platelet transfusion tomorrow. Calcium stable following treatment. Urine output improving with albumin/Bumex; BUN climbing-continue regimen today but may not be able to continue if uremia progresses. IV fluids discontinued; supplement potassium IV due to inability to take oral medications. Repeat chest x-ray in a.m. 12/20/17 Remains pancytopenic, 1 unit packed red blood cells yesterday. Platelet pack today; Afrin nasal spray as needed for minor epistaxis-no ongoing bleeding this morning. Pupil asymmetry not previously present-mental status has not deteriorated compared to yesterday or the prior day and if anything patient may be slightly more alert but with thrombocytopenia will require CT head. Will also image abdomen/pelvis due to persistent/increasing abdominal pain to exclude intra-abdominal bleed. No contrast to be given. Calcium stable following treatment. Urine output improved with albumin/Bumex; however BUN climbing. Continue albumin but will hold Bumex today. Mycelex troches discontinued nursing request, will coated tongue with nystatin suspension for management of thrush will remains on antibiotics or neutropenic. 12/21/17 Completed 14 days of cefepime, Levaquin, and vancomycin on 12/20. Remains on high dose methylprednisolone for respiratory distress. Dependent on high flow oxygen/BiPAP. Chest x-ray/exam slightly improved from pulmonary perspective. Chemotherapy 12/16-12/18 for neuroendocrine malignancy. G-CSF initiated 12/19. Neutropenic precautions initiated 12/21. Remains pancytopenic, requires blood products intermittently-will receive packed red blood cells and platelets today. Pupil asymmetry noted yesterday, CT head without acute pathology. Will discuss MRI brain with Dr. Galarza. Abdominal imaging yesterday compatible with volume overload/anasarca but no evidence of acute intra-abdominal process or hemorrhage. Sodium climbing and potassium down with attempted diuresis-D5 with KCl initiated , electrolytes to be reevaluated later in the day. Diuretics discontinued yesterday, albumin infusions decreased to 12.5 g every 8 hours. 12/22/17 Remains pancytopenic, requires blood products intermittently-will receive platelets again today. Uric acid slightly better today after IV dose of Rasburicase yesterday-redose tomorrow if no further improvement; taking allopurinol. Pupil asymmetry noted 12/20, CT head without acute pathology. Sodium stable/slightly improved with D5 infusion; potassium has corrected. Persistent metabolic acidosis consistent with renal failure. Urine output acceptable off diuretics, continue low-dose albumin due to extensive third spacing of fluids. If creatinine/BUN rise further will require volume replacement. Calcium low however I'm reluctant to treat with calcium given elevated phosphorus-continue to monitor. Mycelex troches discontinued several days ago; nystatin suspension for management of thrush while neutropenic. Given improvement in mental status and patient interest in food will resume speech therapy. PICC line to be withdrawn 4-5 cm based on chest x-ray findings. 12/23/2017 PLAN Completed 14 days of cefepime, Levaquin, and vancomycin on 12/20. Remains on methylprednisolone for respiratory failure. Dependent on high flow oxygen/BiPAP. Chemotherapy 12/16-12/18 for neuroendocrine malignancy. G-CSF initiated 12/19. Neutropenic precautions initiated 12/21. Remains pancytopenic, requires blood products intermittently-receive platelets yesterday, will replace again today. Uric acid slightly better today after IV dose of Rasburicase-taking allopurinol. Pupil asymmetry noted 12/20, CT head without acute pathology. Discussed acute kidney injury with anasarca with nephrology. Recommended D5W to help with hypernatremia. Recommended discontinuation of albumin at this time now that albumin is over 3. Could repeat IV albumin if albumin level drops below 3. Would give intermittent IV Bumex if needed for worsening urine output or hypoxia. Will obtain chest x-ray tomorrow. Discussed hypocalcemia with nephrology as well, will give Tums with meals and check a vitamin D level. If vitamin D level is low, start vitamin D. We'll still need to monitor closely for recurrence of hypercalcemia. If patient becomes symptomatic from hypocalcemia, can give IV calcium. Mycelex troches discontinued several days ago; nystatin suspension for management of thrush while neutropenic. Encourage oral nutrition, speech therapy has been consulted. Discussed thrombocytopenia and dark blood in posterior pharynx with Dr. Galarza, he recommends platelet transfusion today. Case discussed with CCU nursing, nephrology and oncology. The patient is critically ill. Greater than 45 minutes of critical care time spent seeing and evaluating the patient, determining care plan and discussing with consultants. Prognosis remains guarded. 12/24/2017 PLAN Start Levaquin prophylactically regarding neutropenia Remains on methylprednisolone and breathing treatments for respiratory failure. Chest x-ray is slowly improving. Dependent on high flow oxygen/BiPAP. Continue G-CSF (initiated 12/19). Neutropenic precautions initiated 12/21. Remains pancytopenic, requires blood products intermittently-receive platelets yesterday. Uric acid normalized-continue allopurinol. Hypocalcemia without symptoms-given IV calcium gluconate 1 g times one yesterday. Oral calcium initiated. Vitamin D levels pending Regarding worsening hypernatremia, increase D5W to 100 ML's per hour Discussed acute kidney injury with imanisarca with nephrology 12/23/2017. Recommended D5W to help with hypernatremia. Recommended discontinuation of albumin at this time now that albumin is over 3. Could repeat IV albumin if albumin level drops below 3. Repeat renal panel this afternoon Would give intermittent IV Bumex if needed for worsening urine output or hypoxia. Nystatin suspension for management of thrush while neutropenic. Encourage oral nutrition, speech therapy has been consulted. Continue daily CBC and renal panel. Check liver enzymes tomorrow. LDH is slowly improving Increase sliding scale insulin for hyperglycemia Case discussed with CCU nursing, and Dr. Galarza. The patient is critically ill. Greater than 45 minutes of critical care time spent seeing and evaluating the patient, determining care plan and discussing with consultants. Prognosis remains guarded. 12/25/2017 PLAN Clinically the patient appears stable. He continues to have good urine output without diuretics or albumin. BUN and creatinine remain elevated at 103 and 2.4 respectively. Patient continues to have fairly severe pancytopenia and white count today is 0. Hemoglobin 7.2. Platelets are 5. Fortunately, he has not had any bleeding overnight. By mouth intake is intermittent and we are encouraging increased caloric intake. Unable to place Dobbhoff. We'll start a multivitamin once daily. Due to nightmares, we'll discontinue morphine at patient's request. We'll have when necessary Dilaudid available if needed. Remains on methylprednisolone and breathing treatments for respiratory failure, consider decreasing steroids. Chest x-ray is slowly improving. Dependent on high flow oxygen/BiPAP. Continue G-CSF (initiated 12/19). Neutropenic precautions initiated 12/21. Remains pancytopenic, requires blood products intermittently-give platelets today for platelet count of 5 Uric acid normalized-continue allopurinol. Hypocalcemia without symptoms-give IV calcium again today. Oral calcium initiated. Vitamin D levels pending Regarding hypernatremia and metabolic acidosis, continue D5W with 1 amp of bicarbonate Recheck renal panel later today. Would give intermittent IV Bumex if needed for worsening urine output or hypoxia. Nystatin suspension for management of thrush while neutropenic. Encourage oral nutrition, speech therapy has been consulted. Continue daily CBC and renal panel. Continue sliding scale insulin for hyperglycemia The patient is critically ill. Greater than 45 minutes of critical care time spent seeing and evaluating the patient, determining care plan Prognosis remains guarded. 12/27/2017 PLAN Clinically, the patient appears more edematous today. Will decrease IV fluid rate to 50. Will get Bumex 1 mg IV 1 now and recheck renal panel later today. Patient was given 2 g of calcium gluconate IV this morning. We'll recheck this afternoon. The patient is asymptomatic from hypocalcemia. Vitamin D levels are pending. Oral intake has increased. Encourage supplement shakes for added nutrition. Platelets are better today. He did receive a platelet pack yesterday. No bleeding noted yesterday or today. Patient continues to require 15 L per high flow nasal cannula. Solu-Medrol decreased yesterday. Regarding severe neutropenia, Continue G-CSF (initiated 12/19). Neutropenic precautions initiated 12/21. Anemia is stable Uric acid normalized-continue allopurinol. Hypernatremia is better, decrease IV fluid rate to 50. Considered DC IV fluids if blood pressure is stable Recheck renal panel later today. Continue Levaquin for prophylaxis while patient is neutropenic Nystatin suspension for management of thrush while neutropenic. Continue daily CBC and renal panel. Continue sliding scale insulin for hyperglycemia The patient is critically ill. Greater than 45 minutes of critical care time spent seeing and evaluating the patient, determining care plan Prognosis remains guarded. 12/28/17 Persistent pancytopenia, 1 unit packed red blood cells given today. Potassium supplemented IV. Remains on high flow oxygen, Solu-Medrol decreased further. Sodium level climbing again after attempts to diurese over the weekend. May require resumption of fluids if climb significantly.
[2017-12-28] MEDS: POTASSIUM CHLORIDE PREMIX 10 MEQ/100 ML BAG IV SCH ×4 (18:25→22:04)
[2017-12-28] MEDS: TBO-FILGRASTIM 480mcg/0.8ml INJECTION SQ SCH (18:25)
[2017-12-29] MEDS: INSULIN ASPART 100unit/ml INJECTION SQ PRN ×3 (01:08→19:25)
[2017-12-29] MEDS: METOCLOPRAMIDE 10mg/2ml INJECTION IVP SCH ×2 (04:28→10:22)
[2017-12-29] MEDS: ALBUTEROL/IPRATROPIUM 2.5mg-0.5mg/3ml NEB AEROSOL SCH ×5 (04:45→21:01)
[2017-12-29] MEDS: METHYLPREDNISOLONE SOD SUCC 125mg/2ml INJECTION IVP SCH ×3 (07:43→21:06)
[2017-12-29] MEDS: PANTOPRAZOLE 40 MG INJECTION IVP SCH ×2 (07:43→09:04)
[2017-12-29] MEDS: CEFEPIME 1 GM in NS 50 ML IV SCH ×2 (07:44→20:55)
[2017-12-29] MEDS: NICOTINE 7 MG PATCH TD SCH ×2 (07:51→09:02)
[2017-12-29] MEDS ORDERED: NICOTINE PATCH REMOVAL TD SCH (09:00)
[2017-12-29] MEDS: CALCIUM 600 + VIT D 400 TABLET PO SCH ×2 (09:01→22:27)
[2017-12-29] MEDS: ALLOPURINOL 100 MG TABLET PO SCH (09:01)
[2017-12-29] MEDS: MULTI-VITAMIN + MINERAL TABLET PO SCH (09:02)
[2017-12-29] MEDS: NYSTATIN 500,000 units/5 ml ORAL LIQUID PO SCH ×4 (09:04→22:26)
[2017-12-29] MEDS: SALINE 0.65% NASAL SPRAY 44 ML BOTTLE EA NOSTRIL SCH ×3 (10:22→21:15)
[2017-12-29] MEDS: HYDROMORPHONE 2 MG/ML INJECTION IVP PRN ×2 (11:18→16:26)
[2017-12-29] MEDS ORDERED: FALL RISK - PHARMACY CONSULT XX ONE (11:30)
[2017-12-29] MEDS ORDERED: TPN - PHARMACY CONSULT MC ONE (12:32)
--- NOTE | 2017-12-29 14:19 | Pharmacy Consult-TPN/PPN ---
Pharmacy Consult-TPN/PPN - Laboratory Information Chemistry Turbidity < 20 (0-20) 12/29/17 04:06 Sodium 155 MEQ/L (134-144) H 12/29/17 04:06 Potassium 3.8 MEQ/L (3.6-5) 12/29/17 04:06 Chloride 116 MEQ/L (98-107) H 12/29/17 04:06 Carbon Dioxide 24 MEQ/L (22-30) 12/29/17 04:06 Anion Gap 15 MEQ/L (5-15) 12/29/17 04:06 BUN 118.0 MG/DL (9-20) H* 12/29/17 04:06 Creatinine 2.5 mg/dL (0.8-1.5) H 12/29/17 04:06 GFR Calculation 27 12/29/17 04:06 BUN/Creatinine Ratio 47 RATIO (6-26) H 12/29/17 04:06 Glucose 126 MG/DL (75-110) H 12/29/17 04:06 Glucometer 149 mg/dL (65-110) 12/29/17 13:19 Calculated Osmolality 337 MOSM/KG (261-280) H 12/29/17 04:06 Uric Acid 5.8 mg/dL (3.5-8.5) 12/26/17 04:02 Calcium 6.1 MG/DL (8.4-10.2) L 12/29/17 04:06 Ionized Calcium Nestor 0.73 MMOL/L (1.12-1.32) L 12/26/17 05:12 Phosphorus 4.4 MG/DL (2.5-4.5) 12/29/17 04:06 Magnesium 1.9 MG/DL (1.6-2.3) 12/27/17 04:04 Iron 50 UG/DL (49-181) 12/07/17 08:49 TIBC 188 UG/DL (261-497) L 12/07/17 08:49 % Saturation 27 % (13-59) 12/07/17 08:49 Ferritin 68911 NG/ML (18-464) H 12/07/17 08:49 Total Bilirubin 2.30 MG/DL (0.20-1.30) H 12/27/17 04:04 Conjugated Bilirubin 0.00 mg/dL (0.00-0.30) 12/25/17 04:03 Unconjugated Bilirubin 0.70 mg/dL (0.00-1.1) 12/25/17 04:03 Icterus Index < 2 (0-7) 12/29/17 04:06 GGT 249 U/L (12-64) H 12/10/17 13:26 AST 50 U/L (17-59) 12/27/17 04:04 ALT 27 U/L (1-50) 12/27/17 04:04 Alkaline Phosphatase 188 U/L (38-126) H 12/27/17 04:04 Ammonia < 9 UMOL/L (9-33) L 12/10/17 10:34 Lactate Dehydrogenase 2517 U/L (313-618) H 12/26/17 04:02 Creatine Kinase 125 U/L (55-170) 12/07/17 08:49 Troponin I < 0.012 ng/ml (0-0.12) 12/07/17 08:49 C-Reactive Protein 58.6 MG/L (0-9) H 12/23/17 04:12 Total Protein 5.2 g/dL (6.3-8.2) L 12/27/17 04:04 Albumin 2.7 g/dL (3.5-5.0) L 12/29/17 04:06 Globulin 2.5 G/DL (2.4-3.6) 12/27/17 04:04 Albumin/Globulin Ratio 1.1 RATIO (1.1-2.2) 12/27/17 04:04 Prealbumin < 3.0 MG/DL (17.6-36.0) L 12/07/17 12:57 Lipase 226 U/L (23-300) 12/07/17 08:49 Plasma Lactate 2.0 MMOL/L (0.6-2.2) 12/10/17 20:09 Vitamin B12 981 PG/ML (239-931) H 12/07/17 08:49 25-OH Vitamin D Total 18 ng/mL (30-100) L 12/24/17 04:02 Vit D 1,25-Dihydroxy 35 pg/mL (18-64) 12/24/17 04:02 Folate 5.3 NG/ML (2.76-20) 12/07/17 08:49 Procalcitonin 4.09 NG/ML H* 12/10/17 15:57 TSH 1.33 MIU/L (0.47-4.68) 12/10/17 10:34 PTH Intact 13.5 PG/ML (38.2-70.7) L 12/10/17 04:00 Specimen Hemolysis < 15 (0-25) 12/29/17 04:06 Intake and Output 12/28/17 12/29/17 12/30/17 06:59 06:59 06:59 Intake Total 1330 / 1330 1350.000 / 1350.000 50 / 50 Output Total 1407 / 1407 914 / 914 201 / 201 Balance -77 / -77 436.000 / 436.000 -151 / -151 Weight 84.7 kg 81.7 kg Intake: IV 550 / 550 600.000 / 600.000 50 / 50 Albumin Human 12.5 g In 100 / 100 50 / 50 Container,Empty 0 ml @ 50 mls/ hr IV Q8H [facility] Rx#:[id number] Calcium Gluconate 2,000 mg In 120 / 120 Ns 100 ml @ 50 mls/hr IV O ONE Rx#:[id number] Calcium Gluconate 1,000 mg In 60 / 60 Ns 50 ml @ 200 mls/hr IV O ONE Rx#:[id number] Cefepime 1 gm In Ns 50 ml @ 200 150 / 150 150.000 / 150.000 50 / 50 mls/hr IV Q8H [facility] Rx#: [id number] Potassium Chloride Premix 10 400 / 400 meq In 100 ml @ 100 mls/hr IV Q1H [facility] Rx#:[id number] Oral 530 / 530 750 / 750 Intake (Blood Product) Amt 250 / 250 Output: Urine Amount (Catheter) 1407 / 1407 914 / 914 201 / 201 Other: Urine Appearance Sediment Hematuria Cloudy Sediment Hematuria Urine Color Yellow Dark Yellow Tea Colored Stool Color Brown Brown Stool Consistency Soft Soft Size of Bowel Movement Moderate Smear # Bowel Movements 1 1 - Consult Information TPN CONSULT: 57 yr old male admitted with sepsis and pneumonia and now post chemotherapy with renal failure and inability to eat meals. TPN not available from cruise staff member so PPN with Lipids will be substituted. Patient will receive the 4.25% AA/5% Dextrose 2 liter PPN bag @ 82 ml/hr (2 liters in 24 hrs) and 250 ml 20% Lipids. The PPN will only provide 340 kcal from the Dextrose and 500 kcal from the lipids. As patient tolerates, the lipids will be increased to increase his calorie intake. The PPN is a custom formula to address the patient's elevated Sodium and Chloride and renal impairment. The Sodium and the Chloride have been eliminated. Potassium in the form of KPhos and K Acetate have been used. The patient will be receiving loop diuretics so potassium will be closely monitored and adjusted as needed. Also Calcium, Magnesium, Multivitamins and Trace Elements have been added. Pharmacy will monitor closely and adjust the electrolytes. Thank you. Elenita Hernandez, PharmD
--- NOTE | 2017-12-29 14:37 | Progress Note ---
<Sharifa Duarte L - Last Filed: 12/29/17 14:34> Oncology Subjective Alone in room. Nonresponsive to verbal stimuli. Unable to obtain review of system Exam Vital signs: Temperature 98.2 F 12/29/17 11:48 Pulse Rate 116 H 12/29/17 12:00 Respiratory Rate 20 12/29/17 12:45 Blood Pressure 109/70 12/29/17 11:00 Pulse Oximetry 97 12/29/17 12:45 - Constitutional no acute distress, somnolent - Routine HEENT Exam Head: Present: normocephalic ENT: Present: mucous membranes dry - Routine Neck Exam Present: supple. Absent: lymphadenopathy - Routine Respiratory Exam Present: crackles (bibasilar). Absent: wheezes - Routine Cardiovascular Exam Present: RRR, tachycardia - Routine Abdominal Exam Present: soft, distended (decreased bowel sounds present) - Routine Exam Scrotal: Present: swelling - Routine Extremities Exam Present: edema - Routine Skin Exam Present: dry, petechiae (unchanged), lesions (penis/scrotal). Absent: rash - Routine Neurological Exam Present: altered mental status - Routine Psychiatric Exam Present: unable to assess Oncology Results - Labs CBC & Chem 7: 12/29/17 04:06 12/29/17 04:06 Labs: Short CBC 12/28/17 12/29/17 Range/Units 14:21 04:06 WBC 0.0 L* (4.5-11.0) T/MM3 Hgb 8.4 L D 8.2 L (13.5-17.5) GM/DL Hct 23.8 L D (41-53) % Plt Count 5 L* D (130-400) T/MM3 BMP 12/29/17 04:06 Sodium 155 H Potassium 3.8 Chloride 116 H Carbon Dioxide 24 BUN 118.0 H* Creatinine 2.5 H Glucose 126 H Calcium 6.1 L Liver Function 12/29/17 Range/Units 04:06 Albumin 2.7 L (3.5-5.0) g/dL Assessment and Plan Assessment and Plan: Assessment 1. 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 Began chemotherapy with carboplatin and etoposide on 12/16/17. Completed on 12/18/17. Started G-CSF 12/19/17 and continues daily. Severe pancytopenia even prior to chemotherapy secondary to bone marrow involvement; severe pancytopenia persists. 2. Moderate respiratory distress/respiratory failure due to advanced disease and obstructive pneumonia. Pulmonology following. 3. Hypercalcemia due to malignancy. Improving, calcium level 10.0 on 12/17/17, 8.6 on 12/18/17, 7.9 on 12/19/17. 6.8 with albumin of 2.7 on 12/20/17. On 12/23/17 calcium is 5.0 with Albumin of 2.9. May benefit from calcium replacement. Discussed with hospitalist. Calcium 12/24/17 is 5.1. Calcium 12/25/17 is 5.6. Calcium 12/28/17 is 6.3, 12/29/17 is 6.1. 4. Pancytopenia; neutropenia and thrombocytopenia due to bone metastasis and most likely bone marrow metastases. Platelets on 12/17/17 are 20 K, platelets 23K on 12/18/17. HGB on 12/18/17 is 7.3, WBC 1.9/ANC 1.7, 12/19/17: WBC 2.0, ANC 1.9, PLT 16. /08/29 WBC 1.3, ANC-1.1, PLT-9 Platelets given. 12/21/17 -WBC 0.5/ANC is 0.4, HGB 6.5, PLT 7. One unit PRBC's given 12/23/17: WBC-0.1 24% neutrophils. Hgb 7.1 and PLT 9. Will give platelets. 12/24/17: WBC 0.1, 10%neutrophils. Hgb 7.5, and PLT14. 12/25/17 WBC 0.0, Hgb 7.2, and PLT 5. Given 1 Unit platelets today 12/25/16. Repeat platelets 12/25/17 are 33 12/28/17: WBC 0.0, Hgb 6.8, and PLT 11. Received 1 unit PRBC's 12/27/17 and again 12/28/17. 1 unit PLT given 12/27/17. 12/29/17: WBC 0.0, Hgb 8.2 and PLT 5. To receive 1 unit PLT today, 12/29/17 5. Renal insufficiency Creatinine stable at 2.0 on 12/20/17, increased at 2.3 on 12/21/17. Creat 2.5 on 12/23/17. Creat 2.4 on 12/24/17. Creat 2.1 on @1307. Creatinine 12/27/17 is 2.3, 12/28/17 is 2.4, 12/29/17 is 2.5. 6. Unequal pupils with negative CT. Will follow. 8. Hyperuricemia, uric acid 8.6 on12/21/17, 7.1 on 12/23/17, 6.6 on 12/24/17, and 6.2 on 12/25/17. Improved. 12/28/17 is 5.8. Plan Continue aggressive supportive care for now. Dr. Galarza recommends consider hospice care if counts have not recovered by 01/05/18. - Time Spent With Patient Total time spent is greater than 50% in coordination of care (as documented) at patient's floor/unit and/or counseling patient: less than 15 minutes <Lizzette Samayoa - Last Filed: 12/29/17 18:16> Exam Vital signs: Temperature 97.7 F 12/29/17 16:00 Pulse Rate 118 H 12/29/17 16:05 Respiratory Rate 24 12/29/17 16:35 Blood Pressure 103/69 12/29/17 16:05 Pulse Oximetry 87 L 12/29/17 16:35 Oncology Results - Labs CBC & Chem 7: 12/29/17 04:06 12/29/17 04:06 Labs: Short CBC 12/29/17 Range/Units 04:06 WBC 0.0 L* (4.5-11.0) T/MM3 Hgb 8.2 L (13.5-17.5) GM/DL Hct 23.8 L D (41-53) % Plt Count 5 L* D (130-400) T/MM3 BMP 12/29/17 04:06 Sodium 155 H Potassium 3.8 Chloride 116 H Carbon Dioxide 24 BUN 118.0 H* Creatinine 2.5 H Glucose 126 H Calcium 6.1 L Liver Function 12/29/17 Range/Units 04:06 Albumin 2.7 L (3.5-5.0) g/dL Assessment and Plan Assessment and Plan: I have seen I have seen the patient with Yovana Duarte NP. We will continue supportive care. - Time Spent With Patient Total time spent is greater than 50% in coordination of care (as documented) at patient's floor/unit and/or counseling patient: less than 15 minutes
[2017-12-29] MEDS ORDERED: FAT EMULSION 20% 250 ML IV SCH (16:00)
[2017-12-29] MEDS ORDERED: CLINIMIX IV SCH (16:00)
[2017-12-29] MEDS ORDERED: PPN IV SCH (16:00)
--- NOTE | 2017-12-29 16:13 | Progress Note ---
- Date 12/29/17 Subjective: Mr. Baker is more somnolent today. Nursing reports he was too drowsy to take oral medications or to even take thickened water this morning. Speech has been mumbled; nursing reports patient is intermittently pulling oxygen off and this appeared more restless than usual. Air hunger described overnight and BiPAP again tried briefly but the patient did not tolerate it well. Increased serous drainage from the lower extremities. One bowel movement overnight. Objective Vital signs: Temperature 98.2 F 12/29/17 11:48 Pulse Rate 116 H 12/29/17 12:00 Respiratory Rate 20 12/29/17 12:45 Blood Pressure 109/70 12/29/17 11:00 Pulse Oximetry 97 12/29/17 12:45 Sedated, did not respond to voice or to exam Pupils equal, conjunctiva clear, sclera anicteric; oral membranes dry; simple face mask on at time of my assessment. Respirations moderately labored, good airflow, anterior breath sounds clear although diminished at the bases/laterally Regular rhythm, distant heart tones, low-grade tachycardia Abdomen is very distended, appeared tender to palpation in the upper abdomen/ right upper quadrant again today-not noticed for the past couple of days, no bowel sounds appreciated Edema bilateral lower extremities-legs wrapped due to serous drainage; increase edema at the right wrist compared to the left. Minor tremulousness/myoclonus left upper extremity Rhythm: Sinus Tachycardia Height/Weight/BMI: Height 1.7 m Weight 81.7 kg Body Mass Index 28.2 Results - Labs CBC & Chem 7: 12/29/17 04:06 12/29/17 04:06 Microbiology Results: Microbiology 12/10/17 15:57 Peripheral/Iv Start Blood Culture - Final No Growth After 5 Days 12/10/17 16:00 Peripheral/Iv Start Blood Culture - Final No Growth After 5 Days 12/07/17 12:45 Sputum, Expectorated Gram Stain - Final 12/07/17 12:45 Sputum, Expectorated Sputum Culture - Final Pseudomonas aeruginosa Haemophilus influenzae Staphylococcus aureus Normal Resp Pallavi incl. Yeast Assessment and Plan (1) Septic shock Current visit: Yes Status: Acute (2) Pneumonia Current visit: Yes Status: Acute (3) Neuroendocrine carcinoma metastatic to liver Problem details: Lung/liver/bone involvement Current visit: Yes Status: Acute Assessment and Plan: IMPRESSION Sepsis secondary to Right sided pneumonia Septic shock based on lactate of 4.5 (per CMS) Severe sepsis based on 2016 Surviving Sepsis Guidelines Organ dysfunction = MAP <70, hyperbilirubinemia (2.4), thrombocytopenia ( 16) SOFA on admission = 7, presumed baseline of 0 Pneumonia -right upper lobe and right lower lobe-sputum positive for Pseudomonas , Haemophilus, and MSSA; Completed 14 days of cefepime, Levaquin, and vancomycin on 12/20. 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 Chemotherapy 12/16- for neuroendocrine malignancy. Pancytopenia (POA) including platelet count of 16, WBC 3.7, and hgb of 8.9 on admission Hyperbilirubinemia, elevated AST and Alk phos, POA Hypercalcemia-Zometa given 12/13--> hypocalcemia Hypoalbuminemia-improved with albumin IV Elevated LDH Elevated CRP and procalcitonin, secondary to acute infection Severe PCM - prealbumin undetectable Thrush Macrocytic anemia Rheumatoid arthritis-Imuran/Enbrel Acute on chronic Hyponatremia (POA) (baseline 131-134)-resolved Hypokalemia-12/19/17 Epistaxis, minor-12/20/17, resolved Pupil asymmetry noted 12/20, CT head without acute pathology. Immunocompromised pt-neutropenic, recent chemotherapy-start Levaquin prophylactically on 12/24/2017, will switch to cefepime 12/27/2017 for better Pseudomonas coverage with history of Pseudomonas. Encephalopathy-improving Sinus tachycardia Dysphagia-speech therapy consulted Volume overload/anasarca-worsening today Hypernatremia-12/21/17-slowly improving Metabolic acidosis-12/21/17-mild improvement with IV fluids with bicarbonate- currently resolved Acute Hypoxia respiratory failure-currently on 11 L; BiPAP when necessary initiated 12/18 LIEN-stable. With good urine output with when necessary Bumex. Hypocalcemia without symptoms-given IV calcium gluconate with slow improvement. Still on oral calcium Hyperuricemia -received rasburicase IV and uric acid level now normal Hyperglycemia secondary to steroids PLAN Worsening edema, serous drainage from bilateral lower extremities and right upper extremity present today. Sodium, BUN, and creatinine climbing slowly. Albumin down slightly. Discussed options with the patient's -prognosis poor however management of electrolytes and improve nutrition or critical if patient is any chance of survival. Subsequently TPN will be initiated recognizing that the volume management will be problematic. Bumex will be added later today in anticipation of need to take equivalent volume off. Calcium lower-replace IV today. Platelets down-platelet pack to be given. Profound neutropenia persists, continue Neupogen. Continue supportive care; will attempt to discuss goals with patient's when she is available-patient no longer capable of participating in conversations. Discussed with Dr. Mckinney and Dr. Samayoa. Discussed with Pharm.D. Prognosis remains guarded. The patient is critically ill. Supplemental history provided by nursing. DVT Prophylaxis: SCD's GI Prophylaxis: Protonix Resuscitation Status: Do Not Resuscitate - Physician Narrative Narrative: Date: 12/29/17 Time: 1608 Hospital Course Summary Disclaimer: The visit summary below is not to be considered part of the above Progress Note. Hospital Course: 12/07/17 Admit, inpatient status, to CCU; Patient is critically ill. Dr. Vivar attending. Septic shock based on CMS and Severe Sepsis based on Surviving Sepsis He received full 30 mL/kg bolus in ED. If unable to keep MAP >65, will need to start norepinephrine, which would indicate shock based on 2016 rec. Initial lactate was 4.5; if lactate is still elevated >4 on recheck, this would also indicate shock based on 2016 recommendations. Blood cultures already drawn. Repeat physical exam done. Repeat procalcitonin in am. Sinus tachycardia has improved after fluid boluses, from 138-105. Right sided pneumonia in an immunocompromised patient with significant smoking history. Cefepime was started in the ED -- will continue with this and add vancomycin and levofloxacin d/t immunocompromised state. Check for strep pneumo and legionella. Check sputum culture. Consult Dr. Mckinney; suspect he may require additional respiratory intervention and with smoking hx likely has underlying COPD. Ev Pan. Ask RT to provide tobacco cessation information. Nicotine patch ordered. Hold RA medications including Enbrel & Imuran. Pancytopenia Suspect d/t sepsis. If no improvement in next few days consider heme consultation. Platelets only 16 on admission. Will give platelet pack x1. Lovenox is contraindicated. SCD for DVT prevention. Macrocytic anemia - check iron studies, folate, vitamin B12. Hyperbilirubinemia Suspect d/t sepsis. Hepatomegaly and RUQ tenderness. He had liver sonogram in Aug, 2017 which was normal. Check INR. Hyponatremia and hypercalcemia Suspect d/t dehydration. Continue IVF and check in am. Advanced directives None. Requests full resuscitation. 12/08/17 Continue with levofloxacin, cefepime and vancomycin for pulmonary coverage. Neb treatments and acapella to continue. Monitor saturations and work of breathing - on 2L currently. Will have speech check swallow secondary to coughing with swallow. Hemoglobin decreased to 6.7 - transfusion initiated. Iron/B12/Folate tests pending. Platelets increased to 30K. Monitor. No Lovenox due to thrombocytopenia. Sodium with slight improvement to 128, but potassium decreased to 3.7. Will change IVF to NS with 20KCl and 20KPhos and decrease rate to 75cc/hr. BP improved. Recheck CMP, Mg, Phos, Procalcitonin, and CBC secondary to resolving septic shock. Continues to need close nursing care and support, continue CCU monitoring. 12/09/17 Continue with levofloxacin, cefepime and vancomycin for pulmonary coverage. Neb treatments and acapella to continue. Monitor saturations and work of breathing - on 2L currently. Start Mycelex lola for thrush. Speech check recommends pureed diet as very difficult to chew foods - may need to upgrade is not liking pureed consistency. Platelets decreased to 20K. Monitor. Give platelet pack. Hemoglobin improved to 8.2 post transfusion yesterday. Sodium improvement to 134, with potassium and phos normal at 4.2 and 4.3 respectively. Continue IVF to NS with 20KCl and 20KPhos but decrease rate to 50cc/hr. BP improved. HR still in 115 range. Start Bladder retraining - possible discontinue Rivas in near future. Start Miralax daily to help bowel function - hold with loose stool. PT/OT consult to help improve strength. Can transfer to medical floor for continuation of care. 12/10/17 The patient became confused last night and was pulling off his oxygen and pulled out his IV. He is more calm at this time but is still confused. With his severity of illness, will transfer back to intensive care when a bed is open. In the meantime will have his nurse stay close to his room and obtain continuous oximetry. Dr. Galarza was called and consulted regarding his pancytopenia. We'll check PTH regarding hypercalcemia. His hypercalcemia is likely worse than it appears since he also has hypoalbuminemia. Hold IV fluids for now. He is 9 L up on fluids. May require diuresis. Continue Rivas catheter for now. Check ammonia level regarding altered mental status. Continue with levofloxacin, cefepime and vancomycin for pneumonia with immunosuppression. Neb treatments and acapella to continue. Monitor saturations and work of breathing - now requiring 4 L PT/OT consult. 12/11/17 The patient had recurrence of elevated lactate yesterday despite continued treatment with triple antibiotics. Heart rate was back up to 130. The patient was given IV fluids. This morning hemoglobin is dropped to 7.9 and platelets are 18,000. Discussed with Dr. Galarza and we will give 1 platelet pack and 1 unit of blood. There is concern for occult malignancy and we will obtain a CT head, chest, abdomen and pelvis all without contrast today. Regarding his elevated calcium, PTH was low. Await results of CAT scans. Regarding Pseudomonas and MSSA pneumonia, continue Levaquin. Stop cefepime. Continue vancomycin for now until blood cultures have returned. 12/12/17 Continue levofloxacin and vancomycin for antimicrobial coverage. Dr Galarza considering initiation of chemotherapy. Discussed with Dr Galarza about patient significantly declined status-concern currently too ill to start chemo. Worry that a large component of patient's acute problems are due to his cancerous process - uncertain if will make much gains without treating cancer, but uncertain how well he could tolerate chemo. Ultimately decided to wait until final path report returns before initiating chemo. Dr Galarza starting treatments to help protect from tumor lysis. IVF change to D5W with 2amps Bicarb at 75cc/hr to alkalinize urine. 12/13/17 More somnolent and weak this afternoon. Oral drive decreased. Continue levofloxacin and vancomycin for antimicrobial coverage. Increase rate of D5W with 2amps Bicarb to 100 cc/hr. Did give Lasix 20mg IV to help minimize edema and increase urine output. Zometa initiated by Dr Galarza to help hypercalcemia. Cautious oral intake secondary to somnolence. Continue pain control. Restart cefepime due to worsening pneumonia. 12/14/17 Dr Samayoa discussed with family - with small cell cancer, only hope for survival is chemotherapy. With patient's significant decline, uncertain if pt could survive chemo. Will continue with antimicrobial therapy. Add Solu-Medrol to try to decrease pulmonary inflammation. Platelet transfusion given due to declining platelets of 15. IVF changed to D5 1/2NS at 75. Lasix given earlier to help motivate fluid. Will repeat dose this evening. 12/15/17 More somnolent today. Speech evaluated patient-recommends NPO (to somnolent and weak to attempt swallow). O2 needs increasing - 6L. Creatine with increase to 1.5, urine output decreasing. Platelets 27 after 2 platelet pack transfusion yesterday. HGB 7.9. Oncology planning chemotherapy this afternoon - high risk for complications, but not likely to survive without treating his cancer. Discussed with about code status. Would recommend DNR as if patient would arrest, feel resuscitative measures would be futile. needs to discuss with family about this. Will continue with antimicrobial therapy and Solu-Medrol. 12/16/17 Oncology planning chemotherapy this afternoon - high risk for complications, but not likely to survive without treating his cancer. Discussed with about code status. Would recommend DNR as if patient would arrest, feel resuscitative measures would be futile. needs to discuss with family about this. Will continue with antimicrobial therapy and Solu-Medrol. 12/17/17 Family has elected to convert to DO NOT RESUSCITATE status. Chemotherapy initiated with etoposide and carboplatin; platelets being given today for count of 20. Ongoing antibiotic therapy-day 11. Persistent dysphasia with minimal oral intake, Dobbhoff to be placed. 12/18/17 Persistent pancytopenia; day 3 chemotherapy, day 12 triple antibiotics for sepsis. Oxygen demand increasing, creatinine climbing-converted to Bumex with albumin to attempt to diurese. Chest x-ray with increasing pleural effusions and pulmonary edema. Unable to place Dobbhoff and volume status precludes TPN. Prognosis guarded at best. 12/19/17 Date 13 antibiotics with cefepime, Levaquin, and vancomycin. Remains on high dose methylprednisolone for respiratory distress. Dependent on high flow oxygen/BiPAP. Chemotherapy 12/16-12/18 for neuroendocrine malignancy. G-CSF initiated 12/19. Remains pancytopenic, 1 unit packed red blood cells today. Will require platelets if any evidence of blood loss. Anticipate platelet transfusion tomorrow. Calcium stable following treatment. Urine output improving with albumin/Bumex; BUN climbing-continue regimen today but may not be able to continue if uremia progresses. IV fluids discontinued; supplement potassium IV due to inability to take oral medications. Repeat chest x-ray in a.m. 12/20/17 Remains pancytopenic, 1 unit packed red blood cells yesterday. Platelet pack today; Afrin nasal spray as needed for minor epistaxis-no ongoing bleeding this morning. Pupil asymmetry not previously present-mental status has not deteriorated compared to yesterday or the prior day and if anything patient may be slightly more alert but with thrombocytopenia will require CT head. Will also image abdomen/pelvis due to persistent/increasing abdominal pain to exclude intra-abdominal bleed. No contrast to be given. Calcium stable following treatment. Urine output improved with albumin/Bumex; however BUN climbing. Continue albumin but will hold Bumex today. Mycelex troches discontinued nursing request, will coated tongue with nystatin suspension for management of thrush will remains on antibiotics or neutropenic. 12/21/17 Completed 14 days of cefepime, Levaquin, and vancomycin on 12/20. Remains on high dose methylprednisolone for respiratory distress. Dependent on high flow oxygen/BiPAP. Chest x-ray/exam slightly improved from pulmonary perspective. Chemotherapy 12/16-12/18 for neuroendocrine malignancy. G-CSF initiated 12/19. Neutropenic precautions initiated 12/21. Remains pancytopenic, requires blood products intermittently-will receive packed red blood cells and platelets today. Pupil asymmetry noted yesterday, CT head without acute pathology. Will discuss MRI brain with Dr. Galarza. Abdominal imaging yesterday compatible with volume overload/anasarca but no evidence of acute intra-abdominal process or hemorrhage. Sodium climbing and potassium down with attempted diuresis-D5 with KCl initiated , electrolytes to be reevaluated later in the day. Diuretics discontinued yesterday, albumin infusions decreased to 12.5 g every 8 hours. 12/22/17 Remains pancytopenic, requires blood products intermittently-will receive platelets again today. Uric acid slightly better today after IV dose of Rasburicase yesterday-redose tomorrow if no further improvement; taking allopurinol. Pupil asymmetry noted 12/20, CT head without acute pathology. Sodium stable/slightly improved with D5 infusion; potassium has corrected. Persistent metabolic acidosis consistent with renal failure. Urine output acceptable off diuretics, continue low-dose albumin due to extensive third spacing of fluids. If creatinine/BUN rise further will require volume replacement. Calcium low however I'm reluctant to treat with calcium given elevated phosphorus-continue to monitor. Mycelex troches discontinued several days ago; nystatin suspension for management of thrush while neutropenic. Given improvement in mental status and patient interest in food will resume speech therapy. PICC line to be withdrawn 4-5 cm based on chest x-ray findings. 12/23/2017 PLAN Completed 14 days of cefepime, Levaquin, and vancomycin on 12/20. Remains on methylprednisolone for respiratory failure. Dependent on high flow oxygen/BiPAP. Chemotherapy 12/16-12/18 for neuroendocrine malignancy. G-CSF initiated 12/19. Neutropenic precautions initiated 12/21. Remains pancytopenic, requires blood products intermittently-receive platelets yesterday, will replace again today. Uric acid slightly better today after IV dose of Rasburicase-taking allopurinol. Pupil asymmetry noted 12/20, CT head without acute pathology. Discussed acute kidney injury with anasarca with nephrology. Recommended D5W to help with hypernatremia. Recommended discontinuation of albumin at this time now that albumin is over 3. Could repeat IV albumin if albumin level drops below 3. Would give intermittent IV Bumex if needed for worsening urine output or hypoxia. Will obtain chest x-ray tomorrow. Discussed hypocalcemia with nephrology as well, will give Tums with meals and check a vitamin D level. If vitamin D level is low, start vitamin D. We'll still need to monitor closely for recurrence of hypercalcemia. If patient becomes symptomatic from hypocalcemia, can give IV calcium. Mycelex troches discontinued several days ago; nystatin suspension for management of thrush while neutropenic. Encourage oral nutrition, speech therapy has been consulted. Discussed thrombocytopenia and dark blood in posterior pharynx with Dr. Galarza, he recommends platelet transfusion today. Case discussed with CCU nursing, nephrology and oncology. The patient is critically ill. Greater than 45 minutes of critical care time spent seeing and evaluating the patient, determining care plan and discussing with consultants. Prognosis remains guarded. 12/24/2017 PLAN Start Levaquin prophylactically regarding neutropenia Remains on methylprednisolone and breathing treatments for respiratory failure. Chest x-ray is slowly improving. Dependent on high flow oxygen/BiPAP. Continue G-CSF (initiated 12/19). Neutropenic precautions initiated 12/21. Remains pancytopenic, requires blood products intermittently-receive platelets yesterday. Uric acid normalized-continue allopurinol. Hypocalcemia without symptoms-given IV calcium gluconate 1 g times one yesterday. Oral calcium initiated. Vitamin D levels pending Regarding worsening hypernatremia, increase D5W to 100 ML's per hour Discussed acute kidney injury with anasarca with nephrology 12/23/2017. Recommended D5W to help with hypernatremia. Recommended discontinuation of albumin at this time now that albumin is over 3. Could repeat IV albumin if albumin level drops below 3. Repeat renal panel this afternoon Would give intermittent IV Bumex if needed for worsening urine output or hypoxia. Nystatin suspension for management of thrush while neutropenic. Encourage oral nutrition, speech therapy has been consulted. Continue daily CBC and renal panel. Check liver enzymes tomorrow. LDH is slowly improving Increase sliding scale insulin for hyperglycemia Case discussed with CCU nursing, and Dr. Galarza. The patient is critically ill. Greater than 45 minutes of critical care time spent seeing and evaluating the patient, determining care plan and discussing with consultants. Prognosis remains guarded. 12/25/2017 PLAN Clinically the patient appears stable. He continues to have good urine output without diuretics or albumin. BUN and creatinine remain elevated at 103 and 2.4 respectively. Patient continues to have fairly severe pancytopenia and white count today is 0. Hemoglobin 7.2. Platelets are 5. Fortunately, he has not had any bleeding overnight. By mouth intake is intermittent and we are encouraging increased caloric intake. Unable to place Dobbhoff. We'll start a multivitamin once daily. Due to nightmares, we'll discontinue morphine at patient's request. We'll have when necessary Dilaudid available if needed. Remains on methylprednisolone and breathing treatments for respiratory failure, consider decreasing steroids. Chest x-ray is slowly improving. Dependent on high flow oxygen/BiPAP. Continue G-CSF (initiated 12/19). Neutropenic precautions initiated 12/21. Remains pancytopenic, requires blood products intermittently-give platelets today for platelet count of 5 Uric acid normalized-continue allopurinol. Hypocalcemia without symptoms-give IV calcium again today. Oral calcium initiated. Vitamin D levels pending Regarding hypernatremia and metabolic acidosis, continue D5W with 1 amp of bicarbonate Recheck renal panel later today. Would give intermittent IV Bumex if needed for worsening urine output or hypoxia. Nystatin suspension for management of thrush while neutropenic. Encourage oral nutrition, speech therapy has been consulted. Continue daily CBC and renal panel. Continue sliding scale insulin for hyperglycemia The patient is critically ill. Greater than 45 minutes of critical care time spent seeing and evaluating the patient, determining care plan Prognosis remains guarded. 12/27/2017 PLAN Clinically, the patient appears more edematous today. Will decrease IV fluid rate to 50. Will get Bumex 1 mg IV 1 now and recheck renal panel later today. Patient was given 2 g of calcium gluconate IV this morning. We'll recheck this afternoon. The patient is asymptomatic from hypocalcemia. Vitamin D levels are pending. Oral intake has increased. Encourage supplement shakes for added nutrition. Platelets are better today. He did receive a platelet pack yesterday. No bleeding noted yesterday or today. Patient continues to require 15 L per high flow nasal cannula. Solu-Medrol decreased yesterday. Regarding severe neutropenia, Continue G-CSF (initiated 12/19). Neutropenic precautions initiated 12/21. Anemia is stable Uric acid normalized-continue allopurinol. Hypernatremia is better, decrease IV fluid rate to 50. Considered DC IV fluids if blood pressure is stable Recheck renal panel later today. Continue Levaquin for prophylaxis while patient is neutropenic Nystatin suspension for management of thrush while neutropenic. Continue daily CBC and renal panel. Continue sliding scale insulin for hyperglycemia The patient is critically ill. Greater than 45 minutes of critical care time spent seeing and evaluating the patient, determining care plan Prognosis remains guarded. 12/28/17 Persistent pancytopenia, 1 unit packed red blood cells given today. Potassium supplemented IV. Remains on high flow oxygen, Solu-Medrol decreased further. Sodium level climbing again after attempts to diurese over the weekend. May require resumption of fluids if climb significantly. 12/29/17 Worsening edema, serous drainage from bilateral lower extremities and right upper extremity present today. Sodium, BUN, and creatinine climbing slowly. Albumin down slightly. Discussed options with the patient's -prognosis poor however management of electrolytes and improve nutrition or critical if patient is any chance of survival. Subsequently TPN will be initiated recognizing that the volume management will be problematic. Bumex will be added later today in anticipation of need to take equivalent volume off. Calcium lower-replace IV today. Platelets down-platelet pack to be given. Profound neutropenia persists, continue Neupogen. Continue supportive care; will attempt to discuss goals with patient's when she is available-patient no longer capable of participating in conversations.
--- NOTE | 2017-12-29 16:31 | Pulmonology Progress Note ---
Subjective Principal diagnosis: pneumonia Interval history: Now on BIPAP 10/5, rate 12, Fio2 40% Very somnolent today, not interactive O2sat 100% Not eating well. Discussed with Dr Cortés Exam Vital signs: Temperature 97.7 F 12/29/17 16:00 Pulse Rate 118 H 12/29/17 16:05 Respiratory Rate 13 12/29/17 16:05 Blood Pressure 103/69 12/29/17 16:05 Pulse Oximetry 99 12/29/17 16:05 Inpatient Medications: Generic Name Dose Route Start Last Admin Trade Name Freq PRN Reason Stop Dose Admin Hydrocodone Bitart/Acetaminophen 1 tab 12/07/17 11:21 12/12/17 03:02 Boody 5/325 PO 1 tab QID PRN Administration Pain Albuterol/Ipratropium 3 ml 12/07/17 16:00 12/29/17 12:45 Duoneb AEROSOL 3 ml Q4HR R[facility]ALL Administration Allopurinol 100 mg 12/15/17 18:30 12/29/17 09:01 Zyloprim PO Not Given DAILY R[facility] Bisacodyl 10 mg 12/07/17 12:53 Dulcolax RECTALLY DAILY PRN Constipation Bumetanide 1 mg 12/18/17 14:30 12/20/17 05:50 Bumex 1 Mg/4 Ml Inj. IVP 1 mg Q8H R[facility]ALL Administration Calamine/Phenol 1 applic 12/27/17 08:40 12/27/17 15:44 Risamine Oint TP 1 applic PRN PRN Administration Calcium/Vitamin D 1 tab 12/26/17 09:00 12/29/17 09:01 Caltrate + D PO Not Given BID R[facility]ALL Fluticasone Propionate 1 spray 12/07/17 11:25 Flonase EA NOSTRIL DAILY PRN PRN orders Hydromorphone HCl 0.5 mg 12/25/17 08:47 12/29/17 11:18 Dilaudid IVP 0.5 mg Q3H PRN Administration Pain Cefepime HCl 1 gm/ Sodium 50 mls @ 200 mls/hr 12/29/17 20:00 Chloride IV Q12H [facility] Potassium Acetate 40 meq/ 2,057.8386 mls @ 82 mls/hr 12/29/17 16:00 12/29/17 15:28 Magnesium Sulfate 8 meq/ IV 82 mls/hr Calcium Gluconate 10 meq/ .Q24H R[facility]ALL Administration Potassium Phosphate 10 mmol/ Protocol Multivitamins/Minerals 10 ml/ Chromium/Copper/Manganese/Zinc 1 ml/ Amino Acids Fat Emulsion Intravenous 250 mls @ 21 mls/hr 12/29/17 16:00 12/29/17 15:33 Intralipid 20% IV 21 mls/hr 1600 RANDALL Administration Insulin Aspart 2 - 8 unit 12/24/17 10:27 12/29/17 08:47 Novolog SQ 2 unit SS PRN Administration Hyperglycemia Protocol Lactulose 10 gm 12/22/17 10:39 12/26/17 20:04 Lactulose PO 10 gm DAILY PRN Administration Constipation Lorazepam 0.25 mg 12/07/17 12:48 12/29/17 10:49 Ativan Inj IVP 0.25 mg Q4H PRN Administration Air hunger/Anxiety Methylprednisolone Sodium Succinate 80 mg 12/28/17 21:00 12/29/17 09:02 Solu-Medrol IVP Not Given Q12HR [facility] Multivitamins/Minerals 1 tab 12/25/17 09:00 12/29/17 09:02 Therapeutic - M PO Not Given DAILY [facility] Nicotine 7 mg 12/27/17 09:00 12/29/17 09:02 Nicoderm TD Not Given DAILY [facility] Nicotine 1 removal 12/29/17 09:00 12/29/17 09:04 Nicotine Patch Removal TD 1 removal DAILY [facility] Administration Nystatin 5 ml 12/20/17 13:00 12/29/17 13:29 Mycostatin PO 12/30/17 12:59 Not Given QID [facility] Oxymetazoline HCl 2 spray 12/20/17 11:00 12/20/17 13:25 Afrin Nasal [place] EA NOSTRIL 2 spray BID PRN Administration Bleeding Pantoprazole Sodium 40 mg 12/17/17 15:30 12/29/17 09:04 Protonix Iv IVP Not Given DAILY [facility] Pharmacy Profile Note 5 ml 12/14/17 11:19 12/28/17 11:26 Lidocaine/Maalox/Benadryl Soln PO 5 ml Q4H PRN Administration Mouth pain Polyethylene Glycol 17 gm 12/09/17 11:00 12/27/17 09:45 Miralax PO 17 gm DAILY R[facility]ALL Administration Sodium Chloride 2 spray 12/08/17 10:15 12/29/17 10:22 Deep Sea Nasal Moisturizing [place] EA NOSTRIL 2 spray QID R[facility]ALL Administration Sodium Chloride 500 ml 12/15/17 16:40 12/24/17 20:04 Normal Saline IV 500 ml PRN PRN Administration Sodium Chloride 10 - 80 ml 12/15/17 16:40 12/27/17 19:50 Iv Flush IV 30 ml PRN PRN Administration Flushing Tbo-Filgrastim 480 mcg 12/19/17 19:00 12/28/17 18:25 Granix SQ 480 mcg Q24H R[facility]ALL Administration Discontinued Medications Generic Name Dose Route Start Last Admin Trade Name Freq PRN Reason Stop Dose Admin Acetaminophen 650 mg 12/11/17 10:30 12/11/17 20:30 Tylenol PO 12/11/17 10:31 325 mg O ONE Administration Albumin Human 25 g 12/17/17 15:07 12/17/17 16:01 Albumin Human IV 12/17/17 15:08 25 g Q8H ONE Administration Albumin Human 25 g 12/18/17 12:00 Albumin Human IV Q8H [facility] Albuterol/Ipratropium 3 ml 12/07/17 11:00 12/07/17 16:44 Duoneb AEROSOL Not Given RTQID [facility] Allopurinol 300 mg 12/12/17 13:45 12/17/17 08:56 Zyloprim PO Not Given DAILY [facility] Alteplase, Recombinant 2 mg 12/21/17 04:32 12/21/17 04:59 Cathflo Activase IV 12/21/17 04:33 2 mg O ONE Administration Alteplase, Recombinant 2 mg 12/27/17 23:41 12/27/17 23:51 Cathflo Activase IV 12/27/17 23:42 2 mg O ONE Administration Amino Acids/Electrolytes/Dextrose 1 each 12/29/17 12:32 Pharmacy Consult - Tpn 12/29/17 12:33 O ONE Benzonatate 100 mg 12/07/17 12:48 Tessalon Perles PO TID PRN Cough Bumetanide 1 mg 12/19/17 19:00 12/19/17 19:10 Bumex 1 Mg/4 Ml Inj. IVP 12/19/17 19:01 1 mg O ONE Administration Bumetanide 1 mg 12/26/17 08:01 12/26/17 08:56 Bumex 1 Mg/4 Ml Inj. IVP 12/26/17 08:02 1 mg O ONE Administration Bumetanide 1 mg 12/26/17 15:00 12/26/17 14:28 Bumex 1 Mg/4 Ml Inj. IVP 12/26/17 15:01 1 mg O ONE Administration Bumetanide 1 mg 12/27/17 08:30 12/27/17 10:30 Bumex 1 Mg/4 Ml Inj. IVP 12/27/17 08:31 1 mg O ONE Administration Bumetanide 1 mg 12/27/17 18:17 12/27/17 19:46 Bumex 1 Mg/4 Ml Inj. IVP 12/27/17 18:18 1 mg O ONE Administration Calcium Carbonate 1,000 mg 12/23/17 12:00 12/27/17 11:05 Tums PO Not Given WM R[facility]ALL Clotrimazole 10 mg 12/09/17 12:00 12/20/17 10:19 Mycelex Pj MM Not Given 5XD [facility] Diphenhydramine HCl 50 mg 12/09/17 10:36 12/09/17 12:51 Benadryl PO 12/09/17 10:37 50 mg ONCE ONE Administration Diphenhydramine HCl 25 mg 12/11/17 10:29 12/11/17 20:30 Benadryl PO 12/11/17 10:30 25 mg ONCE ONE Administration Diphenhydramine HCl 50 mg 12/16/17 14:00 12/22/17 15:07 Benadryl IVP 50 mg PRN PRN Administration For reaction to chemo Diphenhydramine HCl 50 mg 12/21/17 08:38 12/21/17 18:16 Benadryl PO 12/21/17 08:39 Not Given ONCE ONE Diphenhydramine HCl 50 mg 12/22/17 12:30 12/22/17 15:05 Benadryl PO 12/22/17 12:31 Not Given ONCE ONE Furosemide 20 mg 12/11/17 10:29 12/11/17 23:59 Lasix IVP 12/11/17 10:30 20 mg O ONE Administration Furosemide 20 mg 12/12/17 14:06 12/12/17 14:47 Lasix IVP 12/12/17 14:07 20 mg ONCE ONE Administration Furosemide 20 mg 12/13/17 09:29 12/13/17 11:51 Lasix IVP 12/13/17 09:30 20 mg ONCE ONE Administration Furosemide 40 mg 12/14/17 11:19 12/14/17 12:14 Lasix IVP 12/14/17 11:20 40 mg O ONE Administration Furosemide 40 mg 12/15/17 09:29 12/15/17 11:44 Lasix IVP 12/15/17 09:30 40 mg O ONE Administration Furosemide 40 mg 12/15/17 17:41 12/15/17 18:32 Lasix IVP 12/15/17 17:42 40 mg O ONE Administration Furosemide 40 mg 12/16/17 15:13 12/16/17 15:18 Lasix IVP 12/16/17 15:14 40 mg O ONE Administration Furosemide 20 mg 12/17/17 11:44 12/17/17 12:27 Lasix IVP 12/17/17 11:45 20 mg ONCE ONE Administration Furosemide 20 mg 12/17/17 16:00 12/17/17 15:35 Lasix IVP 12/17/17 16:01 20 mg Q8H ONE Administration Furosemide 20 mg 12/21/17 08:38 12/21/17 16:07 Lasix IVP 12/21/17 08:39 20 mg O ONE Administration Hydrocortisone Sodium Succinate 100 mg 12/16/17 14:00 Solu-Cortef IVP PRN PRN For reaction to chemo Cefepime HCl 1 gm/ Sodium 100 mls @ 200 mls/hr 12/07/17 08:43 12/07/17 09:33 Chloride IV 12/07/17 09:12 Infused O ONE Infusion Sodium Chloride 1,000 mls @ 1,000 mls/hr 12/07/17 08:43 12/07/17 10:08 Normal Saline IV 12/07/17 09:42 Infused .Q1H ONE Infusion Sodium Chloride 1,000 mls @ 999.9 mls/hr 12/07/17 09:13 12/07/17 11:38 Normal Saline IV 12/07/17 10:12 Infused .Q1H ONE Infusion Cefepime HCl 1 gm/ Sodium 50 mls @ 100 mls/hr 12/07/17 16:00 12/12/17 00:59 Chloride IV Not Given Q6H [facility] Levofloxacin/Dextrose 750 mg in 150 mls @ 100 mls/hr 12/07/17 11:21 12/17/17 13:13 Levaquin Premix IV Infused Q24H [facility] Infusion Sodium Chloride 1,000 mls @ 125 mls/hr 12/07/17 11:21 12/08/17 10:31 Normal Saline IV Infused .Q8H [facility] Infusion Vancomycin HCl 1,250 mg/ 250 mls @ 200 mls/hr 12/08/17 02:00 12/09/17 18:58 Sodium Chloride IV Not Given Q12H [facility] Vancomycin HCl 1,750 mg/ 500 mls @ 250 mls/hr 12/07/17 14:00 12/07/17 15:00 Sodium Chloride IV 12/07/17 14:01 Infused O ONE Infusion Sodium Chloride 500 mls @ 500 mls/hr 12/08/17 03:40 12/08/17 03:40 Normal Saline IV 12/08/17 04:39 Not Given .Q1H ONE Sodium Chloride 500 mls @ 500 mls/hr 12/08/17 05:30 12/08/17 05:17 Normal Saline IV 12/08/17 06:30 Not Given .Q1H [facility] Potassium Chloride 20 meq/ 1,014.5455 mls @ 75 mls/hr 12/08/17 09:45 13:00 Potassium Phosphate 20 meq/ IV 0 mls/hr Sodium Chloride .[id number] [facility] Infusion Potassium Chloride 20 meq/ 1,014.5455 mls @ 50 mls/hr 12/09/17 11:00 12:05 Potassium Phosphate 20 meq/ IV Infused Sodium Chloride .[id number] [facility] Infusion Vancomycin HCl 1,750 mg/ 500 mls @ 250 mls/hr 12/09/17 14:00 12/12/17 08:00 Sodium Chloride IV 12/12/17 07:30 Not Given Q12H [facility] Sodium Chloride 1,000 mls @ 500 mls/hr 12/10/17 16:53 12/10/17 19:30 Normal Saline IV 12/10/17 18:52 Infused .Q2H ONE Infusion Sodium Chloride 1,000 mls @ 75 mls/hr 12/11/17 18:00 12/12/17 14:46 Normal Saline IV Infused .[id number] [facility] Infusion Sodium Chloride 500 mls @ 250 mls/hr 12/11/17 15:45 12/11/17 18:20 Normal Saline IV 12/11/17 17:44 Infused .Q2H [facility] Infusion Vancomycin HCl 1,750 mg/ 500 mls @ 250 mls/hr 12/13/17 08:00 Sodium Chloride IV 12/13/17 08:00 Q24H [facility] Sodium Bicarbonate 100 meq/ 1,100 mls @ 75 mls/hr 12/12/17 14:00 12/13/17 12: 30 Dextrose IV Infused .[id number] [facility] Infusion Vancomycin HCl 1,250 mg/ 250 mls @ 200 mls/hr 12/14/17 08:00 12/14/17 11:00 Sodium Chloride IV Infused Q48H [facility] Infusion Zoledronic Acid 3 mg in 75 mls @ 150 mls/hr 12/13/17 12:00 12/13/17 14:59 Zometa IV 12/13/17 12:29 Infused O ONE Infusion Sodium Bicarbonate 100 meq/ 1,100 mls @ 100 mls/hr 12/13/17 12:30 12/16/17 12 :04 Dextrose IV Not Given .Q11H [facility] Cefepime HCl 1 gm/ Sodium 100 mls @ 200 mls/hr 12/14/17 19:30 12/15/17 01:35 Chloride IV Infused Q6H [facility] Infusion Cefepime HCl 1 gm/ Sodium 50 mls @ 200 mls/hr 12/15/17 09:00 12/17/17 09:25 Chloride IV Infused Q6HR [facility] Infusion Vancomycin HCl 1,000 mg/ 250 mls @ 250 mls/hr 12/15/17 12:00 12/16/17 14:11 Sodium Chloride IV 12/17/17 11:59 Infused Q24H [facility] Infusion Dextrose/Sodium Chloride 1,000 mls @ 75 mls/hr 12/15/17 13:30 12/19/17 14:00 D5-1/2ns IV Infused .[id number] [facility] Infusion Dexamethasone 10 mg/ Sodium 52.5 mls @ 210 mls/hr 12/16/17 14:00 12/16/17 14: 39 Chloride IV 12/16/17 14:14 Infused O ONE Infusion Carboplatin 377 mg/ Dextrose 287.7 mls @ 250 mls/hr 12/16/17 14:30 12/16/17 16:00 IV 12/16/17 15:39 Infused O ONE Infusion Etoposide 100 mg/ Sodium 505 mls @ 125 mls/hr 12/16/17 15:30 12/16/17 20:00 Chloride IV 12/16/17 19:32 Infused O ONE Infusion Dexamethasone 10 mg/ Sodium 52.5 mls @ 150 mls/hr 12/17/17 14:00 12/17/17 14: 42 Chloride IV 12/17/17 14:20 Infused O ONE Infusion Etoposide 100 mg/ Sodium 505 mls @ 125 mls/hr 12/17/17 14:30 12/17/17 19:00 Chloride IV 12/17/17 18:32 Infused O ONE Infusion Vancomycin HCl 1,000 mg/ 250 mls @ 250 mls/hr 12/18/17 00:01 12/21/17 01:28 Sodium Chloride IV 12/21/17 11:00 Infused Q36H [facility] Infusion Cefepime HCl 1 gm/ Sodium 50 mls @ 100 mls/hr 12/17/17 17:00 12/18/17 09:01 Chloride IV 100 mls/hr Q8HR [facility] Administration Levofloxacin/Dextrose 750 mg in 150 mls @ 100 mls/hr 12/19/17 09:00 12/19/17 12:15 Levaquin Premix IV Infused Q48H [facility] Infusion Dexamethasone 10 mg/ Sodium 52.5 mls @ 150 mls/hr 12/18/17 14:00 12/18/17 14: 38 Chloride IV 12/18/17 14:20 Infused O ONE Infusion Etoposide 100 mg/ Sodium 505 mls @ 125 mls/hr 12/18/17 14:30 12/18/17 14:38 Chloride IV 12/18/17 18:32 125 mls/hr O ONE Administration Albumin Human 100 mls @ 50 mls/hr 12/18/17 12:00 12/21/17 05:19 Albumin Human 25 Gm IV Infused Q8H [facility] Infusion Cefepime HCl 1 gm/ Sodium 50 mls @ 100 mls/hr 12/18/17 21:00 12/21/17 09:18 Chloride IV 12/21/17 11:00 Infused Q12H [facility] Infusion Potassium Chloride 40 meq/ 520 mls @ 100 mls/hr 12/19/17 13:00 12/19/17 19:00 Dextrose IV 12/19/17 18:11 100 mls/hr .Q5H12M [facility] Infusion Potassium Chloride 40 meq/ 1,020 mls @ 100 mls/hr 12/21/17 10:00 12/23/17 07: 07 Dextrose IV Infused .[id number] R[facility] Infusion Albumin Human 50 mls @ 50 mls/hr 12/21/17 12:00 12/23/17 05:20 Albumin Human 12.5 Gm IV Infused Q8H [facility] Infusion Rasburicase 3 mg/ Sodium 50 mls @ 100 mls/hr 12/21/17 14:30 12/21/17 19:51 Chloride IV 12/21/17 14:59 Infused O ONE Infusion Dextrose/Sodium Chloride 1,000 mls @ 75 mls/hr 12/22/17 18:45 12/23/17 11:56 D5-1/2ns IV Infused .[id number] [facility] Infusion Dextrose 1,000 mls @ 75 mls/hr 12/23/17 11:15 12/24/17 16:30 Dextrose 5% In Water IV Infused .[id number] [facility] Infusion 100 mls/hr Calcium Gluconate 1,000 mg/ 60 mls @ 200 mls/hr 12/23/17 18:32 12/23/17 19:52 Sodium Chloride IV 12/23/17 18:49 Infused O ONE Infusion Levofloxacin/Dextrose 750 mg in 150 mls @ 100 mls/hr 12/24/17 09:00 12/26/17 11:00 Levaquin Premix IV Infused Q48H [facility] Infusion Calcium Gluconate 1,000 mg/ 60 mls @ 200 mls/hr 12/24/17 16:29 12/24/17 17:18 Sodium Chloride IV 12/24/17 16:46 Infused O ONE Infusion Sodium Bicarbonate 50 meq/ 1,050 mls @ 50 mls/hr 12/24/17 16:30 12/27/17 11: 05 Dextrose IV Not Given .Q21H [facility] Potassium Chloride 10 meq in 100 mls @ 100 mls/hr 12/24/17 16:45 12/24/17 17: 18 Potassium Chloride Premix IV 12/24/17 18:44 Not Given Q1H [facility] Potassium Chloride 10 meq/ 105 mls @ 100 mls/hr 12/24/17 17:30 12/24/17 20:05 Sodium Chloride IV 12/24/17 19:29 Infused Q1H [facility] Infusion Calcium Gluconate 1,000 mg/ 60 mls @ 200 mls/hr 12/24/17 19:13 12/24/17 20:22 Sodium Chloride IV 12/24/17 19:30 Infused O ONE Infusion Calcium Gluconate 1,000 mg/ 60 mls @ 200 mls/hr 12/25/17 08:49 12/27/17 11:06 Sodium Chloride IV 12/25/17 09:06 Infused O ONE Infusion Calcium Gluconate 1,000 mg/ 60 mls @ 200 mls/hr 12/25/17 16:59 12/27/17 11:05 Sodium Chloride IV 12/25/17 17:16 Infused O ONE Infusion Calcium Gluconate 2,000 mg/ 120 mls @ 50 mls/hr 12/26/17 05:03 12/26/17 08:05 Sodium Chloride IV 12/26/17 07:26 Infused O ONE Infusion Albumin Human 12.5 g/ IV 50 mls @ 50 mls/hr 12/26/17 16:10 12/26/17 20:45 Solution IV 12/26/17 17:09 Infused O ONE Infusion Calcium Gluconate 1,000 mg/ 60 mls @ 200 mls/hr 12/26/17 16:58 12/26/17 20:00 Sodium Chloride IV 12/26/17 17:15 Infused O ONE Infusion Cefepime HCl 1 gm/ Sodium 100 mls @ 200 mls/hr 12/27/17 08:15 Chloride IV Q8H [facility] Cefepime HCl 1 gm/ Sodium 50 mls @ 200 mls/hr 12/27/17 08:15 12/29/17 07:59 Chloride IV Infused Q8H [facility] Infusion Calcium Gluconate 1,000 mg/ 60 mls @ 200 mls/hr 12/27/17 08:40 12/27/17 10:00 Sodium Chloride IV 12/27/17 08:57 Infused O ONE Infusion Albumin Human 12.5 g/ IV 50 mls @ 50 mls/hr 12/27/17 18:30 12/28/17 14:27 Solution IV 12/28/17 11:29 Infused Q8H [facility] Infusion Calcium Gluconate 2,000 mg/ 120 mls @ 50 mls/hr 12/27/17 18:18 12/27/17 22:00 Sodium Chloride IV 12/27/17 20:41 Infused O ONE Infusion Potassium Chloride 10 meq in 100 mls @ 100 mls/hr 12/28/17 18:00 12/28/17 23: 30 Potassium Chloride Premix IV 12/28/17 21:59 Infused Q1H [facility] Infusion Insulin Aspart 1 - 5 unit 12/21/17 09:19 12/23/17 23:28 Novolog SQ 2 unit SS PRN Administration Hyperglycemia Protocol Magnesium Hydroxide 30 ml 12/07/17 12:53 Mom PO DAILY PRN Constipation Methylprednisolone Sodium Succinate 125 mg 12/15/17 15:30 12/21/17 08:50 Solu-Medrol IVP 125 mg Q6HR R[facility]ALL Administration Methylprednisolone Sodium Succinate 125 mg 12/16/17 14:00 Solu-Medrol IVP PRN PRN For reaction to chemo Methylprednisolone Sodium Succinate 80 mg 12/21/17 10:24 12/25/17 08:30 Solu-Medrol IVP 80 mg Q6HR [facility] Administration Methylprednisolone Sodium Succinate 80 mg 12/25/17 17:00 12/28/17 08:54 Solu-Medrol IVP 80 mg Q8HR R[facility] Administration Metoclopramide HCl 5 mg 12/17/17 14:30 12/19/17 10:58 Reglan Not Given Q6H [facility] Metoclopramide HCl 10 mg 12/23/17 17:32 12/26/17 15:57 Reglan IVP 10 mg Q6H PRN Administration Metoclopramide HCl 10 mg 12/27/17 10:00 12/28/17 10:00 Reglan IVP 10 mg Q6H R[facility]ALL Administration Metoclopramide HCl 5 mg 12/28/17 16:00 12/29/17 10:22 Reglan IVP 5 mg Q6H RANDLAL Administration Miscellaneous Medication 1 each 12/27/17 08:05 12/27/17 11:05 Pharmacy Consult - Renal Dosing MC 12/27/17 08:06 Not Given O ONE Morphine Sulfate 2 mg 12/07/17 12:47 12/14/17 10:38 Morphine Sulfate Inj IVP 2 mg Q2HR PRN Administration Pain Morphine Sulfate 4 mg 12/14/17 11:20 12/19/17 09:54 Morphine Sulfate Inj IVP 4 mg Q2HR PRN Administration Pain Morphine Sulfate 2 - 4 mg 12/19/17 10:49 12/25/17 03:44 Morphine Sulfate Inj IVP 2 mg Q2HR PRN Administration Pain Nicotine 21 mg 12/07/17 10:45 12/26/17 09:06 Nicoderm TD 21 mg DAILY R[facility]ALL Administration Nicotine 1 removal 12/08/17 09:00 12/26/17 09:05 Nicotine Patch Removal TD 1 removal DAILY [facility] Administration Ondansetron HCl 4 mg 12/07/17 11:21 12/23/17 16:20 Zofran IVP 4 mg Q6H PRN Administration Nausea Palonosetron 0.25 mg 12/16/17 14:00 12/16/17 14:04 Aloxi IV 12/16/17 14:01 0.25 mg O ONE Administration Pharmacy Consult 1 each 12/11/17 11:34 Pharmacy Consult - Fall Risk XX 12/11/17 11:35 ONE TIME ONE Pharmacy Consult 1 each 12/19/17 17:12 Pharmacy Consult - Fall Risk XX 12/19/17 17:13 ONE TIME ONE Pharmacy Consult 1 each 12/29/17 11:30 Pharmacy Consult - Fall Risk XX 12/29/17 11:31 ONE TIME ONE Potassium Chloride 20 meq 12/12/17 13:58 12/12/17 14:14 K-Dur 20 Meq Tablet PO 12/12/17 13:59 20 meq O ONE Administration Potassium Chloride 20 meq 12/13/17 12:30 12/19/17 10:58 K-Dur 20 Meq Tablet PO Not Given BIDWM [facility] Potassium Chloride 40 meq 12/26/17 16:09 12/26/17 16:37 K-Dur 20 Meq Tablet PO 12/26/17 16:10 40 meq O ONE Administration Potassium Chloride 20 meq 12/27/17 08:13 12/27/17 10:31 K-Dur 20 Meq Tablet PO 12/27/17 08:14 20 meq O ONE Administration Potassium Chloride 20 meq 12/27/17 12:00 12/27/17 11:53 K-Dur 20 Meq Tablet PO 12/27/17 12:01 20 meq O ONE Administration Promethazine HCl/Codeine 5 ml 12/07/17 12:49 Phenergan + Codeine PO Q6HR PRN Cough Rasburicase 3 mg 12/21/17 13:35 12/21/17 18:17 Elitek IV 12/21/17 13:36 Not Given O ONE Sodium Chloride 10 - 80 ml 12/07/17 08:43 12/20/17 15:18 Iv Flush IVF 40 ml PRN PRN Administration Flushing Sodium Chloride 500 ml 12/07/17 11:24 12/10/17 16:47 Normal Saline IV 500 ml PRN PRN Administration Sodium Chloride 500 ml 12/09/17 10:36 12/11/17 08:14 Normal Saline IV 500 ml PRN PRN Administration Sodium Chloride 500 ml 12/10/17 16:57 Normal Saline IV PRN PRN Sodium Chloride 500 ml 12/11/17 10:29 Normal Saline IV PRN PRN Sodium Chloride 500 ml 12/13/17 09:27 Normal Saline IV PRN PRN Sodium Chloride 500 ml 12/13/17 10:04 Normal Saline IV PRN PRN Sodium Chloride 500 ml 12/15/17 09:29 Normal Saline IV PRN PRN Sodium Chloride 500 ml 12/21/17 08:38 Normal Saline IV PRN PRN Sodium Chloride 500 ml 12/22/17 12:30 Normal Saline IV PRN PRN Sodium Chloride 500 ml 12/23/17 09:30 Normal Saline IV PRN PRN Sodium Chloride 500 ml 12/25/17 06:53 Normal Saline IV PRN PRN Sodium Chloride 500 ml 12/27/17 08:29 Normal Saline IV PRN PRN Sodium Chloride 500 ml 12/28/17 04:57 Normal Saline IV PRN PRN Spironolactone 12.5 mg 12/13/17 09:30 12/13/17 11:51 Aldactone PO 12/13/17 09:31 12.5 mg ONE TIME ONE Administration Vancomycin HCl 1 each 12/07/17 11:09 Pharmacy Consult - Vancomycin 12/07/17 11:10 O ONE Vancomycin HCl 1 each 12/07/17 11:21 Pharmacy Consult - Vancomycin 12/07/17 11:22 O ONE - Constitutional moderate distress, thin - Routine HEENT Exam Head: Present: normocephalic, atraumatic - Routine Neck Exam Present: supple. Absent: JVD - Routine Respiratory Exam Present: patient mechanically ventilated, prolonged expiratory phase - Routine Cardiovascular Exam Present: RRR - Routine Abdominal Exam Present: soft. Absent: guarding - Routine Extremities Exam Present: no edema. Absent: cyanosis - Urinary Catheter Management Urethral Cath placed during this visit: yes Urethral indwelling: Yes Insertion date: 12/07/17 Insertion time: 19:45 Results - Laboratory Findings Laboratory: Laboratory Results - last 48 hr 12/24/17 12/27/17 12/27/17 04:02 08:49 15:17 WBC RBC Hgb Hct MCV MCH MCHC RDW Std Deviation Plt Count MPV Neutrophils % (Manual) Lymphocytes % (Manual) Monocytes % (Manual) Lymphocytes # (Manual) Monocytes # (Manual) Poikilocytosis Anisocytosis Tear Drop Cells Ovalocytes Helmet Cells Timothy Cells Schistocytes RBC Morph Comment Turbidity Sodium Potassium Chloride Carbon Dioxide Anion Gap BUN Creatinine GFR Calculation BUN/Creatinine Ratio Glucose Glucometer Calculated Osmolality Calcium Phosphorus Icterus Index Albumin Vit D 1,25-Dihydroxy 35 Specimen Hemolysis Blood Type O Positive Antibody Screen Negative Crossmatch (AHG) See Detail Blood Product Request 1 unit ppp issued 12/27/17 12/27/17 12/27/17 17:15 17:15 17:15 WBC RBC Hgb 7.4 L D Hct MCV MCH MCHC RDW Std Deviation Plt Count 27 L* D MPV Neutrophils % (Manual) Lymphocytes % (Manual) Monocytes % (Manual) Lymphocytes # (Manual) Monocytes # (Manual) Poikilocytosis Anisocytosis Tear Drop Cells Ovalocytes Helmet Cells Timothy Cells Schistocytes RBC Morph Comment Turbidity < 20 Sodium 148 H Potassium 3.4 L Chloride 110 H Carbon Dioxide 24 Anion Gap 14 BUN 112.0 H* Creatinine 2.3 H GFR Calculation 30 BUN/Creatinine Ratio 49 H Glucose 162 H Glucometer Calculated Osmolality 324 H Calcium 6.0 L Phosphorus 4.7 H Icterus Index < 2 Albumin 2.7 L Vit D 1,25-Dihydroxy Specimen Hemolysis < 15 Blood Type Antibody Screen Crossmatch ([facility]) Blood Product Request 12/27/17 12/28/17 12/28/17 18:14 01:45 03:46 WBC 0.0 L* RBC 2.28 L Hgb 6.8 L Hct 20.1 L MCV 88.2 MCH 29.8 MCHC 33.8 RDW Std Deviation 56.7 H Plt Count 11 L* D MPV 9.2 L Neutrophils % (Manual) Not performed Lymphocytes % (Manual) 90.0 H Monocytes % (Manual) 10.0 H Lymphocytes # (Manual) 0.0 L Monocytes # (Manual) 0.0 Poikilocytosis 2+ Anisocytosis 2+ Tear Drop Cells 1+ Ovalocytes 1+ Helmet Cells 1+ Timothy Cells 1+ Schistocytes 1+ RBC Morph Comment Abnormal Turbidity Sodium Potassium Chloride Carbon Dioxide Anion Gap BUN Creatinine GFR Calculation BUN/Creatinine Ratio Glucose Glucometer 180 222 Calculated Osmolality Calcium Phosphorus Icterus Index Albumin Vit D 1,25-Dihydroxy Specimen Hemolysis Blood Type Antibody Screen Crossmatch ([facility]) Blood Product Request 12/28/17 12/28/17 12/28/17 03:46 06:02 09:37 WBC RBC Hgb Hct MCV MCH MCHC RDW Std Deviation Plt Count MPV Neutrophils % (Manual) Lymphocytes % (Manual) Monocytes % (Manual) Lymphocytes # (Manual) Monocytes # (Manual) Poikilocytosis Anisocytosis Tear Drop Cells Ovalocytes Helmet Cells Timothy Cells Schistocytes RBC Morph Comment Turbidity < 20 Sodium 152 H Potassium 3.3 L Chloride 111 H Carbon Dioxide 24 Anion Gap 17 H BUN 114.0 H* Creatinine 2.4 H GFR Calculation 28 BUN/Creatinine Ratio 48 H Glucose 163 H Glucometer 179 Calculated Osmolality 332 H Calcium 6.3 L Phosphorus 4.7 H Icterus Index < 2 Albumin 2.8 L Vit D 1,25-Dihydroxy Specimen Hemolysis < 15 Blood Type Antibody Screen Crossmatch ([facility]) Blood Product Request 1 unit pc issued 12/28/17 12/28/17 12/28/17 13:54 14:21 19:27 WBC RBC Hgb 8.4 L D Hct MCV MCH MCHC RDW Std Deviation Plt Count MPV Neutrophils % (Manual) Lymphocytes % (Manual) Monocytes % (Manual) Lymphocytes # (Manual) Monocytes # (Manual) Poikilocytosis Anisocytosis Tear Drop Cells Ovalocytes Helmet Cells Dexter Cells Schistocytes RBC Morph Comment Turbidity Sodium Potassium Chloride Carbon Dioxide Anion Gap BUN Creatinine GFR Calculation BUN/Creatinine Ratio Glucose Glucometer 215 242 Calculated Osmolality Calcium Phosphorus Icterus Index Albumin Vit D 1,25-Dihydroxy Specimen Hemolysis Blood Type Antibody Screen Crossmatch ([facility]) Blood Product Request 12/29/17 12/29/17 12/29/17 01:00 04:06 04:06 WBC 0.0 L* RBC 2.78 L Hgb 8.2 L Hct 23.8 L D MCV 85.6 MCH 29.5 MCHC 34.5 RDW Std Deviation 56.5 H Plt Count 5 L* D MPV Not performed Neutrophils % (Manual) Not performed Lymphocytes % (Manual) 100.0 H Monocytes % (Manual) Lymphocytes # (Manual) 0.0 L Monocytes # (Manual) Poikilocytosis 1+ Anisocytosis 1+ Tear Drop Cells 1+ Ovalocytes Helmet Cells 1+ Timothy Cells Schistocytes 1+ RBC Morph Comment Abnormal Turbidity < 20 Sodium 155 H Potassium 3.8 Chloride 116 H Carbon Dioxide 24 Anion Gap 15 BUN 118.0 H* Creatinine 2.5 H GFR Calculation 27 BUN/Creatinine Ratio 47 H Glucose 126 H Glucometer 199 Calculated Osmolality 337 H Calcium 6.1 L Phosphorus 4.4 Icterus Index < 2 Albumin 2.7 L Vit D 1,25-Dihydroxy Specimen Hemolysis < 15 Blood Type Antibody Screen Crossmatch (AHG) Blood Product Request 12/29/17 12/29/17 12/29/17 07:34 11:37 13:19 WBC RBC Hgb Hct MCV MCH MCHC RDW Std Deviation Plt Count MPV Neutrophils % (Manual) Lymphocytes % (Manual) Monocytes % (Manual) Lymphocytes # (Manual) Monocytes # (Manual) Poikilocytosis Anisocytosis Tear Drop Cells Ovalocytes Helmet Cells Dexter Cells Schistocytes RBC Morph Comment Turbidity Sodium Potassium Chloride Carbon Dioxide Anion Gap BUN Creatinine GFR Calculation BUN/Creatinine Ratio Glucose Glucometer 174 149 Calculated Osmolality Calcium Phosphorus Icterus Index Albumin Vit D 1,25-Dihydroxy Specimen Hemolysis Blood Type Antibody Screen Crossmatch (AHG) Blood Product Request 1 unit ppp issued Assessment and Plan (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 overall clinically stable continue supportive respiratory care. He is back on BIPAP which is an adverse change for him. Repeat ABG on BIPAP. 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
[2017-12-29] MEDS: FentaNYL 100 MCG/2 ML INJECTION IVP PRN (19:11)
[2017-12-29] MEDS: TBO-FILGRASTIM 480mcg/0.8ml INJECTION SQ SCH (21:14)
[2017-12-30] MEDS: ALBUTEROL/IPRATROPIUM 2.5mg-0.5mg/3ml NEB AEROSOL SCH ×4 (00:32→07:39)
[2017-12-30] MEDS: INSULIN ASPART 100unit/ml INJECTION SQ PRN ×2 (02:17→07:51)
[2017-12-30] MEDS: FentaNYL 100 MCG/2 ML INJECTION IVP PRN ×6 (02:23→11:42)
[2017-12-30] MEDS: METHYLPREDNISOLONE SOD SUCC 125mg/2ml INJECTION IVP SCH ×2 (07:54→11:59)
[2017-12-30] MEDS: PANTOPRAZOLE 40 MG INJECTION IVP SCH ×2 (07:54→11:59)
[2017-12-30] MEDS: CEFEPIME 1 GM in NS 50 ML IV SCH (07:55)
--- NOTE | 2017-12-30 09:14 | Pulmonology Progress Note ---
Subjective Principal diagnosis: pneumonia Interval history: Now on BIPAP 10/, rate 12, Fio2 40%. Very somnolent today, not interactive. O2 sats 90%. Family at bedside, states that pt. is to come off BiPAP at 10am and will place him on NC and they want him comfortable. All questions and concerns addressed, notified nursing staff to have [employer] come by. Exam Vital signs: Temperature 97.8 F 12/30/17 04:00 Pulse Rate 132 H 12/30/17 06:00 Respiratory Rate 24 12/30/17 07:39 Blood Pressure 108/71 12/30/17 06:00 Pulse Oximetry 91 12/30/17 07:39 Inpatient Medications: Generic Name Dose Route Start Last Admin Trade Name Freq PRN Reason Stop Dose Admin Hydrocodone Bitart/Acetaminophen 1 tab 12/07/17 11:21 12/12/17 03:02 [place] 5/325 PO 1 tab QID PRN Administration Pain Albuterol/Ipratropium 3 ml 12/07/17 16:00 12/30/17 07:39 Duoneb AEROSOL 3 ml Q4HR RANDALL Administration Allopurinol 100 mg 12/15/17 18:30 12/29/17 09:01 Zyloprim PO Not Given DAILY RANDALL Bisacodyl 10 mg 12/07/17 12:53 Dulcolax RECTALLY DAILY PRN Constipation Bumetanide 1 mg 12/18/17 14:30 12/30/17 05:50 Bumex 1 Mg/4 Ml Inj. IVP 1 mg Q8H RANDALL Administration Calamine/Phenol 1 applic 12/27/17 08:40 12/27/17 15:44 Risamine Oint TP 1 applic PRN PRN Administration Calcium/Vitamin D 1 tab 12/26/17 09:00 12/29/17 22:27 Caltrate + D PO Not Given BID RANDALL Fentanyl 50 mcg 12/29/17 18:25 12/30/17 07:54 Fentanyl IVP 50 mcg Q1HR PRN Administration Fluticasone Propionate 1 spray 12/07/17 11:25 Flonase EA NOSTRIL DAILY PRN PRN orders Hydromorphone HCl 0.5 mg 12/25/17 08:47 12/29/17 16:26 Dilaudid IVP 0.5 mg Q3H PRN Administration Pain Cefepime HCl 1 gm/ Sodium 50 mls @ 200 mls/hr 12/29/17 20:00 12/30/17 07:55 Chloride IV 200 mls/hr Q12H RANDALL Administration Potassium Acetate 40 meq/ 2,057.8386 mls @ 82 mls/hr 12/29/17 16:00 12/30/17 06:00 Magnesium Sulfate 8 meq/ IV 82 mls/hr Calcium Gluconate 10 meq/ .Q24H RANDALL Infusion Potassium Phosphate 10 mmol/ Protocol Multivitamins/Minerals 10 ml/ Chromium/Copper/Manganese/Zinc 1 ml/ Amino Acids Fat Emulsion Intravenous 250 mls @ 21 mls/hr 12/29/17 16:00 12/30/17 03:00 Intralipid 20% IV Infused 1600 RANDALL Infusion Insulin Aspart 2 - 8 unit 12/24/17 10:27 12/30/17 07:51 Novolog SQ 5 unit SS PRN Administration Hyperglycemia Protocol Lactulose 10 gm 12/22/17 10:39 12/26/17 20:04 Lactulose PO 10 gm DAILY PRN Administration Constipation Lorazepam 0.25 mg 12/07/17 12:48 12/30/17 05:50 Ativan Inj IVP 0.25 mg Q4H PRN Administration Air hunger/Anxiety Methylprednisolone Sodium Succinate 80 mg 12/28/17 21:00 12/30/17 07:54 Solu-Medrol IVP 80 mg Q12HR RANDALL Administration Multivitamins/Minerals 1 tab 12/25/17 09:00 12/29/17 09:02 Therapeutic - M PO Not Given DAILY RANDALL Nicotine 7 mg 12/27/17 09:00 12/29/17 09:02 Nicoderm TD Not Given DAILY RANDALL Nicotine 1 removal 12/29/17 09:00 12/29/17 09:04 Nicotine Patch Removal TD 1 removal DAILY RANDALL Administration Nystatin 5 ml 12/20/17 13:00 12/29/17 22:26 Mycostatin PO 12/30/17 12:59 Not Given QID RANDALL Oxymetazoline HCl 2 spray 12/20/17 11:00 12/20/17 13:25 Afrin Nasal Schneider EA NOSTRIL 2 spray BID PRN Administration Bleeding Pantoprazole Sodium 40 mg 12/17/17 15:30 12/30/17 07:54 Protonix Iv IVP 40 mg DAILY RANDALL Administration Pharmacy Profile Note 5 ml 12/14/17 11:19 12/28/17 11:26 Lidocaine/Maalox/Benadryl Soln PO 5 ml Q4H PRN Administration Mouth pain Polyethylene Glycol 17 gm 12/09/17 11:00 12/27/17 09:45 Miralax PO 17 gm DAILY RANDALL Administration Sodium Chloride 2 spray 12/08/17 10:15 12/29/17 21:15 [place] Nasal Moisturizing Schneider EA NOSTRIL 2 spray QID RANDALL Administration Sodium Chloride 500 ml 12/15/17 16:40 12/24/17 20:04 Normal Saline IV 500 ml PRN PRN Administration Sodium Chloride 10 - 80 ml 12/15/17 16:40 12/27/17 19:50 Iv Flush IV 30 ml PRN PRN Administration Flushing Tbo-Filgrastim 480 mcg 12/19/17 19:00 12/29/17 21:14 Granix SQ 480 mcg Q24H RANDALL Administration Discontinued Medications Generic Name Dose Route Start Last Admin Trade Name Freq PRN Reason Stop Dose Admin Acetaminophen 650 mg 12/11/17 10:30 12/11/17 20:30 Tylenol PO 12/11/17 10:31 325 mg O ONE Administration Albumin Human 25 g 12/17/17 15:07 12/17/17 16:01 Albumin Human IV 12/17/17 15:08 25 g Q8H ONE Administration Albumin Human 25 g 12/18/17 12:00 Albumin Human IV Q8H [facility] Albuterol/Ipratropium 3 ml 12/07/17 11:00 12/07/17 16:44 Duoneb AEROSOL Not Given RTQID [facility] Allopurinol 300 mg 12/12/17 13:45 12/17/17 08:56 Zyloprim PO Not Given DAILY [facility] Alteplase, Recombinant 2 mg 12/21/17 04:32 12/21/17 04:59 Cathflo Activase IV 12/21/17 04:33 2 mg O ONE Administration Alteplase, Recombinant 2 mg 12/27/17 23:41 12/27/17 23:51 Cathflo Activase IV 12/27/17 23:42 2 mg O ONE Administration Amino Acids/Electrolytes/Dextrose 1 each 12/29/17 12:32 Pharmacy Consult - Tpn 12/29/17 12:33 O ONE Benzonatate 100 mg 12/07/17 12:48 Tessalon Perles PO TID PRN Cough Bumetanide 1 mg 12/19/17 19:00 12/19/17 19:10 Bumex 1 Mg/4 Ml Inj. IVP 12/19/17 19:01 1 mg O ONE Administration Bumetanide 1 mg 12/26/17 08:01 12/26/17 08:56 Bumex 1 Mg/4 Ml Inj. IVP 12/26/17 08:02 1 mg O ONE Administration Bumetanide 1 mg 12/26/17 15:00 12/26/17 14:28 Bumex 1 Mg/4 Ml Inj. IVP 12/26/17 15:01 1 mg O ONE Administration Bumetanide 1 mg 12/27/17 08:30 12/27/17 10:30 Bumex 1 Mg/4 Ml Inj. IVP 12/27/17 08:31 1 mg O ONE Administration Bumetanide 1 mg 12/27/17 18:17 12/27/17 19:46 Bumex 1 Mg/4 Ml Inj. IVP 12/27/17 18:18 1 mg O ONE Administration Calcium Carbonate 1,000 mg 12/23/17 12:00 12/27/17 11:05 Tums PO Not Given WM RANDALL Clotrimazole 10 mg 12/09/17 12:00 12/20/17 10:19 Mycelex Pj MM Not Given 5XD RANADLL Diphenhydramine HCl 50 mg 12/09/17 10:36 12/09/17 12:51 Benadryl PO 12/09/17 10:37 50 mg ONCE ONE Administration Diphenhydramine HCl 25 mg 12/11/17 10:29 12/11/17 20:30 Benadryl PO 12/11/17 10:30 25 mg ONCE ONE Administration Diphenhydramine HCl 50 mg 12/16/17 14:00 12/22/17 15:07 Benadryl IVP 50 mg PRN PRN Administration For reaction to chemo Diphenhydramine HCl 50 mg 12/21/17 08:38 12/21/17 18:16 Benadryl PO 12/21/17 08:39 Not Given ONCE ONE Diphenhydramine HCl 50 mg 12/22/17 12:30 12/22/17 15:05 Benadryl PO 12/22/17 12:31 Not Given ONCE ONE Furosemide 20 mg 12/11/17 10:29 12/11/17 23:59 Lasix IVP 12/11/17 10:30 20 mg O ONE Administration Furosemide 20 mg 12/12/17 14:06 12/12/17 14:47 Lasix IVP 12/12/17 14:07 20 mg ONCE ONE Administration Furosemide 20 mg 12/13/17 09:29 12/13/17 11:51 Lasix IVP 12/13/17 09:30 20 mg ONCE ONE Administration Furosemide 40 mg 12/14/17 11:19 12/14/17 12:14 Lasix IVP 12/14/17 11:20 40 mg O ONE Administration Furosemide 40 mg 12/15/17 09:29 12/15/17 11:44 Lasix IVP 12/15/17 09:30 40 mg O ONE Administration Furosemide 40 mg 12/15/17 17:41 12/15/17 18:32 Lasix IVP 12/15/17 17:42 40 mg O ONE Administration Furosemide 40 mg 12/16/17 15:13 12/16/17 15:18 Lasix IVP 12/16/17 15:14 40 mg O ONE Administration Furosemide 20 mg 12/17/17 11:44 12/17/17 12:27 Lasix IVP 12/17/17 11:45 20 mg ONCE ONE Administration Furosemide 20 mg 12/17/17 16:00 12/17/17 15:35 Lasix IVP 12/17/17 16:01 20 mg Q8H ONE Administration Furosemide 20 mg 12/21/17 08:38 12/21/17 16:07 Lasix IVP 12/21/17 08:39 20 mg O ONE Administration Hydrocortisone Sodium Succinate 100 mg 12/16/17 14:00 Solu-Cortef IVP PRN PRN For reaction to chemo Cefepime HCl 1 gm/ Sodium 100 mls @ 200 mls/hr 12/07/17 08:43 12/07/17 09:33 Chloride IV 12/07/17 09:12 Infused O ONE Infusion Sodium Chloride 1,000 mls @ 1,000 mls/hr 12/07/17 08:43 12/07/17 10:08 Normal Saline IV 12/07/17 09:42 Infused .Q1H ONE Infusion Sodium Chloride 1,000 mls @ 999.9 mls/hr 12/07/17 09:13 12/07/17 11:38 Normal Saline IV 12/07/17 10:12 Infused .Q1H ONE Infusion Cefepime HCl 1 gm/ Sodium 50 mls @ 100 mls/hr 12/07/17 16:00 12/12/17 00:59 Chloride IV Not Given Q6H [facility] Levofloxacin/Dextrose 750 mg in 150 mls @ 100 mls/hr 12/07/17 11:21 12/17/17 13:13 Levaquin Premix IV Infused Q24H [facility]ALL Infusion Sodium Chloride 1,000 mls @ 125 mls/hr 12/07/17 11:21 12/08/17 10:31 Normal Saline IV Infused .Q8H RANDALL Infusion Vancomycin HCl 1,250 mg/ 250 mls @ 200 mls/hr 12/08/17 02:00 12/09/17 18:58 Sodium Chloride IV Not Given Q12H RANDALL Vancomycin HCl 1,750 mg/ 500 mls @ 250 mls/hr 12/07/17 14:00 12/07/17 15:00 Sodium Chloride IV 12/07/17 14:01 Infused O ONE Infusion Sodium Chloride 500 mls @ 500 mls/hr 12/08/17 03:40 12/08/17 03:40 Normal Saline IV 12/08/17 04:39 Not Given .Q1H ONE Sodium Chloride 500 mls @ 500 mls/hr 12/08/17 05:30 12/08/17 05:17 Normal Saline IV 12/08/17 06:30 Not Given .Q1H R[facility]ALL Potassium Chloride 20 meq/ 1,014.5455 mls @ 75 mls/hr 12/08/17 09:45 13:00 Potassium Phosphate 20 meq/ IV 0 mls/hr Sodium Chloride .[id number] RANDALL Infusion Potassium Chloride 20 meq/ 1,014.5455 mls @ 50 mls/hr 12/09/17 11:00 12:05 Potassium Phosphate 20 meq/ IV Infused Sodium Chloride .[id number] R[facility]ALL Infusion Vancomycin HCl 1,750 mg/ 500 mls @ 250 mls/hr 12/09/17 14:00 12/12/17 08:00 Sodium Chloride IV 12/12/17 07:30 Not Given Q12H RANDALL Sodium Chloride 1,000 mls @ 500 mls/hr 12/10/17 16:53 12/10/17 19:30 Normal Saline IV 12/10/17 18:52 Infused .Q2H ONE Infusion Sodium Chloride 1,000 mls @ 75 mls/hr 12/11/17 18:00 12/12/17 14:46 Normal Saline IV Infused .[id number] RANDALL Infusion Sodium Chloride 500 mls @ 250 mls/hr 12/11/17 15:45 12/11/17 18:20 Normal Saline IV 12/11/17 17:44 Infused .Q2H RANDALL Infusion Vancomycin HCl 1,750 mg/ 500 mls @ 250 mls/hr 12/13/17 08:00 Sodium Chloride IV 12/13/17 08:00 Q24H RANDALL Sodium Bicarbonate 100 meq/ 1,100 mls @ 75 mls/hr 12/12/17 14:00 12/13/17 12: 30 Dextrose IV Infused .[id number] RANDALL Infusion Vancomycin HCl 1,250 mg/ 250 mls @ 200 mls/hr 12/14/17 08:00 12/14/17 11:00 Sodium Chloride IV Infused Q48H RANDALL Infusion Zoledronic Acid 3 mg in 75 mls @ 150 mls/hr 12/13/17 12:00 12/13/17 14:59 Zometa IV 12/13/17 12:29 Infused O ONE Infusion Sodium Bicarbonate 100 meq/ 1,100 mls @ 100 mls/hr 12/13/17 12:30 12/16/17 12 :04 Dextrose IV Not Given .Q11H RANDALL Cefepime HCl 1 gm/ Sodium 100 mls @ 200 mls/hr 12/14/17 19:30 12/15/17 01:35 Chloride IV Infused Q6H R[facility]ALL Infusion Cefepime HCl 1 gm/ Sodium 50 mls @ 200 mls/hr 12/15/17 09:00 12/17/17 09:25 Chloride IV Infused Q6HR RANDALL Infusion Vancomycin HCl 1,000 mg/ 250 mls @ 250 mls/hr 12/15/17 12:00 12/16/17 14:11 Sodium Chloride IV 12/17/17 11:59 Infused Q24H RANDALL Infusion Dextrose/Sodium Chloride 1,000 mls @ 75 mls/hr 12/15/17 13:30 12/19/17 14:00 D5-1/2ns IV Infused .[id number] RANDALL Infusion Dexamethasone 10 mg/ Sodium 52.5 mls @ 210 mls/hr 12/16/17 14:00 12/16/17 14: 39 Chloride IV 12/16/17 14:14 Infused O ONE Infusion Carboplatin 377 mg/ Dextrose 287.7 mls @ 250 mls/hr 12/16/17 14:30 12/16/17 16:00 IV 12/16/17 15:39 Infused O ONE Infusion Etoposide 100 mg/ Sodium 505 mls @ 125 mls/hr 12/16/17 15:30 12/16/17 20:00 Chloride IV 12/16/17 19:32 Infused O ONE Infusion Dexamethasone 10 mg/ Sodium 52.5 mls @ 150 mls/hr 12/17/17 14:00 12/17/17 14: 42 Chloride IV 12/17/17 14:20 Infused O ONE Infusion Etoposide 100 mg/ Sodium 505 mls @ 125 mls/hr 12/17/17 14:30 12/17/17 19:00 Chloride IV 12/17/17 18:32 Infused O ONE Infusion Vancomycin HCl 1,000 mg/ 250 mls @ 250 mls/hr 12/18/17 00:01 12/21/17 01:28 Sodium Chloride IV 12/21/17 11:00 Infused Q36H RANDALL Infusion Cefepime HCl 1 gm/ Sodium 50 mls @ 100 mls/hr 12/17/17 17:00 12/18/17 09:01 Chloride IV 100 mls/hr Q8HR RANDALL Administration Levofloxacin/Dextrose 750 mg in 150 mls @ 100 mls/hr 12/19/17 09:00 12/19/17 12:15 Levaquin Premix IV Infused Q48H RANDALL Infusion Dexamethasone 10 mg/ Sodium 52.5 mls @ 150 mls/hr 12/18/17 14:00 12/18/17 14: 38 Chloride IV 12/18/17 14:20 Infused O ONE Infusion Etoposide 100 mg/ Sodium 505 mls @ 125 mls/hr 12/18/17 14:30 12/18/17 14:38 Chloride IV 12/18/17 18:32 125 mls/hr O ONE Administration Albumin Human 100 mls @ 50 mls/hr 12/18/17 12:00 12/21/17 05:19 Albumin Human 25 Gm IV Infused Q8H RANDALL Infusion Cefepime HCl 1 gm/ Sodium 50 mls @ 100 mls/hr 12/18/17 21:00 12/21/17 09:18 Chloride IV 12/21/17 11:00 Infused Q12H RANDALL Infusion Potassium Chloride 40 meq/ 520 mls @ 100 mls/hr 12/19/17 13:00 12/19/17 19:00 Dextrose IV 12/19/17 18:11 100 mls/hr .[id number] RANDALL Infusion Potassium Chloride 40 meq/ 1,020 mls @ 100 mls/hr 12/21/17 10:00 12/23/17 07: 07 Dextrose IV Infused .[id number] RANDALL Infusion Albumin Human 50 mls @ 50 mls/hr 12/21/17 12:00 12/23/17 05:20 Albumin Human 12.5 Gm IV Infused Q8H RANDALL Infusion Rasburicase 3 mg/ Sodium 50 mls @ 100 mls/hr 12/21/17 14:30 12/21/17 19:51 Chloride IV 12/21/17 14:59 Infused O ONE Infusion Dextrose/Sodium Chloride 1,000 mls @ 75 mls/hr 12/22/17 18:45 12/23/17 11:56 D5-1/2ns IV Infused .[id number] RANDALL Infusion Dextrose 1,000 mls @ 75 mls/hr 12/23/17 11:15 12/24/17 16:30 Dextrose 5% In Water IV Infused .[id number] RANDALL Infusion 100 mls/hr Calcium Gluconate 1,000 mg/ 60 mls @ 200 mls/hr 12/23/17 18:32 12/23/17 19:52 Sodium Chloride IV 12/23/17 18:49 Infused O ONE Infusion Levofloxacin/Dextrose 750 mg in 150 mls @ 100 mls/hr 12/24/17 09:00 12/26/17 11:00 Levaquin Premix IV Infused Q48H RANDALL Infusion Calcium Gluconate 1,000 mg/ 60 mls @ 200 mls/hr 12/24/17 16:29 12/24/17 17:18 Sodium Chloride IV 12/24/17 16:46 Infused O ONE Infusion Sodium Bicarbonate 50 meq/ 1,050 mls @ 50 mls/hr 12/24/17 16:30 12/27/17 11: 05 Dextrose IV Not Given .Q21H RANDALL Potassium Chloride 10 meq in 100 mls @ 100 mls/hr 12/24/17 16:45 12/24/17 17: 18 Potassium Chloride Premix IV 12/24/17 18:44 Not Given Q1H RANDALL Potassium Chloride 10 meq/ 105 mls @ 100 mls/hr 12/24/17 17:30 12/24/17 20:05 Sodium Chloride IV 12/24/17 19:29 Infused Q1H RANDALL Infusion Calcium Gluconate 1,000 mg/ 60 mls @ 200 mls/hr 12/24/17 19:13 12/24/17 20:22 Sodium Chloride IV 12/24/17 19:30 Infused O ONE Infusion Calcium Gluconate 1,000 mg/ 60 mls @ 200 mls/hr 12/25/17 08:49 12/27/17 11:06 Sodium Chloride IV 12/25/17 09:06 Infused O ONE Infusion Calcium Gluconate 1,000 mg/ 60 mls @ 200 mls/hr 12/25/17 16:59 12/27/17 11:05 Sodium Chloride IV 12/25/17 17:16 Infused O ONE Infusion Calcium Gluconate 2,000 mg/ 120 mls @ 50 mls/hr 12/26/17 05:03 12/26/17 08:05 Sodium Chloride IV 12/26/17 07:26 Infused O ONE Infusion Albumin Human 12.5 g/ IV 50 mls @ 50 mls/hr 12/26/17 16:10 12/26/17 20:45 Solution IV 12/26/17 17:09 Infused O ONE Infusion Calcium Gluconate 1,000 mg/ 60 mls @ 200 mls/hr 12/26/17 16:58 12/26/17 20:00 Sodium Chloride IV 12/26/17 17:15 Infused O ONE Infusion Cefepime HCl 1 gm/ Sodium 100 mls @ 200 mls/hr 12/27/17 08:15 Chloride IV Q8H R[facility]ALL Cefepime HCl 1 gm/ Sodium 50 mls @ 200 mls/hr 12/27/17 08:15 12/29/17 07:59 Chloride IV Infused Q8H R[facility]ALL Infusion Calcium Gluconate 1,000 mg/ 60 mls @ 200 mls/hr 12/27/17 08:40 12/27/17 10:00 Sodium Chloride IV 12/27/17 08:57 Infused O ONE Infusion Albumin Human 12.5 g/ IV 50 mls @ 50 mls/hr 12/27/17 18:30 12/28/17 14:27 Solution IV 12/28/17 11:29 Infused Q8H RANDALL Infusion Calcium Gluconate 2,000 mg/ 120 mls @ 50 mls/hr 12/27/17 18:18 12/27/17 22:00 Sodium Chloride IV 12/27/17 20:41 Infused O ONE Infusion Potassium Chloride 10 meq in 100 mls @ 100 mls/hr 12/28/17 18:00 12/28/17 23: 30 Potassium Chloride Premix IV 12/28/17 21:59 Infused Q1H RANDALL Infusion Insulin Aspart 1 - 5 unit 12/21/17 09:19 12/23/17 23:28 Novolog SQ 2 unit SS PRN Administration Hyperglycemia Protocol Magnesium Hydroxide 30 ml 12/07/17 12:53 Mom PO DAILY PRN Constipation Methylprednisolone Sodium Succinate 125 mg 12/15/17 15:30 12/21/17 08:50 Solu-Medrol IVP 125 mg Q6HR RANDALL Administration Methylprednisolone Sodium Succinate 125 mg 12/16/17 14:00 Solu-Medrol IVP PRN PRN For reaction to chemo Methylprednisolone Sodium Succinate 80 mg 12/21/17 10:24 12/25/17 08:30 Solu-Medrol IVP 80 mg Q6HR RANDALL Administration Methylprednisolone Sodium Succinate 80 mg 12/25/17 17:00 12/28/17 08:54 Solu-Medrol IVP 80 mg Q8HR RANDALL Administration Metoclopramide HCl 5 mg 12/17/17 14:30 12/19/17 10:58 Reglan Not Given Q6H RANDALL Metoclopramide HCl 10 mg 12/23/17 17:32 12/26/17 15:57 Reglan IVP 10 mg Q6H PRN Administration Metoclopramide HCl 10 mg 12/27/17 10:00 12/28/17 10:00 Reglan IVP 10 mg Q6H RANDALL Administration Metoclopramide HCl 5 mg 12/28/17 16:00 12/29/17 10:22 Reglan IVP 5 mg Q6H RANDALL Administration Miscellaneous Medication 1 each 12/27/17 08:05 12/27/17 11:05 Pharmacy Consult - Renal Dosing MC 12/27/17 08:06 Not Given O ONE Morphine Sulfate 2 mg 12/07/17 12:47 12/14/17 10:38 Morphine Sulfate Inj IVP 2 mg Q2HR PRN Administration Pain Morphine Sulfate 4 mg 12/14/17 11:20 12/19/17 09:54 Morphine Sulfate Inj IVP 4 mg Q2HR PRN Administration Pain Morphine Sulfate 2 - 4 mg 12/19/17 10:49 12/25/17 03:44 Morphine Sulfate Inj IVP 2 mg Q2HR PRN Administration Pain Nicotine 21 mg 12/07/17 10:45 12/26/17 09:06 Nicoderm TD 21 mg DAILY RANDALL Administration Nicotine 1 removal 12/08/17 09:00 12/26/17 09:05 Nicotine Patch Removal TD 1 removal DAILY RANDALL Administration Ondansetron HCl 4 mg 12/07/17 11:21 12/23/17 16:20 Zofran IVP 4 mg Q6H PRN Administration Nausea Palonosetron 0.25 mg 12/16/17 14:00 12/16/17 14:04 Aloxi IV 12/16/17 14:01 0.25 mg O ONE Administration Pharmacy Consult 1 each 12/11/17 11:34 Pharmacy Consult - Fall Risk XX 12/11/17 11:35 ONE TIME ONE Pharmacy Consult 1 each 12/19/17 17:12 Pharmacy Consult - Fall Risk XX 12/19/17 17:13 ONE TIME ONE Pharmacy Consult 1 each 12/29/17 11:30 Pharmacy Consult - Fall Risk XX 12/29/17 11:31 ONE TIME ONE Potassium Chloride 20 meq 12/12/17 13:58 12/12/17 14:14 K-Dur 20 Meq Tablet PO 12/12/17 13:59 20 meq O ONE Administration Potassium Chloride 20 meq 12/13/17 12:30 12/19/17 10:58 K-Dur 20 Meq Tablet PO Not Given BIDWM RANDALL Potassium Chloride 40 meq 12/26/17 16:09 12/26/17 16:37 K-Dur 20 Meq Tablet PO 12/26/17 16:10 40 meq O ONE Administration Potassium Chloride 20 meq 12/27/17 08:13 12/27/17 10:31 K-Dur 20 Meq Tablet PO 12/27/17 08:14 20 meq O ONE Administration Potassium Chloride 20 meq 12/27/17 12:00 12/27/17 11:53 K-Dur 20 Meq Tablet PO 12/27/17 12:01 20 meq O ONE Administration Promethazine HCl/Codeine 5 ml 12/07/17 12:49 Phenergan + Codeine PO Q6HR PRN Cough Rasburicase 3 mg 12/21/17 13:35 12/21/17 18:17 Elitek IV 12/21/17 13:36 Not Given O ONE Sodium Chloride 10 - 80 ml 12/07/17 08:43 12/20/17 15:18 Iv Flush IVF 40 ml PRN PRN Administration Flushing Sodium Chloride 500 ml 12/07/17 11:24 12/10/17 16:47 Normal Saline IV 500 ml PRN PRN Administration Sodium Chloride 500 ml 12/09/17 10:36 12/11/17 08:14 Normal Saline IV 500 ml PRN PRN Administration Sodium Chloride 500 ml 12/10/17 16:57 Normal Saline IV PRN PRN Sodium Chloride 500 ml 12/11/17 10:29 Normal Saline IV PRN PRN Sodium Chloride 500 ml 12/13/17 09:27 Normal Saline IV PRN PRN Sodium Chloride 500 ml 12/13/17 10:04 Normal Saline IV PRN PRN Sodium Chloride 500 ml 12/15/17 09:29 Normal Saline IV PRN PRN Sodium Chloride 500 ml 12/21/17 08:38 Normal Saline IV PRN PRN Sodium Chloride 500 ml 12/22/17 12:30 Normal Saline IV PRN PRN Sodium Chloride 500 ml 12/23/17 09:30 Normal Saline IV PRN PRN Sodium Chloride 500 ml 12/25/17 06:53 Normal Saline IV PRN PRN Sodium Chloride 500 ml 12/27/17 08:29 Normal Saline IV PRN PRN Sodium Chloride 500 ml 12/28/17 04:57 Normal Saline IV PRN PRN Spironolactone 12.5 mg 12/13/17 09:30 12/13/17 11:51 Aldactone PO 12/13/17 09:31 12.5 mg ONE TIME ONE Administration Vancomycin HCl 1 each 12/07/17 11:09 Pharmacy Consult - Vancomycin 12/07/17 11:10 O ONE Vancomycin HCl 1 each 12/07/17 11:21 Pharmacy Consult - Vancomycin 12/07/17 11:22 O ONE - Constitutional mild distress, somnolent Comments: Opens eyes to voice - Routine HEENT Exam Head: Present: normocephalic, atraumatic - Routine Neck Exam Present: supple. Absent: JVD - Routine Respiratory Exam Present: dyspnea, decreased breath sounds, diminished air movement Comments: BiPAP at 40% - Routine Cardiovascular Exam Present: S1, S2, no murmur, tachycardia - Routine Abdominal Exam Present: soft, non tender - Routine Extremities Exam Present: edema, pulses intact Comments: +4 pitting edema/weeping to BLE - Routine Skin Exam Present: intact, warm - Routine Neurological Exam Present: altered mental status, moving all extremities - Routine Psychiatric Exam Present: unable to assess - Urinary Catheter Management Urethral Cath placed during this visit: yes Urethral indwelling: Yes Reason for continuing: Prolonged Immobilization Insertion date: 12/07/17 Insertion time: 19:45 Results - Laboratory Findings Laboratory: Laboratory Results - last 48 hr 12/24/17 12/27/17 12/28/17 04:02 08:49 09:37 WBC RBC Hgb Hct MCV MCH MCHC RDW Std Deviation Plt Count MPV Neutrophils % (Manual) Lymphocytes % (Manual) Neutrophils # (Manual) Lymphocytes # (Manual) Hypochromasia Poikilocytosis Anisocytosis Tear Drop Cells Helmet Cells Schistocytes RBC Morph Comment Turbidity Sodium Potassium Chloride Carbon Dioxide Anion Gap BUN Creatinine GFR Calculation BUN/Creatinine Ratio Glucose Glucometer Calculated Osmolality Calcium Phosphorus Icterus Index Albumin Vit D 1,25-Dihydroxy 35 Specimen Hemolysis Blood Type O Positive Antibody Screen Negative Crossmatch ([facility]) See Detail Blood Product Request 1 unit pc issued 12/28/17 12/28/17 12/28/17 13:54 14:21 19:27 WBC RBC Hgb 8.4 L D Hct MCV MCH MCHC RDW Std Deviation Plt Count MPV Neutrophils % (Manual) Lymphocytes % (Manual) Neutrophils # (Manual) Lymphocytes # (Manual) Hypochromasia Poikilocytosis Anisocytosis Tear Drop Cells Helmet Cells Schistocytes RBC Morph Comment Turbidity Sodium Potassium Chloride Carbon Dioxide Anion Gap BUN Creatinine GFR Calculation BUN/Creatinine Ratio Glucose Glucometer 215 242 Calculated Osmolality Calcium Phosphorus Icterus Index Albumin Vit D 1,25-Dihydroxy Specimen Hemolysis Blood Type Antibody Screen Crossmatch ([facility]) Blood Product Request 12/29/17 12/29/17 12/29/17 01:00 04:06 04:06 WBC 0.0 L* RBC 2.78 L Hgb 8.2 L Hct 23.8 L D MCV 85.6 MCH 29.5 MCHC 34.5 RDW Std Deviation 56.5 H Plt Count 5 L* D MPV Not performed Neutrophils % (Manual) Not performed Lymphocytes % (Manual) 100.0 H Neutrophils # (Manual) Lymphocytes # (Manual) 0.0 L Hypochromasia Poikilocytosis 1+ Anisocytosis 1+ Tear Drop Cells 1+ Helmet Cells 1+ Schistocytes 1+ RBC Morph Comment Abnormal Turbidity < 20 Sodium 155 H Potassium 3.8 Chloride 116 H Carbon Dioxide 24 Anion Gap 15 BUN 118.0 H* Creatinine 2.5 H GFR Calculation 27 BUN/Creatinine Ratio 47 H Glucose 126 H Glucometer 199 Calculated Osmolality 337 H Calcium 6.1 L Phosphorus 4.4 Icterus Index < 2 Albumin 2.7 L Vit D 1,25-Dihydroxy Specimen Hemolysis < 15 Blood Type Antibody Screen Crossmatch ([facility]) Blood Product Request 12/29/17 12/29/17 12/29/17 07:34 11:37 13:19 WBC RBC Hgb Hct MCV MCH MCHC RDW Std Deviation Plt Count MPV Neutrophils % (Manual) Lymphocytes % (Manual) Neutrophils # (Manual) Lymphocytes # (Manual) Hypochromasia Poikilocytosis Anisocytosis Tear Drop Cells Helmet Cells Schistocytes RBC Morph Comment Turbidity Sodium Potassium Chloride Carbon Dioxide Anion Gap BUN Creatinine GFR Calculation BUN/Creatinine Ratio Glucose Glucometer 174 149 Calculated Osmolality Calcium Phosphorus Icterus Index Albumin Vit D 1,25-Dihydroxy Specimen Hemolysis Blood Type Antibody Screen Crossmatch ([facility]) Blood Product Request 1 unit ppp issued 12/29/17 12/29/17 12/30/17 18:38 19:21 02:13 WBC RBC Hgb Hct MCV MCH MCHC RDW Std Deviation Plt Count 30 L D MPV Neutrophils % (Manual) Lymphocytes % (Manual) Neutrophils # (Manual) Lymphocytes # (Manual) Hypochromasia Poikilocytosis Anisocytosis Tear Drop Cells Helmet Cells Schistocytes RBC Morph Comment Turbidity Sodium Potassium Chloride Carbon Dioxide Anion Gap BUN Creatinine GFR Calculation BUN/Creatinine Ratio Glucose Glucometer 174 284 Calculated Osmolality Calcium Phosphorus Icterus Index Albumin Vit D 1,25-Dihydroxy Specimen Hemolysis Blood Type Antibody Screen Crossmatch ([facility]) Blood Product Request 12/30/17 12/30/17 12/30/17 04:01 04:01 07:33 WBC 0.1 L* D RBC 2.44 L Hgb 7.4 L Hct 21.3 L MCV 87.3 MCH 30.3 MCHC 34.7 RDW Std Deviation 58.6 H Plt Count 19 L* D MPV 10.9 Neutrophils % (Manual) 50.0 Lymphocytes % (Manual) 50.0 H Neutrophils # (Manual) 0.1 L Lymphocytes # (Manual) 0.1 L Hypochromasia 1+ Poikilocytosis 1+ Anisocytosis 1+ Tear Drop Cells 1+ Helmet Cells Schistocytes 1+ RBC Morph Comment Abnormal Turbidity 76 H Sodium 153 H Potassium 3.6 Chloride 117 H Carbon Dioxide 22 Anion Gap 14 BUN 133.0 H* Creatinine 2.5 H GFR Calculation 27 BUN/Creatinine Ratio 53 H Glucose 223 H Glucometer 266 Calculated Osmolality 344 H Calcium 5.9 L* Phosphorus 4.2 Icterus Index < 2 Albumin 2.4 L Vit D 1,25-Dihydroxy Specimen Hemolysis < 15 Blood Type Antibody Screen Crossmatch (AHG) Blood Product Request Assessment and Plan - Assessment and Plan Acute Hypoxic Respiratory Failure RUL pneumonia Right pleural effusion - improved 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 currently on BiPAP 40%, R 12, 125. At 10am will place pt. on NC per family request. Pt. will be comfort care, Fentanyl and Ativan as needed. Currently on A/A, solumedrol and cefepime - Meds to be stopped with comfort care measures. Pulm to sign off secondary to comfort care. - Time Spent With Patient Total time spent is greater than 50% in coordination of care (as documented) at patient's floor/unit and/or counseling patient: less than 15 minutes
--- NOTE | 2017-12-30 11:06 | Progress Note ---
- Date 12/30/17 Subjective: Mr. Baker is surrounded by multiple family members; BiPAP was utilized virtually all of the night with occasional patient attempts to remove the mask. Breathing is agonal when BiPAP was soft briefly and patient's color is pale/dusky off BiPAP with rapid desaturation. Ativan and fentanyl were used throughout the night to assist restlessness and air hunger. Urine output remains poor despite scheduled Bumex. Family report patient is opened his eyes once or twice but has been nonverbal. There is persistent serous drainage from the scrotum, legs, and arms. Patient's sister advised me that family anticipates discontinuing BiPAP this morning and is considering withdrawal of all other acute interventions. Objective Vital signs: Temperature 97.8 F 12/30/17 04:00 Pulse Rate 132 H 12/30/17 06:00 Respiratory Rate 24 12/30/17 07:39 Blood Pressure 108/71 12/30/17 06:00 Pulse Oximetry 91 12/30/17 07:39 Sedated, unresponsive to voice/examination Respirations appear moderately labored, BiPAP on. Upper anterior lung chamorro clear, lower anterior lung chamorro course Regular rhythm, tachycardic Abdomen distended, edema palpable and abdominal wall, bowel sounds nonoperable +4 edema thighs bilaterally, +2 edema calves/feet-legs elevated Rhythm: Sinus Tachycardia Height/Weight/BMI: Height 1.7 m Weight 81.7 kg Body Mass Index 28.2 Results - Labs CBC & Chem 7: 12/30/17 04:01 12/30/17 04:01 Labs: S50 L50 Microbiology Results: Microbiology 12/10/17 15:57 Peripheral/Iv Start Blood Culture - Final No Growth After 5 Days 12/10/17 16:00 Peripheral/Iv Start Blood Culture - Final No Growth After 5 Days 12/07/17 12:45 Sputum, Expectorated Gram Stain - Final 12/07/17 12:45 Sputum, Expectorated Sputum Culture - Final Pseudomonas aeruginosa Haemophilus influenzae Staphylococcus aureus Normal Resp Pallavi incl. Yeast 12/07/17 18:13 Urine Legionella Urinary Antigen - Final 12/07/17 18:13 Urine Streptococcus pneumoniae Antigen (M - Final Assessment and Plan (1) Septic shock Current visit: Yes Status: Acute (2) Pneumonia Current visit: Yes Status: Acute (3) Neuroendocrine carcinoma metastatic to liver Problem details: Lung/liver/bone involvement Current visit: Yes Status: Acute Assessment and Plan: IMPRESSION Sepsis secondary to Right sided pneumonia Septic shock based on lactate of 4.5 (per CMS) Severe sepsis based on 2016 Surviving Sepsis Guidelines Organ dysfunction = MAP <70, hyperbilirubinemia (2.4), thrombocytopenia ( 16) SOFA on admission = 7, presumed baseline of 0 Pneumonia -right upper lobe and right lower lobe-sputum positive for Pseudomonas , Haemophilus, and MSSA; Completed 14 days of cefepime, Levaquin, and vancomycin on 12/20. 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 Chemotherapy 12/16- for neuroendocrine malignancy. Pancytopenia (POA) including platelet count of 16, WBC 3.7, and hgb of 8.9 on admission Hyperbilirubinemia, elevated AST and Alk phos, POA Hypercalcemia-Zometa given 12/13--> hypocalcemia Hypoalbuminemia-improved with albumin IV Elevated LDH Elevated CRP and procalcitonin, secondary to acute infection Severe PCM - prealbumin undetectable Thrush Macrocytic anemia Rheumatoid arthritis-Imuran/Enbrel Acute on chronic Hyponatremia (POA) (baseline 131-134)-resolved Hypokalemia-12/19/17 Epistaxis, minor-12/20/17, resolved Pupil asymmetry noted 12/20, CT head without acute pathology. Immunocompromised pt-neutropenic, recent chemotherapy-start Levaquin prophylactically on 12/24/2017, will switch to cefepime 12/27/2017 for better Pseudomonas coverage with history of Pseudomonas. Encephalopathy-improving Sinus tachycardia Dysphagia-speech therapy consulted Volume overload/anasarca-worsening today Hypernatremia-12/21/17-slowly improving Metabolic acidosis-12/21/17-mild improvement with IV fluids with bicarbonate- currently resolved Acute Hypoxia respiratory failure-currently on 11 L; BiPAP when necessary initiated 12/18 LIEN-stable. With good urine output with when necessary Bumex. Hypocalcemia without symptoms-given IV calcium gluconate with slow improvement. Still on oral calcium Hyperuricemia -received rasburicase IV and uric acid level now normal Hyperglycemia secondary to steroids PLAN Increased respiratory distress late in the day yesterday; agonal breathing when not on BiPAP-labored breathing on BiPAP. Family gathering in anticipation of withdrawing interventions and allowing natural . Continue decline in renal function, recurrent hypocalcemia. Persistent pancytopenia although some early indication that marrow is recovering from prior course of chemotherapy. Functional status precludes additional chemotherapy at this time. Continue supportive care; TPN on hold as volume has not been tolerated. - Physician Narrative Narrative: Date: 12/30/17 Time: 1103 Hospital Course Summary Disclaimer: The visit summary below is not to be considered part of the above Progress Note. Hospital Course: 12/07/17 Admit, inpatient status, to CCU; Patient is critically ill. Dr. Vivar attending. Septic shock based on CMS and Severe Sepsis based on Surviving Sepsis He received full 30 mL/kg bolus in ED. If unable to keep MAP >65, will need to start norepinephrine, which would indicate shock based on 2016 rec. Initial lactate was 4.5; if lactate is still elevated >4 on recheck, this would also indicate shock based on 2016 recommendations. Blood cultures already drawn. Repeat physical exam done. Repeat procalcitonin in am. Sinus tachycardia has improved after fluid boluses, from 138-105. Right sided pneumonia in an immunocompromised patient with significant smoking history. Cefepime was started in the ED -- will continue with this and add vancomycin and levofloxacin d/t immunocompromised state. Check for strep pneumo and legionella. Check sputum culture. Consult Dr. Mckinney; suspect he may require additional respiratory intervention and with smoking hx likely has underlying COPD. Acapella, DuoNeb. Ask RT to provide tobacco cessation information. Nicotine patch ordered. Hold RA medications including Enbrel & Imuran. Pancytopenia Suspect d/t sepsis. If no improvement in next few days consider heme consultation. Platelets only 16 on admission. Will give platelet pack x1. Lovenox is contraindicated. SCD for DVT prevention. Macrocytic anemia - check iron studies, folate, vitamin B12. Hyperbilirubinemia Suspect d/t sepsis. Hepatomegaly and RUQ tenderness. He had liver sonogram in Aug, 2017 which was normal. Check INR. Hyponatremia and hypercalcemia Suspect d/t dehydration. Continue IVF and check in am. Advanced directives None. Requests full resuscitation. 12/08/17 Continue with levofloxacin, cefepime and vancomycin for pulmonary coverage. Neb treatments and acapella to continue. Monitor saturations and work of breathing - on 2L currently. Will have speech check swallow secondary to coughing with swallow. Hemoglobin decreased to 6.7 - transfusion initiated. Iron/B12/Folate tests pending. Platelets increased to 30K. Monitor. No Lovenox due to thrombocytopenia. Sodium with slight improvement to 128, but potassium decreased to 3.7. Will change IVF to NS with 20KCl and 20KPhos and decrease rate to 75cc/hr. BP improved. Recheck CMP, Mg, Phos, Procalcitonin, and CBC secondary to resolving septic shock. Continues to need close nursing care and support, continue CCU monitoring. 12/09/17 Continue with levofloxacin, cefepime and vancomycin for pulmonary coverage. Neb treatments and acapella to continue. Monitor saturations and work of breathing - on 2L currently. Start Mycelex lola for thrush. Speech check recommends pureed diet as very difficult to chew foods - may need to upgrade is not liking pureed consistency. Platelets decreased to 20K. Monitor. Give platelet pack. Hemoglobin improved to 8.2 post transfusion yesterday. Sodium improvement to 134, with potassium and phos normal at 4.2 and 4.3 respectively. Continue IVF to NS with 20KCl and 20KPhos but decrease rate to 50cc/hr. BP improved. HR still in 115 range. Start Bladder retraining - possible discontinue Rivas in near future. Start Miralax daily to help bowel function - hold with loose stool. PT/OT consult to help improve strength. Can transfer to medical floor for continuation of care. 12/10/17 The patient became confused last night and was pulling off his oxygen and pulled out his IV. He is more calm at this time but is still confused. With his severity of illness, will transfer back to intensive care when a bed is open. In the meantime will have his nurse stay close to his room and obtain continuous oximetry. Dr. Galarza was called and consulted regarding his pancytopenia. We'll check PTH regarding hypercalcemia. His hypercalcemia is likely worse than it appears since he also has hypoalbuminemia. Hold IV fluids for now. He is 9 L up on fluids. May require diuresis. Continue Rivas catheter for now. Check ammonia level regarding altered mental status. Continue with levofloxacin, cefepime and vancomycin for pneumonia with immunosuppression. Neb treatments and acapella to continue. Monitor saturations and work of breathing - now requiring 4 L PT/OT consult. 12/11/17 The patient had recurrence of elevated lactate yesterday despite continued treatment with triple antibiotics. Heart rate was back up to 130. The patient was given IV fluids. This morning hemoglobin is dropped to 7.9 and platelets are 18,000. Discussed with Dr. Galarza and we will give 1 platelet pack and 1 unit of blood. There is concern for occult malignancy and we will obtain a CT head, chest, abdomen and pelvis all without contrast today. Regarding his elevated calcium, PTH was low. Await results of CAT scans. Regarding Pseudomonas and MSSA pneumonia, continue Levaquin. Stop cefepime. Continue vancomycin for now until blood cultures have returned. 12/12/17 Continue levofloxacin and vancomycin for antimicrobial coverage. Dr Galarza considering initiation of chemotherapy. Discussed with Dr Galarza about patient significantly declined status-concern currently too ill to start chemo. Worry that a large component of patient's acute problems are due to his cancerous process - uncertain if will make much gains without treating cancer, but uncertain how well he could tolerate chemo. Ultimately decided to wait until final path report returns before initiating chemo. Dr Galarza starting treatments to help protect from tumor lysis. IVF change to D5W with 2amps Bicarb at 75cc/hr to alkalinize urine. 12/13/17 More somnolent and weak this afternoon. Oral drive decreased. Continue levofloxacin and vancomycin for antimicrobial coverage. Increase rate of D5W with 2amps Bicarb to 100 cc/hr. Did give Lasix 20mg IV to help minimize edema and increase urine output. Zometa initiated by Dr Galarza to help hypercalcemia. Cautious oral intake secondary to somnolence. Continue pain control. Restart cefepime due to worsening pneumonia. 12/14/17 Dr Samayoa discussed with family - with small cell cancer, only hope for survival is chemotherapy. With patient's significant decline, uncertain if pt could survive chemo. Will continue with antimicrobial therapy. Add Solu-Medrol to try to decrease pulmonary inflammation. Platelet transfusion given due to declining platelets of 15. IVF changed to D5 1/2NS at 75. Lasix given earlier to help motivate fluid. Will repeat dose this evening. 12/15/17 More somnolent today. Speech evaluated patient-recommends NPO (to somnolent and weak to attempt swallow). O2 needs increasing - 6L. Creatine with increase to 1.5, urine output decreasing. Platelets 27 after 2 platelet pack transfusion yesterday. HGB 7.9. Oncology planning chemotherapy this afternoon - high risk for complications, but not likely to survive without treating his cancer. Discussed with about code status. Would recommend DNR as if patient would arrest, feel resuscitative measures would be futile. needs to discuss with family about this. Will continue with antimicrobial therapy and Solu-Medrol. 12/16/17 Oncology planning chemotherapy this afternoon - high risk for complications, but not likely to survive without treating his cancer. Discussed with about code status. Would recommend DNR as if patient would arrest, feel resuscitative measures would be futile. needs to discuss with family about this. Will continue with antimicrobial therapy and Solu-Medrol. 12/17/17 Family has elected to convert to DO NOT RESUSCITATE status. Chemotherapy initiated with etoposide and carboplatin; platelets being given today for count of 20. Ongoing antibiotic therapy-day 11. Persistent dysphasia with minimal oral intake, Dobbhoff to be placed. 12/18/17 Persistent pancytopenia; day 3 chemotherapy, day 12 triple antibiotics for sepsis. Oxygen demand increasing, creatinine climbing-converted to Bumex with albumin to attempt to diurese. Chest x-ray with increasing pleural effusions and pulmonary edema. Unable to place Dobbhoff and volume status precludes TPN. Prognosis guarded at best. 12/19/17 Date 13 antibiotics with cefepime, Levaquin, and vancomycin. Remains on high dose methylprednisolone for respiratory distress. Dependent on high flow oxygen/BiPAP. Chemotherapy 12/16-12/18 for neuroendocrine malignancy. G-CSF initiated 12/19. Remains pancytopenic, 1 unit packed red blood cells today. Will require platelets if any evidence of blood loss. Anticipate platelet transfusion tomorrow. Calcium stable following treatment. Urine output improving with albumin/Bumex; BUN climbing-continue regimen today but may not be able to continue if uremia progresses. IV fluids discontinued; supplement potassium IV due to inability to take oral medications. Repeat chest x-ray in a.m. 12/20/17 Remains pancytopenic, 1 unit packed red blood cells yesterday. Platelet pack today; Afrin nasal spray as needed for minor epistaxis-no ongoing bleeding this morning. Pupil asymmetry not previously present-mental status has not deteriorated compared to yesterday or the prior day and if anything patient may be slightly more alert but with thrombocytopenia will require CT head. Will also image abdomen/pelvis due to persistent/increasing abdominal pain to exclude intra-abdominal bleed. No contrast to be given. Calcium stable following treatment. Urine output improved with albumin/Bumex; however BUN climbing. Continue albumin but will hold Bumex today. Mycelex troches discontinued nursing request, will coated tongue with nystatin suspension for management of thrush will remains on antibiotics or neutropenic. 12/21/17 Completed 14 days of cefepime, Levaquin, and vancomycin on 12/20. Remains on high dose methylprednisolone for respiratory distress. Dependent on high flow oxygen/BiPAP. Chest x-ray/exam slightly improved from pulmonary perspective. Chemotherapy 12/16-12/18 for neuroendocrine malignancy. G-CSF initiated 12/19. Neutropenic precautions initiated 12/21. Remains pancytopenic, requires blood products intermittently-will receive packed red blood cells and platelets today. Pupil asymmetry noted yesterday, CT head without acute pathology. Will discuss MRI brain with Dr. Galarza. Abdominal imaging yesterday compatible with volume overload/anasarca but no evidence of acute intra-abdominal process or hemorrhage. Sodium climbing and potassium down with attempted diuresis-D5 with KCl initiated , electrolytes to be reevaluated later in the day. Diuretics discontinued yesterday, albumin infusions decreased to 12.5 g every 8 hours. 12/22/17 Remains pancytopenic, requires blood products intermittently-will receive platelets again today. Uric acid slightly better today after IV dose of Rasburicase yesterday-redose tomorrow if no further improvement; taking allopurinol. Pupil asymmetry noted 12/20, CT head without acute pathology. Sodium stable/slightly improved with D5 infusion; potassium has corrected. Persistent metabolic acidosis consistent with renal failure. Urine output acceptable off diuretics, continue low-dose albumin due to extensive third spacing of fluids. If creatinine/BUN rise further will require volume replacement. Calcium low however I'm reluctant to treat with calcium given elevated phosphorus-continue to monitor. Mycelex troches discontinued several days ago; nystatin suspension for management of thrush while neutropenic. Given improvement in mental status and patient interest in food will resume speech therapy. PICC line to be withdrawn 4-5 cm based on chest x-ray findings. 12/23/2017 PLAN Completed 14 days of cefepime, Levaquin, and vancomycin on 12/20. Remains on methylprednisolone for respiratory failure. Dependent on high flow oxygen/BiPAP. Chemotherapy 12/16-12/18 for neuroendocrine malignancy. G-CSF initiated 12/19. Neutropenic precautions initiated 12/21. Remains pancytopenic, requires blood products intermittently-receive platelets yesterday, will replace again today. Uric acid slightly better today after IV dose of Rasburicase-taking allopurinol. Pupil asymmetry noted 12/20, CT head without acute pathology. Discussed acute kidney injury with anasarca with nephrology. Recommended D5W to help with hypernatremia. Recommended discontinuation of albumin at this time now that albumin is over 3. Could repeat IV albumin if albumin level drops below 3. Would give intermittent IV Bumex if needed for worsening urine output or hypoxia. Will obtain chest x-ray tomorrow. Discussed hypocalcemia with nephrology as well, will give Tums with meals and check a vitamin D level. If vitamin D level is low, start vitamin D. We'll still need to monitor closely for recurrence of hypercalcemia. If patient becomes symptomatic from hypocalcemia, can give IV calcium. Mycelex troches discontinued several days ago; nystatin suspension for management of thrush while neutropenic. Encourage oral nutrition, speech therapy has been consulted. Discussed thrombocytopenia and dark blood in posterior pharynx with Dr. Galarza, he recommends platelet transfusion today. Case discussed with CCU nursing, nephrology and oncology. The patient is critically ill. Greater than 45 minutes of critical care time spent seeing and evaluating the patient, determining care plan and discussing with consultants. Prognosis remains guarded. 12/24/2017 PLAN Start Levaquin prophylactically regarding neutropenia Remains on methylprednisolone and breathing treatments for respiratory failure. Chest x-ray is slowly improving. Dependent on high flow oxygen/BiPAP. Continue G-CSF (initiated 12/19). Neutropenic precautions initiated 12/21. Remains pancytopenic, requires blood products intermittently-receive platelets yesterday. Uric acid normalized-continue allopurinol. Hypocalcemia without symptoms-given IV calcium gluconate 1 g times one yesterday. Oral calcium initiated. Vitamin D levels pending Regarding worsening hypernatremia, increase D5W to 100 ML's per hour Discussed acute kidney injury with anasarca with nephrology 12/23/2017. Recommended D5W to help with hypernatremia. Recommended discontinuation of albumin at this time now that albumin is over 3. Could repeat IV albumin if albumin level drops below 3. Repeat renal panel this afternoon Would give intermittent IV Bumex if needed for worsening urine output or hypoxia. Nystatin suspension for management of thrush while neutropenic. Encourage oral nutrition, speech therapy has been consulted. Continue daily CBC and renal panel. Check liver enzymes tomorrow. LDH is slowly improving Increase sliding scale insulin for hyperglycemia Case discussed with CCU nursing, and Dr. Galarza. The patient is critically ill. Greater than 45 minutes of critical care time spent seeing and evaluating the patient, determining care plan and discussing with consultants. Prognosis remains guarded. 12/25/2017 PLAN Clinically the patient appears stable. He continues to have good urine output without diuretics or albumin. BUN and creatinine remain elevated at 103 and 2.4 respectively. Patient continues to have fairly severe pancytopenia and white count today is 0. Hemoglobin 7.2. Platelets are 5. Fortunately, he has not had any bleeding overnight. By mouth intake is intermittent and we are encouraging increased caloric intake. Unable to place Dobbhoff. We'll start a multivitamin once daily. Due to nightmares, we'll discontinue morphine at patient's request. We'll have when necessary Dilaudid available if needed. Remains on methylprednisolone and breathing treatments for respiratory failure, consider decreasing steroids. Chest x-ray is slowly improving. Dependent on high flow oxygen/BiPAP. Continue G-CSF (initiated 12/19). Neutropenic precautions initiated 12/21. Remains pancytopenic, requires blood products intermittently-give platelets today for platelet count of 5 Uric acid normalized-continue allopurinol. Hypocalcemia without symptoms-give IV calcium again today. Oral calcium initiated. Vitamin D levels pending Regarding hypernatremia and metabolic acidosis, continue D5W with 1 amp of bicarbonate Recheck renal panel later today. Would give intermittent IV Bumex if needed for worsening urine output or hypoxia. Nystatin suspension for management of thrush while neutropenic. Encourage oral nutrition, speech therapy has been consulted. Continue daily CBC and renal panel. Continue sliding scale insulin for hyperglycemia The patient is critically ill. Greater than 45 minutes of critical care time spent seeing and evaluating the patient, determining care plan Prognosis remains guarded. 12/27/2017 PLAN Clinically, the patient appears more edematous today. Will decrease IV fluid rate to 50. Will get Bumex 1 mg IV 1 now and recheck renal panel later today. Patient was given 2 g of calcium gluconate IV this morning. We'll recheck this afternoon. The patient is asymptomatic from hypocalcemia. Vitamin D levels are pending. Oral intake has increased. Encourage supplement shakes for added nutrition. Platelets are better today. He did receive a platelet pack yesterday. No bleeding noted yesterday or today. Patient continues to require 15 L per high flow nasal cannula. Solu-Medrol decreased yesterday. Regarding severe neutropenia, Continue G-CSF (initiated 12/19). Neutropenic precautions initiated 12/21. Anemia is stable Uric acid normalized-continue allopurinol. Hypernatremia is better, decrease IV fluid rate to 50. Considered DC IV fluids if blood pressure is stable Recheck renal panel later today. Continue Levaquin for prophylaxis while patient is neutropenic Nystatin suspension for management of thrush while neutropenic. Continue daily CBC and renal panel. Continue sliding scale insulin for hyperglycemia The patient is critically ill. Greater than 45 minutes of critical care time spent seeing and evaluating the patient, determining care plan Prognosis remains guarded. 12/28/17 Persistent pancytopenia, 1 unit packed red blood cells given today. Potassium supplemented IV. Remains on high flow oxygen, Solu-Medrol decreased further. Sodium level climbing again after attempts to diurese over the weekend. May require resumption of fluids if climb significantly. 12/29/17 Worsening edema, serous drainage from bilateral lower extremities and right upper extremity present today. Sodium, BUN, and creatinine climbing slowly. Albumin down slightly. Discussed options with the patient's -prognosis poor however management of electrolytes and improve nutrition or critical if patient is any chance of survival. Subsequently TPN will be initiated recognizing that the volume management will be problematic. Bumex will be added later today in anticipation of need to take equivalent volume off. Calcium lower-replace IV today. Platelets down-platelet pack to be given. Profound neutropenia persists, continue Neupogen. Continue supportive care; will attempt to discuss goals with patient's when she is available-patient no longer capable of participating in conversations. 12/30/17 Increased respiratory distress late in the day yesterday; agonal breathing when not on BiPAP-labored breathing on BiPAP. Family gathering in anticipation of withdrawing interventions and allowing natural . Continue decline in renal function, recurrent hypocalcemia. Persistent pancytopenia although some early indication that marrow is recovering from prior course of chemotherapy. Functional status precludes additional chemotherapy at this time. Continue supportive care; TPN on hold as volume has not been tolerated.
[2017-12-30] MEDS: CALCIUM 600 + VIT D 400 TABLET PO SCH (11:58)
[2017-12-30] MEDS: ALLOPURINOL 100 MG TABLET PO SCH (11:58)
[2017-12-30] MEDS: MULTI-VITAMIN + MINERAL TABLET PO SCH (11:59)
[2017-12-30] MEDS: NYSTATIN 500,000 units/5 ml ORAL LIQUID PO SCH (11:59)
[2017-12-30 12:12] VITALS: TEMP 98.9
[2017-12-30] MEDS ORDERED: ALBUTEROL/IPRATROPIUM 2.5mg-0.5mg/3ml NEB AEROSOL PRN (12:22)
[2017-12-30 13:25] VITALS: BP 43/27; PULSE 66; RESP 11; O2SAT 80
[2017-12-30] MEDS ORDERED: AMINO ACIDS IV SCH (16:00)
[2017-12-30] MEDS ORDERED: DEXTROSE IV SCH (16:00)
--- NOTE | 2018-01-04 19:23 | Discharge Summary ---
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 Kervin [facility] course: Mr. Baker was admitted on 12/07/17 to the intensive care unit in critical condition. On admission he was diagnosed with septic shock attributed to pneumonia. He was pancytopenic on admission. Triple antibiotic therapy was initiated due to patient's underlying immunocompromise state secondary to treatment for rheumatoid arthritis. Sputum was positive for Pseudomonas, Haemophilus, and MSSA. The patient eventually completed a 14 day course of antibiotics on 12/20. He was noted to be pancytopenic on presentation and had an elevated bilirubin with hepatomegaly and right upper quadrant tenderness. Additionally he was hypercalcemic on admission. The patient was seen in consultation by Dr. Galarza to the hematologic abnormalities. 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 Bone marrow biopsy revealed markedly necrotic bone marrow consistent with metastatic carcinoma. Chemotherapy was initiated several days after neuroendocrine cancer was diagnosed recognizing high risk of treatment and advanced disease. The patient required transfusion of platelets and red cells throughout this hospitalization for support; hypercalcemia was treated with Zometa leading to hypocalcemia which eventually required calcium supplementation. Following chemotherapy the patient had poor tolerance of oral intake. He developed progressive third spacing of fluid and poor urine output. Patient's and family collectively made the decision to convert to DO NOT RESUSCITATE status as the patient had developed increasing encephalopathy and was not able to consistently participate in decision-making. The patient maintained virtually no oral intake and feeding tube could not be placed due to thrombocytopenia and recurrent bleeding with attempts to pass a Dobbhoff. Volume status did not permit TPN although it was ultimately tried. Renal function worsened gradually; diuresis was attempted with albumin due to third spacing. Following chemotherapy the patient's white count dropped to 0 and he had persistent critical neutropenia. GCSF was initiated on 12/19 and continued throughout the remainder of the patient's life. The patient required high flow oxygen and BiPAP for respiratory support throughout the hospitalization. He was on high-dose steroids throughout much of the hospitalization to minimize pulmonary inflammation. On 12/[address] began to deteriorate more rapidly with agonal respirations described. Family remained at bedside throughout the night and BiPAP was used to support ventilation until additional family could arrive. Family asked that all care focus on comfort on the night of 12/29-12/30. When additional family members arrived 12/30 BiPAP was discontinued with all care directed at maintaining patient's comfort. He with family members at bedside at 12:40 pm on 12/30/17.
== END 2017-12-30 14:00 | disposition expired | DRG 853 ==
LOC: ED 08:31 → CCU 09:44 → SUATTDRO 09:44 → CCU 10:30 → MED 12-09 14:29 → CCU 12-10 15:00
PROVIDERS: ADMIT Hospitalist; ATTEND Internal Medicine